=== PATIENT | male | born 1955 | race Caucasian/White ===

== ENCOUNTER 2018-09-22 09:49 | Outpatient (REF) | payer OTHER, MEDICAID, SELFPAY ==
[2018-09-22 22:15] LABS: ALT 42 U/L (12-78); AST 21 U/L (15-37); Albumin 4.1 g/dL (3.4-5.0); Alkaline Phosphatase 73 U/L (46-116); Bilirubin, Direct 0.14 mg/dL (0.00-0.20); Bilirubin, Total 0.5 mg/dL (0.2-1.0); Total Protein 7.6 g/dL (6.4-8.2)
[2018-09-24 19:48] LABS: Tissue Transglutaminase Ab IgA 11.1 U/mL
== END 2018-09-22 10:09 ==
LOC: NCHCN 09:49
PROVIDERS: PCP Registered Nurse; Visit Provider Internal Medicine
DX: R10.13 Epigastric pain (principal)
CPT/HCPCS: 80076; 83516

== ENCOUNTER 2019-09-26 08:59 | Outpatient (REF) | payer OTHER, SELFPAY ==
[2019-09-26 22:52] LABS: BUN 19 mg/dL (7-18); CREATININE 0.75 mg/dL (0.70-1.30); Calcium 8.3 mg/dL (8.5-10.1); Calculated LDL 125 mg/dL; Chloride 104 mmol/L (98-107); Cholesterol 197 mg/dL (<200); Glucose 95 mg/dL (74-106); HDL Cholesterol 54 mg/dL (40-60); Sodium 141 mmol/L (136-145); Triglyceride 90 mg/dL (<150)
== END 2019-09-26 09:19 ==
LOC: NCHCN 08:59
PROVIDERS: PCP Registered Nurse; Visit Provider Internal Medicine
DX: Z00.00 Encounter for general adult medical examination without abnormal findings (principal); R03.0 Elevated blood-pressure reading, without diagnosis of hypertension; Z13.220 Encounter for screening for lipoid disorders
CPT/HCPCS: 80048; 80061

== ENCOUNTER 2020-03-07 11:15 | Outpatient (REF) | payer OTHER, SELFPAY ==
[2020-03-07 21:40] LABS: Calculated LDL 130 mg/dL (<100); Cholesterol 213 mg/dL (<200); HDL Cholesterol 65 mg/dL (40-60); Triglyceride 91 mg/dL (<150)
== END 2020-03-07 11:35 ==
LOC: NCHCN 11:15
PROVIDERS: PCP Registered Nurse; Visit Provider Internal Medicine
DX: Z13.6 Encounter for screening for cardiovascular disorders (principal)
CPT/HCPCS: 80061

== ENCOUNTER 2020-08-13 11:46 | Outpatient (CLI) | payer OTHER, SELFPAY ==
--- NOTE | 2020-08-13 | DI.RAD_ITS ---
EXAM: XR HIP RT COMPLETE AP PELVIS CLINICAL HISTORY: INCREASED RT HIP PAIN S/P REVISION OF REGGIE, Z96.641 TECHNIQUE: COMPARISON: No exams were available for comparison FINDINGS: Three views were obtained. There are total hip joint replacements in position bilaterally. No prior radiographs available for comparison. On the left the visualized portions of the THR appear intact. On the right, the acetabular component appears well seated. The femoral component appears well seate d in the femur with proximal femoral deformity noted, cerclage wires appear intact in the proximal me taphyseal diaphyseal region. IMPRESSION: No gross displacement of right hip prosthesis. No prior films available for comparison so interval c hange cannot be assessed. RADIATION DOSE DELIVERED: Total DLP Total DLP
== END 2020-08-13 12:06 ==
PROVIDERS: PCP Registered Nurse; Visit Provider Orthopaedic Surgery
DX: Z96.641 Presence of right artificial hip joint (principal); M25.551 Pain in right hip
CPT/HCPCS: 73502

== ENCOUNTER 2020-10-05 09:56 | Outpatient (CLI) | payer OTHER, SELFPAY ==
[2020-10-05 13:34] LABS: ALT 32 U/L (16-63); AST 16 U/L (15-37); Albumin 3.9 g/dL (3.4-5.0); Alkaline Phosphatase 107 U/L (46-116); Bilirubin, Total 0.3 mg/dL (0.2-1.0); Total Protein 7.5 g/dL (6.4-8.2)
[2020-10-05 13:35] LABS: Bilirubin, Direct < 0.05 mg/dL (0.00-0.20)
[2020-10-08 10:43] LABS: PSA, Ultrasensitive 8.8 ng/mL (<= 4.5)
[2020-10-09 11:02] LABS: Testosterone, Total 370 ng/dL (240-950)
== END 2020-10-05 10:16 ==
PROVIDERS: PCP Registered Nurse; Visit Provider Radiology Radiation Oncology
DX: C61 Malignant neoplasm of prostate (principal)
CPT/HCPCS: 36415; 80076; 84153; 84403

== ENCOUNTER 2020-11-07 14:07 | Outpatient (CLI) | payer OTHER, SELFPAY ==
[2020-11-07 14:37] LABS: ALT 37 U/L (16-63); AST 20 U/L (15-37); Albumin 3.9 g/dL (3.4-5.0); Alkaline Phosphatase 124 U/L (46-116); Bilirubin, Total 0.3 mg/dL (0.2-1.0); Total Protein 7.8 g/dL (6.4-8.2)
[2020-11-07 14:43] LABS: Bilirubin, Direct < 0.05 mg/dL (0.00-0.20)
== END 2020-11-07 14:08 | disposition home or self-care (01) ==
PROVIDERS: PCP Registered Nurse; Visit Provider Radiology Radiation Oncology
DX: C61 Malignant neoplasm of prostate (principal)
CPT/HCPCS: 36415; 80076

== ENCOUNTER 2020-11-14 04:05 | Outpatient (CLI) | payer OTHER, SELFPAY ==
[2020-11-14 09:32] LABS: ALT 42 U/L (16-63); AST 22 U/L (15-37); Albumin 3.8 g/dL (3.4-5.0); Alkaline Phosphatase 103 U/L (46-116); Bilirubin, Direct 0.07 mg/dL (0.00-0.20); Bilirubin, Total 0.4 mg/dL (0.2-1.0); Total Protein 7.8 g/dL (6.4-8.2)
== END 2020-11-14 04:06 | disposition home or self-care (01) ==
LOC: LBO 04:05
PROVIDERS: PCP Registered Nurse; Visit Provider Radiology Radiation Oncology
DX: C61 Malignant neoplasm of prostate (principal)
CPT/HCPCS: 36415; 80076

== ENCOUNTER 2021-08-20 18:44 | Observation (INO) | payer OTHER, SELFPAY ==
[2021-08-20] VITALS (27 sets, daily range): BP systolic 150–191; BP diastolic 75–105; PULSE 57–86; RESP 11–22; TEMP 36.4; O2SAT 93–98
--- NOTE | 2021-08-20 19:15 | DI.CT_ITS ---
Exam(s) CT ABDOMEN PELVIS W EXAM: CT ABDOMEN PELVIS W CLINICAL HISTORY: UPper abd pain, Prostate cancer TECHNIQUE: Imaging Protocol: Axial computed tomography images with coronal and sagittal reformatted images were created and reviewed CONTRAST MATERIAL: Intravenous: Omnipaque 350 Contrast volume:100 mL Oral: No COMPARISON: No exams were available for comparison FINDINGS: ABDOMEN: Lung Bases: Dependent atelectasis. Liver: Diffuse fatty infiltration of the liver. No measurable mass. Hepatomegaly. The liver measure s 20 cm long. Portal, Superior Mesenteric, and Splenic Veins: Unremarkable. Gallbladder and Biliary Tract: Status post cholecystectomy. No biliary ductal dilatation. Pancreas: Normal density, no abnormal calcifications or inflammatory process. Spleen: Normal. Adrenals: No masses seen. Kidneys: Normal size, contour and axis. No radiodense stones or obstructive uropathy. Small bilateral parapelvic cysts. No follow-up is recommended. Abdominal Aorta: Abdominal portion non-dilated. Atherosclerosis. Bowel: No obstruction or bowel wall thickening. Appendix is unremarkable. Small hiatal hernia. There is diverticulosis seen throughout the colon. There is no convincing evidence of acute diverticuliti s. Peritoneal Cavity: No ascites, collection or mesenteric inflammatory response. No free air. Lymph Nodes: Within normal limits. Bones: Within normal limits for the patient's age. Bilateral total hip replacements. Soft Tissues: Unremarkable. Small fat containing paraumbilical hernia. PELVIS: Bladder: Grossly unremarkable. Portions of the urinary bladder obscured by artifact from the patient 's hip prostheses. Reproductive Organs: Prostatic radiation therapy is present. Lymph Nodes: Within normal limits. Bones: Within normal limits for the patient's age. IMPRESSION: No acute abdominal or pelvic process. RADIATION DOSE DELIVERED: 1,177.76mGy.cm Total DLP DATA REPOSITORY: All CT scans at this facility are submitted to the National Radiology Data Registry (NRDR) Dose Index Registry (DIR) with the [employer] (ACR). RADIATION OPTIMIZATION: All CT scans at this facility use at least one of these dose optimization te chniques: automated exposure control; mA and/or kV adjustment per patient size (includes targeted exa ms where dose is matched to clinical indication); or iterative reconstruction.
--- NOTE | 2021-08-20 19:25 | ED.GENADUL_ITS ---
Discharge Plan Disposition Patient Disposition: [facility] INPATIENT Condition: Improving Discharge Details Chief Complaint: Abd Prob Clinical Impression: Hepatitis Admit Date/Time: 08/20/21 21:41 Admit Provider: Dominick Garcia Attending Provider: Dominick Garcia Primary Care Provider: Kellen Nair ED Provider: Wayne Glasgow Medical Decision Making <Octavio Middleton MD - Last Filed: 08/20/21 19:29> 65-year-old male presents from home with his . He has had days of abdominal pain that worsened today. Patient has prostate cancer for which he is undergoing radiation therapy with Lupron injections. He was told at her office visit last week that his liver enzymes were elevated and the most recent Lupron Depo shot was skipped. Patient arrives to the ER pleasant, alert and interactive. His blood pressure elevated 191/87, pulse 67, and afebrile at 36.4. The patient has moderate abdominal tenderness on exam without significant focality and without rebound. Differential diagnosis includes bowel obstruction, ascites, transaminitis, peritonitis, metastatic cancer. Patient had IV access established, given fluids and parenteral analgesia, referred for laboratory testing and CT images. <Wayne Glasgow DO - Last Filed: 08/20/21 23:41> Patient was signed out to me by my colleague Dr. Octavio Middleton. Please refer to his HPI, physical exam, assessment and plan. At time of signout we are awaiting labs and imaging. Concern was for abdominal pain. Laboratory work-up shows notable transaminitis/hepatitis, WBC count mildly low compared to normal, lymphocyte count mildly low compared to normal. Review of the patient's labs from [facility] just yesterday demonstrate that his AST and ALT have doubled acutely in the last 24 hours. No biliary duct dilatation per CT scan. Bilirubin is elevated, with this primarily being attributed to the conjugated bilirubin suggesting acute hepatitis. Likely secondary to patient's medications, less likely viral. Lupron certainly could be the causative agent but he did not get his Lupron for the month of August yet secondary to this mild hepatitis. We will send a hepatitis screening panel. Patient's pain is well controlled with narcotics at this time. Because of the patient's age, risk factors, notable hepatitis I do feel that admission would be indicated at this time. Discussed the case with the hospitalist Dr. Almonte, he agrees with the assessment and plan. I will place bridging orders on his behalf. Repeat abdominal exam at this time demonstrates no evidence of an acute surgical abdomen requiring emergent surgical management. I have extensively reviewed the treatment plan with the patient. I have addressed all patient concerns at this time. I have also discussed the plan with the admitting physician and they agree with the current assessment and plan and have agreed to assume responsibility for the patient. All parties demonstrate verbal understanding and agreement with our assessment and plan at this time. The documentation in this chart was dictated using [employer] dictation software. Please excuse any dictation errors. FINDINGS: Lungs: Dependent subsegmental atelectasis. Liver: There is diffuse decrease in hepatic parenchymal density, consistent with severe fatty infiltration. Minimal hepatomegaly. No mass. Gallbladder and bile ducts: The patient is status post cholecystectomy. No biliary ductal dilatation. Pancreas: Normal. No ductal dilation. Spleen: Normal. No splenomegaly. Adrenal glands: Normal. No mass. Kidneys and ureters: Homogeneous enhancement of renal parenchyma. Bilateral parapelvic cysts. No hydronephrosis. Stomach and bowel: No bowel obstruction. Multiple colonic diverticula. Appendix: Normal appendix. Intraperitoneal space: Unremarkable. No free air. No significant fluid collection. Vasculature: Unremarkable. No abdominal aortic aneurysm. Lymph nodes: Unremarkable. No enlarged lymph nodes. Urinary bladder: Unremarkable as visualized. Reproductive: Status post prostatic brachytherapy. Bones/joints: Status post bilateral total hip replacements.The spine demonstrates moderate degenerative changes at multiple levels. No suspicious lucent or sclerotic bone lesions. Soft tissues: Unremarkable. IMPRESSION: 1. No acute findings. 2. Minimal hepatomegaly. 3. Colonic diverticula. 4. Parapelvic cysts. Thank you for allowing us to participate in the care of your patient. Dictated and Authenticated by: Joselo Saleem DO 08/20/2021 9:18 PM Eastern Time ([place] & C HPI <Octavio Middleton MD - Last Filed: 08/20/21 19:29> General Mode of arrival: ambulatory . Date/Time Provider Initiated Documentation: 08/20/21 19:06 . Limitations to Documentation: no limitations . Information obtained by: patient and family . History of Present Illness 65 year old M presents to the emergency department with the chief complaint of Abdominal pain, described as moderate, Quality is described as constant, Patient reports no radiation. Patient started experiencing this day(s) and it has been constant. No relieving factors improve symptom(s), No exacerbating factors reported . Patient notes loss of appetite; denies chest pain, cough, fever/chills and shortness of breath. Patient did receive the following treatments prior to arrival, none Related Data Home Medications Medication Instructions Recorded Confirmed oxycodone-acetaminophen [Percocet] 1 tab PO DIRECTED PRN 08/20/21 08/20/21 tamsulosin [Flomax] 0.4 mg PO DAILY 08/20/21 08/20/21 Allergies Allergy/AdvReac Type Severity Reaction Status Date / Time No Known Allergies Allergy Unverified 08/20/21 18:55 General Stated Complaint: Abd Prob BIPIN: 3 Review of Systems <Octavio Middleton MD - Last Filed: 08/20/21 19:29> Narrative: Undergoing prostate radiation therapy weekdays, Lupron injections the last of which was skipped for elevated liver enzymes. No cough, no fever. Nauseated without emesis. 8 systems reviewed and otherwise negative PFSH <Octavio Middleton MD - Last Filed: 08/20/21 19:29> Active Problem List (Updated 08/20/21 @ 23:41 by Wayne Glasgow DO) Prostate cancer (Chronic) Hepatitis (Acute) Social History Smoking/Tobacco Use Status: Never Smoking risk assessment performed?: Yes Alcohol Intake: never Substance use type: does not use Exam <Octavio Middleton MD - Last Filed: 08/20/21 19:29> Narrative Exam Narrative: GEN: awake, alert, oriented 3. Pleasant, well groomed, in teractive. HEAD: Normocephalic, atraumatic ENT: Mucous membranes dry, External ear exam unremarkable EYES: PERRL, EOMI NECK: Full ROM, no ADDY, no menigismus CHEST/RESP: Nontender, clear to auscultation bilateral, no wheeze/rhonchi/rales CARDIOVASCULAR: RRR, no murmur, rub minesh. 2+ Rad pulse bilateral ABDOMEN: Soft, tender in the upper to right abdomen without rebound, no mass. +Bowel sounds EXT: Full ROM, no edema, no rash Neuro: Grossly normal neurologic exam, conversant, interactive. Psych: Speech fluent, thoughts congruent, affect normal Course <Octavio Middleton MD - Last Filed: 08/20/21 19:29> Vital Signs Vital signs: Vital Signs Temperature 36.4 C L 08/20/21 18:49 Pulse 67 08/20/21 18:49 Respiratory Rate 16 08/20/21 18:49 Blood Pressure 191/87 H 08/20/21 18:49 Pulse Oximetry 96 08/20/21 18:49 Temperature 36.4 C L 08/20/21 18:49 Temperature Source Skin 08/20/21 18:49 Pulse 67 08/20/21 18:49 Respiratory Rate 16 08/20/21 18:49 Respiratory Effort 08/20/21 18:49 Blood Pressure 191/87 H 08/20/21 18:49 Blood Pressure Position Supine 08/20/21 18:49 Pulse Oximetry 96 08/20/21 18:49 Oxygen Delivery Method Room Air 08/20/21 18:49 Oxygen Flow Rate 0 08/20/21 18:49 Pain Level 8 08/20/21 19:10 Sign Out <Octavio Middleton MD - Last Filed: 08/20/21 19:29> Sign Out Data: Sign Out Comment: Abdominal pain, undergoing prostate cancer treatment, follow- up labs and imaging Last updated by Octavio Middleton MD at 08/20/21 19:31
[2021-08-20 19:37] LABS: Lactate 1.1 mmol/L (0.6-1.4)
[2021-08-20 19:39] LABS: Abs Immature Grans 0.02 10^3/uL (0.0-0.06); Absolute Basophil Count 0.04 10^3/uL (0.0-0.2); Absolute Eosinophil Count 0.16 10^3/uL (0.0-0.7); Absolute Lymphocyte Count 0.36 10^3/uL (1.2-3.4); Absolute Monocyte Count 0.48 10^3/uL (0.1-0.8); Absolute Neutrophil Count 2.09 10^3/uL (1.2-6.7); Basophils % 1.3; Eosinophils % 5.1; HCT 39.4 % (40.0-50.0); HGB 13.4 g/dL (13.5-17.5); Immature Grans % 0.6; Lymphocytes % 11.4; MCH 31.1 pg (27.0-33.0); MCV 91.4 fL (80-95); Monocytes % 15.2; Neutrophils % 66.4; Nucleated RBC 0 %; Platelet Count 190 10^3/uL (130-400); RBC 4.31 10^6/uL (4.36-5.78); RDW 13.3 % (11.8-14.1); RDW-SD 45.5 fL; WBC 3.15 10^3/uL (4.4-10.8)
[2021-08-20] MEDS: MORPHine 10 MG/ML VIAL 4 MG IVP (19:40)
[2021-08-20 19:58] LABS: AST 793 U/L (15-37); Albumin 3.6 g/dL (3.4-5.0); Alkaline Phosphatase 140 U/L (46-116); Anion Gap 12.2 mmol/L (3-11); BUN 18 mg/dL (7-18); Bilirubin, Total 2.2 mg/dL (0.2-1.0); CO2 23.8 mmol/L (21.0-32.0); CREATININE 0.8 mg/dL (0.70-1.30); Calcium 8.8 mg/dL (8.5-10.1); Chloride 102 mmol/L (98-107); Glucose 101 mg/dL (74-106); Lipase 102 U/L (73-393); Magnesium 2.2 mg/dL (1.8-2.4); Potassium 3.5 mmol/L (3.5-5.1); Sodium 138 mmol/L (136-145); Total Protein 7.1 g/dL (6.4-8.2)
[2021-08-20 20:14] LABS: ALT 1424 U/L (16-63)
[2021-08-20] MEDS: Omnipaque 350 MG/ML 100 ML BTL IJ (20:14)
[2021-08-20] MEDS: Normal Saline Flush 10 ML SYR IVP ×2 (20:15→22:55)
[2021-08-20 20:29] LABS: Bilirubin, Direct 1.5 mg/dL (0.0-0.2)
--- NOTE | 2021-08-20 21:18 | DI.VRAD_ITS ---
PROCEDURE INFORMATION: Exam: CT Abdomen And Pelvis With Contrast Exam date and time: 08/20/2021 7:25 PM Age: 65 years old Clinical indication: Abdominal pain; Localized; Prior surgery; Surgery date: 6+ months; Surgery type: Cholecystectomy, and both hips replaced; Patient HX: Upper abd pain increasing, ; additional info: Prostate cancer, currently being treated on lupron TECHNIQUE: Imaging protocol: Computed tomography of the abdomen and pelvis with contrast. Radiation optimization: All CT scans at this facility use at least one of these dose optimization techniques: automated exposure control; mA and/or kV adjustment per patient size (includes targeted exams where dose is matched to clinical indication); or iterative reconstruction. Contrast material: OMNIPAQUE 350; Contrast volume: 100 ml; Contrast route: INTRAVENOUS (IV); COMPARISON: CR XR HIP RT COMPLETE AP PELVIS 08/13/2020 1:17 PM FINDINGS: Lungs: Dependent subsegmental atelectasis. Liver: There is diffuse decrease in hepatic parenchymal density, consistent with severe fatty infiltration. Minimal hepatomegaly. No mass. Gallbladder and bile ducts: The patient is status post cholecystectomy. No biliary ductal dilatation. Pancreas: Normal. No ductal dilation. Spleen: Normal. No splenomegaly. Adrenal glands: Normal. No mass. Kidneys and ureters: Homogeneous enhancement of renal parenchyma. Bilateral parapelvic cysts. No hydronephrosis. Stomach and bowel: No bowel obstruction. Multiple colonic diverticula. Appendix: Normal appendix. Intraperitoneal space: Unremarkable. No free air. No significant fluid collection. Vasculature: Unremarkable. No abdominal aortic aneurysm. Lymph nodes: Unremarkable. No enlarged lymph nodes. Urinary bladder: Unremarkable as visualized. Reproductive: Status post prostatic brachytherapy. Bones/joints: Status post bilateral total hip replacements.The spine demonstrates moderate degenerative changes at multiple levels. No suspicious lucent or sclerotic bone lesions. Soft tissues: Unremarkable. IMPRESSION: 1. No acute findings. 2. Minimal hepatomegaly. 3. Colonic diverticula. 4. Parapelvic cysts. Dictated and Authenticated by: Joselo Saleem MD. Ordering:ROYAL Cunningham MD
[2021-08-20 22:02] LABS: Source Nasal/Nares
--- NOTE | 2021-08-20 22:20 | HPE_ITS ---
Date of service: 08/20/21 Time of Service: 22:20 Assessment and Plan Assessment and plan (1) Hepatitis: Status: Acute Assessment and plan: Etiology of the liver abnormalities is not clear at this time. We will check more labs and check an ultrasound of his abdomen tomorrow. Would be unusual for the Lupron to because of doubling of the liver tests in 1 day after having not had the drug for about 1 month. (2) Prostate cancer: Status: Chronic Assessment and plan: This appears to be stable at the present time. History of Present Illness History of Present Illness Chief Complaint: abd pain Narrative: This 65-year-old male is here because of abdominal pain. He said the intensity of its been 8-9 out of 10 at times. Been present on and off for last 2 to 3 months but got much worse today. He has felt that his abdomen has been somewhat bloated at times. He was diagnosed with localized prostate cancer in January of this year and after discussion with his doctors elected to do prostate seeds, spot radiation and Lupron infusions. His been getting Lupron infusions since January of this year. He came the emergency department today because of increased pain. He had labs done yesterday at [facility] which showed his AST to be about 450 ALT about 750 and his PSA test was near 0. However because of increased pain today he came here and was found to have much increased ALT and AST and an elevated bilirubin. He does not use any alcohol or tobacco or any other r ecreational drugs. 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 His only current medicines are tamsulosin and as needed Percocet for shoulder and hip pain and his Lupron. His last Lupron dose was given about a month ago. He did not get it yesterday because of the abnormal liver test. He has had some nausea and has had normal bowel movements. Has had 2 colonoscopies in the past which did show some polyps and will be getting another colonoscopy and 5 years from the last one. He has not vomited. Has no history of liver function abnormalities in the past. He has not been traveling recently except back and forth for his treatments. He has had both coronavirus vaccines. Has not been around anyone else has been sick. He lives with his and 2 children who are 27 and 16 years old. Previous surgeries include cholecystectomy and 2 hip replacements all of which have been done last year and a half. Review of Systems Constitutional Constitutional: Denies chills, Denies fever(s), Denies malaise and Denies poor appetite ENT Ears, Nose, Mouth, and Throat: Denies odynophagia Cardiovascular Cardiovascular: Denies chest pain, Denies rapid heart rate, Denies palpitations and Denies dyspnea Respiratory Respiratory: Denies chest congestion, Denies cough and Denies dyspnea Gastrointestinal Gastrointestinal: Reports abdominal pain, Reports bloating, Denies change in bowel habits, Denies coffee ground emesis, Reports heartburn, Denies diarrhea, Reports nausea, Denies odynophagia and Denies hematemesis Genitourinary Genitourinary: Reports difficulty urinating, Denies urinary frequency, Reports urinary hesitancy and Denies urinary urgency Endocrine Endocrine: Denies palpitations [facility] Active Problem List (Updated 08/20/21 @ 22:31 by Dominick Garcia MD) Prostate cancer (Chronic) Hepatitis (Acute) Social History Smoking/Tobacco Use Status: Never Smoking risk assessment performed?: Yes Alcohol Intake: never Substance use type: does not use Meds Allergies and Home Medications Allergies Allergy/AdvReac Type Severity Reaction Status Date / Time No Known Allergies Allergy Unverified 08/20/21 18:55 Home Medications Medication Instructions Recorded Confirmed Type oxycodone-acetaminophen [Percocet] 1 tab PO DIRECTED PRN 08/20/21 08/20/21 History tamsulosin [Flomax] 0.4 mg PO DAILY 08/20/21 08/20/21 History Exam Const General: cooperative and not ill appearing Nutritional Appearance: overweight Orientation: alert, awake and oriented x3 Eyes Eyelids: eyelids normal Conjunctivae: conjunctivae normal Sclera: sclerae normal Neck Neck: normal visual inspection and no lymphadenopathy Thyroid: thyroid normal Resp Effort & Inspection: normal respiratory effort and able to speak in complete sentences Auscultation: no rales, no rhonchi and no wheezes Cardio Jugular venous pressure: no JVD Rate: regular rate Rhythm: regular rhythm Heart Sounds: S1 normal, S2 normal, no gallops and no murmurs GI Inspection: normal to inspection Palpation: soft, no masses and nontender Other: Liver is palpable in the right upper quadrant just below the right costal margin. Neuro Cranial Nerves: CN's II-XI intact bilaterally Motor: muscle tone normal throughout Extrem General: normal to inspection and no pedal edema Results Labs Result diagrams: 08/20/21 19:10 08/20/21 19:10 Labs: Laboratory Results - last 24 hr 08/20/21 08/20/21 08/20/21 19:10 19:10 19:10 WBC 3.15 L RBC 4.31 L Hgb 13.4 L Hct 39.4 L MCV 91.4 MCH 31.1 MCHC 34.0 RDW 13.3 Plt Count 190 MPV 12.0 H Immature Gran % 0.6 Neutrophils % 66.4 Lymphocytes % 11.4 Monocytes % 15.2 Eosinophils % 5.1 Basophils % 1.3 Nucleated RBC % 0 Absolute Neutrophils 2.09 Absolute Lymphocytes 0.36 L Absolute Monocytes 0.48 Absolute Eosinophils 0.16 Absolute Basophils 0.04 VBG Lactate 1.1 Sodium 138 Potassium 3.5 Chloride 102 Carbon Dioxide 23.8 Anion Gap 12.2 H BUN 18 Creatinine 0.8 Estimated GFR/1.73 m2 >= 60.00 Glucose 101 Calcium 8.8 Magnesium 2.2 Total Bilirubin 2.2 H Conjugated Bilirubin AST 793 H ALT 1424 H Alkaline Phosphatase 140 H Total Protein 7.1 Albumin 3.6 Lipase 102 COVID-19 Source 08/20/21 08/20/21 19:10 21:56 WBC RBC Hgb Hct MCV MCH MCHC RDW Plt Count MPV Immature Gran % Neutrophils % Lymphocytes % Monocytes % Eosinophils % Basophils % Nucleated RBC % Absolute Neutrophils Absolute Lymphocytes Absolute Monocytes Absolute Eosinophils Absolute Basophils VBG Lactate Sodium Potassium Chloride Carbon Dioxide Anion Gap BUN Creatinine Estimated GFR/1.73 m2 Glucose Calcium Magnesium Total Bilirubin Conjugated Bilirubin 1.5 H AST ALT Alkaline Phosphatase Total Protein Albumin Lipase COVID-19 Source Nasal/Nares Last Vital Signs Temp 36.4 C L 08/20/21 18:49 Pulse 64 08/20/21 20:01 Resp 18 08/20/21 21:40 BP 150/75 H 08/20/21 20:01 Pulse Ox 97 08/20/21 21:40
[2021-08-20] MEDS: Normal Saline 1,000 ML 125 ML IV (22:55)
[2021-08-20 23:06] LABS: HCT 38.4 % (40.0-50.0); HGB 12.9 g/dL (13.5-17.5); MCH 30.9 pg (27.0-33.0); MCHC 33.6 % (32.0-36.0); MCV 92.1 fL (80-95); MPV 11.4 fL (8.0-11.0); Platelet Count 163 10^3/uL (130-400); RBC 4.17 10^6/uL (4.36-5.78); RDW 13.3 % (11.8-14.1); RDW-SD 45.7 fL; WBC 3.35 10^3/uL (4.4-10.8)
[2021-08-20] MEDS: oxyCODONE 5 mg/Acetaminophen 325 mg TAB 1 TAB PO (23:06)
[2021-08-20 23:42] LABS: COVID-19 PCR Negative (Negative)
[2021-08-20 23:47] LABS: Bilirubin Small (Negative); Blood Negative (Negative); Clarity Clear (Clear); Glucose Negative (Negative); Ketones Trace mg/dL (Negative); Leukocyte Esterase Negative (Negative); Nitrite Negative (Negative); Specific Gravity 1.015 (1.005-1.025); pH 5.5 (5-8)
--- NOTE | 2021-08-21 | DI.US_ITS ---
Exam(s) US ABDOMEN EXAM: US ABDOMEN CLINICAL HISTORY: hepatitis TECHNIQUE: Ultrasound abdomen performed using standard protocol. COMPARISON: CT CT ABDOMEN PELVIS W from 08/20/[address] ABDOMEN PELVIS W from 08/20/2021 FINDINGS: ABDOMINAL AORTA AND IVC: Visualized portions normal caliber. PANCREAS: Normal where visualized. LIVER: There is diffuse increased echogenicity of the liver consistent with fatty infiltration. The liver measures 19.6 cm long. Hepatopedal flow in the Portal Vein. GALLBLADDER: Status post cholecystectomy. BILIARY SYSTEM: Common bile duct measures 8.5 mm. No intrahepatic biliary ductal dilation. WRIGHT'S SIGN: Negative. KIDNEYS: Kidneys are symmetric in size. No evidence of renal calculi. No evidence of hydronephrosis. Bilateral parapelvic cysts. SPLEEN: Not enlarged. ASCITES: None seen. IMPRESSION: 1. Hepatomegaly and hepatic steatosis. 2. Status post cholecystectomy. DATA REPOSITORY:
[2021-08-21 00:56] LABS: Ammonia 22 umol/L (11-32)
[2021-08-21 01:16] LABS: Acetaminophen < 2 ug/mL (10-30)
[2021-08-21 04:30] VITALS: BP 135/78; PULSE 54; RESP 16; TEMP 36.5; O2SAT 94
[2021-08-21] MEDS: Normal Saline 1,000 ML 125 ML IV ×3 (06:01→22:21)
[2021-08-21 07:33] VITALS: BP 173/90; PULSE 56; RESP 18; TEMP 36.1; O2SAT 98
[2021-08-21 07:46] LABS: ESR 23 mm/hr (0-20)
[2021-08-21 08:07] LABS: AST 623 U/L (15-37); Albumin 3.3 g/dL (3.4-5.0); Alkaline Phosphatase 127 U/L (46-116); Anion Gap 6.5 mmol/L (3-11); BUN 13 mg/dL (7-18); Bilirubin, Total 2.1 mg/dL (0.2-1.0); CO2 30.5 mmol/L (21.0-32.0); CREATININE 0.9 mg/dL (0.70-1.30); Calcium 8.6 mg/dL (8.5-10.1); Calculated LDL 124 mg/dL (<100); Chloride 104 mmol/L (98-107); Cholesterol 215 mg/dL (<200); Glucose 107 mg/dL (74-106); HDL Cholesterol 78 mg/dL (40-60); Potassium 3.8 mmol/L (3.5-5.1); Sodium 141 mmol/L (136-145); Total Protein 6.4 g/dL (6.4-8.2); Triglyceride 66 mg/dL (<150)
[2021-08-21 08:32] LABS: ALT 1261 U/L (16-63); Ferritin 1143 ng/mL (26-388)
[2021-08-21 08:33] LABS: Iron 120 ug/dL (65-175); Total Iron Binding Capacity 261 ug/dL (250-450); Transferrin Sat 46 % (20-55)
[2021-08-21 08:52] LABS: *AMPHETAMINES SCREEN URINE Negative (Negative); *BARBITURATES SCREEN URINE Negative (Negative); *BENZODIAZEPINES SCREEN URINE Negative (Negative); Cannabinoids THC Negative (Negative); Cocaine Screen,Urine Negative (Negative); METHADONE URINE SCREEN Negative (Negative); OPIATES URINE SCREEN Positive (Negative)
[2021-08-21 08:56] LABS: Tricyclic Antidepressants Negative (Negative)
[2021-08-21 09:47] LABS: PTT Activated 22.3 sec (21.0-27.5); Prothrombin Time 10.2 sec (9.3-11.0)
[2021-08-21] MEDS: Tamsulosin 0.4 MG CAPCR PO (09:50)
--- NOTE | 2021-08-21 09:51 | PDOC.CMIN ---
- If Service Date Differs Date of service: 08/21/21 Time of Service: 09:51 Care Management Initial Assess REASON FOR HOSPITALIZATION:: Hepatitis PAST MEDICAL HISTORY/PAST SURGICAL HISTORY:: Active Problem List (Updated 08/20/21 @ 22:31 by Dominick Garcia MD). Prostate cancer (Chronic). Hepatitis (Acute) PREVIOUS FUNCTIONAL STATUS/SOCIAL/FAMILY SUPPORTS:: Dominick lives in [place], [place] with his Ele and 2 of his 4 children. He has 2 other adult children living outside the home. Dominick is semi-retired. 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 He is independent at baseline with all care and activities and continues to drive. CURRENT FUNCTIONAL STATUS:: Dominick was sitting up in bed when CM met with him. he was pleasant and cooperative and engaged easily with CM. Dominick shared that he has prostate cancer and is being treated with Lupron which he hads been told may be causing his hepatitis. His oncology team at [facility] is aware. ADVANCE DIRECTIVES:: none on file. states he has ADs and is [facility] Has patient been provided with info about the portal/API?: Yes Did the patient sign up for the portal?: No CODE STATUS:: Full Code INSURANCE COVERAGE / FINANCIAL ISSUES:: GISC[employer] CURRENT HOME/COMMUNITY SERVICES/EQUIPMENT:: none PRIMARY CARE PHYSICIAN:: Kellen Jeffries POTENTIAL DISCHARGE NEEDS:: Follow up with PCP and plan of care PATIENT/FAMILY EDUCATION NEEDS:: Review of discharge instructions, limitations, medications, follow up plan, activity, Ask Me Three TRANSPORTATION:: via private vehicle wirh friend/family PLAN:: Dominick will sandovalley be discharged home with no new services. He will follow up with his PCP and plan of care and transport with family. CM will continue to support Dominick and his discharge needs.
[2021-08-21 12:21] VITALS: BP 157/92; PULSE 65; RESP 17; TEMP 36.5; O2SAT 97
--- NOTE | 2021-08-21 13:47 | W.PM.PROGNOT ---
Date of Service Date of service: 08/21/21 Time of Service: 13:47 Assessment and Plan Assessment and plan (1) Hepatitis: Status: Acute Assessment and plan: Agree that etiology is not clear, but per my discussion with GI at [facility], it is less likely to be lupron. Await hepatitis, CMV, HSV, EBV, RPR, STUART, anti-smooth muscle testing and trend transaminases. INR ok, which is reassuring. (2) Prostate cancer: Status: Chronic Assessment and plan: S/p XRT/seeds. Monitor for sx of urinary retention. Continue flomax. (3) DVT prophylaxis: Status: Acute Assessment and plan: SC heparin (4) Discharge planning issues: Status: Acute Assessment and plan: Full code Continues to require hospitalization Subjective Subjective Interval history since last seen: Feels better today. Denies dizziness, chest pain, shortness of breath, nausea, diarrhea. Adamantly denies taking any OTC medications or supplements. He states he very rarely takes the percocet. Case was discused with [facility]: it was felt that lupron was less likely to be responsible for the hepatitis. Recommendations were to ensure with the radiologist that the vasculature in the abdomen/pelvis was patent (discussed with Dr Carey of radiology - he confirmed this). It was recommended to check CMV IgG/PCR, EVB panel, HSV, RPR, ceruloplasmin in addition to the studies we have already ordered. No additional images were indicated. Exam Narrative Exam Narrative: General: Very pleasant middle-aged male who looks well, comfortable laying in bed HEENT: EOMI, MMM Heart: RRR, no m/r/g Lungs: CTAB Abdomen: soft, nontender, nondistended Extremities: no edema BLE's Objective Last Vital Signs Temp 36.5 C 08/21/21 12: Pulse 65 08/21/21 12: Resp 17 08/21/21 12:21 BP 157/92 H 08/21/21 12:21 Pulse Ox 97 08/21/21 12:21 Laboratory Results - last 24 hr 08/20/21 08/20/21 08/20/21 19:10 19:10 19:10 WBC 3.15 L RBC 4.31 L Hgb 13.4 L Hct 39.4 L MCV 91.4 MCH 31.1 MCHC 34.0 RDW 13.3 Plt Count 190 MPV 12.0 H Immature Gran % 0.6 Neutrophils % 66.4 Lymphocytes % 11.4 Monocytes % 15.2 Eosinophils % 5.1 Basophils % 1.3 Nucleated RBC % 0 Absolute Neutrophils 2.09 Absolute Lymphocytes 0.36 L Absolute Monocytes 0.48 Absolute Eosinophils 0.16 Absolute Basophils 0.04 ESR PT INR APTT VBG Lactate 1.1 Sodium 138 Potassium 3.5 Chloride 102 Carbon Dioxide 23.8 Anion Gap 12.2 H BUN 18 Creatinine 0.8 Estimated GFR/1.73 m2 >= 60.00 Glucose 101 Calcium 8.8 Magnesium 2.2 Iron TIBC Transferrin % Sat Ferritin Total Bilirubin 2.2 H Conjugated Bilirubin AST 793 H ALT 1424 H Alkaline Phosphatase 140 H Ammonia Total Protein 7.1 Albumin 3.6 Triglycerides Total Cholesterol LDL Cholesterol, Calc HDL Cholesterol Lipase 102 Urine Color Urine Clarity Urine pH Ur Specific Carlyle Urine Protein Urine Ketones Urine Blood Urine Nitrite Urine Bilirubin Urine Urobilinogen Ur Leukocyte Esterase Urine Glucose Urine Opiates Screen Urine Methadone Screen Acetaminophen Ur Barbiturates Screen Ur Tricyclics Screen Ur Amphetamines Screen U Benzodiazepines Scrn Urine Cocaine Screen Ur THC Screen COVID-19 Source SARS-CoV-2 (PCR) 08/20/21 08/20/21 08/20/21 19:10 21:56 23:00 WBC 3.35 L RBC 4.17 L Hgb 12.9 L Hct 38.4 L MCV 92.1 MCH 30.9 MCHC 33.6 RDW 13.3 Plt Count 163 MPV 11.4 H Immature Gran % Neutrophils % Lymphocytes % Monocytes % Eosinophils % Basophils % Nucleated RBC % Absolute Neutrophils Absolute Lymphocytes Absolute Monocytes Absolute Eosinophils Absolute Basophils ESR PT INR APTT VBG Lactate Sodium Potassium Chloride Carbon Dioxide Anion Gap BUN Creatinine Estimated GFR/1.73 m2 Glucose Calcium Magnesium Iron TIBC Transferrin % Sat Ferritin Total Bilirubin Conjugated Bilirubin 1.5 H AST ALT Alkaline Phosphatase Ammonia Total Protein Albumin Triglycerides Total Cholesterol LDL Cholesterol, Calc HDL Cholesterol Lipase Urine Color Urine Clarity Urine pH Ur Specific Carlyle Urine Protein Urine Ketones Urine Blood Urine Nitrite Urine Bilirubin Urine Urobilinogen Ur Leukocyte Esterase Urine Glucose Urine Opiates Screen Urine Methadone Screen Acetaminophen Ur Barbiturates Screen Ur Tricyclics Screen Ur Amphetamines Screen U Benzodiazepines Scrn Urine Cocaine Screen Ur THC Screen COVID-19 Source Nasal/Nares SARS-CoV-2 (PCR) Negative 08/20/21 08/21/21 08/21/21 23:33 00:39 00:39 WBC RBC Hgb Hct MCV MCH MCHC RDW Plt Count MPV Immature Gran % Neutrophils % Lymphocytes % Monocytes % Eosinophils % Basophils % Nucleated RBC % Absolute Neutrophils Absolute Lymphocytes Absolute Monocytes Absolute Eosinophils Absolute Basophils ESR PT INR APTT VBG Lactate Sodium Potassium Chloride Carbon Dioxide Anion Gap BUN Creatinine Estimated GFR/1.73 m2 Glucose Calcium Magnesium Iron TIBC Transferrin % Sat Ferritin Total Bilirubin Conjugated Bilirubin AST ALT Alkaline Phosphatase Ammonia 22 Total Protein Albumin Triglycerides Total Cholesterol LDL Cholesterol, Calc HDL Cholesterol Lipase Urine Color Yellow Urine Clarity Clear Urine pH 5.5 Ur Specific Carlyle 1.015 Urine Protein Negative Urine Ketones Trace H Urine Blood Negative Urine Nitrite Negative Urine Bilirubin Small H Urine Urobilinogen 1.0 H Ur Leukocyte Esterase Negative Urine Glucose Negative Urine Opiates Screen Urine Methadone Screen Acetaminophen < 2 Ur Barbiturates Screen Ur Tricyclics Screen Ur Amphetamines Screen U Benzodiazepines Scrn Urine Cocaine Screen Ur THC Screen COVID-19 Source SARS-CoV-2 (PCR) 08/21/21 08/21/21 08/21/21 06:45 06:45 06:45 WBC RBC Hgb Hct MCV MCH MCHC RDW Plt Count MPV Immature Gran % Neutrophils % Lymphocytes % Monocytes % Eosinophils % Basophils % Nucleated RBC % Absolute Neutrophils Absolute Lymphocytes Absolute Monocytes Absolute Eosinophils Absolute Basophils ESR 23 H PT INR APTT VBG Lactate Sodium 141 Potassium 3.8 Chloride 104 Carbon Dioxide 30.5 Anion Gap 6.5 BUN 13 Creatinine 0.9 Estimated GFR/1.73 m2 >= 60.00 Glucose 107 H Calcium 8.6 Magnesium Iron 120 TIBC 261 Transferrin % Sat 46 Ferritin 1143 H Total Bilirubin 2.1 H Conjugated Bilirubin AST 623 H ALT 1261 H Alkaline Phosphatase 127 H Ammonia Total Protein 6.4 Albumin 3.3 L Triglycerides 66 Total Cholesterol 215 H LDL Cholesterol, Calc 124 H HDL Cholesterol 78 Lipase Urine Color Urine Clarity Urine pH Ur Specific C[place]le Urine Protein Urine Ketones Urine Blood Urine Nitrite Urine Bilirubin Urine Urobilinogen Ur Leukocyte Esterase Urine Glucose Urine Opiates Screen Urine Methadone Screen Acetaminophen Ur Barbiturates Screen Ur Tricyclics Screen Ur Amphetamines Screen U Benzodiazepines Scrn Urine Cocaine Screen Ur THC Screen COVID-19 Source SARS-CoV-2 (PCR) 08/21/21 08/21/21 08:22 09:10 WBC RBC Hgb Hct MCV MCH MCHC RDW Plt Count MPV Immature Gran % Neutrophils % Lymphocytes % Monocytes % Eosinophils % Basophils % Nucleated RBC % Absolute Neutrophils Absolute Lymphocytes Absolute Monocytes Absolute Eosinophils Absolute Basophils ESR PT 10.2 INR 1.0 APTT 22.3 VBG Lactate Sodium Potassium Chloride Carbon Dioxide Anion Gap BUN Creatinine Estimated GFR/1.73 m2 Glucose Calcium Magnesium Iron TIBC Transferrin % Sat Ferritin Total Bilirubin Conjugated Bilirubin AST ALT Alkaline Phosphatase Ammonia Total Protein Albumin Triglycerides Total Cholesterol LDL Cholesterol, Calc HDL Cholesterol Lipase Urine Color Urine Clarity Urine pH Ur Specific C[place] Urine Protein Urine Ketones Urine Blood Urine Nitrite Urine Bilirubin Urine Urobilinogen Ur Leukocyte Esterase Urine Glucose Urine Opiates Screen Positive A Urine Methadone Screen Negative Acetaminophen Ur Barbiturates Screen Negative Ur Tricyclics Screen Negative Ur Amphetamines Screen Negative U Benzodiazepines Scrn Negative Urine Cocaine Screen Negative Ur THC Screen Negative COVID-19 Source SARS-CoV-2 (PCR) Objective Narrative Objective Narrative: CT abdomen/pelvis: No acute abdominal or pelvic process. US abdomen: 1. Hepatomegaly and hepatic steatosis. 2. Status post cholecystectomy. PAWSS Have you Been Recently Intoxicated or Drunk Within the Last 30 days?: No Have you Ever Experienced Previous Episodes of Alcohol Withdrawal?: No Have you ever Experienced Withdrawal Seizures?: No Have you ever Experienced Delirium Tremens(DT)s?: No Have you ever undergone Alcohol Rehabilitation Treatment (i.e, inpt ot outpatient treatment programs)?: No Have you ever Experienced Blackouts?: No Have you ever Combined Alcohol with other Downers within the last 90 days?: No Have you ever Combined Alcohol with any other Substance of Abuse during the last 90 days?: No Positive Blood Alcohol level on Presentation? [PCS.BAL]: No Evidence of Increased Autonomic Activity (i.e. HR>120, tremor, sweating, agitation, nausea)?: No Result: 0
[2021-08-21 15:26] VITALS: BP 147/79; PULSE 62; RESP 16; TEMP 37; O2SAT 97
[2021-08-21] MEDS: Heparin 5,000 UNITS/ML VIAL 5000 UNITS SC ×2 (16:54→23:30)
[2021-08-21 19:52] VITALS: BP 156/89; PULSE 63; RESP 18; TEMP 36.3; O2SAT 97
[2021-08-22 00:02] VITALS: BP 154/87; PULSE 64; RESP 18; TEMP 36.6; O2SAT 97
[2021-08-22 03:40] VITALS: BP 160/90; PULSE 55; RESP 18; TEMP 36.4; O2SAT 98
[2021-08-22] MEDS: Normal Saline 1,000 ML 125 ML IV (05:45)
[2021-08-22 07:30] VITALS: BP 181/93; PULSE 61; RESP 18; TEMP 36.4; O2SAT 98
[2021-08-22 07:50] LABS: Abs Immature Grans 0.05 10^3/uL (0.0-0.06); Absolute Basophil Count 0.04 10^3/uL (0.0-0.2); Absolute Eosinophil Count 0.14 10^3/uL (0.0-0.7); Absolute Lymphocyte Count 0.54 10^3/uL (1.2-3.4); Absolute Monocyte Count 0.36 10^3/uL (0.1-0.8); Absolute Neutrophil Count 1.85 10^3/uL (1.2-6.7); Basophils % 1.3; Eosinophils % 4.7; HCT 39.2 % (40.0-50.0); HGB 13.4 g/dL (13.5-17.5); Immature Grans % 1.7; Lymphocytes % 18.1; MCH 30.8 pg (27.0-33.0); MCHC 34.2 % (32.0-36.0); MCV 90.1 fL (80-95); MPV 11.9 fL (8.0-11.0); Monocytes % 12.1; Neutrophils % 62.1; Nucleated RBC 0 %; Platelet Count 182 10^3/uL (130-400); RBC 4.35 10^6/uL (4.36-5.78); RDW 13.3 % (11.8-14.1); RDW-SD 44.5 fL; WBC 2.98 10^3/uL (4.4-10.8)
[2021-08-22] MEDS: Heparin 5,000 UNITS/ML VIAL 5000 UNITS SC (08:24)
[2021-08-22] MEDS: Tamsulosin 0.4 MG CAPCR PO (08:24)
[2021-08-22 08:25] LABS: ALT 852 U/L (16-63); AST 211 U/L (15-37); Albumin 3.3 g/dL (3.4-5.0); Alkaline Phosphatase 121 U/L (46-116); Anion Gap 10.8 mmol/L (3-11); BUN 11 mg/dL (7-18); Bilirubin, Direct 0.3 mg/dL (0.0-0.2); Bilirubin, Total 0.7 mg/dL (0.2-1.0); C-Reactive Protein 1.37 mg/dL (0.0-0.3); CO2 24.2 mmol/L (21.0-32.0); CREATININE 0.7 mg/dL (0.70-1.30); Calcium 8.4 mg/dL (8.5-10.1); Chloride 105 mmol/L (98-107); Glucose 113 mg/dL (74-106); Magnesium 2.3 mg/dL (1.8-2.4); Potassium 3.6 mmol/L (3.5-5.1); Sodium 140 mmol/L (136-145); Total Protein 6.8 g/dL (6.4-8.2)
[2021-08-22 10:36] LABS: Syphilis Serology (RPR) Negative (Negative)
--- NOTE | 2021-08-22 11:08 | DSE_ITS ---
Date of service: 08/22/21 Time of Service: 11:08 DS: Diagnosis Discharge Diagnosis (1) Hepatitis: Status: Acute (2) Prostate cancer: (3) COVID-19 ruled out by laboratory testing: Status: Ruled-out (4) Celiac disease: (5) Hypertension: Status: Chronic Discharge Plan Disposition Patient Disposition: HOME Condition: Improving Discharge Details Reason For Visit: Acute Hepatitis Admit Date/Time: 08/20/21 21:41 Admit Provider: Dominick Garcia Attending Provider: Dominick Garcia Primary Care Provider: Kellen Nair Hospital Course Hospital Course: Mr Castro is a 65 year old male with PMHx of prostate cancer s/p radiation and brachytherapy, on lupron, who was admitted to [facility] hospitalist service on 08/21/21 with acute hepatitis of unclear etiology, having presented with abdominal pain. The patient did have bloodwork at [facility] the day before prese ntation showing AST in 400s and ALT in 700s, but in our ED, his AST was 793, ALT 1424, alk phos was 140, T bili was 2.2. His INR was 1.0. The patient adamantly denied taking any OTC medications or supplements and states he took his prescribed percocet rather rarely. His acetaminophen level was undetectable. The patient underwent a CT of his abdomen/pelvis with contrast that revealed diffuse fatty infiltration of the liver with patent vasculature, no evidence of pancreatitis or mass. Ultrasound confirmed the same findings. By hospital day two, his transaminases started to decrease. Today, on the day of discharge, his AST is 211, ALT 852, and T bili is 7.0. Hepatitis testing is pending. [facility] was consulted in regards to the LFT abnormalities and felt that lupron was not the likely cause. Recommendations were made for additional testing for viral testing (CMV IgG/PCR, CMV panel, HSV, RPR, ceruloplasmin), in addition to STUART/anti-smooth muscle antibody, all of which are still pending at the time of discharge, but because of the patient's general improvement as well as positive dynamics in his labs, it is felt that the patient is stable for discharge home today with follow up with [facility]. NAC was not given on this admission as the patient adamantly denies any tylenol use. He was incidentally found to have hypertension on this admission for which he is being initiated on amlodipine 5 mg PO daily. He should follow up with his PCP in 1-2 weeks. Care for patient as well as completion of his discharge summary on day of discharge took 40 minutes. Home Meds and New Rx's Prescriptions: New amlodipine 5 mg tablet 5 mg PO DAILY Qty: 30 RF: 0 Continued oxycodone-acetaminophen [Percocet] 5-325 mg Tablet 1 tab PO TID RF: 0 tamsulosin [Flomax] 0.4 mg Capsule 0.4 mg PO DAILY RF: 0 Discharge Instructions Instructions: Amlodipine (By mouth), Low-Sodium Diet (DC), Hypertension (DC) Additional Instructions: Return to the hospital with any worsening of the abdominal pain, fever, bleeding, chest pain, shortness of breath. Bloodwork on 08/26/21. Follow up with your PCP in 1-2 weeks. Follow up with GI. 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 [Primary Care Provider] - Activity:: Activity as Tolerated Equipment/Supplies:: No Equipment Needed Diet:: Low Sodium Discharge Orders Discharge Orders: Discharge Order (Routine); Ordered 08/22/21 Ordered By: Nicki Romero Other Ambulatory Orders: Liver Panel (Routine) Timeframe: [id number] Facility: [facility] - Location: Laboratory Outpatient Ordered By: Nicki Romero DS: Summary Time Spent with Patient providing and/or coordinating discharge services: Greater than 30 minutes Status at Discharge Functional status at discharge: independent ambulation Overall status at discharge: patient is progressing back to baseline Mental Status: mental status grossly normal Speech and Movement: speech and movement normal Mood: congruent mood Affect: normal affect Exam Narrative Exam Narrative: General: Very pleasant middle-aged male who looks well, comfortable laying in bed HEENT: EOMI, MMM Heart: RRR, no m/r/g Lungs: CTAB Abdomen: soft, nontender, nondistended Extremities: no edema BLE's Psych Mental Status: mental status grossly normal Speech and Movement: speech and movement normal Mood: congruent mood Affect: normal affect DS: Data Vitals/I&O Vitals and I&O: Vital Signs Temperature 36.4 C L 08/22/21 07:30 Temperature Source Tympanic 08/22/21 07:30 Pulse 61 08/22/21 07:30 Pulse Rhythm Regular 08/22/21 08:00 Pulse 58 L 08/20/21 21:40 Respiratory Rate 18 08/22/21 07:30 Respiratory Effort Non-Labored 08/22/21 08:00 Respiratory Depth Normal 08/22/21 08:00 Respiratory Pattern Normal 08/22/21 08:00 Blood Pressure 181/93 H 08/22/21 07:30 Blood Pressure Mean 94 08/20/21 20:01 Blood Pressure Position Supine 08/20/21 18:49 Pulse Oximetry 98 08/22/21 07:30 Oxygen Delivery Method Room Air 08/22/21 07:30 Oxygen Flow Rate 0 08/22/21 07:30 Pain Level 1 08/22/21 07:30 Intake & Output 08/21/21 08/21/21 08/22/21 11:59 23:59 11:59 Intake Total 887.5 / 3344.167 2456.667 / 3344.167 1662.917 / 1662.917 Output Total 1750 / 3150 1400 / 3150 900 / 900 Balance -862.5 / 219.143 3671.667 / 194.167 762.917 / 762.917 Weight 98.9 kg 98.2 kg Intake: IV 887.5 / 2804.167 1916.667 / 2804.167 1422.917 / 1422.917 Oral 540 / 540 240 / 240 Output: Urine 1750 / 3150 1400 / 3150 900 / 900 Other: Urine Color Yellow Light Jenna Yellow Urine Appearance Clear Clear Clear Urine Odor None Normal Normal Comment unable to measure urine, pt urinated straight to the toilet Voiding Methods Urinal Toilet Toilet Data Completed and Pending Completed studies during hospitalization [Text1]: CT abdomen/pelvis: No acute abdominal or pelvic process. US abdomen: 1. Hepatomegaly and hepatic steatosis. 2. Status post cholecystectomy. Labs on day of discharge: Labs from last 24 hours 08/22/21 08/22/21 08/21/21 07:19 07:19 13:03 WBC 2.98 L RBC 4.35 L Hgb 13.4 L Hct 39.2 L MCV 90.1 MCH 30.8 MCHC 34.2 RDW 13.3 Plt Count 182 MPV 11.9 H Immature Gran % 1.7 Neutrophils % 62.1 Lymphocytes % 18.1 Monocytes % 12.1 Eosinophils % 4.7 Basophils % 1.3 Nucleated RBC % 0 Absolute Neutrophils 1.85 Absolute Lymphocytes 0.54 L Absolute Monocytes 0.36 Absolute Eosinophils 0.14 Absolute Basophils 0.04 Sodium 140 Potassium 3.6 Chloride 105 Carbon Dioxide 24.2 Anion Gap 10.8 BUN 11 Creatinine 0.7 Estimated GFR/1.73 m2 >= 60.00 Glucose 113 H Calcium 8.4 L Magnesium 2.3 Total Bilirubin 0.7 Conjugated Bilirubin 0.3 H AST 211 H ALT 852 H Alkaline Phosphatase 121 H C-Reactive Protein 1.37 H Total Protein 6.8 Albumin 3.3 L Syphilis Serology CMV IgG Ab CMV DNA Quant PCR EBV Early Antigen IgG EBV DNA, Quant Pending HSV Source Description Cancelled HSV I IgG Ab HSV II IgG HSV I DNA PCR Cancelled HSV II DNA PCR Cancelled Miscellaneous Test 08/21/21 08/21/21 08/21/21 13:03 13:03 06:45 WBC RBC Hgb Hct MCV MCH MCHC RDW Plt Count MPV Immature Gran % Neutrophils % Lymphocytes % Monocytes % Eosinophils % Basophils % Nucleated RBC % Absolute Neutrophils Absolute Lymphocytes Absolute Monocytes Absolute Eosinophils Absolute Basophils Sodium Potassium Chloride Carbon Dioxide Anion Gap BUN Creatinine Estimated GFR/1.73 m2 Glucose Calcium Magnesium Total Bilirubin Conjugated Bilirubin AST ALT Alkaline Phosphatase C-Reactive Protein Total Protein Albumin Syphilis Serology Pending CMV IgG Ab Pending CMV DNA Quant PCR Pending EBV Early Antigen IgG Pending EBV DNA, Quant HSV Source Description HSV I IgG Ab Pending HSV II IgG Pending HSV I DNA PCR HSV II DNA PCR Miscellaneous Test Pending PFSH All Active Problems (Updated 08/22/21 @ 11:26 by Nicki Romero MD) Hypertension (Chronic) Discharge planning issues (Acute) DVT prophylaxis (Acute) Hepatitis (Acute) Medical History (Updated 08/22/21 @ 11:26 by Nicki Romero MD) Celiac disease Prostate cancer Social History Smoking/Tobacco Use Status: Never Smoking risk assessment performed?: Yes Alcohol Intake: never Substance use type: does not use
[2021-08-22 11:45] VITALS: BP 159/90; PULSE 69; RESP 18; TEMP 36.7; O2SAT 98
[2021-08-22 11:59] LABS: Hepatitis A Antibody IgM Negative (Negative); Hepatitis B Core Antibody Negative (Negative); Hepatitis B surface Ag Negative (Negative); Hepatitis C Ab w Rflx HCV PCR Negative (Negative)
[2021-08-22 12:52] LABS: EBV EA IgG Negative (Negative)
[2021-08-22 15:57] LABS: Smooth Muscle Ab Screen Negative (Negative)
--- NOTE | 2021-08-22 17:22 | PDOC.CMDIS ---
- If Service Date Differs Date of service: 08/22/21 Time of Service: 17:22 LACE Index Scoring Tool - Questions: Length of Stay (in days): 2 Acuity (Admit via E.D.?): Yes Comorbidities: Any Tumor, Liver or Renal Disease E.D. Visits: 1 - Answers: Total Score: 11 Risk of Readmission: High Risk Care Management Discharge Reason for Hospitalization: Hepatitis Discharge Plan: Dominick will be discharged home with no new services. He will follow up with his PCP and Oncology team and plan of care and transport with family. Patient/Family Education Needs: Review of discharge instructions, limitations, medications, follow up plan, activity, Ask Me Three
[2021-08-22 23:23] LABS: EBV DNA Detect/Quant, P Undetected IU/mL (Undetected)
[2021-08-23 00:28] LABS: CMV DNA Detect/Quant, P Undetected IU/mL (Undetected)
[2021-08-23 11:09] LABS: CMV IgG Antibody Negative (See Note)
[2021-08-23 12:15] LABS: HSV Type 1 Ab, IgG Positive (Negative); HSV Type 2 Ab, IgG Positive (Negative)
[2021-08-23 15:47] LABS: Ceruloplasmin 26.6 mg/dL
[2021-08-28 15:03] LABS: ANA Interpretation Negative (Negative)
[2021-08-30 11:23] LABS: Misc Referral (MAYO) See Comments
== END 2021-08-22 13:12 | disposition home or self-care (01) ==
LOC: ER 19:46 → MS 22:23
PROVIDERS: Emergency Medicine; Internal Medicine; Admitting Provider Family Medicine; Emergency Provider Student in an Organized Health Care Education/Training Program; PCP Registered Nurse; Visit Provider Family Medicine
DX: K75.9 Inflammatory liver disease, unspecified (principal); I10 Essential (primary) hypertension; C61 Malignant neoplasm of prostate; Z20.822 Contact with and (suspected) exposure to COVID-19; K90.0 Celiac disease
CPT/HCPCS: 36415; 80048; 80053; 80061; 80076; 80307; 82390; 83690; 85027; 85652; 86663; 86704; 86709; 86803; 87340; 87529; 87635; 87799; 96374; 99285; 74177; 76700; 80329; 81003; 82140; 82248; 82728; 83540; 83550; 83605; 83735; 85025; 85610; 85730; 86038; 86140; 86255; 86592; 86644; 86695; 86696; 87497; 99217; 99219; 99226; 99284; G0378; J1644; J2270; J3490

== ENCOUNTER 2021-08-26 14:36 | Outpatient (CLI) | payer OTHER, SELFPAY ==
[2021-08-26 18:41] LABS: ALT 289 U/L (16-63); AST 35 U/L (15-37); Albumin 3.8 g/dL (3.4-5.0); Alkaline Phosphatase 121 U/L (46-116); Bilirubin, Direct 0.2 mg/dL (0.0-0.2); Bilirubin, Total 0.4 mg/dL (0.2-1.0); Total Protein 6.9 g/dL (6.4-8.2)
== END 2021-08-26 14:37 | disposition home or self-care (01) ==
LOC: LBO 14:37
PROVIDERS: PCP Registered Nurse; Visit Provider Internal Medicine
DX: K75.89 Other specified inflammatory liver diseases (principal)
CPT/HCPCS: 36415; 80076

== ENCOUNTER 2021-09-11 13:16 | Outpatient (CLI) | payer OTHER, SELFPAY ==
[2021-09-11 16:05] LABS: ALT 63 U/L (16-63); AST 25 U/L (15-37); Albumin 3.9 g/dL (3.4-5.0); Alkaline Phosphatase 91 U/L (46-116); Amylase 60 U/L (25-115); Bilirubin, Direct 0.1 mg/dL (0.0-0.2); Bilirubin, Total 0.3 mg/dL (0.2-1.0); Lipase 147 U/L (73-393); Total Protein 6.9 g/dL (6.4-8.2)
[2021-09-12 09:29] LABS: Hepatitis C Ab w Rflx HCV PCR Negative (Negative)
[2021-09-12 09:36] LABS: Hepatitis B Surface Ag Negative (Negative)
[2021-09-12 09:44] LABS: HBs Antibody, Quant <3.1 mIU/mL (See Note); Hepatitis B Surface Ab Negative (See Note)
[2021-09-12 10:42] LABS: Hep A Total Ab w Rflx IgM Positive (Negative)
[2021-09-12 11:57] LABS: Hep A Antibody IgM Negative (Negative)
== END 2021-09-11 13:17 | disposition home or self-care (01) ==
LOC: LBO 13:19
PROVIDERS: PCP Registered Nurse; Visit Provider Family Medicine
DX: K75.9 Inflammatory liver disease, unspecified (principal)
CPT/HCPCS: 36415; 80076; 83690; 86706; 86709; 86803; 87340; 82150

== ENCOUNTER 2021-11-01 03:56 | Outpatient (CLI) | payer OTHER, SELFPAY ==
[2021-11-01 13:32] LABS: Abs Immature Grans 0.01 10^3/uL (0.0-0.06); Absolute Basophil Count 0.05 10^3/uL (0.0-0.2); Absolute Monocyte Count 0.44 10^3/uL (0.1-0.8); Absolute Neutrophil Count 2.13 10^3/uL (1.2-6.7); Basophils % 1.3; Eosinophils % 5.4; HCT 43.3 % (40.0-50.0); HGB 14.5 g/dL (13.5-17.5); Immature Grans % 0.3; Lymphocytes % 24.1; MCH 30.3 pg (27.0-33.0); MCHC 33.5 % (32.0-36.0); MCV 90.4 fL (80-95); MPV 11.6 fL (8.0-11.0); Monocytes % 11.8; Neutrophils % 57.1; Nucleated RBC 0 %; Platelet Count 184 10^3/uL (130-400); RBC 4.79 10^6/uL (4.36-5.78); RDW 13.2 % (11.8-14.1); RDW-SD 44.3 fL; WBC 3.73 10^3/uL (4.4-10.8)
[2021-11-01 14:21] LABS: ALT 58 U/L (16-63); AST 28 U/L (15-37); Albumin 4.1 g/dL (3.4-5.0); Alkaline Phosphatase 81 U/L (46-116); Anion Gap 10.6 mmol/L (3-11); BUN 15 mg/dL (7-18); Bilirubin, Total 0.5 mg/dL (0.2-1.0); CO2 23.4 mmol/L (21.0-32.0); CREATININE 0.7 mg/dL (0.70-1.30); Calcium 8.9 mg/dL (8.5-10.1); Chloride 104 mmol/L (98-107); Glucose 99 mg/dL (74-106); Sodium 138 mmol/L (136-145); Total Protein 7.1 g/dL (6.4-8.2)
[2021-11-02 15:46] LABS: PSA, Ultrasensitive 0.55 ng/mL (<= 4.5)
[2021-11-04 23:06] LABS: Testosterone, Total 320 ng/dL (240-950)
== END 2021-11-01 03:57 | disposition home or self-care (01) ==
LOC: LBO 03:56
PROVIDERS: PCP Registered Nurse; Visit Provider Nurse Practitioner Family
DX: C61 Malignant neoplasm of prostate (principal)
CPT/HCPCS: 36415; 80053; 84153; 84403; 85025

== ENCOUNTER 2022-03-26 03:25 | Outpatient (CLI) | payer OTHER, SELFPAY ==
[2022-03-26 13:11] LABS: Abs Immature Grans 0.02 10^3/uL (0.0-0.06); Absolute Basophil Count 0.03 10^3/uL (0.0-0.2); Absolute Eosinophil Count 0.05 10^3/uL (0.0-0.7); Absolute Lymphocyte Count 0.88 10^3/uL (1.2-3.4); Absolute Monocyte Count 0.46 10^3/uL (0.1-0.8); Absolute Neutrophil Count 2.66 10^3/uL (1.2-6.7); Basophils % 0.7; Eosinophils % 1.2; HCT 44.9 % (40.0-50.0); HGB 15.2 g/dL (13.5-17.5); Immature Grans % 0.5; Lymphocytes % 21.5; MCH 30.6 pg (27.0-33.0); MCHC 33.9 % (32.0-36.0); MCV 91 fL (80-95); MPV 12.3 fL (8.0-11.0); Monocytes % 11.2; Neutrophils % 64.9; Platelet Count 182 10^3/uL (130-400); RBC 4.96 10^6/uL (4.36-5.78); RDW 13.6 % (11.8-14.1); RDW-SD 45.7 fL
[2022-03-26 13:38] LABS: ALT 52 U/L (16-63); AST 19 U/L (15-37); Albumin 3.9 g/dL (3.4-5.0); Alkaline Phosphatase 81 U/L (46-116); Anion Gap 8.1 mmol/L (3-11); BUN 21 mg/dL (7-18); Bilirubin, Total 0.4 mg/dL (0.2-1.0); CO2 25.9 mmol/L (21.0-32.0); Calcium 8.6 mg/dL (8.5-10.1); Chloride 106 mmol/L (98-107); Glucose 97 mg/dL (74-106); Sodium 140 mmol/L (136-145); Total Protein 7.2 g/dL (6.4-8.2)
[2022-03-28 09:50] LABS: PSA, Ultrasensitive 0.51 ng/mL (<= 4.5)
[2022-04-01 16:32] LABS: Testosterone, Total 332 ng/dL (240-950)
== END 2022-03-26 03:26 | disposition home or self-care (01) ==
LOC: LBO 03:25
PROVIDERS: PCP Registered Nurse; Visit Provider Nurse Practitioner Family
DX: C61 Malignant neoplasm of prostate (principal)
CPT/HCPCS: 36415; 80053; 84153; 84403; 85025

== ENCOUNTER 2022-04-22 13:49 | Outpatient (CLI) | payer OTHER, SELFPAY ==
[2022-04-22 14:06] LABS: Abs Immature Grans 0.01 10^3/uL (0.0-0.06); Absolute Basophil Count 0.04 10^3/uL (0.0-0.2); Absolute Eosinophil Count 0.06 10^3/uL (0.0-0.7); Absolute Lymphocyte Count 1.02 10^3/uL (1.2-3.4); Absolute Monocyte Count 0.51 10^3/uL (0.1-0.8); Absolute Neutrophil Count 3.23 10^3/uL (1.2-6.7); Basophils % 0.8; Eosinophils % 1.2; HCT 43.8 % (40.0-50.0); Immature Grans % 0.2; Lymphocytes % 20.9; MCH 30.8 pg (27.0-33.0); MCHC 34.2 % (32.0-36.0); MCV 90 fL (80-95); MPV 11.7 fL (8.0-11.0); Monocytes % 10.5; Neutrophils % 66.4; Platelet Count 201 10^3/uL (130-400); RBC 4.87 10^6/uL (4.36-5.78); RDW 13.2 % (11.8-14.1); RDW-SD 43.4 fL; WBC 4.87 10^3/uL (4.4-10.8)
[2022-04-22 14:36] LABS: ALT 42 U/L (16-63); AST 23 U/L (15-37); Albumin 3.8 g/dL (3.4-5.0); Alkaline Phosphatase 75 U/L (46-116); Anion Gap 9.3 mmol/L (3-11); BUN 17 mg/dL (7-18); Bilirubin, Total 0.3 mg/dL (0.2-1.0); CO2 26.7 mmol/L (21.0-32.0); CREATININE 0.9 mg/dL (0.70-1.30); Calcium 8.5 mg/dL (8.5-10.1); Calculated LDL 102 mg/dL (<100); Chloride 103 mmol/L (98-107); Cholesterol 178 mg/dL (<200); Glucose 93 mg/dL (74-106); HDL Cholesterol 62 mg/dL (40-60); Potassium 3.7 mmol/L (3.5-5.1); Sodium 139 mmol/L (136-145); Total Protein 7.3 g/dL (6.4-8.2); Triglyceride 74 mg/dL (<150)
[2022-04-22 14:46] LABS: Uric Acid 5.8 mg/dL (3.5-7.2)
== END 2022-04-22 13:50 | disposition home or self-care (01) ==
LOC: LBO 13:49
PROVIDERS: PCP Registered Nurse; Visit Provider Family Medicine
DX: I10 Essential (primary) hypertension (principal); R10.31 Right lower quadrant pain; M79.671 Pain in right foot
CPT/HCPCS: 36415; 80053; 80061; 84550; 85025

== ENCOUNTER → 2022-05-06 02:07 | Outpatient (CLI) | payer OTHER, SELFPAY ==
--- NOTE | 2022-05-06 | DI.RAD_ITS ---
Exam(s) XR FOOT RT COMPLETE EXAM: XR FOOT RT COMPLETE CLINICAL HISTORY: RT FOOT PAIN, M79.671 TECHNIQUE: COMPARISON: No exams were available for comparison FINDINGS: Three views were obtained. There are mild montes articular degenerative changes of joints of the foot. No other significant abnormality seen. IMPRESSION: RADIATION DOSE DELIVERED: Total DLP
--- NOTE | 2022-05-06 | DI.CT_ITS ---
Exam(s) CT ABDOMEN PELVIS W EXAM: CT ABDOMEN PELVIS W CLINICAL HISTORY: RLQ PAIN, R10.31 TECHNIQUE: COMPARISON: CT CT ABDOMEN PELVIS W from 08/20/2021 FINDINGS: CT examination of the abdomen and pelvis was performed with bolus infusion of 100 cc of Omnipaque 350 with biphasic imaging of the upper abdomen. Images obtained through the lung bases are unremarkable. The liver is of decreased attenuation consistent with hepatic steatosis with no evidence of a focal m ass. Spleen is unremarkable in appearance.. Gallbladder and bile ducts are unremarkable. Pancreas is unremarkable in appearance. Adrenals appear normal bilaterally. Kidneys appear normal with no evidence of renal mass, hydronephrosis, or nephrolithiasis. Incidental small bilateral parapelvic cysts again noted, unchanged from August 2021. I noted that there was like abscess with thanks unremarkable bladder. There is no evidence of abdominal or pelvic adenopathy. Abdominal aorta is of normal diameter and no abnormality is seen involving major visceral branches.. Appendix is normal. No evidence diverticulitis or bowel obstruction. No significant abdominal wall hernia seen. There are bilateral hip replacements in position which cause significant pelvic artifact. There is e vidence of prostatic radiotherapy seeds in position. There is increased thickness of the wall of the rectosigmoid and also of the urinary bladder wall, these findings may represent sequelae of prior ra diation therapy. No focal mass identified. Impression: No evidence of acute intra-abdominal process. Presumed post radiation changes of urinary bladder rec tosigmoid. RADIATION DOSE DELIVERED: 1,454.52mGy.cm Total DLP 1,454.52mGy.cm Total DLP !Error CTDIvol DATA REPOSITORY: All CT scans at this facility are submitted to the National Radiology Data Registry (NRDR) Dose Index Registry (DIR) with the [employer] (ACR). RADIATION OPTIMIZATION: All CT scans at this facility use at least one of these dose optimization te chniques: automated exposure control; mA and/or kV adjustment per patient size (includes targeted exa ms where dose is matched to clinical indication); or iterative reconstruction.
[2022-05-06] MEDS: Barium Sulfate 2% W/V-Creamy Vanilla Smoothie 450 ML BTL PO ×2 (09:31→09:32)
[2022-05-06] MEDS: Omnipaque 350 MG/ML 100 ML BTL IV (09:31)
== END ==
PROVIDERS: PCP Registered Nurse; Visit Provider Family Medicine
DX: M19.071 Primary osteoarthritis, right ankle and foot (principal)
CPT/HCPCS: 73630; 74177; J3490

== ENCOUNTER 2022-07-01 13:14 | Outpatient (CLI) | payer OTHER, SELFPAY ==
[2022-07-01 12:04] LABS: Abs Immature Grans 0.01 10^3/uL (0.0-0.06); Absolute Basophil Count 0.04 10^3/uL (0.0-0.2); Absolute Eosinophil Count 0.05 10^3/uL (0.0-0.7); Absolute Monocyte Count 0.35 10^3/uL (0.1-0.8); Absolute Neutrophil Count 3.21 10^3/uL (1.2-6.7); Basophils % 0.8; Eosinophils % 1.1; HCT 44.7 % (40.0-50.0); Immature Grans % 0.2; Lymphocytes % 23.1; MCH 30.2 pg (27.0-33.0); MCHC 33.6 % (32.0-36.0); MCV 90 fL (80-95); MPV 11.3 fL (8.0-11.0); Monocytes % 7.4; Neutrophils % 67.4; Platelet Count 200 10^3/uL (130-400); RBC 4.96 10^6/uL (4.36-5.78); RDW 13.2 % (11.8-14.1); RDW-SD 43.5 fL; WBC 4.76 10^3/uL (4.4-10.8)
[2022-07-01 12:38] LABS: ALT 41 U/L (16-63); AST 23 U/L (15-37); Alkaline Phosphatase 78 U/L (46-116); Anion Gap 7.6 mmol/L (3-11); BUN 22 mg/dL (7-18); Bilirubin, Total 0.5 mg/dL (0.2-1.0); CO2 29.4 mmol/L (21.0-32.0); CREATININE 0.9 mg/dL (0.70-1.30); Calcium 9.1 mg/dL (8.5-10.1); Chloride 105 mmol/L (98-107); Estimated GFR 93.61 (mL/min/1.73m2); Glucose 115 mg/dL (74-106); Potassium 3.7 mmol/L (3.5-5.1); Sodium 142 mmol/L (136-145); Total Protein 7.5 g/dL (6.4-8.2)
--- OUTSIDE RECORDS SUMMARY | 2022-07-01 13:44 | XMS_ITS | CCD ---
:1955 Author Care Team Providers Name Role Phone CASSIUS VALE Attending Physician Unavailable Vital Signs Unknown or Not Available. Allergies Allergy Code Allergy Type Reaction Status NKA - NO KNOWN ALLERGIES 0 Drug allergy Act piero Procedures Unknown or Not Available. History of Immunizations Unknown or Not Available. Problems Unknown or Not Available. Results URINALYSIS WITH MICRO AND REFLEX CULTUR* - Collect Date/Time: 04/25/2022 15:20 Test Name Code Test Result Test Units Test Ref Range COLLECTION MODE: 71551-9 CLEAN CATCH N/A Color 5778-6 YELLOW N/A yellow Appearance 5767-9 CLEAR N/A clear Glucose urine 70752-4 NEGATIVE N/A negative mg/dl Bilirubin 5770-3 NEGATIVE N/A negative Ketones 2514-8 NEGATIVE N/A negative mg/dl Spec gravity 5811-5 >=1.030 N/A 1.003 - 1.030 pH urine 2756-5 5.5 N/A 5.0 - 7.0 Protein 20877-3 TRACE N/A negative mg/dl Urobilinogen 85416-5 0.2 N/A <or= 1 EU/dl Nitrite. 5802-4 NEGATIVE N/A negative Blood 5794-3 NEGATIVE N/A negative Leukocytes. NEGATIVE N/A negative WBCs. none N/A 0-5 / hpf RBCs none N/A 0-5 / hpf Epith cells none N/A 0-5 / hpf Crystals none N/A none Bacteria none N/A none Mucus 8247-9 present N/A none Casts none N/A none /lpf Active Medications Unknown or Not Available. Medications Administered During Visit Unknown or Not Available. Encounters Unknown or Not Available. Social History Smoking Status Code Start Date End Date Never smoker [id number] Patient Decision Aids Unknown or Not Available. Discharge Instructions You were admitted to [facility] on 04/25/2022 15:10 You had the following tests done: URINA LYSIS WITH MICRO AND REFLEX CULTUR* You were discharged from [facility] on 04/25/2022 15:10 Should you have any questions prior to d ischarge, please contact a member of your healthcare team. If you have left the ho spital and have any questions, please contact your primary care physician. Chief Complaint and Reason For Visit Unknown or Not Available. Function Status Unknown or Not Available. Plan of Care Unknown or Not Available. Referral/Transition of Care Unknown or Not Available.
--- OUTSIDE RECORDS SUMMARY | 2022-07-01 13:45 | XMS_ITS | Encounter Summary ---
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 prepared as per rat trapper's recommendations. Hydrodissection ofconnective tissue stroma between prostate and rectum was successfully accomplished under ultrasound visualization. The SpaceOAR hydrogel was then introduced into the prostate/rectal interface under ultrasound visualization. Post-procedure, the hydrogel appeared well-distributed along the posterior surface of the prostate gland. There was no evidence of introduction of hydrogel into the rectal lumen or of rectal perforation. ?? Thereafter, Dr. Ruelas performed cystoscopy, as detailed in that note. One strand of two seeds and one excess seed were identified extending into the lumen of the bladder to the left of the urethra. These were removed, yielding a net of 62 implanted seeds. Following cystoscopy, the patient was awakened and taken to the recovery area. ?? In total, the implant utilized 65 Cs-131 seeds (of which 3 were subsequently removed, yielding 62 net implanted). An additional 10 loose seeds were used for dose calibration. Also, 8 seeds were available but not implanted. In short, a total of 83 Cs-131 seeds were employed in this procedure. ? Infection Bundle used? No documented in this encounter Plan of Treatment Upcoming Encounters Date Type Specialty Care Team Description 07/08/2022 Office Visit Radiation Oncology Shelley Kimble APRN [facility] [place], [place] [address] (Wo rk) documented as of this encounter Procedures Procedure Name Priority Date/Time Associated Diagnosis Comme nts XR FLUORO NO RAD Routine 05/06/2021 11:59 AM Resu lts for this <1HR - OR USE EDT procedure are in the results section. CYSTO, REMOVAL OF Yes 05/06/2021 7:44 AM Prostate CA STENT, FOREIGN BODY EDT OR CALCULUS, SIMPLE (WRVU 2.81) PROSTATE SEED Yes 05/06/2021 7:44 AM Prostate CA IMPLANT PROCEDURE EDT (WRVU 13.46) documented in this encounter Results XR Fluoro No Rad <1Hr - OR Use (05/06/2021 11:59 AM EDT) Specimen (Source) Anatomical Location Collection Method / Collectio n Time Received Time / Laterality Volume Narrative RAD - 05/06/2021 11:59 AM EDT This exam is auto-finalizing. No interpr etation was done. Og Flynn MD IMG FLUORO ORDERABLES Performing Organization Address City/State/ZIP Code Phon e Number RAD [place], [place] documented in this encounter Visit Diagnoses Diagnosis Prostate CA Malignant neoplasm of prostate documented in this encounter Administered Medications Inactive Administered Medications - up to 3 most recent administrations Medication Order MAR Action Action Date Dose Rate Site acetaminophen (Tylenol) tablet Given 05/06/2021 7:14 AM EDT 1,00 0 mg 1,000 mg 1,000 mg, Oral, ONCE, 1 dose, On Thu05/06/21 at 0700, Maximum dose of acetaminophen is 4000 mg from all sources in 24 hours. When ordered for pain, acetaminophen should be given even when other ordered pain medications are indicated. , Routine iohexoL (Omnipaque) (300 mg/mL) injection Given 05/06/2021 8:59 AM EDT 4 mLs solution ONCE PRN, Starting on Thu05/06/21 at 0859, Until Thu05/06/21 at 1709, Intra-Operative (Intra-Procedure), Routine documented in this encounter Active and Recently Administered Medications Times are shown in EDT. Scheduled Medication Order 05/04/2021 05/05/2021 05/06/2021 acetaminophen (Tylenol) tablet 1,000 mg (COMPLETED) 0714 (Given - Provider: Catherine Guevara RN) 1,000 mg, Oral, ONCE, 1 dose, On 04/15 at 0700, Maximum dose of acetaminophen is 4000 mg from all sources in 24 hours. When ordered for pain, acetaminophen should be given even when other ordered pain medications are indicated. , Routine levoFLOXacin (Levaquin) 750 mg in dextrose 5% 150 mL infusion (C ANCELED) 0715 (Due)0759 (Given - Provider: Maldonado Romo CRNA) 750 mg, Intravenous, at 100 mL/hr, EVERY 24 HOURS, First dose on Thu05/06/21 at 0715, Until Discontinued, Day of Surgery (Day of Procedure), Routine PRN Medication Order 05/04/2021 05/05/2021 05/06/2021 iohexoL (Omnipaque) (300 mg/mL) injection solution (CANCELED) 0859 (Given - Provider: Og Flynn MD - Comment: mixed with 4ml saline, injected into lloyd balloon) ONCE PRN, Starting on Thu05/06/21 at 085 9, Until Thu05/06/21 at 1709, Intra- Operative (Intra-Procedure), Routine documented in this encounter Care Teams Women'S Garment Fitter Relationship Specialty Start Date End Date Grover Herman MD PCP - General Family Medicine 07/19/20 [address] [place] [address] documented as of this encounter
--- OUTSIDE RECORDS SUMMARY | 2022-07-01 13:45 | XMS_ITS | Encounter Summary ---
:1955 Author Organization [facility] [place] [address] Care Team Providers Name Role Phone Grover Herman MD Primary Care Provider Reason for Visit Reason Comments Injections Lupron High Dollar Medication (Routine) - Specialty Diagnoses / Procedures Referred By Contact Refer red To Contact Hematology and Oncology Diagnoses Malignant neoplasm of prostate Sherman Davis MD [facility] Infusion Procedures TC LEUPROLIDE ACETATE 7.5MG, FOR DEPOST SUSPENSION (LUPRON DEPOT) INFUSION ROOM [address] [place] [address] [place] [id number] Referral ID Status Reason Start Date Expiration Date Visits V isits Requested Authorized [id number] 10/05/2020 09/17/2021 99 99 Encounter Details Date Type Department Care Team Description 06/21/2021 [facility] prostate [address] [place] [address] [phone] Social History Tobacco Use Types Packs/Day Years [...] Sign Reading Time Taken Comments Blood Pressure 149/97 06/21/2021 9:12 AM EDT Pulse 67 06/21/2021 9:12 AM EDT Temperature 36.4 ??C (97.5 ??F) 06/21/2021 9:12 AM EDT Respiratory Rate 18 06/21/2021 9:12 AM EDT Oxygen Saturation 98% 06/21/2021 9:12 AM EDT Inhaled Oxygen Concentration - - Weight - - Height - - Body Mass Index - - documented in this encounter Progress Notes Jose Maria Lara RN - 06/21/2021 9:00 AM EDT Infusion Note Diagnosis: Prostate Cancer Treatment: Lupron Injection Lupron 7.5 mg injected IM in right buttocks. Assessment: Patient instructed on side effects of Lupron. Patient states understanding of teaching and patient aware to call clinic with any questions or concerns. Plan: Return to clinic as scheduled. documented in this encounter Plan of Treatment Upcoming Encounters Date Type Specialty Care Team Description 07/08/2022 Office Visit Radiation Oncology Shelley Kimble APRN [facility] [place] [address] (Wo rk) documented as of this encounter Visit Diagnoses Diagnosis Malignant neoplasm of prostate documented in this encounter Administered Medications Inactive Administered Medications - up to 3 most recent administrations Medication Order MAR Action Action Date Dose Rate Site leuprolide (Lupron Depot) Given 06/21/2021 9:17 AM EDT 7.5 mg Right Gluteal injection 7.5 mg 7.5 mg, Intramuscular, ONCE, 1 dose, On Thu06/21/21 at 0915, Routine, This agent is restricted to outpatient use. Is this drug being given as an outpatient? Yes documented in this encounter Care Teams Underwear Trimmer Relationship Specialty Start Date End Date Grover Herman MD PCP - General Family Medicine 07/19/20 [address] [place] [address] documented as of this encounter
--- OUTSIDE RECORDS SUMMARY | 2022-07-01 13:45 | XMS_ITS | Encounter Summary ---
:1955 Author Organization [facility] [place] [address] Care Team Providers Name Role Phone Grover Herman MD Primary Care Provider Reason for Visit Reason Comments Injections Lupron High Dollar Medication (Routine) - Specialty Diagnoses / Procedures Referred By Contact Refer red To Contact Hematology and Oncology Diagnoses Malignant neoplasm of prostate Sherman Davis MD [facility] Infusion Procedures TC LEUPROLIDE ACETATE 7.5MG, FOR DEPOST SUSPENSION (LUPRON DEPOT) INFUSION ROOM [address] [place] [address] [place] [id number] Referral ID Status Reason Start Date Expiration Date Visits V isits Requested Authorized [id number] 10/05/2020 09/17/2021 99 99 Encounter Details Date Type Department Care Team Description 07/19/2021 [facility] prostate [address] [place] [address] [phone] Social History Tobacco Use Types [...] Sign Reading Time Taken Comments Blood Pressure 152/88 07/19/2021 11:21 AM EDT Pulse 69 07/19/2021 11:21 AM EDT Temperature 36.2 ??C (97.1 ??F) 07/19/2021 11:21 AM EDT Respiratory Rate 16 07/19/2021 11:21 AM EDT Oxygen Saturation 99% 07/19/2021 11:21 AM EDT Inhaled Oxygen Concentration - - Weight - - Height - - Body Mass Index - - documented in this encounter Progress Notes Jose Maria Lara RN - 07/19/2021 11:30 AM EDT Infusion Note Diagnosis: Prostate Cancer Treatment: Lupron Injection Lupron 7.5 mg injected IM in left buttocks. Assessment: Patient instructed on side effects of Lupron. Patient states understanding of teaching and patient aware to call clinic with any questions or concerns. Plan: Return to clinic as scheduled. documented in this encounter Plan of Treatment Upcoming Encounters Date Type Specialty Care Team Description 07/08/2022 Office Visit Radiation Oncology Shelley Kimble APRN [facility] [place], [place] [address] (Wo rk) documented as of this encounter Visit Diagnoses Diagnosis Malignant neoplasm of prostate documented in this encounter Administered Medications Inactive Administered Medications - up to 3 most recent administrations Medication Order MAR Action Action Date Dose Rate Site leuprolide (Lupron Depot) Given 07/19/2021 11:26 AM 7.5 mg Left Gluteal injection 7.5 mg EDT 7.5 mg, Intramuscular, ONCE, 1 dose, On Thu07/19/21 at 1130, Routine, This agent is restricted to outpatient use. Is this drug being given as an outpatient? Yes documented in this encounter Care Teams Studio Manager Relationship Specialty Start Date End Date Grover Herman MD PCP - General Family Medicine 07/19/20 [address] [place] [address] documented as of this encounter
--- OUTSIDE RECORDS SUMMARY | 2022-07-01 13:45 | XMS_ITS | Encounter Summary ---
:1955 Author Organization [facility] [place] [address] Care Team Providers Name Role Phone Grover Herman MD Primary Care Provider Encounter Details Date Type Department Care Team Description 04/03/2022 Office Visit Radiation Oncology at Shelley Kimble Ma lignant neoplasm of [facility] WRAPPER SELECTOR prostate (Primary Dx) [address] [place] [address] RADIATION ONCOLOGY [phone] [place] [id number] Social History Tobacco Use Types Packs/Day Years [...] Sign Reading Time Taken Comments Blood Pressure 151/81 04/03/2022 9:18 AM EDT Pulse 60 04/03/2022 9:18 AM EDT Temperature 36.6 ??C (97.9 ??F) 04/03/2022 9:18 AM EDT Respiratory Rate 18 04/03/2022 9:18 AM EDT Oxygen Saturation 98% 04/03/2022 9:18 AM EDT Inhaled Oxygen Concentration - - Weight 100.4 kg (221 lb 6.4 oz) 04/03/2022 9:18 AM EDT Height 177.5 cm (5' 9.88) 04/03/2022 9:18 AM EDT Body Mass Index 31.87 04/03/2022 9:18 AM EDT documented in this encounter Progress Notes Samantha Kimbleah Terry, WRAPPER SELECTOR - 04/03/2022 9:30 AM EDTSummary: 66 year old M unfavorable intermediate-risk prostate ca s/p brachy seed and EBRT with 11 months lupron from Sep 2020 thru Jul. [facility] RADIATION ONCOLOGY [place] [phone] Phone: RADIATION ONCOLOGY FOLLOW UP NOTE Date of visit: 03/27/2022 Patient Dominick Castro 1955 PCP: Grover Herman MD Urologist: Radiation oncologist: Dr. Og Flynn and Dr Sherman Moore Chief Complaint: follow up/labs for prostate cancer Time since completed RT:08/02/21 LIVER ENZYME ELEVATION 08/19/2021 HELD LUPRON LUPRON IS NOT GOING TO BE CONTINUED. ENZYMES WERE ELEVATED UP UNTIL LAST WEEK September 20, When DONE BY PCP. Will recheck in one month (Oct) Current treatment: STOPPING ADT due to elev liver enzymes (he is just shy of intended 12 month) HPI: Per Dr Flynn notes on treatment. Dominick Castro??is a 65 y.o.??gentleman with unfavorable intermediate-risk prostate cancer (cT2b, Gl4+3, PSA 11).??Clinical stage IIC.?Staging mpMRI 09/27/20 showed a 57 cc gland with PI-RADs 5 lesion in right PZ with curvilinear contact along gland edge. No clear ELIO. ? RADIATION PLAN: Curative. Planned combination Cs-131 seed implant (prostate boost) and EBRT (larger field pelvic treatment), along with a total of one year of ADT. ?? Lupron started?01/14/21.?Stopped Lupron in Aug 2021 due to liver enzyme elevation and liver pain. Implant was performed under care of Dr. Flynn at [facility]. EBRT portion of therapy was delivered under care of Dr. Moore in [facility]. ? DETAILS OF RADIOTHERAPY: 1. Target Volume: Cs-131 implant -- Prostate only [id number] -- Prostate, SVs, and nodes 2. Total Dose: 95010 cGy Cs-131 implant -- 8500 cGy [id number] -- 4500 cGy in 25 fractions ?? 3. Fractional Dose: Cs-131 implant -- 8500 cGy (single administration) [id number] -- 180 cGy ?? 4. Treatment Technique: Cs-131 implant -- LDR seed brachy implant [id number] -- IMRT/IGRT/VMAT ?? 5. Energy: Cs-131 implant -- Cs-131 [id number] -- 10 MV photons ?? 6. Dates of Therapy: Cs-131 implant -- 05/06/21 [id number] -- 07/01/21 thru 08/02/21 ?? 7. Treatment Interruptions: None ?? 8. Total Treatment Time: From implant through end of EBRT: 88 days EBRT portion only: 32 days ? TREATMENT TOLERANCE AND OUTCOME: Mr. Castro tolerated these intensive treatments very well overall. ?? Following the implant, he developed increased nocturia (4-5 times nightly), but this had improved with a month after the procedure, well-managed with two capsules Flomax nightly. Bowel movements remained well-formed, though somewhat increased in frequency (4-6 times daily). ?? During the course of his EBRT he developed worsening urinary force of stream, only partially alleviated with Flomax, Aleve, and (eventually) a short course of dexamethasone. He declined intermittent self-catheterization. ? Pt had cholecystectomy in December 2020 here at [facility]. Liver enzyme observed very elevated in Aug, hospitalized and then since discharge has been decreasing since that point with cessation of the Lupron. Mr Castro had been receiving monthly lupron injections from January 2021 to present. The goal was one year of Lupron therapy in conjunction with his brachy and EBRT. In Aug he presented for Lupron and depending on lab normalcy he was to get a 3 month injection of Lupron. However, AST 458 ALT 750 . He had no jaundice, mild intermittent nausea and a mild diffuse tenderness across abdomen is present. LUPRON HELD. Mr Castro had cholecystectomy in December with recovery as expected. He notes that once previously he has experienced a liver enzyme elevation while getting monthly lupron but has been WNL since and until this point. He does have a hx of hepatitis when he was a teen. His father and he had Hep at same time and they assumed from [employer] water they had both drank from. He uses oxycodone/acetaminophen sparingly for shoulder arthritis. Half tab at a time, no ETOH use, minimal medications. He will hold tylenol products. Interval period: He had to go to ED and was admitted with severe enzyme elevation after the last visit. He is followed closely by PCP and reports his enzymes just this last week in September returned to WNL. He is feeling well now and recovered. He still sometimes gets diffuse abdom twinges as he has gluten and lactose intol and these are in everything. He feels quite good at this time and quite recovered form the liver enzyme elevation. 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 Medications 11/15/21 8435 Medication Sig Taking? tamsulosin (Flomax) 0.4 mg Capsule Take 1-2 capsules by mouth nightly. Per procedure calendar Patient taking differently: Take 0.8 mg by mouth nightly. 2 capsules once a day oxyCODONE-acetaminophen (Percocet) 5-325 mg Tablet 1 tablet every 4 hours as needed (hip and shoulder pain ( sometimes takes only 1/2 tab)). Allergies Allergen Reactions ??? Gluten Protein celiac ??? Lactose intolerance Past Medical History: Diagnosis Date ??? Chronic pain right shoulder and bilat hips ??? Chronic, continuous use of opioids ??? Hepatitis as teenager turned yellow never worked up ??? History of total right hip arthroplasty 06/26/2020 ??? Liver disease hepatitis at age 14 ??? Malignant neoplasm of prostate 09/25/2020 ??? Obesity ??? Post-operative nausea and vomiting ??? Prostate cancer Past Surgical History: Procedure Laterality Date ??? CHOLECYSTECTOMY ??? COLONOSCOPY 2005 and 2018 ??? JOINT REPLACEMENT hipss ??? PRO CYSTOSCOPY, REMV CALCULUS, SIMPLE N/A 05/06/2021 CYSTO, REMOVAL OF STENT, FOREIGN BODY OR CALCULUS, SIMPLE (WRVU 2.81) performed by Beronica Calixto MD at [facility] MAIN OR ??? PRO LAP, CHOLECYSTECTOMY/GRAPH N/A 01/07/2021 LAPAROSCOPIC CHOLECYSTECTOMY WITH CHOLANGIOGRAM (WRVU 11.47) performed by Ramy Porter MD [facility] MAIN OR ??? PRO PERCUT/NEEDLE INSERT, PROSTATE, RADIOISOT N/A 05/06/2021 PROSTATE SEED IMPLANT PROCEDURE (WRVU 13.46) performed by Og Flynn MD at [facility] MAIN OR ??? PRO REVISE TOTAL HIP REPLACEMENT Left 01/12/2020 @TOTAL HIP REVISION ARTHROPLASTY, COMPLETE (WRVU 30.28) performed by Jack Lewis MD at [facility] MAIN OR ??? PRO REVISE TOTAL HIP REPLACEMENT Right 07/26/2020 @TOTAL HIP REVISION ARTHROPLASTY, COMPLETE (WRVU 30.28) performed by Jack Lewis MD at [facility] OR ??? PROSTATE BIOPSY 07/17/21 at [facility] Family History Problem Relation Age of Onset ??? Leukemia Father ? related to chemical exposure while in ??? Breast Cancer Sister ??? Deep Vein Thrombosis Neg Hx ??? Thrombosis Neg Hx ??? Diabetes Neg Hx Social History Tobacco Use ??? Smoking status: Never Smoker ??? Smokeless tobacco: Never Used Vaping Use ??? Vaping Use: Never used Substance Use Topics ??? Alcohol use: Not Currently Alcohol/week: 1.0 standard drink Types: 1 Standard drinks or equivalent per week Comment: Occasionally, 0-1 drinks a week ??? Drug use: No Review of Symptoms: I reviewed the IPSS/MATTIE/Epic-Cp survey results from today 04/03/2022 ??9:19 AM EDT - Filed by Patient Urinary function problem Small problem Urinary control Total control # of pads used per day None Urinary dripping/leakage problem No problem 5. How big a problem, if any, has each of the following been for you? Pain or burning with urination No problem Weak urine stream/incomplete bladder emptying Very small problem Need to urinate frequently Very small problem 6. How big a problem, if any, has each of the following been for you? Rectal pain or urgency of bowel movements Very small problem Increased frequency of your bowel movements Very small problem Overall problems with your bowel movements Very small problem Bloody stools No problem Ability to reach orgasm Fair Quality of your erections Firm enough for masturbation and foreplay Problem with sexual function or lack of it Very small problem 10. How big a problem, if any, has each of the following been for you? Hot flashes or breast tenderness/enlargement No problem Feeling depressed No problem Lack of energy No problem Urinary Incontinence Symptom Score (range: 0 - 12) 0 Urinary Irritation/Obstructive Symptom Score (range: 0 - 12) 2 Bowel Symptom Score (range: 0 - 16) 3 Vitality/Hormonal Symptom Score (range: 0 - 12) 0 Overall Prostate Cancer QOL Score (range: 0 - 60) 5 Q - Prostate Followup Survey Question 04/03/2022 ??9:26 AM EDT - Filed by Patient Reason for visit Follow up on existing problem(s) Incomplete emptying Not at all Frequency Less than 1 time in 5 Intermittency Less than 1 time in 5 Urgency Not at all Weak Stream Less than 1 time in 5 Straining Less than 1 time in 5 Nocturia 1 time Quality of life Mostly satisfied Total IPSS Score (range: 0 - 35) 5 ( Mild LUTS) Confidence, level - past 6 months Moderate Penetration - past 6 months No sexual activity Penetration, maintain - past 6 months Did not attempt intercourse Erection, maintain - past 6 months Did not attempt intercourse Sexual satisfaction - past 6 months Did not attempt intercourse Sexual Health in Men (range: 1 - 21) 3 (Severe ED) Patient concerns for today's visit: General: R supraclavicular mole removed by Derm Dec ([facility]) Jul or Aug, healed well, no other moles but will continue to follow w/ derm in [place], and procedure in [facility] Fatigue:feels back to baseline now Weight/appetite/diet, no n/v/d/c, no bleeding in stool Respiratory:no sx or illness/ he does have deviated septum and chronic PND. GI: no blood in stool. Had cholecystectomy in December. Has celiac and lactose intol so sometimes he will have mild diffuse discomfort but nothing like when liver enzymes elevated. :no hematuria, LUTs getting better slowly 2x at noc to urinate. Endocrine:no hot flashes at this time. Sexual health:not attempting sex. Does not have drive. had hysterectomy. Both partners okay with this situation. Muscle skeletal:Has chronic shoulder pain, rotator cuff injury and is choosing not to get surgery right now. Bone health: r shoulder pain, rotator cuff injury but no surg planned right now. Neuro:no sx Mood:doing okay Sleep:no urination through noc. Still using flow max. He had stopped flow max for awhile but just restarted recently. When he sits the flow is not as good. Standing is better Function:doing much better and feels recovered. 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 not discussed today Financial/transportation concerns:none at this time Performance Status: KPS Score ECOG Grade Definition x 90-100 0 Fully active, able to carry on all pre-disease performance without restriction 70-80 1 Restricted in physically strenuous activity but ambulatory and able to carry out work of a light or sedentary nature, e.g., light house work, office work 50-60 2 Ambulatory and capable of all selfcare but unable to carry out any work activities; up and about more than 50% of waking hours 30-40 3 Capable of only limited selfcare; confined to bed or chair more than 50% of waking hours 10-20 4 Completely disabled; cannot carry on any selfcare; totally confined to bed or chair Physical Examination: Body mass index is 31.87 kg/m??. BP 151/81 (Patient Position: Sitting) Pulse 60 Temp 36.6 ??C (97.9 ??F) (Temporal) Resp 18 Ht 177.5 cm (5' 9.88) Wt 100.4 kg (221 lb 6.4 oz) Constitutional: seen in clinic HENT: normocephalic, anicteric, neck supple, no adenopathy Cardiovascular: Rate and Rhythm: Normal rate and regular rhythm. Pulmonary: Effort: Pulmonary effort is normal. Abdomen: Obese, no pain, mild diffuse discomfort c/w gluten intol and lactose issues. No diarrhea, no blood in stool, anicteric of skin and sclera. Genitourinary: Rectum: deferred. Musculoskeletal: Normal range of motion. General: No swelling or deformity. No spinal percussion tenderness No CVA tenderness Comments: Ambulates without assistance Skin: General: Skin is warm and dry. Anicteric of skin and sclera Neurological: General: No focal deficit present. Mental Status: alert and oriented to person, place, and time. Gait: Gait normal. Psychiatric: Mood and Affect: Mood normal. Behavior: Behavior normal. Thought Content: Thought content normal. Judgment: Judgment normal. New Labs Reviewed this visit: Date PSA Test Notes 03/26/22 0.51 332 08/19/21 0.28 04/25/21 4.98??High?? No results found for this or any previous visit (from the past 72 hour(s)). Labs and [place] live 03/26/2022 WBC 4.10 Hemoglobin 15.2 MCV 91 Blood count 182K CMP Sodium, potassium, chloride, anion gap all within normal limits BUN 21 Creatinine 1.0 EGFR over 60 Calcium 8.6 Bilirubin 0.4 AST, ALT, alkaline phosphatase all within normal limits Albumin 3.9 PSA 0.51 Total testosterone 332 Assessment: 66 y.o. presenting for follow up/ lab for prostate cancer. Test wnl and PSA has risen somewhat to 0.51. Found gluten free qatari muffins corn based and hamb buns that are gluten free. Mr Castro had been receiving monthly lupron injections from January 2021 Kyle. Goal was one year of Lupron therapy in conjunction with his brachy and EBRT. Due to severe liver enzyme elevation in Aug andtook until this point to correct, pt is no longer on Lupron. He received 11 months out of 12 which was goal. He is being followed closely by his pcp as well and has an appt in April to f/u. He has diaphramatic discomf hard to identify. He uses oxycodone/acetaminophen sparingly for shoulder arthritis. Half tab at a time, no ETOH use, minimal medications. He is up to urinate 0-1x noc. On one flow max now. No changes in urination, no hematuria, no blood in stool. Rare constipation not causing problems. Had uncle who in 1970s from [place] from [employer] and this is in his mind. Medical Decision Making/Recommendations/Plan: # prostate cancer: reviewed PSA results as above 0.28 . No concerning reported symptoms or physical examination findings today # effects of EBRT: Acute: 1. LUTS (lower urinary tract symptoms) 2. Bowel dysfunction 3. Sexual health/Erectile Dysfunction 4. Fatigue 5. Mood changes Late: We reviewed potential late effects of radiation that require medical evaluation including : 1. Changes in urinary flow/difficulty passing urine (scarring from radiation) 2. Blood in urine (may be infection, inflammation bladder wall (cystitis), formation of telangiectasia (small, thin blood vessels that are dilated or broken, near the surface of the bladder and may bleed) or bladder/genitourinary cancer 3. Blood in bowel movements (stools)- maybe from hemorrhoids, telangiectasia from radiation, colorectal cancer Symptoms that you should bring to the attention of your provider: Difficulty or changes in your urine flow Blood in your urine or stool # ADT:completed. 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 # follow up: Per NCCN guidelines, PSA and history/physical every 6-12 months X 5 years, then annually. Annual JOSE (unless PSA undetectable or prostatectomy). PSA may be checked more frequently depending on risk level or other patient specific factors. Next visit:3 month check with labs. He had some elevation and concern so recheck in 3 mos Labs: PSA, testosterone, CBC, CMP Dominick Castro had the opportunity to ask questions and I answered them to the best of my knowledge.Dominick Castro agreed to contact radiation oncology in between visits if he has any questions/concerns or new symptoms in regards to the radiation therapy/prostate cancer Shelley Kimble MSN, WRAPPER SELECTOR, TOOTH GRINDER-C Nurse Practitioner Radiation Oncology documented in this encounter Plan of Treatment Upcoming Encounters Date Type Specialty Care Team Description 07/08/2022 Office Visit Radiation Oncology Shelley Kimble, WRAPPER SELECTOR [facility] [place] [facility] (Wo rk) Scheduled Orders Name Type Priority Associated Diagnoses Order S chedule CBC (with Diff) Lab Routine Malignant neoplasm of Exp ected: 07/03/2022 prostate (Approximate), Expires: 2022 Comprehensive metabolic Lab Routine Malignant neoplas m of Expected: 07/03/2022 panel (non-fasting) prostate (Approxi mate), Expires: 2022 PSA (Ultrasensitive) Lab Routine Malignant neoplasm o f Expected: 07/04/2022 prostate (Approximate), Expires: 2022 Testosterone, total Lab Routine Malignant neoplasm of Expected: 07/03/2022 prostate (Approximate), Expires: 2022 documented as of this encounter Visit Diagnoses Diagnosis Malignant neoplasm of prostate - Primary documented in this encounter Care Teams 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
--- OUTSIDE RECORDS SUMMARY | 2022-07-01 13:45 | XMS_ITS | Encounter Summary ---
:1955 Author Organization [facility] [place] [address] Care Team Providers Name Role Phone Grover Herman MD Primary Care Provider Encounter Details Date Type Department Care Team Description 08/21/2021 Ancillary Procedure Radiology Library at Joe Herman MD [facility] [address] [place] [address] [facility] [phone] [place] [address] (Work) [phone] Social History Tobacco Use Types Packs/Day Years [...] on file documented as of this encounter Plan of Treatment Upcoming Encounters Date Type Specialty Care Team Description 07/08/2022 Office Visit Radiation Oncology Shelley Kimble, HUMAN GEOGRAPHY FACULTY MEMBER [facility] RADIATION ONCWARNER [place], [place] [address] (Wo rk) documented as of this encounter Procedures Procedure Name Priority Date/Time Associated Comments Diagnosis FILM LIBRARY STORAGE Routine 08/21/2021 10:08 AM Results for this ONLY ULTRASOUND EST procedure ar weston in STUDY the results section. documented in this encounter Results Film Library- Storage Only Ultrasound Study (08/21/2021 10:08 AM EST) Specimen (Source) Anatomical Location Collection Method / Collectio n Time Received Time / Laterality Volume Narrative RAD - 08/21/2021 10:08 AM EST This exam is auto-finalizing. It's purpo se is for storage only. Grover Herman MD IMG FILM LIBRARY ORDERABLES Performing Organization Address City/State/ZIP Code Phon e Number [place], [place] documented in this encounter Visit Diagnoses Not on filedocumented in this encounter Care Teams Director Nursing Service Relationship Specialty Start Date End Date Grover Herman MD PCP - General Family Medicine 07/19/20 [address] [place] [address] documented as of this encounter
--- OUTSIDE RECORDS SUMMARY | 2022-07-01 13:45 | XMS_ITS | Encounter Summary ---
:1955 Author Organization [facility] [place] [address] Care Team Providers Name Role Phone Grover Herman MD Primary Care Provider Encounter Details Date Type Department Care Team Description 09/20/2021 Orders Only Orthopaedics at [facility] Héctor Miles, History of total hip [facility], Matt bilateral ([place] [address] Dx) [phone] Social History Tobacco Use Types Packs/Day Years [...] 07/08/2022 Office Visit Radiation Oncology Shelley Kimble, [employer] ASSIST[employer] [facility] [place], [place] [address] (Wo rk) documented as of this encounter Results XR Pelvis and Hip 2 Views Bilateral (09/25/2021 2:08 PM EST) Anatomical Region Laterality Modality Pelvis, Hip Bilateral Digital Radiography Specimen (Source) Anatomical Location Collection Method / Collectio n Time Received Time / Laterality Volume Impressions 09/25/2021 2:58 PM EST 1. ??Revised bilateral total hip arthroplasties. 2. 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 3. ??Unchanged revised LEFT total hip ar throplasty Thank you for letting us participate in the care of this patient. ??If you are a health care provider and have any questi ons regarding this report, please contact the number below. ??For patients who have questions please contact the health primary care physician that requested your imaging first. ? Narrative 09/25/2021 2:58 PM EST EXAMINATION: XR PELVIS AND HIP 2 VIEWS BILATERAL CLINICAL HISTORY: s/p bilateral REGGIE Revi alexandrea TECHNIQUE: 5 views of the pelvis and hips AP pelvis and 2 views of each hip COMPARISON: Multiple examinations since December 2019. FINDINGS: Bilateral revised total hip arthroplasti es are present. RIGHT Alignment Gradual increased subsidence of the femo ral component is present when compared to September 19, 2020 accompanied by severa l increase periprosthetic radiolucency along the medial proximal femoral stem, with a maximal width of 12 mm. The small lateral cortical bone defect, related to prior osteotomy is unchanged. The normal acetabular component with sym metric location of the femoral head. Complication: No fracture. . The radiolu cency surrounding the femoral stem represents any combination of loosening and osteolysis. LEFT Alignment-unchanged alignment of prosthe sis Complications: No fracture or new radiol ucency. The endosteal scalloping of the femoral stem is unchanged since the pre- revision radiographs. Soft tissues: Newly placed radiation see ds projected over the prostate gland. Procedure Note Hess, Carmen Y, MD - 09/25/2021Formatt ing of this note might be different from the original. EXAMINATION: XR PELVIS AND HIP 2 VIEWS B ILATERAL CLINICAL HISTORY: s/p bilateral REGGIE Revi alexandrea TECHNIQUE: 5 views of the pelvis and hips AP pelvis and 2 views of each hip COMPARISON: Multiple examinations since December 2019. FINDINGS: Bilateral revised total hip arthroplasti es are present. RIGHT Alignment Gradual increased subsidence of the femo ral component is present when compared to September 19, 2020 accompanied by severa l increase periprosthetic radiolucency along the medial proximal femoral stem, with a maximal width of 12 mm. The small lateral cortical bone defect, related to prior osteotomy is unchanged. The normal acetabular component with sym metric location of the femoral head. Complication: No fracture. . The radiolu cency surrounding the femoral stem represents any combination of loosening and osteolysis. LEFT Alignment-unchanged alignment of prosthe sis Complications: No fracture or new radiol ucency. The endosteal scalloping of the femoral stem is unchanged since the pre- revision radiographs. Soft tissues: Newly placed radiation see ds projected over the prostate gland. IMPRESSION 1. Revised bilateral total hip arthropla sties. 2. Gradual increased subsidence of the R IGHT femoral stem with osteolysis and loosening. 3. Unchanged revised LEFT total hip arth roplasty Thank you for letting us participate in the care of this patient. If you are a health care provider and have any questi ons regarding this report, please contact the number below. For patients w ho have questions please contact the health primary care physician that requested your imaging first. Electronically signed by: Carmen Hess MD, [facility] ([phone]), at 09/25/2021 2:58 PM Audelia Nuno MD IMG DX ORDERABLES documented in this encounter Visit Diagnoses Diagnosis History of total hip arthroplasty, bilat eral - Primary History of total hip arthroplasty, bilat eral documented in this encounter Care Teams Slate Picker Relationship Specialty Start Date End Date Grover Herman MD PCP - General Family Medicine 07/19/20 [address] [place] [address] documented as of this encounter
--- OUTSIDE RECORDS SUMMARY | 2022-07-01 13:45 | XMS_ITS | Encounter Summary ---
:1955 Author Organization [facility] [place] [address] Care Team Providers Name Role Phone Grover Herman MD Primary Care Provider Reason for Visit Consultation (Routine) - Closed Specialty Diagnoses / Procedures Referred By Contact Refer red To Contact Gastroenterology Diagnoses elevated lfts Grover Herman MD [facility] 4l Procedures cons [address] [place] [address] [place] [address] Phone: Fax: Referral ID Status Reason Start Date Expiration Date Visits Requ ested Visits Authorized [id number] Closed 09/26/2021 09/26/2022 1 1 Encounter Details Date Type Department Care Team Description 11/15/2021 Office Visit Gastroenterology at [facility] Beronica Elizondo Elevated liver enzymes; [facility] Saida Sewell APRN YU (nonalcoholic steatohepatitis) [place] [address] [facility] [phone] [place] [address] Social History Tobacco Use Types Packs/Day Years [...] Sign Reading Time Taken Comments Blood Pressure 146/82 11/15/2021 10:32 AM EST Pulse 69 11/15/2021 10:32 AM EST Temperature - - Respiratory Rate - - Oxygen Saturation - - Inhaled Oxygen Concentration - - Weight 105.1 kg (231 lb 12.8 oz) 11/15/2021 10:32 AM EST Height 177.5 cm (5' 9.88) 11/15/2021 10:32 AM EST Body Mass Index 33.37 11/15/2021 10:32 AM EST documented in this encounter Progress Notes Beronica Elizondo APRN - 11/15/2021 10:30 AM EST Images from the original note were not included. HEPATOLOGY NEW PATIENT CONSULTATION Dominick Castro 1955 BOOTH USHER: BERONICA ELIZONDO APRN PCP: Grover Herman MD Requesting Provider: REASON FOR CONSULTATION Elevated liver enzymes HISTORY OF PRESENT ILLNESS Dominick Castro is a 65 y.o. year old male with history of celiac disease and prostate cancer who presents today for evaluation of elevated liver enzymes. He had an episode of elevated liver enzymes in August 2021 with ALT up to 1400. He has been followed by his PCP and his liver enzymes have come down around normal. He has been taking monthly Lupron injections starting January 2021. He states that the Lupron is always causing pain in his right upper quadrant. On 08/19/2021 he was scheduled to get his Lupron injection but had increased pain in his right upper quadrant and did not get the injection then. His liver enzymes were checked and were slightly elevated. On Thursday the pain was worse, he was unable to eat and he went to [facility] because of the pain. He was admitted, given morphine and his liver enzyme enzymes were more significantly elevated. He was given IV saline and monitored in his liver enzymes started coming down the next day. He had a complete work-up for causes of elevated liver tests which cameback negative. He had a CT scan which did not show any biliary pathology. He had cholecystectomy in December 2020. He denies any fevers or chills of the time. Other than the pain in his right upper quadrant, denies any other symptoms. He has celiac disease and has some pain in his upper abdomen which is present all the time since being diagnosed with celiac disease in 2018. Other than the slight pain in his upper abdomen, feels good. Feels the best he has felt since havingtreatment for prostate cancer. Moving urine and bowel movements. He believe he had Hepatitis A When he was a kid, believes it was from drinking water from a brook. Had Hepatitis A for 2 weeks. He was originally scheduled to take Lupron for a year but stopped after 11 months due to his elevated liver enzymes. His oncologists feel this is okay to not take his last dose of Lupron. He was told he had high blood pressure weight when he was in the hospital in August however he attributes some of his high blood pressure at that point due to his right upper quadrant pain. He was started on amlodipine but is not taking it regularly. Would like to monitor his blood pressure further before starting any medication for high blood pressure. Per hospital discharge summary: ROS: Constitutional: no fatigue, fever, chills, has gained 10 to 15 pounds over the past year Eye: no visual changes ENT: no URI symptoms Cardio: no chest pain, palpitations Resp: no cough, no SOB GI: Diffuse upper abdominal pain which he attributes to celiac disease no blood in stools, no nausea/vomitting : no dysuria Integumentary: no new rashes, no easy bruising Musculoskeletal: no new joint pains, swelling of ankles or legs Neuro: no new numbness, weakness in extremities PAST MEDICAL/SURGICAL HISTORY 1. Celiac disease 2. History of prostate cancer MEDICATIONS Outpatient Medications Marked as Taking for the 11/15/21 encounter (Office Visit) with Sarah Elizondo APRN Medication Sig Dispense Refill ??? tamsulosin (Flomax) 0.4 mg Capsule Take 1-2 capsules by mouth nightly. Per procedure calendar (Patient taking differently: Take 0.8 mg by mouth nightly. 2 capsules once a day) 90 tablet 3 ??? oxyCODONE-acetaminophen (Percocet) 5-325 mg Tablet 1 tablet every 4 hours as needed (hip and shoulder pain ( sometimes takes only 1/2 tab)). Percocet: 1-2.5 per day. NO supplements or vitamins. ALLERGIES Allergies Allergen Reactions ??? Gluten Protein celiac ??? Lactose intolerance SOCIAL HISTORY , retired. 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 Alcohol: doesn't drink regularly. May have a cocktail with his when they go out. Hasn't had anyalcohol for past 4-5 months. Cigarettes: None FAMILY HISTORY NO family hx of liver disease No diabetes. Younger brother has CAD PHYSICAL EXAM Vitals: 11/15/21 1032 BP: 146/82 BP Location (NBP): Right arm Patient Position: Sitting BP Cuff Sizes: Adult (25-34 cm) Pulse: 69 Weight: 105.1 kg (231 lb 12.8 oz) Height: 177.5 cm (5' 9.88) Body mass index is 33.37 kg/m??. Gen: Well appearing, no apparent distress. Skin: no spider angiomata, no palmar erythema, no jaundice. HEENT: Sclerae anicteric, pupils equal, round, react to light. Pharynx unremarkable. Neck is supple,no adenopathy, no thyromegaly. Chest is clear. Heart: Regular rate and rhythm. Normal S1, S2, no murmurs. Abdomen: Normal bowel sounds; soft, non distended. No obvious hepatosplenomegaly. No evidence of ascites Extremities: No edema. Neuro: alert and oriented x3, no asterixis or tremor. Lab Results Component Value Date WBC 3.1 (L) 08/19/2021 HGB 14.7 08/19/2021 HCT 42.9 08/19/2021 MCV 90.5 08/19/2021 PLATELET 194 08/19/2021 No results for input(s): INR in the last 168 hours. Chemistry Component Value Date/Time NA 142 08/19/2021 1453 K 3.9 08/19/2021 1453 CL 105 08/19/2021 1453 CO2 24 08/19/2021 1453 BUN 17 08/19/2021 1453 CREATININE 0.77 (L) 08/19/2021 1453 Component Value Date/Time CALCIUM 9.7 08/19/2021 1453 ALKPHOS 119 08/19/2021 1453 AST 458 (H) 08/19/2021 1453 ALT 750 (H) 08/19/2021 1453 BILITOT 0.7 08/19/2021 1453 Latest Reference Range & Units 12/27/20 16:42 04/25/21 12:34 08/19/21 14:53 Albumin 3.2 - 5.2 g/dL 4.5 4.4 4.4 Total Bilirubin 0.2 - 1.3 mg/dL 0.6 0.2 0.7 Alk Phos 40 - 130 unit/L 86 87 119 AST 0 - 39 unit/L 26 22 458 (H) ALT 0 - 55 unit/L 34 45 750 (H) (H): Data is abnormally high 09/11/21: 08/22/21: CT Abdomen w contrast 08/20/21: Fibroscan Results 11/15/21: Median kPa: 3.4 kPa Mean IQR: 18% (goal is <30 %) Number of valid measurements: 10 (at least 10 required) Number of invalid measurements: 0 Predicted fibrosis stage: F0 CAP (dB/m): 400 Estimated steatosis grade: 3/3 % hepatocytes affected: >66 % ASSESSMENT/PLAN Dominick Castro is a 65 y.o. male with history of celiac disease, prostate cancer who presents for evaluation of an episode of significantly elevated liver enzymes. He had a brief episode of elevated liver enzymes in August 2021 with his ALT rising to 1424, AST 793 and alk phos 140. His liver enzymescame down shortly after with only supportive treatment and IV saline. It is difficult to say what caused this elevation in his liver enzymes, although I suspect it may be a number of things overlapping. He appears to have some underlying fatty liver, as evidenced by his enlarged liver on his CT scan and his FibroScan today show significant steatosis. I would not expect this alone to cause this acute e levation in his liver enzymes but may make him more at risk for inflammation in the liver from othercauses. While there are not many reports of Lupron causing significantly elevated liver enzymes it is possible that this contributed to his elevated liver enzymes, especially given his report of right upper quadrant pain with each Lupron injection. He has completed his course of Lupron and does not need this medication currently. His liver enzymes were normal in April 2021 when he was taking Lupron injections. It is possible that he could have had an unidentified viral infection which was not caught on his blood work which also caused elevated liver enzymes. Celiac disease can also cause slightly elevated liver enzymes but I would also not expect this to cause this acute rise in his liver tests. Regardless, his enzymes appear to have normalized. His FibroScan today does not show any fibrosis although does show significant steatosis. I suspect this steatosis is due to nonalcoholic fatty liver disease (NAFLD). His blood pressure today is still slightly elevated and he will follow up with his primary care provider regarding this. I checked his cholesterol and Hemoglobin A1c, which are within normal limits, although I would recommend that these continue to be monitored by his PCP. WE discussed that treatment for NAFLD is based in lifestyle modification with weight loss being the mainstay of treatment. He is working on weight loss and hopes to lose 10-20 lbs over the next year. Plan: - blood work today- CMP, Lipid panel, HbA1c. Will send letter with results. - Continue to monitor blood work every 6 months. This can be done through his PCP office. If numbersbecome elevated, would refer back to hepatology. Beronica Elizondo APRN Section of Gastroenterology [place] [address] Copy: Grover Herman MD [address] / [facility] [id number] documented in this encounter Procedure Notes Beronica Elizondo APRN - 11/15/2021 10:30 AM ESTAssociated Order(s): FIBROSCAN Procedure(s): FIBROSCAN Pre-Procedure Diagnose(s): Elevated liver enzymes [facility] Liver Fibrosis Assessment Report Indication: Elevated liver enzymes Performed by: BERONICA ELIZONDO APRN Procedure: Vibration Controlled Transient Elastography (VCTE) or Fibroscan [place] Protocol: Patient's identity, procedure and site were verified, confirmatory pause performed. Discussed procedure including risks and potential complications. Questions answered. Patient verbalizes understanding and wishes to proceed with Fibroscan assessment. Patient was placed in the supine position with right arm in maximum abduction to allow optimal exposure of right lateral abdomen. Patient was briefly assessed. Testing was performed in the mid-axillarylocation. 50Hz Shear Wave pulses were applied and the resulting Shear Wave and Propagation Speed wasdetected with a 3.5MHz ultrasonic signal, using the Fibroscan probe. Skin to liver capsule distance and liver parenchyma were accessed during the entire examination with the Fibroscan probe. Patient was instructed to breathe normally and abstain from sudden movements during the procedure. At least tenSheer Waves were produced; individual measurements of each Shear Wave were calculated. Patient tolerated the procedure well with no complications. Fibroscan Results: Median kPa: 3.4 kPa Mean IQR: 18% (goal is <30 %) Number of valid measurements: 10 (at least 10 required) Number of invalid measurements: 0 Predicted fibrosis stage: F0 CAP (dB/m): 400 Estimated steatosis grade: 3/3 % hepatocytes affected: >66 % Interpretation: Based on this Fibroscan result, history, clinical examination and review of laboratory and radiological data, this patient likely has stage 0 liver fibrosis and grade 3 steatosis affecting over 66% of hepatocytes. documented in this encounter Plan of Treatment Upcoming Encounters Date Type Specialty Care Team Description 07/08/2022 Office Visit Radiation Oncology Shelley Kimble APRN [facility] RADIATION ONC[place], [place] [address] (Wo rk) documented as of this encounter Procedures Procedure Name Priority Date/Time Associated Comments Diagnosis HC VENIPUNCTURE Routine 11/15/2021 12:04 Elevated liver Result s for this PM EST enzymes procedure are in YU (nonalcoholic the resul ts steatohepatitis) section. LIPID PANEL (REFLEX Routine 11/15/2021 12:04 Elevated liver Re sults for this DIRECT LDL) PM EST enzymes procedure are in YU (nonalcoholic the resul ts steatohepatitis) section. COMPREHENSIVE Routine 11/15/2021 12:04 Elevated liver Results for this METABOLIC PANEL PM EST enzymes procedure are in (NON-FASTING) YU (nonalcoholic the resu lts steatohepatitis) section. [id number] Routine 11/15/2021 10:30 Elevated liver Results f or this AM EST enzymes procedure are i n the results section. documented in this encounter Results Hemoglobin A1c (11/15/2021 12:04 PM EST) athologist Signature Hemoglobin A1C 5.6 4.3 - 5.6 [facility] Comment: Reference Range: 4.3 - 5.6% 5.7 - 6.4% - Increased Risk of Developin g Diabetes Mellitus >= 6.5% - Consistent with diagnosis of D iabetes Mellitus In the absence of hyperglycemia (i.e. pl asma glucose > 200 mg/dL) or classic symptoms of hyperglycemia a repeat measu rement of HbA1c should be performed on a separate sample to confirm the diagnos is. Diagnosis and Classification of Diabetes Mellitus, Diabetes Care 2013; 36: Suppl. 1, S67-30 Est Avg Gluc 115 mg/dL [facility] Comment: eAG equivalents for HbA1c percentages: HbA1c(%) ?eAG(mg/dL) 6.0 ?126 6.5 ?140 7.0 ?154 7.5 ?169 8.0 ?183 8.5 ?197 9.0 ?212 9.5 ?226 10.0 ? 240 Limitations: The eAG calculation has not been validated on women, individuals below 18 years old and above 70 years old, and individuals with hemoglobinopathies. Additional resources are available on [facility] website. Trevor JIM, Jb J, Jesusita R, et al. ??Tr anslating the A1C assay into estimated average glucose values. ??Diabetes Care 2008:31(8):4097-9686. Specimen Anatomical Collection Method Collection Time Receive d Time (Source) Location / / Volume Laterality Blood 11/15/2021 12:04 11/15/2021 PM EST 12:33 PM EST Resulting Agency Comment Spec In Lab Beronica Elizondo JOURDAN CHEMISTRY ORDERABLES Performing Organization Address City/State/[place] [address] Lipid Panel (Reflex Direct LDL) (11/15/2021 12:04 PM EST) athologist Signature Chol, Total 213 mg/dL [facility] Comment: Lower Risk: <200 mg/dL Average Risk: 200-239 mg/dL Higher Risk: >od=992 mg/dL Triglycerides 117 mg/dL [facility] Comment: Average Risk/Lower Risk: <150 mg/dL Borderline High Risk: 150-199 mg/dL High Risk: 200-499 mg/dL Very High Risk: >va=116 mg/dL HDL 53 mg/dL [facility] Comment: Males: ?? Higher Risk: <40 mg/dL Females: ?? Higher Risk: <50 mg/dL LDL Cholesterol 137 mg/dL [facility] Comment: Lowest Risk: <100 mg/dL Lower Risk: 100-129 mg/dL Borderline High Risk: 130-159 mg/dL High Risk: 160-189 mg/dL Very High Risk: >pf=866 mg/dL Chol/HDL Ratio 4.0 ratio [facility] Lipid Interpretation See Note [facility] Comment: Lipid management should be guided by a p atient? s ASCVD risk, goals and preferences. ACC/AHA Guidelines recommend high intens ity statin if clinical ASCVD or LDL greater than or equal to 190 mg/dL. http://Values of nurl.com/ULE-WHH-Fezxfdqvk Adults aged 40-75 with LDL 70-189 mg/dL should have their 10 year ASCVD risk estimated with the ACC/AHA ASCVD risk es timator http://tools.acc.org/RXIBF-Xttp-Sceuwbjj r/ Statin should be discussed if risk great er than or equal to 7.5% in non-diabetics. With diabetes, moderate i ntensity statin is recommended if risk less than 7.5%, high intensity if risk g reater than or equal to 7.5%. Annual lipid monitoring on statins is no t necessary. Evaluate secondary causes of Triglycerid es greater than 500 mg/dL or LDL greater than 190 mg/dL: See table 6 of A CC/AHA Guideline. Lifestyle modification is a critical com ponent of ASCVD risk reduction. Specimen Anatomical Collection Method Collection Time Receive d Time (Source) Location / / Volume Laterality Blood 11/15/2021 12:04 11/15/2021 PM EST 12:33 PM EST Resulting Agency Comment Spec In Lab Beronica Elizondo APRN CHEMISTRY ORDERABLES Performing Organization Address City/State/ZIP Code Phon e Number [place] [id number] (ABNORMAL) Comprehensive metabolic panel (non-fasting) (11/15/2021 12:04 PM EST) P athologist Signature Glucose Lvl 92 65 - 199 [facility] mg/dL [facility] Comment: Diabetes: >=200 mg/dL plus symp toms BUN 21 (H) 10 - 20 mg/dL [facility] Creatinine 0.76 (L) 0.80 - 1.50 mg/dL [facility] Sodium 139 135 - 145 mmol/L [facility] Potassium 4.3 3.5 - 5.0 mmol/L [facility] Comment: Please note: ??Patients with WBC >100,00 0 may have falsely elevated Potassium levels. ??For accurate Potassium quantif ication in these patients send serum separator tube (gold top) for subsequent determinations. ??Contact the Clinical Chemistry Laboratory if there are any qu estions. Chloride 105 98 - 107 mmol/L [facility] CO2 23 22 - 31 mmol/L [facility] Anion Gap 11 5 - 15 mmol/L [facility] Calcium 9.0 8.5 - 10.5 mg/dL [facility] Total Protein 6.8 6.1 - 8.0 g/dL [facility] Albumin 4.4 3.2 - 5.2 g/dL [facility] AST 32 0 - 39 unit/L [facility] ALT 54 0 - 55 unit/L [facility] Alk Phos 77 40 - 130 unit/L [facility] Total Bilirubin 0.4 0.2 - 1.3 mg/dL [facility] Estimated GFR 95 >=60 mL/min/1.73 m?? [facility] Comment: This patient? s estimated glomerular filtration rate (eGFR) is between 95 mL/min/1.73 m2 (patients with less muscl e mass per kg body weight) and 110 mL/min/1.73 m2 (patients with more muscl e mass per kg body weight) as determined by the CKD-EPI equation. Asse ssment of eGFR is not appropriate when creatinine concentrations are rapidly ch anging. For clinical decisions where creatinine clearance will affect therapy , a 24-hour urine creatinine clearance may be advised. Assignment of CKD stage 1 - 5 for patien ts with an eGFR near the transition point between stages may be based on cli nical assessment of muscle mass and symptoms in addition to eGFR. Specimen Anatomical Collection Method Collection Time Receive d Time (Source) Location / / Volume Laterality Blood 11/15/2021 12:04 11/15/2021 PM EST 12:33 PM EST Resulting Agency Comment Spec In Lab Beronica Elizondo APRN CHEMISTRY ORDERABLES Performing Organization Address City/State/[place] [address] [id number] (11/15/2021 10:30 AM EST) Narrative Beronica Elizondo APRN - 11/15/2021 10: 30 AM EST Beronica Elizondo APRN ? 11/15/2021 ??1:20 PM [facility] Liver Fibrosis Asses sment Report Indication: ?? Elevated liver enzymes Performed by: ??BERONICA ELIZONDO APRN Procedure: Vibration Controlled Transien t Elastography (VCTE) or Fibroscan [place] Protocol: Patient's identity, procedure and site were verified, confirmatory pause performed. Discussed procedure including risks and potential complicati ons. Questions answered. Patient verbalizes understanding and wis hes to proceed with Fibroscan assessment. Patient was placed in the supine positio n with right arm in maximum abduction to allow optimal expos ure of right lateral abdomen. Patient was briefly assessed. T esting was performed in the mid-axillary location. 50Hz Shear Wa ve pulses were applied and the resulting Shear Wave and Propaga tion Speed was detected with a 3.5MHz ultrasonic signal, using t he Fibroscan probe. Skin to liver capsule distance and liver pare nchyma were accessed during the entire examination with the F ibroscan probe. Patient was instructed to breathe normally and a bstain from sudden movements during the procedure. At least ten Sheer Waves were produced; individual measurements of eac h Shear Wave were calculated. Patient tolerated the proced ure well with no complications. Fibroscan Results: Median kPa: 3.4 kPa Mean IQR: 18% (goal is <30 %) Number of valid measurements: 10 (at [address] st 10 required) Number of invalid measurements: 0 Predicted fibrosis stage: F0 CAP (dB/m): 400 Estimated steatosis grade: 3/3 % hepatocytes affected: >66 ??% Interpretation: Based on this Fibroscan result, history, clinical examination and review of laboratory and radiological da ta, this patient likely has stage 0 liver fibrosis and grade 3 s teatosis affecting over 66% of hepatocytes. ?? Beronica Elizondo APRN PROCEDURE/MINOR SURGICAL ORD ERABLES documented in this encounter Visit Diagnoses Diagnosis Elevated liver enzymes Nonspecific elevation of levels of trans aminase or lactic acid dehydrogenase (LDH) YU (nonalcoholic steatohepatitis) Other chronic nonalcoholic liver disease documented in this encounter Care Teams Generator Switchboard Operator Relationship Specialty Start Date End Date Grover Herman MD PCP - General Family Medicine 07/19/20 [address] [place], [place] [id number] documented as of this encounter
--- OUTSIDE RECORDS SUMMARY | 2022-07-01 13:45 | XMS_ITS | Encounter Summary ---
:1955 Author Organization [facility] [place] [address] Care Team Providers Name Role Phone Grover Herman MD Primary Care Provider Encounter Details Date Type Department Care Team Description 04/29/2022 [facility] [address] [phone] Social History Tobacco Use Types [...] on file documented as of this encounter Miscellaneous Notes Telephone Encounter - Yissel Ashby RN - 04/29/2022 4:45 PM EDT Radiation Oncology Nurse Telephone Note [facility] [place], [place] ----- Message from Marcelle Doss sent at 04/29/2022 9:19 AM EDT ----- Regarding: Problems Urinating Dominick is having issues urinating and its been more and more lately. He is taking his flow max but itsstill not getting any better. Can we call him back at [phone] or his cell is [phone]. Thank you Ana~ 04/29/22 4:45 PM- 4:59 PM Telephone call to patient. He states that he stopped Flomax and then recently resumed 1 capsule daily on 04/23/22. When he went to his PCP for his c/o of urinary issues, he was advised to increase his Flomax to 2 a night and he started that on 04/24/22. He complains of straining with urination at night with slow intermittent stream around midnight and then 2 or 3 times again during the night. During the day he seems to urinate OK. Sometime he will strain hard enough that he will sit in case he also defecates He also has some dysuria that he grades a 5/10 so his PCP ordered a UA that was done at [facility] on 04/25 and it was negative for UTI. He denies hematuria. . Intervention:advised to try 1 Aleve at HS . Pt states he has some at home . Patient instructed to call clinic if his symptoms become worse and go to ER if not able to urinate at all. Patient verbalized understanding of these instructions. Plan: Nursing will check in with him in a couple days to see how he is doing. Amendment: Shelley Kimble APRN , informed this author that she called pt and they discussed plan of him going to urology. documented in this encounter Plan of Treatment Upcoming Encounters Date Type Specialty Care Team Description 07/08/2022 Office Visit Radiation Oncology Shelley Kimble APRN [facility] RADIATION ONCWARN[place], [place] [address] (Wo rk) documented as of this encounter Visit Diagnoses Not on filedocumented in this encounter Care Teams Financial Adviser Relationship Specialty Start Date End Date Grover Herman MD PCP - General Family Medicine 07/19/20 [address] [place] [address] documented as of this encounter
--- OUTSIDE RECORDS SUMMARY | 2022-07-01 13:45 | XMS_ITS | Encounter Summary ---
:1955 Author Organization [facility] [place] [address] Care Team Providers Name Role Phone Grover Herman MD Primary Care Provider Encounter Details Date Type Department Care Team Description 08/21/2021 Telephone Gastroenterology at [facility] [place] Ngoc Marques MD [facility] [place] [phone] GASTROENTEROLOGY DEPT [phone] [place], [place] [address] (Wo rk) Social History Tobacco Use Types Packs/Day Years [...] this encounter Miscellaneous Notes Telephone Encounter - Ngoc Marques MD - 08/21/2021 12:11 PM EST Transfer Center Call: I received a call from Nicki Romero MD at [facility]. Briefly, this is a 65 y/o M on lupron for prostate cancer who is admitted with abnormal liver tests. CT A/P - no acute process, fatty liver, hepatomegaly 20cm, veins patent, s/p cholecystectomy, normalspleen LFTs normal in December, newly elevated 08/19 VS: 36.1 173/90 56 18 98%RA Exam per provider calling: Labs: AST 793 ALT 1424 Alk Phos 140 Tbili 2.2 Tylenol level undetectable UDS neg INR 1 Hep panel pending AMA and ASmA pending Ferritin 1043 Tsat 46%MELD score: Based on the information provided to me, the general recommendations for this type of patient is - Careful review of possible exposure to medications, toxins (amanita mushrooms, carbon tetrachloride), herbs and supplements - Initiate N-Acetyl cysteine - Lab testing including: urine drug screen, APAP level, fibrinogen, HBV surface Ag, core IgM and IgG, surface ab, HCV Ab and RNA, HAV IgM, CMV IgG and PCR, EBV serologic panel, HSV PCR, HIV Ab, RPR, ceruloplasmin, STUART, ASMA, AMA - Discuss with radiology to ensure vasculature is patent on recent CT scan - Trend LFTs and monitor for encephalopathy This is not an official consult, as my recommendations are limited by my inability to interview and examine the patient as well as personally review the medical record, imaging, and laboratory findings. Ngoc Marques MD Gastroenterology Fellow 08/21/2021 12:11 PM Pager #[phone] documented in this encounter Plan of Treatment Upcoming Encounters Date Type Specialty Care Team Description 07/08/2022 Office Visit Radiation Oncology Shelley Kimble, [facility] RADIATION ONCWARNER [place], [place] [address] (Wo rk) documented as of this encounter Visit Diagnoses Not on filedocumented in this encounter Care Teams Software Consultant Relationship Specialty Start Date End Date Grover Herman MD PCP - General Family Medicine 07/19/20 [address] [place] [address] documented as of this encounter
--- OUTSIDE RECORDS SUMMARY | 2022-07-01 13:45 | XMS_ITS | Encounter Summary ---
:1955 Author Organization [facility] [place] [address] Care Team Providers Name Role Phone Grover Herman MD Primary Care Provider Encounter Details Date Type Department Care Team Description 09/26/2021 Office Visit Radiation Oncology at Shelley Kimble Ma lignant neoplasm of [facility] [employer] [employer] prostate (Primary Dx) [address] [place] [address] RADIATION ONCOLOGY [phone] [place] [id number] Social History Tobacco Use Types Packs/Day Years [...] Sign Reading Time Taken Comments Blood Pressure 154/86 09/26/2021 10:15 AM EST Pulse 80 09/26/2021 10:15 AM EST Temperature 36.4 ??C (97.6 ??F) 09/26/2021 10:15 AM EST Respiratory Rate 18 09/26/2021 10:15 AM EST Oxygen Saturation 99% 09/26/2021 10:15 AM EST Inhaled Oxygen Concentration - - Weight 102 kg (224 lb 12.8 oz) 09/26/2021 10:15 AM EST Height - - Body Mass Index 32.36 05/22/2021 8:58 AM EDT documented in this encounter Progress Notes LaminShelley guzmán, CENTER [employer] - 09/26/2021 10:15 AM ESTSummary: 65 year old M unfavorable intermediate-risk prostate ca s/p brachy seed and EBRT with 11 mon ths lupron from Sep 2020 thru Jul. [facility] [place] [address] Phone: RADIATION ONCOLOGY FOLLOW UP NOTE Date of visit: 09/26/2021 Patient Dominick Castro 1955 PCP: Grover Herman MD Urologist: Radiation oncologist: Dr. Og Flynn and Dr Sherman oMore Chief Complaint: follow up/labs for prostate cancer [...] performed under care of Dr. Flynn at [facility]. EBRT portion of therapy was delivered under care of Dr. Moore in [facility]. ? DETAILS OF RADIOTHERAPY: 1. Target Volume: Cs-131 implant -- Prostate only [id number] -- Prostate, SVs, and nodes 2. Total Dose: 29937 cGy Cs-131 implant -- 8500 cGy [id number] -- 4500 cGy in 25 fractions ?? 3. Fractional Dose: Cs-131 implant -- 8500 cGy (single administration) [id number] -- 180 cGy ?? 4. Treatment Technique: Cs-131 implant -- LDR seed brachy implant [id number] -- IMRT/IGRT/VMAT ?? 5. Energy: Cs-131 implant -- Cs-131 [id number] -- 10 MV photons ?? 6. Dates of Therapy: Cs-131 implant -- 05/06/21 [id number] -- 07/01/21 thru 08/02/21 ?? 7. Treatment [...] had cholecystectomy in December 2020 here at [facility]. Liver enzyme observed very elevated in Dec, hospitalized and then since discharge has been [...] across abdomen is present. LUPRON HELD. Mr Matthew had cholecystectomy in December with recovery as expected. He notes that once previously he has experienced a liver enzyme elevation while getting monthly lupron but has been WNL since and until this point. He does have a hx of hepatitis when he was a teen. His father and he had Hep at same time and they assumed from brook water they had both drank from. He [...] attn to health issues for . Medications 09/25/21 1423 Medication Sig Taking? tamsulosin (Flomax) 0.4 mg [...] Procedure Laterality Date ??? CHOLECYSTECTOMY ??? COLONOSCOPY 2004 and 2018 ??? JOINT REPLACEMENT hipss ??? PRO CYSTOSCOPY, REMV CALCULUS, SIMPLE N/A 05/06/2021 CYSTO, REMOVAL OF STENT, FOREIGN BODY OR CALCULUS, SIMPLE (WRVU 2.81) performed by Beronica Calixto MD at [facility] MAIN OR ??? PRO LAP, CHOLECYSTECTOMY/GRAPH N/A 01/07/2021 LAPAROSCOPIC CHOLECYSTECTOMY WITH CHOLANGIOGRAM (WRVU 11.47) performed by Ramy Porter MD [facility] MAIN OR ??? PRO PERCUT/NEEDLE INSERT, PROSTATE, RADIOISOT N/A 05/06/2021 PROSTATE SEED IMPLANT PROCEDURE (WRVU 13.46) performed by Og Flynn MD at [facility] MAIN OR ??? PRO REVISE TOTAL HIP REPLACEMENT Left 01/12/2020 @TOTAL HIP REVISION ARTHROPLASTY, COMPLETE (WRVU 30.28) performed by Jack Lewis MD at [facility] MAIN OR ??? PRO REVISE TOTAL HIP REPLACEMENT Right 07/26/2020 @TOTAL HIP REVISION ARTHROPLASTY, COMPLETE (WRVU 30.28) performed by Jack Lewis MD at [facility] MAIN OR ??? PROSTATE BIOPSY 07/17/21 at [facility] Family History Problem Relation Age of [...] reviewed the IPSS/MATTIE/Epic-Cp survey results from today 09/26/2021 10:08 AM EST - Filed by Patient Urinary function problem Small problem Urinary control Total control # of pads used per day None Urinary dripping/leakage problem No problem 5. How big a problem, if any, has each of the following been for you? Pain or burning with urination No problem Weak urine stream/incomplete bladder emptying Very small problem Need to urinate frequently No problem 6. How big a problem, if any, has each of the following been for you? Rectal pain or urgency of bowel movements No problem Increased frequency of your bowel movements No problem Overall problems with your bowel movements No problem Bloody stools No problem Ability to reach orgasm Fair Quality of your erections Not firm enough for any sexual activity Problem with sexual function or lack of it Moderate problem 10. How big a problem, if any, has each of the following been for you? Hot flashes or breast tenderness/enlargement No problem Feeling depressed No problem Lack of energy No problem Urinary Incontinence Symptom Score (range: 0 - 12) 0 Urinary Irritation/Obstructive Symptom Score (range: 0 - 12) 1 Bowel Symptom Score (range: 0 - 16) 0 Vitality/Hormonal Symptom Score (range: 0 - 12) 0 Overall Prostate Cancer QOL Score (range: 0 - 60) 1 Q - Prostate Followup Survey Question 09/26/2021 10:11 AM EST - Filed by Patient Reason for visit Follow up on existing problem(s) Incomplete emptying Not at all Frequency Less than half the time Intermittency Less than half the time Urgency Not at all Weak Stream Less than 1 time in 5 Straining Less than 1 time in 5 Nocturia 1 time Quality of life Mostly satisfied Total IPSS Score (range: 0 - 35) 7 ( Mild LUTS) Confidence, level - past 6 months Low Penetration - past 6 months No sexual activity Penetration, maintain - past 6 months Did not attempt intercourse Erection, maintain - past 6 months Did not attempt intercourse Sexual satisfaction - past 6 months Did not attempt intercourse Sexual Health in Men (range: 1 - 21) 2 (Severe ED) Patient concerns for today's visit: General: R supraclavicular mole removed by Derm Aug ([facility] [place]) Fatigue:not severe, improving slowly. Weight/appetite/diet, no n/v/d/c, no bleeding in stool (nausea resolved with improvement of liver enzymes) Respiratory:no sx or illness/ he does have deviated septum and chronic PND. GI: no blood in stool. Had cholecystectomy in December. Has celiac and lactose intol so sometimes he will have mild diffuse discomfort but nothing like when liver enzymes elevated. Taste has reurned :no hematuria, LUTs getting better slowly 2x at noc to urinate. Endocrine:no hot flashes at this time Sexual health: Muscle skeletal:Has chronic shoulder pain, rotator cuff injury and is choosing not to get surgery right now. Bone health: r shoulder pain, rotator cuff injury but no surg planned right now. Neuro:no sx Mood:doing okay Sleep:no urination through noc. Still using flow max Function:doing much better and feels recovered. 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 BP 154/86 Pulse 80 Temp 36.4 ??C (97.6 ??F) (Temporal) Resp 18 Wt 102 kg (224 lb 12.8 oz) Constitutional: seen in clinic HENT: normocephalic, [...] Reviewed this visit: Date PSA Test Notes 08/19/21 0.28 04/25/21 4.98??High?? No results found for this or any previous visit (from the past 72 hour(s)). Assessment: 65 y.o. presenting for follow up/ lab/leuprolide for prostate cancer. Mr Castro had been receiving monthly lupron injections from January 2021 Kyle. Goal was one year of Lupron therapy in conjunction with his brachy and EBRT. Due to severe liver enzyme elevation in Dec andtook until this point to correct, pt is no longer on Lupron. He received 11 months out of 12 which was goal. He is being followed closely by his pcp as well. He uses oxycodone/acetaminophen sparingly for shoulder arthritis. Half tab at a time, no ETOH use, minimal medications. He is up to urinate 0-1x noc. On one flow max now. No changes in urination, no hematuria, no blood in stool. Rare constipation not causing problems. Had uncle who in 1970s from met to bone from communications director and this is in his mind. Medical [...] Body weight/nutrition, no changes at thime Exercise:not exercising Bone health:only the l elbow troubles him and that is arthritis he feels, going to address with PCP this week. Smoking:none Alcohol: none (caution r/t liver enzyme elevations) Annual exam with PCP:this week Up to date on vaccinations:covid x 2 and boostered Colorectal screening: Lung cancer screening:n/a # resources provided: # referrals done: US abdom complete. # follow up: Per NCCN guidelines, PSA and history/physical every 6-12 months X 5 years, then annually. Annual JOSE (unless PSA undetectable or prostatectomy). PSA may be checked more frequently depending on risk level or other patient specific factors. Next visit:check labs in one month w/o visit and then labs in 6 months and visit for f/u prostate. Labs: PSA, testosterone, CBC, CMP Dominick Fraire Matthew had the opportunity to ask questions and I answered them to the best of my knowledge.Dominick Fraire Matthew agreed to contact radiation oncology in between visits if he has any questions/concerns or new symptoms in regards to the radiation therapy/prostate cancer Shelley Kimble MSN, C[facility] [employer], POLE CLIMBER-C Nurse Practitioner Radiation Oncology documented in this encounter Plan of Treatment Upcoming Encounters Date Type Specialty Care Team Description 07/08/2022 Office Visit Radiation Oncology Shelley Kimble APRN [facility] RADIATION ONCWARNER [place], [place] [address] (Wo rk) Scheduled Orders Name Type Priority Associated Diagnoses Order S chedule CBC (with Diff) Lab Routine Malignant neoplasm of Exp ected: 03/27/2022 prostate (Approximate), Expires: 2022 Comprehensive metabolic Lab Routine Malignant neoplas m of Expected: 03/27/2022 panel (non-fasting) prostate (Approxi mate), Expires: 2022 PSA (Ultrasensitive) Lab Routine Malignant neoplasm o f Expected: 03/29/2022 prostate (Approximate), Expires: 2022 Testosterone, total Lab Routine Malignant neoplasm of Expected: 03/29/2022 prostate (Approximate), Expires: 2022 documented as of this encounter Visit Diagnoses Diagnosis Malignant neoplasm of prostate - Primary documented in this encounter Care Teams Atomic Fuel Assembler Relationship Specialty Start Date End Date Grover Herman MD PCP - General Family Medicine 07/19/20 [address] [place] [address] documented as of this encounter
--- OUTSIDE RECORDS SUMMARY | 2022-07-01 13:45 | XMS_ITS | Encounter Summary ---
:1955 [place] [address] Care Team Providers Name Role Phone Grover Herman MD Primary Care Provider Encounter Details Date Type Department Care Team Description 08/21/2021 Ancillary Procedure [facility] Tamar Santizo MD ERROR / CORRECTION ) [facility] [address] [place] GASTROENTEROLOGY [address] [place], [place] [phone] [address] Social History Tobacco Use Types Packs/Day Years [...] 07/08/2022 Office Visit Radiation Oncology Shelley Kimble, SETTER IN[employer]ATING [employer] [facility] RADIATION [place] [address] (Wo rk) documented as of this encounter Visit Diagnoses Not on filedocumented in this encounter Care Teams Composite Worker Relationship Specialty Start Date End Date Grover Herman MD PCP - General Family Medicine 07/19/20 [address] [place] [address] documented as of this encounter
--- OUTSIDE RECORDS SUMMARY | 2022-07-01 13:45 | XMS_ITS | Encounter Summary ---
:1955 Author Organization [facility] [place] [address] Care Team Providers Name Role Phone Grover Herman MD Primary Care Provider Encounter Details Date Type Department Care Team Description 08/27/2021 Telephone Radiation Oncology at Shelley Kimble APRN [address] RADIATION ONCOLOGY [place], [place] [phone] [place] [address] [phone] (Wo rk) Social History Tobacco Use Types [...] this encounter Miscellaneous Notes Telephone Encounter - Shelley Kimble APRN - 08/27/2021 5:08 PM ESTSummary: 65 year old M s/p brachy seed and EBRT with 11 months lupron from Sep 2020 thru Nov. Hepatitis unknown orig. Called Mr Castro to discuss lab findings from today with AST in 200 range and Alk Phos minimally elevated. AST WNL. He is doing better, feeling better and happy to hear liver enzymes continue downwardtrend. The hepatitis he has experienced has been of unknown origin and there are still some viral lab evaluations pending. He has had a referral to GI dept. And is to f/u with his PCP 1-2 week post discharge. I have asked him to call these offices to arrange these f/u appts. He nearly made one year of Lupron which was the goal of tx. He is reluctant to have any more lupron as he feels that every time he received Lupron he would have the diffuse upper abdominal pain, albeitmild until last week it became more serious and he was hospitalized with the hepatitis. He would like to follow with me in one month to check in on PSA and testosterone and CMP. I will check in with Dr Flynn and Dr Moore but pt is inclined to pause/stop Lupron given how he reacted. Discharge summary is scanned into media. documented in this encounter Plan of Treatment Upcoming Encounters Date Type Specialty Care Team Description 07/08/2022 Office Visit Radiation Oncology Shelley Kimble APRN [facility] RADIATION ONCOLO [place], [place] [address] (Wo rk) documented as of this encounter Visit Diagnoses Not on filedocumented in this encounter Care Teams Trim Line Worker Relationship Specialty Start Date End Date Grover Herman MD PCP - General Family Medicine 07/19/20 [address] [place] [address] documented as of this encounter
--- OUTSIDE RECORDS SUMMARY | 2022-07-01 13:45 | XMS_ITS | Encounter Summary ---
:1955 Author Organization [facility] [place] [address] Care Team Providers Name Role Phone Grover Herman MD Primary Care Provider Reason for Visit Reason Comments Injections IM Lupron High Dollar Medication (Routine) - Specialty Diagnoses / Procedures Referred By Contact Refer red To Contact Hematology and Oncology Diagnoses Malignant neoplasm of prostate Sherman Davis MD St [facility] Onc Infusion Procedures TC LEUPROLIDE ACETATE 7.5MG, FOR DEPOST SUSPENSION (LUPRON DEPOT) INFUSION ROOM [address] [place] [address] [place] [id number] Referral ID Status Reason Start Date Expiration Date Visits V isits Requested Authorized [id number] 10/05/2020 09/17/2021 99 99 Encounter Details Date Type Department Care Team Description 03/20/2021 [facility] prostate [address] [place] [phone] Social History Tobacco Use Types [...] drinks containing alcohol do 1 or 2 01 / you have on a typical day when you are drinking? How often do you have six or more Never 2020 drinks on one occasion? Comment: Occasionally, 0-1 drinks a week 01/04/20 16 Sex Assigned at Date Recorded Not on file documented as of this encounter Last Filed Vital Signs Vital Sign Reading Time Taken Comments Blood Pressure 157/89 03/20/2021 8:32 AM EDT Pulse 61 03/20/2021 8:32 AM EDT Temperature 36.2 ??C (97.1 ??F) 03/20/2021 8:32 AM EDT Respiratory Rate 18 03/20/2021 8:32 AM EDT Oxygen Saturation 98% 03/20/2021 8:32 AM EDT Inhaled Oxygen Concentration - - Weight 99.3 kg (219 lb) 03/20/2021 8:32 AM EDT Height 175.9 cm (5' 9.25) 03/20/2021 8:32 AM EDT Body Mass Index 32.11 03/20/2021 8:32 AM EDT documented in this encounter Progress Notes Carlyn Kinney RN - 03/20/2021 8:30 AM EDT Infusion Note Diagnosis: Prostate Cancer Treatment: Lupron Injection Lupron 7.5 mg injected in left buttocks Assessment: Patient instructed on side effects of Lupron. Patient states understanding of teaching, Patient aware to call clinic with any questions or concerns. Seen by Dr. Moore. Plan: Return to clinic as scheduled. documented in this encounter Plan of Treatment Upcoming Encounters Date Type Specialty Care Team Description 07/08/2022 Office Visit Radiation Oncology Shelley Kimble APRN [facility] RADIATION ONCWARNER [place], [place] [address] (Wo rk) documented as of this encounter Visit Diagnoses Diagnosis Malignant neoplasm of prostate documented in this encounter Administered Medications Inactive Administered Medications - up to 3 most recent administrations Medication Order MAR Action Action Date Dose Rate Site leuprolide (Lupron Depot) Given 03/20/2021 8:47 AM EDT 7.5 mg Left Gluteal injection 7.5 mg 7.5 mg, Intramuscular, ONCE, 1 dose, On Thu03/20/21 at 0845, Routine, This agent is restricted to outpatient use. Is this drug being given as an outpatient? Yes documented in this encounter Care Teams Bankman Relationship Specialty Start Date End Date Grover Herman MD PCP - General Family Medicine 07/19/20 [address] [place] [address] documented as of this encounter
--- OUTSIDE RECORDS SUMMARY | 2022-07-01 13:45 | XMS_ITS | Encounter Summary ---
:1955 Author Organization [facility] [place] [address] Care Team Providers Name Role Phone Grover Herman MD Primary Care Provider Reason for Visit Reason Comments Chemotherapy Lupron injection High Dollar Medication (Routine) - Specialty Diagnoses / Procedures Referred By Contact Refer red To Contact Hematology and Oncology Diagnoses Malignant neoplasm of prostate Sherman Davis MD [facility] Onc Infusion Procedures TC LEUPROLIDE ACETATE 7.5MG, FOR DEPOST SUSPENSION (LUPRON DEPOT) INFUSION ROOM [address] [place] [address] [place] [id number] Referral ID Status Reason Start Date Expiration Date Visits V isits Requested Authorized [id number] 10/05/2020 09/17/2021 99 99 Encounter Details Date Type Department Care Team Description 04/19/2021 [facility] [address] [place] [address] [phone] Social History Tobacco Use Types [...] Sign Reading Time Taken Comments Blood Pressure 166/90 04/19/2021 9:12 AM EDT Pulse 60 04/19/2021 9:12 AM EDT Temperature 36.7 ??C (98 ??F) 04/19/2021 9:12 AM EDT Respiratory Rate 18 04/19/2021 9:12 AM EDT Oxygen Saturation 97% 04/19/2021 9:12 AM EDT Inhaled Oxygen Concentration - - Weight 100.3 kg (221 lb 3.2 oz) 04/19/2021 9:12 AM EDT Height 175.3 cm (5' 9) 04/19/2021 9:12 AM EDT Body Mass Index 32.67 04/19/2021 9:12 AM EDT documented in this encounter Progress Notes Michelle Warren RN - 04/19/2021 9:00 AM EDT Infusion Note Diagnosis: Prostate Cancer Treatment: Lupron Injection Lupron 7.5 mg injected in Right buttocks Assessment: Patient instructed on side effects of Lupron. Patient states understanding of teaching, Patient aware to call clinic with any questions or concerns. Plan: Return to clinic as scheduled. documented in this encounter Plan of Treatment Upcoming Encounters Date Type Specialty Care Team Description 07/08/2022 Office Visit Radiation Oncology Shelley Kimble APRN [facility] RADIATION ONCWARNER [place], [place] [address] (Wo rk) documented as of this encounter Visit Diagnoses Diagnosis Malignant neoplasm of prostate documented in this encounter Administered Medications Inactive Administered Medications - up to 3 most recent administrations Medication Order MAR Action Action Date Dose Rate Site leuprolide (Lupron Depot) Given 04/19/2021 9:32 AM EDT 7.5 mg Right Gluteal injection 7.5 mg 7.5 mg, Intramuscular, ONCE, 1 dose, On Thu04/19/21 at 0945, Routine, This agent is restricted to outpatient use. Is this drug being given as an outpatient? Yes documented in this encounter Care Teams Warp Dyeing Vat Tender Relationship Specialty Start Date End Date Grover Herman MD PCP - General Family Medicine 07/19/20 [address] [place] [address] documented as of this encounter
--- OUTSIDE RECORDS SUMMARY | 2022-07-01 13:45 | XMS_ITS | Encounter Summary ---
:1955 Author Organization [facility] [place] [address] Care Team Providers Name Role Phone Grover Herman MD Primary Care Provider Encounter Details Date Type Department Care Team Description 04/25/2021 Hospital Encounter Hematology and Maligna nt neoplasm of Oncology [place] [facility] [place] [phone] Social History Tobacco Use Types Packs/Day Years [...] on file documented as of this encounter Medications at Time of Discharge Medication Sig Dispensed Refills Start Date End Date tamsulosin (Flomax) 0.4 Take 1-2 capsules by 90 tablet 3 mg Capsule mouth nightly. Per procedure calendar oxyCODONE-acetaminophen 1 tablet every 4 0 2019 (Percocet) 5-325 mg hours as needed (hip Tablet and shoulder pain ( sometimes takes only 1/2 tab)). levoFLOXacin (LEVAQUIN) Take 1 tablet by 7 tablet 0 202005/02/2021 500 mg Tablet mouth daily for 7 days. Start per procedure calendar dexamethasone (Decadron) 4 mg BID X 14 days, 40 tablet 0 07/04/2021 4 mg Tablet then 2 mg BID X 7 days, then 2 mg daily X 7 days, then stop; per procedure calendar documented as of this encounter Plan of Treatment Upcoming Encounters Date Type Specialty Care Team Description 07/08/2022 Office Visit Radiation Oncology Shelley Kimble, MAILROOM SUPERVISOR [facility] ER RADIATION ONCWARNER [facility] [place] [address] (Wo rk) documented as of this encounter Procedures Procedure Name Priority Date/Time Associated Comments Diagnosis HEMOGRAM Routine 04/25/2021 12:34 Malignant neoplasm Resul ts for this PM EDT of prostate procedure are i n the results section. DIFFERENTIAL, Routine 04/25/2021 12:34 Malignant neoplasm Resu lts for this AUTOMATED PM EDT of prostate procedure are i n the results section. HC CBC,PLT & AUTO DIFF Routine 04/25/2021 12:34 Malignant neop lasm PM EDT of prostate HC TESTOSTERONE, SERUM Routine 04/25/2021 12:34 Malignant neop lasm Results for this PM EDT of prostate procedure are i n the results section. HC PROSTATE SPECIFIC Routine 04/25/2021 12:34 Malignant neopla sm Results for this ANTIGEN PM EDT of prostate procedure are i n the results section. COMPREHENSIVE Routine 04/25/2021 12:34 Malignant neoplasm Resu lts for this METABOLIC PANEL PM EDT of prostate procedure ar e in (NON-FASTING) the results section. documented in this encounter Results Differential, Automated (04/25/2021 12:34 PM EDT) P athologist Signature Neutrophils % 47.5 % [facility] Neutr Abs (ANC) 3.01 1.70 - [facility] 6.10 [facility] x10(3)/[facility] LABORATORY Lymphocytes % 41.0 % [facility] Lymphocytes Abs 2.6 0.9 - 3.2 [facility] x10(3)/[facility] LABORATORY Monocytes % 8.5 % [facility] Monocyte Abs 0.5 0.3 - 0.9 [facility] x10(3)/[facility] LABORATORY Eosinophils % 1.9 % [facility] Eosinophils Abs 0.1 0.0 - 0.4 [facility] x10(3)/[facility] LABORATORY Basophils % 0.8 % [facility] Basophils Abs 0.0 0.0 - 0.1 [facility] x10(3)/[facility] LABORATORY Immature Gran % 0.30 % [facility] Comment: Immature granulocytes(IG's)percentage an d absolute count will include metamyelocytes, myelocytes, and promyelo cytes. Blood smears from CBCs yielding IG's will be scanned manually for concor dance. If this scan disagrees with the automated IG or if promyelocytes are not ed, a manual differential will be performed. Sarai Gran Abs 0.02 0.00 - 0.04 x10(3)/[facility] LABORATORY Specimen Anatomical Collection Method Collection Time Receive d Time (Source) Location / / Volume Laterality Blood 04/25/2021 12:34 04/25/2021 PM EDT 12:44 PM EDT Resulting Agency Comment Spec In Lab Lynda Napoles APRN HEMATOLOGY ORDERABLES Performing Organization Address City/State/[place] [address] Hemogram (04/25/2021 12:34 PM EDT) P athologist Signature WBC 6.3 4.0 - 9.5 [facility] x10(3)/[facility] LABORATORY RBC 4.82 4.58 - [facility] 5.54 [facility] x10(6)/[facility] LABORATORY Hemoglobin 14.5 13.7 - [facility] 16.5 gm/dL [facility] Hematocrit 42.9 40.5 - [facility] % [facility] MCV 89.0 82.9 - [facility] 93.1 fL [facility] MCH 30.1 27.5 - [facility] 32.1 pg [facility] MCHC 33.8 32.0 - [facility] 35.7 gm/dL [facility] Platelets 223 145 - 357 [facility] x10(3)/[facility] LABORATORY RDWSD 44.1 36.0 - [facility] 45.0 [facility] LABORATORY RDWCV 13.4 11.4 - [facility] 13.8 % [facility] LAB[facility] MPV 12.0 7.6 - 12.9 [facility] LABORATORY nRBC % Auto 0.0 % [facility] nRBC Abs Auto 0.000 0.000 - [facility] 0.000 [facility] x10(3)/[facility] LABORATORY Specimen Anatomical Collection Method Collection Time Receive d Time (Source) Location / / Volume Laterality Blood 04/25/2021 12:34 04/25/2021 PM EDT 12:44 PM EDT Resulting Agency Comment Spec In Lab Lynda Napoles APRN HEMATOLOGY ORDERABLES Performing Organization Address City/State/[place] [address] (ABNORMAL) Comprehensive metabolic panel (non-fasting) (04/25/2021 12:34 PM EDT) P athologist Signature Glucose Lvl 97 65 - 199 [facility] mg/dL [facility] Comment: Diabetes: >=200 mg/dL plus symp toms BUN 11 10 - 20 mg/dL [facility] Creatinine 0.78 (L) 0.80 - 1.50 mg/dL [facility] Sodium 141 135 - 145 mmol/L [facility] Potassium 4.1 3.5 - 5.0 mmol/L [facility] Comment: Please note: ??Patients with WBC >100,00 0 may have falsely elevated Potassium levels. ??For accurate Potassium quantif ication in these patients send serum separator tube (gold top) for subsequent determinations. ??Contact the Clinical Chemistry Laboratory if there are any qu estions. Chloride 104 98 - 107 mmol/L [facility] CO2 28 22 - 31 mmol/L [facility] Anion Gap 9 5 - 15 mmol/L [facility] Calcium 9.3 8.5 - 10.5 mg/dL [facility] Total Protein 7.0 6.1 - 8.0 gm/dL [facility] Albumin 4.4 3.2 - 5.2 gm/dL [facility] AST 22 0 - 39 unit/L [facility] ALT 45 0 - 55 unit/L [facility] Alk Phos 87 40 - 130 unit/L [facility] Total Bilirubin 0.2 0.2 - 1.3 mg/dL [facility] Estimated GFR 94 >=60 mL/min/1.73 m?? [facility] Comment: This patient? s estimated glomerular filtration rate (eGFR) is between 94 mL/min/1.73 m2 (patients with less muscl e mass per kg body weight) and 109 mL/min/1.73 m2 (patients with more muscl e [...] (Source) Location / / Volume Laterality Blood 04/25/2021 12:34 04/25/2021 PM EDT 12:44 PM EDT Resulting Agency Comment Spec In Lab Lynda Napoles APRN CHEMISTRY ORDERABLES Performing Organization Address City/State/[place] [address] (ABNORMAL) PSA (Ultrasensitive) (04/25/2021 12:34 PM EDT) Analysis Performed At Patho logist Time Signature PSA Total 4.98 (H) 0.00 - [facility] (Ultrasensitiv 4.00 ng/mL [facility] LABORATORY Comment: PLEASE NOTE: The above reference interva l is intended for healthy males with an intact prostate. Values within this refe rence interval may indicate recurrence in men who have undergone radical prosta tectomy. Specimen Anatomical Collection Method Collection Time Receive d Time (Source) Location / / Volume Laterality Blood 04/25/2021 12:34 04/25/2021 PM EDT 12:44 PM EDT Resulting Agency Comment Spec In Lab Lynda Napoles MAILROOM SUPERVISOR CHEMISTRY ORDERABLES Performing Organization Address City/State/ZIP Code [place] [address] Testosterone, total (04/25/2021 12:34 PM EDT) athologist Signature Testo Total 2.12 1.93 - 7.40 [place] ng/mL [facility] Comment: Pediatric Reference Ranges: ? Males (7 - 18 years) ?Females (8 - 18 years) Yehuda Stage ?ng/m l ? ng/ml ? 1 ? <0.0 3 ? <0.03 to 0.06 ? 2 ? <0.0 3 to 4.32 ? <0.03 to 0.10 ? 3 ?0. 65 to 7.78 ? <0.03 to 0.24 ? 4 ?1. 80 to 7.63 ? <0.03 to 0.27 ? 5 ?1. 88 to 8.82 ?0.05 to 0.38 Stated reference ranges derived from rev iew of Anthony Francois Testosterone II 05/2016, v6.0 Specimen Anatomical Collection Method Collection Time Receive d Time (Source) Location / / Volume Laterality Blood 04/25/2021 12:34 04/25/2021 PM EDT 12:44 PM EDT Resulting Agency Comment Spec In Lab Lynda Napoles MAILROOM SUPERVISOR CHEMISTRY ORDERABLES Performing Organization Address City/State/[place] [address] documented in this encounter Visit Diagnoses Diagnosis Malignant neoplasm of prostate documented in this encounter Care Teams Pumpman Relationship Specialty Start Date End Date Grover Herman MD PCP - General Family Medicine 07/19/20 [address] [place] [address] documented as of this encounter
--- OUTSIDE RECORDS SUMMARY | 2022-07-01 13:45 | XMS_ITS | Encounter Summary ---
:1955 Author Organization [facility] [place] [address] Care Team Providers Name Role Phone Grover Herman MD Primary Care Provider Reason for Referral Diagnostic Test (Routine) - Pending Review Specialty Diagnoses / Procedures Referred By Contact Refer red To Contact Radiology Diagnoses Malignant neoplasm of prostate Og Flynn MD [facility] Rad Mri Procedures MRI Pelvis wo (Prostate) [facility] [place] [address] [place] [address] Referral ID Status Reason Start Expiration Visits Visits Date Date Requested Authorized [id number] Pending Specialty 05/09/2021 11/09/2022 1 1 Review Service Requested Reason for Visit Diagnostic Test (Routine) - Pending Review Specialty Diagnoses / Procedures Referred By Contact Refer red To Contact Radiology Diagnoses Malignant neoplasm of prostate Og Flynn MD [facility] Rad Mri Procedures MRI Pelvis wo (Prostate) [facility] [place] [address] [place] [address] Referral ID Status Reason Start Expiration Visits Visits Date Date Requested Authorized [id number] Pending Specialty 05/09/2021 11/09/2022 1 1 Review Service Requested Encounter Details Date Type Department Care Team Description 06/18/2021 Hospital Encounter MRI at [facility] Og Flynn Malignant neoplasm [facility] MD Binh of [address] [place], [place] CENTER [address] RADIATION [phone] [address] Social History Tobacco Use Types Packs/Day Years [...] Office Visit Radiation Oncology Shelley Kimble APRN [facility] ER RADIATION ONCWARNER [place], [place] [address] (Wo rk) documented as of this encounter Procedures Procedure Name Priority Date/Time Associated Diagnosis Comme nts MRI PELVIS WO Routine 06/18/2021 6:20 PM Malignant neoplasm Re sults for this (PROSTATE) EDT of prostate procedure are i n the results section. documented in this encounter Results MRI Pelvis wo (Prostate) (06/18/2021 6:20 PM EDT) Anatomical Region Laterality Modality Pelvis Magnetic Resonance Specimen (Source) Anatomical Location Collection Method / Collectio n Time Received Time / Laterality Volume Impressions 06/19/2021 8:34 AM EDT Posttreatment changes, as above. Thank you for letting us participate in the care of this patient. ??If you are a health care provider and have any questi ons regarding this report, please contact the number below. ??For patients who have questions please contact the health customer care coordinator that requested your imaging first. ? Narrative 06/19/2021 8:34 AM EDT EXAMINATION: MRI PELVIS WO (PROSTATE) CLINICAL HISTORY: Prostate cancer. ??s/p seed implant. ??Now planning for EBRT portion of therapy. ??MRI to assess pros palmer anatomy and gel position. ??Please include axial, contiguous, close-cut dolores ges clearly delineating the gland boundaries and the 2 coils in the gland. TECHNIQUE: MRI of the prostate without contrast. COMPARISON: December 27, 2020, September 27, 2020 FINDINGS: The prostate gland measures 3 x 4.8 x 4. 8 cm for calculated volume of 36 cc. Brachytherapy seeds in the prostate, and SpaceOAR gel between the rectum and the prostate gland. No pelvic lymphadenopath y or osseous metastases detected. Bilateral total hip arthroplasties are a gain noted. Procedure Note Oren Scanlon MD - 06/19/2021For matting of this note might be different from the original. EXAMINATION: MRI PELVIS WO (PROSTATE) CLINICAL HISTORY: Prostate cancer. s/p s eed implant. Now planning for EBRT portion of therapy. MRI to assess prosta te anatomy and gel position. Please include axial, contiguous, close-cut dolores ges clearly delineating the gland boundaries and the 2 coils in the gland. TECHNIQUE: MRI of the prostate without contrast. COMPARISON: December 27, 2020, September 27, 2020 FINDINGS: The prostate gland measures 3 x 4.8 x 4. 8 cm for calculated volume of 36 cc. Brachytherapy seeds in the prostate, and SpaceOAR gel between the rectum and the prostate gland. No pelvic lymphadenopath y or osseous metastases detected. Bilateral total hip arthroplasties are a gain noted. IMPRESSION Posttreatment changes, as above. Thank you for letting us participate in the care of this patient. If you are a health care provider and have any questi ons regarding this report, please contact the number below. For patients w ho have questions please contact the health customer care coordinator that requested your imaging first. Og Flynn MD IMG MRI ORDERABLES documented in this encounter Visit Diagnoses Diagnosis Malignant neoplasm of prostate documented in this encounter Care Teams Wet Pan Operator Relationship Specialty Start Date End Date Grover Herman MD PCP - General Family Medicine 07/19/20 [address] [place] [address] documented as of this encounter
--- OUTSIDE RECORDS SUMMARY | 2022-07-01 13:45 | XMS_ITS | Encounter Summary ---
:1955 Author Organization [facility] [place] [address] Care Team Providers Name Role Phone Grover Herman MD Primary Care Provider Encounter Details Date Type Department Care Team Description 08/21/2021 Telephone Radiation Oncology a t [facility] Shelley Kimble, MEDICAL ASSISTANT PRN [facility] [place] [phone] RADIATION ONCOLOGY [phone] [place] [address] (Wo rk) Social History Tobacco Use Types [...] encounter Miscellaneous Notes Telephone Encounter - Shelley Kimble, JOURDAN - 08/21/2021 10:39 AM ESTSummary: 65 year old M dx with 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 Thursday pt arrived with for routine post brachy and EBRT prostate f/u and for Lupron. His liver enzymes were elevated so Lupron held. Mrs Castro called this morning to relate that she took Mr Castro to [facility] last noc to the ED. He was having increased nausea and pain to abdomen. calling to let us know what his situation is. [facility] doctors know that he did not have the lupron injection yesterday due to AST/ALT rise. His abdominal pain and nausea increased and these were indicators I instructed them to have ER eval. He spent night in [facility] and had US this morning and CT last ed. I have asked that imaging and notes be sent to us here which she agreed to request. I indicated I would pass info to Dr Flynn and Dr Moore. Sec at [facility] requested to get imaging and notes. documented in this encounter Plan of Treatment Upcoming Encounters Date Type Specialty Care Team Description 07/08/2022 Office Visit Radiation Oncology Shelley Kimble APRN [facility] ER RADIATION ONCWARNER [place], [place] [address] (Wo rk) documented as of this encounter Visit Diagnoses Not on filedocumented in this encounter Care Teams Merchandise Distributor Relationship Specialty Start Date End Date Grover Herman MD PCP - General Family Medicine 07/19/20 [address] [place] [address] documented as of this encounter
--- OUTSIDE RECORDS SUMMARY | 2022-07-01 13:45 | XMS_ITS | Encounter Summary ---
:1955 Author Organization [facility] [place] [place] [address] Care Team Providers Name Role Phone Grover Herman MD Primary Care Provider Encounter Details Date Type Department Care Team Description 07/11/2021 [facility] prostate [address] [place], [place] RADIATION ONCOL OGY [address] [place], [place] [phone] (Wo rk) Social History Tobacco Use Types [...] Sign Reading Time Taken Comments Blood Pressure 161/97 07/11/2021 11:00 AM EDT Pulse 76 07/11/2021 11:00 AM EDT Temperature 36.7 ??C (98 ??F) 07/11/2021 11:00 AM EDT Respiratory Rate 20 07/11/2021 11:00 AM EDT Oxygen Saturation 99% 07/11/2021 11:00 AM EDT Inhaled Oxygen Concentration - - Weight 103 kg (227 lb) 07/11/2021 11:00 AM EDT Height - - Body Mass Index 32.68 05/22/2021 8:58 AM EDT documented in this encounter Progress Notes Sherman Moore MD - 07/11/2021 11:15 AM EDT Images from the original note were not included. RADIATION ONCOLOGY - Weekly On Treatment Visit Note 07/11/21 SHERMAN MOORE MD Radiation Oncology [facility] [phone] (paging bone cooking operator) Pager #[phone] PATIENT IDENTIFICATION Name Dominick Castro Date of 1955 PCP Grover Herman MD Referring MD (if different) Dr. Flynn Diagnosis Unfavorable intermediate-risk prostate cancer (cT2b, Gl 4+3, PSA 11) s/p Cs-131 implant (85Gy) 05/06/21 NEOADJUVANT / CONCURRENT THERAPY: LT-ADT (planned 12 months) ONCBCN ONCOLOGY (AMB) 10/05/2020 11/07/2020 12/06/2020 01/14/2021 leuprolide (Lupron Depot) IM 7.5 mg 7.5 mg 7.5 mg 7.5 mg ONCBCN ONCOLOGY (AMB) 02/13/2021 03/20/2021 04/19/2021 05/22/2021 leuprolide (Lupron Depot) IM 7.5 mg 7.5 mg 7.5 mg 7.5 mg ONCBCN ONCOLOGY (AMB) 06/21/2021 leuprolide (Lupron Depot) IM 7.5 mg INTENT OF THERAPY: Definitive (Curative) RADIATION TREATMENT DETAILS: Initial Treatment Site Pelvis, Entire SV and Prostate Prescribed Dose 45 Gy in 25 fractions Current Dose: 16.2 Gy in 9 fractions INTERVAL HISTORY General Overall feels fair. GI No diarrhea. Nocturia 2x/nt at baseline. Now going 3x/nt. Taking Aleve BID for dysuria for weaker stream. Also taking flomax 0.4mg BID. Pain: Pain score today is 0/10. Prostate Today's Scores 09/28/2020 12/27/2020 Sexual Health Inventory for Men 25 21 (Mild ED) International Prostate Symptom Score 3 ( Mild LUTS) 6 ( Mild LUTS) MEDICATIONS Medications 07/11/21 1128 Medication Sig Taking? naproxen sodium (ANAPROX) 220 mg Tablet Take 220 mg by mouth 2 times daily (with meals). To keep urinary steam from becoming weak Yes tamsulosin (Flomax) 0.4 mg Capsule Take 1-2 capsules by mouth nightly. Per procedure calendar Patient taking differently: Take 0.8 mg by mouth nightly. Per procedure calendar Yes oxyCODONE-acetaminophen (Percocet) 5-325 mg Tablet 1 tablet every 4 hours as needed (hip and shoulder pain ( sometimes takes only 1/2 tab)). Yes IMAGING I have personally reviewed this patient's interval portal imaging to confirm accurate positioning and alignment which matches the patient's original approved treatment planning images. EXAM: BP (!) 161/97 Pulse 76 Temp 36.7 ??C (98 ??F) Resp 20 Wt 103 kg (227 lb) SpO2 99% BMI 32.68 kg/m?? Constitutional: he appears well-developed and well-nourished. No distress. Performance Status: KPS Score ECOG Grade Definition 90-100 0 Fully active, able to carry on all pre-disease performance without restriction X 70-80 1 Restricted in physically strenuous activity but ambulatory and able to carry out work of alight or sedentary nature, e.g., light house work, [...] selfcare; totally confined to bed or chair IMPRESSION/PLAN Tolerance to radiotherapy/ADT: Tolerating as anticipated. Continue as planned. Next Lupron 07/17 Followup: Return to clinic next week for on treatment check. documented in this encounter Plan of Treatment Upcoming Encounters Date Type Specialty Care Team Description 07/08/2022 Office Visit Radiation Oncology Shelley Kimble APRN [facility] RADIATION ONCWARNER [place], [place] [address] (Wo rk) documented as of this encounter Visit Diagnoses Diagnosis Malignant neoplasm of prostate documented in this encounter Care Teams Military Aircraft Designer Relationship Specialty Start Date End Date Grover Herman MD PCP - General Family Medicine 07/19/20 [address] [place] [address] documented as of this encounter
--- OUTSIDE RECORDS SUMMARY | 2022-07-01 13:45 | XMS_ITS | Encounter Summary ---
:1955 Author Organization [facility] [place] [address] Care Team Providers Name Role Phone Grover Herman MD Primary Care Provider Encounter Details Date Type Department Care Team Description 07/18/2021 [facility] prostate [address] [place], [place] RADIATION ONCOL OGY [address] [place], [place] [phone] (Wo rk) Social History Tobacco Use Types [...] Sign Reading Time Taken Comments Blood Pressure 154/94 07/18/2021 11:00 AM EDT Pulse 72 07/18/2021 11:00 AM EDT Temperature 36.4 ??C (97.5 ??F) 07/18/2021 11:00 AM EDT Respiratory Rate 16 07/18/2021 11:00 AM EDT Oxygen Saturation 98% 07/18/2021 11:00 AM EDT Inhaled Oxygen Concentration - - Weight 102.2 kg (225 lb 6.4 oz) 07/18/2021 11:00 AM EDT Height - - Body Mass Index 32.45 05/22/2021 8:58 AM EDT documented in this encounter Progress Notes Sherman Moore MD - 07/18/2021 11:45 AM EDT Images from the original note were not included. RADIATION ONCOLOGY - Weekly On Treatment Visit Note 07/18/21 SHERMAN MOORE MD Radiation Oncology [facility] [phone] (paging continuous still operator) Pager #[phone] PATIENT IDENTIFICATION Name Dominick Castro Date of [...] 45 Gy in 25 fractions Current Dose: 25.2 Gy in 14 fractions INTERVAL HISTORY General Overall feels fair. GI No diarrhea. Nocturia 2x/nt at baseline. Now going 3x/nt. Taking Aleve 1 tab BID, Flomax 1 tab BID for dysuria and weak stream. Pain: Pain score today is 0/10. Prostate Today's Scores 09/28/2020 12/27/2020 Sexual Health Inventory for Men 25 21 (Mild ED) International Prostate Symptom Score 3 ( Mild LUTS) 6 ( Mild LUTS) MEDICATIONS Medications 07/18/21 1146 Medication Sig Taking? naproxen sodium (ANAPROX) 220 [...] approved treatment planning images. EXAM: BP (!) 154/94 Pulse 72 Temp 36.4 ??C (97.5 ??F) Resp 16 Wt 102.2 kg (225 lb 6.4 oz) SpO2 98% BMI 32.45 kg/m?? Constitutional: he appears well-developed and well-nourished. [...] as anticipated. Continue as planned. Next Lupron 07/19 Followup: Return to clinic next week for on treatment check. documented in this encounter Plan of Treatment Upcoming Encounters Date Type Specialty Care Team Description 07/08/2022 Office Visit Radiation Oncology Shelley Kimble, TIME STUDY ENGINEER [facility] RADIATION ONCWARNER [place], [place] [address] (Wo rk) documented as of this encounter Visit Diagnoses Diagnosis Malignant neoplasm of prostate documented in this encounter Care Teams Pilot Boat Operator Relationship Specialty Start Date End Date Grover Herman MD PCP - General Family Medicine 07/19/20 [address] [place] [address] documented as of this encounter
--- OUTSIDE RECORDS SUMMARY | 2022-07-01 13:45 | XMS_ITS | Clinical Summary ---
:1955 Author Organization [facility] [place] [address] Care Team Providers Name Role Phone Grover Herman MD Primary Care Provider Allergies Active Allergy Reactions Severity Noted Date Comments Gluten Protein 05/06/2021 celiac Lactose 05/06/2021 intolerance Medications Medication Sig Dispensed Refills Start Date End Date Status oxyCODONE-acetaminoph 1 tablet every 4 0 08/20/2020 Active en (Percocet) 5-325 hours as needed mg Tablet (hip and shoulder pain ( sometimes takes only 1/2 tab)). tamsulosin (Flomax) Take 1-2 capsules 90 tablet 3 04/25/2021 Active 0.4 mg Capsule by mouth nightly. Per procedure calendar Additional Information Patient taking differently: 0.8 mg Oral NIGHTLY, 2 capsules once a day, Reported on 08/01/2021 amLODIPine (Norvasc) 5 mg Tablet Take 5 mg by mouth daily. 0 01/14/2022 Active Active Problems Problem Noted Date Malignant neoplasm of prostate 09/25/2020 Cancer Staging: Clinical: Stage IIC (cT2 b, cN0, cM0, PSA: 11, Grade Group: 3) - Signed by Sherman Moore MD on 09/25/2020 Obesity (BMI 30.0-34.9) 07/24/2020 Chronic prescription opiate use 07/24/2020 Overview: Per PDMP Jul 24, 2020: Percocet 5/325, # 2 per day prescribed by his PCP. s/p revision L REGGIE 01/12/20 (Dr. Lewis) 01/12/2020 Migraines 09/02/2016 Rotator cuff tear 01/14/2016 Resolved Problems Problem Noted Date Resolved Date History of total right hip arthroplasty 06/26/2020 07/24/2020 Encounters Date Type Specialty Care Team Description 04/30/2022 Orders Only Radiation Oncology Shelley Kimble Malig nant neoplasm of INFORMATICS SCIENTIST prostate (Prima ry Dx) 04/29/2022 Telephone Radiation Oncology Yissel Ashby RN 04/03/2022 Office Visit Radiation Oncology Shelley Kimble Malig nant neoplasm of [employer] SCI[employer] prostate (Prima ry Dx) from Last 3 Months Family History Medical History Relation Comments Leukemia Father ? related to chemica l exposure while in Breast Cancer Sister Deep Vein Thrombosis Neg Hx Diabetes Neg Hx Thrombosis Neg Hx Relation Status Comments Father Sister Alive Social History Tobacco Use Types Packs/Day Years [...] Assigned at Date Recorded Not on file Last Filed Vital Signs Vital Sign Reading [...] Mass Index 31.87 04/03/2022 9:18 AM EDT Plan of Treatment Upcoming Encounters Date Type Specialty Care Team Description 07/08/2022 Office Visit Radiation Oncology Shelley Kimble, INFORMATICS SCIENTIST [facility] RADIATION ONCWARNER [facility] [place] [address] (Wo rk) Health Maintenance Due Date Last Done Comments Covid-19 Vaccine (#1) 05/20/1956 Hepatitis C Screening 1972 Tdap adult 1973 Tetanus vaccine 1973 Colonoscopy 11/18/1999 Zoster vaccine (1 of 2) 2004 Advance Directive 2009 Pneumoccocal Vaccine: 65+ (1 - 11/18/2019 PCV) Influenza (Flu) vaccine (1 of - 05/15/2022 Influenza standard series) Diabetes Screening (HgbA1C or 11/15/2024 11/15/2021, 2021, Glucose) 08/19/2021, Additional history exists Lipid Screening 11/15/2026 11/15/2021 Medical Devices Implanted Type Area Plant Wrapper Device Shelf Model / Identifier Expiration Serial / Date Lot Bone,Crushed,Cancellous,30cc ([id number]) (Autoreq) - [id number] PLANTS Left: FLX Micro - 07/03/2024 PCAN30 / Implanted: Qty: 1 on 01/12/2020 by Jack Lewis MD at [facility] / [id number] Graft Bone Filler [id number] Frozen Chip s Readigraft ([id number]) (Autoreq) - [id number] IMPLANTS Right: FLX Micro - PCAN10 / Implanted: Qty: 1 on 07/26/2020 by Jack Lewis MD at [facility] Hip [employer] / [id number] Insurance Payer Benefit Plan / Subscriber ID Effective Dates Phone Addre ss Type Group SHERLEY RISK SHERLEY [id number] 2015-Pres [phone] [address]MIN [address] [place] [address] MEDICARE MEDICARE PART [id number] 2019-Presen [id number] [place] [phone] CIGNA CIGNA GROUP [id number] 2018-Prese [phone] [address] INS SERVICE nt [address] [facility] [phone] Advance Directives Documents on File Type Date Recorded Patient Top Dyeing Machine Loader Explanati on Personal Top Dyeing Machine Loader 07/18/2020 3:27 PM KD Personal Top Dyeing Machine Loader 01/11/2020 3:33 PM KD Latest Code Status on File Code Status Date Activated Date Inactivated Comments Attempt Cardiopulmonary Resuscitation - 05/06/2021 6:53 AM 021 3:07 PM Inpatient Code Status decision made by: Patient Content of discussion: Patient desires full code. Attempt Cardiopulmonary Resuscitation - 01/07/2021 9:55 AM 021 4:36 PM Inpatient Code Status decision made by: Patient Attempt Cardiopulmonary Resuscitation - 07/26/2020 6:07 PM 07/27 2:43 PM Inpatient Code Status decision made by: Patient Full Code 01/12/2020 11:21 AM 01/13/2020 3:37 PM Does patient have capacity to make decision: Yes Care Teams Hookman Relationship Specialty Start Date End Date Grover Herman MD PCP - General Family Medicine 07/19/20 [address] [place] [address]
--- OUTSIDE RECORDS SUMMARY | 2022-07-01 13:45 | XMS_ITS | Encounter Summary ---
:1955 Author Organization [facility] [address] Care Team Providers Name Role Phone Grover Herman MD Primary Care Provider Encounter Details Date Type Department Care Team Description 09/25/2021 [place] En[place] [facility] [place] of total hip [address] arthroplasty, [place] [address] Social History Tobacco Use Types Packs/Day [...] procedure calendar oxyCODONE-acetaminophen 1 tablet every 4 hours 0 08/20/2020 (Percocet) 5-325 mg as needed (hip and Tablet shoulder pain ( sometimes takes only 1/2 tab)). documented as of this encounter Plan of Treatment Upcoming Encounters Date Type Specialty Care Team Description 07/08/2022 Office Visit Radiation Oncology Shelley Kimble, SHELL GRADER [facility] RADIATION ONCWARNER [place], [place] [address] (Wo rk) documented as of this encounter Procedures Procedure Name Priority Date/Time Associated Diagnosis Comme nts XR PELVIS AND HIP 2 Routine 09/25/2021 2:08 PM History of tota l hip Results for this VIEWS BILATERAL EST arthroplasty, procedure a re in bilateral the results section. documented in this encounter Results XR Pelvis and Hip [...] who have questions please contact the health home health care case manager that requested your imaging first. ? Narrative [...] projected over the prostate gland. Procedure Note Carmen Hess MD - 09/25/2021Formatt ing of this note [...] ho have questions please contact the health home health care case manager that requested your imaging first. Audelia Nuno MD IMG DX ORDERABLES documented in this encounter Visit Diagnoses Diagnosis History of total hip arthroplasty, bilat eral documented in this encounter Care Teams Rebrander Relationship Specialty Start Date End Date Grover Herman MD PCP - General Family Medicine 07/19/20 [address] [place] [address] documented as of this encounter
--- OUTSIDE RECORDS SUMMARY | 2022-07-01 13:45 | XMS_ITS | Encounter Summary ---
:1955 Author Organization [place] [address] Care Team Providers Name Role Phone Grover Herman MD Primary Care Provider Encounter Details Date Type Department Care Team Description 04/25/2021 Clinical Support [place] [address] Social History Tobacco Use Types Packs/Day [...] Sign Reading Time Taken Comments Blood Pressure 144/87 04/25/2021 12:10 PM EDT Pulse 75 04/25/2021 11:55 AM EDT Temperature - - Respiratory Rate - - Oxygen Saturation 98% 04/25/2021 11:55 AM EDT Inhaled Oxygen Concentration - - Weight 102.5 kg (226 lb) 04/25/2021 11:39 AM EDT Height 180.3 cm (5' 11) 04/25/2021 11:39 AM EDT Body Mass Index 31.52 04/25/2021 11:39 AM EDT documented in this encounter Progress Notes Khoa García, RN - 04/25/2021 12:00 PM EDT PAT questionnaire reviewed with patient while in Pre Admission testing. Pre- operative instruction booklet reviewed. Patient verbalizes a good understanding of all information reviewed. Reviewed importance of pain control and cough and deep breathing exercise during the post-operative period. Pre Surgery Covid screening: Were you diagnosed with COVID 19 or had symptoms consistent with COVID 19 within the last 3 months? No PLAN: Testing: Special medication instructions: Follow surgeons preop instructions. Procedure date: 05.06.[address] Flynn documented in this encounter Plan of Treatment Upcoming Encounters Date Type Specialty Care Team Description 07/08/2022 Office Visit Radiation Oncology Shelley Kimble, NEWSPAPER DELIVERER [facility] RADIATION ONCWARNER [place], [place] [address] (Wo rk) documented as of this encounter Visit Diagnoses Not on filedocumented in this encounter Care Teams Quill Stripper Relationship Specialty Start Date End Date Grover Herman MD PCP - General Family Medicine 07/19/20 [address] [place] [address] documented as of this encounter
--- OUTSIDE RECORDS SUMMARY | 2022-07-01 13:45 | XMS_ITS | Encounter Summary ---
:1955 Author Organization [facility] [place] [address] Care Team Providers Name Role Phone Grover Herman MD Primary Care Provider Encounter Details Date Type Department Care Team Description 05/10/2021 Telephone Radiation Oncology a erika [facility] [place] [place] [address] Social History Tobacco Use Types Packs/Day [...] 07/08/2022 Office Visit Radiation Oncology Shelley Kimble, TAKER OUT [facility] RADIATION ONCWARNER [place], [place] [address] (Wo rk) documented as of this encounter Visit Diagnoses Not on filedocumented in this encounter Care Teams Operations Agent Relationship Specialty Start Date End Date Grover Herman MD PCP - General Family Medicine 07/19/20 [address] [place] [address] documented as of this encounter
--- OUTSIDE RECORDS SUMMARY | 2022-07-01 13:45 | XMS_ITS | Encounter Summary ---
:1955 Author Organization [facility] [place] [address] Care Team Providers Name Role Phone Grover Herman MD Primary Care Provider Reason for Visit Auth/Cert Specialty Diagnoses / Procedures Referred By Contact Refer red To Contact Diagnoses PROSTATE CA Procedures PRO PERCUT/NEEDLE INSERT, PROSTATE, RADIOISOT PROSTATE SEED IMPLANT PROCEDURE (WRVU 13.46) Referral ID Status Reason Start Date Expiration Date Visits Requ ested Visits Authorized [id number] 1 1 Encounter Details Date Type Department Care Team Description 05/06/2021 [facility] [place] [address] [place] [address] [phone] Social History Tobacco Use Types Packs/Day Years [...] Sign Reading Time Taken Comments Blood Pressure 150/77 05/06/2021 2:30 PM EDT Pulse 51 05/06/2021 2:30 PM EDT Temperature 36.4 ??C (97.5 ??F) 05/06/2021 2:00 PM EDT Respiratory Rate 14 05/06/2021 2:30 PM EDT Oxygen Saturation 95% 05/06/2021 2:30 PM EDT Inhaled Oxygen Concentration - - Weight [...] type of radiation therapy is brachytherapy (say fieo-iis-HBUTE-uh-louiee). It puts the radiation source into your [...] a specific side effect. If you have geyh-quvk-uzad treatments, you may need to stay in [...] your doctor if you can take an kruk-bvz-dpeodby medicine. Ice ? Put ice or a [...] Where can you learn more? Visit our [employer] information library at [email or web address] You can also view health information on [employer], your personal patient account. Log in or sign up today. Enter B120 in the search box to learn more about Internal Radiation Therapy (Brachytherapy) For Prostate Cancer: What to Expect at Home. Current as of: August 30, 2020?Content Version: 12.9 ?? [id number] [employer]. Care instructions adapted under license by [facility]. If you have questions about a medical condition or this instruction, always ask your healthcare professional. [employer] disclaims any warranty or liability for your [...] 11.47) performed by Ramy Porter MD at [facility] OR ??? PRO REVISE TOTAL HIP REPLACEMENT Left 01/12/2020 ?? @TOTAL HIP REVISION ARTHROPLASTY, COMPLETE (WRVU 30.28) performed by Jack Lewis MD at [facility] OR ??? PRO REVISE TOTAL HIP REPLACEMENT Right 07/26/2020 ?? @TOTAL HIP REVISION ARTHROPLASTY, COMPLETE (WRVU 30.28) performed by Jack Lewis MD at [facility] OR ??? PROSTATE BIOPSY ?? 07/17/21 ?? at [facility] ?? Patient Active Problem List Diagnosis Code [...] patient is not nervous/anxious. 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 [facility] Unclear explanation for this- has been [...] after the brachytherapy with Dr. Moore in [facility] and follow up will be in [facility]. ? Marlen Harper and his had [...] other health professionals __ other: ? Lynda A. DiStasio, DNP, ANP, VISITOR SERVICES REPRESENTATIVE, AOCNP Nurse Practitioner Radiation Oncology documented in this encounter Miscellaneous Notes Op Note - Harriett Ruelas MD - 05/06/2021 8:45 AM EDT [facility] [place] Patient Name: Marlen Harper : [id number] MR#: [id number] Case Date: 05/06/2021 Surgeon: Surgeon(s) and Role: [...] reached with the stent grasper. A 5 Armenian Pollack catheter was placed through the rigid [...] Flynn MD - 05/06/2021 8:45 AM EDT [facility] [place] Patient Name: Marlen Harper : [id number] MR#: [id number] Case Date: 05/06/2021 Surgeon: Surgeon(s) and Role: [...] was confirmed using fluoroscopy, ultrasound, and the Mzinga localization system. Further 2needles were used to add 2 additional seeds to improve overall homogeneity of seed distribution in the prostate. Following deposition of the seeds the stabilizer needles were removed. ?? Thereafter, SpaceOAR hydrogel was prepared as per finisher tailor apprentice's recommendations. Hydrodissection ofconnective tissue stroma between prostate [...] Visit Radiation Oncology Shelley Kimble APRN [facility] RADIATION ONCWARNER [place], [place] [address] (Wo rk) documented as of [...] Organization Address City/State/ZIP Code Phon e Number [place], [place] documented in this encounter Visit Diagnoses Not on filedocumented in this encounter Administered Medications Inactive Administered [...] ordered pain medications are indicated. , Routine documented in this encounter Active and Recently Administered Medications Times are shown in EDT. Scheduled Medication Order 05/04/2021 05/05/2021 05/06/2021 acetaminophen (Tylenol) tablet 1,000 mg (COMPLETED) 713 (Given - Provider: Catherine Guevara, CHAZ) 1,000 mg, Oral, ONCE, 1 dose, On [...] Routine documented in this encounter Care Teams Hand Striper Relationship Specialty Start Date End Date Grover Herman MD PCP - General Family Medicine 07/19/20 [address] [place] [address] documented as of this encounter
--- OUTSIDE RECORDS SUMMARY | 2022-07-01 13:45 | XMS_ITS | Encounter Summary ---
:1955 Author Organization [facility] [address] Care Team Providers Name Role Phone Grover Herman MD Primary Care Provider Encounter Details Date Type Department Care Team Description 08/02/2021 Notes [facility] [address] RADIATION ONCOLOGY [place], [place] [address] [address] [place] [address] [phone] (Wo rk) Social History Tobacco Use Types [...] on file documented as of this encounter Progress Notes Og Flynn MD - 08/02/2021 10:45 AM EST COMPLETION OF TREATMENT PROVIDERS: MD Sherman Gould MD REFERRING PROVIDER: José Luis Rodriguez MD PRIMARY CARE PROVIDER: Grover Herman MD DIAGNOSIS: Dominick Castro is a 65 y.o. gentleman with unfavorable intermediate-risk prostate cancer (cT2b, Gl 4+3, PSA 11).??Clinical stage IIC.?Staging mpMRI 09/27/20 showed a 57 cc gland with PI-RADs 5 lesionin right PZ with curvilinear contact along gland edge. No clear ELIO. RADIATION PLAN: Curative. He is planned for combination Cs-131 seed implant (prostate boost) and EBRT (larger field pelvic treatment), along with a total of one year of ADT. Lupron started 01/14/21. He has continued on monthly Lupron injections delivered in [facility]. Implant was performed under care of Dr. Flynn at [facility]. EBRT portion of therapy was delivered under care of Dr. Moore in [facility]. DETAILS OF RADIOTHERAPY: 1. Target Volume: Cs-131 implant -- Prostate only [id number] -- Prostate, SVs, and nodes 2. Total Dose: 49465 cGy Cs-131 implant -- 8500 cGy [id number] -- 4500 cGy in 25 fractions 3. Fractional Dose: Cs-131 implant -- 8500 cGy (single administration) [id number] -- 180 cGy 4. Treatment Technique: Cs-131 implant -- LDR seed brachy implant [id number] -- IMRT/IGRT/VMAT 5. Energy: Cs-131 implant -- Cs-131 [id number] -- 10 MV photons 6. Dates of Therapy: Cs-131 implant -- 05/06/21 [id number] -- 07/01/21 thru 08/02/21 7. Treatment Interruptions: None 8. Total Treatment Time: From implant through end of EBRT: 88 days EBRT portion only: 32 days TREATMENT TOLERANCE AND OUTCOME: Mr. Castro tolerated these intensive treatments very well overall. Following the implant, he developed increased nocturia (4-5 times nightly), but this had improved with a month after the procedure, well-managed with two capsules Flomax nightly. Bowel movements remained well-formed, though somewhat increased in frequency (4-6 times daily). During the course of his EBRT he developed worsening urinary force of stream, only partially alleviated with Flomax, Aleve, and (eventually) a short course of dexamethasone. He declined intermittent self-catheterization. RADIATION FOLLOW-UP: Plan to continue ADT for total of 12 months. Most recent Lupron (7.5 mg) was delivered 07/19/21. Nextis due on or after 08/16/21. ADT planned to conclude beginning of January 2022. He will be seen in clinic in [place] at that time, with blood work to be performed prior to the Lupron injection. If blood work is acceptable, plan will be to administer a shot of 3-months' duration. documented in this encounter Plan of Treatment Upcoming Encounters Date Type Specialty Care Team Description 07/08/2022 Office Visit Radiation Oncology Shelley Kimble APRN [facility] RAD[facility]ATION ONCWARNER [facility], [place] [address] (Wo rk) documented as of this encounter Results (ABNORMAL) Testosterone, total (08/19/2021 2:53 PM EST) athologist Signature Testo Total <0.03 (L) 1.93 - PA JONES 7.40 ng/mL [facility] Comment: Pediatric Reference Ranges: ? Males [...] (Source) Location / / Volume Laterality Blood 08/19/2021 2:53 PM 1 3:27 EST PM EST Resulting Agency Comment Spec In Lab Og Flynn MD CHEMISTRY ORDERABLES Performing Organization Address City/[facility] [place] [address] PSA (Ultrasensitive) (08/19/2021 2:53 PM EST) athologist [facility] PSA Total 0.28 0.00 - [facility] (Ultrasensitiv 4.00 ng/mL [facility] Comment: PLEASE NOTE: The above reference interva l is intended for healthy males with an intact prostate. Values within this refe rence interval may indicate recurrence in men who have undergone radical prosta tectomy. Specimen Anatomical Collection Method Collection Time Receive d Time (Source) Location / / Volume Laterality Blood 08/19/2021 2:53 PM 1 3:27 EST PM EST Resulting Agency Comment Spec In Lab Og Flynn MD CHEMISTRY ORDERABLES Performing Organization Address [facility] [place] [address] (ABNORMAL) Comprehensive metabolic panel (non-fasting) (08/19/2021 2:53 PM EST) athologist Signature Glucose Lvl 96 65 - 199 [facility] mg/dL [facility] Comment: Diabetes: >=200 mg/dL plus symp toms BUN 17 10 - 20 mg/dL [facility] Creatinine 0.77 (L) 0.80 - 1.50 mg/dL [facility] Sodium 142 135 - 145 mmol/L [facility] Potassium 3.9 3.5 - 5.0 mmol/L [facility] Comment: Please note: ??Patients with WBC >100,00 0 may have falsely elevated Potassium levels. ??For accurate Potassium quantif ication in these patients send serum separator tube (gold top) for subsequent determinations. ??Contact the Clinical Chemistry Laboratory if there are any qu estions. Chloride 105 98 - 107 mmol/L [facility] CO2 24 22 - 31 mmol/L [facility] Anion Gap 13 5 - 15 mmol/L [facility] Calcium 9.7 8.5 - 10.5 mg/dL [facility] Total Protein 7.1 6.1 - 8.0 g/dL [facility] Albumin 4.4 3.2 - 5.2 g/dL [facility] AST 458 (H) 0 - 39 unit/L [facility] ALT 750 (H) 0 - 55 unit/L [facility] Alk Phos 119 40 - 130 unit/L [facility] Total Bilirubin 0.7 0.2 - 1.3 mg/dL [facility] Estimated GFR 95 >=60 mL/min/1.73 m?? [facility] Comment: This patient? s estimated [...] (Source) Location / / Volume Laterality Blood 08/19/2021 2:53 PM 3:27 EST PM EST Resulting Agency Comment Spec In Lab Og Flynn MD CHEMISTRY ORDERABLES Performing Organization Address City/State/[place] [address] documented in this encounter Visit Diagnoses Diagnosis Malignant neoplasm of prostate documented in this encounter Care Teams Health Type Technician Relationship Specialty Start Date End Date Grover Herman MD PCP - General Family Medicine 07/19/20 [address] [place] [address] documented as of this encounter
--- OUTSIDE RECORDS SUMMARY | 2022-07-01 13:45 | XMS_ITS | Encounter Summary ---
:1955 Author Organization [facility] [place] [address] Care Team Providers Name Role Phone Grover Herman MD Primary Care Provider Encounter Details Date Type Department Care Team Description 07/04/2021 [facility] prostate [address] [place], [place] RADIATION ONCOL [place] [address] [place], [place] [phone] (Wo rk) Social History Tobacco Use Types [...] Sign Reading Time Taken Comments Blood Pressure 157/81 07/04/2021 11:00 AM EDT Pulse 73 07/04/2021 11:00 AM EDT Temperature 36.8 ??C (98.2 ??F) 07/04/2021 11:00 AM EDT Respiratory Rate 18 07/04/2021 11:00 AM EDT Oxygen Saturation 98% 07/04/2021 11:00 AM EDT Inhaled Oxygen Concentration - - Weight 102.2 kg (225 lb 3.2 oz) 07/04/2021 11:00 AM EDT Height - - Body Mass Index 32.42 05/22/2021 8:58 AM EDT documented in this encounter Progress Notes Sherman Moore MD - 07/04/2021 11:00 AM EDT Images from the original note were not included. RADIATION ONCOLOGY - Weekly On Treatment Visit Note 07/04/21 SHERMAN MOORE MD Radiation Oncology [facility] [phone] (paging cloth finishing range operator chief) Pager #[phone] PATIENT IDENTIFICATION Name Dominick Castro Date of [...] 45 Gy in 25 fractions Current Dose: 7.2 Gy in 4 fractions INTERVAL HISTORY General No changes since last seen. Started this week. GI No diarrhea. Nocturia 2x/nt at baseline. Baseline IPSS history is listed below. He had some dysuria following the implant and was taking Aleve, since resolved. Taking flomax 0.4mg BID. Pain: Pain score today is 0/10. Prostate Today's Scores 09/28/2020 12/27/2020 Sexual Health Inventory for Men 25 21 (Mild ED) International Prostate Symptom Score 3 ( Mild LUTS) 6 ( Mild LUTS) MEDICATIONS Medications 07/04/21 1106 Medication Sig Taking? tamsulosin (Flomax) 0.4 mg Capsule Take 1-2 capsules by mouth nightly. Per procedure calendar Patient taking differently: Take 0.8 mg by mouth nightly. Per procedure calendar Yes oxyCODONE-acetaminophen (Percocet) 5-325 mg Tablet 1 tablet every 4 hours as needed (hip and shoulder pain). Yes IMAGING I have personally reviewed this patient's interval portal imaging to confirm accurate positioning and alignment which matches the patient's original approved treatment planning images. EXAM: BP 157/81 Pulse 73 Temp 36.8 ??C (98.2 ??F) Resp 18 Wt 102.2 kg (225 lb 3.2 oz) SpO2 98% BMI 32.42 kg/m?? Constitutional: he appears well-developed and well-nourished. [...] as anticipated. Continue as planned. Next Lupron due week of 07/14. Followup: Return to clinic next week for on treatment check. documented in this encounter Plan of Treatment Upcoming Encounters Date Type Specialty Care Team Description 07/08/2022 Office Visit Radiation Oncology Shelley Kimble, DESIGN MAKER [facility] RADIATION ONCOLO [place], [place] [address] (Wo rk) documented as of this encounter Visit Diagnoses Diagnosis Malignant neoplasm of prostate documented in this encounter Care Teams Perfect Binder Setter Relationship Specialty Start Date End Date Grover Herman MD PCP - General Family Medicine 07/19/20 [address] [place] [address] documented as of this encounter
--- OUTSIDE RECORDS SUMMARY | 2022-07-01 13:45 | XMS_ITS | Encounter Summary ---
:1955 Author Organization [facility] [place] [address] Care Team Providers Name Role Phone Grover Herman MD Primary Care Provider Encounter Details Date Type Department Care Team Description 04/25/2021 Office Visit Radiation Oncology at [place], Terry Chu alignant neoplasm of [facility] prostate [facility] [address] [place] RADIATION [place]COLO [place] [address] [place] [address] [phone] Social History Tobacco Use Types Packs/Day Years [...] on file documented as of this encounter Patient Instructions Patient InstructionsChelsey Cloud RN - 04/25/2021 3:30 PM EDT PATIENT INFORMATION PROSTATE SEED IMPLANT GENERAL INSTRUCTIONS The week before prostate seeds are placed, you will need a visit with the Radiation Oncologist for apre-surgery physical, consent and instructions. On this day, you will also be directed to Pre-admission testing. You will be seen by a practitioner, get paperwork in order, receive instructions for theday of the procedure, have blood drawn, and possibly have a chest X-ray or EKG study. Pre-Surgery Instructions: 1. You will receive a prescription for medication to help empty your bladder. This medication, (Flomax 0.4 mg) should be taken daily in the evening. Start taking this as soon as possible. Expect to continue taking Flomax for 1- 3 months after your implant. 2. You will also receive a prescription for an anti-inflammatory (steroid) medication. You should start taking this on the Thursday before your OR date. Please follow the directions on your prescription bottle. 3. Do not take any aspirin-containing or aspirin-like drugs (see accompanying pamphlet) for one weekprior to your implant. Use only plain, zsyr-esq-lrvorhl acetaminophen (Tylenol). If you are unsure whether a medication contains aspirin, consult your local pharmacist. 4. Do not take the following herbs for one week prior to your implant: Rodrigo???s Wort, Ginseng, Garlic, or Ginkgo Biloba. The Implant: 1. The evening before the implant, give yourself a Fleets enema to thoroughly clean out your lower bowel. DO NOT EAT OR DRINK ANYTHING AFTER MIDNIGHT. 2. Please give yourself a second Fleets enema before leaving home on the morning of your implant. 3. On the day of your surgery, do NOT take the steroid medication Decadron (Dexamethasone). You willbe given a dose in the OR on that day. Continue the taking on the day after. Please follow the directions on the medication container. 4. Please make arrangements for someone to drive you home from the [facility] on the day of yourimplant. Do not drive for at least two days after the implant. If you have further questions or concerns, call Radiation Oncology at [phone]. Sun Thu Flomax 0.4 mg at bedtime Flomax 0.4 mg at bedtime Hold all blood thinning meds. Flomax 0.4 mg at bedtime Flomax 0.4 mg at bedtime Flomax 0.4 mg at bedtime Flomax 0.4 mg at bedtime Dexamethasone 4mg in AM & PM Flomax 0.4 mg at bedtime Dexamethasone 4mg in AM & PM Flomax 0.4 mg at bedtime Implant Hold dexamsethasone Flomax 0.4 mg at bedtime Dexamethasone 4mg in AM & PM Levaquin 500 mg in am Flomax 0.4 mg at bedtime Dexamethasone 4mg in AM & PM Levaquin 500 mg in am Flomax 0.4 mg at bedtime Dexamethasone 4mg in AM & PM Levaquin 500 mg in am Flomax 0.4 mg at bedtime Dexamethasone 4mg in AM & PM Levaquin 500 mg in am Flomax 0.4 mg at bedtime Dexamethasone 4mg in AM & PM Levaquin 500 mg in am Flomax 0.4 mg at bedtime Dexamethasone 4mg in AM & PM Levaquin 500 mg in am Flomax 0.4 mg at bedtime Dexamethasone 4mg in AM & PM Levaquin 500 mg in am (last dose) Flomax 0.4 mg at bedtime Dexamethasone 4mg in AM & PM Flomax 0.4 mg at bedtime Dexamethasone 4mg in AM & PM Flomax 0.4 mg at bedtime Dexamethasone 4mg in AM & PM Flomax 0.4 mg at bedtime Dexamethasone 4mg in AM & PM Flomax 0.4 mg at bedtime Dexamethasone 4mg in AM & PM Flomax 0.4 mg at bedtime Dexamethasone 2 mg in AM & PM Flomax 0.4 mg at bedtime Dexamethasone 2 mg in AM & PM Flomax 0.4 mg at bedtime Dexamethasone 2 mg in AM & PM Flomax 0.4 mg at bedtime Dexamethasone 2 mg in AM & PM Flomax 0.4 mg at bedtime Dexamethasone 2 mg in AM & PM Flomax 0.4 mg at bedtime Dexamethasone 2 mg in AM & PM Flomax 0.4 mg at bedtime Dexamethasone 2 mg in AM & PM Flomax 0.4 mg at bedtime Dexamethasone 2 mg Once in AM Flomax 0.4 mg at bedtime Dexamethasone 2 mg Once in AM Continue Flomax as directed Dexamethasone 2 mg Once in AM Dexamethasone 2 mg Once in AM Dexamethasone 2 mg Once in AM Dexamethasone 2 mg Once in AM Dexamethasone 2 mg Once in AM (Final dose of dexamethasone) documented in this encounter Progress Notes Chelsey Cloud RN - 04/25/2021 3:30 PM EDT PATIENT INFORMATION PROSTATE SEED IMPLANT DISCHARGE INSTRUCTIONS I. Daily Activities: 1. No driving or heavy lifting for at least two days after the implant. 2. No bike riding, horseback riding, snowmobiling or riding lawn mowers for the first month after the implant. 3. Any strenuous physical activity should be approved by your physician before resuming. II. Antibiotics: You will be given a prescription for an antibiotic to take when you arrive home. As is the case withall antibiotics, be sure to take every tablet in the bottle, even if you are feeling better before the prescription is finished. However, if you develop a rash, itching, or swelling on your trunk, arms, legs and/or throat, immediately stop taking the antibiotic and call your Radiation Oncologist. III. Diet: Resume your usual diet with modifications per diet handout. To keep your bowels moving easily, take a stool softener such as Colace which is available without prescription at local pharmacies. IV. Sexual Relations: Sexual intercourse may be resumed anytime when you feel ready for it. A condom should be used for the first month after the implant because a seed may be passed in the ejaculate. Your semen may be darkbrown or black; this is normal and is related to bleeding that may have occurred during the implant. V. Postoperative Swelling: Expect swelling and bruising of the scrotum and perineum (the area between the scrotum and anus.) Both the swelling and the bruising should resolve in 1 to 2 weeks. Ice packs and pdik-nan-gazkwnw medications such as acetaminophen or ibuprofen may decrease your discomfort. . Postoperative Urination: After the implant it is very unlikely that you will pass a seed in your urine. However, as a precaution, for the first week after your implant, strain all urine through the strainer in your discharge kit. The seeds are silver in color and are about as large as a grain of rice. In the unlikely event that you see a seed, follow the instructions in your discharge kit. Retrieve the seed with the tweezersin your kit, and place into the container provided. Return the seed to your Radiation Oncologist as soon as it???s convenient for you to do so. VII. Immediate Side Effects: After the implant, many men experience burning and pressure on urination, urinating more frequently and feeling unable to pass urine freely. Contact your Radiation Oncologist so that medication can be prescribed to relieve these side effects. You are also likely to see blood and possibly clots in your urine for the first few days after the implant. In order to prevent clots, please drink plenty of water which will flush the bladder. If visible blood and clots persist, or you are having difficulty urinating, please call your Radiation Oncologist. It is also possible that at some time over the first month, you will be unable to void. If this occurs, you will need to have a catheter inserted for a short time. The catheter will be discontinued when swelling in the prostate has subsided and free urination is possible again. Contact Your Doctor For: 1. Temperature greater that 101 F 2. Increasing pain 3. Inability to urinate VIII. Follow-Up: One month after the implant, you will return for a follow-up appointment with your Radiation Oncologist. We will obtain a CT scan of your prostate in order to help calculate the dose you have received from the implant. At that time we will review your symptoms and discuss your overall condition. We will discuss the plan for further follow up at this appointment. IX. Later Side Effects: Frequent urination, burning with urination, a sense of urgency and a weaker urinary stream may persist for many months. These side effects are due to the radiation that is slowly released from the seeds which causes the prostate to swell and become irritated. Drinking plenty of fluids and avoiding caffeine- containing beverages may help to relieve these symptoms. If they are bothersome, medication from your doctor may be helpful. Some men can lose their erections months to years after the seed implant. This results from the effect of radiation on nerves blood vessels in the vicinity of the prostate.Should it occur, we have many new techniques for restoring erections and these will be offered to you. Care is taken to place the seeds away from the rectum. Nevertheless, some radiation may reach the rectum and give patients a sense that they need to move their bowels more frequently. This feeling subsides in one to four months and medication is not usually required. Should the symptoms persist or should bleeding occur from the rectum, you should consult your physician. X. Radiation Safety: Cesium-131, Palladium-103 and Iodine-125 are low energy radioactive materials. They are not deeply penetrating and lose energy at short distances so that almost the entire dose is contained in the prostate gland. Tiny and probably trivial amounts of the radiation may nevertheless be detected beyond the body. Objects that are touched or used by you do not become radioactive. Body wastes (urine and stool) or body fluids (saliva, tears, semen or blood) are not radioactive. The Nuclear Regulatory Commission (NRC) has determined that no radiation precautions are needed for patients undergoing radioactive seed implantation with Palladium-103 or Iodine-125. The NRC states that such patients do not present a risk to the people around them, including young children and women. However, in keeping with the general principle that radiation exposure should be kept as low as reasonably possible, we suggest the followin. Children should not sit on the patient???s lap for the first month after the implant. 2. (or possibly ) women should avoid prolonged close contact with the patient for the first month after the implant. As long as there are several feet between you, there is no limit tohow long she can be in the same room. 3. At a distance of several feet, there is no limit to the length of time anyone can be with the patient. 4. After one month, no further precautions are necessary. If you have any further questions, please call the Department of Radiation Oncology at [phone] Og Flynn MD - 04/25/2021 3:30 PM EDT Patient presents for discussion of informed consent for planned upcoming procedures: - Cs-131 brachytherapy seed implant of the prostate, to be followed by EBRT to prostate/SVs/nodes, - placement of SpaceOAR gel in prostate-rectal interface, and - cystoscopy with possible foreign body removal under the care of urology. Benefits and risks of all procedures were reviewed. Informed consent was obtained. documented in this encounter Plan of Treatment Upcoming Encounters Date Type Specialty Care Team Description 07/08/2022 Office Visit Radiation Oncology Lamin, Shelley M, AIRBRUSH ARTIST PHOTOGRAPHY [facility] RAD[facility]ER [facility] [place] [address] (Wo rk) documented as of this encounter Visit Diagnoses Diagnosis Malignant neoplasm of prostate documented in this encounter Care Teams Band Tier Relationship Specialty Start Date End Date Grover Herman MD PCP - General Family Medicine 07/19/20 [address] [place] [address] documented as of this encounter
--- OUTSIDE RECORDS SUMMARY | 2022-07-01 13:45 | XMS_ITS | Encounter Summary ---
:1955 Author Organization [facility] [place] [address] Care Team Providers Name Role Phone Grover Herman MD Primary Care Provider Encounter Details Date Type Department Care Team Description 08/20/2021 Ancillary Procedure Radiology Library at Joe Herman MD [facility] [address] [place] [address] [facility] [phone] [place] [address] (Work) [phone] Social History Tobacco Use Types Packs/Day Years [...] 07/08/2022 Office Visit Radiation Oncology Shelley Kimble, TRAUMA PROGRAM MANAGER [facility] RADIATION [place], [place] [address] (Wo rk) documented as of this encounter Procedures Procedure Name Priority Date/Time Associated Diagnosis Comme nts FILM LIBRARY Routine 08/20/2021 12:00 AM Results for this STORAGE ONLY CT EST procedure ar e in ABDOMEN AND PELVIS the resul ts section. documented in this encounter Results Film Library- Storage Only CT Abdomen & Pelvis (08/20/2021 12:00 AM EST) Specimen (Source) Anatomical Location Collection Method / Collectio n Time Received Time / Laterality Volume Narrative RAD - 08/21/2021 10:08 AM EST This exam is auto-finalizing. It's purpo se is for storage only. Grover Herman MD [employer] FILM LIBRARY ORDERABLES Performing Organization Address City/State/ZIP Code Phon e Number [place], [place] documented in this encounter Visit Diagnoses Not on filedocumented in this encounter Care Teams Interactive Video Technician Relationship Specialty Start Date End Date Grover Herman MD PCP - General Family Medicine 07/19/20 [address] [place] [address] documented as of this encounter
--- OUTSIDE RECORDS SUMMARY | 2022-07-01 13:45 | XMS_ITS | Encounter Summary ---
:1955 Author Organization [facility] [address] Care Team Providers Name Role Phone Grover Herman MD Primary Care Provider Encounter Details Date Type Department Care Team Description 08/12/2021 Telephone Radiation Oncology a erika [facility] [place] [address] Social History Tobacco Use Types Packs/Day [...] 07/08/2022 Office Visit Radiation Oncology Shelley Kimble, AIRCRAFT PILOT [facility] RADIATION ONCWARN[place], [place] [address] (Wo rk) documented as of this encounter Visit Diagnoses Not on filedocumented in this encounter Care Teams Grain Commodity Manager Relationship Specialty Start Date End Date Grover Herman MD PCP - General Family Medicine 07/19/20 [address] [place] [address] documented as of this encounter
--- OUTSIDE RECORDS SUMMARY | 2022-07-01 13:45 | XMS_ITS | Encounter Summary ---
:1955 Author Organization [facility] [place] [address] Care Team Providers Name Role Phone Grover Herman MD Primary Care Provider Encounter Details Date Type Department Care Team Description 08/01/2021 [facility] prostate [address] [place], [place] RADIATION ONCOL OGY [address] [place], [place] [phone] (Wo rk) Social History Tobacco Use Types [...] Sign Reading Time Taken Comments Blood Pressure 162/77 08/01/2021 10:00 AM EST Pulse 60 08/01/2021 10:00 AM EST Temperature 36.4 ??C (97.6 ??F) 08/01/2021 10:00 AM EST Respiratory Rate 20 08/01/2021 10:00 AM EST Oxygen Saturation 99% 08/01/2021 10:00 AM EST Inhaled Oxygen Concentration - - Weight 102.5 kg (226 lb) 08/01/2021 10:00 AM EST Height - - Body Mass Index 32.54 05/22/2021 8:58 AM EDT documented in this encounter Progress Notes Sherman Moore MD - 08/01/2021 10:45 AM EST Images from the original note were not included. RADIATION ONCOLOGY - Weekly On Treatment Visit Note 08/01/21 SHERMAN MOORE MD Radiation Oncology [facility] [phone] (paging roll forming machine set up operator) Pager #[phone] PATIENT IDENTIFICATION Name Dominick Castro Date of [...] 06/21/2021 leuprolide (Lupron Depot) IM 7.5 mg ONCBCN ONCOLOGY (AMB) 07/19/2021 leuprolide (Lupron Depot) IM 7.5 mg INTENT OF THERAPY: Definitive (Curative) RADIATION TREATMENT DETAILS: Initial Treatment Site Pelvis, Entire SV and Prostate Prescribed Dose 45 Gy in 25 fractions Current Dose: 43.2 Gy in 24 fractions INTERVAL HISTORY General Overall feels fair. GI BM more frequent than usual but this is because he is straining to urinate. Nocturia 2x/nt at baseline. Now going 3-4x/nt, last night he was up 6x but was in bed longer than usual. Stream remains very weak. 5 days course of decadron 4mg was unhelpful. Taking 2 flomax mid-day, Aleve 1 tab BID for dysuria and weak stream. He has not felt that ISC is necessary. Pain: Pain score today is 0/10. Prostate Today's Scores 09/28/2020 12/27/2020 Sexual Health Inventory for Men 25 21 (Mild ED) International Prostate Symptom Score 3 ( Mild LUTS) 6 ( Mild LUTS) MEDICATIONS Medications 07/25/21 1003 Medication Sig Taking? naproxen sodium (ANAPROX) 220 mg Tablet Take 220 mg by mouth 2 times daily (with meals). To keep urinary steam from becoming weak Yes tamsulosin (Flomax) 0.4 mg Capsule Take 1-2 capsules by mouth nightly. Per procedure calendar Patient taking differently: Take 0.8 mg by mouth nightly. 2 capsules once a day Yes oxyCODONE-acetaminophen (Percocet) 5-325 mg Tablet 1 tablet every 4 hours as needed (hip and shoulder pain ( sometimes takes only 1/2 tab)). Yes dexamethasone (Decadron) 4 mg Tablet Take 1 tablet by mouth daily (after breakfast). Patient not taking: Reported on 08/01/2021 omeprazole (PriLOSEC) 40 mg Capsule, Delayed Release(E.C.) Take 1 tablet daily 30 mins before breakfast. Take for 5 days while on dexamethasone to prevent upset stomach. Patient not taking: Reported on 08/01/2021 IMAGING I have personally reviewed this patient's interval portal imaging to confirm accurate positioning and alignment which matches the patient's original approved treatment planning images. EXAM: BP 162/77 Pulse 60 Temp 36.4 ??C (97.6 ??F) Resp 20 Wt 102.5 kg (226 lb) SpO2 99% BMI 32.54 kg/m?? Constitutional: he appears well-developed and well-nourished. [...] chair IMPRESSION/PLAN Tolerance to radiotherapy/ADT: Tolerating as anticipated but with significant LUTS. Continue as planned; completes tomorrow. Next / final Lupron due week of 08/11. LUTS ISC supplies provided in case of emergency. Followup: Return to clinic as needed. Ongoing f/u per Dr. Flynn. (notified via the EMR). Emergency contact info provided. documented in this encounter Plan of Treatment Upcoming Encounters Date Type Specialty Care Team Description 07/08/2022 Office Visit Radiation Oncology Shelley Kimble, DIRECTOR OF ASSESSING [facility] RADIATION ONCWARNER [place], [place] [address] (Wo rk) documented as of this encounter Visit Diagnoses Diagnosis Malignant neoplasm of prostate documented in this encounter Care Teams Histology Specialist Relationship Specialty Start Date End Date Grover Herman MD PCP - General Family Medicine 07/19/20 [address] [place] [address] documented as of this encounter
--- OUTSIDE RECORDS SUMMARY | 2022-07-01 13:45 | XMS_ITS | Encounter Summary ---
:1955 Author Organization [facility] [place] [address] Care Team Providers Name Role Phone Grover Herman MD Primary Care Provider Encounter Details Date Type Department Care Team Description 11/15/2021 Travel Social History Tobacco Use Types Packs/Day Years [...] Office Visit Radiation Oncology Shelley Kimble, [facility] RADIATION ONCWARNER [place], [place] [address] (Wo rk) documented as of this encounter Visit Diagnoses Not on filedocumented in this encounter Care Teams Senior Research Consultant Relationship Specialty Start Date End Date Grover Herman MD PCP - General Family Medicine 07/19/20 [address] [place] [address] documented as of this encounter
--- OUTSIDE RECORDS SUMMARY | 2022-07-01 13:45 | XMS_ITS | Encounter Summary ---
:1955 Author Organization [facility] [place] [address] Care Team Providers Name Role Phone Grover Herman MD Primary Care Provider Encounter Details Date Type Department Care Team Description 08/19/2021 [facility] CARVER AND CHECKERER SPECIALS prostate (Primary Dx) Pending sale to [facility] [address] [place] RADIATION ONCOL[place] [address] [place] [address] [phone] Social History Tobacco Use Types Packs/Day Years [...] Sign Reading Time Taken Comments Blood Pressure 148/90 08/19/2021 4:03 PM EST Pulse 65 08/19/2021 4:03 PM EST Temperature 36.2 ??C (97.1 ??F) 08/19/2021 4:03 PM EST Respiratory Rate 18 08/19/2021 4:03 PM EST Oxygen Saturation 99% 08/19/2021 4:03 PM EST Inhaled Oxygen Concentration - - Weight 100.5 kg (221 lb 9.6 oz) 08/19/2021 4:03 PM EST Height - - Body Mass Index 31.9 05/22/2021 8:58 AM EDT documented in this encounter Progress Notes LaminShelley guzmán, CARVER AND CHECKERER SPECIALS - 08/19/2021 4:00 PM ESTSummary: 65 year old M dx with 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 [facility] [place] [address] Phone: RADIATION ONCOLOGY FOLLOW UP NOTE Date of visit: 08/19/2021 Patient Dominick Castro 1955 PCP: Grover Herman MD Urologist: Radiation oncologist: Dr. Og Flynn and Dr Sherman Moore Chief Complaint: follow up/labs/leuprolide for prostate cancer Time since completed RT:08/02/21 ADT: If blood work is acceptable, plan will be to administer a shot of 3-months' duration. LIVER ENZYME ELEVATION TODAY 08/19/2021 HELD LUPRON Current treatment: ADT ongoing x one year and surveillance. HPI: Per Dr Flynn notes on treatment. Dominick Castro??is a 65 y.o.??gentleman with unfavorable intermediate-risk prostate cancer (cT2b, Gl4+3, PSA 11).??Clinical stage IIC.?Staging mpMRI 09/27/20 showed a 57 cc gland with PI-RADs 5 lesion in right PZ with curvilinear contact along gland edge. No clear ELIO. ? RADIATION PLAN: Curative. He is planned for combination Cs-131 seed implant (prostate boost) and EBRT (larger field pelvic treatment), along with a total of one year of ADT. ?? Lupron started?01/14/21.?He has continued on monthly Lupron injections delivered in [facility]. ?? Implant was performed under care of Dr. Flynn at [facility]. EBRT portion of therapy was delivered under care of Dr. Moore in [facility]. ? DETAILS OF RADIOTHERAPY: 1. Target Volume: Cs-131 implant -- Prostate only [id number] -- Prostate, SVs, and nodes 2. Total Dose: 85918 cGy Cs-131 implant -- 8500 cGy [id number] -- 4500 cGy in 25 fractions ?? 3. Fractional Dose: Cs-131 implant -- 8500 cGy (single administration) [id number] -- 180 cGy ?? 4. Treatment Technique: Cs-131 implant -- LDR seed brachy implant [id number] -- IMRT/IGRT/VMAT ?? 5. Energy: Cs-131 implant -- Cs-131 [id number] -- 10 MV photons ?? 6. Dates of Therapy: Cs-131 implant -- 05/06/21 [id number] -- 07/01/21 thru 08/02/21 ?? 7. Treatment [...] of dexamethasone. He declined intermittent self-catheterization. ? RADIATION FOLLOW-UP: Plan to continue ADT for total of 12 months. Most recent Lupron (7.5 mg) was delivered 07/19/21. Nextis due on or after 08/16/21. ADT planned to conclude beginning of January 2022. ?? He will be seen in clinic in [place] at that time, with blood work to be performed prior to the Lupron injection. If blood work is acceptable, plan will be to administer a shot of 3-months' duration. ?? Interim HPI: Pt had cholecystectomy in December here at [facility]. Liver enzyme observed very elevated today Mr Castro had been receiving monthly lupron injections from January 2021 to present. The goal was one year of Lupron therapy in conjunction with his brachy and EBRT. Today he presented for Lupron and depending on lab normalcy he was to get a 3 month injection of Lupron. However, AST 458 ALT 750 today. He has no jaundice, mild intermittent nausea and a mild diffuse tenderness across abdomen is present. LUPRON HELD TODAY. Mr Castro had cholecystectomy in December withrecovery as expected. He notes that once previously he has experienced a liver enzyme elevation while getting monthly lupron but has been WNL since. He does have a hx of hepatitis when he was a teen. His father and he had at same time and they assumed from brook water they had both drank from. . Recent nosebleeds x 3 since woodstove started. PLT level WNL. He uses oxycodone/acetaminophen sparingly for shoulder arthritis. Half tab at a time, no ETOH use, minimal medications. He will hold tylenol products. He is up to urinate 3 x noc but do not want to give any extra medications at this time due to liver enzyme elvation and he is in agreement. He will alter hydration to day time and none after dinner. Nohematuria, no bleeding in stool. Medications 07/25/21 1003 Medication Sig Taking? dexamethasone (Decadron) 4 mg Tablet Take 1 tablet by mouth daily (after breakfast). Patient not taking: Reported on 08/01/2021 omeprazole (PriLOSEC) 40 mg Capsule, Delayed Release(E.C.) Take 1 tablet daily 30 mins before breakfast. Take for 5 days while on dexamethasone to prevent upset stomach. Patient not taking: Reported on 08/01/2021 naproxen sodium (ANAPROX) 220 mg Tablet Take 220 mg by mouth 2 times daily (with meals). To keep urinary steam from becoming weak tamsulosin (Flomax) 0.4 mg Capsule Take 1-2 [...] 2.81) performed by Beronica Calixto MD at [facility] OR ??? PRO LAP, CHOLECYSTECTOMY/GRAPH N/A 01/07/2021 LAPAROSCOPIC CHOLECYSTECTOMY WITH CHOLANGIOGRAM (WRVU 11.47) performed by Ramy [facility] MD [facility] OR ??? PRO PERCUT/NEEDLE INSERT, PROSTATE, RADIOISOT N/A 05/06/2021 PROSTATE SEED IMPLANT PROCEDURE (WRVU 13.46) performed by Og Flynn MD at [facility] OR ??? PRO REVISE TOTAL HIP REPLACEMENT Left 01/12/2020 @TOTAL HIP REVISION ARTHROPLASTY, COMPLETE (WRVU 30.28) performed by Jack Lewis MD at [facility] OR ??? PRO REVISE TOTAL HIP REPLACEMENT Right 07/26/2020 @TOTAL HIP REVISION ARTHROPLASTY, COMPLETE (WRVU 30.28) performed by Jack Lewis MD at [facility] OR ??? PROSTATE BIOPSY 07/17/21 at [facility] Family History Problem Relation Age of [...] reviewed the IPSS/MATTIE/Epic-Cp survey results from today NOT ASSIGNED Patient concerns for today's visit: General: She interval hx. Fatigue:not severe, improving slowly. Weight/appetite/diet, slight nausea at times. Respiratory:no sx or illness/ GI: no blood in stool. Had cholecystectomy in December. Over last two weeks has had some abdominal diffuse and mild discomfort across all 4 quandrants. No diarrhea. Mild nausea but no vomiting. :no hematuria, LUTs getting better slowly but up 3x at noc to urinate. Day time urination is less problematic. Endocrine: Sexual health: Muscle skeletal: Bone health: taking Vit D/ Calcium Neuro: Mood:okay Sleep: up 3 x to urinate Function: Exercise: Smoking:no Alcohol:none Support/ social relationships: Advanced directives not discussed today Financial/transportation concerns:none at [...] chair Physical Examination: Body mass index is 31.9 kg/m??. BP 148/90 (Patient Position: Sitting) Pulse 65 Temp 36.2 ??C (97.1 ??F) (Temporal) Resp 18 Wt 100.5 kg (221 lb 9.6 oz) Constitutional: seen in clinic with present. HENT: normocephalic, anicteric, neck supple, no adenopathy Cardiovascular: Rate and Rhythm: Normal rate and regular rhythm. Heart sounds: Normal heart sounds. No murmur Pulmonary: Effort: Pulmonary effort is normal. Breath sounds: Normal breath sounds. No wheezing or rales. Abdomen: Obese, diffusely but mildly tender across all 4 quadrants. No diarrhea, no blood in stool, anictericof skin and sclera. See AST 453 today. ALT returned Genitourinary: Rectum: deferred. Recent completion RT 08/02/21 No inguinal adenopathy Musculoskeletal: Normal range of motion. General: No [...] PSA Test Notes 08/19/21 0.28 04/25/21 4.98??High?? Recent Results (from the past 72 hour(s)) Comprehensive metabolic panel (non-fasting) Result Value Ref Range Glucose Lvl 96 65 - 199 mg/dL BUN 17 10 - 20 mg/dL Creatinine 0.77 (L) 0.80 - 1.50 mg/dL Sodium 142 135 - 145 mmol/L Potassium 3.9 3.5 - 5.0 mmol/L Chloride 105 98 - 107 mmol/L CO2 24 22 - 31 mmol/L Anion Gap 13 5 - 15 mmol/L Calcium 9.7 8.5 - 10.5 mg/dL Total Protein 7.1 6.1 - 8.0 g/dL Albumin 4.4 3.2 - 5.2 g/dL AST 458 (H) 0 - 39 unit/L ALT 750 (H) 0 - 55 unit/L Alk Phos 119 40 - 130 unit/L Total Bilirubin 0.7 0.2 - 1.3 mg/dL Estimated GFR 95 >=60 mL/min/1.73 m?? PSA (Ultrasensitive) Result Value Ref Range PSA Total (Ultrasensitive) 0.28 0.00 - 4.00 ng/mL Testosterone, total Result Value Ref Range Testo Total <0.03 (L) 1.93 - 7.40 ng/mL Hemogram Result Value Ref Range WBC 3.1 (L) 4.0 - 9.5 x10(3)/mcL RBC 4.74 4.58 - 5.54 x10(6)/mcL Hemoglobin 14.7 13.7 - 16.5 g/dL Hematocrit 42.9 40.5 - 48.5 % MCV 90.5 82.9 - 93.1 fL MCH 31.0 27.5 - 32.1 pg MCHC 34.3 32.0 - 35.7 g/dL Platelets 194 145 - 357 x10(3)/mcL RDWSD 45.1 (H) 36.0 - 45.0 fL RDWCV 13.3 11.4 - 13.8 % MPV 12.0 7.6 - 12.9 fL nRBC % Auto 0.0 % nRBC Abs Auto 0.000 0.000 - 0.000 x10(3)/mcL Differential, Automated Result Value Ref Range Neutrophils % 65.9 % Neutr Abs (ANC) 2.05 1.70 - 6.10 x10(3)/mcL Lymphocytes % 14.1 % Lymphocytes Abs 0.4 (L) 0.9 - 3.2 x10(3)/mcL Monocytes % 12.2 % Monocyte Abs 0.4 0.3 - 0.9 x10(3)/mcL Eosinophils % 5.8 % Eosinophils Abs 0.2 0.0 - 0.4 x10(3)/mcL Basophils % 1.0 % Basophils Abs 0.0 0.0 - 0.1 x10(3)/mcL Immature Gran % 1.00 % Sarai Gran Abs 0.03 0.00 - 0.04 x10(3)/mcL Assessment: 65 y.o. presenting for follow up/ lab/leuprolide for prostate cancer. Mr Castro had been receiving monthly lupron injections from January 2021 to present. The goal was one year of Lupron therapy in conjunction with his brachy and EBRT. Today he presented for Lupron and depending on lab normalcy he was to get a 3 month injection of Lupron. However, AST 458 ALT 750 today. He has no jaundice, mild intermittent nausea and a mild diffuse tenderness across abdomen is present. LUPRON HELD TODAY. Mr Castro had cholecystectomy in December withrecovery as expected. He notes that once previously he has experienced a liver enzyme elevation while getting monthly lupron but has been WNL since. He does have a hx of hepatitis when he was a teen. His father and he had at same time. Recent nosebleeds x 3 since woodstove started. PLT level WNL. He uses oxycodone/acetaminophen sparingly for shoulder arthritis. Half tab at a time, no ETOH use, minimal medications. He will hold tylenol products. He is up to urinate 3 x noc but do not want to give any extra medications at this time due to liver enzyme elvation and he is in agreement. He will alter hydration to day time and none after dinner. Nohematuria, no bleeding in stool. He and aware that if abdominal pain increases beyond his diffuse intermittent tenderness, jaundice, nausea, vomiting or fever,chills, he will need to present to ED for more urgent eval. Medical Decision Making/Recommendations/Plan: # prostate cancer: reviewed [...] Blood in your urine or stool # ADT: Labs reviewed: YES/ AST/ALT severely elevated. Symptoms:as above Willing to proceed with next dose today?NO/HELD LUPRON Order: Leuprolide Next dose due: # survivorship/lifestyle/wellness: Genetic Risk Evaluation: Body weight/nutrition Exercise: Bone health: Smoking: Alcohol: None Annual exam with PCP: Up to date on vaccinations: Colorectal screening: Lung cancer screening: # resources provided: # referrals done: US abdom complete. # follow up: Per NCCN guidelines, PSA and history/physical every 6-12 months X 5 years, then annually. Annual JOSE (unless PSA undetectable or prostatectomy). PSA may be checked more frequently depending on risk level or other patient specific factors. Next visit:In one week for labs check on CMP/liver enzyme elevation, CBC, AFP and US of entire abdomen. (Trillioned to Misty at [facility] to arrange) Labs: PSA, testosterone, CBC, CMP Dominick Castro had the opportunity to ask questions and I answered them to the best of my knowledge.Dominick Castro agreed to contact radiation oncology in between visits if he has any questions/concerns or new symptoms in regards to the radiation therapy/prostate cancer Shelley Kimble MSN, CARVER AND CHECKERER SPECIALS, SCHEDULE CHECKER-C Nurse Practitioner Radiation Oncology documented in this encounter Plan of Treatment Upcoming Encounters Date Type Specialty Care Team Description 07/08/2022 Office Visit Radiation Oncology Shelley Kimble APRN [facility] [place], [place] [address] (Wo rk) documented as of this encounter Visit Diagnoses Diagnosis Malignant neoplasm of prostate - Primary documented in this encounter Care Teams Hand Bunch Maker Relationship Specialty Start Date End Date Grover Herman MD PCP - General Family Medicine 07/19/20 [address] [place] [address] documented as of this encounter
--- OUTSIDE RECORDS SUMMARY | 2022-07-01 13:45 | XMS_ITS | Encounter Summary ---
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 Please refer to the procedure calendar for timing of medications: Tamsulosin (flomax): relaxes prostate gland/bladder so you can urinate more easily- take at bed time. May make you lightheaded/dizzy at first, so move slowly when getting out of bed. Levaquin: antibiotic to prevent infection- the first dose is given during the procedure. Take for 7 days- can cause (but not limited to) nausea, diarrhea, rash, itching, rare- rupture of achilles tendon. This drug may cause severe side effects like irritated or torn tendons; nerve problems in the arms, hands, legs, or feet; and nervous system problems. These can happen alone or at the same time. Theycan happen within hours to weeks after starting this drug. Some of these effects may not go away, and may lead to disability or . Tendon problems can happen as long as several months after treatment. Take with or without food. Do not take dairy products, antacids, didanosine, sucralfate, multivitamins, or other products that contain calcium, magnesium, aluminum, iron, or zinc within 2 hours beforeor 2 hours after taking this drug. Decadron (Short course) Generic Name: Dexamethasone Decadron has many uses in the treatment of cancer. It is a glucocorticosteroid. What is Decadron used for? Decadron relieves inflammation in various parts of the body. It reduces swelling (edema), after procedures such as seed implants for prostate cancer Important things to remember about Decadron side effects: Most people do not experience side effects during a short course of treatment They are usually reversible and will go away after treatment is complete Common side effects (occurring in greater than 30%): Increased appetite Irritability Difficulty sleeping (insomnia) Swelling in your ankles and feet (fluid retention) Heartburn Increased blood sugar levels Self-care: *Take your Decadron with food to prevent stomach irritation and early in morning (before noon) to prevent difficulty sleeping (unless you take it twice per day). If you have nausea/stomach upset, take an over the counter medication such as omeprazole (or similar) *If you experience symptoms or side effects, be sure to discuss them with your health care team documented in this encounter Progress Notes Lynda Napoles APRN - 04/25/2021 2:45 PM EDT Subjective: Patient ID: Marlen Harper is a 65 y.o. male. 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 oxyCODONE-acetaminophen (Percocet) 5-325 mg Tablet 1 tablet every 4 hours as needed (hip and shoulder pain). No Known Allergies Past Medical History: Diagnosis Date ??? Chronic [...] 2018 ??? JOINT REPLACEMENT hipss ??? PRO LAP, CHOLECYSTECTOMY/GRAPH N/A 01/07/2021 LAPAROSCOPIC CHOLECYSTECTOMY WITH CHOLANGIOGRAM (WRVU 11.47) performed by Ramy Porter MD [facility] MAIN OR ??? PRO REVISE TOTAL HIP REPLACEMENT Left 01/12/2020 @TOTAL HIP REVISION ARTHROPLASTY, COMPLETE (WRVU 30.28) performed by Jack Lewis MD at [facility] MAIN OR ??? PRO REVISE TOTAL HIP REPLACEMENT Right 07/26/2020 @TOTAL HIP REVISION ARTHROPLASTY, COMPLETE (WRVU 30.28) performed by Jack Lewis MD at [facility] MAIN OR ??? PROSTATE BIOPSY 07/17/21 at [facility] Patient Active Problem List Diagnosis Code ??? Rotator cuff tear M75.100 ??? Migraines G43.909 ??? s/p revision L REGGIE 01/12/20 (Dr. Lewis) T84.018A, Z96.649 ??? Obesity (BMI 30.0-34.9) E66.9 ??? Chronic prescription opiate use Z79.891 ??? Malignant neoplasm of prostate C61 Family History Problem Relation Age of Onset ??? Leukemia Father ? related to chemical exposure while in ??? Breast Cancer Sister ??? Deep Vein Thrombosis Neg Hx ??? Thrombosis Neg Hx ??? Diabetes Neg Hx Review of Systems Constitutional: Negative for appetite [...] patient is not nervous/anxious. 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 Judgment: Judgment normal. LABS REVIEWED TODAY: Recent Results (from the past 24 hour(s)) Testosterone, total Result Value Ref Range Testo Total 2.12 1.93 - 7.40 ng/mL PSA (Ultrasensitive) Result Value Ref Range PSA Total (Ultrasensitive) 4.98 (H) 0.00 - 4.00 ng/mL Comprehensive metabolic panel (non-fasting) Result Value Ref Range Glucose Lvl 97 65 - 199 mg/dL BUN 11 10 - 20 mg/dL Creatinine 0.78 (L) 0.80 - 1.50 mg/dL Sodium 141 135 - 145 mmol/L Potassium 4.1 3.5 - 5.0 mmol/L Chloride 104 98 - 107 mmol/L CO2 28 22 - 31 mmol/L Anion Gap 9 5 - 15 mmol/L Calcium 9.3 8.5 - 10.5 mg/dL Total Protein 7.0 6.1 - 8.0 gm/dL Albumin 4.4 3.2 - 5.2 gm/dL AST 22 0 - 39 unit/L ALT 45 0 - 55 unit/L Alk Phos 87 40 - 130 unit/L Total Bilirubin 0.2 0.2 - 1.3 mg/dL Estimated GFR 94 >=60 mL/min/1.73 m?? Hemogram Result Value Ref Range WBC 6.3 4.0 - 9.5 x10(3)/mcL RBC 4.82 4.58 - 5.54 x10(6)/mcL Hemoglobin 14.5 13.7 - 16.5 gm/dL Hematocrit 42.9 40.5 - 48.5 % MCV 89.0 82.9 - 93.1 fL MCH 30.1 27.5 - 32.1 pg MCHC 33.8 32.0 - 35.7 gm/dL Platelets 223 145 - 357 x10(3)/mcL RDWSD 44.1 36.0 - 45.0 fL RDWCV 13.4 11.4 - 13.8 % MPV 12.0 7.6 - 12.9 fL nRBC % Auto 0.0 % nRBC Abs Auto 0.000 0.000 - 0.000 x10(3)/mcL Differential, Automated Result Value Ref Range Neutrophils % 47.5 % Neutr Abs (ANC) 3.01 1.70 - 6.10 x10(3)/mcL Lymphocytes % 41.0 % Lymphocytes Abs 2.6 0.9 - 3.2 x10(3)/mcL Monocytes % 8.5 % Monocyte Abs 0.5 0.3 - 0.9 x10(3)/mcL Eosinophils % 1.9 % Eosinophils Abs 0.1 0.0 - 0.4 x10(3)/mcL Basophils % 0.8 % Basophils Abs 0.0 0.0 - 0.1 x10(3)/mcL Immature Gran % 0.30 % Sarai Gran Abs 0.02 0.00 - 0.04 x10(3)/mcL Results for MARLEN HARPER ( ) as of 04/25/2021 14:15 Ref. Range 12/27/2020 16:42 04/25/2021 12:34 PSA Total (Ultrasensitive) Latest Ref Range: 0.00 - 4.00 ng/mL 1.23 4.98 (H) Results for MARLEN HARPER ( ) as of 04/25/2021 14:15 Ref. Range 12/27/2020 16:42 04/25/2021 12:34 Testo Total Latest Ref Range: 1.93 - 7.40 ng/mL 0.24 (L) 2.12 Assessment and Plan: 65 yo male presenting for H/P prior to prostate brachy therapy procedure scheduled for 05/06/[address] Flynn # medications for procedure: I prescribed 3 medications, tamsulosin, dexamethasone, levaquin. I reviewed use, potential side effects (see AVS). He will take them per the procedural calendar that the RORN will give him and go over with him after our visit. # discussed risk factors for blood clots [...] or fainting, rapid pulse, coughing up blood # labs: discussed elevated PSA/testosterone today compared with 12/27/[address] Reyna (seebelow). Unclear explanation for this- has been receiving monthly Lupron with most recent 7. 5 mg dose on 04/19/21. Not sexually active. Plan to repeat the testosterone/PSA the day of the procedure. Orders placed. Dr. Flynn will ask them to draw the blood just prior to the procedure in the holding area or the OR itself. 12/27/20 04/25/21 PSA 2.12 4.98 Test 0.24 2.12 He will meet with the RO RN next for calendar/medication/pre-procedure education and then with Dr. Flynn for questions/consent signing. The plan is for him to receive EBRT after the brachytherapy with Dr. Moore in [facility] and follow up will be in [facility]. Marlen Harper and his had the opportunity to ask questions and I answered them to the best of my knowledge. Marlen Harper agreed to contact radiation oncology in between visits if he has any questions/concerns or new symptoms in regards to the radiation therapy. I spent 30 minutes, (including face to face and non-face to face time) for this encounter. This includes: Preparation for the visit: _x_ reviewing test results _x_ obtaining interim medical/surgical history __ reviewing patient completed questionnaires During the visit: _x_ obtaining the history/ROS __x performing medically appropriate examination and ROS __ reviewing test results with patient/family/caregiver _x_ discussing disease status _x_ counseling/educating the patient/family/caregiver __ ordering medications/tests/procedures _x_ referring and communicating with other health professionals Post visit: _x_ documenting in medical record __ communications with other health professionals __ other: Lynda Napoles, LINETTE, ANP, DIE REPAIR MACHINIST, AOCNP Nurse Practitioner Radiation Oncology documented in this encounter Plan of Treatment Upcoming Encounters Date Type Specialty Care Team Description 07/08/2022 Office Visit Radiation Oncology Shelley Kimble APRN [facility] [place] [address] (Wo rk) documented as of this encounter Results Testosterone, total (04/25/2021 12:34 PM EDT) athologist Signature Testo Total 2.12 1.93 - 7.40 [place] [facility] ng/mL [facility] Comment: Pediatric Reference Ranges: ? Males [...] CHEMISTRY ORDERABLES Performing Organization Address City/State/ZIP Code [facility] [place] [address] (ABNORMAL) PSA (Ultrasensitive) (04/25/2021 12:34 PM EDT) Analysis Performed At Path logis Time Signature PSA Total 4.98 (H) 0.00 - [place] JONES (Ultrasensitiv 4.00 ng/mL [facility] Comment: PLEASE NOTE: The above reference [...] Resulting Agency Comment Spec In Lab Lynda Sewell Yesika SOLIMAN CHEMISTRY ORDERABLES Performing Organization Address City/State/[place] [address] (ABNORMAL) Comprehensive metabolic panel (non-fasting) (04/25/2021 12:34 PM EDT) P athologist Signature Glucose Lvl 97 65 - 199 [facility] mg/dL [facility] Comment: Diabetes: >=200 mg/dL plus symp toms BUN 11 10 - 20 mg/dL [facility] Creatinine 0.78 (L) 0.80 - 1.50 mg/dL [facility] Sodium 141 135 - 145 mmol/L [facility] Potassium 4.1 3.5 - 5.0 mmol/L [facility] Comment: Please note: ??Patients with WBC >100,00 0 may have falsely elevated Potassium levels. ??For accurate Potassium quantif ication in these patients send serum separator tube (gold top) for subsequent determinations. ??Contact the Clinical Chemistry Laboratory if there are any qu estions. Chloride 104 98 - 107 mmol/L [facility] CO2 28 22 - 31 mmol/L [facility] Anion Gap 9 5 - 15 mmol/L [facility] Calcium 9.3 8.5 - 10.5 mg/dL [facility] Total Protein 7.0 6.1 - 8.0 gm/dL [facility] Albumin 4.4 3.2 - 5.2 gm/dL [facility] AST 22 0 - 39 unit/L [facility] ALT 45 0 - 55 unit/L [facility] Alk Phos 87 40 - 130 unit/L [facility] Total Bilirubin 0.2 0.2 - 1.3 mg/dL [facility] Estimated GFR 94 >=60 mL/min/1.73 m?? [facility] Comment: This patient? s estimated glomerular [...] Agency Comment Spec In Lab [facility] DIE REPAIR MACHINIST CHEMISTRY ORDERABLES Performing Organization Address City/State/[place] [address] documented in this encounter Visit Diagnoses Diagnosis Malignant neoplasm of prostate documented in this encounter Care Teams Maintenance Team Member Relationship Specialty Start Date End Date Grover Herman MD PCP - General Family Medicine 07/19/20 [address] [place] [address] documented as of this encounter
--- OUTSIDE RECORDS SUMMARY | 2022-07-01 13:45 | XMS_ITS | Encounter Summary ---
:1955 [place] [address] Care Team Providers Name Role Phone Grvoer Herman MD Primary Care Provider Encounter Details Date Type Department Care Team Description 08/21/2021 Ancillary Procedure [facility] [place] Tamar Santizo MD ERROR / CORRECTION ) [facility] [address] GASTROENTEROLOGY [address] [place], [place] [phone] Social History Tobacco Use Types Packs/Day Years [...] 07/08/2022 Office Visit Radiation Oncology Shelley Kimble, [facility] RADIATION [place] [address] (Wo rk) documented as of this encounter Visit Diagnoses Not on filedocumented in this encounter 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
--- OUTSIDE RECORDS SUMMARY | 2022-07-01 13:45 | XMS_ITS | Encounter Summary ---
:1955 Author Organization [facility] [address] Care Team Providers Name Role Phone Grover Herman MD Primary Care Provider Reason for Visit Consultation (Routine) - Closed Specialty Diagnoses / Procedures Referred By Contact Refer red To Contact Radiation Oncology Diagnoses Malignant neoplasm of prostate Og Flynn MD [facility] Rad Onc Office Procedures Simulation for Radiation Therapy Planning [facility] [place] [address] [place] [address] Phone: Fax: Referral ID Status Reason Start Date Expiration Date Visits V isits Requested Authorized [id number] Closed Consult, 05/09/2021 05/09/2022 26 26 Test & Treat Encounter Details Date Type Department Care Team Description 06/06/2021 Ancillary Radiation Oncology Og Flynn nt neoplasm Appointment at [facility] MD Binh of prostate [facility] [address] [place], [place] RADIATION [address] ONCOLOGY [phone] [place] [address] Social History Tobacco Use Types Packs/Day Years [...] Sign Reading Time Taken Comments Blood Pressure 150/72 06/06/2021 2:44 PM EDT Pulse 65 06/06/2021 2:44 PM EDT Temperature 36.7 ??C (98 ??F) 06/06/2021 2:44 PM EDT Respiratory Rate 17 06/06/2021 2:44 PM EDT Oxygen Saturation 98% 06/06/2021 2:44 PM EDT Inhaled Oxygen Concentration - - Weight 101.2 kg (223 lb) 06/06/2021 2:44 PM EDT Height - - Body Mass Index 32.11 05/22/2021 8:58 AM EDT documented in this encounter Patient Instructions Patient InstructionsChelsey Cloud RN - 06/06/2021 3:00 PM EDT General instructions for Radiation therapy Radiation Oncology Team ?? Radiation Oncologist -The doctor who will direct all aspects of your radiation treatments ?? Nurse Practitioner - They assist your doctor in treating your side effects and with follow up appointments. ?? Registered Nurse - They wagner you in learining about you radaiton treatments, , and things you can do to help manage the side effects. ?? Survey Interviewer - They take the doctors radiation prescription and customize it into doses (or days of treatments) specific for you. ?? Physicist - They make sure all the machines are operating correctly and double check calculationsfor your treatment. ?? Radiation Technologists - They operate the machines which deliver your radiation. You see them daily and they schedule your treatments. ?? Simulation CT/ Planning Session- Your first step after deciding to start radiation treatments is done on a special CT scanner in radiation oncolcgy. The images obtained are used to plan your treatments. This may be scheduled the sameday you meet your doctor or in a separate visit. This usually takes between 30 minutes to one hour. You may need an IV for contrast. If so our nurse will let you know that day along with any other special instructions. During this visit we may rekha Your skin with a tiny ???tattoos?? , take pictures ormake special molds or masks to help us place you in the exact treatment position every day. After this session it takes up to two weeks for your plan to be developed and checked by your doctor, the dosimetrists and the physicist. ?? Skin Care - Your nurse/physician will provide you with the necessary creams and supplies as you need them during your treatments. Please make sure to keep the treatment area clean and dry. Be sure to notice if your clothing rubs or digs into the treatment area and try to wear clothes which are less abrasive, like cotton or loosefitting. Do not use harsh soaps, ointments, deodorants or tapes in the treatment area unless directed by your nurse or doctor. Keep the treatment area out of the sun during treatments. ?? General precautions- DO NOT USE heating pads, hot water bottles, hot poultices, heat lamps, heat in any form, or ice packs to the area of your body being treated. It is common to start feeling fatigue after a few weeks of being treated. You can help minimize this by getting regular exercise or walking and getting plenty of rest. In general a well balanced diet is recommended. The edi analyst and nurse will inform you of any special diet requirements. Avoid shaving the treatment area with a razor. If you must shave use an electric razor. Our Contact numbers Section of Radiation Oncology Our normal business hours are: Thursday - Thursday: 8:00 AM to 5:00 PM [facility]: If you have questions about your radiation appointments please ask to speak to one of our certified legal secretary specialist staff. If you have questions for a nurse/doctor about radiation treatments, radiation side effects or you are not feeling well it is best to call early in the day. This allows a nurse to return your call by 5PM the same day. If you call after 4 PM, a nurse will return your call by 5 PM the following day unless it is emergent. If you experience any of the following you need to seek emergency care immediately by calling 911 1. Sudden and unexpected breathing difficulty without any exertion 2. Sudden onset of chest pain 3. Sudden onset of severe pain or uncontrolled pain 4. Sudden onset of severe weakness and/or unable to ambulate 5. Sudden new onset of a seizure 6. Fall resulting in injury ?? A Radiation Oncology doctor is front desk admin after our normal hours and on weekends. ?? To call for urgent medical issues from radiation treatments that can not wait until normal business hours: Call for either location and have the handle machine operator page the Radiation Oncologist front desk admin. Radiation Therapy for Prostate Cancer Androgen Deprivation Therapy (ADT) ADT means taking medicines to lower your testosterone. Prostate cancer feeds on testosterone, so taking it away starves your cancer. You will first need to take a pill called bicalutamide which discourages your body from absorbing testosterone. After taking this pill you will come in for a shot called leuprolide which discourages your body from producing testosterone. These two medicines work together to lower your testosterone level to a very low level. The length of time you take these medications will be personalized for you by your physician according to your personal needs. You will need to have lab draws periodically while you are on these medications. Planning A planning session (CT Simulation) and possibly an MRI will be scheduled for you. These images are used to plan your radiation treatment. At this visit you will receive small tattoo dots on your skin. These help rekha exactly how you will be lined up on the radiation treatment table. You will also be asked to have a comfortably full bladder for this simulation and for each radiationtreatment. Urine in your bladder helps protect your bladder tissue from the radiation and helps keepsome of your bowel out of the treatment area. About 2 weeks after simulation you will begin radiation treatments. What to Expect During Treatments. Treatments are given in 15-30 minutes increments daily Thursday through Thursday during the hours of 7:30 am- [address] yourself to and from these appointments. You may request a certain time of day that isconvenient for you. You may start feeling some side effects after a couple weeks. Side effects result from the radiationcausing your prostate to swell and irritating cells near your prostate or the prostate bed area. These may include some changes in your urination. It may become more difficult to start your flow. You may need to void more often. Your stream may be weaker. You may have some discomfort when you urinate. Please tell the nurse or your doctor if you experience any of these symptoms. You may notice a change in your bowel patterns. Your bowel movements may be more frequent and/or loose. If you develop bowel symptoms, please let the nurse or your doctor know. Please ask the nurse or your doctor if you have any questions or concerns about your personalized course of treatment. documented in this encounter Progress Notes Og Flynn MD - 06/06/2021 3:00 PM EDT Identification: Dominick Castro is a 65 y.o. gentleman with unfavorable intermediate-risk prostate cancer (cT2b, Gl 4+3, PSA 11).??Clinical stage IIC.?Staging mpMRI 09/27/20 showed a 57 cc gland with PI-RADs 5 lesionin right PZ with curvilinear contact along gland edge. No clear ELIO. ??Plan: Cs-131 seed implant as a boost to the prostate, then EBRT as consolidation treatment. ADT to continue for total 12 mos. He underwent brachytherapy Cs-131 seed implant on 05/06/21, at which point in total 62 Cs-131 seeds were used for the implant with planned delivery of 85 Gy to the prostatic volume, which at that point was calculated at 36 mL. The patient now returns in routine followup for CT-based dosimetry of his implant, and for treatment planning of the consolidative external beam portion of his radiation therapy. He is planned to remain on ADT for total of one year. Lupron started 01/14/21. He has continued on monthly Lupron injections, with the most recent being 05/22/21, all delivered in [facility]. Interval History: Overall, he finds that his current symptomatology is gradually improving. Following the implant nocturia was typically 4-5 times nightly, but over the past week this has shown some improvement, now running 2-4 times nightly. Nevertheless, flow is slow, requiring considerable straining. He is currently taking two Flomax nightly before bedtime. About 3-4 days ago he noted some erythema and excoriation of the foreskin along the dorsal and ventrla surfaces of the penis. He does not recall trauma to the area. He has not introduced new soap or other topical application to the area. Etiology is unclear to him; he wonders if it is related to his implant. Bowel movements are doing well, without diarrhea, constipation, or blood IA. He does note some frequency, with BMs about 4-6 times daily, because of his frequent urination with straining, which often leads to a BM as well. He does not consider this bothersome or concerning or beyond normal. He notes fatigue, due to his disturbed sleep patterns with his frequent urination. Of note, he reports he lost his sense of taste nine days after his seed implant. Then, after three weeks, his sense of taste returned. Physical Examination: BP 150/72 (Patient Position: Sitting) Pulse 65 Temp 36.7 ??C (98 ??F) (Temporal) Resp 17 Wt 101.2 kg (223 lb) SpO2 98% BMI 32.11 kg/m?? Abdomen is soft and nontender. External genitalia are notable for some erythema and small areas of apparent excoriation of the foreskin. Perineal skin reaction has resolved. Procedure: CT-based simulation for dosimetry of the patient's Cs-131 brachytherapy seed implant and for planning of EBRT Physician: Og Flynn M.D. Description of Procedure: Mr. Castro was placed supine on the CT simulation couch. A sponge was placed underneath the knees for support and standard foot immobilization was employed. A penile clamp was placed, the meatus was cleaned with Betadine, and a small volume of contrast material was injected into the distal urethra for imaging of the urogenital diaphragm. CT scan was then performed of the prostate and periprostatic tissues including the seed implant within the gland. The clamp was then removed, the patient voided (with specimen taken for UA/C+S), and he was then discharged in excellent condition. Complications: None. Findings: Prostate volume: ^ cc D90: ^ Gy (^ of Rx) V90: ^ cc (^% of gland) V100: ^ cc (^% of gland) V150: ^ cc (^% of gland) V200: ^ cc(^% of gland) RV100: ^ cc RV150: ^ cc Disposition: We will proceed with planning for the patient's external beam portion of his prostate cancer RT. He will return in 3 weeks or so to begin EBRT. He is planned to receive 45 Gy in 25 fx to the prostate, SVs, and draining lymphatics. He continues on ADT. He will be receiving his EBRT at our [facility] under the care of Dr. Moore. We await UA/C+S to assure there is no UTI. He may apply topical Aquaphor or similar emolient to the foreskin, which should heal. This is unrelated to his seed implant. There is no evident superficial infection. Mr. Castro was seen in followup within three months of his brachytherapy seed implant. This constitutes a global office visit. Also, simulation was employed on this date for verification of brachytherapy source placement. documented in this encounter Plan of Treatment Upcoming Encounters Date Type Specialty Care Team Description 07/08/2022 Office Visit Radiation Oncology Shelley Kimble APRN [facility] RADIATION ONCWARNER [place], [place] [address] (Wo rk) documented as of this encounter Procedures Procedure Name Priority Date/Time Associated Comments Diagnosis URINALYSIS WITH Routine 06/06/2021 4:10 PM Result s for this REFLEX CULTURE EDT procedure are in the results section. documented in this encounter Results Urinalysis with reflex Culture (06/06/2021 4:10 PM EDT) [facility] Method Time Signature Glucose UA Negative Negative [facility] mg/dL [facility] Protein UA Negative Negative [facility] mg/dL [facility] Bilirubin UA Negative Negative [facility] mg/dL [facility] Comment: Clinical correlation required for positi ve Urine Bilirubin results as false positive may occur with some drugs and d rug related products. If a false positive is suspected a serum total bili navarrete should be considered if clinically indicated. Urobilinogen UA Normal Normal mg/dL [facility] pH UA 6.0 5.0 - 8.0 [facility] Blood UA Negative Negative mg/dL [facility] Ketones UA Negative Negative mg/dL [facility] Nitrite UA Negative Negative [facility] Leukocytes UA Negative Negative [facility] Appearance UA Clear Clear [facility] Spec [place] UA 1.016 1.005 - 1.030 [facility] Color UA Yellow Yellow [facility] Culture Reflexed No [facility] Specimen Anatomical Collection Method Collection Time Receive d Time (Source) Location / / Volume Laterality Urine Urine / Unknown 06/06/2021 4:10 PM 2020 4:20 EDT PM EDT Resulting Agency Comment Spec In Lab Og Flynn MD URINE ORDERABLES Performing Organization Address City/State/[place] [address] documented in this encounter Visit Diagnoses Diagnosis Malignant neoplasm of prostate documented in this encounter Care Teams Donor Center Technician Relationship Specialty Start Date End Date Grover Herman MD PCP - General Family Medicine 07/19/20 [address] [place] [address] documented as of this encounter
--- OUTSIDE RECORDS SUMMARY | 2022-07-01 13:45 | XMS_ITS | Encounter Summary ---
:1955 Author Organization [facility] [place] [address] Care Team Providers Name Role Phone Grover Herman MD Primary Care Provider Encounter Details Date Type Department Care Team Description 07/25/2021 [facility] prostate [address] [place], [place] RADIATION ONCOL OGY [address] [place], [place] [phone] (Wo rk) Social History Tobacco Use Types [...] Sign Reading Time Taken Comments Blood Pressure 141/85 07/25/2021 9:00 AM EST Pulse 69 07/25/2021 9:00 AM EST Temperature 36.7 ??C (98.1 ??F) 07/25/2021 9:00 AM EST Respiratory Rate 16 07/25/2021 9:00 AM EST Oxygen Saturation 98% 07/25/2021 9:00 AM EST Inhaled Oxygen Concentration - - Weight 100.5 kg (221 lb 9.6 oz) 07/25/2021 9:00 AM EST Height - - Body Mass Index 31.9 05/22/2021 8:58 AM EDT documented in this encounter Progress Notes Sherman Moore MD - 07/25/2021 10:00 AM EST Images from the original note were not included. RADIATION ONCOLOGY - Weekly On Treatment Visit Note 07/25/21 SHERMAN MOORE MD Radiation Oncology [facility] [phone] (paging plodder operator) Pager #[phone] PATIENT IDENTIFICATION Name Dominick Castro Date of [...] 45 Gy in 25 fractions Current Dose: 34.2 Gy in 19 fractions INTERVAL HISTORY General Overall feels fair. GI Occ diarrhea at baseline. He does not think BMs have changed much since starting RT. Nocturia 2x/nt at baseline. Now going 3-4x/nt. Stream very weak yesterday. He wonders if he forgot to take his morning Flomax dose? He took 2 flomax last night with resolution of symptoms. Taking Aleve 1 tab BID, Flomax 1 [...] original approved treatment planning images. EXAM: BP 141/85 Pulse 69 Temp 36.7 ??C (98.1 ??F) Resp 16 Wt 100.5 kg (221 lb 9.6 oz) SpO2 98% BMI 31.90 kg/m?? Constitutional: he appears well-developed and well-nourished. [...] Tolerating as anticipated. Continue as planned. Next / final Lupron due week of 08/11. LUTS Rec dex 4mg qd x 5d. PPI provided. ISC supplies provided in case of emergency. Followup: Return to clinic next week for on treatment check. documented in this encounter Plan of Treatment Upcoming Encounters Date Type Specialty Care Team Description 07/08/2022 Office Visit Radiation Oncology Shelley Kimble, CHIEF NURSING OFFICER [facility] RADIATION ONCWARNER [place], [place] [address] (Wo rk) documented as of this encounter Visit Diagnoses Diagnosis Malignant neoplasm of prostate documented in this encounter Care Teams Wine Sales Representative Relationship Specialty Start Date End Date Grover Herman MD PCP - General Family Medicine 07/19/20 [address] [place] [address] documented as of this encounter
--- OUTSIDE RECORDS SUMMARY | 2022-07-01 13:45 | XMS_ITS | Encounter Summary ---
:1955 [place] [address] Care Team Providers Name Role Phone Grover Herman MD Primary Care Provider Reason for Visit Auth/Cert Specialty Diagnoses / Procedures Referred By Contact Refer red To Contact Diagnoses PROSTATE CA Procedures PRO PERCUT/NEEDLE INSERT, PROSTATE, RADIOISOT PROSTATE SEED IMPLANT PROCEDURE (WRVU 13.46) Referral ID Status Reason Start Date Expiration Date Visits Requ ested Visits Authorized [id number] 1 1 Encounter Details Date Type Department Care Team Description 05/06/2021 Anesthesia Event Main Operating Room Av Amaya MD [facility] [place] [place] [address] [facility] [place] [place] [address] [facility] [place] [address] Anesthesia Record Procedure Summary Procedure Name Responsible Anesthesia Start Anesthesia Stop Time Anesthesiologist Time PROSTATE SEED Av Lee MD 05/06/21 0745 05/06/21 1322 IMPLANT PROCEDURE (WRVU 13.46) (N/A Perineum) Events Date Time Event Comment 05/06/2021 0628 0745 AN Verify 0745 Start 0745 An Start Data 0750 An Induction 0755 An Intubation 0819 Break/Relief In I assumed care f or Break Relief before which we: 1. Identifie d the patient 2. Identified the responsible provider(s) 3. Reviewed the pertinent medica l history 4. Discussed the surgical plan an d course 5. Reviewed intra-op anesthesia manag ement and issues during anesthesia 6. Se t expectations for the relief (and/or post-pro cedure) period 7. Allowed opportunity for questions and acknowledgement of understanding Grover Sharif, CMA 0835 Break/Relief Out 0838 Procedure Start 0838 Anesthesia Ready 1145 Break/Relief In I assumed care f or Break Relief before which we: 1. Identifie d the patient 2. Identified the responsible provider(s) 3. Reviewed the pertinent medica l history 4. Discussed the surgical plan an d course 5. Reviewed intra-op anesthesia manag ement and issues during anesthesia 6. Se t expectations for the relief (and/or post-pro cedure) period 7. Allowed opportunity for questions and acknowledgement of understanding Katalina Garcia, CMA 1214 Break/Relief Out 1319 Extubation/LMA Out 1322 an stop data 1322 Recovery or ICU Handoff Patient care was transferred to the destination unit staff after review of the patient's medica l history, current anesthetic/surgi amee status and plan, according to the Provider Handoff Checklist. 1322 Stop Name Total Midazolam 2 mg fentaNYL 150 mcg IV Lidocaine 100 mg Propofol 300 mg Rocuronium 70 mg ePHEDrine 5 mg Ondansetron 4 mg Dexamethasone 8 mg dexamethasone (Decadron) injection 8 mg 0 mg Neostigmine 2 mg Glycopyrrolate 0.4 mg levoFLOXacin (Levaquin) 750 mg in dextrose 5% 150 mL i nfusion 750 mg Propofol INF 777.35 mg HYDROmorphone 0.8 mg Lactated Ringers 1,200 mL Agents Name O2 Air N2O Sevoflurane (et) Blood No blood administrations on file. Lines, Drains, and Airways Type Details Placement Removal Incision 01/12/20; 0819; hip; 01/12/20 0819 by Shoaf, 1715 by vertical; 05/12/22 (CHAZ Hinson Dierdre L cleanup utility RA#[id number]); 1715 ([facility] cleanup utility RA#[id number]) Incision 07/26/20; 1512; thigh; 07/26/20 1512 by 05/12/22 1715 by 05/12/22 (LDA Kj Marinelli RN Mu ller, Dierdre L utility RA#[id number]); 1715 (LDA cleanup utility RA#[id number]) Incision 01/07/21; 1103; abdomen; 01/07/21 1103 by 1715 by laparoscopic punctures Cecilia Wilson Muller, Dierdre L (specify) (Four lap trocar RN sites); 05/12/22 (LDA cleanup utility RA#[id number]); 1715 (LDA cleanup utility RA#[id number]) PIV 05/06/21; 0718; cephalic 05/06/21 0718 by Usama nguyen, 05/06/21 1506 by vein (lateral side of arm), Britt Fraire RN Pach eco, Meghan Stewart RN left; [id number]-zomhkv catheter system; Anatomical Landmarks; 20 gauge, 1 in length; chaz merchant; distraction, appears comfortable, tolerated well; 0; 05/06/21; 1506 ETT Mask Ventilation: Easy (1); 05/06/21 0755 by Jg guadalupe, 05/06/21 1319 by Demetrius ETT Type: Cuffed, Oral; ETT Maldonado A, CMA Maldonado A, CMA Size: 7.5 mm; Mac Blade: 3; Notes: Asleep, Pre-O2, Stylette; Attempts: 1; Laryngoscopy Grade: 2; ETT Placement Verified By: Auscultation, Capnometry, Visual; Secured at Teeth: 22 cm; Inserted by: ricco suarez documented in this encounter Social History Tobacco Use Types Packs/Day Years [...] on file documented as of this encounter OR Notes Anesthesia Postprocedure Evaluation - Sites, Av Cintron MD - 05/06/2021 2:15 PM EDT Department of Anesthesiology Post-procedure Note Patient: Dominick Castro Procedure Summary Date: 05/06/21 Room / Location: [address] MAIN OR Anesthesia Start: 744 Anesthesia Stop: 1321 Procedures: PROSTATE SEED IMPLANT PROCEDURE (WRVU 13.46) (N/A Perineum) CYSTO, REMOVAL OF STENT, FOREIGN BODY OR CALCULUS, SIMPLE (WRVU 2.81) (N/A Ureter) Diagnosis: Prostate CA (PROSTATE CA) Surgeons: Og Flynn MD; Beronica Calixto MD Responsible Provider: Av Lee MD Anesthesia Type: general ASA Status: 2 All Anesthesia Providers: Anesthesiologist: Av Lee MD CMA: Maldonado Suarez CRNA Vitals Value Taken Time BP 151/83 05/06/21 1400 Temp 36.4 ??C (97.5 ??F) 05/06/21 1400 Pulse 55 05/06/21 1414 Resp 17 05/06/21 1414 SpO2 96 % 05/06/21 1414 Pain Level 0 05/06/21 1325 Vitals shown include unvalidated device data. Patient Location: PACU/[facility] Level of Consciousness: Awake and Alert Pain Management: PONV: None Cardiovascular Status: At Baseline Respiratory Status: At Baseline Postoperative Fluid Status: Intravascular EUvolemia Possible Anesthetic Complications: NONE apparent at time of evaluation Final Primary Anesthesia Type: General (The anesthetic type performed was the same as planned.) Comments: I have evaluated the patient in the postoperative period. The time of my evaluation may not match the note time. The patient has no major complaints and there are no serious complications evident. Anesthesia Preprocedure Evaluation - Av Lee MD - 05/06/2021 6:26 AM EDT Pre-Anesthesia Evaluation for: Dominick Castro a 65 y.o. male. Procedure(s): PROSTATE SEED IMPLANT PROCEDURE (WRVU 13.46) Patient Active Problem List Diagnosis ??? Malignant neoplasm of prostate ??? Obesity (BMI 30.0-34.9) ??? Chronic prescription opiate use Per PDMP Jul 24, 2020: Percocet 5/325, #2 per day prescribed by his PCP. ??? s/p revision L REGGIE 01/12/20 (Dr. Lewis) ??? Migraines ??? Rotator cuff tear Past Medical History: Diagnosis Date ??? Chronic [...] (WRVU 11.47) performed by Ramy Porter MD [facility] MAIN OR ??? PRO REVISE TOTAL HIP REPLACEMENT Left 01/12/2020 @TOTAL HIP REVISION ARTHROPLASTY, COMPLETE (WRVU 30.28) performed by Jack Lewis MD at [facility] MAIN OR ??? PRO REVISE TOTAL HIP REPLACEMENT Right 07/26/2020 @TOTAL HIP REVISION ARTHROPLASTY, COMPLETE (WRVU 30.28) performed by Jack Lewis MD at [facility] MAIN OR ??? PROSTATE BIOPSY 07/17/21 at [facility] Social History Tobacco Use ??? Smoking status: Never Smoker ??? Smokeless tobacco: Never Used Substance Use Topics ??? Alcohol use: Not Currently Alcohol/week: 1.0 standard drink Types: 1 Standard drinks or equivalent per week Comment: Occasionally, 0-1 drinks a week Social History Substance and Sexual Activity Drug Use No No Known Allergies Medications: MAR and/or home medications have been reviewed. Physical Exam: Preprocedure Vitals Current as of 05/06/21 0626 No BP, pulse, respiration, SpO2, or temperature recorded. Height: Weight: BMI: IBW: Airway Assessment: Mallampati: II TM distance: >3 FB Neck ROM: full Cardiovascular Assessment: Rhythm: regular Pulmonary Assessment: breath sounds clear to auscultation Dental Assessment: Misc Assessment: IV access: Peripheral line Last Filed Perioperative Cognitive Screening Value Time User AD8 Total Score: 0 04/25/2021 12:00 PM Khoa García RN AD8 Informant: Other Informant 04/25/2021 12:00 PM Khoa García RN CFS Frailty Score: 3 04/25/2021 12:00 PM Khoa García RN Anesthesia Plan: ASA 2 general, with a(n) intravenous induction I have seen and examined the patient. I have reviewed the medical record and pertinent laboratory information. I have noted the major medical issues as outlined in the problem list including chronic opioid use/chronic pain. He is appropriately NPO and denies GERD symptoms. I have reviewed risks from minor to major as outlined in the anesthesia consent form. I have highlighted risks related to airway management, surgical positioning, and perioperative opioid therapy. He is aware that our care model is based on a team and I will be working with either a CMA or resident physician. A resident physician means a physician who is in training to be an anesthesiologist. The patient acknowledged these risks and would like to proceed with the anesthesia plan. Balanced [place]. Region - Other Informed Consent: Anesthetic plan and risks discussed with patient. Plan discussed with CMA. Anesthesia Screening documented in this encounter Plan of Treatment Upcoming Encounters Date Type Specialty Care Team Description 07/08/2022 Office Visit Radiation Oncology Shelley Kimble, [facility] RADIATION ONCWARNER [place], [place] [address] (Wo rk) documented as of this encounter Visit Diagnoses Not on filedocumented in this encounter Administered Medications Inactive Administered Medications - up to 3 most recent administrations Medication Order MAR Action Action Date Dose Rate Site dexamethasone (Decadron) injection Given 05/06/2021 8:00 AM EDT 8 mg Intravenous, PRN, Starting on Thu05/06/21 at 0800, Until Thu05/06/21 at 1322, Anesthesia Intra-op, Routine ePHEDrine sulfate (5 mg/mL) multi-dose Given 05/06/2021 8:52 AM EDT 5 mg injection Intravenous, PRN, Starting on Thu05/06/21 at 0852, Until Thu05/06/21 at 1322, Anesthesia Intra-op, Routine fentaNYL (pf) (50 mcg/mL) multi-dose Given 05/06/2021 10:46 AM E DT 50 mcg injection Intravenous, PRN, Starting on Thu05/06/21 at 0750, Until Thu05/06/21 at 1322, Anesthesia Intra-op, Routine Given 05/06/2021 7:50 AM EDT 100 mcg glycopyrrolate (Robinul) (0.2 mg/mL) Given 05/06/2021 1:11 PM ED T 0.4 mg multi-dose injection Intravenous, PRN, Starting on Thu05/06/21 at 1311, Until Thu05/06/21 at 1322, Anesthesia Intra-op, Routine HYDROmorphone (Dilaudid) (2 mg/mL) Given 05/06/2021 11:59 AM EDT 0.4 mg multi-dose injection solution Intravenous, PRN, Starting on Thu05/06/21 at 1052, Until Thu05/06/21 at 1322, Anesthesia Intra-op, Routine Given 05/06/2021 10:52 AM EDT 0.4 mg lactated ringers infusion New Bag 05/06/2021 10:53 AM EDT Intravenous, CONTINUOUS PRN, Starting on Thu05/06/21 at 0745, Until Thu05/06/21 at 1322, Anesthesia Intra-op New Bag 05/06/2021 7:45 AM EDT levoFLOXacin (Levaquin) 750 mg in dextrose 5% Given 7:59 AM EDT 750 mg 150 mL infusion 750 mg, Intravenous, at 100 mL/hr, EVERY 24 HOURS, First dose on Thu05/06/21 at 0715, Until Discontinued, Day of Surgery (Day of Procedure), Routine, Indication for (Active or Suspected): Prophylaxis, Restricted Antibiotic: Please indicate the most appropriate choice: Pre-approved indication (state the indication in comments field) lidocaine (pf) (Xylocaine) (20 mg/mL) 2% Given 05/06/2021 7:50 A M EDT 100 mg injection syringe Intravenous, PRN, Starting on Thu05/06/21 at 0750, Until Thu05/06/21 at 1322, Anesthesia Intra-op, Routine midazolam (pf) (Versed) (1 mg/mL) multi-dose Given 05/06/2021 7: 28 AM EDT 2 mg injection Intravenous, PRN, Starting on Thu05/06/21 at 0728, Until Thu05/06/21 at 1322, Anesthesia Intra-op, Routine neostigmine (Bloxiver) (1 mg/mL) injecti on Given 05/06/2021 1:11 PM EDT 2 mg Intravenous, PRN, Starting on Thu05/06/21 at 1311, Until Thu05/06/21 at 1322, Anesthesia Intra-op, Routine ondansetron (pf) (Zofran) (2 mg/mL) inje ction Given 05/06/2021 12:17 PM EDT 4 mg Intravenous, PRN, Starting on Thu05/06/21 at 1217, Until Thu05/06/21 at 1322, Anesthesia Intra-op, Routine propofoL (Diprivan) 10 mg/mL bolus injection Given 7:50 AM EDT 300 mg (Anesthesia) Intravenous, PRN, Starting on Thu05/06/21 at 0750, Until Thu05/06/21 at 1322, Anesthesia Intra-op propofoL (Diprivan) infusion New Bag 05/06/2021 7:50 AM 30 mcg/kg/min 17.802 mL/hr Intravenous, CONTINUOUS PRN, EDT Starting on Thu05/06/21 at 0750, Until Thu05/06/21 at 1322, Anesthesia Intra-op, Routine rocuronium (Zemuron) (10 mg/mL) multi-dose Given 05/06/2021 10:4 6 AM EDT 20 mg injection Intravenous, PRN, Starting on Thu05/06/21 at 0751, Until Thu05/06/21 at 1322, Anesthesia Intra-op, Routine Given 05/06/2021 7:51 AM EDT 50 mg documented in this encounter Care Teams Punch Out Crew Member Relationship Specialty Start Date End Date Grover Herman MD PCP - General Family Medicine 07/19/20 [address] [place] [address] documented as of this encounter
--- OUTSIDE RECORDS SUMMARY | 2022-07-01 13:45 | XMS_ITS | Encounter Summary ---
:1955 Author Organization [facility] [place] [address] Care Team Providers Name Role Phone Grover Herman MD Primary Care Provider Reason for Referral Diagnostic Test (Routine) - Pending Review Specialty Diagnoses / Procedures Referred By Contact Refer red To Contact Radiology Diagnoses Malignant neoplasm of prostate Og Flynn MD [facility] Rad Mri Procedures MRI Pelvis wo (Prostate) [facility] [place] [address] [place] [address] Referral ID Status Reason Start Expiration Visits Visits Date Date Requested Authorized [id number] Pending Specialty 05/09/2021 11/09/2022 1 1 Review Service Requested Consultation (Routine) - Closed Specialty Diagnoses / Procedures Referred By Contact Refer red To Contact Radiation Oncology Diagnoses Malignant neoplasm of prostate Og Flynn MD [facility] Rad Onc Office Procedures Simulation for Radiation Therapy Planning [facility] [place] [address] [place] [address] Phone: Fax: Referral ID Status Reason Start Date Expiration Date Visits V isits Requested Authorized [id number] Closed Consult, 05/09/2021 05/09/2022 26 26 Test & Treat Encounter Details Date Type Department Care Team Description 05/09/2021 Orders Only Radiation Oncology at [place], Terry Chu alignant neoplasm of [facility] prostate [place] [address] RADIATION ONCOLOGY [phone] [place], [place] [address] Social History Tobacco Use Types Packs/Day Years [...] Office Visit Radiation Oncology Shelley Kimble, [facility] [place] [address] (Wo rk) Scheduled Orders Name Type Priority Associated Diagnoses Order S chedule Simulation for Procedures Routine Malignant neoplasm of Orde red: 05/09/2021 Radiation Therapy prostate Planning documented as of this encounter Results MRI Pelvis wo (Prostate) [...] who have questions please contact the health daycare teacher that requested your imaging first. ? Electronically signed by: Oren gonzales MD, [facility] ([phone]), at 06/19/2021 8:34 AM Narrative 06/19/2021 8:34 AM EDT EXAMINATION: MRI [...] ho have questions please contact the health daycare teacher that requested your imaging first. Electronically signed by: Oren gonzales MD, [facility] ([phone]), at 06/19/2021 8:34 AM Og Flynn MD IMG MRI ORDERABLES documented in this encounter Visit Diagnoses Diagnosis Malignant neoplasm of prostate Malignant neoplasm of prostate documented in this encounter Care Teams Clinical Trial Coordinator Relationship Specialty Start Date End Date Grover Herman MD PCP - General Family Medicine 07/19/20 [address] [place] [address] documented as of this encounter
--- OUTSIDE RECORDS SUMMARY | 2022-07-01 13:46 | XMS_ITS | Encounter Summary ---
:1955 Author Organization [facility] [place] [address] Care Team Providers Name Role Phone Grover Herman MD Primary Care Provider Encounter Details Date Type Department Care Team Description 08/13/2020 Ancillary Procedure Radiology Library at Joe Herman MD [facility] [address] [place] [address] [facility] [phone] [place] [address] (Work) [phone] Social History Tobacco Use Types Packs/Day Years Used Date Never Smoker 0 0 Smokeless Tobacco: Never Used Alcohol Use Standard Drinks/Week Comments Yes 1 (1 standard drink = 0.6 oz [...] Office Visit Radiation Oncology Shelley Kimble APRN [facility] RADIATION ONCWARNER [place], [place] [address] (Wo rk) documented as of this encounter Procedures Procedure Name Priority Date/Time Associated Diagnosis Comme nts FILM LIBRARY Routine 08/13/2020 12:00 AM Results for this STORAGE ONLY DX HIP EST procedur e are in the results section. documented in this encounter Results Film Library- Storage Only DX Hip (08/13/2020 12:00 AM EST) Specimen (Source) Anatomical Location Collection Method / Collectio n Time Received Time / Laterality Volume Narrative RAD - 08/14/2020 9:23 AM EST This exam is auto-finalizing. It's purpo se is for storage only. Grover Herman MD IMG FILM LIBRARY ORDERABLES Performing Organization Address City/State/ZIP Code Phon e Number [place], [place] documented in this encounter Visit Diagnoses Not on filedocumented in this encounter Care Teams Executive Manager Relationship Specialty Start Date End Date Grover Herman MD PCP - General Family Medicine 07/19/20 [address] [place] [address] documented as of this encounter
--- OUTSIDE RECORDS SUMMARY | 2022-07-01 13:46 | XMS_ITS | Encounter Summary ---
:1955 Author Organization [place] [address] Care Team Providers Name Role Phone Grover Herman MD Primary Care Provider Reason for Visit Auth/Cert Specialty Diagnoses / Procedures Referred By Contact Refer red To Contact Diagnoses BILIARY COLIC Procedures PRO LAP, CHOLECYSTECTOMY/GRAPH LAPAROSCOPIC CHOLECYSTECTOMY WITH CHOLANGIOGRAM (WRVU 11.47) Referral ID Status Reason Start Date Expiration Date Visits Requ ested Visits Authorized [id number] 1 1 Encounter Details Date Type Department Care Team Description 01/07/2021 Surgery Main Operating Room Ramy Porter LAPA ROSCOPIC Padma Garsia MD CHOLECYSTECTOMY WITH [facility] CHOLANGIOGRAM (WRVU 11.47) [facility] DR Gutierrez [place] [address] [place] [address] [phone] Social History Tobacco Use Types Packs/Day Years [...] Sign Reading Time Taken Comments Blood Pressure 153/83 01/07/2021 9:02 AM EDT Pulse 60 01/07/2021 9:02 AM EDT Temperature 36.5 ??C (97.7 ??F) 01/07/2021 9:02 AM EDT Respiratory Rate 18 01/07/2021 9:02 AM EDT Oxygen Saturation 98% 01/07/2021 9:02 AM EDT Inhaled Oxygen Concentration - - Weight - - Height - - Body Mass Index - - documented in this encounter Discharge Instructions Discharge InstructionsPhiHeidi parmar RN - 01/07/2021 1:20 PM EDT Next dose of acetaminophen (tylenol) can be taken at _3:15pm . Next dose of ibuprofen (motrin) can be taken at _6:45pm . Patient InstructionsFoBeck epps MD - 01/07/2021 12:43 PM EDT [facility] Department of Minimally InvasiveSurgery Discharge Instructions CALL YOUR PHYSICIAN'S OFFICE IF: ??? You have a fever greater than 101 degrees Farenheit (38.3C) within one month of your surgery. ? ? You have diarrhea or vomiting for >24 hours, stop having bowel movements and/or passing flatus, have pain with urination. ??? You have worsening pain, not controlled with your pain medication. ??? You develop redness, swelling, or new drainage from your wound. Medications: [x] Pain Control [x] Non-narcotic pain medication - We recommend alternating with tylenol 650mg and ibuprofen 400-600mg every 6 hours as needed for pain (i.e.; tylenol at 12pm, ibuprofen 3pm, tylenol 6pm, ibuprofen 9pm). - Do not take more than 3,000mg (3g) of tylenol in 24 hours. [x] Other Medication(s) - The remainder of your medications are listed in the first section of the After Visit Summary. Driving Restrictions: - No driving if you are too sore from surgery to enter or exit your vehicle comfortably, or if you are too sore to easily check your blind spot. No driving while using narcotic pain medications. Shower: - It is ok to shower in 48 hrs. You can shower per usual routine and let soapy water run over your incision. Pat incision dry with a clean, dry towel. Do not submerge the wound under water (no swimming or soaking) for at least 6 weeks, or until approved by your surgeon. Diet: [x] You have been cleared to resume your regular diet - We recommend eating a regular healthy diet (i.e.; fresh fruits, vegetables and fiber-containing foods will assist in wound healing,) Activity: - It is normal to feel tired after surgery/hospitalization. Be as active as tolerated as this will improve recovery and prevent blood clots. - You should avoid any heavy lifting for 4 weeks after surgery. A gallon of milk is a good estimateof the maximum you should be lifting while your wounds heal. -We recommend taking several slow, short walks each day for the first two weeks, and gradually increase your distance. We recommend at least 4 times a day. Wound/Incision Care: Closure: Your skin incisions are closed with: [x] Sutures - If your sutures are visible, they will need to be removed at a follow up appointment.If they are not visible, then they are underneath the skin and will dissolve. You may also have Steri strips covering your skin, which are strips of white tape that should fall off after ~10 days (if not, please remove manually). You may shower with them on. Infection: Observe for changes and alert the clinic if new/worsening redness or drainage. Things to avoid: Do not use creams, oils, or ointments on the wound. Keep wound open to air if it is not draining. Who to call? If you have concerns or questions: - During the day, it is best to call the General Surgery Clinic to speak with the Surgery nurses. The number is [phone]. - During the night or weekends call the [facility] site supervising technical operator at [phone] and ask to speak to the surgery resident online media buyer for general surgery. Please note: Your surgeon may not be Film Painter, especially during the night or on weekends, so be ready to describe yourself and your surgery when you call. Follow up appointments: Future Appointments Date Time Provider Department Center 02/06/2021 3:20 PM Ramy Porter MD [facility] SURG [facility] [x] Follow-up appointment with General Surgery has already been scheduled. Please call the clinic [phone] to confirm or reschedule. [] A request for a follow-up appointment has been made and you should receive information via phone/mail in the next week. If you do not hear anything, please call the clinic at [phone] to confirmor reschedule. If you need a prior authorization, please call the General Surgery Clinic nurses [phone] for prior authorizations assistance documented in this encounter Medications at Time of Discharge Medication Sig Dispensed Refills Start Date End Date oxyCODONE-acetaminophen 1 tablet every 4 hours 0 08/20/2020 (Percocet) 5-325 mg as needed (hip and Tablet shoulder pain ( sometimes takes only 1/2 tab)). documented as of this encounter Progress Notes Heidi Nails RN - 01/07/2021 2:30 PM EDT Patient discharge to home. IV removed, site benign. RN discussed pain management with patient, pain tolerable. Patient has all belongings and supplies needed. Patient received After Visit Summary and any prescriptions, or was directed to pick them up at pharmacy if applicable. These were reviewed, patient verbalizes understanding of AVS. All questions answered. Patient encouraged to call with questions or concerns. Patient discharged to home with family via wheelchair to east entrance. documented in this encounter H&P Notes Beck Velázquez MD - 01/07/2021 9:59 AM EDT H&P 24hr interval update/Pre-operative note Please see Dr. Porter's note from clinic on 12/19/20 for further information. ID: Dominick Castro is a 65 y.o. male with symptomatic cholelithiasis who presents to [facility] for lap cholecystectomy with IOC. S: Dominick Castro endorses no recent change in health. Denies any fever, chills, cough, congestion, change in bowel habits. Prior to arrival today, Dominick Castro was in a normal state of health. O: Physical Exam: Patient Vitals for the past 24 hrs: Temp Pulse Resp BP SpO2 O2 Device 01/07/21 0902 36.5 ??C (97.7 ??F) 60 18 153/83 98 % RA Gen: NAD CVS: Reg rate Pulm: non labored breathing on RA Abd: soft, nt/nd Ext: wwp Neuro: awake, alert, oriented A/P: Dominick Castro is a 65 y.o. male who presents for planned lap tushar with IOC. Will proceed withplanned operation. Beck Velázquez MD 01/07/2021 General Surgery Pgr. [id number] documented in this encounter Miscellaneous Notes Op Note - Ramy Porter MD - 01/07/2021 11:03 AM EDT [facility] Operative Note Patient Name: Dominick Castro : [id number] MR#: [id number] Case Date: 01/07/2021 Surgeon: Surgeon(s) and Role: * Ramy Porter MD - Primary * Beck Velázquez MD - Resident Preoperative diagnosis: BILIARY COLIC Postoperative diagnosis: BILIARY COLIC Procedure(s) (LRB): LAPAROSCOPIC CHOLECYSTECTOMY WITH CHOLANGIOGRAM (WRVU 11.47) (N/A) Indications For Procedure: The patient is a 65-year-old male with a history of biliary colic, confirmed to have gallstones on ultrasound. Following review of his therapeutic options, he has elected to undergo a laparoscopic cholecystectomy. Findings: The patient was noted to have evidence of inflammation to his gallbladder in the past as evidenced by omental adhesions to the gallbladder. He underwent a laparoscopic cholecystectomy with intraoperative cholangiogram. Cholangiogram showed no filling defects in the bile system and good flow of dye into the duodenum with normal bile duct anatomy. Description of Procedure: The patient was brought to the Operating Room and placed in the supine position. Following uneventful induction of general endotracheal anesthesia, Venodyne stockings and an orogastric tube were placed. His abdomen was prepped and draped in the usual sterile fashion. A small i ncision was made in the base of the umbilicus followed by insertion of a Veress needle in the abdominal cavity and pneumoperitoneum to 15 mmHg pressure was obtained without difficulty. The first trocarwas a 10 mm trocar placed through the umbilicus. Through this, a 30 degree laparoscope was inserted.All remaining trocars were inserted under direct visualization. The next trocar was a 10 mm trocar placed in the midline just below the xiphoid. The next trocar was a 5 mm trocar placed in the anterioraxillary line just below the costal margin. Through this trocar, a grasping forceps was placed on the fundus of the gallbladder where it was then retracted cephalad. The last trocar was a 5 mm trocar placed in the midclavicular line below the costal margin. Using appropriate grasping instruments, the peritoneum overlying the triangle of Calot was incised. The cystic duct/gallbladder junction was identified, dissected circumferentially. A clip was then placed on the cystic duct/gallbladder junction and an intraoperative cholangiogram performed using fluoroscopy, which showed good flow of dye into the duodenum. There were no intra- or extrahepatic bile duct filling defects. The biliary anatomy appeared normal. Following completion of the cholangiogram, the catheter was removed. Two clips were then placed proximally on the cystic duct and the duct divided. The cystic artery was identified medially and was dissected circumferentially. Two clips were placed proximally and one distally, and the artery was divided. Remaining soft tissue attachments to the gallbladder to the liver bed were then divided using electrocautery. The gallbladder bed was inspected and excellent hemostasis was obtained. The gallbladder was extracted through the epigastric trocar site. The abdomen was again irrigated and excellent hemostasis was assured. All remaining trocars were then removed and the pneumoperitoneum was evacuated. All trocar sites were closed at the skin level using a running subcuticular closure of 4-0 Vicryl followed by Steri-Strips followed by Band-Aids. Overall, the patient tolerated the procedure well and was taken to the Recovery Room postoperatively in stable condition. Attestation: Case Date: 01/07/2021 I performed this procedure without the involvement of a resident. RAMY PORTER MD 01/07/2021 documented in this encounter Plan of Treatment Upcoming Encounters Date Type Specialty Care Team Description 07/08/2022 Office Visit Radiation Oncology Shelley Kimble, TECHNICAL EDITOR [facility] [place] [address] (Wo rk) documented as of this encounter Procedures Procedure Name Priority Date/Time Associated Comments Diagnosis SURGICAL PATHOLOGY Routine 01/07/2021 12:07 Resul ts for this REPORT PM EDT procedure are i n the results section. SPECIMEN TO PATHOLOGY Routine 01/07/2021 12:07 Re sults for this PM EDT procedure are i n the results section. XR FLUORO NO RAD <1HR - Routine 01/07/2021 11:51 Results for this OR USE AM EDT procedure are i n the results section. LAPAROSCOPIC 01/07/2021 10:32 BILIARY COLIC CHOLECYSTECTOMY WITH AM EDT CHOLANGIOGRAM (WRVU 11.47) documented in this encounter Results Surgical Pathology Report (01/07/2021 12:07 PM EDT) Component Value Ref Test Analysis Performed At [facility] Range Method Time Signature Surgical [id number] ? Location: [facility]; [facility] Report The signing pathologist has (i) examined the relevant preparation(s) for the [facility] specimen(s) and (ii) rendered or confirmed the diagnosis(es) . HOSPITAL LABORATORY . ?Surgic al Pathology DIAGNOSIS Gallbladder and contents: - ??Cholelithiasis. Electronically signed by: ?Bear Phillips MD Verified: ??01/11/2021 14:30 ??Pathologist Performed at: ??-[facility] Dept. of Pathology, [place], [place] SPECIMEN(S) SUBMITTED A - Gallbladder and contents, excision (1) CLINICAL INFORMATION Biliary colic SPECIMEN PROCESSING A - Labeled/Fixative: Gallbladder and contents, fresh. Quantity/Size: ??Single, 7.2 x 3.6 x 2.4 cm. Specimen Description: Gallbladder, received intact. Serosa: Glistening, wasserman-yellow Adventitia: Roughened, wasserman-brown Lumen contents: Wasserman-yellow, viscous, bile. Gallstones: Present: Multiple, yellow gallstones ranging fro m, 0.2-1.3 cm Mucosa: Wasserman-green with yello w-white mottling] loosely adherent and free floating yellow flecks Wall: 0.2 cm thick. Duct: 0.3 cm, patent. Ink Designation: The hepatic margin is inked black Sections/Processing: Freight Representative sections in 1 cassettes as follows: ?A1: ??cystic duct margin and billing customer service representative mucosa. ??pps Specimen (Source) Anatomical Collection Method Collection Time Re ceived Time Location / / Volume Laterality 01/07/2021 12:07 PM EDT Ramy Porter MD PATHOLOGY/CYTOLOGY ORDERABLE S Performing Organization Address City/State/ZIP Code Phon e Number [address] Specimen to Pathology (01/07/2021 12:07 PM EDT) Specimen Anatomical Collection Method Collection Time Receive d Time (Source) Location / / Volume Laterality AP Specimen 01/07/2021 12:07 01/07/2021 PM EDT 12:07 PM EDT Narrative [facility] - 01/07/2021 12:07 PM EDT Specimen requisition ordered. ??Separate Pathology report to follow Ramy Porter MD PATHOLOGY/CYTOLOGY ORDERABLE S Performing Organization Address City/[facility]/ZIP Code Phon e Number [address] XR Fluoro No Rad <1Hr - OR Use (01/07/2021 11:51 AM EDT) Specimen (Source) Anatomical Location Collection Method / Collectio n Time Received Time / Laterality Volume Narrative [facility] - 01/07/2021 11:52 AM EDT This exam is auto-finalizing. No interpr etation was done. Ramy Porter MD IMG FLUORO ORDERABLES Performing Organization Address City/State/ZIP Code [facility] e Number [facility] [place], [place] documented in this encounter Visit Diagnoses Not on filedocumented in this encounter Administered Medications Inactive Administered Medications - up to 3 most recent administrations Medication Order MAR Action Action Date Dose Rate Site acetaminophen (Tylenol) tablet Given 01/07/2021 9:11 AM EDT 1,00 0 mg 1,000 mg 1,000 mg, Oral, ONCE, 1 dose, On Thu01/07/21 at 0930, Administer with SIP of H2O only., Day of Surgery (Day of Procedure), Routine BUpivacaine (pf) (Marcaine) Given 01/07/2021 12:15 PM 10 mLs 19- Surgical Site (2.5 mg/mL) 0.25% injection EDT ONCE PRN, Starting on Thu01/07/21 at 1113, Until Thu01/07/21 at 1631, Intra-Operative (Intra-Procedure), Routine Given 01/07/2021 11:13 AM EDT 3.5 mLs 19- Surgical Site fentaNYL (pf) (50 mcg/mL) multi-dose Given 01/07/2021 1:10 PM ED T 25 mcg injection 12.5-25 mcg 12.5-25 mcg, Intravenous, EVERY 5 MIN PRN, Starting on Thu01/07/21 at 1138, Until Thu01/07/21 at 1631, Pain, Give 12.5 mcg every 5 minutes PRN for mild to moderate pain (1-5) Give 25 mcg every 5 minutes PRN for moderate to severe pain (6-10). Hold for respiratory rate less than 10 per minute. Maximum dose 250 mcg over one hour. If ordered with hydromorphone or morphine, give hydromorphone or morphine first and use fentanyl for breakthrough pain., Routine Given 01/07/2021 12:57 PM EDT 25 mcg Given 01/07/2021 12:51 PM EDT 25 mcg ibuprofen (Advil;Motrin) tablet 600 mg Given 01/07/2021 12:48 PM EDT 600 mg 600 mg, Oral, EVERY 6 HOURS PRN, Starting on Thu01/07/21 at 1246, Until Thu01/07/21 at 1631, Pain, Administer orally with milk or food to minimize GI irritation. Maximum dose of 3,200 mg from all sources in 24 hours, Routine iohexoL (Omnipaque) (300 Given 01/07/2021 11:48 AM 10 mLs 19- Surgical Site mg/mL) injection solution EDT ONCE PRN, Starting on Thu01/07/21 at 1148, Until Thu01/07/21 at 1631, Intra-Operative (Intra-Procedure), Routine lactated ringers infusion New Bag 01/07/2021 9:10 AM EDT 1,000 mLs 100 mL/hr 1,000 mL, at 100 mL/hr, Intravenous, CONTINUOUS, Starting on Thu01/07/21 at 0930, Until Thu01/07/21 at 1430, Day of Surgery (Day of Procedure) oxyCODONE (Roxicodone) tablet 5 mg Given 01/07/2021 12:48 PM EDT 5 mg 5 mg, Oral, EVERY 4 HOURS PRN, Starting on Thu01/07/21 at 1246, Until Thu01/07/21 at 1631, Pain, Routine prochlorperazine (Compazine) (5 mg/mL) Given 01/07/2021 1:01 PM EDT 5 mg injection 5 mg 5 mg, Intravenous, EVERY 30 MIN PRN, 2 doses, Starting on Thu01/07/21 at 1239, Until Thu01/07/21 at 1430, Nausea, May repeat 5 mg once in 30 minutes. If multiple antiemetics ordered, use ondansetron first and if ineffective use prochlorperazine second and if ineffective use promethazine, PACU Recovery, Routine documented in this encounter Active and Recently Administered Medications Times are shown in EDT. Scheduled Medication Order 01/05/2021 01/06/2021 01/07/2021 acetaminophen (Tylenol) tablet 1,000 mg (COMPLETED) 0911 (Given - Provider: Cayla Doss RN) 1,000 mg, Oral, ONCE, 1 dose, Thu 1 at 0930, Administer with SIP of H2O only., Day of Surgery (Day of Procedure), Routine ceFAZolin (Ancef) 2 g in dextrose 5% 100 mL infusion (COMPLETED) 1103 (Given - Provider: Bryn Forbes MD) 2 g, Intravenous, BLOOD BANK LABORATORY TECHNICIAN TO O.R., 1 dos e, Thu01/07/21 at 1015, Administer over 30 Minutes, Indication for (Active or Suspected): Prophylaxis Continuous Medication Order 01/05/2021 01/06/2021 01/07/2021 lactated ringers infusion (CANCELED) 0910 (New Bag - Provider: Cayla Doss, CHAZ) 1,000 mL, at 100 mL/hr, Intravenous, CON TINUOUS, Starting Thu01/07/21 at 0930, Until Thu01/07/21 at 1430, Day of Surgery (Day of Procedure) PRN Medication Order 01/05/2021 01/06/2021 01/07/2021 BUpivacaine (pf) (Marcaine) (2.5 mg/mL) 0.25% injection (CANCELE D) 1113 (Given - Provider: Ramy Porter MD)1215 (Given - Provider: Beck Velázquez MD - Comment: Injected to lap trocar sites) ONCE PRN, Starting Thu01/07/21 at 1113, Until Thu01/07/21 at 1631, Intra- Operative (Intra-Procedure), Routine fentaNYL (pf) (50 mcg/mL) multi-dose injection 12.5-25 mcg 1243 (Given - Provider: Heidi Nails RN)1251 (Given - Provider: Heidi Nails RN)1257 (Given - Provider: Heidi Nails RN)1310 (Given - Provider: Heidi Nails RN) 12.5-25 mcg, Intravenous, EVERY 5 MIN MO N, Starting Thu01/07/21 at 1138, Until Thu01/07/21 at 1631, Pain, Give 12.5 mcg every 5 minutes PRN for mild to moderate pain (1-5) Give 25 mcg every 5 minutes MO N for moderate to severe pain (6-10). Ho ld for respiratory rate less than 10 per minute. Maximum dose 250 mcg over one hour. If ordered with hydromorphone or morphine, give hydromorphone or morphine fir st and use fentanyl for breakthrough pain., Routine ibuprofen (Advil;Motrin) tablet 600 mg 1248 (Given - Provider: Heidi Nails RN) 600 mg, Oral, EVERY 6 HOURS PRN, Startin g Thu01/07/21 at 1246, Until Thu01/07/21 at 1631, Pain, Administer orally with milk or food to minimize GI irritation. Maximum dose of 3,200 mg from all sources in 24 hours, Routine iohexoL (Omnipaque) (300 mg/mL) injection solution (CANCELED) 1148 (Given - Provider: Ramy Porter MD - Comment: 10mL Omnipaque injected into ducts for cholangiogram.) ONCE PRN, Starting Thu01/07/21 at 1148, Until Thu01/07/21 at 1631, Intra- Operative (Intra-Procedure), Routine oxyCODONE (Roxicodone) tablet 5 mg 1248 (Given - Provider: Heidi Nails RN) 5 mg, Oral, EVERY 4 HOURS PRN, Starting Thu01/07/21 at 1246, Until Thu01/07/21 at 1631, Pain, Routine prochlorperazine (Compazine) (5 mg/mL) injection 5 mg (CANCELED) 1301 (Given - Provider: Heidi Nails RN) 5 mg, Intravenous, EVERY 30 MIN PRN, 2 d oses, Starting Thu01/07/21 at 1239, Until Thu01/07/21 at 1430, Nausea, May repeat 5 mg once in 30 minutes. If multiple antiemetics ordered, use ondansetron firs t and if ineffective use prochlorperazin e second and if ineffective use promethazine, PACU Recovery, Routine documented in this encounter Care Teams Site Planner Relationship Specialty Start Date End Date Grover Herman MD PCP - General Family Medicine 07/19/20 [address] [place] [address] documented as of this encounter
--- OUTSIDE RECORDS SUMMARY | 2022-07-01 13:46 | XMS_ITS | Encounter Summary ---
:1955 Author Organization [facility] [place] [address] Care Team Providers Name Role Phone Grover Herman MD Primary Care Provider Encounter Details Date Type Department Care Team Description 12/19/2020 [place] [facility] [place] of right [place] [address] [place] [address] hip arthroplasty, [place] [address] initial encounter [phone] Social History Tobacco Use Types Packs/Day Years [...] 07/08/2022 Office Visit Radiation Oncology Shelley Kimble, ANVIL WORKER [facility] [place], [place] [address] (Wo rk) documented as of this encounter Procedures Procedure Name Priority Date/Time Associated Diagnosis Comme nts XR PELVIS AND HIP 2 Routine 12/19/2020 9:04 AM Failure of righ t Results for this VIEWS RIGHT EDT total hip procedure are i n arthroplasty, the results initial encounter section. documented in this encounter Results XR Pelvis and Hip 2 Views Right (12/19/2020 9:04 AM EDT) Anatomical Region Laterality Modality Pelvis, Hip Right Digital Radiography Specimen (Source) Anatomical Location Collection Method / Collectio n Time Received Time / Laterality Volume Impressions 12/19/2020 9:46 AM EDT Bilateral hip prostheses are present without acute complication. Ongoing healing of the right-sided osteo siddhartha site. Thank you for letting us participate in the care of this patient. ??If you are a health care provider and have any questi ons regarding this report, please contact the number below. ??For patients who have questions please contact the health adult daycare coordinator that requested your imaging first. ? Narrative 12/19/2020 9:46 AM EDT EXAMINATION: XR PELVIS AND HIP 2 VIEWS RIGHT CLINICAL HISTORY: Interval change R REGGIE revision TECHNIQUE: AP pelvis, AP right hip, lateral right h ip COMPARISON: Pelvis September 19, 2020 FINDINGS: A right sided total hip prosthesis is pr esent. The previously identified osteotomy site in the proximal femoral s haft has become slightly less apparent with interval new bone formation. Three cerclage wires are present. The alignment of the prosthesis is unchanged . Also present is a total left hip prosthe sis. Lucency surrounding the femoral stem is unchanged. Procedure Note Og Acosta MD - 12/19/2020 EXAMINATION: XR PELVIS AND HIP 2 VIEWS R IGHT CLINICAL HISTORY: Interval change R REGGIE revision TECHNIQUE: AP pelvis, AP right hip, lateral right h ip COMPARISON: Pelvis September 19, 2020 FINDINGS: A right sided total hip prosthesis is pr esent. The previously identified osteotomy site in the proximal femoral s haft has become slightly less apparent with interval new bone formation. Three cerclage wires are present. The alignment of the prosthesis is unchanged . Also present is a total left hip prosthe sis. Lucency surrounding the femoral stem is unchanged. IMPRESSION Bilateral hip prostheses are present wit hout acute complication. Ongoing healing of the right-sided osteo siddhartha site. Thank you for letting us participate in the care of this patient. If you are a health care provider and have any questi ons regarding this report, please contact the number below. For patients w ho have questions please contact the health adult daycare coordinator that requested your imaging first. Jack Lewis MD IMG DX ORDERABLES documented in this encounter Visit Diagnoses Diagnosis Failure of right total hip arthroplasty, initial encounter documented in this encounter Care Teams Crown Perforator Operator Relationship Specialty Start Date End Date Grover Herman MD PCP - General Family Medicine 07/19/20 [address] [place] [address] documented as of this encounter
--- OUTSIDE RECORDS SUMMARY | 2022-07-01 13:46 | XMS_ITS | Encounter Summary ---
:1955 Author Organization [facility] [place] [address] Care Team Providers Name Role Phone Grover Herman MD Primary Care Provider Reason for Visit Reason Comments Establish Care Consultation (Routine) - Closed Specialty Diagnoses / Procedures Referred By Contact Refer red To Contact General Surgery Diagnoses GALLBLADDER Grover Herman MD [facility] [place] [facility] [address] [place] [address] [place] [address] Phone: Fax: Referral ID Status Reason Start Date Expiration Date Visits Requ ested Visits Authorized [id number] Closed 12/06/2020 12/06/2021 1 1 Encounter Details Date Type Department Care Team Description 12/19/2020 Office Visit General Surgery at [facility] Ramy Porter MD Biliary colic [facility] [place] [address] GENERAL SURGERY [phone] [place], [place] [address] (Wo rk) Social History Tobacco [...] Sign Reading Time Taken Comments Blood Pressure 164/94 12/19/2020 7:54 AM EDT Pulse 62 12/19/2020 7:54 AM EDT Temperature 36.4 ??C (97.6 ??F) 12/19/2020 7:54 AM EDT Respiratory Rate 16 12/19/2020 7:54 AM EDT Oxygen Saturation 98% 12/19/2020 7:54 AM EDT Inhaled Oxygen Concentration - - Weight 101.8 kg (224 lb 6.4 oz) 12/19/2020 7:54 AM EDT Height 180.3 cm (5' 11) 12/19/2020 7:54 AM EDT Body Mass Index 31.3 12/19/2020 7:54 AM EDT documented in this encounter Progress Notes Ramy Porter MD - 12/19/2020 8:00 AM EDT Patient is a 65-year-old gentleman who is referred for possible cholecystectomy. He has had recurring episodes of right upper quadrant discomfort he feels as though this comes on after most meals not as he is eating but a short period of time afterwards. And he points basically to the right upper quadrant over his gallbladder when asked to describe the primary location of his discomfort. When asked to describe how long this been going on he was treated for gluten allergy and in retrospect wonders whether it could actually have been gallbladder symptoms. He has had a recent ultrasound consistent with cholelithiasis but no evidence of acute cholecystitis and was also noted to have a component of fatty liver. He has not had any prior abdominal surgery. He has had prior hip surgery and is due to see an orthopedic surgeon soon for that and also has relatively recently diagnosed prostate cancer for which she is taking Lupron and is leaning towards managing that with radioactive seeds. Today spent 40 minutes with him the entire time in [id number] conversation regarding pathophysiology of gallstonesas well as risks and benefits of surgery. Risks would include possibility of infection possibility of bleeding requiring transfusion possible injury to bile duct or intestine in a roughly 2% chance of having to convert to the open surgery. Overall he seems understand would like to proceed we will get him a date for surgery at some point in near future in addition given the fatty liver I gave him a copy of a low-fat preop diet and strongly urged compliance for 2 weeks prior to the date of surgery. documented in this encounter Plan of Treatment Upcoming Encounters Date Type Specialty Care Team Description 07/08/2022 Office Visit Radiation Oncology Shelley Kimble, SENIOR ACCOUNT CLERK [facility] RADI[facility] [place], [place] [address] (Wo rk) documented as of this encounter Visit Diagnoses Diagnosis Biliary colic Calculus of gallbladder without mention of cholecystitis or obstruction documented in this encounter Care Teams Cylinder Sander Operator Relationship Specialty Start Date End Date Grover Herman MD PCP - General Family Medicine 07/19/20 [address] [place] [address] documented as of this encounter
--- OUTSIDE RECORDS SUMMARY | 2022-07-01 13:46 | XMS_ITS | Encounter Summary ---
:1955 Author Organization [facility] [place] [address] Care Team Providers Name Role Phone Grover Herman MD Primary Care Provider Encounter Details Date Type Department Care Team Description 08/22/2020 [place] [facility] [place], History of total hip arthrop lasty, bilateral; [address] [place] [address] SANDERSON History of total hip arthroplasty, right [facility] [id number] ORTHOPAEDIC SURGERY [place], [place] [address] Social History Tobacco Use Types [...] Sig Dispensed Refills Start Date End Date oxyCODONE-acetaminophe 1 tablet every 4 hours 0 1 10/21/2019 n (Percocet) 5-325 mg as needed (hip and Tablet shoulder pain ( sometimes takes only 1/2 tab)). aspirin EC 81 mg Take 1 tablet by mouth 60 tablet 0 020 08/26/2020 Tablet, Delayed 2 times daily for 30 Release (E.C.) days. gabapentin (Neurontin) Take 1 capsule by 30 capsule 0 201908/26/2020 300 mg Capsule mouth nightly for 30 days. polyethylene glycoL Take 17 g by mouth 0 07/27/20 20 08/26/2020 (Miralax) 17 gram daily as needed (For Powder in Packet constipation) for up to 30 days. naproxen (NAPROSYN) Take 1 tablet by mouth 84 tablet 0 07/1509/07/2020 500 mg Tablet 2 times daily (with meals) for 42 days. omeprazole (PriLOSEC) Take 1 capsule by 42 capsule 0 020 09/07/2020 20 mg Capsule, Delayed mouth daily for 42 Release(E.C.) days. senna (Senna) 8.6 mg Take 1 tablet by mouth 0 08/26/2020 Tablet 2 times daily as needed for Constipation for up to 30 days. oxyCODONE (Roxicodone) Take 1-2 tablets by 40 tablet 0 07/1509/28/2020 5 mg Tablet mouth every 4 hours as needed for Pain for up to 40 doses. documented as of this encounter Plan of Treatment Upcoming Encounters Date Type Specialty Care Team Description 07/08/2022 Office Visit Radiation Oncology Shelley Kimble, J[facility]DAN [facility] RADIATION ON[facility] [place], [place] [address] (Wo rk) documented as of this encounter Procedures Procedure Name Priority Date/Time Associated Diagnosis Comme nts XR PELVIS AND HIP 2 Routine 08/22/2020 9:50 AM History of tota l hip Results for this VIEWS RIGHT EST arthroplasty, procedure are in bilateral the results History of total hip section . arthroplasty, right documented in this encounter Results XR Pelvis and Hip 2 Views Right (08/22/2020 9:50 AM EST) Anatomical Region Laterality Modality Pelvis, Hip Right Digital Radiography Specimen (Source) Anatomical Location Collection Method / Collectio n Time Received Time / Laterality Volume Impressions 08/22/2020 10:24 AM EST Status post revised bilateral total hip arthroplasty with cerclage wires at the right femoral stem component with unchan ged 14 mm separation of the proximal femoral diaphysis. This is unchanged fro m 08/13/2020 but increased compared to 07/26/2020. Thank you for letting us participate in the care of this patient. For questions regarding this report, please contact e number below. ? Electronically signed by: JUVENTINO VINES MD, [facility] ([phone]), at 08/22/2020 10:24 AM Narrative 08/22/2020 10:24 AM EST EXAMINATION: XR PELVIS AND HIP 2 VIEWS RIGHT CLINICAL HISTORY: S/p right REGGIE TECHNIQUE: 3 views of the pelvis and hips COMPARISON: Pelvis radiograph 08/13/2020, 07/26/2020 and 02/08/2020 FINDINGS: Patient is status post revised bilateral total hip arthroplasty with cerclage wires along the right femoral stem compo nent. Unchanged lucency in the proximal femur which measures approximately 14 mm , stable from 08/13/2020 but increased when compared to 07/26/2020. Hardware is unchanged in alignment. No dislocation. Heterotopic bone is again seen at the la teral aspect of the right femoral acetabular joint. Procedure Note Juventino Vines MD - 08/22/2020 EXAMINATION: XR PELVIS AND HIP 2 VIEWS R IGHT CLINICAL HISTORY: S/p right REGGIE TECHNIQUE: 3 views of the pelvis and hips COMPARISON: Pelvis radiograph 08/13/2020, 07/26/2020 and 02/08/2020 FINDINGS: Patient is status post revised bilateral total hip arthroplasty with cerclage wires along the right femoral stem compo nent. Unchanged lucency in the proximal femur which measures approximately 14 mm , stable from 08/13/2020 but increased when compared to 07/26/2020. Hardware is unchanged in alignment. No dislocation. Heterotopic bone is again seen at the la teral aspect of the right femoral acetabular joint. IMPRESSION Status post revised bilateral total hip arthroplasty with cerclage wires at the right femoral stem component with unchan ged 14 mm separation of the proximal femoral diaphysis. This is unchanged fro m 08/13/2020 but increased compared to 07/26/2020. Thank you for letting us participate in the care of this patient. For questions regarding this report, please contact e number below. Electronically signed by: JUVENTINO VINES MD, [facility] ([phone]), at 08/22/2020 10:24 AM Jack Lewis MD IMG DX ORDERABLES documented in this encounter Visit Diagnoses Diagnosis History of total hip arthroplasty, bilat eral History of total hip arthroplasty, right documented in this encounter Care Teams Internet Network Specialist Relationship Specialty Start Date End Date Grover Herman MD PCP - General Family Medicine 07/19/20 [address] [place] [address] documented as of this encounter
--- OUTSIDE RECORDS SUMMARY | 2022-07-01 13:46 | XMS_ITS | Encounter Summary ---
:1955 Author Organization [facility] [place] [address] Care Team Providers Name Role Phone Grover Herman MD Primary Care Provider Reason for Visit Consultation (Routine) - Closed Specialty Diagnoses / Procedures Referred By Contact Refer red To Contact Radiation Oncology Diagnoses Malignant neoplasm of prostate José Luis Rodriguez Stj Rad Onc Treatment MD [address] [place] [address] D [place], [place] UROLOGY DEPT [id number] [place] [address] Referral ID Status Reason Start Date Expiration Date Visits V isits Requested Authorized [id number] Closed Consult, 09/04/2020 09/04/2021 1 1 Test & Treat Encounter Details Date Type Department Care Team Description 09/28/2020 TH Visit Radiation Oncology Teresa, Sherman S, Linda gnmoose neoplasm of (TeleHealth) at [facility] prostate [address] [place] [address] RADIATION ONCOL OGY [id number] [place], [place] [phone] [id number] Social History Tobacco Use Types Packs/Day Years [...] as of this encounter Patient Instructions Patient InstructionsSherman Moore MD - 09/28/2020 9:00 AM EST Dear Mr. Weinsteintt, Dr. Rodriguez asked for me to see you to discuss how radiation therapy can be used to treat your prostate cancer and this note is to recap our discussion regarding use of radiation treatments. As yourradiation oncologist, I work closely with your other healthcare providers and most importantly, withyou to make sure that the treatments we discuss and offer keep your personal preferences and goals in mind. We discussed the following next steps as part of your cancer evaluation and/or treatment: 1. The aggressiveness of your prostate cancer: You technically have unfavorable intermediate risk prostate cancer, which is a risk given to your cancer of coming back after treatment. This is based on three things 1. Your PSA (the blood test) was 11. PSA values below 10 are considered low risk and 10-20 are considered medium risk and above 20 are considered high risk. 2. Your highest Laurie score was 7 (this is how aggressive your prostate cancer looks under the microscope). [place] scores for cancer range from 6-10, and 6 is considered lowest risk, while scores of8-10 are considered higher risk. 3. How aggressive your prostate cancer felt when Dr. Thomas did the prostate exam (through the rectum) and how aggressive it appeared on the MRI. We do not yet have the MRI report. I will let you know what this shows as soon as we do. The decision to treat prostate cancer is based on both the risk that the cancer can kill you and your general overall health. I agree with Dr. Rodriguez's recommendation that this should be treated since we would otherwise expect you to live a normal length of life. 2. Radiation Treatment Options: Radiation for your prostate cancer can be done in either 9 weeks with external beam radiation alone, or in 5 weeks combined with a radioactive seed implant. Other options include shorter course radiation (5.5 weeks) or very short course radiation (5 days). While safe, these last two options may not be as effective for patients such as you. 3. Fiducial marker and SpaceOAR gel implants: If you decide to choose external beam radiation by itself, the first step will be for you to return to our clinic so that we can place small gold markers (called fiducials) into the prostate, which help us visualize the prostate on a daily basis prior to treating you with radiation. These small gold seeds are about the size of a grain of rice, and we willplace one into each side of the prostate. At the same time I will also implant a gel called SpaceOAR, which involves an injection of the gel into the space between the prostate and rectum, to decrease the amount of radiation that goes to the rectum. Some early data suggests it may be helpful in reducing radiation injury to the rectum. These procedures will be performed here in our clinic, and our nursing team will provide you instructions with how to prepare yourself. It takes approximately 2 hours from when you arrive to when you leave the building. 4. Radiation Therapy and Planning: Radiation therapy involves using high energy radiation which kills cancer but also normal healthy tissues. In order to make sure the radiation goes to the cancerous tissues and to also avoid radiating the normal tissues, we design radiation beams beams into special shapes which come from various different directions. Because no two people and no two cancers are completely identical, the radiation plan we create for you will be unique to you and your body. In order to figure out how many beams to use, how much radiation to give, which angles they should come from, and how they should be shaped, we have asked you to undergo 2 mapping scans: one is done here in our department known as a CT simulation, or CT sim, for short. This is essentially a CAT-scan similar to scans which you may have received before, but slightly different in a few ways: First, it allows usto place you in the exact same position which you should expect to be placed during each of your radiation treatment sessions. Second, it lets us better understand where the radiation targets and the normal tissues that we want to avoid exist, in relation to each other and the radiation beams. The second scan is a prostate MRI which will show us the position of the markers and improve our ability to see your prostate. Following these scans, we then perform additional calculations and measurements to create the absolute best plan possible for you. Depending on the complexity of the plan, these processes can take fromjust few hours to several days, and for that we ask for your patience. If you have any questions about the planning process or your custom radiation plan, I would be more than happy to review the plan with you during your first week of treatment. I anticipate you would receive either 28 or 44 treatments total, daily Thursday-Thursday. (28 treatments if you choose to have the short course; 44 if standard long course.) Your start date and time would be provided once the simulation scan is completed. During your radiation treatments, you can expect to see me once per week so that I can examine you to makesure you are tolerating radiation treatments and so that we can monitor your response to treatment. 5. SIDE EFFECTS - Short Term: We discussed some common temporary side effects that you may experience during radiation. Common side effects may include irritative symptoms of the bladder or prostate, which can result in more frequent urination or defecation. Other common side effects mahy include weake anthony urinary stream or burning with urination. If you experience any of these, please let us know so that we can help to treat them. These typically resolve within 4-6 weeks of completion radiation. 6. SIDE EFFECTS - Intermediate: These can include be permanent damage of the radiated tissues, including the rectum/bowel, bladder, prostate and surrounding tissues. Potential serious injury is rare, but can include poor wound healing, bleeding, or destruction of healthy tissue that may require surgery to repair and may result in a colostomy (bag for defecation) or urostomy (bag for urination). There may be a slow, senior care decrease in your sexual function as well, which is partly due to the aging process but also partly due to radiation side effects. This is typically responsive to medications like Viagra. Finally, there is a risk that radiation to your prostate increases the chance of getting another cancer caused by radiation, possibly of the prostate, bladder, rectum or surrounding tissues. This risk is overall quite low (approximately 1% above your normal risk for each 10 years you are alive), but is something to be aware of. 7. Hormone therapy: For unfavorable intermediate risk prostate cancers such as yours, I recommend a course of anti-testosterone therapy for 4-6 months (typically starting 2-3 months before radiation, but given the pandemic this may be extended longer). This can be given as a shot of up to 6 months at a time. The reason we recommend this is that the male hormone testosterone is used by prostate canceras a fuel. By decreasing the body's production of testosterone, we can 'starve' the prostate cancer.The main side effects of hormone therapy include hot flashes, night sweats, weight gain, depressed mood, loss of sexual interest and impotence. There is also a very low risk of heart attack among men who have recently had a heart attack. These side effects usually reverse within 3-6 months of stoppingthe hormone therapy when testosterone recovers, although it can take up to a full year. For 6 monthswe would also give you a pill to take once a day called Casodex (bicaluatamide) that blocks the effect of other testosterone in the body. You should start taking this on the same day as your first injection of anti-testosterone shot (today, if you like.) Please do not hesitate to call me at [phone] with any other questions or concerns you have. If I am not here, one of our radiation oncology nurses can assist you or help you get in touch with me. A Radiation Oncology doctor is also transportation engineering technician after our normal hours and on weekends for urgent questions or concerns related to radiation treatments that can not wait until normal business hours. To reach the on-call doctor after-hours, just call and have the dam operator page the Radiation Oncologist transportation engineering technician. And, as always, if you experience any life-threatening emergencies which any include the following, you need to seek emergency care immediately by calling 911: 1. Sudden and unexpected breathing difficulty without any exertion 2. Sudden onset of chest pain 3. Sudden onset of severe pain or uncontrolled pain 4. Sudden onset of severe weakness and/or unable to walk 5. Sudden new onset of a seizure 6. Fall resulting in injury 7. Uncontrollable bleeding Sherman Stein MD, MS Glass Technician of Radiation Oncology [facility] documented in this encounter Progress Notes Sherman Moore MD - 09/28/2020 9:00 AM EST Images from the original note were not included. Radiation Oncology Prostate Cancer Telephone Consult Note Sherman Moore MD, MS [facility] [phone] TELE-CONSULTATION DESCRIPTION Based on the recommendations from the [facility] in the setting of the COVID19 pandemic, we are working to minimize patient exposure in our medical center. All patients not requiring urgent procedures or physical examination are eligible for either a postponement in visit, or as medically indicated, visits may be offered by telemedicine (either video or phone consultation). This consultation has been reviewed by appropriate clinical staff and has been deemed appropriate for a TeleConsultation at this time. Type of Visit: Phone (i.e. audio only) Location of Patient: Home Additional members present for call: no Location of Provider (myself): Office PATIENT IDENTIFICATION: PATIENT NAME: Dominick Castro DATE OF : 1955 REFERRING PROVIDER: José Luis Rodriguez MD [facility] [place] [address] REASON FOR CONSULTATION : Cancer Staging Malignant neoplasm of prostate Staging form: Prostate, AJCC 8th Edition - Clinical: Stage IIC (cT2b, cN0, cM0, PSA: 11, Grade Group: 3) - Signed by Sherman Moore MD on 09/25/2020 HISTORY OF PRESENT ILLNESS: Dominick Castro is a 64 y.o. male recently diagnosed with an unfavorable intermediate-risk prostate cancer. Presenting Symptoms / Duration: ePSA Prior consultations / recommendations: Dr Lujan ([facility]) - 50g prostate w firm right base Dr Thomas - 30g prostate; 2cm mid/apical right lateral nodule I also suggested to schedule an mpMRI (if eligible). He will contact me back in case he wants to proceed with surgery, but is currently leaning toward radiation. PSA History: 03/2020 - (first time checked) Pathology Results / Location: TRUS bx 08/07/20 Gl 4+3 x 1 on RT Gl 3+4 x 5 bilat Gl 3+3 x 1 on LT Pertinent Imaging Studies: 08/07/20 TRUS - prostate 30cc 09/27/20 - mpMRI - read pending at time of consult Prior to starting today's phone consultation, I informed Dominick that this does constitute a billable visit, and that [facility] would be submitting a claim to his insurer. He provided verbal consent to proceedwith the consultation documented above. REVIEW OF SYSTEMS: REVIEW OF SYSTEMS 09/28/2020 Constitutional Pain Ear / nose / throat / mouth Other symptoms with ears, nose, throat, mouth Eyes None of the above Respiratory None of the above Cardiovascular None of the above Gastrointestinal None of the above Skin, hair None of the above Musculoskeletal Joint pain Neurological Headaches Hematologic / Lymphatic None of the above Genitourinary Decreased urinary flow Other Symptoms Pain: shoulder injury: torn rotator cuff. recent right hip surgery. Deviated nasal septum. environmental allergies. Migraines a couple times a month relieved by percocet. Most recent colonoscopy was about 3 years ago. Due in 2 years. 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 He is still recovering from his recent hip replacement and revision due to hardware failure. He is now off his crutches, though still has some pain. He also has a torn rotator cuff. Otherwise, a comprehensive 14 point review of systems was conducted with this patient and is otherwise negative except as documented above. Baseline MATTIE and IPSS are as below: Prostate Scores and Responses 09/28/2020 Confidence, level - past 6 months Very High Penetration - past 6 months Almost always or always Penetration, maintain - past 6 months Almost always or always Erection, maintain - past 6 months Not difficult Sexual satisfaction - past 6 months Almost always or always Sexual Health in Men 25 Incomplete emptying Not at all Frequency Less than half the time Intermittency Not at all Urgency Not at all Weak Stream Not at all Straining Not at all Nocturia 1 time Quality of life Delighted Total IPSS Score 3 ( MILD LUTS) EPIC-PC Responses 09/28/2020 Urinary Incontinence Symptom Score 0 Urinary Irritation/Obstructive Symptom Score 1 Bowel Symptom Score 0 Vitality/Hormonal Symptom Score 0 Overall Prostate Cancer QOL Score 1 Urinary function problem Very small problem Urinary control Total control # of pads used per day None Urinary dripping/leakage problem No problem Pain or burning with urination No problem Weak urine stream/incomplete bladder emptying No problem Need to urinate frequently Very small problem Rectal pain or urgency of bowel movements No problem Increased frequency of your bowel movements No problem Overall problems with your bowel movements No problem Bloody stools No problem Ability to reach orgasm Very good Quality of your erections Firm enough for intercourse Problem with sexual function or lack of it No problem Hot flashes or breast tenderness/enlargement No problem Feeling depressed No problem Lack of energy No problem PAST MEDICAL HISTORY (per the medical record - not updated today) Past Medical History: Diagnosis Date ??? Chronic pain right shoulder and bilat hips ??? History of total right hip arthroplasty 06/26/2020 ??? Liver disease hepatitis at age 14 ??? Malignant neoplasm of prostate 09/25/2020 ??? Post-operative nausea and vomiting ??? Prostate cancer Past Surgical History: Procedure Laterality Date ??? COLONOSCOPY 2004 and 2018 ??? JOINT REPLACEMENT hipss ??? PRO REVISE TOTAL HIP REPLACEMENT Left 01/12/2020 @TOTAL HIP REVISION ARTHROPLASTY, COMPLETE (WRVU 30.28) performed by Jack Lewis MD at [facility] MAIN OR ??? PRO REVISE TOTAL HIP REPLACEMENT Right 07/26/2020 @TOTAL HIP REVISION ARTHROPLASTY, COMPLETE (WRVU 30.28) performed by Jack Lewis MD at [facility] MAIN OR ??? PROSTATE BIOPSY 07/17/21 at [facility] CONTRAINDICATIONS TO RADIATION THERAPY: None ?? Prior radiation therapy: No ?? Active Lupus: No ?? Systemic Scleroderma: No MEDICATIONS / ALLERGIES (per the medical record - not reviewed/updated with the patient): Medications 09/28/20 0834 Medication Sig Taking? oxyCODONE-acetaminophen (Percocet) 5-325 mg Tablet 1 tablet every 4 hours as needed (hip and shoulder pain). Yes No Known Allergies TODAY'S PERFORMANCE STATUS per today's conversation: KPS Score ECOG Grade Definition 90-100 0 [...] selfcare; totally confined to bed or chair ASSESSMENT / PLAN: Dominick Castro is a 64 y.o. man diagnosed with an unfavorable intermediate-risk prostate cancer (cT2b, Gl 4+3, PSA 11). Staging mpMRI report is still pending, and his most recent PSA is over 6 months old. Today we reviewed the risks, benefits, rationale, implications and alternatives of the various management options. Fortunately he was well informed regarding these options, especially the surgical approach by Dr. Rodriguez, so we spent the remainder of the discussion focusing on radiation therapy. Briefly, though, we reviewed his three major options, which include radical prostatectomy, radiation therapy, and active surveillance with delayed curative intent. Active surveillance was not reviewed in detail given his overall young age, multiple cores and high grade disease noted. With regard to his radiation options, we reviewed the following: Standard pelvic/prostate RT Combination pelvic EBRT / prostate brachtherapy Hypofractionated pelvic/prostate RT SBRT to prostate alone I discussed that the latter 2 have less efficacy data than the former 2, though do have adequate safety data. In the short term, I reviewed the common irritative bowel and bladder side effects associated with all forms of radiotherapy. In the senior care, I explained there is an approximately 2% chance of serious bladder or rectal toxicity as well as a very low risk of inducing a secondary malignancy. I also reviewed that with radiation there are few reliable salvage curative options. Logistics of external beam treatment were also reviewed, including the role of fiducial marker placement with or without spaceOAR hydrogel placement, simulation, and treatment. Logistics of brachytherapy were also reviewed, including the fact that I would refer his case to my collegue, Dr Flynn at [facility] who routinely performs these implants. I also reviewed the role of short-term ADT and side effects associated with this treatment. He understands there is a survival benefit when ADT is added to radiotherapy, and that side effects can include diminished libido, hot flashes, weight gain, mood swings, depression and/or osteoporosis. Clinical trials were also reviewed briefly. He is not a candidate for any currently open trials at [facility]. On balance, Dominick wishes to review these options and have a follow-up conversation at my next availability. I will mail him an AVS and schedule accordingly. All of his questions were answered to his satisfaction, and we have provided him with our contact information should any further questions or lesly rns arise. SUMMARY OF PLAN / RECOMMENDATION: 1. Intent of therapy: Curative 2. Clinical Trial Availability: No 3. RV / TOV in 1 week to review treatment options, answer additional questions TIME ATTESTATION: I certify spending at least 60 minutes in providing care to this patient today, 09/28/20 as reflected by the following activities: - review of his medical record in the chart, including interpretation of imaging, laboratory and pathologic studies referenced above - discussion of the above with the patient as part of shared medical decision making - documenting the outcome of today's visit as above SHERMAN MOORE MD, MS Yissel Ashby RN - 09/28/2020 9:00 AM EST Radiation Oncology Nurse Telephone Note [place], [place] RADIATION ONCOLOGY NURSING INITIAL NURSING ASSESSMENT IDENTIFICATION: Dominick Castro is a 64 y.o. year-old male with prostate ca PRESENTING SYMPTOMS/CHIEF COMPLAINT: REVIEW OF SYSTEMS: Review of Systems - Oncology REVIEW OF SYSTEMS 09/28/2020 Constitutional Pain Ear / nose / throat / mouth Other symptoms with ears, nose, throat, mouth Eyes None of the above Respiratory None of the above Cardiovascular None of the above Gastrointestinal None of the above Skin, hair None of the above Musculoskeletal Joint pain Neurological Headaches Hematologic / Lymphatic None of the above Genitourinary Decreased urinary flow Other Symptoms Pain: shoulder injury: torn rotator cuff. recent right hip surgery. Deviated nasal septum. environmental allergies. Migraines a couple times a month relieved by percocet. IN THE PAST 12 MONTHS HAVE YOU: Fallen more than one time? No Injured yourself as result of the fall? No Experienced difficulty with walking/problems with balance? No Do you use any assistive devices? No Any history of collagen vascular diseases:No Any Implanted Devices/Hardware: Yes hardware in both hips If yes please put alert in ARIA patient summary Prior Radiotherapy: No Prior Chemotherapy: No Prior Hormone Therapy: No Other: Patient denies history of sclera derma and Lupus LEARNING ASSESSMENT REVIEWED: Yes ADVANCED DIRECTIVE: Not discussed today. PAIN ASSESSMENT: [4] out of 10 *eD-H Adult PCS Flow Sheet if 4 or above Right leg S/P surgery SOCIAL ASSESSMENT: See [facility] social assessment information entered. Support Systems: lives with , Ele ,who is working today. Case Manager of Dental office Barriers to treatment: denies Referrals/Interventions: grounds worker visit on day per routine. RADIATION SPECIFIC TEACHING:Will provide the following information on day [facility] Radiation Therapy and You Site specific teaching :pelvis Other: PLAN: Per Dr Moore documented in this encounter Plan of Treatment Upcoming Encounters Date Type Specialty Care Team Description 07/08/2022 Office Visit Radiation Oncology Shelley Kimble, LINEN ROOM ATTENDANT [facility] RADIATION ONCOLO [place], [place] [address] (Wo rk) Scheduled Referrals Name Type Priority Associated Diagnoses Order S chedule Referral to Outpatient Referral Routine Malignant neoplasm Or dered: Radiation Oncology of prostate 0 documented as of this encounter Visit Diagnoses Diagnosis Malignant neoplasm of prostate documented in this encounter Care Teams Investigative Analyst Relationship Specialty Start Date End Date Grover Herman MD PCP - General Family Medicine 07/19/20 [address] [place] [address] documented as of this encounter
--- OUTSIDE RECORDS SUMMARY | 2022-07-01 13:46 | XMS_ITS | Encounter Summary ---
:1955 Author Organization [facility] [place] [address] Care Team Providers Name Role Phone Grover Herman MD Primary Care Provider Encounter Details Date Type Department Care Team Description 08/06/2020 Orders Only [facility]opa[facility] [place] [facility] [place] Lewis R, History of total hip arthrop lasty, right (Primary Dx); [facility] History of total hip arthroplasty, bil[facility] [place] [address] ORTHOPAEDIC SURG [place], [place] [address] (Wo rk) Social History Tobacco [...] Office Visit Radiation Oncology Shelley Kimble APRN [facility] RADIATION ONCOLO [place], [place] [address] (Wo rk) documented as of [...] ? Electronically signed by: JUVENTINO VINES MD, [facility] ([phone]), at 08/22/2020 10:24 AM Narrative 08/22/2020 10:24 [...] below. Electronically signed by: JUVENTINO VINES MD, [facility] ([phone]), at 08/22/2020 10:24 AM Jack Lewis MD IMG DX ORDERABLES documented in this encounter Visit Diagnoses Diagnosis History of total hip arthroplasty, right - Primary History of total hip arthroplasty, bilat eral History of total hip arthroplasty, bilat eral History of total hip arthroplasty, right documented in this encounter Care Teams Intake Assessor Relationship Specialty Start Date End Date Grover Herman MD PCP - General Family Medicine 07/19/20 [address] [place] [address] documented as of this encounter
--- OUTSIDE RECORDS SUMMARY | 2022-07-01 13:46 | XMS_ITS | Encounter Summary ---
:1955 Author Organization [facility] [place] [address] Care Team Providers Name Role Phone Grover Herman MD Primary Care Provider Reason for Visit Auth/Cert Specialty Diagnoses / Procedures Referred By Contact Refer red To Contact Diagnoses BILIARY COLIC Procedures PRO LAP, CHOLECYSTECTOMY/GRAPH LAPAROSCOPIC CHOLECYSTECTOMY WITH CHOLANGIOGRAM (WRVU 11.47) Referral ID Status Reason Start Date Expiration Date Visits Requ ested Visits Authorized [id number] 1 1 Encounter Details Date Type Department Care Team Description 01/07/2021 Hospital Encounter Same Day Program at [facility] Porter, [facility] [address] Gutierrez [place] [address] [place] [address] [phone] (Wo rk) Social History Tobacco Use Types [...] Sign Reading Time Taken Comments Blood Pressure 109/74 01/07/2021 2:00 PM EDT Pulse 57 01/07/2021 12:45 PM EDT Temperature 36.9 ??C (98.4 ??F) 01/07/2021 12:34 PM EDT Respiratory Rate 16 01/07/2021 2:15 PM EDT Oxygen Saturation 94% 01/07/2021 2:15 PM EDT Inhaled Oxygen Concentration - - [...] epps MD - 01/07/2021 12:43 PM EDT [facility] Department of Minimally InvasiveSurgery Discharge Instructions [...] day, it is best to call the 4 General Surgery Clinic to speak with the Surgery nurses. The number is [phone]. - During the night or weekends call the [facility] wet plant operator at [phone] and ask to speak to the surgery resident classification counselor for general surgery. Please note: Your surgeon may not be Supervisor Vacuum Metalizing, especially during the night or on weekends, so be ready to describe yourself and your surgery when you call. Follow up appointments: Future Appointments Date Time Provider Department Center 02/06/2021 3:20 PM Ramy Porter MD [facility] [x] Follow-up appointment with General Surgery has already been scheduled. Please call the clinic [phone] to confirm or reschedule. [] A request for a follow-up appointment has been made and you should receive information via phone/mail in the next week. If you do not hear anything, please call the clinic at [phone] to confirmor reschedule. If you need a prior authorization, please call the General Surgery Clinic nurses [phone] for prior authorizations assistance documented in this [...] male with symptomatic cholelithiasis who presents to [facility] for lap cholecystectomy with IOC. S: Dominick [...] Porter MD - 01/07/2021 11:03 AM EDT [facility] Operative Note Patient Name: Dominick Castro : [id number] MR#: [id number] Case Date: 01/07/2021 Surgeon: Surgeon(s) and Role: [...] Team Description 07/08/2022 Office Visit Radiation Oncology Lamin Shelley Terry, KID CLUB ATTENDANT [facility] RADIATION [place], [place] [address] (Wo rk) documented as of [...] Component Value Ref Test Analysis Performed At [facility] Range Method Time Signature Surgical [id number] ? [facility]; [facility]; [facility] Report The signing pathologist has (i) examined the relevant preparation(s) for the MEMORIAL specimen(s) and (ii) rendered or confirmed the diagnosis(es) . HOSPITAL LABORATORY . ?Surgic al Pathology DIAGNOSIS Gallbladder and contents: - ??Cholelithiasis. Electronically signed by: ?Bear Phillips MD Verified: ??01/11/2021 14:30 ??Pathologist Performed at: ??-[facility] Dept. of Pathology, [place], [place] SPECIMEN(S) SUBMITTED A - Gallbladder and [...] The hepatic margin is inked black Sections/Processing: Chief Merchandising Officer sections in 1 cassettes as follows: ?A1: ??cystic duct margin and sales representative printing mucosa. ??pps Specimen (Source) Anatomical Collection Method Collection Time Re ceived Time Location / / Volume Laterality 01/07/2021 12:07 PM EDT Ramy Porter MD PATHOLOGY/CYTOLOGY ORDERABLE S Performing Organization Address City/State/ZIP Code Phon e Number [address] Specimen to Pathology (01/07/2021 12:07 PM EDT) Specimen Anatomical Collection Method Collection Time Receive d Time (Source) Location / / Volume Laterality AP Specimen 01/07/2021 12:07 01/07/2021 PM EDT 12:07 PM EDT Narrative [facility] - 01/07/2021 12:07 PM EDT Specimen requisition ordered. ??Separate Pathology report to follow Ramy Porter MD PATHOLOGY/CYTOLOGY ORDERABLE S Performing Organization Address City/[facility]/ZIP Code Phon e Number [address] XR Fluoro No Rad <1Hr - OR Use (01/07/2021 11:51 AM EDT) Specimen (Source) Anatomical Location Collection Method / Collectio n Time Received Time / Laterality Volume Narrative [facility] - 01/07/2021 11:52 AM EDT This exam is auto-finalizing. No interpr etation was done. Ramy Porter MD IMG FLUORO ORDERABLES Performing Organization Address City/State/ZIP Code Phon e Number [facility] [place], [place] documented in this encounter Visit Diagnoses [...] Day of Surgery (Day of Procedure), Routine fentaNYL (pf) (50 mcg/mL) multi-dose Given 01/07/2021 [...] from all sources in 24 hours, Routine lactated ringers infusion New Bag 01/07/2021 [...] mg (COMPLETED) 0911 (Given - Provider: Cayla Doss, CHAZ) 1,000 mg, Oral, ONCE, 1 dose, Thu 1 at 0930, Administer with SIP of H2O only., Day of Surgery (Day of Procedure), Routine ceFAZolin (Ancef) 2 g in dextrose 5% 100 mL infusion (COMPLETED) 1103 (Given - Provider: Bryn Forbes MD) 2 g, Intravenous, EMD SPECIAL EDUCATION TEACHER TO O.R., 1 dos e, Thu01/07/21 at 1015, Administer over 30 Minutes, Indication for (Active or Suspected): Prophylaxis Continuous Medication Order 01/05/2021 01/06/2021 01/07/2021 lactated ringers infusion (CANCELED) 0910 (New Bag - Provider: Cayla Doss RN) 1,000 mL, at 100 mL/hr, Intravenous, CON [...] RN) 12.5-25 mcg, Intravenous, EVERY 5 MIN [place] N, Starting Thu01/07/21 at 1138, Until Thu01/07/21 at 1631, Pain, Give 12.5 mcg every 5 minutes PRN for mild to moderate pain (1-5) Give 25 mcg every 5 minutes [place] N for moderate to severe pain (6-10). [...] Routine documented in this encounter Care Teams Weather Strip Mechanic Relationship Specialty Start Date End Date Grover Herman MD PCP - General Family Medicine 07/19/20 [address] [place] [address] documented as of this encounter
--- OUTSIDE RECORDS SUMMARY | 2022-07-01 13:46 | XMS_ITS | Encounter Summary ---
:1955 [place] [address] Care Team Providers Name Role Phone Grover Herman MD Primary Care Provider Reason for Visit Auth/Cert Specialty Diagnoses / Procedures Referred By Contact Refer red To Contact Diagnoses BILIARY COLIC Procedures PRO LAP, CHOLECYSTECTOMY/GRAPH LAPAROSCOPIC CHOLECYSTECTOMY WITH CHOLANGIOGRAM (WRVU 11.47) Referral ID Status Reason Start Date Expiration Date Visits Requ ested Visits Authorized [id number] 1 1 Encounter Details Date Type Department Care Team Description 01/07/2021 Anesthesia Event Main Operating Room Patty Bailey MD [facility] [place] [address] [place] [address] [phone] Anesthesia Record Procedure Summary Procedure Name Responsible Anesthesia Start Anesthesia Stop Anesthesiologist Time Time LAPAROSCOPIC Mikaela Salinas MD 01/07/21 1033 01/07/21 1238 CHOLECYSTECTOMY WITH CHOLANGIOGRAM (WRVU 11.47) (N/A Abdomen) Events Date Time Event Comment 01/07/2021 1033 AN Verify 1033 Start 1033 An Start Data 1042 An Induction 1045 An Intubation 1057 Anesthesia Ready 1105 Procedure Start 1106 Quick Note Skin temp readin g 35 despite oral temp 34.3; shannon hugger on h igh 1107 An Data Art 1225 Extubation/LMA Out 1230 an stop data 1238 Recovery or ICU Handoff Patient care was transferred to the destination unit staff after review of the patient's medica l history, current anesthetic/surgi amee status and plan, according to the Provider Handoff Checklist. 1238 Stop 1753 Name Total fentaNYL 100 mcg IV Lidocaine 100 mg Propofol 200 mg Rocuronium 110 mg ePHEDrine 5 mg Ondansetron 4 mg Dexamethasone 4 mg Neostigmine 4 mg Glycopyrrolate 0.8 mg ceFAZolin (Ancef) 2 g in dextrose 5% 100 mL infusion 2 g HYDROmorphone 1.8 mg Labetalol 20 mg Lactated Ringers 800 mL Agents Name O2 Air N2O Sevoflurane (et) Blood No blood administrations on file. Lines, Drains, and Airways Type Details Placement Removal Incision 01/12/20; 0819; hip; 01/12/20 0819 by Shoaf, 1715 by vertical; 05/12/22 (CHAZ Hinson Dierdre L cleanup utility RA#[id number]); 171 (LDA cleanup utility RA#[id number]) Incision 07/26/20; 1512; thigh; 07/26/20 1512 by 05/12/22 1715 by 05/12/22 (LDA cleanup Kj Tellez RN Mu ller, Dierdre L utility RA#[id number]); 1715 (LDA cleanup utility RA#[id number]) PIV 01/07/21; 0909; cephalic 01/07/21 0909 by Lincoln gallo, 01/07/21 1430 by vein (lateral side of arm), CHAZ Kelly Erica H, RN right; [id number] catheter system; Anatomical Landmarks; 20 gauge; distraction; 01/07/21; 1430 Incision 01/07/21; 1103; abdomen; 01/07/21 1103 by 1715 by laparoscopic punctures Cecilia Wilson Muller, Dierdre L (specify) (Four lap trocar RN sites); 05/12/22 (LDA cleanup utility RA#[id number]); 171 (LDA cleanup utility RA#[id number]) ETT Mask Ventilation: Easy (1); 01/07/21 1134 by Pal julio césar, 01/07/21 1237 by ETT Type: Cuffed, Oral; ETT MD Hosea Greenberg Justin D, MD Size: 7.5 mm; Attempts: 1; Laryngoscopy Grade: 1; ETT Placement Verified By: Auscultation, Capnometry, Visual; Secured at Teeth: 23 cm; Inserted by: alexandria documented in this encounter Social History Tobacco [...] encounter OR Notes Anesthesia Postprocedure Evaluation - Bryn Forbes MD - 01/07/2021 12:39 PM EDT Department of Anesthesiology Post-procedure Note Patient: Dominick Castro Procedure Summary Date: 01/07/21 Room / Location: [address] MAIN OR Anesthesia Start: 1033 Anesthesia Stop: 1238 Procedure: LAPAROSCOPIC CHOLECYSTECTOMY WITH CHOLANGIOGRAM (WRVU 11.47) (N/A Abdomen) Diagnosis: (BILIARY COLIC) Surgeons: Ramy Porter MD Responsible Provider: Mikaela Salinas MD Anesthesia Type: general ASA Status: 2 All Anesthesia Providers: Anesthesiologist: Mikaela Salinas MD Retail Gift Card Merchandising: Bryn Forbes MD Vitals Value Taken Time BP 139/76 01/07/21 1234 Temp 36.9 ??C (98.4 ??F) 01/07/21 1234 Pulse 64 01/07/21 1238 Resp 22 01/07/21 1238 SpO2 100 % 01/07/21 1235 Pain Level Vitals shown include unvalidated device data. Patient Location: PACU/[facility] Level of Consciousness: Awake and Alert Pain Management: Satisfactory Analgesia PONV: None Cardiovascular Status: Hemodynamically Stable Respiratory Status: Stable Respiratory Status Postoperative Fluid Status: Intravascular EUvolemia Possible Anesthetic Complications: NONE apparent at time of evaluation Final Primary Anesthesia Type: General (The anesthetic type performed was the same as planned.) Comments: Anesthesia Preprocedure Evaluation - Bryn Forbes MD - 01/06/2021 5:03 PM EDT Pre-Anesthesia Evaluation for: Dominick Castro a 65 y.o. male. Procedure(s): LAPAROSCOPIC CHOLECYSTECTOMY WITH CHOLANGIOGRAM (WRVU 11.47) Patient Active Problem List Diagnosis ??? Malignant [...] Procedure Laterality Date ??? COLONOSCOPY 2004 and 2017 ??? JOINT REPLACEMENT hipss ??? PRO REVISE TOTAL HIP REPLACEMENT Left 01/12/2020 @TOTAL HIP REVISION ARTHROPLASTY, COMPLETE (WRVU 30.28) performed by Jack Lewis MD at [facility] MAIN OR ??? PRO REVISE TOTAL HIP REPLACEMENT Right 07/26/2020 @TOTAL HIP REVISION ARTHROPLASTY, COMPLETE (WRVU 30.28) performed by Jack Lewis MD at [facility] MAIN OR ??? PROSTATE BIOPSY 07/17/21 at [facility] Social History Tobacco Use ??? Smoking status: Never Smoker ??? Smokeless tobacco: Never Used Substance Use Topics ??? Alcohol use: Not Currently Alcohol/week: 1.0 standard drinks Types: 1 Standard drinks or equivalent per week Comment: Occasionally, 0-1 drinks a week Social History Substance and Sexual Activity Drug Use No No Known Allergies Medications: MAR and/or home medications have been reviewed. Physical Exam: Preprocedure Vitals Current as of 01/06/21 1703 No BP, pulse, respiration, SpO2, or temperature recorded. Height: Weight: BMI: IBW: Airway Assessment: Mallampati: I TM distance: >3 FB Neck ROM: full Cardiovascular Assessment: system normal Pulmonary Assessment: pulmonary exam normal Dental Assessment: - normal exam Misc Assessment: Last Filed Perioperative Cognitive Screening None Anesthesia Plan: ASA 2 general, with a(n) intravenous induction Patient is a 65 year old male who presents for laparoscopic cholecystectomy in the setting of biliary colic. PMH: Migraines, obesity, chronic opioid use, PONV. Bilateral hip arthroplasties. Plan: EDWARD Forbes MD Anesthesiology PGY2 Region - Other Informed Consent: [facility] Clinic Note documented in this encounter Plan of Treatment Upcoming Encounters Date Type Specialty Care Team Description 07/08/2022 Office Visit Radiation Oncology Shelley Kimble, HOLDER PILE DRIVING [facility] ER RADIATION [place], [place] [address] (Wo rk) documented as of this encounter Visit Diagnoses Not on filedocumented in this encounter Administered Medications Inactive Administered Medications - up to 3 most recent administrations Medication Order MAR Action Action Date Dose Rate Site ceFAZolin (Ancef) 2 g in dextrose Given 01/07/2021 11:03 AM EDT 2 g 5% 100 mL infusion 2 g, Intravenous, SUPPORT GROUP MANAGER TO O.R., 1 dose, On Thu01/07/21 at 1015, Administer over 30 Minutes, Indication for (Active or Suspected): Prophylaxis dexamethasone (Decadron) injection Given 01/07/2021 11:37 AM EDT 4 mg Intravenous, PRN, Starting on Thu01/07/21 at 1137, Until Thu01/07/21 at 1238, Anesthesia Intra-op, Routine ePHEDrine (pf) (5 mg/mL) multi-dose inje ction Given 01/07/2021 11:33 AM EDT 5 mg Intravenous, PRN, Starting on Thu01/07/21 at 1133, Until Thu01/07/21 at 1238, Anesthesia Intra-op, Routine fentaNYL (pf) (50 mcg/mL) multi-dose Given 01/07/2021 10:39 AM E DT 100 mcg injection Intravenous, PRN, Starting on Thu01/07/21 at 1039, Until Thu01/07/21 at 1238, Anesthesia Intra-op, Routine glycopyrrolate (Robinul) (0.2 mg/mL) Given 01/07/2021 12:13 PM E DT 0.8 mg multi-dose injection Intravenous, PRN, Starting on Thu01/07/21 at 1213, Until Thu01/07/21 at 1238, Anesthesia Intra-op, Routine HYDROmorphone (Dilaudid) (2 mg/mL) multi-dose Given 1:21 PM EDT 0.4 mg injection solution Intravenous, PRN, Starting on Thu01/07/21 at 1147, Until Thu01/07/21 at 1238, Anesthesia Intra-op, Routine Given 01/07/2021 12:25 PM EDT 0.2 mg Given 01/07/2021 12:21 PM EDT 0.2 mg labetaloL (Normodyne) (5 mg/mL) multi-dose Given 01/07/2021 12:2 7 PM EDT 10 mg injection Intravenous, PRN, Starting on Thu01/07/21 at 1221, Until Thu01/07/21 at 1238, Anesthesia Intra-op, Routine Given 01/07/2021 12:21 PM EDT 10 mg lactated ringers infusion New Bag 01/07/2021 10:30 AM EDT Intravenous, CONTINUOUS PRN, Starting on Thu01/07/21 at 1030, Until Thu01/07/21 at 1238, Anesthesia Intra-op lidocaine (pf) (Xylocaine) (20 mg/mL) 2% Given 01/07/2021 10:42 AM EDT 100 mg injection syringe Intravenous, PRN, Starting on Thu01/07/21 at 1042, Until Thu01/07/21 at 1238, Anesthesia Intra-op, Routine neostigmine (Bloxiver) (1 mg/mL) injecti on Given 01/07/2021 12:13 PM EDT 4 mg Intravenous, PRN, Starting on Thu01/07/21 at 1213, Until Thu01/07/21 at 1238, Anesthesia Intra-op, Routine ondansetron (pf) (Zofran) (2 mg/mL) inje ction Given 01/07/2021 12:13 PM EDT 4 mg Intravenous, PRN, Starting on Thu01/07/21 at 1213, Until Thu01/07/21 at 1238, Anesthesia Intra-op, Routine propofoL (Diprivan) 10 mg/mL bolus injection Given 10:42 AM EDT 200 mg (Anesthesia) Intravenous, PRN, Starting on Thu01/07/21 at 1042, Until Thu01/07/21 at 1238, Anesthesia Intra-op rocuronium (Zemuron) (10 mg/mL) multi-dose Given 01/07/2021 11:4 1 AM EDT 10 mg injection Intravenous, PRN, Starting on Thu01/07/21 at 1042, Until Thu01/07/21 at 1238, Anesthesia Intra-op, Routine Given 01/07/2021 10:42 AM EDT 100 mg documented in this encounter Care Teams Apparel Machinery Instructor Relationship Specialty Start Date End Date Grover Herman MD PCP - General Family Medicine 07/19/20 [address] [place] [address] documented as of this encounter
--- OUTSIDE RECORDS SUMMARY | 2022-07-01 13:46 | XMS_ITS | Encounter Summary ---
:1955 Author Organization [facility] [place] [address] Care Team Providers Name Role Phone Grover Herman MD Primary Care Provider Reason for Visit Reason Comments Injections Lupron High Dollar Medication (Routine) - Specialty Diagnoses / Procedures Referred By Contact Refer red To Contact Hematology and Oncology Diagnoses Malignant neoplasm of prostate Sherman Davis MD [facility] Infusion Procedures TC LEUPROLIDE ACETATE 7.5MG, FOR DEPOST SUSPENSION (LUPRON DEPOT) INFUSION ROOM [address] [place] [address] [place] [id number] Referral ID Status Reason Start Date Expiration Date Visits V isits Requested Authorized [id number] 10/05/2020 09/17/2021 99 99 Encounter Details Date Type Department Care Team Description 12/06/2020 [facility] [address] [place] [phone] Social History Tobacco Use Types [...] Sign Reading Time Taken Comments Blood Pressure 151/89 12/06/2020 1:37 PM EDT Pulse 72 12/06/2020 1:37 PM EDT Temperature 36.5 ??C (97.7 ??F) 12/06/2020 1:37 PM EDT Respiratory Rate 18 12/06/2020 1:37 PM EDT Oxygen Saturation 99% 12/06/2020 1:37 PM EDT Inhaled Oxygen Concentration - - Weight 100.9 kg (222 lb 6.4 oz) 12/06/2020 1:37 PM EDT Height 180 cm (5' 10.87) 12/06/2020 1:37 PM EDT Body Mass Index 31.14 12/06/2020 1:37 PM EDT documented in this encounter Progress Notes Jose Maria Lara RN - 12/06/2020 2:00 PM EDT Infusion Note Diagnosis:Prostate Cancer Treatment: Lupron Injection Lupron 7.5 mg injected IM in left buttocks per Pt request. Patient instructed on side effects of Lupron. Patient states understanding of teaching and patient aware to call clinic with any questions or concerns. Plan: Return to clinic as scheduled. documented in this encounter Plan of Treatment Upcoming Encounters Date Type Specialty Care Team Description 07/08/2022 Office Visit Radiation Oncology Shelley Kimble APRN [facility] RAD[facility]ATION [facility] [place] [address] (Wo rk) documented as of this encounter Visit Diagnoses Diagnosis Malignant neoplasm of prostate documented in this encounter Administered Medications Inactive Administered Medications - up to 3 most recent administrations Medication Order MAR Action Action Date Dose Rate Site leuprolide (Lupron Depot) Given 12/06/2020 1:52 PM EDT 7.5 mg Left Gluteal injection 7.5 mg 7.5 mg, Intramuscular, ONCE, 1 dose, On Charlette 12/06/20 at 1400, Routine, This agent is restricted to outpatient use. Is this drug being given as an outpatient? Yes documented in this encounter Care Teams Weblogic Administrator Relationship Specialty Start Date End Date Grover Herman MD PCP - General Family Medicine 07/19/20 [address] [place] [address] documented as of this encounter
--- OUTSIDE RECORDS SUMMARY | 2022-07-01 13:46 | XMS_ITS | Encounter Summary ---
:1955 Author Organization [facility] [place] [address] Care Team Providers Name Role Phone Grover Herman MD Primary Care Provider Encounter Details Date Type Department Care Team Description 11/09/2020 Telephone Radiation Oncology a erika [facility] Jun Sharif [address] [place] [phone] Social History Tobacco Use Types [...] 07/08/2022 Office Visit Radiation Oncology Shelley Kimble, PLASTICS PRODUCTION MACHINE OPERATOR [facility] RADIATION [place], [place] [address] (Wo rk) documented as of this encounter Visit Diagnoses Not on filedocumented in this encounter Care Teams Phlebotomy Technologist Relationship Specialty Start Date End Date rGover Herman MD PCP - General Family Medicine 07/19/20 [address] [place] [address] documented as of this encounter
--- OUTSIDE RECORDS SUMMARY | 2022-07-01 13:46 | XMS_ITS | Encounter Summary ---
:1955 Author Organization [facility] [place] [address] Care Team Providers Name Role Phone Grover Herman MD Primary Care Provider Reason for Visit Reason Comments Follow-up s/p lap tushar Encounter Details Date Type Department Care Team Description 02/06/2021 Office Visit General Surgery at Ramy Porter Po stoperative visit [facility] [place] [address] GENERAL SURGERY [phone] [place], [place] [address] (Wo rk) Social History Tobacco [...] documented as of this encounter Progress Notes Ramy Porter MD - 02/06/2021 3:20 PM EDT Patient is a 65-year-old gentleman who returns in follow-up status post a laparoscopic cholecystectomy. He did well postop was discharged the same day. He had intraoperative cholangiogram which was completely normal. Pathology was gallbladder was consistent with cholelithiasis. On exam all trocar sites are healing well without any evidence of erythema or herniation is abdomen is soft flat and nontender. He states that he still has some food intolerances with some generalized abdominal pain but othertimes he is completely normal and fine. He was able to eat steak last night without any difficulty. I told him that there can be an adjustment. In terms of what his bowel his body can tolerate for the f irst 3 months or so and there is also possibility that he could have other GI problems that he does have a history of celiac disease and I am confident that he has no retained stones given the completely normal cholangiogram and I be happy to see him back on an as-needed basis documented in this encounter Plan of Treatment Upcoming Encounters Date Type Specialty Care Team Description 07/08/2022 Office Visit Radiation Oncology Shelley Kimble, CLINICAL PHARMACY TECHNICIAN [facility] RADIATION ONCWARNER [place], [place] [address] (Wo rk) documented as of this encounter Visit Diagnoses Diagnosis Postoperative visit documented in this encounter Care Teams Heliotherapist Relationship Specialty Start Date End Date Grover Herman MD PCP - General Family Medicine 07/19/20 [address] [place] [address] documented as of this encounter
--- OUTSIDE RECORDS SUMMARY | 2022-07-01 13:46 | XMS_ITS | Encounter Summary ---
:1955 Author Organization [facility] [place] [address] Care Team Providers Name Role Phone Grover Herman MD Primary Care Provider Encounter Details Date Type Department Care Team Description 08/14/2020 Notes [place] [facility] [place]egan Guillen [place] [facility] [place] [address] ORTHOPAEDIC SURGERY [phone] [place], [place] [address] (Wo rk) Social History Tobacco [...] documented as of this encounter Progress Notes Tegan Guillen PA - 08/14/2020 11:00 AM EST 07/26/2020 ([place]) Right REGGIE aseptic loosening, 1. ??Aseptic Loosening Right Femoral stem 2. 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 ??Extensive proximal femoral osteolysis I called to talk to Dominick about the pain he felt in his Right hip. He reports that he sas laying on his back on Thursday night, stretched his leg felt a very painful pop in his operative leg. He was seen at an outside facility and obtained XR which he would like to review. He has remained TDWB. His pain level was initially high, however this has gotten dramatically better. We reviewed the XR which does show a shucking of the Extended Troch Osteotomy proximally a bit, however this is still captured by the wires. The hardware itself is well placed. Dominick needs to remain TDWB on this leg and continue to adhere to the enhanced precautions. He is coming in for his hospital check visit 08/22/2020 and will obtain XR prior to this appointment. Tegan Guillen PA-C documented in this encounter Plan of Treatment Upcoming Encounters Date Type Specialty Care Team Description 07/08/2022 Office Visit Radiation Oncology Shelley Kimble, JOURDAN [facility] RADIATION ONCWARNER [place], [place] [address] (Wo rk) documented as of this encounter Visit Diagnoses Not on filedocumented in this encounter Care Teams Mamma Logist Relationship Specialty Start Date End Date Grover Herman MD PCP - General Family Medicine 07/19/20 [address] [place] [address] documented as of this encounter
--- OUTSIDE RECORDS SUMMARY | 2022-07-01 13:46 | XMS_ITS | Encounter Summary ---
:1955 Author Organization [facility] [place] [address] Care Team Providers Name Role Phone Grover Herman MD Primary Care Provider Encounter Details Date Type Department Care Team Description 09/28/2020 Telephone Radiation Oncology a erika [facility] Jun Sharif [address] [place] [phone] Social History Tobacco Use Types [...] 07/08/2022 Office Visit Radiation Oncology Shelley Kimble, RIG SITE ENGINEER [facility] [place], [place] [address] (Wo rk) documented as of this encounter Visit Diagnoses Not on filedocumented in this encounter Care Teams Unindentured Apprentice Relationship Specialty Start Date End Date Grover Herman MD PCP - General Family Medicine 07/19/20 [address] [place] [address] documented as of this encounter
--- OUTSIDE RECORDS SUMMARY | 2022-07-01 13:46 | XMS_ITS | Encounter Summary ---
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 Failure of right total hip arthroplasty, [place] [address] ORTHOPAEDIC SURG [place], [place] [address] (Wo rk) Social History Tobacco [...] Time Taken Comments Blood Pressure 164/94 12/19/2020 9:18 AM EDT Pulse 62 12/19/2020 9:18 AM EDT Temperature - - Respiratory Rate - - Oxygen Saturation - - Inhaled Oxygen Concentration - - Weight 101.6 kg (224 lb) 12/19/2020 9:18 AM EDT Height 180.3 cm (5' 11) 12/19/2020 9:18 AM EDT Body Mass Index 31.24 12/19/2020 9:18 AM EDT documented in this encounter Progress Notes Jack Lewis MD - 12/19/2020 10:00 AM EDT Date of encounter: 12/19/2020 Arthroplasty/Orthopaedic History: 1. 07/26/2020 Right Revision REGGIE with ETO Dr. Lewis 2. 01/12/[address] Lewis 1. ??07/31/[address] Christensen Scheduled follow-up Dominick Castro is a 65-year-old male returning to clinic today for 6-month follow-up of his right total hip arthroplasty revision. He does report that this recovery was slower than his left side which was done last summer. Both femoral stems had extensive proximal femoral osteolysis but his left stem was able to be removed without an extended trochanteric osteotomy. On the right side his ETO was noted to have shifted during the initial healing process. He is now walking without assistive devices andwithout limp. He does report some occasional aching on the outside of his hip but otherwise his painis significantly improved over preoperative status. He denies any other changes in his health other than a new diagnosis of prostate cancer from the fall. His past medical history, medications, and allergies were reviewed and updated in the medical recordtoday. His review of systems today is negative for fevers or chills. Blood pressure (!) 164/94, pulse 62, height 180.3 cm (5' 11), weight 101.6 kg (224 lb). Today he is well-appearing and in no acute distress. He walks with a nonantalgic, non-Trendelenburg gait in clinic and is able to get out of a chair without using his arms. When seated his leg lengths are equal. He has full 5 out of 5 abduction strength and 5 out of 5 hip flexion strength. Both hips have full supple range of motion without anterior posterior impingement pain with preserved internal and external rotation. Both lower extremities are neurovascular intact with palpable distal pulses. Imaging: Updated imaging is obtained today and personally reviewed by me including an AP pelvis and AP and lateral views of the right hip. These are compared to previous postoperative imaging. He has bilateral reclaim femoral stems. On the right side there is sequela of an extended trochanteric osteotomy with healing bridging callus. There has been some proximal migration of the osteotomy piece. On the lateral view there is some anterior translation of the fragment but this is stable compared to theimmediate postoperative x-ray and there has been no further proximal or anterior translation of the pes. 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 Overall he is doing well and is returning to his functional baseline. He has no pain in his preoperative symptoms are resolved. Full hip abductor strength. He is walking without a limp or assistive device. At this point I will extend his follow-up to 6 months with return to clinic in July with repeat x-rays of both hips. He knows to call for sooner visit if he has questions, concerns, or problems. All of his questions were answered. I will see him back in 7 months. 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
--- OUTSIDE RECORDS SUMMARY | 2022-07-01 13:46 | XMS_ITS | Encounter Summary ---
:1955 Author Organization [facility] [place] [address] Care Team Providers Name Role Phone Grover Herman MD Primary Care Provider Reason for Visit Reason Comments Injections IM Lupron High Dollar Medication (Routine) - Specialty Diagnoses / Procedures Referred By Contact Refer red To Contact Hematology and Oncology Diagnoses Malignant neoplasm of prostate Sherman Davis MD [facility] Infusion Procedures TC LEUPROLIDE ACETATE 7.5MG, FOR DEPOST SUSPENSION (LUPRON DEPOT) INFUSION ROOM [address] [place] [address] [place] [id number] Referral ID Status Reason Start Date Expiration Date Visits V isits Requested Authorized [id number] 10/05/2020 09/17/2021 99 99 Encounter Details Date Type Department Care Team Description 11/07/2020 [facility] prostate [address] [place] [phone] Social History Tobacco Use Types [...] Sign Reading Time Taken Comments Blood Pressure 165/89 11/07/2020 2:30 PM EST Pulse 82 11/07/2020 2:30 PM EST Temperature 35.9 ??C (96.7 ??F) 11/07/2020 2:30 PM EST Respiratory Rate 18 11/07/2020 2:30 PM EST Oxygen Saturation 97% 11/07/2020 2:30 PM EST Inhaled Oxygen Concentration - - Weight 100.2 kg (221 lb) 11/07/2020 2:30 PM EST Height 180.3 cm (5' 10.98) 11/07/2020 2:30 PM EST Body Mass Index 30.84 11/07/2020 2:30 PM EST documented in this encounter Progress Notes Carlyn Kinney RN - 11/07/2020 3:00 PM EST Infusion Note Diagnosis:Prostate Cancer Treatment: Lupron Injection Lupron 7.5 mg injected in left buttocks Assessment: The patient had been experiencing Right mid quadrant pain and some radiation to back. Healso c/o epigastric gas. This has been since starting casodex. He has been instructed to stop the casodex by Dr. Moore and has not taken any today. He did have labs drawn and these have been given to Ricki Ashby who will review with Dr. Moore. Patient instructed on side effects of Lupron. Education material given. Patient states understandingof teaching, Patient aware to call clinic with any questions or concerns. Ricki Ashby RN visited with patient while in infusion. Plan: Return to clinic as scheduled. documented in this encounter Plan of Treatment Upcoming Encounters Date Type Specialty Care Team Description 07/08/2022 Office Visit Radiation Oncology Shelley Kimble, BULK PLANT MANAGER [facility] RADIATION ONCWARNER [facility], [place] [address] (Wo rk) documented as of this encounter Visit Diagnoses Diagnosis Malignant neoplasm of prostate documented in this encounter Administered Medications Inactive Administered Medications - up to 3 most recent administrations Medication Order MAR Action Action Date Dose Rate Site leuprolide (Lupron Depot) Given 11/07/2020 2:57 PM EST 7.5 mg Left Gluteal injection 7.5 mg 7.5 mg, Intramuscular, ONCE, 1 dose, On Thu11/07/20 at 1500, Routine, This agent is restricted to outpatient use. Is this drug being given as an outpatient? Yes documented in this encounter Care Teams Medical Record Consultant Relationship Specialty Start Date End Date Grover Herman MD PCP - General Family Medicine 07/19/20 [address] [place] [address] documented as of this encounter
--- OUTSIDE RECORDS SUMMARY | 2022-07-01 13:46 | XMS_ITS | Encounter Summary ---
:1955 Author Organization [facility] [place] [address] Care Team Providers Name Role Phone Grover Herman MD Primary Care Provider Reason for Visit Reason Onset Date Comments Questions 01/15/2021 Question about casod ex Encounter Details Date Type Department Care Team Description 01/15/2021 Telephone Hematology Oncology at Carlyn Kinney, Questions (Question [facility] RN about casodex) [address] [place] [phone] Social History Tobacco Use Types Packs/Day Years [...] this encounter Miscellaneous Notes Telephone Encounter - Carlyn Kinney, RN - 01/15/2021 11:48 AM EDT Dominick is here for lupron injection. He is asking for clarification on restarting the casodex. Question to Dr. Moore who states the patient should remain off the casodex indefinitely. Dominick verbalizes understanding. documented in this encounter Plan of Treatment Upcoming Encounters Date Type Specialty Care Team Description 07/08/2022 Office Visit Radiation Oncology Shelley Kimble, SWING MANAGER [facility] RADIATION ONCWARNER [place], [place] [address] (Wo rk) documented as of this encounter Visit Diagnoses Not on filedocumented in this encounter Care Teams Executive Search Consultant Relationship Specialty Start Date End Date Grover Herman MD PCP - General Family Medicine 07/19/20 [address] [place] [address] documented as of this encounter
--- OUTSIDE RECORDS SUMMARY | 2022-07-01 13:46 | XMS_ITS | Encounter Summary ---
:1955 Author Organization [facility] [place] [address] Care Team Providers Name Role Phone Grover Herman MD Primary Care Provider Reason for Referral Physical Therapy (Routine) - Specialty Diagnoses / Procedures Referred By Contact Refer red To Contact Diagnoses Failure of right total hip arthroplasty, initial encounter Tegan Guillen, GINNY [facility] D [place] [address] Referral ID Status Reason Start Date Expiration Date Visits V isits Requested Authorized [id number] Evaluate and 08/22/2020 02/18/2021 12 12 Treat Reason for Visit Reason Comments Post Op 07/26/20 RIGHT REGGIE REVISION Encounter Details Date Type Department Care Team Description 08/22/2020 Office Visit Orthopaedics at [facility] Jack Lewis, Failure of right [facility] total hip Drive [facility] arthroplasty, [place] [phone] DR initial encounter [phone] ORTHOPAEDIC SURG [place], [place] [address] (Wo rk) Social History Tobacco [...] Sign Reading Time Taken Comments Blood Pressure 164/78 08/22/2020 10:07 AM EST Pulse 68 08/22/2020 10:07 AM EST Temperature - - Respiratory Rate - - Oxygen Saturation - - Inhaled Oxygen Concentration - - Weight 97.5 kg (215 lb) 08/22/2020 10:07 AM EST reporte d Height 180.3 cm (5' 10.98) 08/22/2020 10:07 AM EST rep orted Body Mass Index 30 08/22/2020 10:07 AM EST documented in this encounter Progress Notes Tegan Guileln PA - 08/22/2020 11:00 AM EST Arthroplasty/Orthopaedic History: 07/26/2020 ([place]) Right REGGIE aseptic loosening, 1. ??Aseptic Loosening??Right??Femoral stem 2. 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 ??Extensive proximal femoral osteolysis ?? Movement of extended troch osteotomy 08/14/2020 HPI: Dominick Castro is a very pleasant 64 y.o. year-old male and is now 1 month post right total hiprevision with extended troch osteotomy. He had been doing very well until he was stretching and felta pop in his hip. XR were obtained and sent to clinic for review. The Extended troch osteotomy had shucked proximally a bit, though was still caught under the cerclage wire. He was advised to remain TDWB on this extremity which he has been compliant with. He has discontinued the oxycodone and is taking primarily tylenol for pain management. He does have a prescription of Percocet for his back which he has taken a few times. No fevers, chills, nausea, vomiting, or symptoms of infection. Anticoagulation status ASA 81mg BID for 30 days discussed stop date 08/23/2020 ROS: Denies: fever, chills, night sweats, nausea, or vomiting BP 164/78 (BP Location (NBP): Left arm, Patient Position: Sitting, BP Cuff Sizes: Adult (25-34 cm)) Pulse 68 Ht 180.3 cm (5' 10.98) Comment: reported Wt 97.5 kg (215 lb) Comment: reported BMI30.00 kg/m?? Physical Exam: Well-appearing male in no acute distress. Alert and Oriented x 3 and answers all questions appropriately. The incision is well healed, with no signs of infection. Mid incision there is a spitting suture which was removed in clinic. Dominick is sitting comfortably on the exam table. We are not going to test his abduction or ER today to avoid disrupting the osteotomy site. X-RAYS: Multiple radiographic views were obtained at my request and reviewed with the patient. Againnoted: Extended Troch Osteotomy with proximal shucking, though is stable from last XR on 08/14/2020. Cerclage wires are continuing to capture the troch osteotomy. Questionnaire Responses: [facility] Postop Visit 02/08/2020 PROMIS-10 General Health Very Good PROMIS-10 Quality of Life Very Good PROMIS-10 Physical Health Very Good PROMIS-10 Mental Health Very Good PROMIS-10 Social Activity Very Good PROMIS-10 Everyday Activities Mostly PROMIS-10 Pain 2 PROMIS-10 Fatigue None PROMIS-10 Social Roles Very Good PROMIS-10 Anxious or Depressed Never PROMIS PHYSICAL HEALTH SCORE 54.1 PROMIS MENTAL HEALTH SCORE 56 HOOS JR Scores 70.43 Problems with surgical incision/wound after surgery No Gone to ER since knee surgery No Admitted to hospital since recent ortho surgery No Additional surgery on same body part No REGGIE Grade 9 Pain in other HIP Moderate Back pain at this moment None Satisfaction with Treatment Satisfied Choose Same Treatment Again Definitely yes Orthopeadics [facility] Response 02/08/2020 HOOS JR Scores 70.43 Spine [facility] 02/08/2020 HOOS JR Scores 70.43 ASSESSMENT/PLAN: Mr. Castro is a 64 y.o. year old male status post right total hip revision. Postoperative course complicated by proximal movement of the extended troch osteotomy site. Plan discussed in conjunction with Dr. Lewis. We had a long discussion regarding Dominick's surgery and the movement of his extended troch osteotomy site. Multiple radiographic views were obtained at my request and reviewed with the patient. Again noted: Extended Troch Osteotomy with proximal shucking, though is stable from last XR on 08/14/2020. Cerclagewires are continuing to capture the troch osteotomy. We reviewed the restrictions that will be in place over the next month: No active abductor strengthening No stretching of the external rotators TDWB We will have him FU in one month with XR images. If things look good, we will plan to allow him to WBAT and release him from his ER stretching and Abductor strengthening precautions. If the osteotomy site has escaped the cerclage wire, we will likely need to surgically fix the site with a plate. FU in one month with the following XR: AP pelvis and an AP hip, no lateral All questions were answered. Signed: GINNY Dillon 08/22/2020 documented in this encounter Plan of Treatment Upcoming Encounters Date Type Specialty Care Team Description 07/08/2022 Office Visit Radiation Oncology Shelley Kimble APRN [facility] RADIATION ONCWARNER [place], [place] [address] (Wo rk) Scheduled Referrals Name Type Priority Associated Diagnoses Order S chedule Referral to Outpatient Referral Routine Failure of right Orde red: Physical Therapy total hip 08/22/2020 arthroplasty, initial encounter documented as of this encounter Results XR Hip 1 view Right (09/19/2020 8:30 AM EST) Anatomical Region Laterality Modality Hip Right Digital Radiography Specimen (Source) Anatomical Location Collection Method / Collectio n Time Received Time / Laterality Volume Impressions 09/19/2020 10:06 AM EST Interval narrowing of the right proximal femoral osteotomy gap. No other significant interval changes. Thank you for letting us participate in the care of this patient. For questions regarding this report, please contact e number below. ? Narrative 09/19/2020 10:06 AM EST EXAMINATION: XR PELVIS (GENERIC), XR HIP 1 VIEW RIGHT CLINICAL HISTORY: AP pelvis, R REGGIE, Exte nded troch ostotomy DOS 07/26/2020 TECHNIQUE: AP views of the pelvis and right hip COMPARISON: Pelvic and right hip radiographs 08/22/20 FINDINGS: Unchanged appearances of the bilateral t otal hip arthroplasties. Right femoral osteotomy gap has decreased in size in t he interim from 14 mm to 10 mm. Intact right femoral cerclage wires. No new per iprosthetic lucencies. Unremarkable soft tissues. Procedure Note Lev Mauricio MD - 09/19/2020Format ting of this note might be different from the original. EXAMINATION: XR PELVIS (GENERIC), XR HIP 1 VIEW RIGHT CLINICAL HISTORY: AP pelvis, R REGGIE, Exte nded troch ostotomy DOS 07/26/2020 TECHNIQUE: AP views of the pelvis and right hip COMPARISON: Pelvic and right hip radiographs 08/22/20 FINDINGS: Unchanged appearances of the bilateral t otal hip arthroplasties. Right femoral osteotomy gap has decreased in size in t he interim from 14 mm to 10 mm. Intact right femoral cerclage wires. No new per iprosthetic lucencies. Unremarkable soft tissues. IMPRESSION Interval narrowing of the right proximal femoral osteotomy gap. No other significant interval changes. Thank you for letting us participate in the care of this patient. For questions regarding this report, please contact e number below. Electronically signed by: Lev arreola MD, [facility] ([phone]), at 09/19/2020 10:06 AM Jack Lewis MD IMG DX ORDERABLES XR Pelvis (Generic) (09/19/2020 8:30 AM EST) Anatomical Region Laterality Modality Pelvis N/A Digital Radiography Specimen (Source) Anatomical Location Collection Method / Collectio n Time Received Time / Laterality Volume Impressions 09/19/2020 10:06 AM EST Interval narrowing of the right proximal femoral osteotomy gap. No other significant interval changes. Thank you for letting us participate in the care of this patient. For questions regarding this report, please contact e number below. ? Electronically signed by: Lev arreola MD, [facility] ([phone]), at 09/19/2020 10:06 AM Narrative 09/19/2020 10:06 AM EST EXAMINATION: XR PELVIS (GENERIC), XR HIP 1 VIEW RIGHT CLINICAL HISTORY: AP pelvis, R REGGIE, Exte nded troch ostotomy DOS 07/26/2020 TECHNIQUE: AP views of the pelvis and right hip COMPARISON: Pelvic and right hip radiographs 08/22/20 FINDINGS: Unchanged appearances of the bilateral t otal hip arthroplasties. Right femoral osteotomy gap has decreased in size in t he interim from 14 mm to 10 mm. Intact right femoral cerclage wires. No new per iprosthetic lucencies. Unremarkable soft tissues. Procedure Note Lev Mauricio MD - 09/19/2020Format ting of this note might be different from the original. EXAMINATION: XR PELVIS (GENERIC), XR HIP 1 VIEW RIGHT CLINICAL HISTORY: AP pelvis, R REGGIE, Exte nded troch ostotomy DOS 07/26/2020 TECHNIQUE: AP views of the pelvis and right hip COMPARISON: Pelvic and right hip radiographs 08/22/20 FINDINGS: Unchanged appearances of the bilateral t otal hip arthroplasties. Right femoral osteotomy gap has decreased in size in t he interim from 14 mm to 10 mm. Intact right femoral cerclage wires. No new per iprosthetic lucencies. Unremarkable soft tissues. IMPRESSION Interval narrowing of the right proximal femoral osteotomy gap. No other significant interval changes. Thank you for letting us participate in the care of this patient. For questions regarding this report, please contact e number below. Jack Lewis MD IMG DX ORDERABLES documented in this encounter Visit Diagnoses Diagnosis Failure of right total hip arthroplasty, initial encounter Failure of right total hip arthroplasty, initial encounter documented in this encounter Care Teams Telephone Operators Supervisor Relationship Specialty Start Date End Date Grover Herman MD PCP - General Family Medicine 07/19/20 [address] [place] [address] documented as of this encounter
--- OUTSIDE RECORDS SUMMARY | 2022-07-01 13:46 | XMS_ITS | Encounter Summary ---
:1955 Author Organization [facility] [place] [address] Care Team Providers Name Role Phone Grover Herman MD Primary Care Provider Encounter Details Date Type Department Care Team Description 08/13/2020 Telephone Orthopaedics at [facility] [place] [phone] Social History Tobacco Use Types Packs/Day [...] this encounter Miscellaneous Notes Telephone Encounter - Nikki Forbes RN - 08/13/2020 4:14 PM EST Patient calls in to update that he has completed his xrays up in [facility]. We have not received results at this time, call out to request images to be pushed and report to be faxed, left message Telephone Encounter - Nikki Forbes RN - 08/13/2020 8:14 AM EST Patient calls in with concerns of increased right hip pain. Dominick is s/p revision right REGGIE on 07/26/[address] Lewis. He has been doing well until last night around 4am when he stretched while laying inbed and felt pop followed by sharp pain that has faded since then. He has not had any increased painwith ambulating, although he does state that he does not put his full weight on his leg yet. He has not noticed any increased swelling or bruising. He is concerned as he states the pop was so loud it woke his . He does not feel that he has dislocated or broken anything, however he would like to have xrays completed up in [facility] to make sure he has not injured himself. Orders faxed with instr uctions to push images and fax report when complete. Dominick will call us with he has completed this xrays documented in this encounter Plan of Treatment Upcoming Encounters Date Type Specialty Care Team Description 07/08/2022 Office Visit Radiation Oncology Shelley Kimble, SIGN MAKER [facility] [place], [place] [address] (Wo rk) documented as of this encounter Visit Diagnoses Diagnosis History of total hip arthroplasty, right Failure of right total hip arthroplasty, sequela documented in this encounter Care Teams Chief Crew Scheduler Relationship Specialty Start Date End Date Grover Herman MD PCP - General Family Medicine 07/19/20 [address] [place] [address] documented as of this encounter
--- OUTSIDE RECORDS SUMMARY | 2022-07-01 13:46 | XMS_ITS | Encounter Summary ---
:1955 Author Organization [facility] [place] [address] Care Team Providers Name Role Phone Grover Herman MD Primary Care Provider Encounter Details Date Type Department Care Team Description [facility]/06[facility]2020 [facility] [address] [phone] Social History Tobacco Use [...] Telephone Encounter - Yissel Ashby RN - 11/06/2020 4:05 PM EST Radiation Oncology Nurse Telephone Note [facility] [place] [place] Dr Moore informed of patient's recent c/o dull stomach ache while taking bicalutamide. It has improved some with taking it with food, but not completely resolved. ( see previous telephone notes) Dr Moore recommended that if he is still having this issue, to stop taking the bicalutamide for 5 days and see if discomfort is resolved. He also ordered LFTs to be done soon. Intervention: called pt. Left voice mail on mobile phone with this explanation of stopping med if heis still having the dull stomach ache and needing blood work drawn. Plan: he is coming to clinic tomorrow for Lupron. Nursing will touch base with him then to confirm that he got his message and understands the plan. documented in this encounter Plan of Treatment Upcoming Encounters Date Type Specialty Care Team Description 07/08/2022 Office Visit Radiation Oncology Shelley Kimble, RECYCLING MANAGER [facility] RADIATION [place], [place] [address] (Wo rk) documented as of this encounter Visit Diagnoses Not on filedocumented in this encounter Care Teams Reclamation Kettle Tender Relationship Specialty Start Date End Date Grover Herman MD PCP - General Family Medicine 07/19/20 [address] [place] [address] documented as of this encounter
--- OUTSIDE RECORDS SUMMARY | 2022-07-01 13:46 | XMS_ITS | Encounter Summary ---
:1955 Author Organization [facility] [place] [address] Care Team Providers Name Role Phone Grover Herman MD Primary Care Provider Reason for Visit Reason Comments Follow-up Encounter Details Date Type Department Care Team Description 12/27/2020 Office Visit Radiation Oncology at [place], Terry Chu alignant neoplasm of [facility] prostate [facility] [address] [place] [address] [place] [address] [phone] Social History Tobacco Use Types Packs/Day Years [...] Sign Reading Time Taken Comments Blood Pressure 165/86 12/27/2020 3:21 PM EDT Pulse 87 12/27/2020 3:21 PM EDT Temperature - - Respiratory Rate 18 12/27/2020 3:21 PM EDT Oxygen Saturation 97% 12/27/2020 3:21 PM EDT Inhaled Oxygen Concentration - - Weight 98.9 kg (218 lb) 12/27/2020 3:21 PM EDT Height - - Body Mass Index 30.4 12/19/2020 9:18 AM EDT documented in this encounter Progress Notes Og Flynn MD - 12/27/2020 3:30 PM EDT Identification Dominick Castro is a 65 y.o. 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 Staging mpMRI 09/27/20 showed a 57 cc gland with PI-RADs 5 lesion in right PZ with curvilinear contact along gland edge. The patient met with Dr. Moore on 09/28/20. Treatment options were reviewed. The patient indicated interest in prostate brachytherapy as a component of his radiation therapy management. 7.5 mg Lupron was initiated 10/05/20, and this was repeated 11/07/20 and again 12/06/20. The patient now presents for discussion of brachytherapy as a component of his management. Staging Cancer Staging Malignant neoplasm of prostate Staging form: Prostate, AJCC 8th Edition - Clinical: Stage IIC (cT2b, cN0, cM0, PSA: 11, Grade Group: 3) - Signed by Sherman Moore MD on 09/25/2020 Interval history Ongoing RUQ abdominal pain led to diagnosis of cholecystitis. He is scheduled for cholecystectomy inlate December. He continues off bicalutamide. Tolerating his hormonal therapy reasonably well. He notes hot flashes, some of which do awaken him at night. However, he prefers no medical intervention at this time. ROS Prostate IPSS and MATTIE(Pt Entered): Today's answers and scores Prostate Scores and Responses 12/27/2020 Confidence, level - past 6 months Moderate Penetration - past 6 months Almost always or always Penetration, maintain - past 6 months Almost always or always Erection, maintain - past 6 months Slightly difficult Sexual satisfaction - past 6 months Most times (much more than half the time) Sexual Health in Men 21 (MILD ED) Incomplete emptying Not at all Frequency Less than 1 time in 5 Intermittency Less than 1 time in 5 Urgency Less than 1 time in 5 Weak Stream Less than 1 time in 5 Straining Less than 1 time in 5 Nocturia 1 time Quality of life Mostly satisfied Total IPSS Score 6 ( MILD LUTS) EPIC-PC Responses 12/27/2020 Urinary Incontinence Symptom Score 0 Urinary Irritation/Obstructive Symptom Score 2 Bowel Symptom Score 0 Vitality/Hormonal Symptom Score 0 Overall Prostate Cancer QOL Score 2 Urinary function problem Very small problem Urinary control Total control # of pads used per day - Urinary dripping/leakage problem No problem Pain or burning with urination - Weak urine stream/incomplete bladder emptying Small problem Need to urinate frequently - Rectal pain or urgency of bowel movements No problem Increased frequency of your bowel movements - Overall problems with your bowel movements No problem Bloody stools - Ability to reach orgasm Good Quality of your erections - Problem with sexual function or lack of it Very small problem Hot flashes or breast tenderness/enlargement - Feeling depressed No problem Lack of energy - Current Outpatient Medications on File Prior to Visit Medication Sig Dispense Refill ??? oxyCODONE-acetaminophen (Percocet) 5-325 mg Tablet 1 tablet every 4 hours as needed (hip and shoulder pain). No current facility-administered medications on file prior to visit. No Known Allergies Physical Exam BP 165/86 (Patient Position: Sitting) Pulse 87 Resp 18 Wt 98.9 kg (218 lb) SpO2 97% BMI 30.40 kg/m?? Sclera anicteric. Mild RUQ discomfort with palpation. Abdomen soft, nontender, positive bowels sounds, no hepatosplenomegaly. No suprapubic tenderness. External genitalia unremarkable. No pretibial edema. Rectal with normal tone, guiac negative stool, no masses. Prostate is smooth, symmetric, mildly enlarged, without nodularity, tenderness, induration, or other focal abnormality. Investigations MRI 09/27/20 By my measurements, prostate dimensions are: 5.3 (lat) x 4.3 (ant-post) 4.8 (sup-inf) => 57 cc No clear ELIO. MRI 12/27/20 By my measurements, prostate dimensions are: 4.8 (lat) x 3.7 (ant-post) x 4.4 (sup-inf) => 41 cc Assessment and Plan Dominick Castro is a 65 y.o. 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 Staging mpMRI 09/27/20 showed a 57 cc gland with PI-RADs 5 lesion in right PZ with curvilinear contact along gland edge. We discussed the full panoply of treatment options for this intermediate risk prostate cancer. Radiation therapy offers comparable benefit to surgical resection for at least 20 to 25 years following treatment. With surgery, however, there would be a significant risk of positive margin or extracapsular disease extension, leading to recommendation for post-operative radiation therapy, thereby exposing the patient to the risks associated with both treatment modalities. The long-term side effects of radiation treatment are relatively low-risk, other than the significant risk (30-40%) of erectile dysfunction, though this risk is lower than the risk of ED seen with surgery. (Lenny et al, [facility] [place] 2016; 375:0027-0847.) With radiation treatment there is a low risk of long-term significant damage to bowel or bladder function (less than 5%), and an extremely low risk of second malignancy (at or below 2% at 20 years, escalating over decades). Generally, short-term urinary or GI side effects are manageable with EBRT. Androgen deprivation therapy (ADT) has been shown to be of benefit in conjunction with external beamradiotherapy for patients with higher risk prostate cancer. It is reasonable for Mr. Castro to be treated with ADT in conjunction with radiation therapy. With significant risk of extracapsular disease extension, Dominick Castro was advised against brachytherapy as a sole treatment modality. However, brachytherapy seed implantation of the prostate has been shown to improve outcomes for both intermediate and high-risk prostate cancer patients in a large scale multi-institutional trial from [place] recently published in IJROBP (Ben et al, IJROBP 2016; j.ijrobp.2016.11.026), with patients who received LDR boost being twice as likely to avoid biochemicalprogression at 9 years than those who received traditional external-beam boost (recurrence rates 17%versus 38%, respectively, all patients with concomitant androgen deprivation therapy, ADT extending over 12 months). Short-term issues include worsening LUTS for some weeks after the procedure, and a low-risk of urethral stricture within the first years following the implant. Current MRI shows volumetric reduction in prostate dimensions, from 57 cc to 41 cc. With this reduction the anatomy is suitable for a brachytherapy seed implant. We reviewed risks and benefits of seed implant as a component of radiation therapy treatment. Mr. Castro wishes to proceed with this approach. We will arrange for Cs-131 seed implant in the coming weeks as boost dose to the prostate. Plan willbe then to continue with external beam radiation therapy as consolidation treatment. Hormone therapywill continue for a total of 12 months, consistent with the Lenny study combining seed boost, EBRT, and ADT. Dominick Castro was seen in follow-up for a total of 40 minutes, with 40 minutes of that time spent discussing his current clinical condition, reviewing treatment alternatives, and planning further management. documented in this encounter Plan of Treatment Upcoming Encounters Date Type Specialty Care Team Description 07/08/2022 Office Visit Radiation Oncology Shelley Kimble APRN [facility] RADI[facility] [place], [place] [address] (Wo rk) documented as of this encounter Procedures Procedure Name Priority Date/Time Associated Comments Diagnosis HEMOGRAM Routine 12/27/2020 4:42 PM Malignant neoplasm Res ults for this EDT of prostate procedure are i n the results section. DIFFERENTIAL, Routine 12/27/2020 4:42 PM Malignant neoplasm Re sults for this AUTOMATED EDT of prostate procedure are i n the results section. HC CBC,PLT & AUTO DIFF Routine 12/27/2020 4:42 PM Malignant ne oplasm EDT of prostate HC VENIPUNCTURE Routine 12/27/2020 4:42 PM Malignant neoplasm Results for this EDT of prostate procedure are i n the results section. HC PROSTATE SPECIFIC Routine 12/27/2020 4:42 PM Malignant neop lasm Results for this ANTIGEN EDT of prostate procedure are i n the results section. COMPREHENSIVE Routine 12/27/2020 4:42 PM Malignant neoplasm Re sults for this METABOLIC PANEL EDT of prostate procedure ar e in (NON-FASTING) the results section. documented in this encounter Results Differential, Automated (12/27/2020 4:42 PM EDT) P athologist Signature Neutrophils % 50.2 % [facility] Neutr Abs (ANC) 3.38 1.70 - [facility] 6.10 [facility] x10(3)/[facility] LABORATORY Lymphocytes % 40.1 % [facility] Lymphocytes Abs 2.7 0.9 - 3.2 [facility] x10(3)/[facility]ATORY Monocytes % 7.4 % [facility] Monocyte Abs 0.5 0.3 - 0.9 [facility] x10(3)/[facility] LAB[facility]ATORY Eosinophils % 1.5 % [facility] Eosinophils Abs 0.1 0.0 - 0.4 [facility] x10(3)/[facility] LAB[facility]AT[facility] Basophils % 0.7 % [facility] Basophils Abs 0.0 0.0 - 0.1 [facility] x10(3)/[facility] LABORATORY Immature Gran % 0.10 % [facility] Comment: Immature granulocytes(IG's)percentage an d absolute count will include metamyelocytes, myelocytes, and promyelo cytes. Blood smears from CBCs yielding IG's will be scanned manually for concor dance. If this scan disagrees with the automated IG or if promyelocytes are not ed, a manual differential will be performed. Sarai Gran Abs 0.01 0.00 - 0.04 x10(3)/[facility] Specimen Anatomical Collection Method Collection Time Receive d Time (Source) Location / / Volume Laterality Blood specimen 12/27/2020 4:42 PM 021 4:55 (specimen) EDT PM EDT Resulting Agency Comment Spec In Lab Og Flynn MD HEMATOLOGY ORDERABLES Performing Organization Address City/State/[place] [address] (ABNORMAL) Hemogram (12/27/2020 4:42 PM EDT) Analysis Performed At Patho logist Time Signature WBC 6.8 4.0 - 9.5 [facility] x10(3)/[facility] LAB[facility] RBC 5.01 4.58 - [facility] 5.54 [facility] x10(6)/[facility] LABORATORY Hemoglobin 14.3 13.7 - [facility] 16.5 gm/dL [facility] Hematocrit 42.4 40.5 - [place] 48.5 % [facility] MCV 84.6 82.9 - [place] 93.1 [facility] LABORATORY MCH 28.5 27.5 - [place] 32.1 pg [facility] MCHC 33.7 32.0 - [place] 35.7 gm/dL [facility] Platelets 229 145 - 357 [place] x10(3)/[facility]AT[facility] RDWSD 46.8 (H) 36.0 - [place] 45.0 [facility] LABORATORY RDWCV 15.2 (H) 11.4 - [place] 13.8 % [facility] MPV 12.1 7.6 - 12.9 [place] [facility] LAB[facility]ATORY nRBC % Auto 0.0 % [facility] nRBC Abs Auto 0.000 0.000 - [place] 0.000 [facility] x10(3)/[facility] LABORATORY Specimen Anatomical Collection Method Collection Time Receive d Time (Source) Location / / Volume Laterality Blood specimen 12/27/2020 4:42 PM 021 4:55 (specimen) EDT PM EDT Resulting Agency Comment Spec In Lab Og Flynn MD HEMATOLOGY ORDERABLES Performing Organization Address City/State/[place] [address] (ABNORMAL) Testosterone, total (12/27/2020 4:42 PM EDT) athologist Signature Testo Total 0.24 (L) 1.93 - [place] 7.40 ng/mL [facility] Comment: Pediatric Reference Ranges: ? [...] (Source) Location / / Volume Laterality Blood specimen 12/27/2020 4:42 PM 021 4:55 (specimen) EDT PM EDT Resulting Agency Comment Spec In Lab Og Flynn MD CHEMISTRY ORDERABLES Performing Organization Address City/State/ZIP [place] [address] PSA (Ultrasensitive) (12/27/2020 4:42 PM EDT) athologist Signature PSA Total 1.23 0.00 - [place] (Ultrasensitiv 4.00 ng/mL [facility] Comment: PLEASE NOTE: The above reference interva l is intended for healthy males with an intact prostate. Values within this refe rence interval may indicate recurrence in men who have undergone radical prosta tectomy. Specimen Anatomical Collection Method Collection Time Receive d Time (Source) Location / / Volume Laterality Blood specimen 12/27/2020 4:42 PM 021 4:55 (specimen) EDT PM EDT Resulting Agency Comment Spec In Lab Og Flynn MD CHEMISTRY ORDERABLES Performing Organization Address City/State/[place] [address] Comprehensive metabolic panel (non-fasting) (12/27/2020 4:42 PM EDT) P athologist Signature Glucose Lvl 90 65 - 199 [facility] mg/dL [facility] Comment: Diabetes: >=200 mg/dL plus symp toms BUN 20 10 - 20 mg/dL [facility] Creatinine 0.96 0.80 - 1.50 mg/dL [facility] Sodium 140 135 - 145 mmol/L [facility] Potassium 4.2 3.5 - 5.0 mmol/L [facility] Comment: Please note: ??Patients with WBC >100,00 0 may have falsely elevated Potassium levels. ??For accurate Potassium quantif ication in these patients send serum separator tube (gold top) for subsequent determinations. ??Contact the Clinical Chemistry Laboratory if there are any qu estions. Chloride 104 98 - 107 mmol/L [facility] CO2 27 22 - 31 mmol/L [facility] Anion Gap 9 5 - 15 mmol/L [facility] Calcium 9.3 8.5 - 10.5 mg/dL [facility] Total Protein 7.3 6.1 - 8.0 gm/dL [facility] Albumin 4.5 3.2 - 5.2 gm/dL [facility] AST 26 0 - 39 unit/L [facility] ALT 34 0 - 55 unit/L [facility] Alk Phos 86 40 - 130 unit/L [facility] Total Bilirubin 0.6 0.2 - 1.3 mg/dL [facility] Estimated GFR 82 >=60 mL/min/1.73 m?? [facility] Comment: This patient? s estimated glomerular filtration rate (eGFR) is between 82 mL/min/1.73 m2 (patients with less muscl e mass per kg body weight) and 95 mL/min/1.73 m2 (patients with more muscl e [...] (Source) Location / / Volume Laterality Blood specimen 12/27/2020 4:42 PM 021 4:55 (specimen) EDT PM EDT Resulting Agency Comment Spec In Lab Og Flynn MD CHEMISTRY ORDERABLES Performing Organization Address City/State/[place] [address] documented in this encounter Visit Diagnoses Diagnosis Malignant neoplasm of prostate documented in this encounter Care Teams Roller Coaster Designer Relationship Specialty Start Date End Date Grover Herman MD PCP - General Family Medicine 07/19/20 [address] [place] [address] documented as of this encounter
--- OUTSIDE RECORDS SUMMARY | 2022-07-01 13:46 | XMS_ITS | Encounter Summary ---
:1955 Author Organization [facility] [place] [address] Care Team Providers Name Role Phone Grover Herman MD Primary Care Provider Encounter Details Date Type Department Care Team Description 11/07/2020 Telephone Radiation Oncology a [facility] Jun Sharif [address] [place] [phone] Social History Tobacco Use Types [...] 07/08/2022 Office Visit Radiation Oncology Shelley Kimble, ELECTROPLATER HELPER [facility] [place] [address] (Wo rk) documented as of this encounter Visit Diagnoses Not on filedocumented in this encounter Care Teams Stick Puller Relationship Specialty Start Date End Date Grover Herman MD PCP - General Family Medicine 07/19/20 [address] [place] [address] documented as of this encounter
--- OUTSIDE RECORDS SUMMARY | 2022-07-01 13:46 | XMS_ITS | Encounter Summary ---
:1955 Author Organization [facility] [place] [address] Care Team Providers Name Role Phone Grover Herman MD Primary Care Provider Encounter Details Date Type Department Care Team Description 08/04/2020 Telephone [facility]opaedics [place] [facility] Ronny Barahona MD [facility] [place] [address] ORTHOPAEDIC SURGERY [phone] [place], [place] [address] (Wo rk) Social History Tobacco [...] this encounter Miscellaneous Notes Telephone Encounter - Ronny Barahona MD - 08/04/2020 12:10 PM EST discussed with Mr. 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 Larios on 07/26/2020. He reports that he is doing very well since his surgery has been adhering to his postoperative instructions. He has a simple question of whether the Steri-Strips should remain in place. Did advise that he may keep these in place and shower as they may fall off on their own.No other seepage no other issues as relates to the incisional wound as there is no erythema and his pain is well controlled. No fevers chills nausea vomiting no other concerns. All questions were answered by the end of this call. Mr. Castro is in full understanding in agreement with above assessment and plan. Future Appointments Date Time Provider Department Center 08/22/2020 10:[address] [facility] DX ROOM [address] [facility] Rad 08/22/2020 11:00 AM Jack Lewis MD [facility] [place] [facility]C [facility] 09/04/2020 1:00 PM José Luis Rodriguez MD [facility] URO [facility] documented in this encounter Plan of Treatment Upcoming Encounters Date Type Specialty Care Team Description 07/08/2022 Office Visit Radiation Oncology Shelley Kimble, ENVIRONMENTAL ENGINEER [facility] [place], [place] [address] (Wo rk) documented as of this encounter Visit Diagnoses Not on filedocumented in this encounter Care Teams Customer Care Team Coach Relationship Specialty Start Date End Date Grover Herman MD PCP - General Family Medicine 07/19/20 [address] [place] [address] documented as of this encounter
--- OUTSIDE RECORDS SUMMARY | 2022-07-01 13:46 | XMS_ITS | Encounter Summary ---
:1955 Author Organization [facility] [place] [address] Care Team Providers Name Role Phone Grover Herman MD Primary Care Provider Encounter Details Date Type Department Care Team Description 10/05/2020 TH Visit Radiation Oncology Sherman Moore Mali gnant neoplasm of (TeleHealth) at [facility] prostate [address] [place], [place] RADIATION ONCOL OGY [address] [place], [place] [phone] Social History Tobacco Use Types Packs/Day Years [...] documented as of this encounter Progress Notes Sherman Moore MD - 10/05/2020 10:00 AM EST Radiation Oncology Telephone Follow Up Note I called Dominick at his home today and spoke to his as part of a scheduled phone follow-up conversation. We discussed the results of his MRI, which showed a rather large prostate, certainly larger than what has been appreciated on prior physical and imaging studies. The good news however is that there is no clear evidence of extracapsular extension, seminal vesicle invasion or regional lymph node involvement. I discussed the implication that this means he would be both a surgical candidate or radiation candidate. He stated very clearly that he is not interested in surgery. With regard to the radiation options, I discussed either external beam or brachytherapy approaches. My impression is that his prostate is somewhat on the large side to consider brachytherapy at least as it stands now. I discussed that sometimes ADT downstaging can be employed to decrease in size of the prostate, and he is most interested in this approach. I will contact Dr. Flynn to see if he agrees. If not, we will move towards definitive external beam approach alone. We will see him in clinic later today for his first Lupron injection. He is requested a 1 month dose. He will also start Casodex today. We will check LFTs, PSA and testosterone this afternoon as well. Time Attestation: I certify spending at least 40 minutes in providing care to this patient today, 10/05/20 as reflected by the following activities: - review of his medical record in the chart, including review and interpretation of imaging studiesreferenced above - discussion of the above with the patient and his as part of shared medical decision making - documenting the outcome of today's visit as above, ordering medications and laboratory testing asdescribed above documented in this encounter Plan of Treatment Upcoming Encounters Date Type Specialty Care Team Description 07/08/2022 Office Visit Radiation Oncology Shelley Kimble, JOURDAN [facility] [place] [address] (Wo rk) documented as of this encounter Visit Diagnoses Diagnosis Malignant neoplasm of prostate documented in this encounter Care Teams Radiographer Relationship Specialty Start Date End Date Grover Herman MD PCP - General Family Medicine 07/19/20 [address] [place] [address] documented as of this encounter
--- OUTSIDE RECORDS SUMMARY | 2022-07-01 13:46 | XMS_ITS | Encounter Summary ---
:1955 Author Organization [facility] [address] Care Team Providers Name Role Phone Grover Herman MD Primary Care Provider Encounter Details Date Type Department Care Team Description 10/19/2020 Telephone Radiation Oncology a erika [facility] [phone] Social History Tobacco Use Types Packs/Day [...] 07/08/2022 Office Visit Radiation Oncology Shelley Kimble, SALESPERSON SURGICAL APPLIANCES [facility] RADIATION ONCWARNER [place], [place] [address] (Wo rk) documented as of this encounter Visit Diagnoses Not on filedocumented in this encounter Care Teams Concession Stand Attendant Relationship Specialty Start Date End Date Grover Herman MD PCP - General Family Medicine 07/19/20 [address] [place] [address] documented as of this encounter
--- OUTSIDE RECORDS SUMMARY | 2022-07-01 13:46 | XMS_ITS | Encounter Summary ---
:1955 Author Organization [facility] [place] [address] Care Team Providers Name Role Phone Grover Herman MD Primary Care Provider Encounter Details Date Type Department Care Team Description 11/02/2020 [facility] [address] [phone] Social History Tobacco Use [...] this encounter Miscellaneous Notes Telephone Encounter - Dorothea Perkins RN - 11/02/2020 1:39 PM ESTSummary: wi Background: Please see telephone encounter from 10/31/20. Telephone call to patient to inquire how he is feeling with taking casodex with food. He reports that he took casodex later in day after eating and finds that this was helpful. He does still have some dull stomach ache following taking casodex which is improved from 10/31/20 and he ratesat 1.5-2/10. It is not bothersome to him nor does it interfere with sleeping. He denies any nausea, vomiting, diarrhea, constipation or other new issues. Instructed him that it is okay to continue to take later in the day as this has been helpful. Instructed him to call receptionist secretary MD over weekend should abdominal discomfort worsen or should he develop uncontrolled nausea, vomiting, diarrhea, constipation or other significant new symptoms. I confirmed thathe has receptionist secretary contact information and he is agreeable to this plan. Dr. Mcneill, covering for Dr. Moore updated with this note. documented in this encounter Plan of Treatment Upcoming Encounters Date Type Specialty Care Team Description 07/08/2022 Office Visit Radiation Oncology Shelley Kimble, LEAF BLENDER [facility] RADIATION ONCWARNER [place], [place] [address] (Wo rk) documented as of this encounter Visit Diagnoses Not on filedocumented in this encounter Care Teams Claim Professional Relationship Specialty Start Date End Date Grover Herman MD PCP - General Family Medicine 07/19/20 [address] [place] [address] documented as of this encounter
--- OUTSIDE RECORDS SUMMARY | 2022-07-01 13:46 | XMS_ITS | Encounter Summary ---
:1955 Author Organization [facility] [place] [address] Care Team Providers Name Role Phone Grover Herman MD Primary Care Provider Reason for Referral Diagnostic Test (Routine) - Closed Specialty Diagnoses / Procedures Referred By Contact Refer red To Contact Hematology and Oncology Diagnoses Malignant neoplasm of prostate José Luis Rodriguez Devitskiy, Sergey, Procedures MRI Pelvis wwo (Prostate) MD SANDERSON [address] ESPINOZA [place], [place] UROLOGY DEPT [address] [place] [address] Referral ID Status Reason Start Date Expiration Date Visits V isits Requested Authorized [id number] Closed Specialty 09/04/2020 03/05/2022 1 1 Service Requested Consultation (Routine) - Closed Specialty Diagnoses / Procedures Referred By Contact Refer red To Contact Radiation Oncology Diagnoses Malignant neoplasm of prostate José Luis Rodriguez Stj Rad Onc Treatment [address] [place] [address] Saida Louise [place], [place] UROLOGY DEPT [address] [place] [address] Referral ID Status Reason Start Date Expiration Date Visits V isits Requested Authorized [id number] Closed Consult, 09/04/2020 09/04/2021 1 1 Test & Treat Reason for Visit Reason Comments Prostate Cancer Consultation (Routine) - Closed Specialty Diagnoses / Procedures Referred By Contact Refer red To Contact Urology Diagnoses prostate ca Dominick Lujan MD Sverrisson, José Luis Dominguez MD [address] [facility] [address] [place] [address] [place] [address] Fax: Referral ID Status Reason Start Date Expiration Date Visits V isits Requested Authorized [id number] Closed Consult, 07/30/2020 07/30/2021 1 1 Test & Treat Encounter Details Date Type Department Care Team Description 09/04/2020 Office Visit Urology at [facility] José Luis Rodriguez Malignant neoplasm of [facility] [place] [address] UROLOGY DEPT [phone] [place], [place] [address] Social History Tobacco Use Types [...] Sign Reading Time Taken Comments Blood Pressure 159/87 09/04/2020 1:11 PM EST Pulse 71 09/04/2020 1:11 PM EST Temperature - - Respiratory Rate - - Oxygen Saturation - - Inhaled Oxygen Concentration - - Weight - - Height - - Body Mass Index - - documented in this encounter Progress Notes José Luis Rodriguez MD - 09/04/2020 1:00 PM EST UROLOGY NEW PATIENT VISIT CC: Prostate Cancer HPI: 64 yo male referred to me By Dr Dominick Lujan for a 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 He decided to have his PSA checked this summer for the 1st time and was found to be elevated (10.97). Prostate exam was abnormal and he subsequently underwent a TRUS guided prostate biopsy. He denies any bothersome LUTS or hematuria. He has normal erections. No family history of prostate cancer. Biopsy showed: RMB 4+3, 20% involvement, 80% pattern 4 RMM 3+4, 100% involvement, 20% pattern 4 RMA 3+4, 15% involvement, 10% pattern 4 RLB 3+4, 50% involvement, 20% pattern 4 RLM 3+4, 30% involvement, 30% pattern 4 LMA 3+3, 15% LLB 3+4, 15% involvement, 10% pattern 4 Past Medical History: Diagnosis Date ??? Chronic pain right shoulder and bilat hips ??? History of total right hip arthroplasty 06/26/2020 ??? Liver disease hepatitis at age 14 ??? Post-operative nausea and vomiting Past Surgical History: Procedure Laterality Date ??? JOINT REPLACEMENT hipss ??? PRO REVISE TOTAL HIP REPLACEMENT Left 01/12/2020 @TOTAL HIP REVISION ARTHROPLASTY, COMPLETE (WRVU 30.28) performed by Jack Leiws MD at [facility] MAIN OR ??? PRO REVISE TOTAL HIP REPLACEMENT Right 07/26/2020 @TOTAL HIP REVISION ARTHROPLASTY, COMPLETE (WRVU 30.28) performed by Jack Lewis MD at [facility] MAIN OR Social History Socioeconomic History ??? Marital status: Spouse name: None ??? Number of children: None ??? Years of education: None ??? Highest education level: None Occupational History ??? None Social Needs ??? Financial resource strain: None ??? Food insecurity Worry: None Inability: None ??? Transportation needs Medical: None Non-medical: None Tobacco Use ??? Smoking status: Never Smoker ??? Smokeless tobacco: Never Used Substance and Sexual Activity ??? Alcohol use: Yes Alcohol/week: 1.0 standard drinks Types: 1 Standard drinks or equivalent per week Comment: Occasionally, 0-1 drinks a week ??? Drug use: No ??? Sexual activity: None Lifestyle ??? Physical activity Days per week: None Minutes per session: None ??? Stress: None Relationships ??? Social connections Talks on phone: None Gets together: None Attends buddhist service: None Active member of club or organization: None Attends meetings of clubs or organizations: None Relationship status: None ??? Intimate partner violence Fear of current or ex partner: None Emotionally abused: None Physically abused: None Forced sexual activity: None Other Topics Concern ??? None Social History Narrative ??? None Family History Problem Relation Age of Onset ??? Deep Vein Thrombosis Neg Hx ??? Thrombosis Neg Hx ??? 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 SHEEP HERDER: Denies loss of consciousness, denies balance difficulty, denies pins/needle sensations. HEENT: Denies headaches and vision changes. RESP: Denies cough or breathing difficulties. CVS: Denies chest pain and DENNISON. No claudication. GI: Denies nausea/vomiting/diarrhea/constipation. Normal appetite and bowels. : see hpi MUSCULOSKELETAL: Denies joint or muscle aches. Denies back pain. SKIN: Denies rashes. HEME: Denies bleeding tendencies, bruisability. EXAMINATION: Patient Vitals for the past 24 hrs: Pulse BP 09/04/20 1311 71 159/87 GENERAL: Well appearing male in NAD. Healthy appearance. HEENT: Atraumatic, normocephalic. Anicteric sclera. MMM. NECK: Supple with no significant lymphadenopathy. RESPIRATORY: Unlabored respirations with no audible wheezing. CARDIAC: Regular rhythm with no audible MGR. ABDOMEN: Benign without masses. No rebound or guarding. BACK: No CVA tenderness GENITALIA: Scrotum - Color and texture normal; no masses. Testicles and epididymides - No tenderness or masses. Penis - Circumcised with orthotopic meatus; no masses or surface lesions. RECTAL: The anus and perineum are normal. Rectal sphincter tone is normal. Prostate is smooth, ~2cm mid/apical right lateral nodule, approximately 30g NEUROLOGIC: Alert and oriented x 3. EXTREMITIES: Warm and well perfused with no pitting edema. LABS: n/a IMAGING: staging Bone scan and CT abd/pelvis 07/25/2020 negative for metastatic disease. ASSESSMENT/PLAN: We discussed his recent diagnosis of prostate cancer and reviewed treatment options in detail. Surgery, and radiotherapy were presented and discussed. Regarding surgery, we discussed open vs minimally invasive approaches, specifically robotic assisted laparoscopic prostatectomy. We reviewed the rationale for robotic surgery, in particular decrease risk of blood loss and potentially expedited recovery. We reviewed possible complications or side effects of surgery including bleeding, infection, damageto local structures including rectum, ureter, bladder, bowel, nerves and blood vessels, urinary incontinence, erectile dysfunction/impotence, urinary leak, lymph leak, bladder neck contracture, recurrence, need for additional treatment, anesthesia complications, blood clot, hernia, etc. We reviewed the details of perioperative care and expectations postoperatively. He would have pelvic lymphadenectomy. Regarding radiation treatment, we discussed that this is a comparable treatment option to surgery in terms of cure rate, however with a different side effect profile. Details of radiation were reviewed, specifically external beam therapy and brachytherapy. Logistics and possible side effects were reviewed. We discussed the option of a consultation with radiation oncology which he agreed to. I also suggested to schedule an mpMRI (if eligible). He will contact me back in case he wants to proceed with surgery, but is currently leaning toward radiation. documented in this encounter Plan of Treatment Upcoming Encounters Date Type Specialty Care Team Description 07/08/2022 Office Visit Radiation Oncology Shelley Kimble, VICE PRESIDENT OF CONSULTING SERVICES [facility] RADIATION ONCWARNER [place], [place] [address] (Wo rk) Scheduled Referrals Name Type Priority Associated Diagnoses Order S chedule Referral to Outpatient Referral Routine Malignant neoplasm Or dered: Radiation Oncology of prostate 0 documented as of this encounter Results MRI Pelvis wwo (Prostate) (09/27/2020 3:27 PM EST) Anatomical Region Laterality Modality Pelvis Magnetic Resonance Specimen (Source) Anatomical Location Collection Method / Collectio n Time Received Time / Laterality Volume Impressions 09/28/2020 11:31 AM EST Lesion 1 PZ: PI-RADS 5. Clinically signi ficant cancer is highly likely to be present. T2 location: axial series 9, im age 21; sagittal ??series 5, image 24. PI-RADS v2.1 Assessment Categories PI-RADS 1 -- Very low (clinically signif icant cancer is highly unlikely to be present) PI-RADS 2 -- Low (clinically significant cancer is unlikely to be present) PI-RADS 3 -- Intermediate (the presence of clinically significant cancer is equivocal) PI-RADS 4 -- High (clinically significan t cancer is likely to be present) PI-RADS 5 -- Very high (clinically signi ficant cancer is highly likely to be present) I have personally reviewed the image(s) and the resident's interpretation and agree with the findings, Oren foster MD at 09/28/2020 11:31 AM Thank you for letting us participate in the care of this patient. For questions regarding this report, please contact e number below. ? 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 11 MOST RECENT PSA LEVEL:11 TECHNIQUE: Multiparametric MRI of the pr ostate prior to and following IV administration of cc of Dotarem contrast . ?? QUALITY: Limited by susceptability artif act from bilateral hip prosthesis, compromizing the diffusion sequence. COMPARISON: Bilateral hip MRI dated 07/15 FINDINGS: Prostate dimensions: 5.1 x 4.4 x 3.5cm. Estimated prostate volume: 78.5cc (X x Y x Z x 0.52) PSA density: 0.14 (PSA/prostate volume > 0.15 susp, 0.25 highly susp) Peripheral zone: Lesion 1. right PZ mid gland extending t o base Size: 19 mm T2: Heterogeneous moderate hypointensity PI-RADs: 3. DWI: ??Focal markedly hypointense on ADC and markedly hyperintense on high b-value DWI. PI-RADs: 5. DCE-MRI: (-) No early arterial enhanceme nt.. ? Combined PI-RADs: 5. Transition zone: No focal lesions T2: Typical encapsulated and homogenous circumscribed nodules with intervening areas of homogenous mildly hypointense s ignal PI-RADs: 2. DWI: ??No abnormality on ADC and high b- value DWI. PI-RADs: 1. DCE-MRI: ??(-) No early arterial enhance ment.. ? Combined PI-RADs: 2. Extraprostatic disease: Seminal vesicle involvement:No Lymphadenopathy:No Sphincter involvement:No Bladder involvement:No Osseous metastases: No . MRI-derived Extraprostatic extension ris k: Grade 1: 24.3% (Curvilinear contact length) Other findings: Right external iliac nod e measuring 8 mm short axis, morphologically normal-appearing and sta ble when compared with prior MRI dated 07/24/2017. Bilateral hip prosthesis. Procedure Note Oren Scanlon MD - 09/28/2020For matting of this note might be different from the original. 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 11 MOST RECENT PSA LEVEL:11 TECHNIQUE: Multiparametric MRI of the pr ostate prior to and following IV administration of cc of Dotarem contrast . QUALITY: Limited by susceptability artif act from bilateral hip prosthesis, compromizing the diffusion sequence. COMPARISON: Bilateral hip MRI dated 07/15 FINDINGS: Prostate dimensions: 5.1 x 4.4 x 3.5cm. Estimated prostate volume: 78.5cc (X x Y x Z x 0.52) PSA density: 0.14 (PSA/prostate volume > 0.15 susp, 0.25 highly susp) Peripheral zone: Lesion 1. right PZ mid gland extending t o base Size: 19 mm T2: Heterogeneous moderate hypointensity PI-RADs: 3. DWI: Focal markedly hypointense on ADC a nd markedly hyperintense on high b-value DWI. PI-RADs: 5. DCE-MRI: (-) No early arterial enhanceme nt.. Combined PI-RADs: 5. Transition zone: No focal lesions T2: Typical encapsulated and homogenous circumscribed nodules with intervening areas of homogenous mildly hypointense s ignal PI-RADs: 2. DWI: No abnormality on ADC and high b-va lue DWI. PI-RADs: 1. DCE-MRI: (-) No early arterial enhanceme nt.. Combined PI-RADs: 2. Extraprostatic disease: Seminal vesicle involvement:No Lymphadenopathy:No Sphincter involvement:No Bladder involvement:No Osseous metastases: No . MRI-derived Extraprostatic extension ris k: Grade 1: 24.3% (Curvilinear contact length) Other findings: Right external iliac nod e measuring 8 mm short axis, morphologically normal-appearing and sta ble when compared with prior MRI dated 07/24/2017. Bilateral hip prosthesis. IMPRESSION Lesion 1 PZ: PI-RADS 5. Clinically signi ficant cancer is highly likely to be present. T2 location: axial series 9, im age 21; sagittal series 5, image 24. PI-RADS v2.1 Assessment Categories PI-RADS 1 -- Very low (clinically signif icant cancer is highly unlikely to be present) PI-RADS 2 -- Low (clinically significant cancer is unlikely to be present) PI-RADS 3 -- Intermediate (the presence of clinically significant cancer is equivocal) PI-RADS 4 -- High (clinically significan t cancer is likely to be present) PI-RADS 5 -- Very high (clinically signi ficant cancer is highly likely to be present) I have personally reviewed the image(s) and the resident's interpretation and agree with the findings, Oren foster MD at 09/28/2020 11:31 AM Thank you for letting us participate in the care of this patient. For questions regarding this report, please contact th e number below. José Luis Rodriguez MD IMG MRI ORDERABLES documented in this encounter Visit Diagnoses Diagnosis Malignant neoplasm of prostate Malignant neoplasm of prostate documented in this encounter Care Teams Erp Manager Relationship Specialty Start Date End Date Grover Herman MD PCP - General Family Medicine 07/19/20 [address] [place] [address] documented as of this encounter
--- OUTSIDE RECORDS SUMMARY | 2022-07-01 13:46 | XMS_ITS | Encounter Summary ---
:1955 Author Organization [facility] [place] [address] Care Team Providers Name Role Phone Grover Herman MD Primary Care Provider Encounter Details Date Type Department Care Team Description 09/19/2020 Hospital Encounter XRay at [facility] Jack Lewis, Failure of right [address] [place] [address] Dr SANDERSON total hip [facility] arthropla sty, [address] DR initial encounter [phone] [facility] [place], [place] [address] Social History Tobacco Use Types [...] pain ( sometimes takes only 1/2 tab)). oxyCODONE (Roxicodone) Take 1-2 tablets by 40 tablet 0 07/1509/28/2020 5 mg Tablet mouth every 4 hours as needed for Pain for up to 40 doses. documented as of this encounter Plan of Treatment Upcoming Encounters Date Type Specialty Care Team Description 07/08/2022 Office Visit Radiation Oncology Lamin Shelley Terry, CRYPTOLOGIC SUPERVISOR [facility] RADIATION ONCWARNER [facility], [place] [address] (Wo rk) documented as of this encounter Procedures Procedure Name Priority Date/Time Associated Diagnosis Comme nts XR HIP 1 VIEW RIGHT Routine 09/19/2020 8:30 AM Failure of righ t Results for this EST total hip procedure are i n arthroplasty, the results initial encounter section. XR PELVIS Routine 09/19/2020 8:30 AM Failure of right Resul ts for this EST total hip procedure are i n arthroplasty, the results initial encounter section. documented in this encounter Results XR Hip 1 view [...] For questions regarding this report, please contact weston number below. ? Narrative 09/19/2020 10:06 AM [...] below. Jack Lewis MD IMG DX ORDERABLES XR [...] encounter documented in this encounter Care Teams Road Mixer Operator Relationship Specialty Start Date End Date Grover Herman MD PCP - General Family Medicine 07/19/20 [address] [place] [address] documented as of this encounter
--- OUTSIDE RECORDS SUMMARY | 2022-07-01 13:46 | XMS_ITS | Encounter Summary ---
:1955 Author Organization [facility] [place] [address] Care Team Providers Name Role Phone Grover Herman MD Primary Care Provider Encounter Details Date Type Department Care Team Description 02/13/2021 Office Visit Radiation Oncology at [facility] Moore M alignant neoplasm of [facility] [address] [place], [place] RADIATION ONCOL OGY [address] [place], [place] [phone] (Wo rk) Social History Tobacco Use Types [...] encounter Progress Notes Sherman Moore MD - 02/13/2021 4:00 PM EDT Radiation Oncology Follow Up Note I met with Dominick today to touch base and be certain he was tolerating ADT as expected, and was aware of the treatment plan. He had a few questions but overall is satisfied with his care to date, and wasappreciate of my visit with him today. He looks forward to his implant in April with a mixture of anxiety and excitement. We confirmed he preference for ongoing monthly Lupron injections. He would also prefer to not take Casodex. I will arrange for continued monthly injections for the remainder of the calendar year, per the plan recommended by Dr. Flynn. Next injection is currently scheduled for 03/13/21. I anticipate seeing Dominick again post implant, for weekly management during EBRT. He expressed understanding and appreciation for today's visit. Time Attestation: I certify spending at least 20 minutes in providing care to this patient today, 02/14/21 as reflected by the following activities: - discussion of the above with the patient as part of shared medical decision making - documenting the outcome of today's visit as above documented in this encounter Plan of Treatment Upcoming Encounters Date Type Specialty Care Team Description 07/08/2022 Office Visit Radiation Oncology Shelley Kimble, SENIOR CASE MANAGER [facility] RADIATION ONCWARNER [place], [place] [address] (Wo rk) documented as of this encounter Visit Diagnoses Diagnosis Malignant neoplasm of prostate documented in this encounter Care Teams Retail Sales Consultant Relationship Specialty Start Date End Date Grover Herman MD PCP - General Family Medicine 07/19/20 [address] [place] [address] documented as of this encounter
--- OUTSIDE RECORDS SUMMARY | 2022-07-01 13:46 | XMS_ITS | Encounter Summary ---
:1955 Author Organization [facility] [place] [address] Care Team Providers Name Role Phone Grover Herman MD Primary Care Provider Encounter Details Date Type Department Care Team Description 11/19/2020 [facility] [address] [phone] Social History Tobacco Use [...] Telephone Encounter - Yissel Ashby RN - 11/19/2020 9:41 AM EST Radiation Oncology Nurse Telephone Note [facility] [place], [place] ----- Message from Sherman Moore MD sent at 11/16/2020 3:21 PM EST ----- Regarding: RE: look for LFTS at [facility] Sure, thank you ----- Message ----- From: Yissel Ashby RN Sent: 11/16/2020 3:18 PM EST To: Yissel Ashby RN, Sherman Moore MD Subject: RE: look for LFTS at [facility] His LFTs from today are in the media section and WNL. Shall I call him to let him know is LFTs are good? Yissel ----- 11/19/20 09:42 Telephone call to pt. It went to voice mail. Left brief message that recent lab work was normal. Also left my name and contact ifo if he has any questions. 4:23 call placed to home and cell phone . No answer at either. documented in this encounter Plan of Treatment Upcoming Encounters Date Type Specialty Care Team Description 07/08/2022 Office Visit Radiation Oncology Shelley Kimble, PROCESS ENVIRONMENTAL TECHNICIAN [facility] [place] [address] (Wo rk) documented as of this encounter Visit Diagnoses Not on filedocumented in this encounter Care Teams Transplant Immunologist Relationship Specialty Start Date End Date Grover Herman MD PCP - General Family Medicine 07/19/20 [address] [place] [address] documented as of this encounter
--- OUTSIDE RECORDS SUMMARY | 2022-07-01 13:46 | XMS_ITS | Encounter Summary ---
:1955 Author Organization [place] [address] Care Team Providers Name Role Phone Grover Herman MD Primary Care Provider Encounter Details Date Type Department Care Team Description 11/22/2020 [facility] [address] [phone] Social History Tobacco Use [...] Telephone Encounter - Yissel Ashby RN - 11/22/2020 4:33 PM EST Radiation Oncology Nurse Telephone Note [facility]- [place], [place] Patient calls stating he has had ongoing abd pain. He confirms stopping the casodex ( as directed byDr Moore ) 2 weeks ago ro this pain. Initially he thought that the abd pain was improving, but it has climbed back up again despite being off the casodex. He saw his PCP , Dr Grover Herman, last Thursday and he pressed in the RUQ area and caused some discomfort. PCP thinks this might be related to gallbladder.He denies n/v, diarrhea , constipation, fever, dysuria and hematuria. He also notes that he has pain about 30 mins after eating that last for a couple hours and then begins to let up until he eats again. Dr Moore informed of this. He states this not r/t the Lupron and that he should continue seeing PCP for this with repeat lab work ( LFTs and Ulta sound) I called patient back with this information. He said that he has since called his PCP ( after speaking with me) and Dr Herman is arranging for US and lab work. Plan: He will be due for next Lupron around 12/05 (he got the 1 month dose on 11/07/20) documented in this encounter Plan of Treatment Upcoming Encounters Date Type Specialty Care Team Description 07/08/2022 Office Visit Radiation Oncology Shelley Kimble, [facility] RADIATION ONCWARNER [place], [place] [address] (Wo rk) documented as of this encounter Visit Diagnoses Not on filedocumented in this encounter Care Teams Fisheries Inspector Relationship Specialty Start Date End Date Grover Herman MD PCP - General Family Medicine 07/19/20 [address] [place] [address] documented as of this encounter
--- OUTSIDE RECORDS SUMMARY | 2022-07-01 13:46 | XMS_ITS | Encounter Summary ---
:1955 Author Organization [facility] [address] Care Team Providers Name Role Phone Grover Herman MD Primary Care Provider Encounter Details Date Type Department Care Team Description 11/07/2020 Orders Only Radiation Oncology at [facility] Sherman MD [address] RADIATION ONCOLOGY [facility] [id number] [phone] Social History Tobacco Use Types Packs/Day Years [...] Office Visit Radiation Oncology Shelley Kimble, [facility] RADIATION ONCWARNER [place], [place] [address] (Wo rk) documented as of this encounter Visit Diagnoses Not on filedocumented in this encounter Care Teams Trademark Affixer Relationship Specialty Start Date End Date Grover Herman MD PCP - General Family Medicine 07/19/20 [address] [place] [address] documented as of this encounter
--- OUTSIDE RECORDS SUMMARY | 2022-07-01 13:46 | XMS_ITS | Encounter Summary ---
:1955 Author Organization [facility] [place] [address] Care Team Providers Name Role Phone Grover Herman MD Primary Care Provider Reason for Visit Reason Comments Injections Im lupron High Dollar Medication (Routine) - Specialty Diagnoses / Procedures Referred By Contact Refer red To Contact Hematology and Oncology Diagnoses Malignant neoplasm of prostate Sherman Davis MD [facility] Infusion Procedures TC LEUPROLIDE ACETATE 7.5MG, FOR DEPOST SUSPENSION (LUPRON DEPOT) INFUSION ROOM [address] [place] [address] [place] [id number] Referral ID Status Reason Start Date Expiration Date Visits V isits Requested Authorized [id number] 10/05/2020 09/17/2021 99 99 Encounter Details Date Type Department Care Team Description 10/05/2020 [facility] prostate [address] [place] [phone] Social History Tobacco Use Types [...] documented as of this encounter Progress Notes Carlyn Kinney RN - 10/05/2020 11:30 AM EST Infusion Note Diagnosis:Prostate Cancer Treatment: Initial Lupron Injection Lupron 7.5 mg injected in left buttocks Patient instructed on side effects of Lupron. Education material given. Patient states understandingof teaching, Patient aware to call clinic with any questions or concerns. Dr. Moore visited patient while in infusion. Plan: Return to clinic as scheduled. documented in this encounter Plan of Treatment Upcoming Encounters Date Type Specialty Care Team Description 07/08/2022 Office Visit Radiation Oncology Shelley Kimble, AD OPERATIONS COORDINATOR [facility] RADIATION ONCWARNER [place], [place] [address] (Wo rk) documented as of this encounter Visit Diagnoses Diagnosis Malignant neoplasm of prostate documented in this encounter Administered Medications Inactive Administered Medications - up to 3 most recent administrations Medication Order MAR Action Action Date Dose Rate Site leuprolide (Lupron Depot) Given 10/05/2020 12:22 PM 7.5 mg Left Gluteal injection 7.5 mg EST 7.5 mg, Intramuscular, ONCE, 1 dose, On Thu10/05/20 at 1230, Routine, This agent is restricted to outpatient use. Is this drug being given as an outpatient? Yes documented in this encounter Care Teams Trust Vault Custodian Relationship Specialty Start Date End Date Grover Herman MD PCP - General Family Medicine 07/19/20 [address] [place] [address] documented as of this encounter
--- OUTSIDE RECORDS SUMMARY | 2022-07-01 13:46 | XMS_ITS | Encounter Summary ---
:1955 Author Organization [facility] [place] [address] Care Team Providers Name Role Phone Grover Herman MD Primary Care Provider Reason for Referral Physical Therapy (Routine) - Specialty Diagnoses / Procedures Referred By Contact Refer red To Contact Diagnoses Failure of right total hip arthroplasty, initial encounter Jack Lewis MD [facility] [place] [address] Referral ID Status Reason Start Date Expiration Date Visits V isits Requested Authorized [id number] Evaluate and 09/19/2020 03/18/2021 12 12 Treat Reason for Visit Reason Comments Follow-up Right REGGIE Revision DOS 11 .12.20 Encounter Details Date Type Department Care Team Description 09/19/2020 Office Visit Orthopaedics at [facility] Jack Lewis, Failure of right [facility] total hip Drive [facility] arthroplasty, [place] [address] [address] initial encounter [phone] ORTHOPAEDIC SURG [place], [place] [address] (Wo rk) Social History Tobacco [...] Sign Reading Time Taken Comments Blood Pressure 183/85 09/19/2020 8:39 AM EST Pulse 66 09/19/2020 8:39 AM EST Temperature - - Respiratory Rate - - Oxygen Saturation - - Inhaled Oxygen Concentration - - Weight 97.5 kg (215 lb) 09/19/2020 8:39 AM EST reported Height 180.3 cm (5' 10.98) 09/19/2020 8:39 AM EST repo rted Body Mass Index 30 09/19/2020 8:39 AM EST documented in this encounter Progress Notes Stanley Martinez MD - 09/19/2020 9:30 AM EST Arthroplasty/Orthopaedic History: 07/26/2020 ([place]) Right REGGIE aseptic loosening,?? 1. ??Aseptic Loosening??Right??Femoral stem 2. 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 ??Extensive proximal femoral osteolysis ?? Movement of extended troch osteotomy 08/14/2020 HPI: Dominick Castro is a very pleasant 64 y.o. year-old male and is now 2 months post right total hip revision. The patient has been doing well, though with continued R thigh pain. Pain is controlled without analgesics. He denies falls or other trauma. No fevers, chills, nausea, vomiting, or symptoms of infection. Dominick has been ambulating with crutches and working with PT, maintaining his TDWB precautions. He is not taking narcotic pain medicine. ROS: Denies: fever, chills, night sweats, nausea, or vomiting BP 183/85 (BP Location (NBP): Right arm, Patient Position: Sitting, BP Cuff Sizes: Adult (25-34 cm)) Pulse 66 Ht 180.3 cm (5' 10.98) Comment: reported Wt 97.5 kg (215 lb) Comment: reported BMI 30.00 kg/m?? Physical Exam: Well-appearing male in no acute distress. Alert and Oriented x 3 and answers all questions appropriately. X-RAYS: Multiple radiographic views were obtained at my request and reviewed with the patient. X-rays show persistent fracture R proximal femur at previous ETO site, interval compression vs. No change at fracture site. Cerclage wires appear to have appropriate circumferential fit. Questionnaire Responses: [facility] Surgical Postop Visit 02/08/2020 PROMIS-10 General Health [...] Choose Same Treatment Again Definitely yes Orthopeadics [facility] Response 02/08/2020 HOOS JR Scores 70.43 Spine [facility] Response 02/08/2020 HOOS JR Scores 70.43 ASSESSMENT/PLAN: Mr. Castro is a 64 y.o. year old male status post right total hip revision. Doing well postoperatively. Plan to advance weight-bearing to WBAT, advised to use single crutch or cane incontralateral arm for 4 weeks, PT script renewal today with continued abduction precautions. We willsee him back in 3 months for repeat examination. XR AP pelvis, R hip. We also discussed possible revision R hip if lateral thigh pain or limp persists, to be evaluated at next f/u visit. We discussed the appropriate precautions surrounding dental prophylaxis; according to the AAOS Appropriate Use Criteria we do not recommend antibiotic use prior to dental procedures for Dominick. If Dominick has any changes in health status we recommend he contact our office prior to dental procedures for updated recommendations All questions were answered. Signed: Stanley Martinez MD 09/19/2020 Jack Lewis MD - 09/19/2020 9:30 AM EST I performed a history and physical examination of the patient and discussed the management plan withStanley Quesada MD. I also discussed the different treatment options, as well as the risks and benefits of each with the patient and questions were answered. I reviewed the note and agree with the documented findings and plan of care. ?? Dominick is doing well with no lateral hip pain. He does endorse some persistent anterior thigh pain. Has been following his weightbearing and positional precautions. Plan to advance to WBAT with UE support at all times (Crutch or cane) for 4 weeks, then PRN. RTC in 3 months with new XR or sooner if problems. Jack Lewis MD 09/20/2020 documented in this encounter Plan of Treatment Upcoming Encounters Date Type Specialty Care Team Description 07/08/2022 Office Visit Radiation Oncology Shelley Kimble, CLINICAL PROJECT MANAGER [facility] RADIATION ONCWARNER [place], [place] [address] (Wo rk) Scheduled Referrals Name Type Priority Associated Diagnoses Order S chedule Referral to Outpatient Referral Routine Failure of right Orde red: Physical Therapy total hip 09/19/2020 arthroplasty, initial encounter documented as of this [...] who have questions please contact the health family day care worker that requested your imaging first. ? Narrative [...] ho have questions please contact the health family day care worker that requested your imaging first. 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
--- OUTSIDE RECORDS SUMMARY | 2022-07-01 13:46 | XMS_ITS | Encounter Summary ---
:1955 Author Organization [facility] [place] [address] Care Team Providers Name Role Phone Grover Herman MD Primary Care Provider Reason for Referral Diagnostic Test (Routine) - Closed Specialty Diagnoses / Procedures Referred By Contact Refer red To Contact Radiology Diagnoses Malignant neoplasm of prostate Og Flynn MD [facility] Rad Mri Procedures MRI Pelvis Soft Tissue (GI SDC TEACHER) wwo Contrast MRI Pelvis wo (Prostate) [facility] [place] [address] [place] [address] Referral ID Status Reason Start Date Expiration Date Visits V isits Requested Authorized [id number] Closed Specialty 10/13/2020 04/12/2022 1 1 Service Requested Reason for Visit Diagnostic Test (Routine) - Closed Specialty Diagnoses / Procedures Referred By Contact Refer red To Contact Radiology Diagnoses Malignant neoplasm of prostate Og Flynn MD [facility] Rad Mri Procedures MRI Pelvis Soft Tissue (GI SDC TEACHER) wwo Contrast MRI Pelvis wo (Prostate) [facility] [place] [address] [place] [address] Referral ID Status Reason Start Date Expiration Date Visits V isits Requested Authorized [id number] Closed Specialty 10/13/2020 04/12/2022 1 1 Service Requested Encounter Details Date Type Department Care Team Description 12/27/2020 Hospital Encounter MRI at [facility] Og Flynn Malignant neoplasm [facility] MD Binh of prostate [facility] [id number] RADIATION [phone] [place] [address] Social History Tobacco Use Types Packs/Day Years [...] Office Visit Radiation Oncology Shelley Kimble APRN [facility] RADIATION ONCWARNER [place], [place] [address] (Wo rk) documented as of this encounter Procedures Procedure Name Priority Date/Time Associated Diagnosis Comme nts MRI PELVIS SOFT Routine 12/27/2020 2:11 PM Malignant neoplasm Results for this TISSUE (GI SDC TEACHER) EDT of prostate procedure are in WWO CONTRAST the results section. documented in this encounter Results MRI Pelvis Soft Tissue (GI SDC TEACHER) wwo Contrast (12/27/2020 2:11 PM EDT) Anatomical Region Laterality Modality Pelvis Magnetic Resonance Specimen (Source) Anatomical Location Collection Method / Collectio n Time Received Time / Laterality Volume Impressions 12/28/2020 3:57 PM EDT Are calculated prostate gland volume of 38 cc, not significantly changed from the calculated volume from the previous MRI 41 cc. Lesion 1 PZ: PI-RADS 5. Clinically signi ficant cancer is highly likely to be present. T2 location: axial series 9, im age 23; sagittal ??series 8, image 22. PI-RADS v2.1 Assessment Categories PI-RADS 1 -- [...] cancer is highly likely to be present) References: Leonora S1, Rohan JH1, Dao S1, Smi th C1, Arce J1, Czarniecki M1, Gold S1, Caruso G1, Raylauro K1, Edmundo MJ1, Fuad BJ1, Rachael PA1, Fely PL1, Myra B1. ??A Grading System for the Assessment of Ris k of Extraprostatic Extension of Prostate Cancer at Multiparametric MRI. Radiology. 2019 Mar;290(3):709-719. doi: 10.1148/radiol.4511096013. Epub 2018Oct 05. I have personally reviewed the image(s) and the resident's interpretation and agree with the findings, Lev vargas MD at 12/28/2020 3:57 PM Thank you for letting us participate in the care of this patient. ??If you are a health care provider and have any questi ons regarding this report, please contact the number below. ??For patients who have questions please contact the health coronary care unit nurse that requested your imaging first. ? Narrative 12/28/2020 3:57 PM EDT EXAMINATION: MRI PELVIS SOFT TISSUE (GI SDC TEACHER) WWO CONTRAST CLINICAL HISTORY: Prostate cancer. ??Ple ase assess gland volume, s/p hormone therapy. HAS PATIENT HAD PREVIOUS BIOPSY?:Yes, holder mmer 2019, MOST RECENT PSA LEVEL:1.23, previously 1 1 LETICIA SCORE: 4+3 TECHNIQUE: Multiparametric MRI of the pr ostate prior to and following IV administration of 20 cc of Dotarem contr ast. ?? QUALITY: Limited by susceptibility artif act, compromising the diffusion sequence. COMPARISON: Prostate MRI dated 09/27/2020 FINDINGS: Prostate dimensions: 4.8 x 3.5 x 4.3cm. Estimated prostate volume: 38cc (X x Y x Z x 0.52) PSA density: 0.03 Peripheral zone: Lesion 1. Right PZ, mid gland extending to base. Less conspicuous when compared with prior exam possibly related to inte rval treatment. T2: Heterogeneous hypointense signal int ensity. PI-RADs: 3. DWI: ??Focal markedly hypointense on ADC and markedly hyperintense on high b-value DWI. PI-RADs: 5. DCE-MRI: (-) No early arterial enhanceme nt. ?? Combined PI-RADs: 5. Transition zone: No focal lesions T2: Typical encapsulated and homogenous circumscribed nodules with intervening areas of homogenous mildly hypointense s ignal. PI-RADs: 2. DWI: ??No abnormality on ADC and high b- value DWI. PI-RADs: 1. DCE-MRI: ??(-) No early arterial enhance ment. Combined PI-RADs: 2. Extraprostatic disease: Seminal vesicle involvement:No Lymphadenopathy:No Sphincter involvement:No Bladder involvement:No Osseous metastases: No MRI-derived Extraprostatic extension ris k: Grade 1: 24.3% (Curvilinear contact length) Other findings: Stable appearance of bor derline enlarged right external iliac nodes measuring up to 10 mm short axis. Procedure Note Lev Mauricio MD - 12/28/2020Format ting of this note might be different from the original. EXAMINATION: MRI PELVIS SOFT TISSUE (GI SDC TEACHER) WWO CONTRAST CLINICAL HISTORY: Prostate cancer. Pleas e assess gland volume, s/p hormone therapy. HAS PATIENT HAD PREVIOUS BIOPSY?:Yes, holder mmer 2019, MOST RECENT PSA LEVEL:1.23, previously 1 1 LETICIA SCORE: 4+3 TECHNIQUE: Multiparametric MRI of the pr ostate prior to and following IV administration of 20 cc of Dotarem contr ast. QUALITY: Limited by susceptibility artif act, compromising the diffusion sequence. COMPARISON: Prostate MRI dated 09/27/2020 FINDINGS: Prostate dimensions: 4.8 x 3.5 x 4.3cm. Estimated prostate volume: 38cc (X x Y x Z x 0.52) PSA density: 0.03 Peripheral zone: Lesion 1. Right PZ, mid gland extending to base. Less conspicuous when compared with prior exam possibly related to inte rval treatment. T2: Heterogeneous hypointense signal int ensity. PI-RADs: 3. DWI: Focal markedly hypointense on ADC a nd markedly hyperintense on high b-value DWI. PI-RADs: 5. DCE-MRI: (-) No early arterial enhanceme nt. Combined PI-RADs: 5. Transition zone: No focal lesions T2: Typical encapsulated and homogenous circumscribed nodules with intervening areas of homogenous mildly hypointense s ignal. PI-RADs: 2. DWI: No abnormality on ADC and high b-va lue DWI. PI-RADs: 1. DCE-MRI: (-) No early arterial enhanceme nt. Combined PI-RADs: 2. Extraprostatic disease: Seminal vesicle involvement:No Lymphadenopathy:No Sphincter involvement:No Bladder involvement:No Osseous metastases: No MRI-derived Extraprostatic extension ris k: Grade 1: 24.3% (Curvilinear contact length) Other findings: Stable appearance of bor derline enlarged right external iliac nodes measuring up to 10 mm short axis. IMPRESSION Are calculated prostate gland volume of 38 cc, not significantly changed from the calculated volume from the previous MRI 41 cc. Lesion 1 PZ: PI-RADS 5. Clinically signi ficant cancer is highly likely to be present. T2 location: axial series 9, im age 22; sagittal series 8, image 22. PI-RADS v2.1 Assessment Categories PI-RADS 1 -- [...] cancer is highly likely to be present) References: Mehraligertrude S1, Rohan JH1, Dao S1, Smi th C1, Arce J1, Czarniecki M1, Gold S1, Caruso G1, Rayn K1, Wyatt MJ1, Wood BJ1, Cano PA1, Chosandy PL1, Turkenrique B1. A Grading System for the Assessment of Ris k of Extraprostatic Extension of Prostate Cancer at Multiparametric MRI. Radiology. 2019 Nov;290(3):709-719. doi: 10.1148/radiol.9650763055. Epub 2018Oct 05. I have personally reviewed the image(s) and the resident's interpretation and agree with the findings, Lev vargas MD at 12/28/2020 3:57 PM Thank you for letting us participate in the care of this patient. If you are a health care provider and have any questi ons regarding this report, please contact the number below. For patients w ho have questions please contact the health coronary care unit nurse that requested your imaging first. Electronically signed by: Lev mabry MD, [facility] ([phone]), at 12/28/2020 3:57 PM Og Flynn MD IM MRI ORDERABLES documented in this encounter Visit Diagnoses Diagnosis Malignant neoplasm of prostate documented in this encounter Administered Medications Inactive Administered Medications - up to 3 most recent administrations Medication Order MAR Action Action Date Dose Rate Site gadoterate meglumine (Dotarem) Given 12/27/2020 2:16 PM EDT 20 m Ls (0.5 mMol/mL) injection solution 0-100 mL 0-100 mL, Intravenous, ONCE PRN, 1 dose, Starting on Charlette 12/27/20 at 1415, Until Charlette 12/27/20 at 1416, Per Protocol, Radiology Contrast, Routine documented in this encounter Care Teams Hogshead Mat Inspector Relationship Specialty Start Date End Date Grover Herman MD PCP - General Family Medicine 07/19/20 [address] [place] [address] documented as of this encounter
--- OUTSIDE RECORDS SUMMARY | 2022-07-01 13:46 | XMS_ITS | Encounter Summary ---
:1955 Author Organization [facility] [place] [address] Care Team Providers Name Role Phone Grover Herman MD Primary Care Provider Encounter Details Date Type Department Care Team Description 11/07/2020 Notes Only [facility] [address] [phone] Social History Tobacco Use [...] documented as of this encounter Progress Notes Yissel Ashby RN - 11/07/2020 3:25 PM EST Radiation Oncology Nurse Note [place], [place] >>>>>>See recent telephone notes regarding dull stomach discomfort. Pt was seen in clinic today while waiting for his Lupron injection. He confirms getting my voice mail message instructing him to stop the bicalutamide for 5 days. He did not take it last night when he normally takes it with dinner and he already feels an improvement today. He still feels a little discomfort pressure feeling where he is pointing to his mid upper abd. He said that he was also getting a back ache from it too which is better today. He had his LFTs drawn today and results still pending. He was reminded to not resume the bicalutamide until OK'd with Dr Moore. Patient verbalized understanding of these instructions. After seeing pt, we got the LFTs results. All WNL except the Alk Phos was 124 ( was 107 on 10/05/20) Dr Moore was informed and he recommended that he stay off the bicalutamide and recheck LFTs in 1 week. Intervention: I called patient with this updated information. Patient verbalized understanding of stopping the bicalutamide. Our secretary specialist will schedule his lab appointment for next Tuesday 11/14 at [facility]. In the mean time, he was instructed to keep us informed of any changes or concerns. Patient verbalized understanding of these instructions. Plan: nursing will reconnect with him with after Dr Moore has reviewed the 11/14 lab results. documented in this encounter Plan of Treatment Upcoming Encounters Date Type Specialty Care Team Description 07/08/2022 Office Visit Radiation Oncology Shelley Kimble APRN [facility] RADIATION ONCWANRER [place], [place] [address] (Wo rk) documented as of this encounter Visit Diagnoses Not on filedocumented in this encounter Care Teams Cath Lab Technologist Relationship Specialty Start Date End Date Grover Herman MD PCP - General Family Medicine 07/19/20 [address] [place] [address] documented as of this encounter
--- OUTSIDE RECORDS SUMMARY | 2022-07-01 13:46 | XMS_ITS | Encounter Summary ---
:1955 Author Organization [facility] [place] [address] Care Team Providers Name Role Phone Grover Herman MD Primary Care Provider Reason for Referral Diagnostic Test (Routine) - Closed Specialty Diagnoses / Procedures Referred By Contact Refer red To Contact Radiology Diagnoses Malignant neoplasm of prostate Og Flynn MD [facility] Rad Mri Procedures MRI Pelvis Soft Tissue (GI SCRIBING MACHINE OPERATOR) wwo Contrast MRI Pelvis wo (Prostate) [facility] [place] [address] [place] [address] Referral ID Status Reason Start Date Expiration Date Visits V isits Requested Authorized [id number] Closed Specialty 10/13/2020 04/12/2022 1 1 Service Requested Encounter Details Date Type Department Care Team Description 10/13/2020 Orders Only Radiation Oncology at Og Flynn M alignant neoplasm of [facility] prostate [facility] [place] [address] RADIATION ONCOLOGY [phone] [place], [place] [address] Social History Tobacco Use Types [...] 07/08/2022 Office Visit Radiation Oncology Shelley Kimble, CRIME SCENE EVIDENCE TECHNICIAN [facility] [place] [address] (Wo rk) documented as of this encounter Results MRI Pelvis Soft Tissue (GI SCRIBING MACHINE OPERATOR) wwo Contrast (12/27/2020 2:11 PM EDT) Anatomical [...] K1, Wyatt MJ1, Wood BJ1, Cano PA1, Choyke PL1, Turkenrique B1. ??A Grading System for the Assessment of Ris k of Extraprostatic Extension of Prostate Cancer at Multiparametric MRI. Radiology. 2019 Nov;290(3):709713. doi: 10.1148/radiol.8697162364. Epub 2018Oct 05. I have personally reviewed [...] who have questions please contact the health healthcare insurance sales agent that requested your imaging first. ? Electronically signed by: Lev Mauricio MD, [facility] ([phone]), at 12/28/2020 3:57 PM Narrative 12/28/2020 3:57 PM EDT EXAMINATION: MRI PELVIS SOFT TISSUE (GI SCRIBING MACHINE OPERATOR) WWO CONTRAST CLINICAL HISTORY: Prostate cancer. ??Ple [...] original. EXAMINATION: MRI PELVIS SOFT TISSUE (GI SCRIBING MACHINE OPERATOR) WWO CONTRAST CLINICAL HISTORY: Prostate cancer. Pleas [...] M1, Gold S1, Caruso G1, Rayn K1, Edmundo MJ1, Fuad BJ1, Cano PA1, Fely PL1, Myra B1. A Grading System for the Assessment of Ris k of Extraprostatic Extension of Prostate Cancer at Multiparametric MRI. Radiology. 2019 Nov;290(3):709-719. doi: 10.1148/radiol.0905556437. Epub 2018Oct 05. I have personally reviewed [...] ho have questions please contact the health healthcare insurance sales agent that requested your imaging first. Og Flynn MD IMG MRI ORDERABLES documented in this encounter Visit Diagnoses Diagnosis Malignant neoplasm of prostate Malignant neoplasm of prostate documented in this encounter Care Teams Carburetor Specialist Relationship Specialty Start Date End Date Grover Herman MD PCP - General Family Medicine 07/19/20 [address] [place] [address] documented as of this encounter
--- OUTSIDE RECORDS SUMMARY | 2022-07-01 13:46 | XMS_ITS | Encounter Summary ---
:1955 Author Organization [facility] [place] [address] Care Team Providers Name Role Phone Grover Herman MD Primary Care Provider Reason for Visit Reason Comments Injections IM lupron High Dollar Medication (Routine) - Specialty Diagnoses / Procedures Referred By Contact Refer red To Contact Hematology and Oncology Diagnoses Malignant neoplasm of prostate Sherman Davis MD [facility] Infusion Procedures TC LEUPROLIDE ACETATE 7.5MG, FOR DEPOST SUSPENSION (LUPRON DEPOT) INFUSION ROOM [address] [place] [address] [place] [address] Referral ID Status Reason Start Date Expiration Date Visits V isits Requested Authorized [id number] 10/05/2020 09/17/2021 99 99 Encounter Details Date Type Department Care Team Description 01/14/2021 [facility] prostate [address] [place] [phone] Social History Tobacco Use Types [...] Sign Reading Time Taken Comments Blood Pressure 154/79 01/14/2021 9:57 AM EDT Pulse 66 01/14/2021 9:57 AM EDT Temperature 36.4 ??C (97.5 ??F) 01/14/2021 9:57 AM EDT Respiratory Rate 16 01/14/2021 9:57 AM EDT Oxygen Saturation 98% 01/14/2021 9:57 AM EDT Inhaled Oxygen Concentration - - Weight 100.9 kg (222 lb 6.4 oz) 01/14/2021 9:57 AM EDT Height 175.9 cm (5' 9.25) 01/14/2021 9:57 AM EDT Body Mass Index 32.61 01/14/2021 9:57 AM EDT documented in this encounter Progress Notes Carlyn Kinney RN - 01/14/2021 10:00 AM EDT Infusion Note Diagnosis: Prostate Cancer Treatment: Lupron Injection Lupron 7.5 mg injected in left buttocks Assessment: Patient instructed on side effects of Lupron. Patient states understanding of teaching, Patient aware to call clinic with any questions or concerns. He states he was told by Dr. Rina morrissey the casodex. I stated that I would send a message to Dr. Flynn and I would call him with the answer. Plan: Return to clinic as scheduled. documented in this encounter Plan of Treatment Upcoming Encounters Date Type Specialty Care Team Description 07/08/2022 Office Visit Radiation Oncology Shelley Kimble APRN [facility] RADIATION ONCWARNER [place], [place] [address] (Wo rk) documented as of this encounter Visit Diagnoses Diagnosis Malignant neoplasm of prostate documented in this encounter Administered Medications Inactive Administered Medications - up to 3 most recent administrations Medication Order MAR Action Action Date Dose Rate Site leuprolide (Lupron Depot) Given 01/14/2021 10:16 AM 7.5 mg Left Gluteal injection 7.5 mg EDT 7.5 mg, Intramuscular, ONCE, 1 dose, On 01/14/21 at 1000, Routine, This agent is restricted to outpatient use. Is this drug being given as an outpatient? Yes documented in this encounter Care Teams Straw Hat Brim Cutter Operator Relationship Specialty Start Date End Date Grover Herman MD PCP - General Family Medicine 07/19/20 [address] [place] [address] documented as of this encounter
--- OUTSIDE RECORDS SUMMARY | 2022-07-01 13:46 | XMS_ITS | Encounter Summary ---
:1955 Author Organization [facility] [place] [address] Care Team Providers Name Role Phone Grover Herman MD Primary Care Provider Reason for Referral Diagnostic Test (Routine) - Closed Specialty Diagnoses / Procedures Referred By Contact Refer red To Contact Hematology and Oncology Diagnoses Malignant neoplasm of prostate José Luis Rodriguez Devitskiy, Sergey, Procedures MRI Pelvis wwo (Prostate) MD SANDERSON [address] [place] UR[facility] DEPT [address] [place] [address] Referral ID Status Reason Start Date Expiration Date Visits V isits Requested Authorized [id number] Closed Specialty 09/04/2020 03/05/2022 1 1 Service Requested Reason for Visit Diagnostic Test (Routine) - Closed Specialty Diagnoses / Procedures Referred By Contact Refer red To Contact Hematology and Oncology Diagnoses Malignant neoplasm of prostate José Luis Rodriguez Devitskiy, Sergey, Procedures MRI Pelvis wwo (Prostate) MD SANDERSON [address] [place] [place] [facility] [address] [place] [address] Referral ID Status Reason Start Date Expiration Date Visits V isits Requested Authorized [id number] Closed Specialty 09/04/2020 03/05/2022 1 1 Service Requested Encounter Details Date Type Department Care Team Description 09/27/2020 Hospital Encounter MRI at [facility] Sverrisson, Malignant neoplasm [facility] José Luis Dominguez MD of prostate Drive [place], [place] C[place] [address] UROLOGY DEPT [phone] [place] [address] Social History Tobacco Use Types Packs/Day Years [...] Office Visit Radiation Oncology Shelley Kimble APRN [facility] RADIATION ONCWARNER [place], [place] [address] (Wo rk) documented as of this encounter Procedures Procedure Name Priority Date/Time Associated Diagnosis Comme nts MRI PELVIS WWO Routine 09/27/2020 3:27 PM Malignant neoplasm R esults for this (PROSTATE) EST of prostate procedure are i n the results section. documented in this encounter Results MRI Pelvis wwo (Prostate) [...] EXAMINATION: MRI PELVIS WWO (PROSTATE) CLINICAL HISTORY: [place] 4+3 prostate c ancer REASON FOR PROSTATE [...] EXAMINATION: MRI PELVIS WWO (PROSTATE) CLINICAL HISTORY: [place] 4+3 prostate c ancer REASON FOR PROSTATE [...] this report, please contact e number below. José Luis Rodriguez MD IMG MRI ORDERABLES documented in this encounter Visit Diagnoses Diagnosis Malignant neoplasm of prostate documented in this encounter Care Teams Fruit Harvest Worker Relationship Specialty Start Date End Date Grover Herman MD PCP - General Family Medicine 07/19/20 [address] [place] [address] documented as of this encounter
--- OUTSIDE RECORDS SUMMARY | 2022-07-01 13:46 | XMS_ITS | Encounter Summary ---
:1955 Author Organization [facility] [place] [address] Care Team Providers Name Role Phone Grover Herman MD Primary Care Provider Reason for Visit Reason Comments Injections IM lupron High Dollar Medication (Routine) - Specialty Diagnoses / Procedures Referred By Contact Refer red To Contact Hematology and Oncology Diagnoses Malignant neoplasm of prostate Sherman Davis MD [facility] Infusion Procedures TC LEUPROLIDE ACETATE 7.5MG, FOR DEPOST SUSPENSION (LUPRON DEPOT) INFUSION ROOM [address] [place] [address] [place] [address] Referral ID Status Reason Start Date Expiration Date Visits V isits Requested Authorized [id number] 10/05/2020 09/17/2021 99 99 Encounter Details Date Type Department Care Team Description 02/13/2021 [facility] prostate [address] [place] [phone] Social History Tobacco Use Types [...] Sign Reading Time Taken Comments Blood Pressure 152/79 02/13/2021 3:58 PM EDT Pulse 73 02/13/2021 3:58 PM EDT Temperature 36.6 ??C (97.8 ??F) 02/13/2021 3:58 PM EDT Respiratory Rate 18 02/13/2021 3:58 PM EDT Oxygen Saturation 100% 02/13/2021 3:58 PM EDT Inhaled Oxygen Concentration - - Weight 99.8 kg (220 lb) 02/13/2021 3:58 PM EDT Height 175.9 cm (5' 9.25) 02/13/2021 3:58 PM EDT Body Mass Index 32.25 02/13/2021 3:58 PM EDT documented in this encounter Progress Notes Carlyn Kinney RN - 02/13/2021 3:30 PM EDT Infusion Note Diagnosis: Prostate Cancer Treatment: Lupron Injection Lupron 7.5 mg injected in right buttocks Assessment: Patient instructed on side effects of Lupron. Patient states understanding of teaching, Patient aware to call clinic with any questions or concerns. Seen by Dr. Moore. Plan: Return to clinic as scheduled. documented in this encounter Plan of Treatment Upcoming Encounters Date Type Specialty Care Team Description 07/08/2022 Office Visit Radiation Oncology Shelley Kimble APRN [facility] RADIATION ONCWARN[place], [place] [address] (Wo rk) documented as of this encounter Visit Diagnoses Diagnosis Malignant neoplasm of prostate documented in this encounter Administered Medications Inactive Administered Medications - up to 3 most recent administrations Medication Order MAR Action Action Date Dose Rate Site leuprolide (Lupron Depot) Given 02/13/2021 4:12 PM EDT 7.5 mg Right Gluteal injection 7.5 mg 7.5 mg, Intramuscular, ONCE, 1 dose, On Thu02/13/21 at 1630, Routine, This agent is restricted to outpatient use. Is this drug being given as an outpatient? Yes documented in this encounter Care Teams Practice Consultant Relationship Specialty Start Date End Date Grover Herman MD PCP - General Family Medicine 07/19/20 [address] [place] [address] documented as of this encounter
--- OUTSIDE RECORDS SUMMARY | 2022-07-01 13:46 | XMS_ITS | Encounter Summary ---
:1955 Author Organization [place] [address] Care Team Providers Name Role Phone Grover Herman MD Primary Care Provider Encounter Details Date Type Department Care Team Description 02/05/2021 Telephone Radiation Oncology a er[place] [facility] [place] [address] Social History Tobacco Use Types Packs/Day [...] 07/08/2022 Office Visit Radiation Oncology Shelley Kimble, SASH ASSEMBLER [facility] RADIATION ONCWARNER [place], [place] [address] (Wo rk) documented as of this encounter Visit Diagnoses Not on filedocumented in this encounter Care Teams Life Sciences Manager Relationship Specialty Start Date End Date Grover Herman MD PCP - General Family Medicine 07/19/20 [address] [place] [address] documented as of this encounter
--- OUTSIDE RECORDS SUMMARY | 2022-07-01 13:46 | XMS_ITS | Encounter Summary ---
:1955 Author Organization [place] [address] Care Team Providers Name Role Phone Grover Herman MD Primary Care Provider Encounter Details Date Type Department Care Team Description 10/31/2020 [facility] [address] [phone] Social History Tobacco Use [...] Telephone Encounter - Yissel Ashby RN - 10/31/2020 2:42 PM EST Radiation Oncology Nurse Telephone Note [facility] [place], [place] Patient called clinic c/o dull stomach ache that started about 4 days ago. He describes the pain is located below the umbilicus and is always there , grading it a 2/10. Nothing that keeps me awake. He denies fever. He has Celiac disease and is on a gluten free diet. Sometimes that can cause some discomfort, but this dull ache that he is currently experiencing feels different. Sometimes he feels a little bloated with some gas, but not often. He is eating well and consumes a lot of sherly fiber foods. He does not require stool softener or laxative while taking the oxycodone for chronic hip & shoulder pain. He denies diarrhea or constipation. He inquired if it could be from the casodex that he started 10/05/20. He is currently taking it everymorning with his coffee ( no food). He usually eats breakfast a couple hours later. Intervention: stomach upset or ache is listed as a possible side effect. Recommended that he take the casodex with his breakfast. He received lupron 7.5mg on 10/05/20 therefore he will be due sometime next week. He agreed to come Wed 11/07 at 3:00. He was instructed to keep clinic informed of any changes, especially if stomach ache becomes worse and if he develops any other new symptoms. Patient verbalized understanding of these instructions. documented in this encounter Plan of Treatment Upcoming Encounters Date Type Specialty Care Team Description 07/08/2022 Office Visit Radiation Oncology Shelley Kimble, JOURDAN [facility] RADIATION ONCWARNER [place], [place] [address] (Wo rk) documented as of this encounter Visit Diagnoses Not on filedocumented in this encounter Care Teams Auger Press Operator Relationship Specialty Start Date End Date Grover Herman MD PCP - General Family Medicine 07/19/20 [address] [place] [address] documented as of this encounter
--- OUTSIDE RECORDS SUMMARY | 2022-07-01 13:46 | XMS_ITS | Encounter Summary ---
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 ORTHOPAEDIC SURGERY [address] [place] [address] [place] [address] Referral ID Status Reason Start Date Expiration Date Visits V isits Requested Authorized [id number] Evaluate and 09/24/2020 03/23/2021 12 12 Treat Encounter Details Date Type Department Care Team Description 09/24/2020 Telephone Orthopaedics at [facility] [place] [address] Social History Tobacco Use Types Packs/Day [...] this encounter Miscellaneous Notes Telephone Encounter - Lincoln Tapia - 09/24/2020 3:15 PM EST Patient calls while on the phone with his visiting physical therapist. Physical therapy states that the patient has no longer homebound and therefore will be discharged from their services. Patient requested that a new physical therapy referral be generated and sent to [facility] physical therapy. New referral sent via hard line. documented in this encounter Plan of Treatment Upcoming Encounters Date Type Specialty Care Team Description 07/08/2022 Office Visit Radiation Oncology Shelley Kimble, DIRECTOR GOVERNMENT [facility] RADIATION ONCOLO [place], [place] [address] (Wo rk) Scheduled Referrals Name Type Priority Associated Diagnoses Order S chedule Referral to Outpatient Referral Routine Failure of right Orde red: Physical Therapy total hip 09/24/2020 arthroplasty, initial encounte r History of total hip arthroplasty, right documented as of this encounter Visit Diagnoses Diagnosis Failure of right total hip arthroplasty, 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
--- OUTSIDE RECORDS SUMMARY | 2022-07-01 13:47 | XMS_ITS | Encounter Summary ---
:1955 Author Organization [facility] [place] [address] Care Team Providers Name Role Phone Coty Montes MD Primary Care Provider Reason for Visit Reason Onset Date Comments Pre Procedure Call 02/09/2020 Encounter Details Date Type Department Care Team Description 02/09/2020 Telephone Orthopaedics at [facility] Jack Lewis MD Pre Procedure Call [facility] [place] [address] ORTHOPAEDIC SURGERY [phone] [place] [phone] (Wo rk) Social History Tobacco Use Types [...] this encounter Miscellaneous Notes Telephone Encounter - Jennifer Lynn - 02/09/2020 10:59 AM EDT I called and left a message for patient to call [phone] directly and schedule surgery with Dr. Lewis. documented in this encounter Plan of Treatment Upcoming Encounters Date Type Specialty Care Team Description 07/08/2022 Office Visit Radiation Oncology Shelley Kimble, KIER OPERATOR [facility] RADIATION ONCWARNER [place], [place] [address] (Wo rk) documented as of this encounter Visit Diagnoses Not on filedocumented in this encounter Care Teams General Manager Relationship Specialty Start Date End Date Coty Montes MD PCP - General Internal Medicine 01/12/20 07/18/20 [address] [place] [address] documented as of this encounter
--- OUTSIDE RECORDS SUMMARY | 2022-07-01 13:47 | XMS_ITS | Encounter Summary ---
:1955 [place] [address] Care Team Providers Name Role Phone Grover Herman MD Primary Care Provider Encounter Details Date Type Department Care Team Description 07/18/2020 [place] [address] Social History Tobacco Use Types Packs/Day [...] this encounter Miscellaneous Notes Telephone Encounter - Marie Marshall - 07/19/2020 2:11 PM EST 1. ASK: TRAVEL ???Have you travelled outside of [place] ([place], [place], [place], [place], [place], [place]) in the past 14 days??? 2. ASK: EXPOSURE Have you been in contact with anyone suspected or confirmed to have COVID-19 in the past 14 days??? 3. ASK: SYMPTOMS Do you have any new or worsening symptoms on this list that are not related to another medical condition? Fever or chills ?? Cough ?? Shortness of breath or difficulty breathing ?? Fatigue ?? Muscle or body aches ?? Headache ?? Loss of taste or smell ?? Sore throat ?? Congestion or runny nose ?? Nausea or vomiting ?? Diarrhea If 'Yes' to any of the questions above Transfer patient to the Covid-19 Hotline Number ([phone]) for further instructions. If 'No' to all of the questions above Is this the first test for Covid 19 Yes If no, please list date of previous test, result, and type of test (Molecular, Antigen, Antibody or unknown): Resides in intermediate, fdc or other residential facility No Employee or Household Member of Employee No Healthcare Worker No Schedule appointment: Give directions to testing facility. Please advise patient that all passengersin the vehicle must wear a mask and to please either leave their dogs at home or have them crated/behind a net. Telephone call placed/received to schedule Covid 19 testing with patient. Ordering provider: Dr Lewis Testing Facility: [facility] Date of Testin/9 Time of Testin:30am Symptoms: no Telephone Encounter - Aide Hernandez - 07/18/2020 10:26 AM EST LMS for pre op covid testing documented in this encounter Plan of Treatment Upcoming Encounters Date Type Specialty Care Team Description 07/08/2022 Office Visit Radiation Oncology Shelley Kimble, COMPUTER REPAIR TECHNICIAN [facility] RADIATION ONCWARNER [place], [place] [address] (Wo rk) documented as of this encounter Visit Diagnoses Not on filedocumented in this encounter Care Teams Customs Agent Relationship Specialty Start Date End Date Grover Herman MD PCP - General Family Medicine 07/19/20 [address] [place] [address] documented as of this encounter
--- OUTSIDE RECORDS SUMMARY | 2022-07-01 13:47 | XMS_ITS | Encounter Summary ---
:1955 Author Organization [facility] [place] [address] Care Team Providers Name Role Phone Coty Montes MD Primary Care Provider Encounter Details Date Type Department Care Team Description 01/23/2020 Telephone Orthopaedics at [facility] Padma Fam, [place] [address] Social History Tobacco Use Types Packs/Day [...] this encounter Miscellaneous Notes Telephone Encounter - Cecilia Willson - 01/25/2020 1:36 PM EDT Images from the original note were not included. Per message below, patient scheduled on 01/25 at 9:30 Jose Carrillo [facility] [place] Caller: Unspecified (2 days ago, 12:11 PM) ?? [facility] Per Dr. Lewis can we try to schedule Mr. Castro into his clinic tomorrow if Mr. Castro is available? If not please message Becky so she may mail him dressing supplies. Mani, Jose Previous Messages ----- Message ----- From: Jack Lewis MD Sent: 01/25/2020 ?? 1:09 PM EDT To: Becky Cobb RN Thank you. ??I would continue the keflex. ??I have Cc'd Becky Post on this message, if Mr. Castro is able to come to clinic tomorrow she can get him cleaned up and make some recommendations to help get this cleared up. ??Otherwise she will mail him iodosorb and some other supplies. THanks! Florian ----- Message Telephone Encounter - Jose Carrillo - 01/25/2020 11:29 AM EDT Images from the original note were not included. Pictures from Mr. Castro taken and sent on 01/25/20: Sent to Dr. Lewis for review. Telephone Encounter - Padma Fam RN - 01/25/2020 10:19 AM EDT Called Mr Castro this morning, and LM to call [facility], to ask him to resend pictures per Dr Alvarezote, to assess status of incision and incisional drainage. Telephone Encounter - Padma Fam RN - 01/23/2020 2:08 PM EDT Images from the original note were not included. Telephone Encounter - Padma Fam RN - 01/23/2020 12:12 PM EDT S/P Total Hip Revision Arthroplasty, L, 01/12/2020, Dr Debbie Rudd, physical therapist with [facility] called and states Mr Castro has serous drainage from his L hip incision, requiring 2 dressign changes per day. The are is swollen, and redand irritated around the groin area, 2 small open areas, and tape burn.. she is sending pictures to [facility]. Reviewed his chart, and noted follow up on 02/07, with Dr Lewis. Best Call Back for Blaire: [phone] Best Call Back for Mr Castro: [phone] documented in this encounter Plan of Treatment Upcoming Encounters Date Type Specialty Care Team Description 07/08/2022 Office Visit Radiation Oncology Shelley Kimble, JOURDAN [facility] RADIATION ONCWARNER [place], [place] [address] (Wo rk) documented as of this encounter Visit Diagnoses Not on filedocumented in this encounter Care Teams President And Cmo Relationship Specialty Start Date End Date Coty Montes MD PCP - General Internal Medicine 01/12/20 07/18/20 [address] [place] [address] documented as of this encounter
--- OUTSIDE RECORDS SUMMARY | 2022-07-01 13:47 | XMS_ITS | Encounter Summary ---
:1955 Author Organization [facility] [place] [address] Care Team Providers Name Role Phone Coty Montes MD Primary Care Provider Encounter Details Date Type Department Care Team Description 07/18/2020 Office Visit Orthopaedics at [facility] Jack Lewis, History of total hip arthrop lasty, bilateral; [facility] Hip pain, [place] [address] [address] [phone] ORTHOPAEDIC SURG [place], [place] [address] (Wo rk) Social History Tobacco [...] Sign Reading Time Taken Comments Blood Pressure 159/92 07/18/2020 10:11 AM EST Pulse 58 07/18/2020 10:11 AM EST Temperature - - Respiratory Rate - - Oxygen Saturation 98% 07/18/2020 10:11 AM EST Inhaled Oxygen Concentration - - Weight 98.9 kg (218 lb) 07/18/2020 10:11 AM EST actual Height 180.3 cm (5' 10.98) 07/18/2020 10:11 AM EST Body Mass Index 30.42 07/18/2020 10:11 AM EST documented in this encounter Progress Notes Marce Mcdonald RN - 07/18/2020 11:00 AM EST Arthroplasty History/Previous Orthopaedic Surgery: 1. 01/12/[address] Lewis This note is recorded by Marce Mcdonald RN acting as a scribe for Dr. Bjorn Lewis. PREOPERATIVE VISIT Interval History: Dominick Castro is a pleasant 64 y.o. year old male being seen today to discuss a right total hip revision . His history was once again discussed and is outlined in a previous note. They have reviewed their options and at this point are expressing a desire to proceed with surgery. Physical Exam: Exam is previously documented in a note and is essentially unchanged. Hip Exam: Clinical Leg Length Discrepancy - 0cm Inspection of his skin on the operative side demonstrates No skin breakdown or open wounds. Significant Medical Comorbidities Patient Active Problem List Diagnosis Code ??? Rotator cuff tear M75.100 ??? Migraines G43.909 ??? History of total hip arthroplasty Z96.649 ??? s/p revision L REGGIE 01/12/20 (Dr. Lewis) T84.018A, Z96.649 ??? History of total right hip arthroplasty Z96.641 VITALS: BP Readings from Last 1 Encounters: 07/18/20 (!) 159/92 Pulse Readings from Last 1 Encounters: 07/18/20 58 Height: 180.3 cm (5' 10.98) Weight: 98.9 kg (218 lb)(actual) Body mass index is 30.42 kg/m??. Relevant Lab Studies Lab Results Component Value Date WBC 12.4 (H) 01/13/2020 HGB 12.0 (L) 01/13/2020 HCT 37.0 (L) 01/13/2020 PLATELET 175 01/13/2020 CREATININE 0.87 01/13/2020 BUN 14 01/13/2020 NA 140 01/13/2020 K 4.2 01/13/2020 CRP 2.0 07/20/2019 SEDRATE 6 07/20/2019 INR 1.0 01/11/2020 No results for input(s): HA1C in the last 7068 hours. No results for input(s): ALBUMIN in the last 168 hours. CrCl cannot be calculated (Patient's most recent lab result is older than the maximum 30 days allowed.). TJA Clotting and Bleeding Assessment Genetic predisposition or history of DVT or PE: No Hypercoaguable state?: No History of bleeding disorder?: No GI bleed or history of hemorrhagic stroke within the past 2 years: No Patient on lifelong anticoagulant for other reasons: No Discharge anticoagulation plan: ASA 81mg BID for 30 days Infection Prevention Patient demonstrated appropriate skin integrity/infection knowledge level after instructions provided: Yes Patient demonstrated appropriate dental prophylaxis knowledge level after instructions provided: Yes Patient demonstrated appropriate understanding of chlorhexideine wash and mupirocin ointment: Yes General Assessment Total joint preparedness for surgery: Received binder, 1:1 Patient understands when to call the office pre-op and post-op: Verbalizes understanding Assistive device(s) used pre-op: None Patient currently on narcotics: Yes Patient has narcotic agreement signed: Yes (see comment for prescriber information) Assessment and Plan: This is a pleasant 64 y.o. year-old male who presents for a preoperative appointment today for consideration of a right total hip revision . We had a discussion regarding the risks and benefits of surgery. I indicated that in my opinion, this is a treatment option most likely to restore a more normal,pain- free level of function and that we have exhausted reasonable non-operative alternatives. I discussed how I perform the procedure and all of their questions were answered. We discussed the risks of a total hip arthroplasty: Bleeding, infection, scar formation, dislocation, leg length inequality, persistent pain, stiffness, bursitis, failure/wear/loosening/breakage of implants, implant malposition, need for additional/future surgery, fracture, clot formation, embolus, stroke, nerve palsy, blood vessel injury, skin numbness, anesthetic and/or medical complications, . We reviewed options for postoperative DVT prophylaxis, based on AAOS guidelines. We discussed the pros and cons of different anticoagulants in terms of effectiveness and clot / embolus preventions vs. risks of bleeding and wound complications. We also reviewed their preferences regarding use of blood products and confirmed that while we wouldendeavor to minimize the risks of needing any transfusions, if circumstances were such that one or more were indeed required, he would NOT refuse a blood transfusion. Dominick Castro will be prescribed a prescription opioid for the treatment of acute post-operative pain related to orthopedic surgery. Dominick Castro was advised to take the smallest dose possible to control their pain and as their pain improves to take smaller doses and increase the time between doses. The Acute Opioid Therapy Informed Consent form has been completed and sent to medical records for scanning to chart. Opioid Risk Assessment 07/18/2020 DAST-10 Risk Assessment Moderate (3-5) Some recent data might be hidden Opioid PDMP 07/18/2020 01/11/2020 [place] PDMP Query Date 07/18/2020 01/11/2020 [place] PDMP Query Date 07/18/2020 01/11/2020 [place] PDMP Query Date 07/18/2020 01/11/2020 In addition to this medication, non-opioid medications will be prescribed for adjunct treatment of their pain. Non-pharmacological treatment such as ice, elevation and activity modification was recommended as appropriate. Dominick Castro was instructed to administer Mupirocin into the nares twice daily starting 5 days prior to surgical date. Additional instructions were given to him at the time the medication was dispensed. He was also given chlorhexidine soap to use the night before and the morning of surgery. We discussed with the patient the possible discharge scenarios. The patient will require VNA services post-op: yes, patient/caregivers were educated about their right to choose where referrals are placed patient lives in [place], no preference on VNA. The patient prefers crutches to help with post-operative ambulation. The patient has crutches and will bring them to surgery. Recommendations from Dr. Condon: See note Post operative orthopaedic anti-coagulation plan: ASA 81 mg BID for 30 days Chronic anti-coagulation: no Does patient have metal allergy? No Expedited Discharge Candidate?: NO We discussed using Celebrex while in house. Upon discharge we will give the patient Naprosyn to takefor 6 weeks after surgery for post-operative pain management. Any remaining questions were solicited from the patient and answered. Mr. Castro wishes to proceed accordingly and informed consent was subsequently obtained for a right total hip revision . I have personally evaluated the patient and agree with the above note as recorded by CHAZ Farmer MD 07/18/2020 documented in this encounter Plan of Treatment Upcoming Encounters Date Type Specialty Care Team Description 07/08/2022 Office Visit Radiation Oncology Shelley Kimble, JOURDAN [facility] RADIATION ONCOLO [facility], [place] [address] (Wo rk) documented as of this encounter Visit Diagnoses Diagnosis History of total hip arthroplasty, bilat eral Hip pain, right Pain in joint, pelvic region and thigh documented in this encounter Administered Medications Inactive Administered Medications - up to 3 most recent administrations Medication Order MAR Action Action Date Dose Rate Site mupirocin (BACTROBAN) 2 % Given 07/18/2020 11:33 AM EST 1 each ointment 1 each 1 each, Topical (Top), 2 TIMES DAILY, First dose on Thu07/18/20 at 0900, 10 doses, Last dose on Thu07/22/20 at 2100, Apply two times daily to nares for 5 days prior to surgery documented in this encounter Care Teams Mobile Product Manager Relationship Specialty Start Date End Date Coty Montes MD PCP - General Internal Medicine 01/12/20 07/18/20 [address] [place] [address] documented as of this encounter
--- OUTSIDE RECORDS SUMMARY | 2022-07-01 13:47 | XMS_ITS | Encounter Summary ---
:1955 Author Organization [place] [address] Care Team Providers Name Role Phone Coty Montes MD Primary Care Provider Reason for Visit Reason Comments Pre-op Exam PRE OP 07/26/20 RIGHT REGGIE RE VISION Encounter Details Date Type Department Care Team Description 07/18/2020 Office Visit Orthopaedics at [facility], Preop examination; [facility] Ronnie Haq MD Failure of right total hip arthroplasty, [place] [address] CENTER [phone] ORTHOPAEDIC SURGERY [place] [address] Social History Tobacco Use Types Packs/Day Years [...] Time Taken Comments Blood Pressure 159/92 07/18/2020 10:05 AM EST Pulse 58 07/18/2020 10:05 AM EST Temperature - - Respiratory Rate - - Oxygen Saturation 98% 07/18/2020 10:05 AM EST Inhaled Oxygen Concentration - - Weight 98.9 kg (218 lb) 07/18/2020 10:05 AM EST Height 180.3 cm (5' 11) 07/18/2020 10:05 AM EST Body Mass Index 30.4 07/18/2020 10:05 AM EST documented in this encounter Progress Notes Ronnie Condon MD - 07/18/2020 10:00 AM EST Images from the original note were not included. CC: Dominick Castro is a 64 y.o. male known patient to the perioperative clinic with the following problems and medications that is being seen in the clinic for consultation at the request of his surgeon Dr. 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 He would like to go ahead with the hip surgery prior to any intervention on the prostate. He is leaning toward radiation and away from surgery IF intervention is warranted for the prostate. Patient Active Problem List Diagnosis Code ??? Rotator cuff tear M75.100 ??? Migraines G43.909 ??? History of total hip arthroplasty Z96.649 ??? s/p revision L REGGIE 01/12/20 (Dr. Lewis) T84.018A, Z96.649 ??? History of total right hip arthroplasty Z96.641 Current Outpatient Medications Medication Sig Dispense Refill ??? oxyCODONE-acetaminophen (Percocet) 5-325 mg Tablet TK 1 T PO BID ??? sulfamethoxazole-trimethoprim DS (Bactrim DS) 800-160 mg Tablet TK 1 T PO TWICE DAILY. START THEDAY B YOUR PRO IN THE MORNING Current Facility-Administered Medications Medication Dose Route Frequency Provider Last Rate Last Dose ??? mupirocin (BACTROBAN) 2 % ointment 1 each 1 each Topical (Top) BID Jack Lewis MD 1 each at 07/18/20 0483 Social History Occupational History ??? Not on file Tobacco Use ??? Smoking status: Never Smoker ??? Smokeless tobacco: Never Used Substance and Sexual Activity ??? Alcohol use: Yes Alcohol/week: 1.0 standard drinks Types: 1 Standard drinks or equivalent per week Comment: Occasionally, 0-1 drinks a week ??? Drug use: No ??? Sexual activity: Not on file Family History Problem Relation Age of Onset ??? Deep Vein Thrombosis Neg Hx ??? Thrombosis Neg Hx ??? Diabetes Neg Hx Review of Systems Constitutional: Negative for chills, diaphoresis and fever. Respiratory: Negative for cough, shortness of breath and wheezing. Cardiovascular: Negative for chest pain, palpitations and leg swelling. Gastrointestinal: Does have celiac disease and gets diffuse crampy abdominal pain which is sporadic and chronic, he is attentive to gluten and lactose avoidance, denies anal bleeding and blood in stool. Endocrine: Negative for polydipsia and polyphagia. Genitourinary: Negative for dysuria, flank pain and hematuria. Skin: Negative for pallor and rash. Allergic/Immunologic: Does have allergic rhinitis from environmental allergies and a deviated septum, notes no nose bleeding, denies immunocompromised state. Neurological: Negative for presyncope, does have transient numbness in right anterior thigh after loading that leg when standing too long, denies syncope and speech difficulty. Hematological: Negative for adenopathy. Does not bruise/bleed easily. Psychiatric/Behavioral: Negative for confusion, decreased concentration and dysphoric mood. Allergies: No Known Allergies Physical Exam: Last Set of Vitals and Range over past 24 hours: Last value Range last 24 hrs Heart Rate Heart Rate: 58 Heart Rate: [58] Blood Pressure BP: (!) 159/92 BP: (159)/(92) SpO2 SpO2: 98 % SpO2: [98 %] BP was lower yesterday than today but is lower than prior preoperative visit. Estimated body mass index is 30.4 kg/m?? as calculated from the following: Height as of this encounter: 180.3 cm (5' 11). Weight as of this encounter: 98.9 kg (218 lb). Physical Exam Constitutional: He is oriented to person, place, and time. He appears well- developed. No distress. HENT: Head: Normocephalic and atraumatic. Eyes: Right eye exhibits no discharge. Left eye exhibits no discharge. No scleral icterus. Neck: Neck supple. No JVD present. Cardiovascular: Normal rate, regular rhythm and normal heart sounds. Exam reveals no gallop and no friction rub. No murmur heard. Pulmonary/Chest: Effort normal and breath sounds normal. No stridor. No respiratory distress. He hasno wheezes, no rales. He exhibits no tenderness. Abdominal: Soft. Bowel sounds are normal. No HSM percussed or palpated. There is no tenderness. There is no rebound and no guarding. Musculoskeletal: He exhibits no edema. He has no drift with right hip flexion or ankle dorsiflexion against gravity but hip flexion is weaker than the other side. Neurological: He is alert and oriented to person, place, and time. He exhibits no resting or intentional tremors Skin: Skin is warm and dry. He is not diaphoretic. No pallor. Psychiatric: He has a normal mood and affect. His behavior is normal. Judgment and thought content normal. Lab Results Component Value Date WBC 6.5 07/18/2020 RBC 4.93 07/18/2020 HGB 14.9 07/18/2020 HCT 44.9 07/18/2020 MCV 91.1 07/18/2020 MCH 30.2 07/18/2020 MCHC 33.2 07/18/2020 PLATELET 199 07/18/2020 RDWCV 14.6 (H) 07/18/2020 Lab Results Component Value Date NA 137 07/18/2020 K 4.0 07/18/2020 CL 102 07/18/2020 CO2 24 07/18/2020 BUN 14 07/18/2020 CREATININE 1.07 07/18/2020 GLUCOSE 91 07/18/2020 CALCIUM 9.3 07/18/2020 ESTGFR 72 07/18/2020 Lab Results Component Value Date PT 12.1 07/18/2020 INR 1.1 07/18/2020 PTT 32 07/18/2020 Estimated Creatinine Clearance: 82.5 mL/min (based on SCr of 1.07 mg/dL). Xray - 1. Bilateral total hip arthroplasties are intact without dislocation. Unremarkable appearance of the acetabular components. 2. Extensive bilateral periprosthetic lucencies in the femoral stems, left greater than right. This has progressed on the left and is stable on the right. Findings are concerning for small particle disease or loosening. A/P 1. Preop examination 2. Failure of right total hip arthroplasty, sequela He elects to proceed with right REGGIE revision to address MoM sequelae, loosening and pain. He anticipates staging any intervention on his prostate after recovery from this surgery. He has discussed referral to GI for his celiac disease in the future. Major Risk Factor per the Revised Cardiac Risk Index (Bold if present) - There is no history of CAD,CHF, CVA or TIA, DM2 on insulin, or a Creatinine >2 Risk diagnosis for MACE (major adverse cardiovascular event = Myocardial infarction, pulmonary edema, ventricular fibrillation, primary cardiac arrest, or complete heart block.) : Low <1% . 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 ARISCAT/CANET Score - estimates the risk of postoperative pulmonary complications as being low ~3.5%. Per the ACS NSQIP calculator I estimated the following. RECOMMENDATION: Orders per Dr. Jack Lewis documented in this encounter Plan of Treatment Upcoming Encounters Date Type Specialty Care Team Description 07/08/2022 Office Visit Radiation Oncology Shelley Kimble APRN [facility] RADIATION [place], [place] [address] (Wo rk) documented as of this encounter Visit Diagnoses Diagnosis Preop examination Preoperative examination, unspecified Failure of right total hip arthroplasty, sequela documented in this encounter Care Teams Street Engineer Relationship Specialty Start Date End Date Coty Montes MD PCP - General Internal Medicine 01/12/20 07/18/20 [address] [place] [address] documented as of this encounter
--- OUTSIDE RECORDS SUMMARY | 2022-07-01 13:47 | XMS_ITS | Encounter Summary ---
:1955 [place] [address] Care Team Providers Name Role Phone Grover Herman MD Primary Care Provider Reason for Visit Auth/Cert Specialty Diagnoses / Procedures Referred By Contact Refer red To Contact Diagnoses History of total right hip arthroplasty Aseptic Loosening Right REGGIE UNKNOWN Procedures PRO REVISE TOTAL HIP REPLACEMENT @TOTAL HIP REVISION ARTHROPLASTY, COMPLETE (WRVU 30.28) MODIFIER PINNACLE ACETABULUM DEPUY MODIFIER RECLAIM DEPUY Referral ID Status Reason Start Date Expiration Date Visits Requ ested Visits Authorized [id number] 1 1 Encounter Details Date Type Department Care Team Description 07/26/2020 Anesthesia Event Main Operating Room Joleen Rivera MD [facility] [place] [address] [facility] Alan Hickman MD [facility] [place] [address] [place] [address] Anesthesia Record Procedure Summary Procedure Name Responsible Anesthesia Start Anesthesia Stop Time Anesthesiologist Time @TOTAL HIP REVISION Joleen Calvin MD 07/26/20 1357 07/26 1804 ARTHROPLASTY, COMPLETE (WRVU 30.28) (Right Hip) Events Date Time Event Comment 07/26/2020 1311 1357 AN Verify 1357 Start 1357 An Start Data 1410 Anesthesia Ready 1742 Handoff Intra-procedure anesthesia care was transferred after review of the patient's history, current anesthetic/surgi amee status and procedural plan, anticipated issu es and expected post-operative course (includin g disposition.) YANDEL Hanson A 1750 Procedure Stop 1750 an stop data 1803 Stop Name Total Midazolam 4 mg Propofol 30 mg Propofol INF 1,715 mg ceFAZolin (Ancef) 2 g in dextrose 5% 100 mL infusion 2 g tranexamic acid (CYKLOKAPRON) 1,484 mg in sodium chlor yong 0.9% 114.84 mL 1,484 mg BUpivacaine 0.5% 3 mL lactated ringers infusion 1,200 mL Agents Name O2 Air N2O Sevoflurane (et) O2 Auxiliary Flowmeter 1 Blood No blood administrations on file. Lines, Drains, and Airways Type Details Placement Removal Incision 01/12/20; 08; hip; 01/12/20 0819 by Oswaldo, 1715 by Ulices, vertical; 05/12/22 (CHAZ Hinson cleanup utility RA#[id number]); 1715 ([facility] cleanup utility RA#[id number]) PIV 07/26/20 (present on 07/26/20 0000 by 07/27/20 1 218 by momo Gallegos); cephalic vein Dominique Cuellar RN Amanda C, RN (lateral side of arm), right; 18 gauge; 07/27/20; 1218 Incision 07/26/20; 1512; thigh; 07/26/20 1512 by Geoff , 05/12/22 1715 by Ulices, 05/12/22 ([facility] cleanup CHAZ Walter utility RA#[id number]); 1715 ([facility] cleanup utility RA#[id number]) documented in this encounter Social History Tobacco [...] encounter OR Notes Anesthesia Postprocedure Evaluation - Joleen Calvin MD - 07/26/2020 6:04 PM EST Department of Anesthesiology Post-procedure Note Patient: Dominick Castro Procedure Summary Date: 07/26/20 [facility] / [facility] Anesthesia Start: 1357 Anesthesia Stop: 180 Procedures: @TOTAL HIP REVISION ARTHROPLASTY, COMPLETE (WRVU 30.28) (Right Hip) MODIFIER PINNACLE ACETABULUM DEPUY (N/A Hip) MODIFIER RECLAIM DEPUY (Right Hip) Diagnosis: (Aseptic Loosening Right REGGIE) Surgeon: Jack Lewis MD Responsible Provider: Joleen Calvin MD Anesthesia Type: spinal ASA Status: 2 All Anesthesia Providers: Anesthesiologist: Akhil Weeks MD; Joleen Calvin MD REFRIGERATION MANAGER: Lev Coffey CRNA; Lucy Salinas CRNA Anesthesia Fellow: Alan Hickman MD Vitals Value Taken Time BP 122/81 07/26/20 1801 Temp Pulse 60 07/26/20 1804 Resp 19 07/26/20 1804 SpO2 100 % 07/26/20 1804 Pain Level Vitals shown include unvalidated device data. Patient Location: PACU/[facility] Level of Consciousness: Awake and Alert Pain Management: Satisfactory Analgesia PONV: None Cardiovascular Status: At Baseline and Hemodynamically Stable Respiratory Status: At Baseline and Room Air Postoperative Fluid Status: Intravascular EUvolemia Possible Anesthetic Complications: NONE apparent at time of evaluation Final Primary Anesthesia Type: Spinal (The anesthetic type performed was the same as planned.) Comments: JOLEEN CALVIN MD Anesthesia Procedure Notes - Alan Hickman MD - 07/26/2020 2:22 PM EST Associated Order(s): Neuraxial Block Procedure: Neuraxial Block Primary Anesthetic Type: Spinal The patient was greeted. The sedation plan, its benefits, risks and alternatives were discussed withthe patient. The patient has consented to the procedure. The medical history and chart were reviewed. The timeout was performed. Start time: 07/26/2020 1:35 PM End time: 07/26/2020 1:45 PM Patient Location: Block Room Baseline Information ([id number] entry for database use): Addiction History: No Chronic Pain: No On opioids (any route) for 4 weeks or more: No Anxiety: No Depression: No Mood Disorder: No COPD: No CAD: No HTN: No DM: No Patient Prep Position: Sitting Prep: Hand Hygiene, Hat, Mask, Sterile Gloves, Chlorhexidine and Patient Draped Injection technique: single-shot Skin Anesthetic Lidocaine 1% 5 ml Procedure Technique Level of needle insertion: L2-3 Needle approach: midline Needle Type: [facility] Gauge: 25 Needle length: 3.5 in Number of attempts: 1 Medications: BUpivacaine 0.5%, 3 mL Events/Notes Events: None Resident/REFRIGERATION MANAGER: Second Resident/REFRIGERATION MANAGER: Fellow: Alan Hickman MD Attending Physician: Akhil Weeks MD ~~~~~~~~~~~~~~~~~~~~~~~~~~~~~~~~~~~~~~~~~~~~~~~~~~~~~~~~~~~~ Anesthesia Preprocedure Evaluation - Alan Hickman MD - 07/25/2020 6:15 PM EST Pre-Anesthesia Evaluation for: Dominick Castro a 64 y.o. male. Procedure(s): @TOTAL HIP REVISION ARTHROPLASTY, COMPLETE (WRVU 30.28) MODIFIER PINNACLE ACETABULUM DEPUY MODIFIER RECLAIM DEPUY Patient Active Problem List Diagnosis ??? Obesity (BMI 30.0-34.9) ??? Chronic prescription [...] 30.28) performed by Jack Lewis MD at [facility] OR Social History Tobacco Use ??? Smoking status: Never Smoker ??? Smokeless tobacco: Never Used Substance Use Topics ??? Alcohol use: Yes Alcohol/week: 1.0 standard drinks Types: 1 Standard drinks or equivalent per week Comment: Occasionally, 0-1 drinks a week Social History Substance and Sexual Activity Drug Use No No Known Allergies Medications: MAR and/or home medications have been reviewed. Physical Exam: No data found. There is no height or weight on file to calculate BMI. Airway Assessment: Mallampati: I TM distance: >3 FB Neck ROM: full Cardiovascular Assessment: Rhythm: regular Rate: normal Pulmonary Assessment: breath sounds clear to auscultation Dental Assessment: Misc Assessment: Patient is wearing No contact(s). IV access: Peripheral line Anesthesia Plan: ASA 2 spinal, Dominick Castro is a 64 y.o. male is presenting for Procedure(s): @TOTAL HIP REVISION ARTHROPLASTY, COMPLETE (WRVU 30.28) MODIFIER PINNACLE ACETABULUM DEPUY MODIFIER RECLAIM DEPUY PMH: Migraine, Obesity, Chronic opioid use PSH: bilateral hip arthroplasties Anesth Hx: PONV Social Hx: social drinker, nonsmoker Pertinent Meds: No meds Allergies: No Known Allergies NPO status: appropriate METS: > 4 Cardiac/Pulm Hx: no major past hx Labs: 07/18/20 01/13/20 01/12/20 1314 0525 1457 WBC 6.5 12.4* 14.8* HGB 14.9 12.0* 13.6* HCT 44.9 37.0* 39.3* PLATELET 199 175 172 07/18/20 01/13/20 01/12/20 1314 0525 1457 NA 137 140 136 K 4.0 4.2 3.8 CL 102 105 103 CO2 24 23 21* BUN 14 14 16 CREATININE 1.07 0.87 0.88 No results for input(s): AST, ALT, ALKPHOS, BILITOT, BILIDIR in the last 7068 hours. No results for input(s): PT, INR, PTT in the last 168 hours. Lab Results Component Value Date ABORH O Pos 07/18/2020 Anesthetic Plan Spinal with GA as back up. Standard ASA monitors, IV access Region - Other Informed Consent: Anesthetic plan and risks discussed with patient. Use of blood products discussed with patient who consented to blood products. Plan discussed with attending. PAT Clinic Note documented in this encounter Miscellaneous Notes Addendum Note - Akhil Weeks MD - 07/27/2020 2:47 PM EST Addendum created 07/27/20 8971 by Ahkil Weeks MD Cosign clinical note documented in this encounter Plan of Treatment Upcoming Encounters Date Type Specialty Care Team Description 07/08/2022 Office Visit Radiation Oncology Shelley Kimble, BAGGAGE CLERK [facility] [place]IATION [place], [place] [address] (Wo rk) documented as of this encounter Procedures Procedure Name Priority Date/Time Associated Diagnosis Comme nts ANE NEURAXIAL APS Routine 07/26/2020 2:22 PM Resu lts for this USE EST procedure are i n the results section. documented in this encounter Results Neuraxial Block (07/26/2020 2:22 PM EST) Narrative Akhil Weeks MD - 07/26/2020 2:22 PM EST Alan Hickman MD ? 07/26/2020 ??2:24 PM Procedure: ?? Neuraxial Block Primary Anesthetic Type: Spinal The patient was greeted. The sedation pl an, its benefits, risks and alternatives were discussed with the pat ient. ??The patient has consented to the procedure. ??The medical history and chart were reviewed. ??The timeout was performed. Start time: 07/26/2020 1:35 PM End time: 07/26/2020 1:45 PM Patient Location: Block Room Baseline Information ([id number] entry for database use): Addiction History: ??No Chronic Pain: ??No On opioids (any route) for 4 weeks or mo re: ??No Anxiety: ??No Depression: ??No Mood Disorder: ??No COPD: ??No CAD: ??No HTN: ??No DM: ??No Patient Prep Position: Sitting Prep: Hand Hygiene, Hat, Mask, Sterile G loves, Chlorhexidine and Patient Draped Injection technique: single-shot Skin Anesthetic Lidocaine 1% ??5 ml Procedure Technique Level of needle insertion: L2-3 Needle approach: midline Needle Type: [facility] Gauge: 25 Needle length: 3.5 in Number of attempts: 1 Medications: BUpivacaine 0.5%, 3 mL Events/Notes Events: ??None Resident/REFRIGERATION MANAGER: ? Second Resident/REFRIGERATION MANAGER: Fellow: ?Alan Hickman MD Attending Physician: ? St erika Weeks MD ~~~~~~~~~~~~~~~~~~~~~~~~~~~~~~~~~~~~~~~~ ~~~~~~~~~~~~~~~~~~~~ Akhil Weeks MD SYSTEM TECHNOLOGIST [facility] documented in this encounter Visit Diagnoses Not on filedocumented in this encounter Administered Medications Inactive Administered Medications - up to 3 most recent administrations Medication Order MAR Action Action Date Dose Rate Site BUpivacaine (PF) (Marcaine) 0.5 % Given 07/26/2020 2:22 PM EST 3 mLs (5 mg/mL) injection Starting on Charlette 07/26/20 at 1422, Until Charlette 07/26/20 at 1422, Anesthesia Intra-op, Routine ceFAZolin (Ancef) 2 g in dextrose 5% 100 mL Given 07/26/2020 2:0 6 PM EST 2 g infusion 2 g, Intravenous, EVERY 3 HOURS, 1 dose, First dose on Charlette 07/26/20 at 1145, Administer over 30 Minutes, Redose after 3 hours., Intra-Operative (Intra-Procedure), Indication for (Active or Suspected): Prophylaxis lactated ringers infusion New Bag 07/26/2020 1:57 PM EST 1,000 mL, at 100 mL/hr, Intravenous, CONTINUOUS, Starting on Charlette 07/26/20 at 1145, Until Charlette 07/26/20 at 1941, Day of Surgery (Day of Procedure) midazolam (PF) (VERSED) multi-dose injec tion Given 07/26/2020 2:08 PM EST 2 mg Intravenous, PRN, Starting on Charlette 07/26/20 at 1408, Until Charlette 07/26/20 at 1804, Anesthesia Intra-op, Routine Given 07/26/2020 1:54 PM EST 2 mg propofoL (Diprivan) 10 mg/mL bolus injection Given 0 2:09 PM EST 30 mg (Anesthesia) Intravenous, PRN, Starting on Charlette 07/26/20 at 1409, Until Charlette 07/26/20 at 1804, Anesthesia Intra-op propofoL (Diprivan) infusion Rate/Dose 07/26/2020 5:16 50 mcg/kg/min 29.4 mL/hr Intravenous, CONTINUOUS PRN, Change PM EST Starting on Charlette 07/26/20 at 1407, Until Charlette 07/26/20 at 1804, Anesthesia Intra-op, Routine Rate/Dose Change 07/26/2020 4:40 PM EST 125 mcg/kg/min 73.5 mL/hr Rate/Dose Change 07/26/2020 2:14 PM EST 75 mcg/kg/min 44.1 mL/hr tranexamic acid (CYKLOKAPRON) 1,484 mg in New Bag 2019 2:06 PM EST 1,484 mg sodium chloride 0.9% 114.84 mL 1,484 mg (rounded from 1,483.5 mg = 15 mg/kg/dose ? 98.9 kg), Intravenous, ONCE, 1 dose, On Charlette 07/26/20 at 1145, Administer over 30 Minutes, Day of Surgery (Day of Procedure) documented in this encounter Care Teams Tele Tech Relationship Specialty Start Date End Date Grover Herman MD PCP - General Family Medicine 07/19/20 [address] [place] [address] documented as of this encounter
--- OUTSIDE RECORDS SUMMARY | 2022-07-01 13:47 | XMS_ITS | Encounter Summary ---
:1955 Author Organization [facility] [place] [address] Care Team Providers Name Role Phone Grover [...] Expiration Date Visits Requ ested Visits Authorized [id number] 1 1 Encounter Details Date Type Department Care Team Description 07/26/2020 - Hospital PACU at Jack Ruvalcaba History of t otal 07/27/2020 Encounter Eula Haq MD [facility] ONE MEDICAL arthroplasty [facility] DR Matt [place], [place] SURGERY [id number] [place] [id number] [phone] Social History Tobacco Use Types Packs/Day Years [...] Sign Reading Time Taken Comments Blood Pressure 138/74 07/27/2020 8:00 AM EST Pulse 70 07/27/2020 12:00 AM EST Temperature 37.8 ??C (100 ??F) 07/27/2020 8:00 AM EST Respiratory Rate 16 07/27/2020 8:00 AM EST Oxygen Saturation 93% 07/27/2020 9:50 AM EST Inhaled Oxygen Concentration - - Weight 98 kg (216 lb) 07/26/2020 11:18 AM EST Height 180.3 cm (5' 10.98) 07/26/2020 11:18 AM EST Body Mass Index 30.14 07/26/2020 11:18 AM EST documented in this encounter Discharge Summaries Thom Siegel PA - 07/27/2020 11:25 AM EST Discharge Summary Patient Name: Dominick Castro Patient Age: 64 y.o. Language: Afghan Race: White Ethnicity: Not nor Admit date: 07/26/2020 Discharge date and time: 07/27/2020 Attending Physician: Jack Lewis MD Discharge Physician: Jack Lewis MD Follow-up Recommendations for Providers: See discharge instructions for additional details. Future Appointments Date Time Provider Department Center 08/22/2020 10:00 AM [facility] DX ROOM 3 Xray [facility] Rad 08/22/2020 11:00 AM Jack Lewis MD [facility] ORTH 3C [facility] Inpatient Provider Contact Information: Jack Lewis MD Orthopedics: [phone] After hours and weekends, call [facility] Requirements Manager, , and have the Orthopedic resident paged. Discharge Diagnoses (Hospital Problems) and Secondary Diagnoses (Chronic Problems): Active Hospital Problems No active problems to display. Resolved Hospital Problems Diagnosis Date Resolved ??? History of total right hip arthroplasty 07/24/2020 Active Non-Hospital Problems Diagnosis ??? Obesity (BMI 30.0-34.9) ??? Chronic prescription opiate use ??? s/p revision L REGGIE 01/12/20 (Dr. Lewis) ??? Migraines ??? Rotator cuff tear Operations/Major Procedures: 07/26/2020 Surgeon(s) and Role: * Jack Lewis MD - Primary * Walter Crenshaw MD - Fellow * Pramod Collins MD - Resident Procedure(s): @TOTAL HIP REVISION ARTHROPLASTY, COMPLETE (WRVU 30.28) MODIFIER PINNACLE ACETABULUM DEPUY MODIFIER RECLAIM DEPUY History of Presentation: Dominick Castro is a 64 y.o. male who is s/p R REGGIE who was having pain associated with MoM sequelae. He is several months s/p revision of the L REGGIE for the same reason and has had very good resolution of symptoms. He looks forward to revision of the right hip as well. Hospital Course: The patient was admitted via Same Day Surgery for the above operation. DVT prophylaxis was: Aspirin 81 mg BID x 30 days. Patient began rehab on POD#1 for touchdown weight bearing of right leg and reinforcement of the REGGIE Precautions. Abarca was removed on POD#0 and patient was voiding spontaneously. Wound inspected POD#1 and found to be benign. Patient did not have a bowel movement prior to discharge but was passing flatus and was taking a diet without difficulty. By POD#1 the patient was medically stable and was cleared for safe discharge to home per PT. Vital Signs at Discharge: Weight: Wt Readings from Last 1 Encounters: 07/26/20 98 kg (216 lb) Height: Ht Readings from Last 1 Encounters: 07/26/20 180.3 cm (5' 10.98) HC: HC Readings from Last 1 Encounters: No data found for HC BMI: Body mass index is 30.14 kg/m??. Last value Range last 24 hrs Temperature Temp: 37.8 ??C (100 ??F) Temp: [36.7 ??C (98.1 ??F)-37.8 ??C (100 ??F)] Heart Rate Heart Rate: 70 Heart Rate: [41-77] Blood Pressure BP: 138/74 BP: (71-158)/(39-84) Respiratory Rate Resp: 16 Resp: [12-24] SpO2 SpO2: 96 % SpO2: [96 %-100 %] Art BP BP (Arterial Line): -- Functional and Cognitive Status: Patient mobilizing with use of walker and enhanced precautions to include TDWB, cognitively intact at baseline mental status at time of discharge. Important Lab Data: Last 3 wbc, hgb, hct plt Recent Labs 07/27/20 0410 07/26/20 1827 07/18/20 1314 WBC 10.0* 10.4* 6.5 HGB 11.0* 13.0* 14.9 HCT 32.9* 38.9* 44.9 PLATELET 164 178 199 Last 3 Lytes Recent Labs 07/27/20 0410 07/18/20 1314 01/13/20 0525 NA 133* 137 140 K 3.9 4.0 4.2 CL 102 102 105 CO2 24 24 23 BUN 14 14 14 CREATININE 1.00 1.07 0.87 Studies: Xr Pelvis (generic) Result Date: 07/26/2020 EXAMINATION: XR PELVIS (GENERIC), XR FEMUR 2 VIEWS RIGHT (GENERIC) CLINICAL HISTORY: s/p revision REGGIE. Thanks! TECHNIQUE: AP pelvis, and 4 radiographs of view. COMPARISON: 02/08/2020 FINDINGS/IMPRESSION: Patient is status post right total hip arthroplasty with carcelage wires longerfemoral stem. Residual lucency at the proximal femoral stem component. No immediate postoperative complication. Alignment and positioning remains stable. Postsurgical changes are noted in the overlyingsoft tissues. Pelvic radiograph demonstrates no acute fracture. Redemonstration of periprosthetic lucency around the left femoral stems remain stable when compared to the prior study dated 02/08/2020. Thank you for letting us participate in the care of this patient. For questions regarding this report,please contact the number below. Electronically signed by: Darling De La Garza MD, [facility] ([phone]), at 07/26/2020 10:08 PM Xr Femur 2 Views Right (generic) Result Date: 07/26/2020 EXAMINATION: XR PELVIS (GENERIC), XR FEMUR 2 VIEWS RIGHT (GENERIC) CLINICAL HISTORY: s/p revision REGGIE. Thanks! TECHNIQUE: AP pelvis, and 4 radiographs of view. COMPARISON: 02/08/2020 FINDINGS/IMPRESSION: Patient is status post right total hip arthroplasty with carcelage wires longerfemoral stem. Residual lucency at the proximal femoral stem component. No immediate postoperative complication. Alignment and positioning remains stable. Postsurgical changes are noted in the overlyingsoft tissues. Pelvic radiograph demonstrates no acute fracture. Redemonstration of periprosthetic lucency around the left femoral stems remain stable when compared to the prior study dated 02/08/2020. Thank you for letting us participate in the care of this patient. For questions regarding this report,please contact the number below. Electronically signed by: Darling De La Garza MD, [facility] ([phone]), at 07/26/2020 10:08 PM Pending Studies and Lab Data at Discharge: Order Name Source Comment Collection Info Order Time SPECIMEN TO PATHOLOGY Aseptic Loosening Right REGGIE left hip synovium resection 07/26/2020 2:46 PM Time specimen removed from patient: 2:46 PM Number of tissue samples (in container) 1 Transfusions: No Discharge Conditions/Prognosis: Stable, awake, and alert. Mobilizing as noted above, pain controlledon oral medications. Discharge to: Home with VNA services Updated Allergies/ADRs: No Known Allergies Immunizations Given this Hospitalization: There is no immunization history on file for this patient. Discharge Medications: Your Medications New Medications Dose Details acetaminophen 500 mg Tab Commonly known as: Tylenol Take 2 tablets by mouth every 8 hours for 10 days. 1,000 mg Refills: 0 aspirin EC 81 mg Tbec Take 1 tablet by mouth 2 times daily for 30 days. 81 mg Quantity: 60 tablet Refills: 0 gabapentin 300 mg Cap Commonly known as: Neurontin Take 1 capsule by mouth nightly for 30 days. 300 mg Quantity: 30 capsule Refills: 0 naproxen 500 mg Tab Commonly known as: NAPROSYN Take 1 tablet by mouth 2 times daily (with meals) for 42 days. 500 mg Quantity: 84 tablet Refills: 0 omeprazole 20 mg Cpdr Commonly known as: PriLOSEC Take 1 capsule by mouth daily for 42 days. 20 mg Quantity: 42 capsule Refills: 0 oxyCODONE 5 mg Tab Commonly known as: Roxicodone Take 1-2 tablets by mouth every 4 hours as needed for Pain for up to 40 doses. 5-10 mg Quantity: 40 tablet Refills: 0 polyethylene glycoL 17 gram Pwpk Commonly known as: Miralax Take 17 g by mouth daily as needed (For constipation) for up to 30 days. 17 g Refills: 0 senna 8.6 mg Tab Commonly known as: Senna Take 1 tablet by mouth 2 times daily as needed for Constipation for up to 30 days. 1 tablet Refills: 0 STOPPED Medications oxyCODONE-acetaminophen 5-325 mg Tab Commonly known as: Percocet Smoking Status at Discharge: Social History Tobacco Use Smoking Status Never Smoker Smokeless Tobacco Never Used Instructions Given to Patient at Discharge: Patient Instructions Activity: 1. Your weight-bearing status is - touch down weight bearing of right leg. 2. Remember to use a walker or crutches at all times for balance and protection. Your physical therapist may progress you to using a cane when appropriate. 3. Remember your hip precautions: Enhanced: DO NOT flex the operative leg more than 90 degrees. DO NOT cross your legs. USE a raised seating / toilet seat. Use a pillow or the Abduction pillow between your legs to remind you not to cross your legs. Anticoagulation: Aspirin - You are being discharged on enteric-coated Aspirin 81 mg by mouth twice aday for 30 days. After your dose on 08/25/2020 stop the Aspirin, unless you are told otherwise by your Orthopedic surgeon. Take this medication with food or large amounts (240 mL) of water or milk to minimize GI irritation. Diet: Resume your usual diet but increase your intake of fluids and fiber while you are on narcotic pain meds to prevent constipation. Driving: None until you are cleared to do so by your Orthopedic surgeon. You should not drive while you are on narcotic pain meds as they can affect your judgment and reaction time. Call your surgeon with any questions/concerns. Medications: 1. The pain medication you are on can cause constipation so increase your intake of fluids and fiberwhile you are on them. The stool softener, Pericolace, that has been prescribed can also be taken tofacilitate a bowel movement. You can also take an uunl-ova-ujtilwx medication, Miralax if needed to combat constipation. 2. If you need a renewal on your narcotic pain medication, you need to give the Orthopedic clinic enough time to process your request. This can take up to three days, so plan accordingly. 3. Continue acetaminophen (Tylenol) 1,000mg every 8 hours around the clock until 08/06/2020 (for tendays after your surgery). This can be effective in controlling pain along with your other medications. After that you can take Tylenol as needed per package insert. Do not take more than 3,000mg of acet aminophen in a 24 hour period. 4. You have been discharged on a short acting narcotic. You will be on this medication for a limitedperiod of time only. Take the smallest dose possible to control your pain. As your pain improves take smaller, less frequent doses. You may break the tablet to achieve a smaller dose. 5. You are being discharged on prescription strength naproxen (Aleve). This medication is a type of nonsteroidal anti-inflammatory (NSAID). This will help with your pain and inflammation. Take this twice a day for the next 6 weeks. Your last dose will be on 09/06/2020. If you no longer are requiring the narcotic pain medication you may change the way you take the prescribed naproxen and instead take twice a day as needed. 6. You are being discharged on a proton pump inhibitor (prilosec). This will decrease stomach irritation that may be caused by NSAIDs. Take this daily for the next 6 weeks while you are on the NSAID. 7. You are being discharged on gabapentin (Neurontin), a non-narcotic medication that will help withyour pain at night and allow you to sleep better. Take this at night for the next 4 weeks. Shower (internal sutures): 1. You can shower but remember your activity limitations and always have a chair available for balance and protection. DO NOT submerge the dressing/incision. 2. (Mepilex) Do not let water run over the operative dressing. If it becomes wet lightly pat the dressing dry. DO NOT submerge the incision. When this operative dressing is removed you can let water gently run over the incision. Wound (Mepilex): 1. You do NOT have any external juan david or sutures in place. Your sutures are internal and will be absorbed over time. 2. You have a Mepilex dressing in place. Do not lift the edge of the Mepilex dressing to inspect theincision, it will not re-adhere. Remove your operative dressing 7 days after your surgery (08/03/2020). When it is removed you can leave the incision open to air or cover it with a light dressing. 3. If you have lots of drainage when you get home (and it is before 08/03/2020), remove the operative dressing and replace it with dry sterile gauze. Continue with daily dressing changes (and as needed) until the drainage stops, then remove the dressing and leave the incision open to air or lightly covered. Misc: Remember that ICE and elevation are very important after surgery to help decrease swelling andcontrol pain. Use ICE for 20-30 minutes at a time and keep your leg elevated as much as possible. Call your doctor ([phone]) if you develop: 1. Fever greater than 100.5 2. Severe nausea or vomiting 3. Increasing pain that is not controlled by pain medications 4. Increasing redness, swelling, or drainage from incisions 5. Change in sensation FOLLOW-UP APPOINTMENTS: 1. You will have follow-up appointments at [facility] as indicated below in Future Appointment and Orders. 2. You will need to have x-rays prior to your follow-up appointment on 08/22/2020. Please come to Radiology, desk , 1 hour BEFORE that appointment for these x-rays. Future Appointments Date Time Provider Department Center 08/22/2020 10:00 AM [facility] DX ROOM 3 Xray [facility] 08/22/2020 11:00 AM Jack Lewis MD [facility] ORTH [address] [place] [address] If you have questions or concerns: Thursday through Thursday, 8 AM - 5 PM, please call Dr. Jack Lewis MD's office at . If it is after 5 PM, the weekend, or holidays, please call and ask to speak with the Orthopedic resident on-call. General Instructions None Future Appointments and Orders Future Appointments and Orders Future Appointments Provider Department Dept Phone 08/22/2020 10:00 AM [facility] DX ROOM 3 XRay at [facility] Arrive at: Director Of Creative Services Area [phone] Please go to Director Of Creative Services Area ([place] Location). 08/22/2020 11:00 AM Jack Lewis MD Orthopaedics at [facility] Arrive at: Director Of Creative Services Area [phone] Future Orders Complete By Expires Referral to Home Health - at DISCHARGE [XXX1939 CPT(R)] As directed Process Instructions: Scheduling Instructions: Comments: DOCUMENTATION FOR VNA SERVICES (INCLUDING PATIENTS WITH MEDICARE COVERAGE BEING DISCHARGED HOME WITH VNA SERVICES AND/OR HOSPICE SERVICES) PATIENT'S LOCATION: Dominick Castro [facility] to [facility] [address] [facility] [id number] [employer] Name: self/patient In discussion with the attending physician, it is certified that this patient is under their care and that they, or a nurse practitioner, clinical nurse specialist or physician's congressional assistant who is working directly with them, had a face to face encounter that meets the physician face to face encounter re quirements with this patient on 07/27/2020 The encounter with the patient was in whole, or in part, for the following medical condition, whichis the primary reason for home health care services: s/p Right Revision REGGIE. In discussion with the primary medical team, it is certified that, based on their findings, the indicated services are medically necessary and appropriate for home health services. HOME HEALTH AGENCY: [facility]. PHONE: [phone] FAX: [phone] Longterm(SN) eval if indicated on admission visit Activity: TDWB, enhanced precautions Closure: Resorbable sutures, steri strips Dressing: Gauze/tegaderm x 7 days Do not lift the edge of the mepilex dressing to observe the incision; this dressing needs to stay inplace until 7 days after surgery. Continue PT rehab for balance, endurance, joint mobility, ROM, Strength, REGGIE protocol FOR MEDICARE ONLY: (please delete this section if not Medicare) In discussion with the attending physician, it is certified that the clinical findings support that this patient is homebound ;i.e. absences from home require considerable and taxing effort due to: requires assistance of another to navigate community surfaces Please note that any additional orders needs or changes will need to be obtained from this patient'sPCP: Grover Herman MD [address] [place], [place] [id number] All VNA agencies which cover patient's residence area have been reviewed, either verbally or in writing, and patient/family have chosen the indicated home health agency. Questions: Agency name and contact information: [facility] Patient location post discharge: home What services are requested: Physical Therapy Start date: Responsible MD post discharge contact info: PCP Primary Care Provider: Grover Herman MD [phone] Discharge References/Attachments None documented in this encounter Discharge Instructions Patient InstructionsMiThom keyes PA - 07/26/2020 3:31 PM EST Activity: 1. Your weight-bearing status is - touch down weight bearing of right leg. 2. Remember to use a walker or crutches at all times for balance and protection. Your physical therapist may progress you to using a cane when appropriate. 3. Remember your hip precautions: Enhanced: DO NOT flex the operative leg more than 90 degrees. DO NOT cross your legs. USE a raised seating / toilet seat. Use a pillow or the Abduction pillow between your legs to remind you not to cross your legs. Anticoagulation: Aspirin - You are being discharged on enteric-coated Aspirin 81 mg by mouth twice aday for 30 days. After your dose on 08/25/2020 stop the Aspirin, unless you are told otherwise by your Orthopedic surgeon. Take this medication with food or large amounts (240 mL) of water or milk to minimize GI irritation. Diet: Resume your usual diet but increase your intake of fluids and fiber while you are on narcotic pain meds to prevent constipation. Driving: None until you are cleared to do so by your Orthopedic surgeon. You should not drive while you are on narcotic pain meds as they can affect your judgment and reaction time. Call your surgeon with any questions/concerns. Medications: 1. The pain medication you are on can cause constipation so increase your intake of fluids and fiberwhile you are on them. The stool softener, Pericolace, that has been prescribed can also be taken tofacilitate a bowel movement. You can also take an ocxm-myn-tsxqwwb medication, Miralax if needed to combat constipation. 2. If you need a renewal on your narcotic pain medication, you need to give the Orthopedic clinic enough time to process your request. This can take up to three days, so plan accordingly. 3. Continue acetaminophen (Tylenol) 1,000mg every 8 hours around the clock until 08/06/2020 (for tendays after your surgery). This can be effective in controlling pain along with your other medications. After that you can take Tylenol as needed per package insert. Do not take more than 3,000mg of acet aminophen in a 24 hour period. 4. You have been discharged on a short acting narcotic. You will be on this medication for a limitedperiod of time only. Take the smallest dose possible to control your pain. As your pain improves take smaller, less frequent doses. You may break the tablet to achieve a smaller dose. 5. You are being discharged on prescription strength naproxen (Aleve). This medication is a type of nonsteroidal anti-inflammatory (NSAID). This will help with your pain and inflammation. Take this twice a day for the next 6 weeks. Your last dose will be on 09/06/2020. If you no longer are requiring the narcotic pain medication you may change the way you take the prescribed naproxen and instead take twice a day as needed. 6. You are being discharged on a proton pump inhibitor (prilosec). This will decrease stomach irritation that may be caused by NSAIDs. Take this daily for the next 6 weeks while you are on the NSAID. 7. You are being discharged on gabapentin (Neurontin), a non-narcotic medication that will help withyour pain at night and allow you to sleep better. Take this at night for the next 4 weeks. Shower (internal sutures): 1. You can shower but remember your activity limitations and always have a chair available for balance and protection. DO NOT submerge the dressing/incision. 2. (Mepilex) Do not let water run over the operative dressing. If it becomes wet lightly pat the dressing dry. DO NOT submerge the incision. When this operative dressing is removed you can let water gently run over the incision. Wound (Mepilex): 1. You do NOT have any external juan david or sutures in place. Your sutures are internal and will be absorbed over time. 2. You have a Mepilex dressing in place. Do not lift the edge of the Mepilex dressing to inspect theincision, it will not re-adhere. Remove your operative dressing 7 days after your surgery (08/03/2020). When it is removed you can leave the incision open to air or cover it with a light dressing. 3. If you have lots of drainage when you get home (and it is before 08/03/2020), remove the operative dressing and replace it with dry sterile gauze. Continue with daily dressing changes (and as needed) until the drainage stops, then remove the dressing and leave the incision open to air or lightly covered. Misc: Remember that ICE and elevation are very important after surgery to help decrease swelling andcontrol pain. Use ICE for 20-30 minutes at a time and keep your leg elevated as much as possible. Call your doctor ([phone]) if you develop: 1. Fever greater than 100.5 2. Severe nausea or vomiting 3. Increasing pain that is not controlled by pain medications 4. Increasing redness, swelling, or drainage from incisions 5. Change in sensation FOLLOW-UP APPOINTMENTS: 1. You will have follow-up appointments at [facility] as indicated below in Future Appointment and Orders. 2. You will need to have x-rays prior to your follow-up appointment on 08/22/2020. Please come to Radiology, desk 3T, 1 hour BEFORE that appointment for these x-rays. Future Appointments Date Time Provider Department Center 08/22/2020 10:00 AM [facility] DX ROOM 3 Xray [facility] Rad 08/22/2020 11:00 AM Jack Lewis MD [facility] ORTH 3C [facility] If you have questions or concerns: Thursday through Thursday, 8 AM - 5 PM, please call Dr. Jack Lewis MD's office at . If it is after 5 PM, the weekend, or holidays, please call and ask to speak with the Orthopedic resident on-call. documented in this encounter Medications at Time of Discharge Medication Sig Dispensed Refills Start Date End Date acetaminophen (Tylenol) Take 2 tablets by 0 07/2708/06/2020 500 mg Tablet mouth every 8 hours for 10 days. aspirin EC 81 mg Take 1 tablet by 60 tablet 0 07/27/2020 Tablet, Delayed Release mouth 2 times daily (E.C.) for 30 days. gabapentin (Neurontin) Take 1 capsule by 30 capsule 0 201908/26/2020 300 mg Capsule mouth nightly for 30 days. polyethylene glycoL Take 17 g by mouth 0 07/27/20 20 08/26/2020 (Miralax) 17 gram daily as needed (For Powder in Packet constipation) for up to 30 days. naproxen (NAPROSYN) 500 Take 1 tablet by 84 tablet 0 201909/07/2020 mg Tablet mouth 2 times daily (with meals) for 42 days. omeprazole (PriLOSEC) Take 1 capsule by 42 capsule 0 020 09/07/2020 20 mg Capsule, Delayed mouth daily for 42 Release(E.C.) days. senna (Senna) 8.6 mg Take 1 tablet by 0 0 08/26/2020 Tablet mouth 2 times daily as needed for Constipation for up to 30 days. oxyCODONE (Roxicodone) Take 1-2 tablets by 40 tablet 0 07/1509/28/2020 5 mg Tablet mouth every 4 hours as needed for Pain for up to 40 doses. documented as of this encounter Progress Notes Day Lawler RN - 07/27/2020 11:16 AM EST RN lunch relief To Pharmacy for RX When available AVS printed info reviewed with pnt Seen by case finisher [facility] set up Bobbi Hutchinson RN - 07/27/2020 11:02 AM EST This author reviewed a list of Home Health Agencies/DME vendors which serve their preferred geographic area. Affiliations were reviewed with them and they were educated about their right to choose where referrals are placed. Patient requests referral to [facility]. PHONE: [phone] FAX: [phone] Expected date of discharge: today Harriett Vizcaino RN - 07/27/2020 8:05 AM EST 0700: Assumed care of pt. Monitors on, alarms active and audible. Pt. Reports minimal pain 2/10, right hip dressing CDI, abductor pillow in place. 0800: Tolerating breakfast with no complaints. 1240: Pt's medications picked up from outpatient pharmacy and delivered to pt. AVS reviewed with pt.No questions at this time. Pt. Discharged via main entrance with all belongings. Walter Crenshaw MD - 07/27/2020 7:29 AM EST ORTHOPAEDIC SURGERY INPATIENT PROGRESS NOTE Patient Name: Dominick Castro Age: 64 y.o. Surgery/Issue: Left Total Hip Arthroplasty Revision for aseptic loosening Attending: Debbie Date of surgery: 07/26/2020 SUBJECTIVE / INTERVAL HISTORY: Remains in PACU pending floor availability. Had episode of bradycardia with low SBP post-operatively, improved with epi and repositioning. AFVSS this AM. Reports feeling well. Pain well controlled on current pain regimen. Denies numbness or tingling in RLE. FOCUSED REVIEW OF SYSTEMS: as above. Active Hospital Problems No active problems to display. Resolved Hospital Problems Diagnosis Date Resolved ??? History of total right hip arthroplasty 07/24/2020 Active Non-Hospital Problems Diagnosis ??? Obesity (BMI 30.0-34.9) ??? Chronic prescription opiate use ??? s/p revision L REGGIE 01/12/20 (Dr. Lewis) ??? Migraines ??? Rotator cuff tear MEDICATIONS: ??? BUpivacaine (PF) (MARCAINE) 0.25 % (2.5 mg/mL) injection ??? cloNIDine injection ??? ketorolac (Toradol) (30 mg/mL) injection ??? sodium chloride 0.9 % (flush) flush 5 mL ??? sodium chloride 0.9 % (flush) flush 5-20 mL ??? lidocaine (XYLOCAINE) 10 mg/mL (1 %) injection 3 mg ??? polyethylene glycoL (Miralax) packet 17 g ??? senna-docusate (Pericolace) 8.6-50 mg per tablet 2 tablet ??? lactulose (Chronulac) (0.67 gram/mL) oral liquid 10 g ??? bisacodyl EC (Dulcolax) tablet 10 mg ??? bisacodyL (Dulcolax) suppository 10 mg ??? acetaminophen (Tylenol) tablet 1,000 mg ??? gabapentin (Neurontin) capsule 600 mg FOLLOWED BY [START ON 07/28/2020] gabapentin (Neurontin) capsule 300 mg ??? ketorolac (Toradol) (15 mg/mL) injection 15 mg ??? celecoxib (CeleBREX) capsule 200 mg ??? dexamethasone (Decadron) tablet 4 mg ??? pantoprazole EC (Protonix) tablet 20 mg ??? sodium chloride 0.9% infusion ??? ceFAZolin (Ancef) 2 g in dextrose 5% 100 mL infusion ??? oxyCODONE (Roxicodone) tablet 5-15 mg ??? ondansetron (Zofran) tablet 4 mg OR ondansetron (ZOFRAN) injection 4 mg ??? aspirin EC tablet 81 mg ??? multivitamin with minerals (THERA-M) tablet 1 tablet ??? sodium chloride 0.9% 100 mL/hr (07/27/20 0633) OBJECTIVE: Temp: [36.3 ??C (97.3 ??F)-37.6 ??C (99.7 ??F)] Heart Rate: [41-77] Resp: [12-24] BP: (71-158)/(39-84) Intake/Output Summary (Last 24 hours) at 07/27/2020 0729 Last data filed at 07/27/2020 0633 Gross per 24 hour Intake 4581.6 ml Output 1650 ml Net 2931.6 ml Body mass index is 30.14 kg/m??. PE: General: NAD, awake/alert, pale but improved after a few minutes CV: RRR assessed peripherally Resp: Breathing comfortably on RA RLE: Dressing c/d/i. Motor intact to EHL, FHL, TA. Sensation intact in foot/calf/thigh. Brisk capillary refill distally. Lab Results Component Value Date NA 133 (L) 07/27/2020 K 3.9 07/27/2020 CL 102 07/27/2020 CO2 24 07/27/2020 BUN 14 07/27/2020 CREATININE 1.00 07/27/2020 GLUCOSE 167 07/27/2020 CALCIUM 7.9 (L) 07/27/2020 Lab Results Component Value Date WBC 10.0 (H) 07/27/2020 HGB 11.0 (L) 07/27/2020 HCT 32.9 (L) 07/27/2020 MCV 91.4 07/27/2020 PLATELET 164 07/27/2020 Lab Results Component Value Date INR 1.1 07/18/2020 Imaging: Post-op xrays: Xrays demonstrate revision femoral prosthesis in place with cerclage wire distal to and two cerclage wires surrounding proximal femur at site of extended trochanteric osteotomy. Hip appears reduced. No evidence of immediate post-operative complication. ASSESSMENT / PLAN: Dominick Castro is a 64 y.o. male 1 Day Post-Op s/p left REGGIE, progressing well with stable vitals. Plan to mobilize with PT this AM. Hgb this AM 11.0 which likely represents a combination of acute surgical blood loss anemia and hemodilution - patient asymptomatic, will continue to monitor. Activity: TDWB, enhanced precautions Closure: Resorbable sutures, steri strips Dressing: Gauze/tegaderm x 7 days Anticoagulation: ASA 81 mg BID for 30 days Antibiotics: Periop ancef Consults: PT/OT Dispo:Home vs rehab per PT Follow-up: 08/22/20 (scheduled) Walter Crenshaw MD 07/27/2020 Future Appointments Date Time Provider Department Center 08/22/2020 10:00 AM [facility] DX ROOM 3 Xray [facility] Rad 08/22/2020 11:00 AM Jack Lewis MD [facility] ORTH 3C [facility] Silvana Block MD - 07/26/2020 9:30 PM EST ORTHOPAEDIC SURGERY INPATIENT PROGRESS NOTE Patient Name: Dominick Castro Age: 64 y.o. Surgery/Issue: Left Total Hip Arthroplasty Revision for aseptic loosening Attending: Debbie Date of surgery: 07/26/2020 SUBJECTIVE / INTERVAL HISTORY: Denies CP, SOB, nausea, vomiting, numbness/weakness. Pain well controlled. Patient felt lightheaded and nauseated, bradycardic to high 30s with SBP70s. He was laid flat, givenephedrine, and 1L LR. He was mentating well throughout and VS recovered shortly thereafter. FOCUSED REVIEW OF SYSTEMS: as above. Active Hospital Problems No active problems to display. Resolved Hospital Problems Diagnosis Date Resolved ??? History of total right hip arthroplasty 07/24/2020 Active Non-Hospital Problems Diagnosis ??? Obesity (BMI 30.0-34.9) ??? Chronic prescription opiate use ??? s/p revision L REGGIE 01/12/20 (Dr. Lewis) ??? Migraines ??? Rotator cuff tear MEDICATIONS: ??? BUpivacaine (PF) (MARCAINE) 0.25 % (2.5 mg/mL) injection ??? cloNIDine injection ??? ketorolac (Toradol) (30 mg/mL) injection ??? sodium chloride 0.9 % (flush) flush 5 mL ??? sodium chloride 0.9 % (flush) flush 5-20 mL ??? lidocaine (XYLOCAINE) 10 mg/mL (1 %) injection 3 mg ??? polyethylene glycoL (Miralax) packet 17 g ??? senna-docusate (Pericolace) 8.6-50 mg per tablet 2 tablet ??? lactulose (Chronulac) (0.67 gram/mL) oral liquid 10 g ??? bisacodyl EC (Dulcolax) tablet 10 mg ??? bisacodyL (Dulcolax) suppository 10 mg ??? acetaminophen (Tylenol) tablet 1,000 mg ??? gabapentin (Neurontin) capsule 600 mg FOLLOWED BY [START ON 07/28/2020] gabapentin (Neurontin) capsule 300 mg ??? ketorolac (Toradol) (15 mg/mL) injection 15 mg ??? celecoxib (CeleBREX) capsule 200 mg ??? dexamethasone (Decadron) tablet 4 mg ??? pantoprazole EC (Protonix) tablet 20 mg ??? sodium chloride 0.9% infusion ??? ceFAZolin (Ancef) 2 g in dextrose 5% 100 mL infusion ??? oxyCODONE (Roxicodone) tablet 5-15 mg ??? ondansetron (Zofran) tablet 4 mg OR ondansetron (ZOFRAN) injection 4 mg ??? aspirin EC tablet 81 mg ??? multivitamin with minerals (THERA-M) tablet 1 tablet ??? sodium chloride 0.9% 100 mL/hr (07/26/20 185) OBJECTIVE: Temp: [36.3 ??C (97.3 ??F)-36.7 ??C (98.1 ??F)] Heart Rate: [41-77] Resp: [12-24] BP: (71-158)/(39-84) Intake/Output Summary (Last 24 hours) at 07/27/2020 0143 Last data filed at 07/26/2020 2356 Gross per 24 hour Intake 3170 ml Output 1000 ml Net 2170 ml Body mass index is 30.14 kg/m??. PE: General: NAD, awake/alert, pale but improved after a few minutes CV: RRR assessed peripherally Resp: Breathing comfortably on RA RLE: Dressing c/d/i. Motor intact to EHL, FHL, TA. Sensation intact in foot/calf/thigh. Brisk capillary refill distally. Lab Results Component Value Date NA 137 07/18/2020 K 4.0 07/18/2020 CL 102 07/18/2020 CO2 24 07/18/2020 BUN 14 07/18/2020 CREATININE 1.07 07/18/2020 GLUCOSE 91 07/18/2020 CALCIUM 9.3 07/18/2020 Lab Results Component Value Date WBC 10.4 (H) 07/26/2020 HGB 13.0 (L) 07/26/2020 HCT 38.9 (L) 07/26/2020 MCV 90.3 07/26/2020 PLATELET 178 07/26/2020 Lab Results Component Value Date INR 1.1 07/18/2020 Imaging: AP Pelvis There is no evidence of intra-op fracture. ASSESSMENT / PLAN: Dominick Castro is a 64 y.o. male 1 Day Post-Op s/p left REGGIE, progressing well with stable vitals. Activity: TDWB, enhanced precautions Closure: Resorbable sutures, steri strips Dressing: Gauze/tegaderm Anticoagulation: ASA 81 mg BID for 30 days Antibiotics: Periop ancef Consults: PT/OT Dispo:Home vs rehab per PT Follow-up: 08/22/20 (scheduled) Silvana Block MD 07/27/2020 Future Appointments Date Time Provider Department Center 08/22/2020 10:00 AM [facility] DX ROOM 3 MH Xray [facility] Rad 08/22/2020 11:00 AM Jack Lewis MD [facility] ORTH 3C [facility] Dominique Cuellar, CHAZ - 07/26/2020 6:41 PM EST Pt to PACU via bed from OR; monitors applied, alarms set and audible. MD Karina at bedside requests pt be straight cathed on arrival. Pt bladder scanned for 502ml. Pt straight cathed by this RN. Pt tolerated well. Pt pain controlled on arrival. Pt has a right hip dressing in place, CDI on arrival. Post op labs collected and sent. 1855 - Portable XR at bedside. documented in this encounter H&P Notes Jack Lewis MD - 07/26/2020 12:17 PM EST H&P reviewed. No changes noted. Respiratory effort at baseline. Patient appears well perfused. Proceed as planned. documented in this encounter Nursing Notes Lorrie Marlow RN - 07/26/2020 8:37 PM EST 195-Pt was sitting up in bed looking for his cell phone in his bag when he stated he was feeling lightheaded and nauseous. His HR went to 39 and BP was 71/39. MD Armenta paged and made aware and was coming to the bedside. MD Dumont at the bedside and gave ephedrine and 1L LR bolus with good effect.Pt states he was feeling better. 0545-MD Armenta made aware of Na 133 and Ca 7.9 this morning documented in this encounter Miscellaneous Notes Op Note - Jack Lewis MD - 07/27/2020 12:43 PM EST [facility] Operative Note Patient Name: Dominick Castro : [id number] MR#: [id number] Case Date: 07/26/2020 - 07/27/2020 Surgeon: Surgeon(s) and Role: * Jack Lewis MD - Primary * Walter Crenshaw MD - Fellow * Pramod Collins MD - Resident Preoperative diagnosis: Aseptic Loosening Right REGGIE Postoperative diagnosis: 1. ??Aseptic Loosening Right Femoral stem 2. 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 ??Extensive proximal femoral osteolysis Procedure(s) (LRB): @TOTAL HIP REVISION ARTHROPLASTY, COMPLETE (WRVU 30.28) (Right) MODIFIER PINNACLE ACETABULUM DEPUY (N/A) MODIFIER RECLAIM DEPUY (Right) Modifiers: 22: Increased procedural services Anesthesia: Spinal Estimated Blood Loss: 500 mL Specimens removed during surgery: Order Name Source Comment Collection Info Order Time SPECIMEN TO PATHOLOGY Aseptic Loosening Right REGGIE left hip synovium resection 07/26/2020 2:46 PM Time specimen removed from patient: 2:46 PM Number of tissue samples (in container) 1 Drains: * No LDAs found * Surgical Closure: Primary Closure - skin incision is completely closed without any wires, gisella, drains or other devices Disposition: aroused from sedation, and taken to the recovery room in a stable condition Condition: doing well without problems (Please see the Surgical Encounter Summary for any Implant and Specimen details pertinent to this patient.) HPI/Surgical Indications: Dominick Castro is a 64-year-old male who underwent bilateral total hip arthroplasty in [address] Jonh Christensen utilizing modular wgykr-se-jgyeg bearings. Approximately 2 years ago imaging was obtained during routine follow-ups which demonstrated significant new osteolysis around both proximal femurs. At that point the patient was asymptomatic and declined surgical intervention. In July 2019 the patient presented again now with new onset of left proximal thigh pain which was worse with weightbearing. X-rays demonstrated progression of the osteolysis around the leftproximal femur. Inflammatory markers were checked and were benign with a CRP of 2.0 mg/L and a sed rate of 6 mm/h. [place] and chromium were both elevated with a chromium of 1.7 ng/mL and a cobalt of 5.6 ng/mL. Given the mvbwr-gq-nfnom articulations, his elevated metal ions, and new pain I recommended revision of his left total hip arthroplasty. This was done on 01/12/20 and intra-operative findings were consistent with severe metal reaction in the proximal femur. The left stem was grossly loose. He recovered well from the left hip and is now experiencing symptoms on the right similar in severity andquality. We again reviewed the risks of revision arthroplasty including infection, limb length discrepancy, hip instability, fracture, and continued metal ion generation due to the presence of his retained right gvkxm-gj-yohhc hip. We also discussed potential need for blood transfusion, blood clots and pulmonary embolism, and medical complications up to and including . Despite these risks the patient wished to proceed with a right revision total hip arthroplasty and informed consent was signed in clinic. ?? Findings:??Dark metal stained fluid aspirated from joint prior to arthrotomy and sent for STAT cell count and standard culture. Cell count returned as 1928 nucleated cells. Differential was 60% PMNs. ??There was necrotic friable joint capsule encountered but no involvement of the abductor. ??There wasmassive proximal femoral bone loss from osteolysis and metallosis and although the stem could be moved proximally within the bone it remained potted distally. Due to the poor proximal bone quality I elected to perform an ETO to avoid unplanned fracture. ??Significant amount of friable necrotic osteolytic bone was removed from proximal femur. ??Acetabular component was well fixed. ??There was significant backside corrosive wear seen on the Ultamet CoCr liner and on the inner surface of the acetabulum. ??Complete synovectomy performed. ??With new femoral stem in place the hip was stable to 90/10/70. ?? Procedure Description: The patient was identified in the preoperative holding area where his historyand physical and surgical consent were reviewed and confirmed. His right hip was again identified asthe operative site and this was marked with a green united keetoowah per [facility] protocol. The patient was brought to the operating room and spinal anesthesia was administered without complication. The patient was then positioned in the right lateral decubitus position with all bony prominences well-padded and an axillary roll placed under the rib cage to take pressure off his brachial plexus. His pelvis was secured to the table with articulating clamps. Leg lengths were checked prior to positioning as well as in the lateral decubitus position to confirm preoperative limb alignment. The patient was administered2 g of intravenous cefazolin as well as weight-based 15 mg/kg tranexamic acid prior to incision. A surgical timeout was held to confirm the patient's identity, the planned surgical procedure including site and laterality and to address any safety concerns. There were no safety concerns and all partiesagreed to proceed. ?? Patient's right lower extremity was then circumferentially prepped with chlorhexidine soap, alcohol,and ChloraPrep and was draped in standard sterile fashion using an Aufranc technique to isolate the perineum. ?? We began by excising the patient's previous posterior scar using a double runner technique. The incision was extended approximately 5 cc distal and 3 cc proximal. Sharp dissection was carried to the subcutaneous tissue until the iliotibial fascia was reached. Self-retaining retractors were placed to aid with visualization. Adherent fat was elevated off the iliotibial fascia with a Manley. Bovie cauterywas used to obtain hemostasis. A heavy Pablo scissor was then used to split the iliotibial fascia in line with the skin incision and the gluteus darlyn muscle belly was bluntly spread. A Charnley retractor was placed to aid in visualization. We palpated the sciatic nerve and dissected down to identify its location. Once the nerve was identified it was felt to be well medial to the operative field andwas not further dissected. It was protected throughout the case from excessive traction and compression. The proximal third of the gluteus darlyn tendon was identified and was released from its insertion. Any bleeding was meticulously controlled with the Bovie. ?? The hip was then aspirated for 20 cc of dark black metal stained fluid. This was free-flowing and nonpurulent. This was sent for stat cell count as well as culture. The cell count returned after the surgery with 1928 nucleated cells and 60% PMNs. Substantial metal debris was again noted on the cell count. ?? A posterior arthrotomy was then performed beginning in a subperiosteal dissection off the back of the proximal femur. At the tip of the trochanter return 45 degrees along the posterior border of the abductor down onto the acetabulum. A full-thickness posterior capsulotomy was performed. The remaining capsule and synovium was necrotic and friable with metal staining. The posterior capsular flap was debulked of all necrotic synovium down to the posterior border of the acetabular component. We were then able to gently dislocate the hip posteriorly. The femoral head was removed with a bone tamp and mallet. The proximal femur was full of necrotic friable bone and soft tissue. Flexible chisels and anirudh instruments were passed around the femoral stem circumferentially and an SROM loop extractor was used to backslap the stem, but it remained distally fixed. Due to the poor proximal bone quality and my concern for fracture, I decided to perform an extended trochanteric osteotomy to gain better access to the stem. The distal skin incision was extended 5cm with a scalpel. A raphe of the fascia over the vastus lateralis at the middle and posterior third was cut with the pablo scissor and blunt dissection was carried through the lateralis with a manley until the lateral femur was encounter. A wire passer was used to place a prophylactic cerclage wire approximately 13cm from the tip of the greater trochanter. A microsaggital saw was then used to make the distal cut at 12cm angled at 45 degrees to avoid stress risers. The lateral 1/3 of the femur was cut and then the saw was used to make the cut along the posterior proximal femur exiting at the neck cut. An osteotome was used to propagate the anterior osteotomy under the abductor and the trochanter was elevated with osteotomes. There was no fixation of the femoralstem but for the most distal 5cm and this was then disrupted wth chisels and osteotomes and the stemwas removed with the loop extractor. ?? Attention turned to the acetabulum. We then placed a cobra retractor over the anterior column and gently retracted the femur anteriorly. A complete anterior, superior, and inferior synovectomy was performed removing all necrotic material. The Ultamet liner extractor tool was then placed into 1 of the anti-rotation notches on the [place] cup and the liner was easily removed. The cup was vigorously challenged with a bone tamp and a mallet and no micromotion or fluid wave was seen. The acetabulum was thoroughly irrigated with pulse lavage normal saline and any corrosion material in the acetabulum wasremoved with a sponge on a stick. I ensured that the entire rim of the cup was exposed and then impacted a new 58 mm x 40 mm neutral alignment polyethylene and noted the locking mechanism to fully engage. The acetabular retractors were then removed and attention returned to the femur. ?? Reverse Anirudh curettes were used to meticulously debride the necrotic material from the proximal femur. A long 6 mm drill was used to break through the distal pedestal and open the distal femoral canal. A ball-tipped guidewire was then passed and beginning with an 8.5 mm flexible reamer the canal was reamed sequentially to open the pedestal up to a 13 mm reamer. Two additional gisela wires were passed around the proximal femur and the osteotomy was reduced and the wires were tightened, cut, and locked. The 14 mm straight reclaim reamer was then passed on hand to the 85 mm depth at the tip of the greater trochanter. The proximal cleanout reamer was used to prepare the proximal femur for the reamer handles. We then began sequentially reaming beginning with a 15 mm straight reamer on power up to a19 mm reamer to the appropriate 85 mm depth. We had excellent endosteal contact and squeal with a 19mm reamer. We then impacted a 140 mm x 19 mm reclaim distal stem which sat at the appropriate depth with excellent axial and rotational stability. ?? The proximal alignment josué was attached and tightened. We then used the proximal reamers to prepare for the proximal body first with a 20 mm size and then the 24 mm size to ensure appropriate offset. An 85 mm x 24 mm proximal body was assembled and attached to the distal stem with 20 degrees of anteversion and tightened. A 40 mm +1.5 mm trial head was attached to the trunnion and this was attempted to be reduced into the cup. This could not be reduced and so we assembled 75mm x 24mm proximal body and this was attached with the 40mm + 1.5mm head trial and the hip was then reduced. Leg lengths were assessed and were appropriate. Hip stability was checked and the hip was stable at 90 degrees of flexion, 10 degrees of abduction, and 70 degrees of internal rotation. There was no shock in the soft tissue envelope was appropriately tensioned. Satisfied with the hip alignment and stability the hip was gently dislocated and the trial components were removed. The real 75 mm x 24 mm proximal body was opened and was impacted over the distal stem. The [place] taper was appropriately engaged according to facilities engineer instructions. The locking bolt was inserted and tightened to the appropriate torque. A 40 mm+1.5 mm ceramic head with inner titanium sleeve was then impacted onto the cleaned and dried trunnion. 30 cc of cancellus bone chips were opened and were packed around the proximal femur as bone graft.The hip was then thoroughly irrigated and gently reduced. Leg lengths and hip stability were again checked and confirmed. ?? The posterior capsule, gluteus darlyn, and abductor were injected with 50 cc of local anesthetic cocktail consisting of quarter percent Marcaine, 50 mcg of clonidine, and 30 mg of Toradol. A #1 vicrylrunning suture was used to close the fascia of the vastus lateralis and the insertion of the GMax. The posterior capsule was reapproximated to the proximal femur using a #3 Vicryl through transosseous tunnels. The iliotibial band was closed with interrupted #1 Vicryl and was oversewn with a #2 barbed running strata fix suture. The deep subcutaneous tissues were closed with a running 0 Vicryl suture. Interrupted 2-0 Vicryl was used to close the superficial subcutaneous tissue and the skin was closed with a running 3-0 Monocryl suture and steristrips. A sterile tegaderm and gauze dressing was applied. The patient was placed into an abduction pillow, aroused from anesthesia and taken to the recovery area in stable condition having suffered no apparent complications. All needle and sponge counts were correct at the conclusion of the case. Seth Crenshaw MD was critical for patient positioning and retraction during the case as well as assisting with closure because no other additional qualified resident was available. Attestation: Case Date: 07/26/2020 - 07/27/2020 I was present and I participated during the entire procedure (does not need to include opening and closing). Jack Lewis MD 07/27/2020 Implant Name Type Inv. Item Serial No. Cylinder Press Operator Lot No. LRB No. Used Action WIRE FIXATION [id number] ANT CERV FUSN SS ([id number]) - [id number] IMPLANTS WIRE FIXATION [id number] ANT CERV FUSN SS ([id number]) PRAVEEN BIOMET - PRAVEEN BIO Right 3 Implanted LINER ACET HIP [id number] STND POLY PINNACLE ALTREX ([id number]) (AUTOREQ) - [id number] IMPLANTS LINER ACET HIP [id number] STND POLY PINNACLE ALTREX ([id number]) (AutoReq) Term[employer]out NABOR [id number] Right 1 Implanted STEM FEMORAL MODULAR HIP [id number] DISTAL STRAIGHT PRSFT TI ([id number]) (AUTOREQ) - [id number] IMPLANTSSTEM FEMORAL MODULAR HIP [id number] DISTAL STRAIGHT PRSFT TI ([id number]) (AutoReq) [employer] NABOR [id number] Right 1 Implanted HEAD FEMORAL HIP 40MM +1.5MM OFFSET 12/14 TPR CERAMIC ([id number]) (AUTOREQ) - [id number] IMPLANTS HEADFEMORAL HIP 40MM +1.5MM OFFSET 12/14 TPR CERAMIC ([id number]) (AutoReq) [employer] NABOR [id number] Right 1 Implanted STEM FEMORAL CONE BODY HIP [id number] PROX POR OFST TI RECLAIM ([id number]) (AUTOREQ) - [id number] IMPLANTS STEM FEMORAL CONE BODY HIP [id number] PROX POR OFST TI RECLAIM ([id number]) (AutoReq) [employer] NABOR [id number] Right 1 Implanted GRAFT BONE FILLER [id number] FROZEN CHIPS READIGRAFT ([id number]) (AutoReq) - [id number] IMPLANTS GRAFTBONE FILLER [id number] FROZEN CHIPS READIGRAFT ([id number]) (AutoReq) [facility] [phone] Right 1 Implanted Plan of Care - Lincoln Philip OT - 07/27/2020 9:50 AM EST Occupational Therapy Evaluation Patient profile: Pt seen for evaluation s/p Right Total Hip Arthroplasty Revision for aseptic loosening seen in PACU. Past Medical History: Diagnosis Date ??? Chronic [...] 30.28) performed by Jack Lewis MD at [facility] MAIN OR Social History: Patient lives w/ his (2 wks off), son (15) and daughter (26, disabled). Home Setup: 1 GENNARO, once in the pt is set up on one level. Pt plans to sleep in a recliner. His bathroom down stairs is a low tub shower and pt reports he has a high toilet. 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 Precautions/Special Considerations: TDWB RLE, fall, enhanced hip precautions Subjective: I will have a chair in shower. Objective: Seen today for OT evaluation and education re: ADL/IADL manage post op. Cognitive Status/Behavior: alert, oriented to person, place, and time Range of motion, strength, coordination: Bilateral UEs are within functional limitations LLE WFL for ADL, RLE decreased strength, ROM, flexibility Sensation: subjectively intact to baseline Activities of Daily Living: Self-feeding: N/A-Independent with set up Hygiene/grooming: Pt educated on the importance of maintaining TDWB during standing ADL tasks, pt verbalized understand: declined to perform grooming task; however, verbalized and demonstrated understanding as pt donned mask in standing position maintaining WBing status. Upper and lower body dressing and bathing: Pt reports he has sock aid at home and will continue to use as he verbalized understanding of precautions. Pt donned underpants/pants w/ use of accounting representative, initial verbal cue for modified technique. Pt educated on tub transfer, pt verbalized understanding and fam iliarity: pt educated on the need for shower chair, pt verbalized the need for shower chair and willhave one in place for bathing. Toileting: Pt educated on standing for opal-care due to enhanced precautions, pt verbalized understanding. Pt demonstrated the ability to sit<>stand from toilet level. Functional Mobility: Supine to sit: conditional independence Sit to stand: conditional independence w/ crutches, initial verbal cue for technique/kickout of RLE Ambulation: conditional independence with crutches, 120'; pt tending to maintain NWB>TDWB: pt educated on importance of progressing to foot flat on floor to avoid flexion contracture of hip/knee, ptverbalized understanding Stand to sit: conditional independence w/ crutches, initial verbal cue for technique Balance: steady with use of crutches. IADL???s: Assistance available to patient. Pain: 09/23 R hip. Education: family and patient have been educated on Role of occupational therapy/rehabilitation, Transfers, ADL, Safety, Precautions/Protocol, Functional Mobility, Activity pacing/Energy conservation, Home Management, Recommendations and Discharge planning and verbalizes understanding. Patient status, treatment, and mobility recommendations discussed with nursing. Assessment: Pt has been seen for occupational therapy evaluation. Dominick Castro presents with the following performance skill deficits and client factors: increased pain, decreased activity tolerance,decreased flexibility/ROM, decreased strength, decreased sitting/standing balance, precautions/bracing and compromised mobility status. These performance deficits have led to activity limitations and participation restrictions in the following areas of occupation: dressing, bathing, grooming, toileting, transfers/mobility, rest/sleep, home management, leisure, driving and community mobility. However,despite the deficits listed above pt demonstrates the ability to perform bed mobility, don underpants/pants w/ use of AE, functional mobility w/ use of crutches, and standing task while maintaining TDWB. Pt educated extensively on the importance of maintaining TDWBing and enhanced precautions during rote ADL tasks, pt verbalized/demosntrated understanding. Anticipate that pt will return home with assistance of his family once medically ready. Do not anticipate further OT needs while hospitalized. Equipment needs at discharge: None Anticipated Discharge Disposition: home with assist, home with home health Plan: Monitor pt until formal d/c. Eval Date: 07/27/2020 Total Evaluation Minutes, Occupational Therapy: 33(eval + sc) 2017 OT Evaluation Code Rationale: ?? Diagnosis & Pertinent Co-Morbidities affecting Plan of Care: see PMHx ?? Occupational Profile & Client History: Brief Expanded Extensive x ?? Assessment of Occupational Performance: 1-3 performance deficits 3-5 performance deficits x 5 + performance deficits ?? Clinical Decision Making: Low Moderate High x Clinical decision making of moderate complexity using standardized patient assessment instrument andmeasurable assessment of functional outcome. Pager: [phone] Lincoln Philip, OT 07/27/2020 Occupational Therapy Rehabilitation Department Plan of Care - Luli Perez, PT - 07/27/2020 9:46 AM EST Physical Therapy Evaluation Patient profile: Dominick Castro is a 64 y/o male s/p Left Total Hip Arthroplasty Revision for aseptic loosening Patient with the following active problems: Past Medical History: Diagnosis Date ??? Chronic [...] 30.28) performed by Jack Lewis MD at [facility] MAIN OR Social History: Home setup: Pt lives with his , daughter and teenaged son in a home with 1 GENNARO and a first floor setup available. Pt can sleep in a recliner. The downstairs bathroom has a tub shower with grab bars and an elevated toilet Baseline Mobility/Prior level of function: Independent with mobility, ADLs and IADLs. Enjoys spending time outdoors, camping and hunting. 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 Pain: 09/23, R hip ??? Vital Signs: HR 77bpm, SpO2 95% on RA; BP 138/74, 147/86 ?? Mental status: alert, oriented, cooperative ?? Safety Awareness: WFL ?? Command followin% of the time ?? Attention: WFL ?? Musculoskeletal: ROM: B LEs WFL Strength: B LEs WFL ?? Bed Mobility: Supine to Sit: modified independent, HOB raised ~30 degrees Sit to Supine: NA ??? Transfers: Sit to Stand: modified independent while maintaining R LE TDWB, axillary crutches Stand to Sit: modified independent, axillary crutches Bed to Chair: modified independent, axillary crutches ??? Gait: Distance: 150ft Device used: axillary crutches Level of assist: Modified independent Gait mechanics: Steady with crutches, 3 point gait pattern while maintaining R LE TDWB. Pt initiallyrequired verbal cues/demonstration for sequencing and to increase L foot clearance/avoid sliding L foot on the floor during swing phase. ??? Stairs: Pt ascended and descended one 6 platform step with axillary crutches and supervision while maintaining R LE TDWB following demonstration by therapist ??? Seated Balance: Static: normal Dynamic: normal ??? Standing Balance: Static: good with crutches Dynamic / Gait: Good with crutches ?? Education: patient has been educated on Transfers, Assistive device/technique, Stairs, Safety , Precautions/protocol, Gait , Activity pacing/Energy conservation, Role of therapy and Discharge planning and verbalizes and demonstrates understanding. Patient status, treatment, and mobility recommendations discussed with nursing. Assessment: Pt seen today for physical therapy initial evaluation. Pt presents with R hip pain, decreased R hip ROM/flexibility, decreased strength, enhanced hip precautions and R LE TDWB precautions. Despite these impairments pt performed bed mobility, transfers, ambulation, stair negotiation safely and independently, although he benefited from verbal cues and demonstration for correct crutch sequencing. Pt is cleared by physical therapy. Recommend d/c home with family assistance and outpatient PT when medically stable. Pt will benefit from follow up physical therapy to address the above impairments and facilitate return to OF. Discharge Recommendations: Based on the current findings, Anticipated Discharge Disposition: home with assist, home with outpatient services when medically ready for hospital discharge. Consult Recommendations: No other consults recommended at this time. Equipment needs: Patient has all necessary equipment Goals: achieved during eval Plan: Therapy Frequency: evaluation only 2017 PT Evaluation Code Rationale: ?? Diagnosis & Pertinent Co-Morbidities, personal factors, and present illness affecting Plan ofCare: (see above); Additional personal factors or co- morbidities that impact plan: ?? Total # of Factors: 0 1-2 3+ X (s/p R REGGIE revision, previous hip surgeries, R LW TDWB with enhanced precs) ?? Examination of body system impairments, functional limitations and behaviors, and/or participation restrictions. Addressing 1-2 elements Addressing 3 + elements X Addressing 4 + elements ?? Clinical presentation: See assessment above. Stable/Uncomplicated Evolving/Fluctuating Symptoms Unstable/Unpredictable X ?? Clinical decision making of low complexity based on pt's functional performance as outlined in this evaluation. Time IN / OUT: 1021-7367 Total Evaluation Minutes, Physical Therapy: 39(eval + GTx1) Luli Perez PT DPT 07/27/2020 Pager: [phone] Physical Therapy Inpatient Rehabilitation Department Brief Op Note - Jack Lewis MD - 07/26/2020 5:23 PM EST Brief Operative Note Patient Name: Dominick Castro : [id number] MR#: [id number] Case Date: 07/26/2020 Surgeon: Surgeon(s) and Role: * Jack Lewis MD - Primary * Walter Crenshaw MD - Fellow * Pramod Collins MD - Resident Preoperative diagnosis: Aseptic Loosening Right REGGIE Postoperative diagnosis: 1. Aseptic Loosening Right Femoral stem 2. 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 Extensive proximal femoral osteolysis Procedure(s) (LRB): @TOTAL HIP REVISION ARTHROPLASTY, COMPLETE (WRVU 30.28) (Right) MODIFIER PINNACLE ACETABULUM DEPUY (N/A) MODIFIER RECLAIM DEPUY (Right) Modifiers: 22: Increased procedural services Anesthesia: Spinal Findings: Dark metal stained fluid aspirated from joint prior to arthrotomy and sent for STAT cell count and standard culture. Cell count returned as 1928 nucleated cells, with 60% PMNs.??There was necrotic friable joint capsule encountered but no involvement of the abductor. ??There was extensive proximal femoral osteolysis with a significant amount of friable necrotic osteolytic bone removed from proximal femur. ??Despite the proximal bone loss the stem was potted distally and could not be removedwithout significant concern for fracture, so an ETO was made to preserve proximal bone. Acetabular component was well fixed. ??There was significant backside corrosive wear seen on the Ultamet CoCr liner and on the inner surface of the acetabulum. ??Complete synovectomy performed. ??With new femoral stem in place the hip was stable to 90/10/70. Complications: none Intake: Intraprocedure Crystalloid Total Intake lactated ringers infusion 1000.00 mL Total Intake 1000 mL Output Blood Loss 500 mL Total Output 500 mL Net Net Volume 500 mL Transfusion No data found in the last 1 encounters. Output: Estimated Blood Loss: 500 mL Urine Output:: (no urine output recorded) Other Output: (no other output recorded) Drains: none Specimens removed during surgery: Order Name Source Comment Collection Info Order Time SPECIMEN TO PATHOLOGY Aseptic Loosening Right REGGIE left hip synovium resection 07/26/2020 2:46 PM Time specimen removed from patient: 2:46 PM Number of tissue samples (in container) 1 PATHOLOGY ORDER UPDATE 07/26/2020 2:50 PM Additional information: Correction Enter requested changes: RIGHT hip synovium eD-H Order Id number [id number] Disposition: aroused from sedation, and taken to the recovery room in a stable condition Condition: doing well without problems Seth Crenshaw MD was critical for patient positioning and retraction during the case as well as assisting with closure because no other additional qualified resident was available. Attestation: Case Date: 07/26/2020 I was present and I participated during the entire procedure (does not need to include opening and closing). (Please see the Surgical Encounter Summary for any Implant and Specimen details pertinent to this patient.) Infection Bundle used? N/A documented in this encounter Plan of Treatment Upcoming Encounters Date Type Specialty Care Team Description 07/08/2022 Office Visit Radiation Oncology Shelley Kimble APRN [facility] [place] [address] (Wo rk) documented as of this encounter Procedures Procedure Name Priority Date/Time Associated Comments Diagnosis HEMOGRAM Routine 07/27/2020 4:10 AM Results f or this EST procedure are i n the results section. DIFFERENTIAL, Routine 07/27/2020 4:10 AM Results for this AUTOMATED EST procedure are i n the results section. HC CBC,PLT & AUTO Routine 07/27/2020 4:10 AM DIFF EST BASIC METABOLIC PANEL Routine 07/27/2020 4:10 AM Results for this (NON-FASTING) EST procedure are in the results section. XR FEMUR 2 VIEWS Routine 07/26/2020 7:17 PM Resul ts for this RIGHT EST procedure are i n the results section. XR PELVIS Routine 07/26/2020 7:17 PM Results f or this EST procedure are i n the results section. HC HEMOGRAM Routine 07/26/2020 6:27 PM Results f or this EST procedure are i n the results section. SURGICAL PATHOLOGY Routine 07/26/2020 2:46 PM Res ults for this REPORT EST procedure are i n the results section. SPECIMEN TO PATHOLOGY Routine 07/26/2020 2:46 PM Results for this EST procedure are i n the results section. HC JOINT CULTURE Routine 07/26/2020 2:35 PM EST JOINT CULTURE Routine 07/26/2020 2:35 PM Results for this EST procedure are i n the results section. ANAEROBIC CULTURE Routine 07/26/2020 2:35 PM Resu lts for this EST procedure are i n the results section. HC BODY FLUID CELL CT STAT 07/26/2020 2:35 PM Results for this W/DIFF EST procedure are i n the results section. MODIFIER RECLAIM 07/26/2020 1:56 PM Aseptic Loosening DEPUY EST Right REGGIE MODIFIER PINNACLE 07/26/2020 1:56 PM Aseptic Loosening ACETABULUM DEPUY EST Right REGGIE @TOTAL HIP REVISION 07/26/2020 1:56 PM Aseptic Looseni ng ARTHROPLASTY, EST Right REGGIE COMPLETE (WRVU 30.28) IMPLANTABLE DEVICES 07/26/2020 12:00 Resu lts for this SCAN AM EST procedure are i n the results section. documented in this encounter Results (ABNORMAL) Differential, Automated (07/27/2020 4:10 AM EST) [facility] Method Time Signature Neutrophils % 79.7 % [facility] Neutr Abs (ANC) 7.96 (H) 1.70 - [facility] 6.10 [facility] x10(3)/[facility] LABORATORY Lymphocytes % 12.8 % [facility] Lymphocytes Abs 1.3 0.9 - 3.2 [facility] x10(3)/[facility] LABORATORY Monocytes % 6.8 % [facility] Monocyte Abs 0.7 0.3 - 0.9 [facility] x10(3)/[facility] LABORATORY Eosinophils % 0.1 % [facility] Eosinophils Abs 0.0 0.0 - 0.4 [facility] x10(3)/[facility] LABORATORY Basophils % 0.2 % [facility] Basophils Abs 0.0 0.0 - 0.1 [facility] x10(3)/[facility] LABORATORY Immature Gran % 0.40 % [facility] Comment: Immature granulocytes(IG's)percentage an d absolute count will include metamyelocytes, myelocytes, and promyelo cytes. Blood smears from CBCs yielding IG's will be scanned manually for concor dance. If this scan disagrees with the automated IG or if promyelocytes are not ed, a manual differential will be performed. Sarai Gran Abs 0.04 0.00 - 0.04 x10(3)/[facility] MAR Y [facility]ORY Specimen Anatomical Collection Method Collection Time Receive d Time (Source) Location / / Volume Laterality Blood specimen 07/27/2020 4:10 AM 020 4:26 (specimen) EST AM EST Resulting Agency Comment Spec In Lab Silvana Block MD HEMATOLOGY ORDERABLES Performing Organization Address City/State/[place] [address] (ABNORMAL) Hemogram (07/27/2020 4:10 AM EST) Analysis Performed At Patho logist Time Signature WBC 10.0 (H) 4.0 - 9.5 [facility] x10(3)/[facility] LABORATORY RBC 3.60 (L) 4.58 - [facility] 5.54 [facility] x10(6)/[facility] LABORATORY Hemoglobin 11.0 (L) 13.7 - [facility] 16.[facility] gm/dL [facility] Hematocrit 32.9 (L) 40.5 - [facility] 48.5 % [facility] MCV 91.4 82.9 - [facility] 93.1 fL [facility] MCH 30.6 27.5 - [facility] 32.1 pg [facility] MCHC 33.4 32.0 - [facility] 35.[facility] gm/dL [facility] Platelets 164 145 - 357 [facility] x10(3)/[facility] LABORATORY RDWSD 47.0 (H) 36.0 - [facility] 45.0 [facility] LABORATORY RDWCV 14.0 (H) 11.4 - [facility] 13.8 % [facility] MPV 12.2 7.6 - 12.9 [facility] LABORATORY nRBC % Auto 0.0 % [facility] nRBC Abs Auto 0.000 0.000 - [facility] 0.000 [facility] x10(3)/[facility] LABORATORY Specimen Anatomical Collection Method Collection Time Receive d Time (Source) Location / / Volume Laterality Blood specimen 07/27/2020 4:10 AM 020 4:26 (specimen) EST AM EST Resulting Agency Comment Spec In Lab Silvana Block MD HEMATOLOGY ORDERABLES Performing Organization Address City/State/[place] [address] (ABNORMAL) Basic Metabolic Panel (non-fasting) (07/27/2020 4:10 AM EST) P athologist Signature Glucose Lvl 167 65 - 199 [facility] mg/dL [facility] Comment: Diabetes: >=200 mg/dL plus symp toms BUN 14 10 - 20 mg/dL [facility] Creatinine 1.00 0.80 - 1.50 mg/dL [facility] Sodium 133 (L) 135 - 145 mmol/L [facility] Potassium 3.9 3.5 - 5.0 mmol/L [facility] Comment: Please note: ??Patients with WBC >100,00 0 may have falsely elevated Potassium levels. ??For accurate Potassium quantif ication in these patients send serum separator tube (gold top) for subsequent determinations. ??Contact the Clinical Chemistry Laboratory if there are any qu estions. Chloride 102 98 - 107 mmol/L [facility] CO2 24 22 - 31 mmol/L [facility] Anion Gap 7 5 - 15 mmol/L [facility] Calcium 7.9 (L) 8.5 - 10.5 mg/dL [facility] Estimated GFR 79 >=60 mL/min/1.73 m?? [facility] Comment: The eGFR was calculated using the CKD-EP I equation. As with all creatinine based estimates of kidney function, eGFR values calculated with the CKD-EPI equation are not accurate in patients wi th acute kidney failure, extremes of body mass or the acutely ill. http://[employer]/[facility] eGFR 91 >=60 mL/min/1.73 m?? [facility] Comment: The eGFR was calculated using the CKD-EP I equation. As with all creatinine based estimates of kidney function, eGFR values calculated with the CKD-EPI equation are not accurate in patients wi th acute kidney failure, extremes of body mass or the acutely ill. http://[employer]/[facility] Specimen Anatomical Collection Method Collection Time Receive d Time (Source) Location / / Volume Laterality Blood specimen 07/27/2020 4:10 AM 020 4:26 (specimen) EST AM EST Resulting Agency Comment Spec In Lab Jack Lewis MD CHEMISTRY ORDERABLES Performing Organization Address City/State/[facility] [place] [address] XR Femur 2 views Right (Generic) (07/26/2020 7:17 PM EST) Anatomical Region Laterality Modality Thigh Right Digital Radiography Specimen (Source) Anatomical Location Collection Method / Collectio n Time Received Time / Laterality Volume Impressions 07/26/2020 10:08 PM EST FINDINGS/IMPRESSION: Patient is status post right total hip arthroplasty with carcelage wires longer femoral stem. Res idual lucency at the proximal femoral stem component. No immediate postoperati ve complication. Alignment and positioning remains stable. Postsurgical changes are noted in the overlying soft tissues. Pelvic radiograph demonstrates no acute fracture. Redemonstration of periprosthetic lucency around the left f emoral stems remain stable when compared to the prior study dated 02/08/2020. Thank you for letting us participate in the care of this patient. For questions regarding this report, please contact e number below. ? Electronically signed by: Darling De La Garza MD, [facility] ([phone]), at 07/26/2020 10:08 PM Narrative 07/26/2020 10:08 PM EST EXAMINATION: XR PELVIS (GENERIC), XR FEMUR 2 VIEWS RIGHT (GENERIC) CLINICAL HISTORY: s/p revision REGGIE. ??Th anks! TECHNIQUE: AP pelvis, and 4 radiographs of view. COMPARISON: 02/08/2020 Procedure Note Darling De La Garza MD - 07/26/2020Formatt ing of this note might be different from the original. EXAMINATION: XR PELVIS (GENERIC), XR FEM UR 2 VIEWS RIGHT (GENERIC) CLINICAL HISTORY: s/p revision REGGIE. Than ks! TECHNIQUE: AP pelvis, and 4 radiographs of view. COMPARISON: 02/08/2020 IMPRESSION FINDINGS/IMPRESSION: Patient is status p ost right total hip arthroplasty with carcelage wires longer femoral stem. Res idual lucency at the proximal femoral stem component. No immediate postoperati ve complication. Alignment and positioning remains stable. Postsurgical changes are noted in the overlying soft tissues. Pelvic radiograph demonstrates no acute fracture. Redemonstration of periprosthetic lucency around the left f emoral stems remain stable when compared to the prior study dated 02/08/2020. Thank you for letting us participate in the care of this patient. For questions regarding this report, please contact e number below. Electronically signed by: Darling De La Garza MD, [facility] ([phone]), at 07/26/2020 10:08 PM Walter Crenshaw MD IMG DX ORDERABLES XR Pelvis (Generic) (07/26/2020 7:17 PM EST) Anatomical Region Laterality Modality Pelvis N/A Digital Radiography Specimen (Source) Anatomical Location Collection Method / Collectio n Time Received Time / Laterality Volume Impressions 07/26/2020 10:08 PM EST FINDINGS/IMPRESSION: Patient is status post right total hip arthroplasty with carcelage wires longer femoral stem. Res idual lucency at the proximal femoral stem component. No immediate postoperati ve complication. Alignment and positioning remains stable. Postsurgical changes are noted in the overlying soft tissues. Pelvic radiograph demonstrates no acute fracture. Redemonstration of periprosthetic lucency around the left f emoral stems remain stable when compared to the prior study dated 02/08/2020. Thank you for letting us participate in the care of this patient. For questions regarding this report, please contact e number below. ? Electronically signed by: Darling De La Garza MD, [facility] ([phone]), at 07/26/2020 10:08 PM Narrative 07/26/2020 10:08 PM EST EXAMINATION: XR PELVIS (GENERIC), XR FEMUR 2 VIEWS RIGHT (GENERIC) CLINICAL HISTORY: s/p revision REGGIE. ??Th anks! TECHNIQUE: AP pelvis, and 4 radiographs of view. COMPARISON: 02/08/2020 Procedure Note Darling De La Garza MD - 07/26/2020Formatt ing of this note might be different from the original. EXAMINATION: XR PELVIS (GENERIC), XR FEM UR 2 VIEWS RIGHT (GENERIC) CLINICAL HISTORY: s/p revision REGGIE. Than ks! TECHNIQUE: AP pelvis, and 4 radiographs of view. COMPARISON: 02/08/2020 IMPRESSION FINDINGS/IMPRESSION: Patient is status p ost right total hip arthroplasty with carcelage wires longer femoral stem. Res idual lucency at the proximal femoral stem component. No immediate postoperati ve complication. Alignment and positioning remains stable. Postsurgical changes are noted in the overlying soft tissues. Pelvic radiograph demonstrates no acute fracture. Redemonstration of periprosthetic lucency around the left f emoral stems remain stable when compared to the prior study dated 02/08/2020. Thank you for letting us participate in the care of this patient. For questions regarding this report, please contact e number below. Electronically signed by: Darling De La Garza MD, [facility] ([phone]), at 07/26/2020 10:08 PM Walter Crenshaw MD IMG DX ORDERABLES (ABNORMAL) Hemogram (07/26/2020 6:27 PM EST) Analysis Performed At Patho logist Time Signature WBC 10.4 (H) 4.0 - 9.5 [place] E[place] x10(3)/[facility] LABORATORY RBC 4.31 (L) 4.58 - [place] 5.54 [facility] x10(6)/[facility] LABORATORY Hemoglobin 13.0 (L) 13.7 - [place] 16.5 gm/dL [facility]ORY Hematocrit 38.9 (L) 40.5 - [place] E[place] 48.5 % [facility] MCV 90.3 82.9 - [facility] EULA 93.1 [facility] LABORATORY MCH 30.2 27.5 - PA EUAL 32.1 pg [facility] MCHC 33.4 32.0 - [place] 35.7 gm/dL [facility] Platelets 178 145 - [facility] RDWSD 46.5 (H) 36.0 - [place] 45.0 [facility] LABORATORY RDWCV 13.9 (H) 11.4 - [place] 13.8 % [facility]OR[facility] MPV 11.8 7.6 - 12.9 [place] [facility] LABORATORY nRBC % Auto 0.0 % [facility] LABORATORY nRBC Abs Auto 0.000 0.000 - CallRestoEULA 0.000 [facility] x10(3)/[facility] LABORATORY Specimen Anatomical Collection Method Collection Time Receive d Time (Source) Location / / Volume Laterality Blood specimen 07/26/2020 6:27 PM 020 6:32 (specimen) EST PM EST Resulting Agency Comment Spec In Lab Walter Crenshaw MD HEMATOLOGY ORDERABLES Performing Organization Address City/State/ZIP Code [place] [address] [facility] LAB[address]ATORY [address] Surgical Pathology Report (07/26/2020 2:46 PM EST) Component Value Ref Test Analysis Performed At [facility] gist Range Method Time Signature Surgical [id number] ? Location: PACU; [facility]; A [facility] Pathology [place] Report The signing pathologist has (i) examined the relevant preparation(s) for the [facility] specimen(s) and (ii) rendered or confirmed the diagnosis(es) . HOSPITAL LABORATORY . ?Surgic al Pathology DIAGNOSIS A - Right ?? hip synovium; resection: ?Scar, reactive and degenerative surface changes, abund ant laminar ?hemosiderin laden histiocytes, and mild chronic inflam mation. ?Single necrobiotic palisading granuloma with no annie al, mycobacterial ?or other acid fast organisms by special stains. ?No neutrophilic inflammatory infiltrate or metallosis. Electronically signed by: ??Uriah SANDERSON, Jose Nguyen Verified: ??07/30/2020 ?Pathologist Performed at: ??-[facility] Dept. of Pathology, [place], [place] ADDITIONAL STUDIES Special stains Block: A3 Stain ?Result methenamine silver ?? Negative for fungi Ziehl-Neelsen ?Negative for mycobacteria/acid-fast organisms Perls' iron ?Positive in abundant hemosid liyah laden histiocytes SPECIMEN(S) SUBMITTED A - Right ?? hip synovium CLINICAL INFORMATION Aseptic loosening right REGGIE. SPECIMEN PROCESSING A - Labeled/Fixative: Right hip synovium, fresh. Quantity/Size: Fragments, 4.0 x 3.7 x 1.7 cm. Tissue Description: Irregula r, variegated yellow orange to red-brown fibrofatty tissue. Sections/Processing: Camp Coordinator sections in 3 cassettes labeled A1-A3. ??shb Specimen (Source) Anatomical Collection Method Collection Time Re ceived Time Location / / Volume Laterality 07/26/2020 2:46 PM EST Jack Lewis MD PATHOLOGY/CYTOLOGY ORDERABLE S Performing Organization Address City/[facility]/ZIP [place] [address] Specimen to Pathology (07/26/2020 2:46 PM EST) Specimen Anatomical Collection Method Collection Time Receive d Time (Source) Location / / Volume Laterality AP Specimen 07/26/2020 2:46 PM 0 2:46 EST PM EST Narrative [facility]OR[facility] ORY - 07/26/2020 2:46 PM EST Specimen requisition ordered. ??Separate Pathology report to follow Jack Lewis MD PATHOLOGY/CYTOLOGY ORDERABLE S Performing Organization Address City/[facility]/ZIP [place] [address] Anaerobic Culture (07/26/2020 2:35 PM EST) [facility] gist Method Time Signature Anaerobic No anaerobic [facility] Culture organisms [facility] LABORATORY Specimen Anatomical Collection Method Collection Time Receive d Time (Source) Location / / Volume Laterality Joint fluid RIGHT HIP REGION 07/26/2020 2:35 PM 07/26 2:55 specimen STRUCTURE / EST PM EST (specimen) Unknown Resulting Agency Comment Spec In Lab Jack Lewis MD MICROBIOLOGY - GENERAL ORDER BRIGIDA Performing Organization Address City/[facility]/ZIP [place] [address] Joint Culture (07/26/2020 2:35 PM EST) Component Value Ref Test Analysis Performed At [facility] Lytics Range Method Time Signature Joint Culture No growth at 14 PA days. [facility]OR[facility]ORY Gram Stain Cytocentrifuge Gram Stain performed PA anderson [place] No microorganisms seen. [facility] LABOR[facility]ORY Specimen Anatomical Collection Method Collection Time Receive d Time (Source) Location / / Volume Laterality Joint fluid RIGHT HIP REGION 07/26/2020 2:35 PM 07/26 2:55 specimen STRUCTURE / EST PM EST (specimen) Unknown Resulting Agency Comment Spec In Lab Jack Lewis MD MICROBIOLOGY - GENERAL ORDER BRIGIDA Performing Organization Address City/[facility]/ZIP Code Phon e Number [place] [phone] Cell Count Body Fluid Hip, Right (07/26/2020 2:35 PM EST) [facility] Method Time Signature Spec Type BF Hip, Right [facility] Color BF Red [facility] Appearance BF Hazy [facility]OR[facility] WBC BF Ct 1,928 /[facility] LABORATORY Comment: Counts may be inaccurate due to presence of debris Guideline listed below apply to all body fluids. When Body Fluid WBC count is greater reggie n Zero, a smear is made and scanned. All scan information is correlated with numeric results prior to being released to patients chart. The reference interval(s) and other meth od performance specifications have not been established for this body fluid. Th e test result must be integrated into the clinical context for interpretation. Polymorph % 60 % [facility] Comment: Polymorphonuclear cell percent and absol ambler values may contain Neutrophils, Eosinophils, and Basophils. Body fluid s mear will be scanned manually for concordance. Mononuc % 40 % [facility] LABORATORY Comment: Mononuclear cell percent and absolute va lues may contain Lymphocytes and Monocytes. Body fluid smear will be scan anthony manually for concordance. Polymorph BF ABS 1,157 /[facility] LABORATORY Comment: Polymorphonuclear cell percent and absol ambler values may contain Neutrophils, Eosinophils, and Basophils. Body fluid s mear will be scanned manually for concordance. Mononuc ABS 771 /[facility] LABORATORY Comment: Mononuclear cell percent and absolute va lues may contain Lymphocytes and Monocytes. Body fluid smear will be scan anthony manually for concordance. Specimen Anatomical Collection Method Collection Time Receive d Time (Source) Location / / Volume Laterality Swab from hip 07/26/2020 2:35 PM 07/26/20 20 2:46 region EST PM EST (specimen) Resulting Agency Comment Spec In Lab Jack Lewis MD BODY FLUIDS AND STOOLS ORDER BRIGIDA Performing Organization Address City/[facility]/ZIP Code Phon e Number [place] [phone] HOS[address]ITAL LAB[address]ORY [address] SCAN DOC: IMPLANTABLE DEVICES (07/26/2020 12:00 AM EST) Narrative 07/26/2020 12:00 AM EST This result has an attachment that is no t available. Ordered by an unspecified provider. Scanning Provider MEDIA MGR SCAN EXT ORDR/RSLT documented in this encounter Visit Diagnoses Diagnosis History of total right hip arthroplasty documented in this encounter Admitting Diagnoses Diagnosis History of total right hip arthroplasty documented in this encounter Administered Medications Inactive Administered Medications - up to 3 most recent administrations Medication Order MAR Action Action Date Dose Rate Site acetaminophen (Tylenol) tablet Given 07/27/2020 7:06 AM EST 1,00 0 mg 1,000 mg 1,000 mg, Oral, EVERY 8 HOURS SCHEDULED, First dose on Charlette 07/26/20 at 2200, Until Discontinued, Maximum dose of acetaminophen is 4000 mg from all sources in 24 hours. When ordered for pain, acetaminophen should be given even when other ordered pain medications are indicated. , Routine Given 07/26/2020 10:35 PM EST 1,000 mg aspirin EC tablet 81 mg Given 07/27/2020 8:12 AM EST 81 mg 81 mg, Oral, 2 TIMES DAILY, First dose on Charlette 07/26/20 at 2100, Until Discontinued, Routine Given 07/26/2020 9:13 PM EST 81 mg ceFAZolin (Ancef) 2 g in dextrose 5% 100 Given 07/27/2020 2: 56 AM EST 2 g 200 mL/hr mL infusion 2 g, Intravenous, EVERY 8 HOURS, 3 doses, First dose on Charlette 07/26/20 at 1915, Last dose on Thu07/27/20 at 1115, Administer over 30 Minutes, Adjust to 4 hours from intraoperative dose. * Beta-lactam based antibiotics (eg. Ampicillin, Cefazolin, Aztreonam) should be administered within 4 hours of the preceding intraoperative dose. * Vancomycin, Fluoroquinolones, Clindamycin, Gentamicin, and Metronidazole should be administered within 8 hours of the preceding intraoperative dose., Recovery (Recovery-Hospital Unit), Indication for (Active or Suspected): Prophylaxis Given 07/26/2020 6:50 PM EST 2 g 200 mL/hr celecoxib (CeleBREX) capsule 200 mg Given 07/27/2020 8:11 AM EST 200 mg 200 mg, Oral, 2 TIMES DAILY, First dose on Charlette 07/26/20 at 2100, Until Discontinued, Routine Given 07/26/2020 9:13 PM EST 200 mg dexamethasone (Decadron) tablet 4 mg Given 07/27/2020 8:12 AM EST 4 mg 4 mg, Oral, DAILY, 2 doses, First dose on Charlette 07/26/20 at 2000, Last dose on Thu07/27/20 at 0900, Routine Given 07/26/2020 9:13 PM EST 4 mg gabapentin (Neurontin) capsule 300 mg 300 mg, Oral, NIGHTLY, First dose on 07/28/20 at 2 100, Until Discontinued, Routine gabapentin (Neurontin) capsule 600 mg Given 07/26/2020 9:14 PM EST 600 mg 600 mg, Oral, NIGHTLY, 2 doses, First dose on Charlette 07/26/20 at 2100, Last dose on Thu07/27/20 at 2100, Routine lactated Ringers 1,000 mL IV bolus New Bag 07/26/2020 8:00 PM EST Intravenous, ONCE, 1 dose, On Charlette 07/26/20 at 2045 multivitamin with minerals (THERA-M) tablet Given 07/15 8:12 AM EST 1 tablet 1 tablet 1 tablet, Oral, DAILY, First dose on Charlette 07/26/20 at 2000, Until Discontinued, Routine ondansetron (ZOFRAN) injection 4 mg 4 mg, Intravenous, EVERY 8 HOURS PRN, St arting on Charlette 07/26/20 at 1920, Until Thu07/27/20 at 1443, Nausea, May repeat marlo es one in 30 minutes if ineffective. If multiple antiemetics are ordered, use ondansetron firs t, Recovery (Recovery-Hospital Unit) ondansetron (Zofran) tablet 4 mg 4 mg, Oral, EVERY 8 HOURS PRN, Starting on Charlette 07/26/20 at 1920, Until Thu07/27/20 at 1443, Nausea, Vomiting, If multipl e antiemetics are ordered, use ondansetron first. PO Preferred. If patient unable to take PO, may give IV if ordered. May repeat times one in 45 minutes if ineffe ctive., Recovery (Recovery-Hospital Unit), Routine oxyCODONE (Roxicodone) tablet 5-15 mg Given 07/27/2020 12:37 PM EST 15 mg 5-15 mg, Oral, EVERY 4 HOURS PRN, Starting on Charlette 07/26/20 at 1844, Until Thu07/27/20 at 1443, Pain, Give 5 mg for mild pain (1-3), 10 mg for moderate pain (4-6) or 15 mg for severe pain (7-10) May give an additional 5 mg in 30 minutes ONCE if pain not relieved., Routine Given 07/27/2020 8:15 AM EST 15 mg Given 07/27/2020 4:07 AM EST 15 mg pantoprazole EC (Protonix) tablet 20 mg Given 07/27/2020 8:12 AM EST 20 mg 20 mg, Oral, DAILY, First dose on Charlette 07/26/20 at 2000, Until Discontinued, DO NOT CRUSH OR OPEN, Routine Given 07/26/2020 9:15 PM EST 20 mg polyethylene glycoL (Miralax) packet 17 g Given 07/27/2020 8:14 AM EST 17 g 17 g, Oral, 2 TIMES DAILY, First dose on Thu07/26/20 at 2100, Until Discontinued, Routine senna-docusate (Pericolace) 8.6-50 mg per Given 2019 8:12 AM EST 2 tablets tablet 2 tablet 2 tablet, Oral, 2 TIMES DAILY, First dose on Thu07/26/20 at 2100, Until Discontinued, Routine sodium chloride 0.9% Rate/Dose Verify 07/27/2020 6:33 AM 100 mL/hr 1 00 mL/hr infusion EST 100 mL/hr, Intravenous, CONTINUOUS, Starting on Thu07/26/20 at 1915, Until Thu07/27/20 at 1443, Recovery (Recovery-Hospital Unit) Rate/Dose Verify 07/27/2020 4:00 AM EST 100 mL/hr 100 mL/hr Rate/Dose Verify 07/27/2020 2:56 AM EST 100 mL/hr 100 mL/hr documented in this encounter Active and Recently Administered Medications Times are shown in EST. Scheduled Medication Order 07/25/2020 07/26/2020 07/27/2020 acetaminophen (Tylenol) tablet 1,000 mg 2235 (Given - Provider: Virginia Lopez RN) 0706 (Given - Provider: Lorrie Marlow RN) 1,000 mg, Oral, EVERY 8 HOURS SCHEDULED, First dose on Charlette 07/26/20 at 2200, Until Discontinued, Maximum dose of acetaminophen is 4000 mg from all sources in 24 hours. When ordered for pain, acetaminoph en should be given even when other order ed pain medications are indicated. , Routine aspirin EC tablet 81 mg 2112 (Given - Provider: Lorrie Marlow RN) 811 (Given - Provider: Harriett Gallegos, CHAZ) 81 mg, Oral, 2 TIMES DAILY, First dose o n Charlette 07/26/20 at 2100, Until Discontinued, Routine ceFAZolin (Ancef) 2 g in dextrose 5% 100 mL infusion (COMPLE CHIDI) 1406 (Given - Provider: Lucy Salinas CRNA) 2 g, Intravenous, EVERY 3 HOURS, 1 dose, First dose on Charlette 07/26/20 at 1145, Administer over 30 Minutes, Redose after 3 hours., Intra-Operative (Intra- Procedure), Indication for (Active or Suspected): Prophylaxis ceFAZolin (Ancef) 2 g in dextrose 5% 100 mL infusion 1850 (Given - Provider: Dominique Cuellar RN) 0256 (Given - Provider: Lorrie Marlow RN)1115 (Due) 2 g, Intravenous, EVERY 8 HOURS, 3 doses , First dose on Charlette 07/26/20 at 1915, Last dose on Thu07/27/20 at 1115, Administer over 30 Minutes, Adjust to 4 hours from intraoperative dose. * Beta-lactam bas ed antibiotics (eg. Ampicillin, Cefazoli n, Aztreonam) should be administered within 4 hours of the preceding intraoperative dose. * Vancomycin, Fluoroquinolones, Clindamycin, Gentamicin, and Metronidazo le should be administered within 8 hours of the preceding intraoperative dose., Recovery (Recovery-Hospital Unit), Indication for (Active or Suspected): Prophylaxis celecoxib (CeleBREX) capsule 200 mg 2112 (Given - Provider: Lorrie Marlow RN) 810 (Given - Provider: Harriett Gallegos, CHAZ) 200 mg, Oral, 2 TIMES DAILY, First dose on Charlette 07/26/20 at 2100, Until Discontinued, Routine dexamethasone (Decadron) tablet 4 mg (COMPLETED) 2112 (Given - Provider: Lorrie Marlow RN) 811 (Given - Provider: Harriett Gallegos, CHAZ) 4 mg, Oral, DAILY, 2 doses, First dose o n Charlette 07/26/20 at 2000, Last dose on Thu07/27/20 at 0900, Routine gabapentin (Neurontin) capsule 300 mg(Linked Group 1) 300 mg, Oral, NIGHTLY, First dose on Thu07/28/20 at 2100, Until Discontinued, Routine gabapentin (Neurontin) capsule 600 mg(Linked Group 1) 2113 (Given - Provider: Lorrie Marlow RN) 600 mg, Oral, NIGHTLY, 2 doses, First do se on Charlette 07/26/20 at 2100, Last dose on Thu07/27/20 at 2100, Routine lactated Ringers 1,000 mL IV bolus (COMPLETED) 1999 (New Bag - Provider: Lorrie Marlow RN) Intravenous, ONCE, 1 dose, Charlette 07/26/20 at 2044 multivitamin with minerals (THERA-M) tablet 1 tablet 1999 (Not Given - Provider: Lorrie Marlow RN - Reason: Patient/family refused) 811 (Given - Provider: Harriett Gallegos, CHAZ) 1 tablet, Oral, DAILY, First dose on Charlette 07/26/20 at 2000, Until Discontinued, Routine pantoprazole EC (Protonix) tablet 20 mg 2114 (Given - Provider: Lorrie Marlow RN) 811 (Given - Provider: Harriett Gallegos, CHAZ) 20 mg, Oral, DAILY, First dose on Charlette at 2000, Until Discontinued, DO NOT CRUSH OR OPEN, Routine polyethylene glycoL (Miralax) packet 17 g 2099 (Not Given - Provider: Lorrie Marlow RN - Reason: Patient/family refused) 813 (Given - Provider: Harriett Gallegos, CHAZ) 17 g, Oral, 2 TIMES DAILY, First dose on Thu07/26/20 at 2100, Until Discontinued, Routine senna-docusate (Pericolace) 8.6-50 mg per tablet 2 tablet 2099 (Not Given - Provider: Lorrie Marlow RN - Reason: Patient/family refused) 811 (Given - Provider: Harriett Gallegos, CHAZ) 2 tablet, Oral, 2 TIMES DAILY, First dos e on Charlette 07/26/20 at 2100, Until Discontinued, Routine sodium chloride 0.9 % (flush) flush 5 mL 2100 (Not Given - Provider: Lorrie Marlow RN - Reason: Order parameters not met) 0900 (Not Given - Provider: Harriett Gallegos RN - Reason: See comment - Comment: IV infusing) 5 mL, Intravenous, 2 TIMES DAILY, First dose on Charlette 07/26/20 at 2100, Until Discontinued, Recovery (Recovery-Hospital Unit), Routine tranexamic acid (CYKLOKAPRON) 1,484 mg i n sodium chloride 0.9% 114.84 mL (COMPLETED) 1406 (New Bag - Provider: Lucy nguyen CRNA) 1,484 mg (rounded from 1,483.5 mg = 15 m g/kg/dose ? 98.9 kg), Intravenous, ONCE, 1 dose, Charlette 07/26/20 at 1145, Administer over 30 Minutes, Day of Surgery (Day of Procedure) Continuous Medication Order 07/25/2020 07/26/2020 07/27/2020 lactated ringers infusion (CANCELED) 135 7 (New Bag - Provider: Lucy Salinas CRNA)1710 (Anesthesia Volume Adjustment - Provider: Lucy Salinas CRNA)1737 (Anesthesia Volume Adjustment - Provider: Lucy Salinas CRNA) 1,000 mL, at 100 mL/hr, Intravenous, CON TINUOUS, Starting Charlette 07/26/20 at 1145, Until Charlette 07/26/20 at 1941, Day of Surgery (Day of Procedure) sodium chloride 0.9% infusion 1852 (New Bag - Provider: Dominique Cuellar RN) 0000 (Rate/Dose Verify - Provider: Lorrie Marlow RN)0256 (Rate/Dose Verify - Provider: Lorrie Marlow RN)0400 (Rate/Dose Verify - Provider: Lorrie Marlow RN)0633 (Rate/Dose Verify - Provider: Lorrie Marlow RN) 100 mL/hr, at 100 mL/hr, Intravenous, CO NTINUOUS, Starting Charlette 07/26/20 at 1915, Until Thu07/27/20 at 1443, Recovery (Recovery-Hospital Unit) PRN Medication Order 07/25/2020 07/26/2020 07/27/2020 bisacodyL (Dulcolax) suppository 10 mg 10 mg, Rectal, DAILY PRN, Starting Charlette 1 09/25/19 at 1940, Until Thu07/27/20 at 1443, Constipation, Administer if needed per patient's routine or if no bowel movement within 48 hours to achieve: (1) One bowel movement every 48 hours, AND (2) w ithout straining. If multiple PRN bowel medications ordered, start with lactulose, then oral bisacodyl, then bisacodyl suppository. Multiple medications may be given concomitantly for constipation., Routine bisacodyl EC (Dulcolax) tablet 10 mg 10 mg, Oral, 2 TIMES DAILY PRN, Starting Charlette 07/26/20 at 1940, Until Thu07/27/20 at 1443, Constipation, DO NOT CRUSH OR OPEN Administer if needed per patient's routine or if no bowel movement withi n 48 hours to achieve: (1) One bowel mov ement every 48 hours, AND (2) without straining. If multiple PRN bowel medications ordered, start with lactulose, then oral bisacodyl, then bisacodyl suppository. Multiple medications may be given concomitantly for constipatio n., Routine BUpivacaine (PF) (MARCAINE) 0.25 % (2.5 mg/mL) injection (CA NCELED) 151 (Given - Provider: Jack Lewis MD - Comment: 50 ml 0.25% bupivacaine mixed with ketorolac 30 mg, and clonidine 50 mcg, all infiltrated into surgical site.) ONCE PRN, Starting Charlette 07/26/20 at 1516, Until Thu07/27/20 at 1443, Intra- Operative (Intra-Procedure), Routine cloNIDine injection (CANCELED) 151 (Giv en - Provider: Jack Lewis MD - Comment: 50 ml 0.25% bupivacaine mixed with ketorolac 30 mg, and clonidine 50 mcg, all infiltrated into surgical site.) ONCE PRN, Starting Charlette 07/26/20 at 1519, Until Thu07/27/20 at 1443, Intra- Operative (Intra-Procedure), Routine ketorolac (Toradol) (15 mg/mL) injection 15 mg 15 mg, Intravenous, EVERY 6 HOURS PRN, S tarting Charlette 07/26/20 at 1940, Until Thu07/27/20 at 1443, Pain, Routine ketorolac (Toradol) (30 mg/mL) injection (CANCELED) 1519 (Given - Provider: Jack Lewis MD - Comment: 50 ml 0.25% bupivacaine mixed with ketorolac 30 mg, and clonidine 50 mcg, all infiltrated into surgical site.) ONCE PRN, Starting Charlette 07/26/20 at 1519, Until Thu07/27/20 at 1443, Intra- Operative (Intra-Procedure), Routine lactulose (Chronulac) (0.67 gram/mL) oral liquid 10 g 10 g, Oral, DAILY PRN, Starting Charlette 07/15 11/03 at 1940, Until Thu07/27/20 at 1443, Constipation, Administer if needed per patient's routine or if no bowel movement within 48 hours to achieve: (1) One bow el movement every 48 hours, AND (2) with out straining. If multiple PRN bowel medications ordered, start with lactulose, then oral bisacodyl, then bisacodyl suppository. Multiple medications may be given concomitantly for constipation., Routine lidocaine (XYLOCAINE) 10 mg/mL (1 %) injection 3 mg 3 mg (0.3 mL), Subcutaneous, ONCE PRN, 1 dose, Starting Charlette 07/26/20 at 1920, Until Thu07/27/20 at 1443, for discomfort with PIV insertion, Recovery (Recovery-Hospital Unit), Routine ondansetron (ZOFRAN) injection 4 mg(Linked Group 2) 4 mg, Intravenous, EVERY 8 HOURS PRN, St arting Charlette 07/26/20 at 1920, Until Thu07/27/20 at 1443, Nausea, May repeat times one in 30 minutes if ineffective. If multiple antiemetics are ordered, use on dansetron first, Recovery ([facility]ospital Unit) ondansetron (Zofran) tablet 4 mg(Linked Group 2) 4 mg, Oral, EVERY 8 HOURS PRN, Starting Charlette 07/26/20 at 1920, Until Thu07/27/20 at 1443, Nausea, Vomiting, If multiple antiemetics are ordered, use ondansetron first. PO Preferred. If patient unab le to take PO, may give IV if ordered. M ay repeat times one in 45 minutes if ineffective., Recovery ([facility] Unit), Routine oxyCODONE (Roxicodone) tablet 5-15 mg 19 17 (Given - Provider: Lorrie Marlow, CHAZ)1944 (Given - Provider: Lorrie Marlow, RN)2235 (Given - Provider: Virginia Lopez, CHAZ)2353 (Given - Provider: Lorrie Marlow, CHAZ) 0407 (Given - Provider: Lorrie Marlow, CHAZ)0815 (Given - Provider: Harriett Gallegos, CHAZ)1237 (Given - Provider: Harriett Gallegos, CHAZ) 5-15 mg, Oral, EVERY 4 HOURS PRN, Starti ng Charlette 07/26/20 at 1844, Until Thu07/27/20 at 1443, Pain, Give 5 mg for mild pain (1-3), 10 mg for moderate pain (4-6) or 15 mg for severe pain (7-10) May give a n additional 5 mg in 30 minutes ONCE if pain not relieved., Rout ine sodium chloride 0.9 % (flush) flush 5-20 mL 5-20 mL, Intravenous, EVERY 1 MIN PRN, S tarting Charlette 07/26/20 at 1920, Until Thu07/27/20 at 1443, flush, Flush pertains to all indwelling lines. Flush per protocol found in the job aid using the link pr ovided on this medication record., Recovery ([facility]Hospital [facility] nit), Routine Linked Groups Order Group 1: gabapentin (Neurontin) capsule 600 mgJump to med 600 mg, Oral, NIGHTLY, 2 doses, First do se on Charlette 07/26/20 at 2100, Last dose on Thu07/27/20 at 2100, Routine Followed by gabapentin (Neurontin) capsule 300 mgJump to med 300 mg, Oral, NIGHTLY, First dose on 07/28/20 at 2100, Until Discontinued, Routine Group 2: ondansetron (Zofran) tablet 4 mgJump to med 4 mg, Oral, EVERY 8 HOURS PRN, Starting Charlette 07/26/20 at 1920, Until Thu07/27/20 at 1443, Nausea, Vomiting
If multiple antiemetics are ordered, use ondansetron first. PO Preferre d. If patient unable to take PO, may giv e IV if ordered. May repeat times one in 45 minutes if ineffective.
Recovery ([facility]Hospital Unit), Routine Or ondansetron (ZOFRAN) injection 4 mgJump to med 4 mg, Intravenous, EVERY 8 HOURS PRN, St shamaring Charlette 07/26/20 at 1920, Until 07/27/20 at 1443, Nausea
May repeat times one in 30 minutes if ineffective. If multiple antiemetics ar e ordered, use ondansetron first
Re covery (Recovery-Hospital Unit) documented in this encounter Care Teams Transit Proof Machine Operator Relationship Specialty Start Date End Date Grover Herman MD PCP - General Family Medicine 07/19/20 [address] [place] [address] documented as of this encounter
--- OUTSIDE RECORDS SUMMARY | 2022-07-01 13:47 | XMS_ITS | Encounter Summary ---
:1955 [place] [address] Care Team Providers Name Role Phone Grover Herman MD Primary Care Provider Encounter Details Date Type Department Care Team Description 07/25/2020 Telephone [facility] Janeth Naylor, [place] [id number] Social History Tobacco Use Types Packs/Day [...] this encounter Miscellaneous Notes Telephone Encounter - Janeth Naylor RN - 07/25/2020 5:28 PM EST Telephone call to pt to inform pt of NEGATIVE Covid-19 test results. Pt verbalizes understanding and will contact healthcare provider if any concerns or requires furthercare. documented in this encounter Plan of Treatment Upcoming Encounters Date Type Specialty Care Team Description 07/08/2022 Office Visit Radiation Oncology Shelley Kimble, V BELT INSPECTOR [facility] RADI[facility] [place], [place] [address] (Wo rk) documented as of this encounter Visit Diagnoses Not on filedocumented in this encounter Care Teams Drug Abuse Treatment Specialist Relationship Specialty Start Date End Date Grover Herman MD PCP - General Family Medicine 07/19/20 [address] [place] [address] documented as of this encounter
--- OUTSIDE RECORDS SUMMARY | 2022-07-01 13:47 | XMS_ITS | Encounter Summary ---
:1955 Author Organization [facility] [place] [address] Care Team Providers Name Role Phone Coty Montes MD Primary Care Provider Reason for Visit Auth/Cert Specialty Diagnoses / Procedures Referred By Contact Refer red To Contact Diagnoses Broken internal left hip prosthesis, sequela Failed Left REGGIE Procedures PRO REVISE TOTAL HIP REPLACEMENT @TOTAL HIP REVISION ARTHROPLASTY, COMPLETE (WRVU 30.28) MODIFIER RECLAIM DEPUY Referral ID Status Reason Start Date Expiration Date Visits Requ ested Visits Authorized [id number] 1 1 Encounter Details Date Type Department Care Team Description 01/12/2020 - Hospital Encounter 3 [place] [facility] Ruvalcaba e of left 01/13/2020 [facility] MD [facility] total hip [facility] arthroplasty, [facility] DR santa Gutierrez ORTHOPAEDIC encounter [place], [place] SURGERY [id number] [place] [address] [phone] Social History Tobacco Use Types Packs/Day Years [...] Sign Reading Time Taken Comments Blood Pressure 118/62 01/13/2020 11:13 AM EDT Pulse 74 01/13/2020 11:13 AM EDT Temperature 36.9 ??C (98.4 ??F) 01/13/2020 11:13 AM EDT Respiratory Rate 18 01/13/2020 11:13 AM EDT Oxygen Saturation 96% 01/13/2020 11:13 AM EDT Inhaled Oxygen Concentration - - Weight - - Height - - Body Mass Index - - documented in this encounter Discharge Summaries Thom Siegel PA - 01/13/2020 12:07 PM EDT Discharge Summary Patient Name: Dominick Castro Patient Age: 64 y.o. Language: Turkish Race: White Ethnicity: Not nor Admit date: 01/12/2020 Discharge date and time: 01/13/2020 Attending Physician: Jack Lewis MD Discharge Physician: Jack Lewis MD Follow-up Recommendations for Providers: See discharge instructions for additional details. Future Appointments Date Time Provider Department Center 02/08/2020 1:[address] [facility] DX ROOM [address] [facility] Rad 02/08/2020 2:30 PM Jack Lewis MD [facility] ORTH 3C [facility] Inpatient Provider Contact Information: Jack Lewis MD Orthopedics: [phone] After hours and weekends, call [facility] Roller Cleaner, , and have the Orthopedic resident paged. Discharge Diagnoses (Hospital Problems) and Secondary Diagnoses (Chronic Problems): Active Hospital Problems Diagnosis ??? s/p revision L REGGIE 01/12/20 (Dr. Lewis) Resolved Hospital Problems No resolved problems to display. Active Non-Hospital Problems Diagnosis ??? History of total hip arthroplasty ??? Migraines ??? Rotator cuff tear Operations/Major Procedures: 01/12/2020 Surgeon(s) and Role: * Jack Lewis MD - Primary * Andrea Pena MD - Resident Procedure(s): @TOTAL HIP REVISION ARTHROPLASTY, COMPLETE (WRVU 30.28) MODIFIER RECLAIM DEPUY MODIFIER PINNACLE ACETABULUM DEPUY MODIFIER CABLES AND PINS IMPLANTS SYNTHES History of Presentation: Dominick Castro is a 64 y.o. male who underwent bilateral total hip arthroplasty [place] [address] Jonh Christensen utilizing modular izfaz-gd-fwnro bearings. Approximately 2 years ago imaging was obtainedduring routine follow-ups which demonstrated significant new osteolysis around both proximal femurs.At that point the patient was asymptomatic and declined surgical intervention. In July 2019 the patient presented again now with new onset of left proximal thigh pain which was worse with weightbearing. X-rays demonstrated progression of the osteolysis around the left proximal femur. Inflammatory markers were checked and were benign with a CRP of 2.0 mg/L and a sed rate of 6 mm/h. Caspar and chromium were both elevated with a chromium of 1.7 ng/mL and a cobalt of 5.6 ng/mL. Given the ofllx-ll-ljwty articulations, his elevated metal ions, and new pain I recommended revision of his left total hiparthroplasty. We discussed risks of revision arthroplasty including infection, limb length discrepancy, hip instability, fracture, and continued metal ion generation due to the presence of his retainedright sfjgy-vl-zszve hip. We also discussed potential need for blood transfusion, blood clots and pulmonary embolism, and medical complications up to and including . Despite these risks the patient wished to proceed with a left revision total hip arthroplasty and informed consent was signed in clinic. Hospital Course: The patient was admitted via Same Day Surgery for the above operation. DVT prophylaxis was: Aspirin 81 mg BID x 4 weeks. Patient began rehab on POD#1 for weight bearing as tolerated of left leg and reinforcement of the REGGIE Enhanced Precautions. Abarca was removed on POD#0 and patient was voiding spontaneously. Wound inspected POD#1 and found to be benign. Patient did not have a bowel movement prior todischarge but was passing flatus and was taking a diet without difficulty. By POD#1 the patient was medically stable and was cleared for safe discharge to home per PT. Of Note: On POD#0, upon arrival to floor and then again in the evening, the patient had near syncopal episodes. He was provided IV bolus and put in trendelenburg positioning for first incident and was noted to have dips in BP and HR as noted in chart. He recovered quickly from both of these episodes and vitals were noted to have stabilized on POD#1 in the morning. He was counseled to contact his PCP,go to the emergency room, or call 911 depending on the severity, should he have any more episodes like these after discharge. Vital Signs at Discharge: Weight: Wt Readings from Last 1 Encounters: 01/11/20 100.2 kg (221 lb) Height: Ht Readings from Last 1 Encounters: 01/11/20 180.3 cm (5' 11) HC: HC Readings from Last 1 Encounters: No data found for HC BMI: There is no height or weight on file to calculate BMI. Last value Range last 24 hrs Temperature Temp: 36.9 ??C (98.4 ??F) Temp: [36.1 ??C (97 ??F)-37 ??C (98.6 ??F)] Heart Rate Heart Rate: 74 Heart Rate: [62-74] Blood Pressure BP: 118/62 BP: (69-139)/(42-84) Respiratory Rate Resp: 18 Resp: [14-18] SpO2 SpO2: 96 % SpO2: [93 %-97 %] Art BP BP (Arterial Line): -- Functional and Cognitive Status: Patient mobilizing with use of crutches, cognitively intact at baseline mental status at time of discharge. Important Lab Data: Last 3 wbc, hgb, hct plt Recent Labs 01/13/20 0525 01/12/20 1457 01/11/20 1101 WBC 12.4* 14.8* 5.8 HGB 12.0* 13.6* 15.6 HCT 37.0* 39.3* 46.4 PLATELET 175 172 198 Last 3 Lytes Recent Labs 01/13/20 0525 01/12/20 1457 01/11/20 1101 NA 140 136 139 K 4.2 3.8 3.9 CL 105 103 102 CO2 23 21* 22 BUN 14 16 15 CREATININE 0.87 0.88 0.70* Studies: Xr Pelvis (generic) Result Date: 01/12/2020 EXAMINATION: XR PELVIS (GENERIC) CLINICAL HISTORY: s/p revision L REGGIE (femoral component), assess for hardware placement and reduction TECHNIQUE: 1 views of the pelvis COMPARISON: 07/20/2019. FINDINGS: New femoral prosthetic component on the left. No acute osseous complication. Alignment is within the expected limits. Otherwise unchanged appearance of the bilateral total hip arthroplasty. Similar smoothly lobulated periprosthetic lucencies bilaterally. Expected early postoperative air inclusions in the left-sided soft tissues. 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 No acute complication. Smoothly lobulated periprosthetic lucencies are very similar. Thank you for letting us participate in the care of this patient. For questions regarding this report, please contact the number below. Pending Studies and Lab Data at Discharge: Order Name Source Comment Collection Info Order Time SPECIMEN TO PATHOLOGY Left hip synovium r/o metalosis vs isha Failed Left REGGIE left hip excision 01/12/2020 8:46 AM Time specimen removed from patient: 8:45 AM Number of tissue samples (in container) 1 Transfusions: No Discharge Conditions/Prognosis: Stable, awake, and alert. Mobilizing as noted above, pain controlledon oral medications. Discharge to: Home with [facility] for PT. Updated Allergies/ADRs: No Known Allergies Immunizations Given [...] as needed for Pain for up to 42 doses. 5-10 mg Quantity: 42 tablet Refills: 0 polyethylene glycol 17 gram Pwpk Commonly known as: Miralax Take 17 g by mouth daily as needed (For constipation) for up to 30 days. 17 g Refills: 0 Senna 8.6 mg Tab Take 1 tablet by mouth 2 times daily as needed for Constipation for up to 30 days. Generic drug: senna 1 tablet Refills: 0 STOPPED Medications oxyCODONE-acetaminophen 5-325 mg Tab Commonly known as: Percocet Smoking Status at Discharge: Social History Tobacco Use Smoking Status Never Smoker Smokeless Tobacco Never Used Instructions Given to Patient at Discharge: Patient Instructions Activity: 1. Your weight-bearing status is - weight bearing as tolerated of left leg. 2. Remember to use a walker [...] for 30 days. After your dose on 02/11/20 stop the Aspirin, unless you are told [...] bowel movement. You can also take an uxwz-ztg-udhmhbt medication, Miralax if needed to combat constipation. 2. If you need a renewal on your narcotic pain medication, you need to give the Orthopedic clinic enough time to process your request. This can take up to three days, so plan accordingly. 3. Continue acetaminophen (Tylenol) 1,000mg every 8 hours around the clock until 01/22/20 (for ten days after your surgery). This can be effective in controlling pain along with your other medications. After that you can take Tylenol as needed per package insert. Do not take more than 3,000mg of acetaminophen in a 24 hour period. 4. You have been discharged on a short acting narcotic, oxycodone. You will be on this medication for a limited period of time only. Take the smallest dose [...] weeks. Your last dose will be on 02/23/20. If you no longer are requiring the narcotic pain medication you may change the way you take the prescribed naproxen and instead take twice a day as needed. 6. You are being discharged on a proton pump inhibitor (Prilosec OTC). This will decrease stomach irritation that may [...] operative dressing 7 days after your surgery (01/19/20). When it is removed you can leave the incision open to air or cover it with a light dressing. 3. If you have lots of drainage when you get home (and it is before 01/19/20), remove the operative dressing and replace it [...] as much as possible. Call your doctor ([phone]) if you develop: 1. Fever greater than 100.5 2. Severe nausea or vomiting 3. Increasing pain that is not controlled by pain medications 4. Increasing redness, swelling, or drainage from incisions 5. Change in sensation FOLLOW-UP APPOINTMENTS: 1. You will have follow-up appointments at [facility] as indicated below in Future Appointment and Orders. 2. You will need to have x-rays prior to your follow-up appointment on 02/08/20. Please come to Radiology, desk 3T, 1 hour BEFORE that appointment for these x-rays. Future Appointments Date Time Provider Department Center 02/08/2020 1:[address] [facility] DX ROOM [address] [facility] Rad 02/08/2020 2:30 PM Jack Lewis MD [facility] ORTH 3C [facility] If you have questions or concerns: Thursday through Thursday, 8 AM - 5 PM, please call Dr. Jack Lewis MD's office at . If it is after 5 PM, the weekend, or holidays, please call and ask to speak with the Orthopedic resident on-call. General Instructions None Future Appointments and Orders Future Appointments and Orders Future Appointments Provider Department Dept Phone 02/08/2020 1:[address] [facility] DX ROOM 6 XRay at [facility] Arrive at: [facility] Area [phone] Please go to [facility] 3T ([place] Location). 02/08/2020 2:30 PM Jack Lewis MD Orthopaedics at [facility] Arrive at: [facility] [facility] 3C [phone] Future Orders Complete By Expires XR Pelvis and Hip 2 Views Left [07513 Custom] 02/11/2020 08/12/2020 Process Instructions: Scheduling Instructions: Questions: Where will study be performed?: [facility] Radiology Portable exam?: Reason for exam and clinical history: s/p revision L REGGIE 01/12/20, assess hardware location Clinical information / ohuser questions: Stat read required?: Date of injury if applicable: Requested Time: Referral to Home Health - at DISCHARGE [[id number] CPT(R)] As directed Process Instructions: Scheduling Instructions: Comments: DOCUMENTATION FOR VNA SERVICES (INCLUDING PATIENTS WITH MEDICARE COVERAGE BEING DISCHARGED HOME WITH VNA SERVICES AND/OR HOSPICE SERVICES) PATIENT'S LOCATION: Dominick Castro Discharge to own home: [address] [place] [id number] [employer] 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 In discussion with the primary medical team, it is certified that, based on their findings, the indicated services are medically necessary and appropriate for home health services. HOME HEALTH AGENCY: [facility]. PHONE: [phone] FAX: [phone] Custodial(SN) eval if indicated on admission visit Activity: WBAT LLE, enhanced precautions Closure: Resorbable sutures Dressing: Mepilex Ag x 7 days Do not lift the edge of the mepilex dressing to observe the incision; this dressing needs to stay inplace until 7 days after surgery. Continue PT rehab for balance, endurance, joint mobility, ROM, Strength, TKA protocol FOR MEDICARE ONLY: (please delete this section if not Medicare) In discussion with the attending physician, it is certified that the clinical findings support that this patient is homebound ;i.e. absences from home require considerable and taxing effort due to:requires assistance of another to navigate community surfaces. Please note that any additional orders needs or changes will need to be obtained from this patient'sPCP: Coty Montes MD [address] [place] [phone] All VNA agencies which cover patient's residence area have been reviewed, either verbally or in writing, and patient/family have chosen the indicated home health agency. Questions: [facility] contact information[facility] Patient location post discharge: home What services are requested: Physical Therapy Start date: 01/14/2020 Responsible MD post discharge contact info: PCP Primary Care Provider: Coty Montes MD [phone] Discharge References/Attachments None documented in this encounter Discharge Instructions Patient InstructionsMiThom keyes PA - 01/12/2020 11:25 AM EDT Activity: 1. Your weight-bearing status is - weight bearing as tolerated of left leg. 2. Remember to use a walker [...] for 30 days. After your dose on 02/11/20 stop the Aspirin, unless you are told [...] bowel movement. You can also take an xcmi-iqc-fenezqg medication, Miralax if needed to combat constipation. 2. If you need a renewal on your narcotic pain medication, you need to give the Orthopedic clinic enough time to process your request. This can take up to three days, so plan accordingly. 3. Continue acetaminophen (Tylenol) 1,000mg every 8 hours around the clock until 01/22/20 (for ten days after your surgery). This can be effective in controlling pain along with your other medications. After that you can take Tylenol as needed per package insert. Do not take more than 3,000mg of acetaminophen in a 24 hour period. 4. You have been discharged on a short acting narcotic, oxycodone. You will be on this medication for a limited period of time only. Take the smallest dose [...] weeks. Your last dose will be on 02/23/20. If you no longer are requiring the narcotic pain medication you may change the way you take the prescribed naproxen and instead take twice a day as needed. 6. You are being discharged on a proton pump inhibitor (Prilosec OTC). This will decrease stomach irritation that may [...] operative dressing 7 days after your surgery (01/19/20). When it is removed you can leave the incision open to air or cover it with a light dressing. 3. If you have lots of drainage when you get home (and it is before 01/19/20), remove the operative dressing and replace it [...] as much as possible. Call your doctor ([phone]) if you develop: 1. Fever greater than 100.5 2. Severe nausea or vomiting 3. Increasing pain that is not controlled by pain medications 4. Increasing redness, swelling, or drainage from incisions 5. Change in sensation FOLLOW-UP APPOINTMENTS: 1. You will have follow-up appointments at [facility] as indicated below in Future Appointment and Orders. 2. You will need to have x-rays prior to your follow-up appointment on 02/08/20. Please come to Radiology, desk 3T, 1 hour BEFORE that appointment for these x-rays. Future Appointments Date Time Provider Department Center 02/08/2020 1:[address] [facility] DX ROOM [address] [facility] Rad 02/08/2020 2:30 PM Jack Lewis MD [facility] ORTH [address] [place] [address] If you have questions or concerns: Thursday [...] acetaminophen (Tylenol) Take 2 tablets by 0 01/1201/23/2020 500 mg Tablet mouth every 8 hours for 10 days. aspirin EC 81 mg Take 1 tablet by 60 tablet 0 01/13/2020 Tablet, Delayed Release mouth 2 times daily (E.C.) for 30 days. gabapentin (Neurontin) Take 1 capsule by 30 capsule 0 201902/12/2020 300 mg Capsule mouth nightly for 30 days. polyethylene glycol Take 17 g by mouth 0 01/13/20 20 02/08/2020 (Miralax) 17 gram daily as needed (For Powder in Packet constipation) for up to 30 days. omeprazole (PriLOSEC) Take 1 capsule by 42 capsule 0 2 020 02/08/2020 20 mg Capsule, Delayed mouth daily for 42 Release(E.C.) days. oxyCODONE (Roxicodone) Take 1-2 tablets by 42 tablet 0 05/0 09/201902/08/2020 5 mg Tablet mouth every 4 hours as needed for Pain for up to 42 doses. senna (Senna) 8.6 mg Take 1 tablet by 0 0 02/08/2020 Tablet mouth 2 times daily as needed for Constipation for up to 30 days. naproxen (NAPROSYN) 500 Take 1 tablet by 84 tablet 0 201902/08/2020 mg Tablet mouth 2 times daily (with meals) for 42 days. documented as of this encounter Progress Notes Tanvir rPatt RN - 01/13/2020 1:35 PM EDT Patient discharged to home with VNA services. IV removed, site benign. My assessment remains unchanged from my previous assessment. Patient denies chest pain and shortness of breath. Discussed pain management with patient, pain tolerable. Patient medicated prior to discharge. Patient has all belongings. Patient received discharge summary. All questions answered. Patient encouraged to call with questions or concerns. Patient discharged to home with family. Discharge Summary was faxed to [facility]NA. Andrea Pena MD - 01/13/2020 5:48 AM EDT ORTHOPAEDIC SURGERY INPATIENT PROGRESS NOTE Patient Name: Dominick Castro Age: 64 y.o. Surgery/Issue: Revision Left Total Hip Arthroplasty Attending: Debbie Date of surgery: 01/12/2020 SUBJECTIVE / INTERVAL HISTORY: NAEON Near syncopal event yesterday afternoon and again early evening when up to chair. Recovered quickly both times without any lasting symptoms. Wkup unremarkable. Offers no complaints this am. Pain well-controlled. Denies f/c/cp/sob/n/v/numbness/tingling/weakness. Very pleased with how he is feeling, states his hip feels much more stable. AVSS Hgb 15.6 pre-op to 13.6 post-op c/w acute blood loss anemia from surgery. No micro-organisms on gram stain of intra-op cx. Cell count not c/w infection. Tolerating po. Voiding on own. Has been OOB to chair. FOCUSED REVIEW OF SYSTEMS: as above. Active Hospital Problems Diagnosis ??? s/p revision L REGGIE 01/12/20 (Dr. Lewis) Resolved Hospital Problems No resolved problems to display. Active Non-Hospital Problems Diagnosis ??? History of total hip arthroplasty ??? Migraines ??? Rotator cuff tear MEDICATIONS: ??? cloNIDine injection ??? ketorolac (TORADOL) injection ??? BUpivacaine (PF) (MARCAINE) 0.25 % (2.5 mg/mL) injection ??? sodium chloride 0.9 % (flush) flush 5 mL ??? sodium chloride 0.9 % (flush) flush 5-20 mL ??? lidocaine (XYLOCAINE) 10 mg/mL (1 %) injection 3 mg ??? polyethylene glycol (Miralax) packet 17 g ??? senna-docusate (Pericolace) 8.6-50 mg per tablet 2 tablet ??? bisacodyl EC (Dulcolax) tablet 10 mg ??? bisacodyL (Dulcolax) suppository 10 mg ??? acetaminophen (Tylenol) tablet 1,000 mg ??? pantoprazole EC (Protonix) tablet 20 mg ??? lactated ringers infusion ??? oxyCODONE (Roxicodone) tablet 5-15 mg ??? aspirin EC tablet 81 mg ??? gabapentin (Neurontin) capsule 600 mg FOLLOWED BY [START ON 01/14/2020] gabapentin (Neurontin)capsule 300 mg ??? ketorolac (TORADOL) injection 15 mg ??? celecoxib (CeleBREX) capsule 200 mg ??? lactated Ringers 1,000 mL (01/12/20 1548) OBJECTIVE: Temp: [35.9 ??C (96.6 ??F)-37.3 ??C (99.1 ??F)] Heart Rate: [62-74] Resp: [13-23] BP: (69-161)/(42-84) Intake/Output Summary (Last 24 hours) at 01/13/2020 0548 Last data filed at 01/13/2020 0338 Gross per 24 hour Intake 3943 ml Output 2700 ml Net 1243 ml There is no height or weight on file to calculate BMI. PE: General: NAD, awake/alert CV: RRR assessed peripherally Resp: Breathing comfortably on RA LLE: Dressing c/d/i. Motor intact to EHL, FHL, ADF/APF. Sensation intact in foot/calf/thigh. Brisk capillary refill distally. Palpable PT/DP pulses. Lab Results Component Value Date NA 136 01/12/2020 K 3.8 01/12/2020 CL 103 01/12/2020 CO2 21 (L) 01/12/2020 BUN 16 01/12/2020 CREATININE 0.88 01/12/2020 GLUCOSE 170 01/12/2020 CALCIUM 8.3 (L) 01/12/2020 Lab Results Component Value Date WBC 14.8 (H) 01/12/2020 HGB 13.6 (L) 01/12/2020 HCT 39.3 (L) 01/12/2020 MCV 88.9 01/12/2020 PLATELET 172 01/12/2020 Lab Results Component Value Date INR 1.0 01/11/2020 Imaging: AP Pelvis The left revised hip is reduced. There is no evidence of intra-op fracture. ASSESSMENT / PLAN: Dominick Castro is a 64 y.o. 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 He is recovering well overall post-operatively. Episode of near syncope yesterday without any ongoing symptoms. Plan to work with PT/OT this am. Mr. Castro would like to discharge today if possible. This is reasonable and we will work to do so if safe. Activity: WBAT LLE, enhanced precautions Closure: Resorbable sutures Dressing: Mepilex Ag x 7 eays Drain: none Anticoagulation: ASA 81mg BID for 30 days Antibiotics: periop cefazolin x 24 hrs Consults: PT/OT Dispo: per PT/OT Follow-up: 4 wks w/ Dr. Debbie Pena MD 01/13/2020 Future Appointments Date Time Provider Department Center 02/08/2020 1:[address] [facility] DX ROOM [address] [facility] Rad 02/08/2020 2:30 PM Jack Lewis MD [facility] ORTH [address] [place] [address] Pramod Collins MD - 01/12/2020 4:27 PM EDT ORTHOPAEDIC SURGERY INPATIENT PROGRESS NOTE Patient Name: Dominick Castro Age: 64 y.o. Surgery/Issue: Revision Left Total Hip Arthroplasty Attending: Debbie Date of surgery: 01/12/2020 SUBJECTIVE / INTERVAL HISTORY: Patient had a near syncopal episode after arriving to floor. He states he attempted to sit up when he felt nauseous and his vision became blurry. His HR dipped to 30s with SBP in the 80s but quickly resolved with laying back down and fluids. He currently feels well and states the same thing happened to him following the first surgery on his hip. Denies CP, SOB, nausea, vomiting, numbness/weakness. Pain well controlled. FOCUSED REVIEW OF SYSTEMS: as above. Active Hospital Problems Diagnosis ??? s/p revision L REGGIE 01/12/20 (Dr. Lewis) Resolved Hospital Problems No resolved problems to display. Active Non-Hospital Problems Diagnosis ??? History of total hip arthroplasty ??? Migraines ??? Rotator cuff tear MEDICATIONS: ??? cloNIDine injection ??? ketorolac (TORADOL) injection ??? BUpivacaine (PF) (MARCAINE) 0.25 % (2.5 mg/mL) injection ??? sodium chloride 0.9 % (flush) flush 5 mL ??? sodium chloride 0.9 % (flush) flush 5-20 mL ??? lidocaine (XYLOCAINE) 10 mg/mL (1 %) injection 3 mg ??? polyethylene glycol (Miralax) packet 17 g ??? senna-docusate (Pericolace) 8.6-50 mg per tablet 2 tablet ??? bisacodyl EC (Dulcolax) tablet 10 mg ??? bisacodyL (Dulcolax) suppository 10 mg ??? acetaminophen (Tylenol) tablet 1,000 mg ??? pantoprazole EC (Protonix) tablet 20 mg ??? lactated ringers infusion ??? ceFAZolin (Ancef) 2g in dextrose 5% 100 mL (2 x 1g/50mL premix bags) IV ??? oxyCODONE (Roxicodone) tablet 5-15 mg ??? aspirin EC tablet 81 mg ??? gabapentin (Neurontin) capsule 600 mg FOLLOWED BY [START ON 01/14/2020] gabapentin (Neurontin)capsule 300 mg ??? ketorolac (TORADOL) injection 15 mg ??? celecoxib (CeleBREX) capsule 200 mg ??? dexamethasone (Decadron) tablet 4 mg ??? aspirin EC tablet 81 mg ??? lactated Ringers 1,000 mL (01/12/20 1548) OBJECTIVE: Temp: [35.9 ??C (96.6 ??F)-37.3 ??C (99.1 ??F)] Heart Rate: [62-74] Resp: [13-23] BP: (69-161)/(42-84) Intake/Output Summary (Last 24 hours) at 01/12/2020 1628 Last data filed at 01/12/2020 1601 Gross per 24 hour Intake 1200 ml Output 875 ml Net 325 ml There is no height or weight on file to calculate BMI. PE: General: NAD, awake/alert CV: RRR assessed peripherally Resp: Breathing comfortably on RA LLE: Dressing c/d/i. Motor intact to EHL, FHL, TA. Sensation intact in foot/calf/thigh. Brisk capillary refill distally. Lab Results Component Value Date NA 136 01/12/2020 K 3.8 01/12/2020 CL 103 01/12/2020 CO2 21 (L) 01/12/2020 BUN 16 01/12/2020 CREATININE 0.88 01/12/2020 GLUCOSE 170 01/12/2020 CALCIUM 8.3 (L) 01/12/2020 Lab Results Component Value Date WBC 14.8 (H) 01/12/2020 HGB 13.6 (L) 01/12/2020 HCT 39.3 (L) 01/12/2020 MCV 88.9 01/12/2020 PLATELET 172 01/12/2020 Lab Results Component Value Date INR 1.0 01/11/2020 Imaging: AP Pelvis The left revised hip is reduced. There is no evidence of intra-op fracture. ASSESSMENT / PLAN: Dominick Castro is a 64 y.o. male Day of Surgery s/p left REGGIE. He is currently doing well with stable vitals. Given the history the episode of bradycardia and hypotension associated with nausea and blurry vision is consistent with a vasovagal response. He has responded well to fluids. We will check an EKG and labs to rule out other causes. Activity: WBAT LLE, enhanced precautions Closure: Resorbable sutures Dressing: Mepilex Ag x 7 eays Drain: none Anticoagulation: ASA 81mg BID for 30 days Antibiotics: periop cefazolin x 24 hrs Consults: PT/OT Dispo: per PT/OT Follow-up: 4 wks w/ Dr. Debbie Collins MD 01/12/2020 Future Appointments Date Time Provider Department Center 02/08/2020 1:[address] [facility] DX ROOM [address] MH Xray [facility] Rad 02/08/2020 2:30 PM Jack Lweis MD [facility] ORTH 3C [facility] Joselo Madrid - 01/12/2020 1:37 PM EDT Patient arrived to unit from PACU, Patient is alert and oriented x4, VS stable, No complaints of chest pain or trouble breathing, no nausea or vomiting. Pain is well controlled 5/10 on numeric pain scale. Pt due to void by 15:00. Pt has regained some function of LLE but spinal still affecting sensation at this time. Dressing to left hip clean dry and intact. See flow sheet for further assessments. Patient oriented to room and call shin. Call shin within reach. Will continue to monitor. Joselo Madrid II, RN Harriett Gallegos RN - 01/12/2020 1:01 PM EDT 1041: Pt. Arrived from OR to PA13. Monitors applied, alarms active and audible. 1300: Report to [facility]. documented in this encounter H&P Notes Andrea Pena MD - 01/12/2020 6:10 AM EDT The patient's history and physical exam have been reviewed and completed. There has been no intervalchange from that of the pre-operative history and physical exam done within the last 30 days. HEENT: NC/AT Cardiac: RRR, no m/r/g Respiratory: CTAB LLE: well-healed surgical scar over posterolateral aspect of hip, leg lengths approximately equal inlength, motor intact to EHL/FHL/ADF/APF, SILT s/s/t/sp/dp distributions, foot wwp. Plan to proceed to OR as scheduled for revision L REGGIE. Andrea Pena MD Orthopaedic Surgery PGY-2 documented in this encounter Miscellaneous Notes Plan of Care - Missy-Mckayla Lucero, PT - 01/13/2020 12:53 PM EDT Physical Therapy Evaluation Patient profile: Dominick Castro is a 64 y.o. male admitted on 01/12/[address] Jack Lewis MD for L REGGIE revision. Pt had Bilateral REGGIE 12 years ago. Pt developed L > R hip pain and dysfunction, 2/2 loosening of components. Pt with pre syncopal episode, POD 0. Patient with the following active problems: Past Medical History: Diagnosis Date ??? Chronic pain right shoulder and bilat hips ??? Liver disease hepatitis at age 14 ??? Post-operative nausea and vomiting Past Surgical History: Procedure Laterality Date ??? JOINT REPLACEMENT hipss Active Non-Hospital Problems Diagnosis ??? History of total hip arthroplasty ??? Migraines ??? Rotator cuff tear Social History: Home set-up: 2 story home. Could stay on ground floor and sleep in a recliner. Bedroom up a flight of stairs. Bathroom Set-up: NE Stairs: 1 VENANCIO without a railing and 13 stairs to bedroom, with a railing. 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 2 children at home, ages 14 and 16. Equipment at home: None Fall history: none Precautions/Special Considerations: WBAT LLE. Enhanced REGGIE precautions (posterior). Wedge pillow between LEs when in bed. Impulsive. Lines: Gregory. UE PIV Activity Orders: See above Diet: regular Mobility and Positioning Recommendations: ?? Pt. to utilize supervision and one person for ambulation and transfers with nursing. ?? Please encourage up to chair for meal times as able. ?? Pt encouraged to ambulate frequently with staff, getting into the bathroom for toileting and walking out in the cain >/= 3 times daily as able. Subjective: ???I know how to do this. I walked without a device almost right away after having a double REGGIE. I hardly hurt at all after surgery. I will do everything that I should once I get home. My family will make sure.?? Objective: Pt seen for evaluation today. Pain: Number Location At rest 3/10 L hip With activity /10 same Vital Signs: At Rest With Activity SpO2 (RA) 97% 98% BP (MAP) No dizziness -mmHg -mmHg HR 70s bpm 80s bpm Mental Status: alert, oriented to person, place, and time. Very talkative. Impulsive, moving most ofthe time before PT could educate properly and needed to redirect pt to slow down and listen. Vision: Glasses Skin: CDI L lateral hip dressing. L thigh with mild to mod swelling. Musculoskeletal: ROM: BUE and RLE AROM wfls. LLE AROM wfls for gait, transfers and bed mobility, w/in precaution limitations. Strength: BUEs strength grossly wfls. R quad 5/5, L quad 4-4+/5. B ant tibs >4/5. Sensation: Denied sensory deficits. Could locate all gross touch to distal extremities. Bed Mobility: Supine to Sit: L side of flat bed, modified independent Sit to Supine: Same Transfers: Sit to Stand: supervision with repeated cues to Keep L knee extended, to avoid > 90 degrees hip flex, supervision, multiple times with Crutches (repeatedly shown proper technique with crutches in one hand and pushing up from the chair Stand to Sit: same Gait: Distance: 350' Device used: axillary crutches adjusted for his height without shoes. Pt to lengthen by one notch when shoes are on. Level of assist: Close supervision with intermittent cues to slow pace Gait mechanics: 2 point, reciprocal gait pattern with tendency for fast pace. Stairs: up and down 13 stairs, close supervision and verbal cues for up with R and down with LLE first, as well as for proper crutch placement (perpendicular on one side), railing on the other. Up and down 4 curb steps, no railing, crutches, Supervision and cues for safety and technique. Balance: Sitting Static: good Sitting Dynamic: good Standing Static: good Standing Dynamic / Gait: Fair to fair+ with crutches. Therex: pt given post REGGIE ex sheet and performed: ankle pumps; add, quad, ham and glut sets; LLE heel slide; and LAQs. Education: patient has been educated on Bed mobility, Transfers, Assistive device/technique, Stairs,Exercise, Positioning, Safety , Precautions/protocol, Gait , Home program, Role of therapy, Balance and Discharge planning and verbalizes and needs reinforcement. understanding. Patient status, treatment, and mobility recommendations discussed with nursing. Pt left sitting withseat alarm in place. Ice pack to L hip. Assessment: Dominick Castro was seen today for physical therapy evaluation. Pt is POD 1 L REGGIE revision. Pt is functionally limited and in need of skilled PT 2/2 the following: mild post op pain, better than pre op; impulsiveness; mild anemia; enhanced REGGIE precautions; and impaired LLE strength and ROM,gait and transfers. Despite above issues, pt did not have any LOB. There is a concern that pt may not fully comply with REGGIE precautions, but he demonstrates the understanding of the potential risks if he does not. Multiple times pt wanted to put crutches aside and walk bed to the chair, unless I cued him to use them. He is WBAT but gait is still antalgic with LLE swelling and weakness present. He wastold to use the crutches until [facility] PT advanced him. Needed multiple cues to ext L knee forward with Sit<>stand to assure he does not exceed 90 degrees of hip flexion. Pt states family is very supportive and will help him with all needs. No LOB noted with crutches. Pt will have family with him when going up and down stairs, more to remind him of proper sequencing. Pt should continue with [facility] PT to address compliance with hip precautions, strengthening, gait, ROM, and mobility training. Pt knowsand demonstrates verbal understanding of hip precautions Discharge Recommendations: Based on the current findings, Anticipated Discharge Disposition: home with home health, home with assist when medically ready for hospital discharge. Consult Recommendations: No other consults recommended at this time. Equipment needs: Axillary crutches given to patient Goals: Safe for dc to home with family and [facility] support, using axillary crutches WBAT, following enhanced hip precautions. Plan: Therapy Frequency: evaluation only for therapy including balance training, bed mobility training, gait training, home exercise program, patient/family education, range of motion, stair training, strengthening and transfer training. Patient/family understand and agree with plan as stated above. 2017 PT Evaluation Code Rationale: ?? Diagnosis & Pertinent Co-Morbidities, personal factors, and present illness affecting Plan ofCare: (see above); Additional personal factors or co- morbidities that impact plan: ?? Total # of Factors: 0 1-2 3+ x ?? Examination of body system impairments, functional limitations and behaviors, and/or participation restrictions. Addressing 1-2 elements Addressing 3 + elements x Addressing 4 + elements ?? Clinical presentation: See assessment above. Stable/Uncomplicated Evolving/Fluctuating Symptoms Unstable/Unpredictable x ?? Clinical decision making of low complexity based on pt's functional performance as outlined in this evaluation. Time IN / OUT: 6307-3229 Total Evaluation Minutes, Physical Therapy: 27(Low complexity EV, TEF) MCKAYLA SINGLETON, PT Pager: [phone] Physical Therapy Inpatient Rehabilitation Department Plan of Care - Lincoln Philip, OT - 01/13/2020 10:52 AM EDT Occupational Therapy Evaluation Patient profile: Pt seen for evaluation s/p revision L REGGIE 01/12/20 (Dr. Lewis) Past Medical History: Diagnosis Date ??? Chronic pain right shoulder and bilat hips ??? Liver disease hepatitis at age 14 ??? Post-operative nausea and vomiting Past Surgical History: Procedure Laterality Date ??? JOINT REPLACEMENT hipss Social History: Patient lives w/ his , son (14) and daughter (26, disabled). Home Setup: 1 VENANCIO, once in the pt is set up on one level. Pt plans to sleep in a recliner. His bathroom down stairs is a low tub shower and pt reports he has a high toilet. 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 Precautions/Special Considerations: WBAT LLE, fall, enhanced hip precautions Subjective: My son will be home w/ me all the time right now, he and my will help me (w/ LB dressing). Objective: Seen today for OT evaluation and education re: ADL/IADL manage post op. Cognitive Status/Behavior: alert, oriented to person, place, and time Range of motion, strength, coordination: Bilateral UEs are within functional limitations RLE grossly WFL for ADL (pt reports plan for hip revision in future due to pain), LLE decreased strength, ROM, flexibility w/ enhanced precautions Sensation: subjectively intact to baseline Activities of Daily Living: Self-feeding: N/A-Independent with set up Hygiene/grooming: Pt stood at sink level and brushed teeth no overt LOB. Upper and lower body dressing and bathing: Pt issued and educated on use of sock aid and plastics supervisor, ptdonned socks, underpants, and pants w/ use of AE following initial verbal cues. Pt educated on tub transfer and verbalized understanding. Pt educated on benefit of a shower chair, pt verbalized understanding, reports he likely will not use. Toileting: Pt stood at toilet level and voided independently. Functional Mobility: Supine to sit: conditional independence w/ HOB slightly elevated Sit to stand: conditional independence w/ FWW Ambulation: conditional independence with walker, 150 ft Stand to sit: conditional independence w/ FWW Balance: steady with use of walker. IADL???s: Assistance available to patient. Pain: Pt reported pain as tolerable L hip. Vitals: 134/76 pt reported no LH or dizziness Education: family and patient have been educated [...] the following areas of occupation: dressing, bathing, transfers/mobility, rest/sleep, home management, work, leisure, driving and community mobility. However, despite the deficits listed above pt demonstrates the ability to perform bed mobility, LB dressing w/ use of AE, standing ADL tasks, and functional mobility w/ AD. Pt educated on modified techniques and safety performing ADL/IADLs, pt verbalized/demonstrated understanding. Anticipate that pt will return home with assistance from his family once medically ready. Do not anticipate further OT needs while hospitalized. Equipment needs at discharge: shower chair recommended Anticipated Discharge Disposition: home with assist, home with home health(PT only) Plan: Monitor pt until formal d/c. Eval Date: 01/13/2020 Total Evaluation Minutes, Occupational Therapy: 48(eval + dc) 2017 OT Evaluation Code Rationale: ?? Diagnosis [...] instrument andmeasurable assessment of functional outcome. Pager: [phone] Lincoln Philip OT 01/13/2020 Occupational Therapy Rehabilitation Department Initial Assessments - Bobbi Carlos RN - 01/13/2020 8:30 AM EDT Office of Care Management Assessment Medical record reviewed. Plan of care and patient status discussed with direct care RN and/or Care Team. Screening: Present on Admission: ??? s/p revision L REGGIE 01/12/20 (Dr. Lewis) Patient has not been admitted to a hospital within the last 30 days. Patient receiving hospital care under Inpatient status. Admission order reviewed. Primary Insurance on file: [employer] Secondary Insurance on file: MEDICARE Prescription Insurance: Yes Primary care provider on file: None None Coty Montes MD,message out to harvey to update the chart Advance Directive on file and Code Status: <no information>, Full Code Functional Status prior to admission independent Functional Status current: assist of staff Living Situation: will be staying at: [address] [place] [address] [address] [facility] [id number] Supports: spouse Ele, son and daughter ( will be staying with patient at home) DME:tbd, used crutches after previous surgery Home Health: [facility] for PT This author reviewed a list of Home Health Agencies/DME vendors which serve their preferred geographic area. Affiliations were reviewed with them and they were educated about their right to choose where referrals are placed. Patient requests referral to [facility] PHONE: [phone] FAX: [phone] Expected date of discharge: 01/13/2020 Assessment: Patient with no apparent or limited RNCM/SW needs at this time. No housing, transportation, insurance, resources concerns identified at this time. Supports in place to achieve a safe post-hospital transition. No identified barriers to accessing necessary care and/or follow-up after discharge. Plan: Patient to d/c to home via private car ( spouse to drive when medically ready. inspector crystal/[employer] will continue to follow patient???s progress and remain available if situation changes for coordination of care, psychosocial support and/or discharge planning. Bobbi Carlos RN Pager [phone] Plan of Care - Francisca Ravi RN - 01/13/2020 2:45 AM EDT Problem: Patient Care Overview Goal: Plan of Care Review Outcome: Ongoing (Interventions Implemented as Appropriate) 01/13/20 0240 Coping/Psychosocial Plan Of Care Reviewed With patient Plan of Care Review Progress progress toward functional goals is gradual OUTCOME EVALUATION NOTE: OUTCOME SUMMARY: Pt A+O, VSS. Rested well between care overnight. PRN oxycodone controlling pain. Abductor pillow in place, on enhanced hip precautions. Voiding without issue in urinal. Not OOB overnight since vasovagal episode yesterday. No other acute events, will continue to monitor. PLAN MOVING FORWARD: Pain control, mobilize PT/OT, d/c planning INDIVIDUALIZED FALL PREVENTION INTERVENTIONS: Patient-specific fall risk factors per assessment: [current deficits]: Pain, narcotics, recent surgery, generalized weakness Assistance [level of assistance required for transfers and ambulation]: 2 assist w/ FWW Supervision [direct monitoring required during toileting and ADLs]: Hands on Surveillance [continuous indirect monitoring]: Masimo, purposeful rounding, bed alarm Patient-specific fall prevention interventions for sensory deficits provided, if applicable: [X] N/A CPG GOAL OUTCOME EVALUATION: Consult Note - Michelle Li RN - 01/12/2020 5:02 PM EDT @ 1415 this afternoon was called for HERT for bradycardia and hypotension. Arrived to find pt in bedawake, speaking clearly but pale and diaphoretic. Pt noted on telemetry to be in sinus bradycardai w/ rate noted in high 30's low 40's. Bp noted to be 60's/40's. Pt was immediately placed in trendelenburg position. Upon repositioning pt had improving color to face and HR increased to the 60's in a sinus rhythm noted. @ 1420 Orthopedic PA arrived to bedside. During this pt stated that he had just taken some new medications, protonix and tylenol. Pt also stated that he had quickly gone from a lying position to sitting position when he started to note vision changes. Pt denies feeling of impending LOC. Pt denies any CP or other pain at this time. HR continues to increase into the 70's. Pt is stating that he is feeling 100% better. @ 1430 pt was taken out of trendelenburg position to just supine. Pt continues to state he is feeling much better. Pt is currently receiving 500 ml bolus of LR. POC at this time is to continue to monitor. Pt will finish bolus, have labs drawn and EKG. Advised primary RN to call if further complications arouse. He verbalized understanding. Pt continues to improve and vitals are stable at this time. Thank you for letting me participate in his cares. Michelle Baker RN Life safety Pg [phone] Plan of Care - Joselo Madrid - 01/12/2020 4:58 PM EDT Problem: Patient Care Overview Goal: Plan of Care Review Outcome: Ongoing (Interventions Implemented as Appropriate) 01/12/20 1652 Coping/Psychosocial Plan Of Care Reviewed With patient Plan of Care Review Progress improving OUTCOME EVALUATION NOTE: OUTCOME SUMMARY: Patient progressing towards d/c goals appropriately at this time. Patient's pain adequately controlled with scheduled pain medications and PRN, See MAR. Pt had what was determined to be a vasovagal episode while lying in bed around 14:00 see progress note for event details. Pt began voiding spontaneously during shift, will continue to bladder scan. Pt very anxious to get up plan is to sit up after food and medication. Pt got up to edge of bed BP 157/102 and felt fin, then stood at edge of bed marched in place all and still felt fine. The pt sat in chair and immediatly said he felt light headed, BP 90/46, HR dropped to 50's pt was laid back chair and slid back to bed. Put in trendelenburg position BP came back up to 103/72, team aware. Will continue to monitor and help patient reach d/c goals. PLAN MOVING FORWARD: Pain control Mobilize Monitor PVRs D/c planning INDIVIDUALIZED FALL PREVENTION: Patient is currently a high risk to Fall. Patient educated on bed/chair alarm, demonstrates proper use of call shin and verbalizes understanding of fall preventions implemented. Patient-specific fall risk factors per assessment: [current deficits]: Vasovagal event, Pain, Medications, Hospital Environment. Assistance [level of assistance required for transfers and ambulation]: 2 person assist w/ FWW Supervision [direct monitoring required during toileting and ADLs]: Hands on with ADL's Surveillance [continuous indirect monitoring]: Masimo, Purposeful Rounding, Nurse Knowledge Exchange Patient-specific fall prevention interventions for sensory deficits provided, if applicable: NA CPG GOAL OUTCOME EVALUATION: Goal: Fall Prevention-Safe Patient Handling Outcome: Ongoing (Interventions Implemented as Appropriate) 01/12/20 165 Restraint Interventions Safety Promotion/Fall Prevention activity supervised;elopement precautions initiated;fall preventionprogram maintained;nonskid shoes/slippers when out of bed Activity Activity Type activity adjusted per tolerance Activity Assistance Provided assistance, 2 people Assistive Device Utilized front-wheel walker Positioning Body Position independent Daily Care Interventions Self-Care Promotion independence encouraged;BADL personal objects within reach;BADL personal routines maintained [place] Fall Risk History of Falling 0 Secondary Diagnosis 15 Ambulatory Aids 15 Intravenous Therapy/Heparin/Saline Lock 20 Gait/Transferring 10 Mental Status 0 Score 60 Goal: Infection Control Outcome: Ongoing (Interventions Implemented as Appropriate) 01/12/201651 Safety Interventions Isolation Precautions standard precautions maintained Infection Prevention environmental surveillance performed;rest/sleep promoted Coping Strategies Supportive Measures active listening utilized;decision-making supported;self- reflection promoted;self-responsibility promoted;verbalization of feelings encouraged Goal: Discharge Needs Assessment Outcome: Ongoing (Interventions Implemented as Appropriate) 01/12/201649 Discharge Needs Assessment Concerns To Be Addressed no discharge needs identified Readmission Within The Last 30 Days no previous admission in last 30 days Provider Choice List(s) Given no Equipment Needed After Discharge walker, rolling Discharge Disposition still a patient Current Health Anticipated Changes Related to Illness none Activity/Self Care Review of Systems Equipment Currently Used at Home none Living Environment Transportation Available family or friend will provide Goal: Interdisciplinary Rounds/Family Conf Outcome: Ongoing (Interventions Implemented as Appropriate) 01/12/201649 Interdisciplinary Rounds/Family Conf Participants patient;physical therapy;nursing Op Note - Jack Lewis MD - 01/12/2020 11:08 AM EDT [facility] Operative Note Patient Name: Dominick Castro : [id number] MR#: [id number] Case Date: 01/12/2020 Surgeon: Surgeon(s) and Role: * Jack Lewis MD - Primary * Andrea Pena MD - Resident Preoperative diagnosis: Failed Left REGGIE Postoperative diagnosis: 1. 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 Extensive proximal femoral osteolysis Procedure(s) (LRB): @TOTAL HIP REVISION ARTHROPLASTY, COMPLETE (WRVU 30.28) (Left) MODIFIER RECLAIM DEPUY (Left) MODIFIER PINNACLE ACETABULUM DEPUY (Left) MODIFIER CABLES AND PINS IMPLANTS SYNTHES (Left) Anesthesia: Spinal Estimated Blood Loss: 300 mL Specimens removed during surgery: JOint fluid sent for cell count and culture. Synovium sent for permanent path for metallosis vs ALVAL Order Name Source Comment Collection Info Order Time SPECIMEN TO PATHOLOGY Left hip synovium r/o metalosis vs isha Failed Left REGGIE left hip excision 01/12/2020 8:46 AM Time specimen removed from patient: 8:45 AM Number of tissue samples (in container) 1 [...] [address] Jonh Christensen utilizing modular cxugh-fq-ixwzh bearings. Approximately 2 years ago imaging was [...] and a sed rate of 6 mm/h. Caspar and chromium were both elevated with a chromium of 1.7 ng/mL and a cobalt of 5.6 ng/mL. Given the qfqxc-kq-adkjw articulations, his elevated metal ions, and new pain I recommended revision of his left total hip arthroplasty. We discussed risks of revision arthroplasty including infection, limb length discrepancy, hip instability, fracture, and continued metal ion generation due to the presence of his retained right xvrsp-qe-lvrfc hip. We also discussed potential need for blood transfusion, blood clots and pulmonary embolism, and medical complications up to and including . Despite these risks the patient wished to proceed with a left revision total hip arthroplasty and informed consent was signed in clinic. Findings: Dark metal stained fluid aspirated from joint prior to arthrotomy and sent for STAT cell count and standard culture. Cell count returned as 266 nucleated cells. Differential was unable to be obtained due to significant metal debris. There was necrotic friable joint capsule encountered but noinvolvement of the abductor. The femoral stem was grossly loose and removed without further bone loss. Significant amount of friable necrotic osteolytic bone was removed from proximal femur. Acetabularcomponent was well fixed. There was significant backside corrosive wear seen on the Ultamet CoCr liner and on the inner surface of the acetabulum. Complete synovectomy performed. With new femoral stem in place the hip was stable to 90/10/70. Procedure Description: The patient was identified in the preoperative holding area where his historyand physical and surgical consent were reviewed and confirmed. His left hip was again identified as the operative site and this was marked with a green false pass per [facility] protocol. The patient was broughtto the operating room and spinal anesthesia was [...] confirm preoperative limb alignment. The patient was administered 2 g of intravenous cefazolin as well as weight-based 15 mg/kg tranexamic acid prior to incision. A surgical timeout was held to confirm the patient's identity, the planned surgical procedure including site and laterality and to address any safety concerns. There were no safety concerns and all parties agreed to proceed. Patient's left lower extremity was then circumferentially prepped with chlorhexidine soap, alcohol, and ChloraPrep and was draped in standard sterile fashion using an Aufranc technique to isolate the perineum. We began by excising the patient's previous [...] bleeding was meticulously controlled with the Bovie. The hip was then aspirated for 20 cc of dark black metal stained fluid. This was free-flowing and nonpurulent. This was sent for stat cell count as well as culture. The cell count returned after the surgery with 266 nucleated cells and no differential could be performed due to substantial amount of metal debris. A posterior arthrotomy was then performed beginning [...] able to gently dislocate the hip posteriorly. In trying to dislodge the head from the trunnion the entire stem was noted to be loose and was removed by hand without further bone loss. The proximal femur was full of necrotic friable bone and soft tissue. We then placed a cobra retractor over the anterior column and gently retracted the femur anteriorly.A complete anterior, superior, and inferior synovectomy was performed removing all necrotic material. The Ultamet liner extractor tool was then placed into 1 of the derotation notches on the [place] cup and the liner was easily removed. The cup was vigorously challenged with a bone tamp and a mallet and no micromotion or fluid wave was seen. I removed the insertion hole cover and the bone beneath the cup was intact. The acetabulum was thoroughly irrigated with pulse lavage normal saline and any corrosion material in the acetabulum was removed with a sponge on a stick. I ensured that the entire rimof the cup was exposed and then impacted a new 58 mm x 40 mm neutral alignment polyethylene and noted the locking mechanism to fully engage. The acetabular retractors were then removed and attention returned to the femur. Reverse Anirudh curettes were used to meticulously debride the necrotic material from the proximal femur. A long 6 mm drill was used to break through the distal pedestal and open the distal femoral canal. A ball-tipped guidewire was then passed and beginning with an 8.5 mm flexible reamer the canal was reamed sequentially to open the pedestal up to a 13 mm reamer. The 14 mm straight reclaim reamer was then passed on hand to the 85 mm depth at the tip of the greater trochanter. The proximal cleanoutreamer was used to prepare the proximal femur for the reamer handles. We then began sequentially reaming beginning with a 15 mm straight reamer on power up to a 20 mm reamer to the appropriate 85 mm depth. We had excellent endosteal contact and squeal with a 20 mm reamer. We then impacted a 140 mm x 20 mm reclaim distal stem which sat at the appropriate depth with excellent axial and rotational stability. The proximal alignment josué was attached and [...] attached to the trunnion and this was reduced into the cup. Leg lengths were assessed and were appropriate. Hip stability was checked and the hip was stable at 90 degrees of flexion, 10 degrees of abduction, and 70 degrees of internal rotation. There was no shock in the soft tissue envelope was appropriately tensioned. Satisfied with the hip alignment and stability the hip was gently dislocated and the trial components were removed. The real 85 mm x24 mm proximal body was opened and was impacted over the distal stem. The [place] taper was appropriately engaged according to blueprint maker instructions. The locking bolt was inserted and tightened to the appropriate torque. A 40 mm +1.5 mm ceramic head with inner titanium sleeve was then impacted onto the cleaned and dried trunnion. 30 cc of cancellus bone chips were opened and were packed around the proximal femur as bone graft. The hip was then thoroughly irrigated and gently reduced. Leg lengths and hip stability were again checked and confirmed. The posterior capsule, gluteus darlyn, and abductor were injected with 50 cc of local anesthetic cocktail consisting of quarter percent Marcaine, 50 mcg of clonidine, and 30 mg of Toradol. The posterior capsule was reapproximated to the [...] with a running 3-0 Monocryl suture and sealed with Dermabond skin glue. A sterile Mepilex Ag dressing was applied. The patient was placed into an abduction pillow, aroused from anesthesia and taken to the recovery area in stable condition having suffered no apparent complications. All needle and sponge counts were correct at the conclusion of the case. Implant Name Type Inv. Item Serial No. Hearing Instrument Specialist Lot No. LRB No. Used Action LINER,PINN,ACET,NEUT,40X58 ([id number]) (AutoReq) - [id number] IMPLANTS LINER,PINN,ACET,NEUT,40X58 ([id number]) (AutoReq) [employer] [id number] Left 1 Implanted STEM,REC,DIST,TPR,[id number] ([id number]) (AUTOREQ) - [id number] IMPLANTS STEM,REC,DIST,TPR,[id number] ([id number]) (AutoReq) [employer] [id number] Left 1 Implanted CONE,BODY,RECLAIM,PRX,24X85 ([id number]) (AUTOREQ) - [id number] IMPLANTS CONE,BODY,RECLAIM,PRX,24X85 ([id number]) (AutoReq) [employer] [id number] Left 1 Implanted HEAD,DLTA,CRMC,+1.5,12/14,40MM ([id number]) (AUTOREQ) - [id number] IMPLANTS HEAD,DLTA,CRMC,+1.5,12/14,40MM ([id number]) (AutoReq) [employer] [facility] N[employer]OR [id number] Left 1 Implanted BONE,CRUSHED,CANCELLOUS,30CC ([id number]) (AutoReq) - [id number] IMPLANTS BONE,CRUSHED,CANCELLOUS,30CC ([id number]) (AutoReq) [facility] [id number] Left 1 Implanted Attestation: Case Date: 01/12/2020 I was present and I participated during the entire procedure (does not need to include opening and closing). Jack Lewis MD 01/12/2020 Brief Op Note - Andrea Pena MD - 01/12/2020 10:59 AM EDT Brief Operative Note Patient Name: Dominick Castro : [id number] MR#: [id number] Case Date: 01/12/2020 Surgeon: Surgeon(s) and Role: * Jack Lewis MD - Primary * Andrea Pena MD - Resident Preoperative diagnosis: Failed Left REGGIE Postoperative diagnosis: Failed Left REGGIE Procedure(s) (LRB): @TOTAL HIP REVISION ARTHROPLASTY, COMPLETE (WRVU 30.28) (Left) MODIFIER RECLAIM DEPUY (Left) MODIFIER PINNACLE ACETABULUM DEPUY (Left) MODIFIER CABLES AND PINS IMPLANTS SYNTHES (Left) Anesthesia: Spinal Findings: cloudy, darkly discolored hip fluid on aspiration. Synovial fluid cell count 244. Femoral component grossly loose and easily removed. Acetabular component with some bone loss over lateral most portion of cup, but well-fixed. Appreciable corrosion of femoral head and acetabular liner. DePuy Synthes Reclaim [id number] stem, ceramic 40mm +1.5 12/14 taper femoral head, and [id number] poly liner placed. Metaphysis packed with cancellous bone chips around implant. Wound closed with resorbable sutures. Post-op plan: WBAT LLE, enhanced hip precautions x 3 months. ASA 81mg BID x 30 for DVT ppx. Hilda-op abx. Mepilex Ag dressing to remain in place x 7 days. Plan for f/u 4 wks post-operativley Complications: none Estimated Blood Loss: 300 mL Specimens removed during surgery: Order Name Source Comment Collection Info Order Time SPECIMEN TO PATHOLOGY Left hip synovium r/o metalosis vs isha Failed Left REGGIE left hip excision 01/12/2020 8:46 AM Time specimen removed from patient: 8:45 AM Number of tissue samples (in container) 1 Fluids: Intraprocedure Crystalloid Total None PRBCs: none (See Anesthesia Record/Report for Other Blood Products) Urine Output: (no urine output recorded) Drains: none Disposition: aroused from sedation, and taken to the recovery room in a stable condition Condition: doing well without problems (Please see the Surgical Encounter Summary for any Implant and Specimen details pertinent to this patient.) Infection Bundle used? N/A Brief Op Note - Jack Lewis MD - 01/12/2020 10:31 AM EDT Brief Operative Note Patient Name: Dominick Castro : [id number] MR#: [id number] Case Date: 01/12/2020 Surgeon: Surgeon(s) and Role: * Jack Lewis MD - Primary * Andrea Pena MD - Resident Preoperative diagnosis: Failed Left REGGIE Postoperative diagnosis: 1. 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 Extensive proximal femoral osteolysis Procedure(s) (LRB): @TOTAL HIP REVISION ARTHROPLASTY, COMPLETE (WRVU 30.28) (Left) MODIFIER RECLAIM DEPUY (Left) MODIFIER PINNACLE ACETABULUM DEPUY (Left) MODIFIER CABLES AND PINS IMPLANTS SYNTHES (Left) Anesthesia: Spinal Findings: Dark metal stained fluid aspirated from joint prior to arthrotomy and sent for STAT cell count and standard culture. There was necrotic friable joint capsule encountered but no involvement ofthe abductor. The femoral stem was grossly loose and removed without further bone loss. Significant amount of friable necrotic osteolytic bone was removed from proximal femur. Acetabular component was well fixed. There was significant backside corrosive wear seen on the Ultamet CoCr liner and on the inner surface of the acetabulum. Complete synovectomy performed. With new femoral stem in place the hip was stable to 90/10/70. Complications: None Intake: Intraprocedure Crystalloid Total Anesthesia Output Blood Loss 300 mL lactated ringers infusion Volume (mL) 700 mL Transfusion No data found in the last 1 encounters. Output: Estimated Blood Loss: 300 mL Urine Output:: (no urine output recorded) Other Output: (no other output recorded) Drains: none Specimens removed during surgery: Joint fluid aspirated for cell count and culture. Synovium sent for permanent pathology for metallosis vs ALVAL. Order Name Source Comment Collection Info Order Time SPECIMEN TO PATHOLOGY Left hip synovium r/o metalosis vs isha Failed Left REGGIE left hip excision 01/12/2020 8:46 AM Time specimen removed from patient: 8:45 AM Number of tissue samples (in container) 1 Disposition: aroused from sedation, and taken to the recovery room in a stable condition Condition: doing well without problems Attestation: Case Date: 01/12/2020 I was present and I participated during the entire procedure (does not need to include opening and closing). (Please see the Surgical Encounter Summary for any Implant and Specimen details pertinent to this patient.) documented in this encounter Plan of Treatment Upcoming Encounters Date Type Specialty Care Team Description 07/08/2022 Office Visit Radiation Oncology Shelley Kimble APRN [facility] [place] [facility] (Wo rk) documented as of this encounter Procedures Procedure Name Priority Date/Time Associated Comments Diagnosis HEMOGRAM Routine 01/13/2020 5:25 AM Results f or this EDT procedure are i n the results section. DIFFERENTIAL, Routine 01/13/2020 5:25 AM Results for this AUTOMATED EDT procedure are i n the results section. HC VENIPUNCTURE Routine 01/13/2020 5:25 AM EDT BASIC METABOLIC PANEL Routine 01/13/2020 5:25 AM Results for this (NON-FASTING) EDT procedure are in the results section. EKG 12-LEAD STAT 01/12/2020 5:00 PM Failure of left Result s for this EDT total hip procedure are i n arthroplasty, the results subsequent section. encounter HC VENIPUNCTURE Routine 01/12/2020 2:57 PM Result s for this EDT procedure are i n the results section. BASIC METABOLIC PANEL Routine 01/12/2020 2:57 PM Results for this (NON-FASTING) EDT procedure are in the results section. EKG 12-LEAD STAT 01/12/2020 2:48 PM Failure of left Result s for this EDT total hip procedure are i n arthroplasty, the results subsequent section. encounter XR PELVIS Routine 01/12/2020 11:44 Results for this AM EDT procedure are i n the results section. SURGICAL PATHOLOGY Routine 01/12/2020 8:46 AM Res ults for this REPORT EDT procedure are i n the results section. SPECIMEN TO PATHOLOGY Routine 01/12/2020 8:46 AM Results for this EDT procedure are i n the results section. ANAEROBIC CULTURE Routine 01/12/2020 8:35 AM Resu lts for this EDT procedure are i n the results section. HC BODY FLUID CULTURE Routine 01/12/2020 8:35 AM EDT BODY FLUID CULTURE, Routine 01/12/2020 8:35 AM Re sults for this AEROBIC EDT procedure are i n the results section. HC BODY FLUID CELL CT STAT 01/12/2020 8:35 AM Results for this W/DIFF EDT procedure are i n the results section. MODIFIER CABLES AND Yes 01/12/2020 7:44 AM Failed Left REGGIE PINS IMPLANTS SYNTHES EDT MODIFIER PINNACLE Yes 01/12/2020 7:44 AM Failed Left REGGIE ACETABULUM DEPUY EDT MODIFIER RECLAIM Yes 01/12/2020 7:44 AM Failed Left REGGIE DEPUY EDT @TOTAL HIP REVISION Yes 01/12/2020 7:44 AM Failed Left REGGIE ARTHROPLASTY, EDT COMPLETE (WRVU 30.28) documented in this encounter Results XR Pelvis and Hip 2 Views Left (02/08/2020 1:34 PM EDT) Anatomical Region Laterality Modality Pelvis, Hip Left Digital Radiography Specimen (Source) Anatomical Location Collection Method / Collectio n Time Received Time / Laterality Volume Impressions 02/08/2020 1:40 PM EDT 1. ??Status post revised left total hip arthroplasty. Periprosthetic lucencies are unchanged radiographic appearance wh en compared to immediate postoperative radiographs. 2. ??Status post right total hip arthrop lasty with unchanged periprosthetic osteolysis. Thank you for letting us participate in the care of this patient. For questions regarding this report, please contact e number below. ? Narrative 02/08/2020 1:40 PM EDT EXAMINATION: XR PELVIS AND HIP 2 VIEWS LEFT CLINICAL HISTORY: s/p revision L REGGIE 12/15 , assess hardware location (as entered by ordering provider in the orde r requisition) TECHNIQUE: Low AP view the pelvis. AP and frog leg lateral views of the left hip. COMPARISON: Pelvic radiograph . Pelvic an d bilateral hip radiographs 07/20/2019. FINDINGS: Status post revised left total hip arthr oplasty. Lobulated periprosthetic lucency around the long left femoral venancio m are similar when compared to the immediate postoperative radiograph 2019. Unchanged medial cortical thickening of the proximal femur. No per iprosthetic fracture. No change in alignment. Right: Status post right total hip arthr oplasty. Lobulated lucencies around the right femoral stem are similar when comp ared to preoperative radiographs from 07/20/2019. Static fracture Procedure Note Dayanara Faye MD - 02/08/2020Formattin g of this note might be different from the original. EXAMINATION: XR PELVIS AND HIP 2 VIEWS L EFT CLINICAL HISTORY: s/p revision L REGGIE 12/15 , assess hardware location (as entered by ordering provider in the orde r requisition) TECHNIQUE: Low AP view the pelvis. AP and frog leg lateral views of the left hip. COMPARISON: Pelvic radiograph . Pelvic an d bilateral hip radiographs 07/20/2019. FINDINGS: Status post revised left total hip arthr oplasty. Lobulated periprosthetic lucency around the long left femoral venancio m are similar when compared to the immediate postoperative radiograph 2019. Unchanged medial cortical thickening of the proximal femur. No per iprosthetic fracture. No change in alignment. Right: Status post right total hip arthr oplasty. Lobulated lucencies around the right femoral stem are similar when comp ared to preoperative radiographs from 07/20/2019. Static fracture IMPRESSION 1. Status post revised left total hip ar throplasty. Periprosthetic lucencies are unchanged radiographic appearance wh en compared to immediate postoperative radiographs. 2. Status post right total hip arthropla sty with unchanged periprosthetic osteolysis. Thank you for letting us participate in the care of this patient. For questions regarding this report, please contact e number below. Jack Lewis MD IMG DX ORDERABLES (ABNORMAL) Differential, Automated (01/13/2020 5:25 AM EDT) [facility] Method Time Signature Neutrophils % 77.6 % [facility] Neutr Abs (ANC) 9.66 (H) 1.70 - [facility] 6.10 [facility] x10(3)/[facility] LABORATORY Lymphocytes % 11.7 % [facility] Lymphocytes Abs 1.5 0.9 - 3.2 [facility] x10(3)/[facility] LABORATORY Monocytes % 10.2 % [facility] Monocyte Abs 1.3 (H) 0.3 - 0.9 [facility] x10(3)/[facility] LABORATORY Eosinophils % 0.0 % [facility] Eosinophils Abs 0.0 0.0 - 0.4 [facility] x10(3)/[facility] LABORATORY Basophils % 0.2 % [facility] Basophils Abs 0.0 0.0 - 0.1 [facility] x10(3)/[facility] LABORATORY Immature Gran % 0.30 % [facility] Comment: Immature granulocytes(IG's)percentage an d absolute count will include metamyelocytes, myelocytes, and promyelo cytes. Blood smears from CBCs yielding IG's will be scanned manually for concor dankiet. If this scan disagrees with the automated IG or if promyelocytes are not ed, a manual differential will be performed. Sarai Gran Abs 0.04 0.00 - 0.04 x10(3)/[facility] Specimen Anatomical Collection Method Collection Time Receive d Time (Source) Location / / Volume Laterality Blood specimen 01/13/2020 5:25 AM 020 6:09 (specimen) EDT AM EDT Resulting Agency Comment Spec In Lab Andrea Pena MD HEMATOLOGY ORDERABLES Performing Organization Address City/State/[place] [address] (ABNORMAL) Hemogram (01/13/2020 5:25 AM EDT) Analysis Performed At Patho logist Time Signature WBC 12.4 (H) 4.0 - 9.5 [facility] x10(3)/[facility] LABORATORY RBC 3.98 (L) 4.58 - [facility] x10(6)/[facility] LABORATORY Hemoglobin 12.0 (L) 13.7 - [facility] 16.5 gm/dL [facility] Hematocrit 37.0 (L) 40.5 - [facility] ROBERT 48.5 % [facility] MCV 93.0 82.9 - [facility] 93.1 [facility] LABORATORY MCH 30.2 27.5 - [facility] ROBERT 32.1 pg [facility] MCHC 32.4 32.0 - [facility] 35.7 gm/dL [facility] Platelets 175 145 - 357 [facility] x10(3)/[facility] LABORATORY RDWSD 44.7 36.0 - [facility] ROBERT 45.0 [facility] RDWCV 13.2 11.4 - [facility] ROBERT 13.8 % [facility] MPV 12.7 7.6 - 12.9 [facility] LABORATORY nRBC % Auto 0.0 % [facility] nRBC Abs Auto 0.000 0.000 - [facility] 0.000 [facility] x10(3)/[facility] LABORATORY Specimen Anatomical Collection Method Collection Time Receive d Time (Source) Location / / Volume Laterality Blood specimen 01/13/2020 5:25 AM 020 6:09 (specimen) EDT AM EDT Resulting Agency Comment Spec In Lab Andrea Pena MD HEMATOLOGY ORDERABLES Performing Organization Address City/State/[place] [address] (ABNORMAL) Basic Metabolic Panel (non-fasting) (01/13/2020 5:25 AM EDT) P athologist Signature Glucose Lvl 136 65 - 199 [facility] mg/dL [facility] Comment: Diabetes: >=200 mg/dL plus symp toms BUN 14 10 - 20 mg/dL [facility] Creatinine 0.87 0.80 - 1.50 mg/dL [facility] Sodium 140 135 - 145 mmol/L [facility] Potassium 4.2 3.5 - 5.0 mmol/L [facility] Comment: Please note: ??Patients with WBC >100,00 0 may have falsely elevated Potassium levels. ??For accurate Potassium quantif ication in these patients send serum separator tube (gold top) for subsequent determinations. ??Contact the Clinical Chemistry Laboratory if there are any qu estions. Chloride 105 98 - 107 mmol/L [facility] CO2 23 22 - 31 mmol/L [facility] Anion Gap 12 5 - 15 mmol/L [facility] Calcium 8.4 (L) 8.5 - 10.5 mg/dL [facility] Estimated GFR 91 >=60 mL/min/1.73 m?? [facility] Comment: The eGFR was calculated using the CKD-EP I equation. As with all creatinine based estimates of kidney function, eGFR values calculated with the CKD-EPI equation are not accurate in patients wi th acute kidney failure, extremes of body mass or the acutely ill. [email or web address] eGFR 105 >=60 mL/min/1.73 m?? [facility] Comment: The eGFR was calculated using the CKD-EP I equation. As with all creatinine based estimates of kidney function, eGFR values calculated with the CKD-EPI equation are not accurate in patients wi th acute kidney failure, extremes of body mass or the acutely ill. [email or web address] Specimen Anatomical Collection Method Collection Time Receive d Time (Source) Location / / Volume Laterality Blood specimen 01/13/2020 5:25 AM 020 6:09 (specimen) EDT AM EDT Resulting Agency Comment Spec In Lab Jack Lewis MD CHEMISTRY ORDERABLES Performing Organization Address City/[facility]/[place] [address] EKG 12 Lead (01/12/2020 5:00 PM EDT) Component Value Ref Range Test Analysis Performed Pathologis t Method Time At Signature Ventricular rate 84 BPM MUSE SYSTEM Atrial Rate 84 BPM MUSE SYSTEM P-R Interval 172 ms MUSE SYSTEM QRS Duration 72 ms MUSE SYSTEM Q-T Interval 386 ms MUSE SYSTEM QTC Calculated 456 ms MUSE SYSTEM (Bezet) Calculated P Terry 48 degrees MUSE SYSTEM Calculated R Terry 42 degrees MUSE SYSTEM Calculated T Terry 46 degrees MUSE SYSTEM INTERPRETATION Normal sinus rhythm MUSE SYSTEM Nonspecific ST and T wave abnormality Abnormal ECG When compared with ECG of 12-JAN-2020 14:48, Nonspecific T wave abnormality has repla rafiq inverted T waves in Inferior leads Confirmed by MD Magy, Juan José Muñoz ([id number]) on 01/13/2020 10:35:4 8 AM Specimen Anatomical Collection Method Collection Time Receive d Time (Source) Location / / Volume Laterality 01/12/2020 5:00 PM 0 EDT 10:35 AM EDT Jack Lewis MD ECG ORDERABLES Performing Organization Address City/[facility]/ZIP Code Phon e Number MUSE SYSTEM (ABNORMAL) Basic Metabolic Panel (non-fasting) (01/12/2020 2:57 PM EDT) P athologist Signature Glucose Lvl 170 65 - 199 [facility] mg/dL [facility] Comment: Diabetes: >=200 mg/dL plus symp toms BUN 16 10 - 20 mg/dL [facility] Creatinine 0.88 0.80 - 1.50 mg/dL [facility] Sodium 136 135 - 145 mmol/L [facility] Potassium 3.8 3.5 - 5.0 mmol/L [facility] Comment: Please note: ??Patients with WBC >100,00 0 may have falsely elevated Potassium levels. ??For accurate Potassium quantif ication in these patients send serum separator tube (gold top) for subsequent determinations. ??Contact the Clinical Chemistry Laboratory if there are any qu estions. Chloride 103 98 - 107 mmol/L [facility] CO2 21 (L) 22 - 31 mmol/L [facility] Anion Gap 12 5 - 15 mmol/L [facility] Calcium 8.3 (L) 8.5 - 10.5 mg/dL [facility] Comment: result rechecked- Estimated GFR 90 >=60 mL/min/1.73 m?? [facility] Comment: The eGFR was calculated using the CKD-EP I equation. As with all creatinine based estimates of kidney function, eGFR values calculated with the CKD-EPI equation are not accurate in patients wi th acute kidney failure, extremes of body mass or the acutely ill. [email or web address] eGFR 104 >=60 mL/min/1.73 m?? [facility] Comment: The eGFR was calculated using the CKD-EP I equation. As with all creatinine based estimates of kidney function, eGFR values calculated with the CKD-EPI equation are not accurate in patients wi th acute kidney failure, extremes of body mass or the acutely ill. [email or web address] Specimen Anatomical Collection Method Collection Time Receive d Time (Source) Location / / Volume Laterality Blood specimen 01/12/2020 2:57 PM 020 3:29 (specimen) EDT PM EDT Resulting Agency Comment Spec In Lab Jack Lewis MD CHEMISTRY ORDERABLES Performing Organization Address City/State/ZIP Code Phon e Number [address] (ABNORMAL) Hemogram (01/12/2020 2:57 PM EDT) Analysis Performed At Patho logist Time Signature WBC 14.8 (H) 4.0 - 9.5 [facility] x[facility] LABORATORY RBC 4.42 (L) 4.58 - [place] 5.54 [facility] x10(6)/[facility] LABORATORY Hemoglobin 13.6 (L) 13.7 [facility] 16.[facility] gm/dL [facility] Hematocrit 39.3 (L) 40.5 - [facility] 48.5 % [facility] MCV 88.9 82.9 - [facility] 93.1 [facility] LABORATORY MCH 30.8 27.5 - [place] 32.1 pg [facility] MCHC 34.6 32.0 - [place] 35.7 gm/dL [facility] Platelets 172 145 - 357 [facility] x10(3)/[facility] LABORATORY RDWSD 42.5 36.0 - [place] 45.0 [facility] LABORATORY RDWCV 12.9 11.4 - [facility] ROBERT 13.8 % [facility] MPV 12.8 7.6 - 12.9 [facility] LABORATORY nRBC % Auto 0.0 % [facility] nRBC Abs Auto 0.000 0.000 - [facility] ROBERT 0.000 [facility] x10(3)/[facility] LABORATORY Specimen Anatomical Collection Method Collection Time Receive d Time (Source) Location / / Volume Laterality Blood specimen 01/12/2020 2:57 PM 020 3:29 (specimen) EDT PM EDT Resulting Agency Comment Spec In Lab Jack Lewis MD HEMATOLOGY ORDERABLES Performing Organization Address City/State/ZIP Code Phon e Number [address] EKG 12 Lead (01/12/2020 2:48 PM EDT) Component Value Ref Range Test Analysis Performed Pathologis t Method Time At Signature Ventricular rate 63 BPM MUSE SYSTEM Atrial Rate 63 BPM MUSE SYSTEM P-R Interval 164 ms MUSE SYSTEM QRS Duration 72 ms MUSE SYSTEM Q-T Interval 418 ms MUSE SYSTEM QTC Calculated 427 ms MUSE SYSTEM (Bezet) Calculated P Terry 8 degrees MUSE SYSTEM Calculated R Terry 41 degrees MUSE SYSTEM Calculated T Terry 46 degrees MUSE SYSTEM INTERPRETATION Poor data quality, interpretation may be adversel y affected MUSE SYSTEM Baseline wander Normal sinus rhythm Nonspecific ST abnormality Abnormal ECG Recommend repeat ECG Confirmed by MD Ruba, Leo Amaral ([id number]) on 01/12/2020 3:16:0 7 PM Specimen Anatomical Collection Method Collection Time Receive d Time (Source) Location / / Volume Laterality 01/12/2020 2:48 PM 0 3:16 EDT PM EDT Jack Lewis MD ECG ORDERABLES Performing Organization Address City/State/ZIP Code Phon e Number MUSE SYSTEM XR Pelvis (Generic) (01/12/2020 11:44 AM EDT) Anatomical Region Laterality Modality Pelvis N/A Digital Radiography Specimen (Source) Anatomical Location Collection Method / Collectio n Time Received Time / Laterality Volume Impressions 01/12/2020 11:59 AM EDT 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 No acute complication. Smoothly lobulated periprosthetic lucenc ies are very similar. Thank you for letting us participate in the care of this patient. For questions regarding this report, please contact e number below. ? Narrative 01/12/2020 11:59 AM EDT EXAMINATION: XR PELVIS (GENERIC) CLINICAL HISTORY: s/p revision L REGGIE (fe moral component), assess for hardware placement and reduction TECHNIQUE: 1 views of the pelvis COMPARISON: 07/20/2019. FINDINGS: New femoral prosthetic component on the left. No acute osseous complication. Alignment is within the expected limits. Otherwise unchanged appearance of the bilateral total hip arthroplasty. Simila r smoothly lobulated periprosthetic lucencies bilaterally. Expected early po stoperative air inclusions in the left-sided soft tissues. Procedure Note Ele Pacheco MD - 2019 EXAMINATION: XR PELVIS (GENERIC) CLINICAL HISTORY: s/p revision L REGGIE (fe moral component), assess for hardware placement and reduction TECHNIQUE: 1 views of the pelvis COMPARISON: 07/20/2019. FINDINGS: New femoral prosthetic component on the left. No acute osseous complication. Alignment is within the expected limits. Otherwise unchanged appearance of the bilateral total hip arthroplasty. Simila r smoothly lobulated periprosthetic lucencies bilaterally. Expected early po stoperative air inclusions in the left-sided soft tissues. IMPRESSION New femoral component of left total hip arthroplasty. No acute complication. Smoothly lobulated periprosthetic lucenc ies are very similar. Thank you for letting us participate in the care of this patient. For questions regarding this report, please contact e number below. Electronically signed by: AMARILYS Valadez [facility] ([phone]), at 01/12/2020 11:59 AM Jack Lewis MD IMG DX ORDERABLES Surgical Pathology Report (01/12/2020 8:46 AM EDT) Component Value Ref Test Analysis Performed At [facility] Method Time Signature Surgical [id number] ? Location: 3T; 0311; [facility] Pathology [place] Report The signing pathologist has (i) examined the relevant preparation(s) for the [facility] specimen(s) and (ii) rendered or confirmed the diagnosis(es) . HOSPITAL LABORATORY . 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 - B-cell rich bone marrow lymphoid aggregate, see discussion Electronically signed by: ??Ailin SANDERSON, Frederick Verified: ??01/20/2020 ?Hematopathologist Performed at: ??-[facility] Dept. of Pathology, [place], [place] DISCUSSION Sections show necrosis, fibr in deposition with underlying hemosiderin and tight perivascular lymphocytic ag gregates. The phwvh-zl-ugyle hip replacement is noted. The findings are most consistent with ALVAL. Pronounced lymphoid aggregate with well formed g erminal centers is noted in a bone marrow. Further immunohistochemica l analysis shows that germinal centers are diffusely positive for CD20; CD3 and CD5 highlight T-ce lls, CD23 some follicular dendritic meshwo rks and Cyclin D1 is negative. Overall morphological and immunohistochemical fea tures are of benign lymphoid aggregate but low grade lymphoprolifaerative proces s cannot be excluded completely. Ancillary studies such a flow cytometry can be pur sued on ??peripheral blood as preliminary assessment and staging for lymphadenopathy maybe recomemnded. ALVAL assessment kindly provided by Dr Kay Gerber. SPECIMEN(S) SUBMITTED A - left hip, excision (1) CLINICAL INFORMATION Failed Left REGGIE SPECIMEN PROCESSING A - Labeled/Fixative: Left hip, fresh. Quantity/Size: Fragments, 7.7 x 5.8 x 2.7 cm, not oriented. Tissue Description: Dark bro wn fragments of friable rubbery tissue. The largest fragment measures 4.0 x 2.4 x 2.3 cm. The cut surfaces are oshea-colon and rubbery. There is one fragment of bon e with adherent brown soft tissue measuring 1.8 x 1.6 x 1.4 cm. The bone cut surface is red-yellow and hard. Sections/Processing: Electrical Maintenance Technician sections in 5 cassettes as follows: ?A1-A4: ??Electrical Maintenance Technician soft tissue sections ?A5: ??Electrical Maintenance Technician bone section ??MJA Specimen (Source) Anatomical Collection Method Collection Time Re ceived Time Location / / Volume Laterality 01/12/2020 8:46 AM EDT Jack Lewis MD PATHOLOGY/CYTOLOGY ORDERABLE S Performing Organization Address City/State/[place] [address] Specimen to Pathology (01/12/2020 8:46 AM EDT) Specimen Anatomical Collection Method Collection Time Receive d Time (Source) Location / / Volume Laterality AP Specimen 01/12/2020 8:46 AM 0 8:46 EDT AM EDT Narrative [facility] - 01/12/2020 8:46 AM EDT Specimen requisition ordered. ??Separate Pathology report to follow Jack Lewis MD PATHOLOGY/CYTOLOGY ORDERABLE S Performing Organization Address City/State/[place] [address] Anaerobic Culture (01/12/2020 8:35 AM EDT) Patholo gist Method Time Signature Anaerobic No anaerobic [facility] Culture organisms [facility] LABORATORY Specimen Anatomical Collection Method Collection Time Receive d Time (Source) Location / / Volume Laterality Hip joint 01/12/2020 8:35 AM 0 9:09 synovial fluid EDT AM EDT (specimen) Comment: LEFT HIP FLUID Resulting Agency Comment Spec In Lab Jack Lewis MD MICROBIOLOGY - GENERAL ORDER BRIG[place] Performing Organization Address City/[facility]/[place] [address] Body Fluid Culture, Aerobic (01/12/2020 8:35 AM EDT) Component Value Ref Test Analysis Performed At Patholo gist Range Method Time Signature Body Fluid No growth PA Culture [facility] LABORATORY Gram Stain Cytocentrifuge Gram Stain performed [facility] No Neutrophils seen. [place] No microorganisms seen. [facility] LABORATORY Specimen Anatomical Collection Method Collection Time Receive d Time (Source) Location / / Volume Laterality Hip joint 01/12/2020 8:35 AM 0 9:08 synovial fluid EDT AM EDT (specimen) Comment: LEFT HIP FLUID Resulting Agency Comment Spec In Lab Jack Lewis MD MICROBIOLOGY - GENERAL ORDER BRIGIDA Performing Organization Address City/State/[place] [address] Cell Count Body Fluid Hip, Left (01/12/2020 8:35 AM EDT) [facility] Signature Spec Type BF Hip, Left [facility] Color BF Brown [facility] Appearance BF Cloudy [facility]OR[facility]ORY WBC BF Ct 266 /[facility] LABORATORY Comment: Body Fluid was manually performed due to quality of specimen. The reported WBC value may include mesothelial cells-lini ng cells. Counts may be inaccurate due to presence of debris Guideline listed below apply to all body fluids. Differentials on BAL specimens are perfo rmed by the Cytology lab section. When Body Fluid WBC count is greater reggie n Zero, a smear is made and scanned. All scan information is correlated with numeric results prior to being released to patients chart. The reference interval(s) and other meth od performance specifications have not been established for this body fluid. Th e test result must be integrated into the clinical context for interpretation. Polymorph % Not Measured % [facility] LABORATORY Comment: Polymorphonuclear cell percent and absol angie values may contain Neutrophils, Eosinophils, and Basophils. Body fluid s mear will be scanned manually for concordance. Mononuc % Not Measured % [facility] LABORATORY Comment: Mononuclear cell percent and absolute va lues may contain Lymphocytes and Monocytes. Body fluid smear will be scan anthony manually for concordance. Polymorph BF ABS Not Measured /[facility] LABORATORY Comment: Polymorphonuclear cell percent and absol angie values may contain Neutrophils, Eosinophils, and Basophils. Body fluid s mear will be scanned manually for concordance. Mononuc ABS Not Measured /[facility] LABORATORY Comment: Mononuclear cell percent and absolute va lues may contain Lymphocytes and Monocytes. Body fluid smear will be scan anthony manually for concordance. 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, subsequent encounter documented in this encounter Admitting Diagnoses Diagnosis 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 documented in this encounter Administered Medications Inactive Administered Medications - up to 3 most recent administrations Medication Order MAR Action Action Date Dose Rate Site acetaminophen (Tylenol) tablet Given 01/12/2020 6:17 AM EDT 1,00 0 mg 1,000 mg 1,000 mg, Oral, ONCE, 1 dose, On Charlette 01/12/20 at 0630, Administer on arrival in Same Day Program, Day of Surgery (Day of Procedure), Routine acetaminophen (Tylenol) tablet 1,000 mg Given 01/13/2020 1:07 PM EDT 1,000 mg 1,000 mg, Oral, EVERY 8 HOURS SCHEDULED, First dose on Charlette 01/12/20 at 1400, Until Discontinued, Maximum dose of acetaminophen is 4000 mg from all sources in 24 hours., Routine Given 01/13/2020 5:06 AM EDT 1,000 mg Given 01/12/2020 9:09 PM EDT 1,000 mg aspirin EC tablet 81 mg Given 01/13/2020 8:42 AM EDT 81 mg 81 mg, Oral, 2 TIMES DAILY, First dose on Charlette 01/12/20 at 1400, Until Discontinued, Routine Given 01/12/2020 8:10 PM EDT 81 mg aspirin EC tablet 81 mg Given 01/12/2020 12:51 PM EDT 81 mg 81 mg, Oral, 2 TIMES DAILY, First dose on Charlette 01/12/20 at 1200, Until Discontinued, Routine ceFAZolin (Ancef) 2g in New Bag (1 of 2) 01/13/2020 3:45 AM EDT 2 g 100 mL/hr dextrose 5% 100 mL (2 x 1g/50mL premix bags) IV 2 g, Intravenous, EVERY 8 HOURS, 3 doses, First dose on Charlette 01/12/20 at 1145, Last dose on Thu01/13/20 at 0345, Administer over 30 Minutes, Adjust to 4 hours from intraoperative dose. * Beta-lactam based antibiotics (eg. Ampicillin, Cefazolin, Aztreonam) should be administered within 4 hours of the preceding intraoperative dose. * Vancomycin, Fluoroquinolones, Clindamycin, Gentamicin, and Metronidazole should be administered within 8 hours of the preceding intraoperative dose. Total dose of ceFAZolin 2 grams, administered using two ceFAZolin 1g/50mL IV bags. Infuse each ceFAZolin 1g/50mL bag over 30 minutes (100 ml/hr) for total infusion time of 60 minutes. On the NOV, document administration of first bag using New Bag (1 of 2) MAR action for dose of 1g. On the NOV, document administration of second bag using Next Bag (2 of 2) MAR action for dose of 1g (resulting in total dose of 2g)., Recovery (Recovery-Hospital Unit), Indication for (Active or Suspected): Prophylaxis New Bag (1 of 2) 01/12/2020 8:16 PM EDT 1 g 100 mL/hr New Bag (1 of 2) 01/12/2020 11:45 AM EDT 2 g 100 mL/hr celecoxib (CeleBREX) capsule 200 mg Given 01/13/2020 8:42 AM EDT 200 mg 200 mg, Oral, 2 TIMES DAILY, First dose on Charlette 01/12/20 at 1200, Until Discontinued, Routine Given 01/12/2020 8:10 PM EDT 200 mg celecoxib (CeleBREX) capsule 400 mg Given 01/12/2020 6:17 AM EDT 400 mg 400 mg, Oral, ONCE, 1 dose, On Charlette 01/12/20 at 0630, Administer on arrival to Same Day Program, Day of Surgery (Day of Procedure), Routine dexamethasone (Decadron) tablet 4 mg Given 01/12/2020 3:48 PM EDT 4 mg 4 mg, Oral, DAILY, 2 doses, First dose on Thu01/12/20 at 1200, Last dose on Thu01/13/20 at 0900, Routine gabapentin (Neurontin) capsule 300 mg Given 01/12/2020 6:17 AM EDT 300 mg 300 mg, Oral, ONCE, 1 dose, On Charlette 01/12/20 at 0630, Administer on arrival in Same Day Program, Day of Surgery (Day of Procedure), Routine gabapentin (Neurontin) capsule 300 mg 300 mg, Oral, NIGHTLY, First dose on Thu01/14/20 at 210 0, Until Discontinued, Routine gabapentin (Neurontin) capsule 600 mg Given 01/12/2020 8:09 PM EDT 600 mg 600 mg, Oral, NIGHTLY, 2 doses, First dose on Charlette 01/12/20 at 2100, Last dose on Thu01/13/20 at 2100, Routine ketorolac (TORADOL) injection 15 mg 15 mg, Intravenous, EVERY 6 HOURS PRN, S tarting on Charlette 01/12/20 at 1141, Until Thu01/13/20 at 1537, Pain, Routine lactated Ringers 500 mL IV bolus New Bag 01/12/2020 3:04 PM EDT Intravenous, ONCE, 1 dose, On Charlette 01/12/20 at 1500 lactated ringers infusion New Bag 01/12/2020 3:48 PM EDT 1,000 mLs 100 mL/hr 1,000 mL, at 100 mL/hr, Intravenous, CONTINUOUS, Starting on Charlette 01/12/20 at 1145, Until Thu01/13/20 at 1537, Recovery (Recovery-Hospital Unit) New Bag 01/12/2020 11:33 AM EDT 1,000 mLs 100 mL/hr oxyCODONE (Roxicodone) tablet 5-15 mg Given 01/13/2020 1:07 PM EDT 10 mg 5-15 mg, Oral, EVERY 4 HOURS PRN, Starting on Charlette 01/12/20 at 1123, Until Thu01/13/20 at 1537, Pain, Give 5 mg for mild pain (1-3), 10 mg for moderate pain (4-6) or 15 mg for severe pain (7-10) May give an additional 5 mg in 30 minutes ONCE if pain not relieved., Routine Given 01/13/2020 5:07 AM EDT 10 mg Given 01/12/2020 8:10 PM EDT 10 mg pantoprazole EC (Protonix) tablet 20 mg Given 01/13/2020 8:42 AM EDT 20 mg 20 mg, Oral, DAILY, First dose on Thu01/12/20 at 1400, Until Discontinued, DO NOT CRUSH OR OPEN, Routine Given 01/12/2020 2:01 PM EDT 20 mg polyethylene glycol (Miralax) packet 17 g Given 01/13/2020 8:42 AM EDT 17 g 17 g, Oral, 2 TIMES DAILY, First dose on Thu01/12/20 at 1400, Until Discontinued, Routine senna-docusate (Pericolace) 8.6-50 mg per Given 2019 8:42 AM EDT 2 tablets tablet 2 tablet 2 tablet, Oral, 2 TIMES DAILY, First dose on Charlette 01/12/20 at 1400, Until Discontinued, Routine Given 01/12/2020 8:09 PM EDT 2 tablets sodium chloride 0.9 % (flush) flush 5 mL Given 01/12/2020 8:12 PM EDT 5 mLs 5 mL, Intravenous, 2 TIMES DAILY, First dose on Charlette 01/12/20 at 1400, Until Discontinued, Recovery (Recovery-Hospital Unit), Routine documented in this encounter Active and Recently Administered Medications Times are shown in EDT. Scheduled Medication Order 01/11/2020 01/12/2020 01/13/2020 acetaminophen (Tylenol) tablet 1,000 mg (COMPLETED) 616 (Given - Provider: Mounika Zapien, CHAZ) 1,000 mg, Oral, ONCE, 1 dose, Charlette 0 at 0630, Administer on arrival in Same Day Program, Day of Surgery (Day of Procedure), Routine acetaminophen (Tylenol) tablet 1,000 mg 1401 (Given - Provider: Joselo Madrid)2109 (Given - Provider: Francisca Ravi RN) 0506 (Given - Provider: Francisca Ravi RN)1307 (Given - Provider: Tanvir Pratt, CHAZ) 1,000 mg, Oral, EVERY 8 HOURS SCHEDULED, First dose on Charlette 01/12/20 at 1400, Until Discontinued, Maximum dose of acetaminophen is 4000 mg from all sources in 24 hours., Routine aspirin EC tablet 81 mg 1400 (Not Given - Provider: Joselo Madrid - Reason: See comment - Comment: Duplicate order)2009 (Given - Provider: Francisca Ravi RN) 0842 (Given - Provider: Tanvir Pratt, CHAZ) 81 mg, Oral, 2 TIMES DAILY, First dose o n Charlette 01/12/20 at 1400, Until Discontinued, Routine aspirin EC tablet 81 mg (CANCELED) 1251 (Given - Provider: Harriett Gallegos RN) 81 mg, Oral, 2 TIMES DAILY, First dose o n Char[place] 01/12/20 at 1200, Until Discontinued, Routine ceFAZolin (Ancef) 2g in dextrose 5% 100 mL (2 x 1g/50mL premix bags) IV (COMPLETED) 2953 (Given - Provider: Ramy Elias MD) 2 g, Intravenous, EVERY 3 HOURS, 1 dose, First dose on Charlette 01/12/20 at 0630, Administer over 30 Minutes, Redose after 3 hours. Total dose of ceFAZolin 2 grams, administered using two ceFAZolin 1g/50mL IV bags. Infuse each ceFAZolin 1g/50mL bag over 30 minutes (100 ml/hr) for total infusion time of 60 minutes. On the NOV, document administration of first bag using New Bag (1 of 2) MAR action for dose of 1g. On the NOV, document administrati on of second bag using Next Bag (2 of 2) MAR action for dose of 1g (resulting in total dose of 2g)., Intra-Operative (Intra-Procedure), Indication for (Active or Suspected): Prophylaxis ceFAZolin (Ancef) 2g in dextrose 5% 100 mL (2 x 1g/50mL premix bags) IV (COMPLETED) 1145 (New Bag (1 of 2) - Pro vider: Harriett Gallegos RN - Comment: 2g/100ml given.)1215 (Next Bag (2 of 2) - Provider: Harriett Gallegos RN - Comment: 2g/100ml given)1245 (Stopped - Provider: Harriett Gallegos RN) 0345 (New Bag (1 of 2) - Provider: Francisca Ravi RN - Comment: last dose of order, bag 09/15)0415 (Next Bag (2 of 2) - Provider: Francisca Ravi RN - Comment: bag 2/2 med not completed)0445 (Stopped - Provider: Francisca Ravi RN) 2 g, Intravenous, EVERY 8 HOURS, 3 doses , First dose on Charlette 01/12/20 at 1145, Last dose on Thu01/13/20 at 0345, Administer over 30 Minutes, Adjust to 4 hours from intraoperative dose. * Beta-lactam based 2015 (Ne w Bag (1 of 2) - Provider: Francisca Ravi RN)2045 (Next Bag (2 of 2) - Provider: Francisca Ravi RN)2115 (Stopped - Provider: Francisca Ravi RN) antibiotics (eg. Ampicillin, Cefazolin, Aztreonam) should be administered within 4 hours of the preceding intraoperative dose. * Vancomycin, Fluoroquinolones, Clindamycin, Gentamicin, and Metronidazole should be administered within 8 hours of the preceding intraoperative dose. Total dose of ceFAZolin 2 grams, administered using two ceFAZolin 1g/50mL IV bags. Infuse each ceFAZolin 1g/50mL bag over 30 m inutes (100 ml/hr) for total infusion ti me of 60 minutes. On the NOV, document administration of first bag using New Bag (1 of 2) MAR action for dose of 1g. On the NOV, document administration of seco nd bag using Next Bag (2 of 2) MAR act ion for dose of 1g (resulting in total dose of 2g)., Recovery (Recovery-Hospital Unit), Indication for (Active or Suspected): Prophylaxis celecoxib (CeleBREX) capsule 200 mg 1199 (Not Given - Provider: Harriett Gallegos RN - Reason: Contraindicated - Comment: Dose given at 0600)2009 (Given - Provider: Francisca Ravi RN) 0842 (Given - Provider: Tanvir Pratt RN) 200 mg, Oral, 2 TIMES DAILY, First dose on Charlette 01/12/20 at 1200, Until Discontinued, Routine celecoxib (CeleBREX) capsule 400 mg (COMPLETED) 616 (Given - Provider: Mounika Zapien, CHAZ) 400 mg, Oral, ONCE, 1 dose, Charlette 01/12/20 at 0630, Administer on arrival to Same Day Program, Day of Surgery (Day of Procedure), Routine dexamethasone (Decadron) tablet 4 mg (CANCELED) 1547 (Given - Provider: Joselo Madrid) 4 mg, Oral, DAILY, 2 doses, First dose o n Charlette 01/12/20 at 1200, Last dose on Thu01/13/20 at 0900, Routine gabapentin (Neurontin) capsule 300 mg (COMPLETED) 616 (Given - Provider: Mounika Zapien, CHAZ) 300 mg, Oral, ONCE, 1 dose, Charlette 01/12/20 at 0630, Administer on arrival in Same Day Program, Day of Surgery (Day of Procedure), Routine gabapentin (Neurontin) capsule 300 mg(Linked Group 1) 300 mg, Oral, NIGHTLY, First dose on Thu01/14/20 at 2100, Until Discontinued, Routine gabapentin (Neurontin) capsule 600 mg(Linked Group 1) 2008 (Given - Provider: Francisca Ravi RN) 600 mg, Oral, NIGHTLY, 2 doses, First do se on Charlette 01/12/20 at 2100, Last dose on Thu01/13/20 at 2100, Routine lactated Ringers 500 mL IV bolus (COMPLETED) 1504 (New Bag - Provider: Joselo Madrid) Intravenous, ONCE, 1 dose, Charlette 01/12/20 at 1500 pantoprazole EC (Protonix) tablet 20 mg 1401 (Given - Provider: Joselo Madrid) 0842 (Given - Provider: Tanvir Pratt, CHAZ) 20 mg, Oral, DAILY, First dose on Charlette at 1400, Until Discontinued, DO NOT CRUSH OR OPEN, Routine polyethylene glycol (Miralax) packet 17 g 1400 (Not Given - Provider: Joselo Madrid - Reason: Patient/family refused)2099 (Not Given - Provider: Francisca Ravi RN - Reason: Patient/family refused) 0842 (Given - Provider: Tanvir rPatt, CHAZ) 17 g, Oral, 2 TIMES DAILY, First dose on Charlette 01/12/20 at 1400, Until Discontinued, Routine senna-docusate (Pericolace) 8.6-50 mg per tablet 2 tablet 1400 (Not Given - Provider: Joselo Madrdi - Reason: Patient/family refused)2008 (Given - Provider: Francisca Ravi RN) 0842 (Given - Provider: Tanvir Pratt, CHAZ) 2 tablet, Oral, 2 TIMES DAILY, First dos e on Charlette 01/12/20 at 1400, Until Discontinued, Routine sodium chloride 0.9 % (flush) flush 5 mL 1402 (Not Given - Provider: Joselo Madrid - Reason: See comment - Comment: IV infusing)2011 (Given - Provider: Francisca Ravi RN) 0842 (Not Given - Provider: Tanvir plasencia RN - Reason: See comment - Comment: infusing) 5 mL, Intravenous, 2 TIMES DAILY, First dose on Charlette 01/12/20 at 1400, Until Discontinued, Recovery (Recovery-Hospital Unit), Routine tranexamic acid (CYKLOKAPRON) 1,463 mg i n sodium chloride 0.9% 114.63 mL (COMPLETED) 0753 (New Bag - Provider: Ramy restrepo MD) 1,463 mg (rounded from 1,462.5 mg = 15 m g/kg/dose ? 97.5 kg), Intravenous, ONCE, 1 dose, Charlette 01/12/20 at 0630, Administer over 30 Minutes, Day of Surgery (Day of Procedure) Continuous Medication Order 01/11/2020 01/12/2020 01/13/2020 lactated ringers infusion (CANCELED) 070 0 (New Bag - Provider: Ramy Elias MD)0930 (Anesthesia Volume Adjustment - Provider: Ramy lEias MD)0954 (Anesthesia Volume Adjustment - Provider: Ramy Elias MD)1010 (Anesthesia Volume Adjustment - Provider: Ramy Elias MD) 1,000 mL, at 100 mL/hr, Intravenous, CON TINUOUS, Starting Charlette 01/12/20 at 0645, Until Charlette 01/12/20 at 1311, Day of Surgery (Day of Procedure) lactated ringers infusion 1133 (New Bag - Provider: Josie Shelley RN)1548 (New Bag - Provider: Joselo Madrid) 1,000 mL, at 100 mL/hr, Intravenous, CON TINUOUS, Starting Charlette 01/12/20 at 1145, Until Thu01/13/20 at 1537, Recovery (Recovery-Hospital Unit) PRN Medication Order 01/11/2020 01/12/2020 01/13/2020 bisacodyL (Dulcolax) suppository 10 mg 10 mg, Rectal, DAILY PRN, Starting Charlette at 1335, Until Thu01/13/20 at 1537, Constipation, Administer if needed per patient's routine [...] Oral, 2 TIMES DAILY PRN, Starting Charlette 01/12/20 at 1335, Until Thu01/13/20 at 1537, Constipation, DO NOT CRUSH OR OPEN Administer if needed per patient's routine or if no bowel movement within 4 8 hours to achieve: (1) One bowel moveme nt every 48 hours, AND (2) without straining. If multiple PRN bowel medications ordered, start with lactulose, then oral bisacodyl, then bisacodyl suppository. Mu ltiple medications may be given concomitantly for constipation., Routine BUpivacaine (PF) (MARCAINE) 0.25 % (2.5 mg/mL) injection (CA NCELED) 1022 (Given - Provider: Jack Lewis MD - Comment: mixed with 50mcg Clonidine and 30mg Toradol) ONCE PRN, Starting Charlette 4 at 1022, Until Thu01/13/20 at 1537, Intra- Operative (Intra-Procedure), Routine cloNIDine injection (CANCELED) 1021 (Giv en - Provider: Jack Lewis MD - Comment: mixed with 50ml of 0.25%Bupivicaine and 30mg Toradol) ONCE PRN, Starting Charlette 4 at 1021, Until Thu01/13/20 at 1537, Intra- Operative (Intra-Procedure), Routine ketorolac (TORADOL) injection 15 mg 15 mg, Intravenous, EVERY 6 HOURS PRN, S tarting Charlette 01/12/20 at 1141, Until Thu01/13/20 at 1537, Pain, Routine ketorolac (TORADOL) injection (CANCELED) 1021 (Given - Provider: Jack Lewis MD - Comment: mixed with 50ml 0.25%Bupivicaine and 50mcg Clonidine) ONCE PRN, Starting Charlette 01/12/20 at 1021, Until Thu01/13/20 at 1537, Intra- Operative (Intra-Procedure), Routine lidocaine (XYLOCAINE) 10 mg/mL (1 %) injection 3 mg 3 mg (0.3 mL), Subcutaneous, ONCE PRN, 1 dose, Starting Charlette 01/12/20 at 1335, Until Thu01/13/20 at 1537, for discomfort with PIV insertion, Recovery (Recovery- Hospital Unit), Routine oxyCODONE (Roxicodone) tablet 5-15 mg 11 (Given - Provider: Josie Shelley RN)1548 (Given - Provider: Joselo Madrid)2009 (Given - Provider: Francisca Ravi CHAZ) 0530 (Given - Provider: Francisca funez RN)1307 (Given - Provider: Tanvir Pratt RN) 5-15 mg, Oral, EVERY 4 HOURS PRN, Starti ng Charlette 01/12/20 at 1123, Until Thu01/13/20 at 1537, Pain, Give 5 mg for mild pain (1-3), 10 mg for moderate pain (4-6) or 15 mg for severe pain (7-10) May give an a dditional 5 mg in 30 minutes ONCE if pain not relieved., Routine sodium chloride 0.9 % (flush) flush 5-20 mL 5-20 mL, Intravenous, EVERY 1 MIN PRN, S tarting Charlette 01/12/20 at 1335, Until Thu01/13/20 at 1537, flush, Flush pertains to all indwelling lines. Flush per protocol found in the job aid using the link provi ded on this medication record., Recovery (Recovery-Hospital Unit ), Routine Linked Groups Order Group 1: gabapentin (Neurontin) capsule 600 mgJump to med 600 mg, Oral, NIGHTLY, 2 doses, First do se on Charlette 01/12/20 at 2100, Last dose on Thu01/13/20 at 2100, Routine Followed by gabapentin (Neurontin) capsule 300 mgJump to med 300 mg, Oral, NIGHTLY, First dose on 01/14/20 at 2100, Until Discontinued, Routine documented in this encounter Care Teams Reducing Salon Attendant Relationship Specialty Start Date End Date Coty Montes MD PCP - General Internal Medicine 01/12/20 07/18/20 [address] [place] [address] documented as of this encounter
--- OUTSIDE RECORDS SUMMARY | 2022-07-01 13:47 | XMS_ITS | Encounter Summary ---
:1955 Author Organization [facility] [place] [address] Care Team Providers Name Role Phone Coty Montes MD Primary Care Provider Reason for Visit Reason Onset Date Comments Prior Authorization 04/11/2020 Patient called about hip surgery performed on 01/12/20 that was denied by Binh schultz due to no authorization being obtained. Let the pa barbarant know my coworker Maggie will look into it and amee l him back Encounter Details Date Type Department Care Team Description 04/11/2020 Telephone General Surgery at Coty Montes Pri or Authorization [facility] (Patient called about [facility] [address] hip surgery [place] [address] 01/12/20 [place] [address] by Raissa due to no authorization being obtained. Let the patient know my coworker Maggie will look into it and call him ba susy ) Social History Tobacco Use Types Packs/Day Years [...] this encounter Miscellaneous Notes Telephone Encounter - Kari Sutherland - 04/11/2020 3:28 PM EDT Patient called about hip surgery performed on 01/12/20 that was denied by Raissa due to no authorization being obtained. Let the patient know my coworker Maggie will look into it and call him back documented in this encounter Plan of Treatment Upcoming Encounters Date Type Specialty Care Team Description 07/08/2022 Office Visit Radiation Oncology Shelley Kimble, SCANNING TECH [facility] RAD[place]ATION [place] [address] (Wo rk) documented as of this encounter Visit Diagnoses Not on filedocumented in this encounter Care Teams Flame Cutting Machine Operator Relationship Specialty Start Date End Date Coty Montes MD PCP - General Internal Medicine 01/12/20 07/18/20 [address] [place] [address] documented as of this encounter
--- OUTSIDE RECORDS SUMMARY | 2022-07-01 13:47 | XMS_ITS | Encounter Summary ---
:1955 Author Organization [facility] [address] Care Team Providers Name Role Phone Grover Herman MD Primary Care Provider Reason for Visit Reason Onset Date Comments Questions 07/20/2020 Encounter Details Date Type Department Care Team Description 07/20/2020 Telephone Orthopaedics at [facility] Marce [place] [address] Social History Tobacco Use Types Packs/Day [...] this encounter Miscellaneous Notes Telephone Encounter - Marce Leal RN - 07/20/2020 12:14 PM EST Patient is currently scheduled to have a REGGIE Revision with Dr. Lewis on 07/26/2020. He has a very recent diagnosis of Prostate Cancer and is needing to proceed with a CT Scan with dye. He is calling to make sure that this will not interfere with his planned surgery. After consulting with Clara Guillen, it is determined that this should not interfere with his surgery and that he should proceed with the scan. Dominick is appreciative of this information and has no further questions or concerns at this time. documented in this encounter Plan of Treatment Upcoming Encounters Date Type Specialty Care Team Description 07/08/2022 Office Visit Radiation Oncology Shelley Kimble, GLASS CUT OFF SUPERVISOR [facility] [place], [place] [address] (Wo rk) documented as of this encounter Visit Diagnoses Not on filedocumented in this encounter Care Teams Specialist Field Engineer Relationship Specialty Start Date End Date Grover Herman MD PCP - General Family Medicine 07/19/20 [address] [place] [address] documented as of this encounter
--- OUTSIDE RECORDS SUMMARY | 2022-07-01 13:47 | XMS_ITS | Encounter Summary ---
:1955 [place] [address] Care Team Providers Name Role Phone Coty [...] Expiration Date Visits Requ ested Visits Authorized [id number] 1 1 Encounter Details Date Type Department Care Team Description 01/12/2020 Anesthesia Event Main Operating Room Akhil Allen MD [facility] [place] [address] [facility] Ramy Elias MD [facility] [place] [address] [place] [address] Anesthesia Record Procedure Summary Procedure Name Responsible Anesthesia Start Anesthesia Stop Time Anesthesiologist Time @TOTAL HIP REVISION Akhil Weeks MD 01/12/20 0747 1042 ARTHROPLASTY, COMPLETE (WRVU 30.28) (Left Hip) Events Date Time Event Comment 01/12/2020 0723 0740 Spinal 0744 AN Verify 0747 Start 0747 An Start Data 0750 An Induction 0752 Anesthesia Ready 0800 Quick Note Blood pressure c uff disconnected, removed from patients ri ght arm and placed on patients elevate d left arm. All blood pressure recordi ngs will be reading 20-30 mmhg lower since his left arm is 20 cm above his heart. 0818 Procedure Start 0857 Break/Relief In I assumed care f or [...] opportunity for questions and acknowledgement of understanding Akhil Weeks MD 0912 Break/Relief Out 0947 Quick Note closing 1038 an stop data 1041 Recovery or ICU Handoff Patient care was transferred to the destination unit staff after review of the patient's medica l history, current anesthetic/surgi amee status and plan, according to the Provider Handoff Checklist. 1042 Stop Name Total Midazolam 2 mg Propofol INF 1,002 mg ceFAZolin (Ancef) 2g in dextrose 5% 100 mL (2 x 1g/50m L premix bags) IV 2 g tranexamic acid (CYKLOKAPRON) 1,463 mg in sodium chlor yong 0.9% 114.63 mL 1,463 mg BUpivacaine 0.5% 3 mL EPINEPHrine 1mg/mL 3 mcg Dexamethasone 8 mg Lidocaine 2% 5mL 80 mg Dexmedetomidine 32 mcg Ondansetron 8 mg ePHEDrine 10 mg lactated ringers infusion 700 mL Agents Name O2 Air N2O Blood No blood administrations on file. Lines, Drains, and Airways Type Details Placement Removal PIV 01/12/20; 06; cephalic 01/12/20 0613 by Lefty , 01/13/20 1253 by vein (lateral side of arm), CHAZ Atknis Steven, RN left; aaqd-oir-yrpayq catheter system; 18 gauge; CHAZ Londono ; distraction, intradermal injection, tolerated well, appears comfortable; 01/13/20; 1253 Incision 01/12/20; 0819; hip; 01/12/20 0819 by Shoaf, 1715 by vertical; 05/12/22 (CHAZ Hinson Dierdre L cleanup utility RA#[id number]); 1715 (LDA cleanup utility RA#[id number]) documented in this encounter Social History Tobacco [...] encounter OR Notes Anesthesia Postprocedure Evaluation - Ramy Elias MD - 01/12/2020 11:02 AM EDT Department of Anesthesiology Post-procedure Note Patient: Dominick Castro Procedure Summary Date: 01/12/20 Room / Location: [facility] OR [address] [place] [address] MAIN OR Anesthesia Start: 746 Anesthesia Stop: 1041 Procedures: @TOTAL HIP REVISION ARTHROPLASTY, COMPLETE (WRVU 30.28) (Left Hip) MODIFIER RECLAIM DEPUY (Left Hip) MODIFIER PINNACLE ACETABULUM DEPUY (Left Hip) MODIFIER CABLES AND PINS IMPLANTS SYNTHES (Left Hip) Diagnosis: (Failed Left REGGIE) Surgeon: Jack Lewis MD Responsible Provider: Akhil Weeks MD Anesthesia Type: spinal ASA Status: 3 All Anesthesia Providers: Anesthesiologist: Akhil Weeks MD Aquatic Facility Manager: Ramy Elias MD Vitals Value Taken Time BP 104/66 01/12/2020 10:45 AM Temp 35.9 ??C (96.6 ??F) 01/12/2020 10:41 AM Pulse 68 01/12/2020 11:00 AM Resp 20 01/12/2020 11:00 AM SpO2 94 % 01/12/2020 11:00 AM Pain Level Vitals shown include unvalidated device data. Patient Location: PACU/[facility] Level of Consciousness: Awake and Alert Pain Management: Satisfactory Analgesia PONV: None Cardiovascular Status: At Baseline Respiratory Status: Supplemental O2 (NC or FM) Postoperative Fluid Status: Intravascular EUvolemia Possible Anesthetic Complications: NONE apparent at time of evaluation Final Primary Anesthesia Type: Spinal (The anesthetic type performed was the same as planned.) Comments: Anesthesia Procedure Notes - Ramy Elias MD - 01/12/2020 8:10 AM EDT Associated Order(s): Neuraxial Block Procedure: Neuraxial Block Primary Anesthetic Type: Spinal The patient was greeted. The sedation plan, its benefits, risks and alternatives were discussed withthe patient. The patient has consented to the procedure. The medical history and chart were reviewed. The timeout was performed. Start time: 01/12/2020 7:35 AM End time: 01/12/2020 8:40 AM Patient Location: Block Room Baseline Information ([id number]-juibcamd entry for database use): Addiction History: No Chronic Pain: Yes On opioids (any route) for 4 weeks or more: No Anxiety: No Depression: No Mood Disorder: No COPD: No CAD: No HTN: No DM: No Patient Prep Position: Sitting Prep: Hand Hygiene, Hat, Mask, Sterile Gloves, Chlorhexidine and Patient Draped Injection technique: single-shot Skin Anesthetic Lidocaine 1% 2 ml Procedure Technique Level of needle insertion: L4-5 Needle approach: midline Needle Type: Sprotte Gauge: 25 Needle length: 3.5 in Number of attempts: 1 Medications: Date/Time: 01/12/2020 7:40 AM BUpivacaine 0.5%, 3 mL EPINEPHrine 1mg/mL, 3 mcg Events/Notes Events: None Resident/FORM LAYER: Ramy Elias MD Second Resident/FORM LAYER: Fellow: Attending Physician: Akhil Weeks MD ~~~~~~~~~~~~~~~~~~~~~~~~~~~~~~~~~~~~~~~~~~~~~~~~~~~~~~~~~~~~ Anesthesia Preprocedure Evaluation - Akhil Weeks MD - 01/11/2020 10:00 PM EDT Pre-Anesthesia Evaluation for: Dominick benoit 64 y.o. male. Procedure(s): @TOTAL HIP REVISION ARTHROPLASTY, COMPLETE (WRVU 30.28) MODIFIER RECLAIM DEPUY MODIFIER PINNACLE ACETABULUM DEPUY MODIFIER CABLES AND PINS IMPLANTS SYNTHES Patient Active Problem List Diagnosis ??? History of total hip arthroplasty ??? Migraines ??? Rotator cuff tear Past Medical History: Diagnosis Date ??? Chronic pain right shoulder and bilat hips ??? Liver disease hepatitis at age 14 ??? Post-operative nausea and vomiting Past Surgical History: Procedure Laterality Date ??? JOINT REPLACEMENT hipss Social History Tobacco Use ??? Smoking status: Never Smoker ??? Smokeless tobacco: Never Used Substance Use Topics ??? Alcohol use: Yes Alcohol/week: 1.0 standard drinks Types: 1 Standard drinks or equivalent per week Comment: Occasionally, 0-1 drinks a week Social History Substance and Sexual Activity Drug Use No No Known Allergies Medications: MAR and/or home medications have been reviewed. Physical Exam: Most Recent Vitals: 01/12/20 0605 BP: 161/84 Pulse: 70 Resp: 18 Temp: 37.3 ??C (99.1 ??F) SpO2: 98% There is no height or weight on file to calculate BMI. Airway Assessment: Mallampati: II TM distance: >3 FB Neck ROM: full Cardiovascular Assessment: Rhythm: regular Pulmonary Assessment: breath sounds clear to auscultation Dental Assessment: Misc Assessment: Patient is wearing No contact(s). IV access: Peripheral line Anesthesia Plan: ASA 3 spinal, Preliminary Note (before seeing patient) 64 y.o., 100.2 kg male with failed left REGGIE presenting for TOTAL HIP REVISION ARTHROPLASTY, COMPLETE PMH significant for: PONV Liver disease Anesthetic hx: PONV Airway hx: no records EKG: none on file ECHO: none on file Lab Results Component Value Date HGB 15.6 01/11/2020 PLATELET 198 01/11/2020 INR 1.0 01/11/2020 NA 139 01/11/2020 K 3.9 01/11/2020 CREATININE 0.70 (L) 01/11/2020 01/11/20 1101 ABORH O Pos Allergies: No Known Allergies NPO Status: Appropriate Anesthetic Plan: Spinal as primary anesthetic GA with ETT as back up Standard ASA monitoring Adequate IV access Ramy Elias MD CA-1 Pager #[phone] I have seen and examined the patient. I have reviewed the medical record and pertinent laboratory information. I have noted the major medical issues to include abcd. I have reviewed risks from minor tomajor as outlined in the anesthesia consent form. I have highlighted risks related to abcd. The patient acknowledged These risks and would like to proceed with the anesthesia plan. Region - Other Informed Consent: Anesthetic plan and risks discussed with patient and spouse. Use of blood products discussed with patient and spouse who. Plan discussed with attending and resident. PAT Clinic Note documented in this encounter Miscellaneous Notes Addendum Note - Akhil Weeks MD - 01/16/2020 1:52 PM EDT Addendum created 01/16/20 135 by Akhil Weeks MD Cosign clinical note documented in this encounter Plan of Treatment Upcoming Encounters Date Type Specialty Care Team Description 07/08/2022 Office Visit Radiation Oncology Shelley Kimble, AGER OPERATOR [facility] RADIATION [place], [place] [address] (Wo rk) documented as of this encounter Procedures Procedure Name Priority Date/Time Associated Diagnosis Comme nts ANE NEURAXIAL APS Routine 01/12/2020 8:10 AM Resu lts for this USE EDT procedure are i n the results section. documented in this encounter Results Neuraxial Block (01/12/2020 8:10 AM EDT) Narrative Akhil Weeks MD - 01/12/2020 8:10 AM EDT Ramy Elias MD ? 01/12/2020 ??8:13 AM Procedure: ?? Neuraxial Block Primary Anesthetic Type: Spinal The patient was greeted. The sedation pl an, its benefits, risks and alternatives were discussed with the pat ient. ??The patient has consented to the procedure. ??The medical history and chart were reviewed. ??The timeout was performed. Start time: 01/12/2020 7:35 AM End time: 01/12/2020 8:40 AM Patient Location: Block Room Baseline Information (PKV-blwn-bvpezroq entry for database use): Addiction History: ??No Chronic Pain: ??Yes On opioids (any route) for 4 weeks or mo re: ??No Anxiety: ??No Depression: ??No Mood Disorder: ??No COPD: ??No CAD: ??No HTN: ??No DM: ??No Patient Prep Position: Sitting Prep: Hand Hygiene, Hat, Mask, Sterile G loves, Chlorhexidine and Patient Draped Injection technique: single-shot Skin Anesthetic Lidocaine 1% ??2 ml Procedure Technique Level of needle insertion: L4-5 Needle approach: midline Needle Type: [place] Gauge: 25 Needle length: 3.5 in Number of attempts: 1 Medications: Date/Time: ??01/12/2020 7:40 AM BUpivacaine 0.5%, 3 mL EPINEPHrine 1mg/mL, 3 mcg Events/Notes Events: ??None Resident/FORM LAYER: ?Stephen Elias MD Second Resident/FORM LAYER: Fellow: ? Attending Physician: ? St erika Weeks MD ~~~~~~~~~~~~~~~~~~~~~~~~~~~~~~~~~~~~~~~~ ~~~~~~~~~~~~~~~~~~~~ Akhil Weeks MD CPHT [facility] documented in this encounter Visit Diagnoses Not on filedocumented in this encounter Administered Medications Inactive Administered Medications - up to 3 most recent administrations Medication Order MAR Action Action Date Dose Rate Site BUpivacaine (PF) (MARCAINE) 0.5 % Given 01/12/2020 7:40 AM EDT 3 mLs (5 mg/mL) injection Starting on Charlette 01/12/20 at 0740, Until Charlette 4 at 0740, Anesthesia Intra-op, Routine ceFAZolin (Ancef) 2g in dextrose 5% 100 mL (2 x Given 01/12/2020 7:53 AM EDT 2 g 1g/50mL premix bags) IV 2 g, Intravenous, EVERY 3 HOURS, 1 [...] (Intra-Procedure), Indication for (Active or Suspected): Prophylaxis dexamethasone (DECADRON) injection Given 01/12/2020 7:52 AM EDT 8 mg PRN, Starting on Charlette 01/12/20 at 0752, Until Charlette 01/12/20 at 1102, Anesthesia Intra-op, Routine dexmedetomidine (PRECEDEX) injection Given 01/12/2020 10:08 AM EDT 8 mcg PRN, Starting on Charlette 01/12/20 at 0926, Until Charlette 01/12/20 at 1102, Anesthesia Intra-op, Routine Given 01/12/2020 10:00 AM EDT 8 mcg Given 01/12/2020 9:41 AM EDT 8 mcg ePHEDrine 5 mg/mL multi-dose injection Given 01/12/2020 9:51 AM EDT 10 mg PRN, Starting on Charlette 01/12/20 at 0951, Until Charlette 01/12/20 at 1102, Anesthesia Intra-op, Routine EPINEPHrine (Adrenalin) injection Given 01/12/2020 7:40 AM EDT 3 mcg Starting on Charlette 01/12/20 at 0740, Until Charlette 01/12/20 at 0740, Anesthesia Intra-op, Routine lactated ringers infusion New Bag 01/12/2020 7:00 AM EDT 1,000 mL, at 100 mL/hr, Intravenous, CONTINUOUS, Starting on Charlette 01/12/20 at 0645, Until Charlette 01/12/20 at 1311, Day of Surgery (Day of Procedure) lidocaine (PF) (XYLOCAINE) 100 mg/5 mL (2 %) Given 0 7:50 AM EDT 80 mg injection PRN, Starting on Charlette 01/12/20 at 0750, Until Charlette 01/12/20 at 1102, Anesthesia Intra-op, Routine midazolam (PF) (VERSED) multi-dose injec tion Given 01/12/2020 7:47 AM EDT 2 mg Intravenous, PRN, Starting on Charlette 01/12/20 at 0747, Until Charlette 01/12/20 at 1102, Anesthesia Intra-op, Routine ondansetron (ZOFRAN) injection Given 01/12/2020 9:48 AM EDT 8 mg PRN, Starting on Charlette 01/12/20 at 0948, Until Charlette 01/12/20 at 1102, Anesthesia Intra-op, Routine propofol (DIPRIVAN) infusion Rate/Dose 01/12/2020 100 mcg/kg/min 60.1 mL/hr Intravenous, CONTINUOUS PRN, Change 10:06 AM EDT Starting on Charlette 01/12/20 at 0750, Until Charlette 01/12/20 at 1102, Anesthesia Intra-op, Routine Rate/Dose Change 01/12/2020 10:02 AM EDT 50 mcg/kg/min 30.1 mL/hr Rate/Dose Change 01/12/2020 9:55 AM EDT 30 mcg/kg/min 18 mL/hr tranexamic acid (CYKLOKAPRON) 1,463 mg in New Bag 2019 7:53 AM EDT 1,463 mg sodium chloride 0.9% 114.63 mL 1,463 mg (rounded from 1,462.5 mg = 15 mg/kg/dose ? 97.5 kg), Intravenous, ONCE, 1 dose, On Charlette 01/12/20 at 0630, Administer over 30 Minutes, Day of Surgery (Day of Procedure) documented in this encounter Care Teams Runner Out Relationship Specialty Start Date End Date Coty Montes MD PCP - General Internal Medicine 01/12/20 07/18/20 [address] [place] [id number] documented as of this encounter
--- OUTSIDE RECORDS SUMMARY | 2022-07-01 13:47 | XMS_ITS | Encounter Summary ---
:1955 Author Organization [facility] [place] [address] Care Team Providers Name Role Phone Coty Montes MD Primary Care Provider Reason for Visit Reason Comments Follow-up L REGGIE REV 01.12.20(Wound chec k) Encounter Details Date Type Department Care Team Description 01/26/2020 Office Visit Orthopaedics at [facility] Jack Lewis, Failure of left [facility] total hip Drive [facility] arthroplasty, [place] [address] [address] subsequent encounter [phone] ORTHOPAEDIC SURG [place], [place] [address] (Wo rk) Social History Tobacco [...] Sign Reading Time Taken Comments Blood Pressure 163/79 01/26/2020 9:23 AM EDT Pulse 68 01/26/2020 9:23 AM EDT Temperature - - Respiratory Rate - - Oxygen Saturation - - Inhaled Oxygen Concentration - - Weight 99.3 kg (219 lb) 01/26/2020 9:23 AM EDT weighed Height 180.3 cm (5' 11) 01/26/2020 9:23 AM EDT Body Mass Index 30.54 01/26/2020 9:23 AM EDT documented in this encounter Progress Notes Becky Post RN - 01/26/2020 9:30 AM EDT Incisonal care and teaching today completed under Dr Lewis's direction. Patient denies any metal or silver allergy. Incision cleansed with wound spray, Aquacel AG strip placed over incisional line and covered with Mepilex border. Plan for patient to change dressing in two days to observe the incision and surrounding skin and then change every 5 days until healed. Education provided on incisional care, dressing of the site, and signs and symptoms to report with verbalized understanding. Patient identifies his spouse as being able to assist in completing prescribed incisional care. Encouraged the patient to contact this office for any questions or concerns. Planned appointment with Dr Lewis on 02/07. documented in this encounter Plan of Treatment Upcoming Encounters Date Type Specialty Care Team Description 07/08/2022 Office Visit Radiation Oncology Shelley Kimble, BOILERMAKER APPRENTICE [facility] RADIATION [place], [place] [address] (Wo rk) documented as of this encounter Visit Diagnoses Diagnosis Failure of left total hip arthroplasty, subsequent encounter documented in this encounter Care Teams Perioperative Nurse Relationship Specialty Start Date End Date Coty Montes MD PCP - General Internal Medicine 01/12/20 07/18/20 [address] [place] [address] documented as of this encounter
--- OUTSIDE RECORDS SUMMARY | 2022-07-01 13:47 | XMS_ITS | Encounter Summary ---
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, subsequent encounter; [place] [address] [address] [address] Failure of left total hip arthroplasty, subsequent encounter [phone] ORTHOPAEDIC SURG [place], [place] [address] (Wo rk) Social History Tobacco [...] Sign Reading Time Taken Comments Blood Pressure 128/78 02/08/2020 2:41 PM EDT Pulse 72 02/08/2020 2:41 PM EDT Temperature - - Respiratory Rate - - Oxygen Saturation - - Inhaled Oxygen Concentration - - Weight 98.9 kg (218 lb) 02/08/2020 2:41 PM EDT Height 180.3 cm (5' 11) 02/08/2020 2:41 PM EDT Body Mass Index 30.4 02/08/2020 2:41 PM EDT documented in this encounter Progress Notes Jack Lewis MD - 02/08/2020 2:30 PM EDT Arthroplasty/Orthopaedic History: 1. 01/12/[address] Lewis HPI: Dominick Castro is a very pleasant 64 y.o. year-old male and is now 4 weeks post left total hip revision The patient has been doing very well. His wound has now fully healed and there is no furtherdrainage. Pain is controlled without any medications.. No fevers, chills, nausea, vomiting, or symptoms of infection. Dominick has been ambulating with no assistive device and has finished with PT. He is not taking narcotic pain medicine. He does notice the extra length in his left leg Anticoagulation status ASA 81mg BID for 30 days discussed stop date 02/11/20 ROS: Denies: fever, chills, night sweats, nausea, or vomiting BP 128/78 Pulse 72 Ht 180.3 cm (5' 11) Wt 98.9 kg (218 lb) BMI 30.40 kg/m?? Physical Exam: Well-appearing male in no acute distress. Alert and Oriented x 3 and answers all questions appropriately. The incision is well healed, with no signs of infection. Hip Exam: Left Leg Length: Longer leg: left Limb Length discrepancy: 0.5cm Motion: Flexion contracture: 0 Total degrees of Flexion: 100 Total degrees of Abduction: 30 Total degrees of Ext Rotation: 20 Total degrees of Internal Rotation: 10 Gait Abnormality: Normal Pulses Palpable: Left PT: Yes Left DP: Yes Motor/Sensory: Left Distal Motor: Normal Distal Sensory: Normal Hip Abductors: 5 Trendelenburg test: negative X-RAYS: Multiple radiographic views were obtained at my request and reviewed with the patient. X-rays show a well-placed prosthesis with no evidence of fracture, subsidence, loosening, or periprosthetic complication. Questionnaire Responses: [facility] Surgical Postop Visit 02/08/2020 PROMIS-10 General Health [...] Choose Same Treatment Again Definitely yes [facility] Response 02/08/2020 HOOS JR Scores 70.43 Spine [facility] Response 02/08/2020 HOOS JR Scores 70.43 ASSESSMENT/PLAN: Mr. Castro is a 64 y.o. year old male status post left total hip revision. Doing well postoperatively. Continue weightbearing as tolerated and working on strength and endurance. 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 He would like to have this revised in the fall. We discussed the appropriate precautions surrounding dental prophylaxis; according to the AAOS Appropriate Use Criteria we do not recommend antibiotic use prior to dental procedures for Dominick. If Dominick has any changes in health status we recommend he contact our office prior to dental procedures for updated recommendations All questions were answered. Signed: Jack Lewis MD 02/09/2020 documented in this encounter Plan of Treatment Upcoming Encounters Date Type Specialty Care Team Description 07/08/2022 Office Visit Radiation Oncology Shelley Kimble APRN [facility] RADIATION ON[facility]WARN[facility] [place] [address] (Wo rk) documented as of this encounter Procedures Procedure Name Priority Date/Time Associated Diagnosis Comme nts TOTAL HIP REVISION Routine 02/08/2020 4:23 PM EDT ARTHROPLASTY, COMPLETE documented in this encounter Results APTT (07/18/2020 1:14 PM EST) athologist Signature PTT 32 25 - 37 sec [facility] Comment: The PTT is NOT appropriate for heparin m onitoring. Use the Anti-Xa level for heparin monitoring (HEP UFH) or LMWH mon itoring (HEP LMW). A PTT less than 37 seconds generally indicates adequate hem ostasis. Specimen Anatomical Collection Method Collection Time Receive d Time (Source) Location / / Volume Laterality Blood specimen 07/18/2020 1:14 PM 020 1:33 (specimen) EST PM EST Resulting Agency Comment Spec In Lab Jack Lewis MD HEMATOLOGY ORDERABLES Performing Organization Address City/[facility] [place] [address] Prothrombin Time (07/18/2020 1:14 PM EST) athologist Signature PT 12.1 9.4 - 12.5 [facility] LAB[facility]ATORY INR 1.1 [facility] Comment: An INR <2.0 indicates adequate procoagul ant activity for hemostasis in most patients without underlying bleeding dis orders, though the INR may not adequately reflect hemostatic capacity i n patients with liver disease and synthetic impairment. The recommended ta rget INR range for therapeutic anticoagulation is 2.0 ? 3.0 for most applications, though lower and higher ranges may be appropriate depending on c linical circumstances. Specimen Anatomical Collection Method Collection Time Receive d Time (Source) Location / / Volume Laterality Blood specimen 07/18/2020 1:14 PM 020 1:33 (specimen) EST PM EST Resulting Agency Comment Spec In Lab Jack Lewis MD HEMATOLOGY ORDERABLES Performing Organization Address City/[facility]/ZIP [facility] [place] [address] Basic Metabolic Panel (non-fasting) (07/18/2020 1:14 PM EST) athologist Signature Glucose Lvl 91 65 - 199 [facility] mg/dL [facility] Comment: Diabetes: >=200 mg/dL plus symp toms BUN 14 10 - 20 mg/dL [facility] Creatinine 1.07 0.80 - 1.50 mg/dL [facility] Sodium 137 135 - 145 mmol/L [facility] Potassium 4.0 3.5 - 5.0 mmol/L [facility] Comment: Please note: ??Patients with WBC >100,00 0 may have falsely elevated Potassium levels. ??For accurate Potassium quantif ication in these patients send serum separator tube (gold top) for subsequent determinations. ??Contact the Clinical Chemistry Laboratory if there are any qu estions. Chloride 102 98 - 107 mmol/L [facility] CO2 24 22 - 31 mmol/L [facility] Anion Gap 11 5 - 15 mmol/L [facility] Calcium 9.3 8.5 - 10.5 mg/dL [facility] Estimated GFR 72 >=60 mL/min/1.73 m?? [facility] Comment: The eGFR was calculated using the CKD-EP I equation. As with all creatinine based estimates of kidney function, eGFR values calculated with the CKD-EPI equation are not accurate in patients wi th acute kidney failure, extremes of body mass or the acutely ill. http://[employer]/[facility] eGFR 84 >=60 mL/min/1.73 m?? [facility] Comment: The eGFR was calculated using the CKD-EP I equation. As with all creatinine based estimates of kidney function, eGFR values calculated with the CKD-EPI equation are not accurate in patients wi th acute kidney failure, extremes of body mass or the acutely ill. 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
--- OUTSIDE RECORDS SUMMARY | 2022-07-01 13:47 | XMS_ITS | Encounter Summary ---
:1955 Author Organization [facility] [place] [address] Care Team Providers Name Role Phone Coty Montes MD Primary Care Provider Encounter Details Date Type Department Care Team Description 02/08/2020 Hospital Encounter X[place] [facility] Jack Lewis, Failure of left [address] [place] [address] Dr SANDERSON total hip [facility] arthropla sty, [id number] [address] pratt [phone] ORTHOPAEDIC encounter SURGERY [place], [place] [address] Social History Tobacco Use Types [...] for Pain for up to 40 doses. aspirin EC 81 mg Take 1 tablet by 60 tablet 0 01/13/2020 Tablet, Delayed Release mouth 2 times daily (E.C.) for 30 days. gabapentin (Neurontin) Take 1 capsule by 30 capsule 0 201902/12/2020 300 mg Capsule mouth nightly for 30 days. documented as of this encounter Plan of Treatment Upcoming Encounters Date Type Specialty Care Team Description 07/08/2022 Office Visit Radiation Oncology Shelley Kimble, ICE SKATING INSTRUCTOR [facility] RADIATION ONCWARNER [place], [place] [address] (Wo rk) documented as of this encounter Procedures Procedure Name Priority Date/Time Associated Diagnosis Comme nts XR PELVIS AND HIP 2 Routine 02/08/2020 1:34 PM Failure of left Results for this VIEWS LEFT EDT total hip procedure are i n arthroplasty, the results subsequent encounter section . documented in this encounter Results XR Pelvis [...] encounter documented in this encounter Care Teams Tobacco Checkout Clerk Relationship Specialty Start Date End Date Coty Montes MD PCP - General Internal Medicine 01/12/20 07/18/20 [address] [place] [address] documented as of this encounter
--- OUTSIDE RECORDS SUMMARY | 2022-07-01 13:47 | XMS_ITS | Encounter Summary ---
:1955 [address] [facility] [place] [address] Care Team Providers Name Role Phone Coty Montes MD Primary Care Provider Encounter Details Date Type Department Care Team Description 04/16/2020 Telephone Orthopaedics at [facility] [place] Jack Lewis MD [place] [phone] ORTHOPAEDIC SURGERY [phone] [place], [place] [address] (Wo rk) Social History [...] Notes Telephone Encounter - Jennifer Lynn - 04/16/2020 11:03 AM EDT I called and left a message for patient to call [phone] directly and schedule surgery with Dr. lewisfor July. documented in this encounter Plan of Treatment Upcoming Encounters Date Type Specialty Care Team Description 07/08/2022 Office Visit Radiation Oncology Shelley Kimble, HEAT TREATING FURNACE TENDER [facility] RADIATION ONCWARNER [place], [place] [address] (Wo rk) documented as of this encounter Visit Diagnoses Not on filedocumented in this encounter Care Teams Professor Of Engineering Relationship Specialty Start Date End Date Coty Montes MD PCP - General Internal Medicine 01/12/20 07/18/20 [address] [place] [address] documented as of this encounter
--- OUTSIDE RECORDS SUMMARY | 2022-07-01 13:47 | XMS_ITS | Encounter Summary ---
:1955 Author Organization [employer] [place] [address] Care Team Providers Name Role Phone Grover [...] Expiration Date Visits Requ ested Visits Authorized [id number] 1 1 Encounter Details Date Type Department Care Team Description 07/26/2020 Surgery Main Operating Room Keshia Lewis MD @TOTAL HIP REVISION [facility] ER DR ARTHROPLASTY, COMPLETE [facility] ORTHOPAEDIC SURGERY (WRVU 30.28) [place], [place] [address] [place] [address] [phone] Social History Tobacco Use Types Packs/Day Years [...] Sign Reading Time Taken Comments Blood Pressure 152/82 07/26/2020 11:18 AM EST Pulse 61 07/26/2020 11:18 AM EST Temperature 36.3 ??C (97.3 ??F) 07/26/2020 11:18 AM EST Respiratory Rate 18 07/26/2020 11:18 AM EST Oxygen Saturation 97% 07/26/2020 11:18 AM EST Inhaled Oxygen Concentration - - Weight 98 kg (216 lb) 07/26/2020 11:18 AM EST Height 180.3 cm (5' 10.98) 07/26/2020 11:18 AM EST Body Mass Index 30.14 07/26/2020 11:18 AM EST documented in this encounter Discharge Summaries Thom Siegel PA - 07/27/2020 11:25 AM EST Discharge Summary Patient Name: Dominick Castro Patient Age: 64 y.o. Language: Cymraes Race: White Ethnicity: Not nor Admit date: 07/26/2020 Discharge date and time: 07/27/2020 Attending Physician: Jack Lewis MD Discharge Physician: Jack Lewis MD Follow-up Recommendations for Providers: See discharge instructions for additional details. Future Appointments Date Time Provider Department Center 08/22/2020 10:00 AM [facility] DX ROOM 3 Xray [facility] Rad 08/22/2020 11:00 AM Jack Lewis MD [facility] ORTH 3C [facility] Inpatient Provider Contact Information: Jack Lewis MD Orthopedics: [phone] After hours and weekends, call [facility] [employer] Faculty, , and have the Orthopedic resident paged. [...] signed by: Darling De La Garza MD, [facility] ([phone]), at 07/26/2020 10:08 PM Xr Femur 2 [...] signed by: Darling De La Garza MD, [facility] ([phone]), at 07/26/2020 10:08 PM Pending Studies and [...] bowel movement. You can also take an oscr-cwy-cbvskyq medication, Miralax if needed to combat constipation. [...] as much as possible. Call your doctor ([phone]) if you develop: 1. Fever greater than 100.5 2. Severe nausea or vomiting 3. Increasing pain that is not controlled by pain medications 4. Increasing redness, swelling, or drainage from incisions 5. Change in sensation FOLLOW-UP APPOINTMENTS: 1. You will have follow-up appointments at [facility] as indicated below in Future Appointment and Orders. 2. You will need to have x-rays prior to your follow-up appointment on 08/22/2020. Please come to Radiology, desk , 1 hour BEFORE that appointment for these x-rays. Future Appointments Date Time Provider Department Center 08/22/2020 10:00 AM [facility] DX ROOM 3 Xray [facility] 08/22/2020 11:00 AM Jack Lewis MD [facility] ORTH [address] [place] [address] If you have questions or concerns: Thursday [...] Provider Department Dept Phone 08/22/2020 10:00 AM [facility] DX ROOM 3 XRay at [facility] Arrive at: [facility] [phone] Please go to [facility] ([place] Location). 08/22/2020 11:00 AM Jack Lewis MD Orthopaedics at [facility] Arrive at: [facility] [phone] Future Orders Complete By Expires Referral to Home Health - at DISCHARGE [YHQ0066 CPT(R)] As directed Process Instructions: Scheduling Instructions: Comments: DOCUMENTATION FOR VNA SERVICES (INCLUDING PATIENTS WITH MEDICARE COVERAGE BEING DISCHARGED HOME WITH VNA SERVICES AND/OR HOSPICE SERVICES) PATIENT'S LOCATION: Dominick Castro Discharge to own home: ??[address] [facility] [address] Setter Helper's Name: self/patient In discussion with the attending physician, it is certified that this patient is under their care and that they, or a nurse practitioner, clinical nurse specialist or physician's advertising assistant manager who is working directly with them, had [...] for home health services. HOME HEALTH AGENCY: [facility] [employer] PHONE: [phone] FAX: [phone] Long Term(SN) eval if indicated on admission visit Activity: [...] patient'sPCP: Grover Herman MD [address] [place] [address] All VNA agencies which cover patient's residence area have been reviewed, either verbally or in writing, and patient/family have chosen the indicated home health agency. Questions: Agency name and contact information: [facility] Patient location post discharge: home What services are requested: Physical Therapy Start date: Responsible MD post discharge contact info: PCP Primary Care Provider: Grover Herman MD [phone] Discharge References/Attachments None documented in this encounter [...] bowel movement. You can also take an hbxn-dsv-livbusj medication, Miralax if needed to combat constipation. [...] as much as possible. Call your doctor ([phone]) if you develop: 1. Fever greater than 100.5 2. Severe nausea or vomiting 3. Increasing pain that is not controlled by pain medications 4. Increasing redness, swelling, or drainage from incisions 5. Change in sensation FOLLOW-UP APPOINTMENTS: 1. You will have follow-up appointments at [facility] as indicated below in Future Appointment and Orders. 2. You will need to have x-rays prior to your follow-up appointment on 08/22/2020. Please come to Radiology, desk , 1 hour BEFORE that appointment for these x-rays. Future Appointments Date Time Provider Department Center 08/22/2020 10:00 AM [facility] DX ROOM 3 Xray [facility] Rad 08/22/2020 11:00 AM Jack Lewis MD [facility] ORTH 3C [facility] If you have questions or concerns: Thursday [...] printed info reviewed with pnt Seen by patient case manager VNA set up Bobbi Hutchinson RN - 07/27/2020 11:02 AM EST This author reviewed a list of Home Health Agencies/DME vendors which serve their preferred geographic area. Affiliations were reviewed with them and they were educated about their right to choose where referrals are placed. Patient requests referral to [facility] PHONE: [phone] FAX: [phone] Expected date of discharge: today Harriett Vizcaino [...] Time Provider Department Center 08/22/2020 10:00 AM [facility] DX ROOM 3 Xray [facility] Rad 08/22/2020 11:00 AM Jack Lewis MD [facility] ORTH 3C [facility] Silvana Block MD - 07/26/2020 9:30 PM [...] tablet ??? sodium chloride 0.9% 100 mL/hr (07/26/201851) OBJECTIVE: Temp: [36.3 ??C (97.3 ??F)-36.7 ??C [...] Time Provider Department Center 08/22/2020 10:00 AM [facility] DX ROOM 3 MH Xray [facility] Rad 08/22/2020 11:00 AM Jack Lewis MD [facility] ORTH 3C [facility] Dominique Cuellar, RN - 07/26/2020 6:41 PM EST Pt to [...] arrival. Post op labs collected and sent. 2995 - Portable XR at bedside. documented in this encounter H&P Notes Jack Lewis MD - 07/26/2020 12:17 PM EST H&P reviewed. No changes noted. Respiratory effort at baseline. Patient appears well perfused. Proceed as planned. documented in this encounter Nursing Notes Lorrie Marlow, RN - 07/26/2020 8:37 PM EST 1952-Pt was sitting up in bed looking for his cell phone in his bag when he stated he was feeling lightheaded and nauseous. His HR went to 39 and BP was 71/39. MD Armenta paged and made aware and was coming to the bedside. MD Escobars at the bedside and gave ephedrine and 1L LR bolus with good effect.Pt states he was feeling better. 0545-MD Armenta made aware of Na 133 and Ca 7.9 this morning documented in this encounter Miscellaneous Notes Op Note - Jack Lewis MD - 07/27/2020 12:43 PM EST [facility] Operative Note Patient Name: Dominick Castro : [id number] MR#: [id number] Case Date: 07/26/2020 - 07/27/2020 Surgeon: Surgeon(s) [...] [address] Jonh Christensen utilizing modular dlghv-ex-xwgos bearings. Approximately 2 years ago imaging was [...] and a sed rate of 6 mm/h. [place] and chromium were both elevated with a chromium of 1.7 ng/mL and a cobalt of 5.6 ng/mL. Given the paqsb-xz-dhewv articulations, his elevated metal ions, and new [...] to the presence of his retained right welgm-ms-fdops hip. We also discussed potential need for [...] and this was marked with a green siletz tribe per [facility] protocol. The patient was brought to the [...] bone and soft tissue. Flexible chisels and mariajose instruments were passed around the femoral stem [...] 1 of the anti-rotation notches on the Columbia cup and the liner was easily removed. [...] attention returned to the femur. ?? Reverse [place] curettes were used to meticulously debride the [...] Osuna taper was appropriately engaged according to hand trucker instructions. The locking bolt was inserted and [...] Implant Name Type Inv. Item Serial No. Painting Technician Lot No. LRB No. Used Action WIRE FIXATION [id number] ANT CERV [facility] [id number] - [id number] IMPLANTS WIRE FIXATION [id number] ANT CERV FUSN SS ([id number]) PRAVEEN BIOMET - PRAVEEN BIO Right 3 Implanted LINER ACET HIP [id number] STND POLY PINNACLE ALTREX ([id number]) (AUTOREQ) - [id number] IMPLANTS LINER ACET HIP [id number] STND POLY PINNACLE ALTREX ([id number]) (AutoReq) Mobileum NABOR [id number] Right 1 Implanted STEM FEMORAL MODULAR HIP [id number] DISTAL STRAIGHT PRSFT TI ([id number]) (AUTOREQ) - [id number] IMPLANTSSTEM FEMORAL MODULAR HIP [id number] DISTAL STRAIGHT PRSFT TI ([id number]) (AutoReq) [employer] NABOR [id number] Right 1 Implanted HEAD FEMORAL HIP 40MM +1.5MM OFFSET 12/14 TPR CERAMIC ([id number]) (AUTOREQ) - [id number] IMPLANTS HEADFEMORAL HIP 40MM +1.5MM OFFSET 12/14 TPR CERAMIC ([id number]) (AutoReq) [employer]OR [id number] Right 1 Implanted STEM FEMORAL CONE BODY HIP [id number] PROX POR OFST TI RECLAIM ([id number]) (AUTOREQ) - [id number] IMPLANTS STEM FEMORAL CONE BODY HIP [id number] PROX POR OFST TI RECLAIM ([id number]) (AutoReq) [employer] NABOR [id number] Right 1 Implanted GRAFT BONE FILLER [id number] FROZEN CHIPS READIGRAFT ([id number]) (AutoReq) - [id number] IMPLANTS GRAFTBONE FILLER [id number] FROZEN CHIPS READIGRAFT ([id number]) (AutoReq) [facility] [id number] Right 1 Implanted Plan of Care - [...] 30.28) performed by Jack Lewis MD at [facility] MAIN OR Social History: Patient lives w/ [...] Baseline ADL/Mobility: Independent 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 Precautions/Special Considerations: TDWB RLE, fall, enhanced hip [...] precautions. Pt donned underpants/pants w/ use of medical laboratory technicians, initial verbal cue for modified technique. Pt [...] instrument andmeasurable assessment of functional outcome. Pager: [phone] Lincoln Philip OT 07/27/2020 Occupational Therapy Rehabilitation Department Plan [...] 30.28) performed by Jack Lewis MD at [facility] MAIN OR Social History: Home setup: Pt [...] outdoors, camping and hunting. 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 Diagnosis & [...] in this evaluation. Time IN / OUT: 1874-7946 Total Evaluation Minutes, Physical Therapy: 39(eval + GTx1) Luli Perez PT DPT 07/27/2020 Pager: [phone] Physical Therapy Inpatient Rehabilitation Department Brief Op Note - Jack Lewis MD - 07/26/2020 5:23 PM EST Brief Operative Note Patient Name: Dominick Castro : [id number] MR#: [id number] Case Date: 07/26/2020 Surgeon: Surgeon(s) and Role: [...] RIGHT hip synovium eD-H Order Id number [id number] Disposition: aroused from sedation, and taken to the recovery room in a stable condition Condition: doing well without problems Seth Crenshwa MD was critical for patient positioning and [...] Visit Radiation Oncology Shelley Kimble APRN [facility] RADIATION [place], [place] [address] (Wo rk) documented as of [...] (ABNORMAL) Differential, Automated (07/27/2020 4:10 AM EST) [facility] Method Time Signature Neutrophils % 79.7 % [facility]OR[facility] Neutr Abs (ANC) 7.96 (H) 1.70 - [facility] 6.10 [facility] x10(3)/[facility] LABORATORY Lymphocytes % 12.8 % [facility] Lymphocytes Abs 1.3 0.9 - 3.2 [facility] x10(3)/[facility] LABORATORY Monocytes % 6.8 % [facility] Monocyte Abs 0.7 0.3 - 0.9 [facility] x10(3)/[facility] LABORATORY Eosinophils % 0.1 % [facility] Eosinophils Abs 0.0 0.0 - 0.4 [facility] x10(3)/[facility] LABORATORY Basophils % 0.2 % [facility] Basophils Abs 0.0 0.0 - 0.1 [facility] x10(3)/[facility] LABORATORY Immature Gran % 0.40 % [facility] Comment: Immature granulocytes(IG's)percentage an d absolute count will include metamyelocytes, myelocytes, and promyelo cytes. Blood smears from CBCs yielding IG's will be scanned manually for concor dance. If this scan disagrees with the automated IG or if promyelocytes are not ed, a manual differential will be performed. Sarai Gran Abs 0.04 0.00 - 0.04 x10(3)/[facility] MAR Y [facility] LABORATORY Specimen Anatomical Collection Method Collection Time Receive d Time (Source) Location / / Volume Laterality Blood specimen 07/27/2020 4:10 AM 020 4:26 (specimen) EST AM EST Resulting Agency Comment Spec In Lab Silvana Block MD HEMATOLOGY ORDERABLES Performing Organization Address City/State/ZIP Code Phon e Number [place] [id number] (ABNORMAL) Hemogram (07/27/2020 4:10 AM EST) Analysis Performed At Patho logist Time Signature WBC 10.0 (H) 4.0 - 9.5 [facility] x10(3)/[facility] LABORATORY RBC 3.60 (L) 4.58 - [facility] 5.54 [facility] x10(6)/[facility] LABORATORY Hemoglobin 11.0 (L) 13.7 - [facility] 16.[facility] gm/dL [facility] LABOR[facility] Hematocrit 32.9 (L) 40.5 - [facility] 48.5 % [facility] MCV 91.4 82.9 - [facility] 93.1 fL [facility] MCH 30.6 27.5 - [facility] 32.1 pg [facility] MCHC 33.4 32.0 - [facility] 35.7 gm/dL [facility] Platelets 164 145 - 357 [facility] x10(3)/[facility] LABORATORY RDWSD 47.0 (H) 36.0 - [facility] 45.0 [facility] LABORATORY RDWCV 14.0 (H) 11.4 - [facility] 13.8 % [facility] MPV 12.2 7.6 - 12.9 [facility] LABORATORY nRBC % Auto 0.0 % [facility] nRBC Abs Auto 0.000 0.000 - [facility] 0.000 [facility] x10(3)/[facility] LABORATORY Specimen Anatomical Collection Method Collection Time Receive d Time (Source) Location / / Volume Laterality Blood specimen 07/27/2020 4:10 AM 020 4:26 (specimen) EST AM EST Resulting Agency Comment Spec In Lab Silvana Block MD HEMATOLOGY ORDERABLES Performing Organization Address City/State/[place] [address] (ABNORMAL) Basic Metabolic Panel (non-fasting) (07/27/2020 4:10 AM EST) P athologist Signature Glucose Lvl 167 65 - 199 [facility] mg/dL [facility] Comment: Diabetes: >=200 mg/dL plus symp toms BUN 14 10 - 20 mg/dL [facility] LAB[facility] Creatinine 1.00 0.80 - 1.50 mg/dL [facility] Sodium 133 (L) 135 - 145 mmol/L [facility] Potassium 3.9 3.5 - 5.0 mmol/L [facility] Comment: Please note: ??Patients with WBC >100,00 0 may have falsely elevated Potassium levels. ??For accurate Potassium quantif ication in these patients send serum separator tube (gold top) for subsequent determinations. ??Contact the Clinical Chemistry Laboratory if there are any qu estions. Chloride 102 98 - 107 mmol/L [facility] CO2 24 22 - 31 mmol/L [facility] Anion Gap 7 5 - 15 mmol/L [facility] Calcium 7.9 (L) 8.5 - 10.5 mg/dL [facility] Estimated GFR 79 >=60 mL/min/1.73 m?? [facility] Comment: The eGFR was calculated using the CKD-EP I equation. As with all creatinine based estimates of kidney function, eGFR values calculated with the CKD-EPI equation are not accurate in patients wi th acute kidney failure, extremes of body mass or the acutely ill. http://[facility] eGFR 91 >=60 mL/min/1.73 m?? [facility] Comment: The eGFR was calculated using the CKD-EP I equation. As with all creatinine based estimates of kidney function, eGFR values calculated with the CKD-EPI equation are not accurate in patients wi th acute kidney failure, extremes of body mass or the acutely ill. http://[facility]nkf Specimen Anatomical Collection Method Collection Time Receive d Time (Source) Location / / Volume Laterality Blood specimen 07/27/2020 4:10 AM 020 4:26 (specimen) EST AM EST Resulting Agency Comment Spec In Lab Jack Lewis MD CHEMISTRY ORDERABLES Performing Organization Address City/State/ZIP Code Phon e Number [place] [phone] XR Femur 2 views [...] signed by: Darling De La Garza MD, [facility] ([phone]), at 07/26/2020 10:08 PM Narrative 07/26/2020 10:08 [...] signed by: Darling De La Garza MD, [facility] ([phone]), at 07/26/2020 10:08 PM Walter Crenshaw MD [...] signed by: Darling De La Garza MD, [facility] ([phone]), at 07/26/2020 10:08 PM Narrative 07/26/2020 10:08 [...] this report, please contact e number below. Walter Crenshaw MD IMG DX ORDERABLES (ABNORMAL) Hemogram (07/26/2020 6:27 PM EST) Analysis Performed At Patho logist Time Signature WBC 10.4 (H) 4.0 - 9.[address] [facility] x10(3)/[facility] LABORATORY RBC 4.31 (L) 4.58 - [facility] 5.54 [facility] x10(6)/[facility] LABORATORY Hemoglobin 13.0 (L) 13.7 - [facility] 16.5 gm/dL [facility] LABORATORY Hematocrit 38.9 (L) 40.5 - [facility] 48.5 % [facility] LABOR[facility]ORY MCV 90.3 82.9 - [facility] 93.1 [facility] LABORATORY MCH 30.2 27.5 - [facility] 32.1 pg [facility] MCHC 33.4 32.0 - [facility] 35.7 gm/dL [facility] Platelets 178 145 - 357 [facility] x[facility](3[facility] LABORATORY RDWSD 46.5 (H) 36.0 - [facility] 45.0 [facility] LABORATORY RDWCV 13.9 (H) 11.4 - [facility] 13.8 % [facility] LABOR[facility] MPV 11.8 7.6 - 12.9 [facility] LABORATORY nRBC % Auto 0.0 % [facility] nRBC Abs Auto 0.000 0.000 - [facility] 0.000 [facility] x10(3)/[facility] LABORATORY Specimen Anatomical Collection Method Collection Time Receive d Time (Source) Location / / Volume Laterality Blood specimen 07/26/2020 6:27 PM 020 6:32 (specimen) EST PM EST Resulting Agency Comment Spec In Lab Walter Crenshaw MD HEMATOLOGY ORDERABLES Performing Organization Address City/State/[place] [address] [facility] [address] Surgical Pathology Report (07/26/2020 2:46 PM EST) Component Value Ref Test Analysis Performed At [facility] gist Range Method Time Signature Surgical [id number] ? Location: PACU; [facility]; [facility] Pathology [place] Report The signing pathologist has (i) examined the relevant preparation(s) for the [facility] specimen(s) and (ii) rendered or confirmed the [...] Jose Nguyen Verified: ??07/30/2020 ?Pathologist Performed at: ??-[facility] Dept. of Pathology, [place], [place] ADDITIONAL STUDIES Special stains Block: A3 [...] yellow orange to red-brown fibrofatty tissue. Sections/Processing: Technology Solutions Architect sections in 3 cassettes labeled A1-A3. ??shb Specimen (Source) Anatomical Collection Method Collection Time Re ceived Time Location / / Volume Laterality 07/26/2020 2:46 PM EST Jack Lewis MD PATHOLOGY/CYTOLOGY ORDERABLE S Performing Organization Address City/[facility] [address]/[place] [address] Specimen to Pathology (07/26/2020 2:46 PM EST) Specimen Anatomical Collection Method Collection Time Receive d Time (Source) Location / / Volume Laterality AP Specimen 07/26/2020 2:46 PM 0 2:46 EST PM EST Narrative [facility] - 07/26/2020 2:46 PM EST Specimen requisition ordered. ??Separate Pathology report to follow Jack Lewis MD PATHOLOGY/CYTOLOGY ORDERABLE S Performing Organization Address City/[facility] [address]/[place] [address] Anaerobic Culture (07/26/2020 2:35 PM EST) [facility] Method Time Signature Anaerobic No anaerobic [facility] Culture organisms [facility] LABORATORY Specimen Anatomical Collection Method Collection Time Receive d Time (Source) Location / / Volume Laterality Joint fluid RIGHT HIP REGION 07/26/2020 2:35 PM 07/26 2:55 specimen STRUCTURE / EST PM EST (specimen) Unknown Resulting Agency Comment Spec In Lab Jack Lewis MD MICROBIOLOGY - GENERAL ORDER [place]IG[place] Performing Organization Address City/[facility] [address]/[place] [address] Joint Culture (07/26/2020 2:35 PM EST) Component Value Ref Test Analysis Performed At [facility] [employer] Range Method Time Signature Joint Culture No growth at 14 PA days. [facility] LABORATORY Gram Stain Cytocentrifuge Gram Stain performed PA Neutrophils seen [place] No microorganisms seen. [facility] LABORATORY Specimen Anatomical Collection Method Collection Time Receive d Time (Source) Location / / Volume Laterality Joint fluid RIGHT HIP REGION 07/26/2020 2:35 PM 07/26 2:55 specimen STRUCTURE / EST PM EST (specimen) Unknown Resulting Agency Comment Spec In Lab Jack Lewis MD MICROBIOLOGY - GENERAL ORDER BRIGIDA Performing Organization Address City/State/[place] [address] Cell Count Body Fluid Hip, Right (07/26/2020 2:35 PM EST) [facility] Method Time Signature Spec Type BF Hip, Right [facility] Color BF Red [facility] Appearance BF Hazy [facility] WBC BF Ct 1,928 /[facility] LABORATORY Comment: Counts may be inaccurate due [...] context for interpretation. Polymorph % 60 % [facility] Comment: Polymorphonuclear cell percent and absol angie values may contain Neutrophils, Eosinophils, and Basophils. Body fluid s mear will be scanned manually for concordance. Mononuc % 40 % [facility] Comment: Mononuclear cell percent and absolute va lues may contain Lymphocytes and Monocytes. Body fluid smear will be scan anthony manually for concordance. Polymorph BF ABS 1,157 /[facility] LABORATORY Comment: Polymorphonuclear cell percent and absol angie values may contain Neutrophils, Eosinophils, and Basophils. Body fluid s mear will be scanned manually for concordance. Mononuc ABS 771 /[facility] LABORATORY Comment: Mononuclear cell percent and absolute [...] AND STOOLS ORDER BRIGIDA Performing Organization Address City/[facility] [address]/[place] [address] SCAN DOC: IMPLANTABLE DEVICES (07/26/2020 12:00 AM EST) Narrative 07/26/2020 12:00 AM EST This result has an attachment that is no t available. Ordered by an unspecified provider. Scanning Provider MEDIA MGR SCAN EXT ORDR/RSLT documented in this encounter Visit Diagnoses Not on filedocumented in this encounter Admitting Diagnoses Diagnosis History [...] Given 07/26/2020 9:13 PM EST 81 mg BUpivacaine (PF) (MARCAINE) Given 07/26/2020 3:16 PM EST 50 mLs 19- Surgical Site 0.25 % (2.5 mg/mL) injection ONCE PRN, Starting on Charlette 07/26/20 at 1516, Until Thu07/27/20 at 1443, Intra-Operative (Intra-Procedure), Routine celecoxib (CeleBREX) capsule 200 mg Given 07/27/2020 8:11 AM EST 200 mg 200 mg, Oral, 2 TIMES DAILY, First dose on Charlette 07/26/20 at 2100, Until Discontinued, Routine Given 07/26/2020 9:13 PM EST 200 mg cloNIDine injection Given 07/26/2020 3:19 PM EST 50 mcg 19- S urgical Site ONCE PRN, Starting on Charlette 07/26/20 at 1519, Until Thu07/27/20 at 1443, Intra-Operative (Intra-Procedure), Routine gabapentin (Neurontin) capsule 300 mg 300 mg, Oral, NIGHTLY, First dose on 07/28/20 at 2 100, Until Discontinued, Routine gabapentin (Neurontin) capsule 600 mg Given 07/26/2020 9:14 PM EST 600 mg 600 mg, Oral, NIGHTLY, 2 doses, First dose on Charlette 07/26/20 at 2100, Last dose on Thu07/27/20 at 2100, Routine ketorolac (Toradol) (30 mg/mL) Given 07/26/2020 3:19 PM EST 30 m g 19- Surgical Site injection ONCE PRN, Starting on Charlette 07/26/20 at 1519, Until Thu07/27/20 at 1443, Intra-Operative (Intra-Procedure), Routine multivitamin with minerals (THERA-M) tablet Given 07/15 [...] Oral, EVERY 4 HOURS PRN, Starting on Chralette 07/26/20 at 1844, Until Thu07/27/20 at 1443, [...] Charlette 07/26/20 at 2100, Until Discontinued, Routine senna-docusate (Pericolace) 8.6-50 mg per Given 2019 8:12 AM EST 2 tablets tablet 2 tablet 2 tablet, Oral, 2 TIMES DAILY, First dose on Charlette 07/26/20 at 2100, Until Discontinued, Routine sodium chloride 0.9% Rate/Dose Verify 07/27/2020 6:33 AM 100 mL/hr 1 00 mL/hr infusion EST 100 mL/hr, Intravenous, CONTINUOUS, Starting on Charlette 07/26/20 at 1915, Until Thu07/27/20 at 1443, Recovery (Recovery-Hospital Unit) Rate/Dose Verify 07/27/2020 4:00 AM EST 100 mL/hr 100 mL/hr Rate/Dose Verify 07/27/2020 2:56 AM EST 100 mL/hr 100 mL/hr documented in this encounter Active and Recently Administered Medications Times are shown in EST. Scheduled Medication Order 07/25/2020 07/26/2020 07/27/2020 acetaminophen (Tylenol) tablet 1,000 mg 2234 (Given - Provider: Virginia Lopez RN) 07 (Given - Provider: Lorrie Marlow RN) 1,000 [...] 2112 (Given - Provider: Lorrie Marlow RN) 08 (Given - Provider: Harriett Gallegos, CHAZ) 81 [...] on 07/28/20 at 2100, Until Discontinued, Routine gabapentin (Neurontin) capsule 600 mg(Linked Group 1) 2113 (Given - Provider: Lorrie Marlow RN) 600 mg, Oral, NIGHTLY, 2 doses, First do se on Thu07/26/20 at 2100, Last dose on Thu07/27/20 at 2100, Routine lactated Ringers 1,000 mL IV bolus (COMPLETED) 1999 (New Bag - Provider: Lorrie Marlow RN) Intravenous, ONCE, 1 dose, Thu07/26/20 at 2044 multivitamin with minerals (THERA-M) tablet 1 tablet 1999 (Not Given - Provider: Lorrie Marlow RN - Reason: Patient/family refused) 811 (Given - Provider: Harriett Gallegos, CHAZ) 1 tablet, Oral, DAILY, First dose on Thu07/26/20 at 1999, Until Discontinued, Routine pantoprazole EC (Protonix) tablet 20 mg 2114 (Given - Provider: Lorrie Marlow RN) 811 (Given - Provider: Harriett Gallegos RN) 20 mg, Oral, DAILY, First dose on Thu at 1999, Until Discontinued, DO NOT CRUSH OR OPEN, Routine polyethylene glycoL (Miralax) packet 17 g 2099 (Not Given - Provider: Lorrie Marlow RN - Reason: Patient/family refused) 813 (Given - Provider: Harriett Gallegos RN) 17 g, Oral, 2 TIMES DAILY, First dose on Thu07/26/20 at 2099, Until Discontinued, Routine senna-docusate (Pericolace) 8.6-50 mg per tablet 2 tablet 2099 (Not Given - Provider: Lorrie Marlow RN - Reason: Patient/family refused) 811 (Given - Provider: Harriett Gallegos, CHAZ) 2 tablet, Oral, 2 TIMES DAILY, First dos e on Thu07/26/20 at 2099, Until Discontinued, Routine sodium chloride 0.9 % (flush) flush 5 mL 2099 (Not Given - Provider: Lorrie Marlow [...] Routine ketorolac (Toradol) (30 mg/mL) injection (CANCELED) 151 (Given - Provider: Jack Lewis MD [...] mg 19 17 (Given - Provider: Lorrie Marlow RN)1944 (Given - Provider: Lorrie Marlow, CHAZ)2235 (Given - Provider: Virginia Lopez, CHAZ)2353 (Given - Provider: Lorrie Marlow RN) 0407 (Given - Provider: Lorrie Marlow RN)0815 (Given - Provider: Harriett Gallegos, RN)1237 (Given - Provider: Harriett Gallegos, RN) 5-15 mg, Oral, EVERY 4 HOURS [...] St arting Charlette 07/26/20 at 1920, Until 07/27/20 at 1443, Nausea
May repeat times one in 30 minutes if ineffective. If multiple antiemetics ar e ordered, use ondansetron first
Re covery (Recovery-Hospital Unit) documented in this encounter Care Teams Caustic Mixer Relationship Specialty Start Date End Date Grover Herman MD PCP - General Family Medicine 07/19/20 [address] [place] [address] documented as of this encounter
--- OUTSIDE RECORDS SUMMARY | 2022-07-01 13:47 | XMS_ITS | Encounter Summary ---
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 Incision is drainage scant serous fluid, not soaking dressing. Redness is not spreading and is itchy. Pain has been well controlled and only slightly increased after stopping his narcotics over the weekend. No fevers or chills. Keflex 500mg QID rx sent to his pharmacy for 10 day course. Patient instructed to send updated woundand dressing photos on Thursday AM for assessment. documented in this encounter Plan of Treatment Upcoming Encounters Date Type Specialty Care Team Description 07/08/2022 Office Visit Radiation Oncology Lamin Shelley Terry, GROOVER RUNNER [facility] RADIATION ONCWARNER [place], [place] [address] (Wo rk) documented as of this encounter Procedures Procedure Name Priority Date/Time Associated Diagnosis Comme nts EKG 12-LEAD Routine 07/18/2020 12:46 PM Results for this EST procedure are i n the results section . documented in this encounter Results EKG 12 Lead (07/18/2020 12:46 PM EST) Component Value Ref Range Test Analysis Performed Pathologis t Method Time At Signature Ventricular rate 55 BPM MUSE SYSTEM Atrial Rate 55 BPM MUSE SYSTEM P-R Interval 150 ms MUSE SYSTEM QRS Duration 90 ms MUSE SYSTEM Q-T Interval 442 ms MUSE SYSTEM QTC Calculated 422 ms MUSE SYSTEM (Bezet) Calculated P [place] 38 degrees MUSE SYSTEM Calculated R [place] 54 degrees MUSE SYSTEM Calculated T [place] 46 degrees MUSE SYSTEM INTERPRETATION Sinus bradycardia MUSE SY STEM Otherwise normal ECG When compared with ECG of 12-JAN-2020 17:00, Vent. rate has decreased BY ??29 BPM Nonspecific T wave abnormality no longer evident in Lateral leads Confirmed by Annia Cadena ([id number]) on 07/19/2020 9:01:18 A M Specimen Anatomical Collection Method Collection Time Receive d Time (Source) Location / / Volume Laterality 07/18/2020 12:46 07/19/2020 9:01 PM EST AM EST Unknown ECG ORDERABLES Performing Organization Address City/State/ZIP Code Phon e Number MUSE SYSTEM documented in this encounter Visit Diagnoses Diagnosis Failure of left total hip arthroplasty, subsequent encounter documented in this encounter Care Teams Arson And Bomb Investigator Relationship Specialty Start Date End Date Coty Montes MD PCP - General Internal Medicine 01/12/20 07/18/20 [address] [place] [address] documented as of this encounter
--- OUTSIDE RECORDS SUMMARY | 2022-07-01 13:47 | XMS_ITS | Encounter Summary ---
:1955 Author Organization [place] [address] Care Team Providers Name Role Phone Coty Montes MD Primary Care Provider Encounter Details Date Type Department Care Team Description 04/12/2020 Telephone Orthopaedics at [facility] [place] [place] [address] Social History Tobacco Use Types Packs/Day [...] this encounter Miscellaneous Notes Telephone Encounter - Marlene Mason - 04/12/2020 12:33 PM EDT I stated myself or someone else would call her back. I advised my supervisor matrix of the call and she said she would handle it further. documented in this encounter Plan of Treatment Upcoming Encounters Date Type Specialty Care Team Description 07/08/2022 Office Visit Radiation Oncology Shelley Kimble, CITY PLANNING ENGINEER [facility] RADIATION ONCWARNER [place], [place] [address] (Wo rk) documented as of this encounter Visit Diagnoses Not on filedocumented in this encounter Care Teams Project Hire Relationship Specialty Start Date End Date Coty Montes MD PCP - General Internal Medicine 01/12/20 07/18/[address] [place] [id number] documented as of this encounter
--- OUTSIDE RECORDS SUMMARY | 2022-07-01 13:47 | XMS_ITS | Encounter Summary ---
:1955 Author Organization [facility] [place] [address] Care Team Providers Name Role Phone Coty Montes MD Primary Care Provider Encounter Details Date Type Department Care Team Description 07/18/2020 Clinical [place] [address] Social History Tobacco Use Types Packs/Day [...] documented as of this encounter Progress Notes Dominick Kent RN - 07/18/2020 12:30 PM EST PAT questionnaire reviewed with patient while in Pre Admission testing. Pre- operative instruction booklet reviewed. Patient verbalizes a good understanding of all information reviewed. PLAN: Testing: Labs and ekg Special medication instructions: None Procedure date: 07/26/20 Dr. Debbie Hernandez 1 bottle given to patient with instructions to drink 3 hours prior to surgery. documented in this encounter Plan of Treatment Upcoming Encounters Date Type Specialty Care Team Description 07/08/2022 Office Visit Radiation Oncology Shelley Kimble, MATERIAL PLANNING ANALYST [facility] RADI[facility] ONCWARNER [place], [place] [address] (Wo rk) documented as of this encounter Visit Diagnoses Not on filedocumented in this encounter Care Teams Cooker Chip Relationship Specialty Start Date End Date Coty Montes MD PCP - General Internal Medicine 01/12/20 07/18/20 [address] [place] [address] documented as of this encounter
--- OUTSIDE RECORDS SUMMARY | 2022-07-01 13:47 | XMS_ITS | Encounter Summary ---
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 HEMOGRAM Routine 07/18/2020 1:14 PM Hip pain, rig ht Results for this EST History of total procedure a re in hip arthroplasty, the result s right section. Mechanical loosening of internal right hip prosthetic joint, subsequent encounter DIFFERENTIAL, AUTOMATED Routine 07/18/2020 1:14 PM Hip p ain, right Results for this EST History of total procedure a re in hip arthroplasty, the result s right section. Mechanical loosening of internal right hip prosthetic joint, subsequent encounter HC VENIPUNCTURE Routine 07/18/2020 1:14 PM Hip pain, rig ht EST History of total hip arthroplasty, right Mechanical loosening of internal right hip prosthetic joint, subsequent encounter ABO/RH TYPING Routine 07/18/2020 1:14 PM Hip pain, rig ht Results for this EST History of total procedure a re in hip arthroplasty, the result s right section. Mechanical loosening of internal right hip prosthetic joint, subsequent encounter HC PARTIAL Routine 07/18/2020 1:14 PM Hip pain, rig ht Results for this THROMBOPLASTIN TIME EST History of total proc edure are in hip arthroplasty, the result s right section. Mechanical loosening of internal right hip prosthetic joint, subsequent encounter HC PROTHROMBIN TIME Routine 07/18/2020 1:14 PM Hip pain, right Results for this EST History of total procedure a re in hip arthroplasty, the result s right section. Mechanical loosening of internal right hip prosthetic joint, subsequent encounter HC CBC,PLT & AUTO DIFF Routine 07/18/2020 1:14 PM Hip pa in, right EST History of total hip arthroplasty, right Mechanical loosening of internal right hip prosthetic joint, subsequent encounter ANTIBODY SCREEN Routine 07/18/2020 1:14 PM Hip pain, rig ht Results for this EST History of total procedure a re in hip arthroplasty, the result s right section. Mechanical loosening of internal right hip prosthetic joint, subsequent encounter BASIC METABOLIC PANEL Routine 07/18/2020 1:14 PM Hip jack n, right Results for this (NON-FASTING) EST History of total procedure are in hip arthroplasty, the result s right section. Mechanical loosening of internal right hip prosthetic joint, subsequent encounter documented in this encounter Results ABORH Recheck Status (07/18/2020 1:14 PM EST) [facility] Method Time Signature ABORH Type Completed [facility] LABORATORY Specimen Anatomical Collection Method Collection Time Receive d Time (Source) Location / / Volume Laterality Blood specimen 07/18/2020 1:14 PM 020 1:24 (specimen) EST PM EST Resulting Agency Comment Spec In Lab Jack Lewis MD BLOOD BANK ORDERABLES Performing Organization Address City/State/ZIP Code Phon e Number [facility] [place] [address] Differential, Automated (07/18/2020 1:14 PM EST) P athologist Signature Neutrophils % 48.6 % [facility] Neutr Abs (ANC) 3.18 1.70 - [facility] 6.10 [facility] x10(3)/[facility] LABORATORY Lymphocytes % 41.7 % [facility] Lymphocytes Abs 2.7 0.9 - 3.2 [facility] x10(3)/[facility] LABORATORY Monocytes % 8.0 % [facility] Monocyte Abs 0.5 0.3 - 0.9 [facility] x10(3)/[facility] LABORATORY Eosinophils % 0.9 % [facility] Eosinophils Abs 0.1 0.0 - 0.4 [facility] x10(3)/[facility] LABORATORY Basophils % 0.6 % [facility] Basophils Abs 0.0 0.0 - 0.1 [facility] x10(3)/[facility] LABORATORY Immature Gran % 0.20 % [facility] Comment: Immature granulocytes(IG's)percentage an d absolute count will include metamyelocytes, myelocytes, and promyelo cytes. Blood smears from CBCs yielding IG's will be scanned manually for concor dance. If this scan disagrees with the automated IG or if promyelocytes are not ed, a manual differential will be performed. Sarai Gran Abs 0.01 0.00 - 0.04 x10(3)/[facility] LABORATORY Specimen Anatomical Collection Method Collection Time Receive d Time (Source) Location / / Volume Laterality Blood specimen 07/18/2020 1:14 PM 020 1:33 (specimen) EST PM EST Resulting Agency Comment Spec In Lab Jack Lewis MD HEMATOLOGY ORDERABLES Performing Organization Address City/State/[place] [address] (ABNORMAL) Hemogram (07/18/2020 1:14 PM EST) Analysis Performed At Path logist Time Signature WBC 6.5 4.0 - 9.5 [facility] x[facility](3[facility] LABORATORY RBC 4.93 4.58 - [facility] 5.54 [facility] x10(6)/[facility] LABORATORY Hemoglobin 14.9 13.7 - [facility] 16.5 gm/dL [facility] LABORATORY Hematocrit 44.9 40.5 - [facility] 48.5 % [facility] LABORATORY MCV 91.1 82.9 - [facility] 93.1 [facility] LABORATORY MCH 30.2 27.5 - [facility] ROBERT 32.1 pg [facility] LABORATORY MCHC 33.2 32.0 - [facility] ROBERT 35.7 gm/dL [facility] LABORATORY Platelets 199 145 - 357 [facility] x10(3)/[facility] LABORATORY RDWSD 49.0 (H) 36.0 - [facility] 45.0 [facility] LABORATORY RDWCV 14.6 (H) 11.4 - [facility] ROBERT 13.8 % [facility] LABORATORY MPV 12.2 7.6 - 12.9 [facility] ROBERT [facility] LABORATORY nRBC % Auto 0.0 % [facility] nRBC Abs Auto 0.000 0.000 - [facility] ROBERT 0.000 [facility] x10(3)/[facility] LABORATORY Specimen Anatomical Collection Method Collection Time Receive d Time (Source) Location / / Volume Laterality Blood specimen 07/18/2020 1:14 PM 020 1:33 (specimen) EST PM EST Resulting Agency Comment Spec In Lab Jack Lewis MD HEMATOLOGY ORDERABLES Performing Organization Address City/State/[place] [address] Antibody screen (07/18/2020 1:14 PM EST) [facility] Method Time Signature Ab Screen Negative [facility] LABORATORY Expires at 07/29/2020 [facility] 2359 on: [facility] LABORATORY Specimen Anatomical Collection Method Collection Time Receive d Time (Source) Location / / Volume Laterality Blood specimen 07/18/2020 1:14 PM 020 1:24 (specimen) EST PM EST Resulting Agency Comment Spec In Lab Jack Lewis MD BLOOD BANK ORDERABLES Performing Organization Address City/[facility]/ZIP Code Phon e Number [address] ABO/Rh Typing (07/18/2020 1:14 PM EST) P athologist Signature ABORh Type O Pos [facility] Specimen Anatomical Collection Method Collection Time Receive d Time (Source) Location / / Volume Laterality Blood specimen 07/18/2020 1:14 PM 020 1:24 (specimen) EST PM EST Resulting Agency Comment Spec In Lab Jack Lewis MD BLOOD BANK ORDERABLES Performing Organization Address City/[facility] [place] [address] APTT (07/18/2020 1:14 PM EST) P athologist Signature PTT 32 25 - 37 sec [facility] Comment: The PTT is NOT appropriate [...] Lewis MD HEMATOLOGY ORDERABLES Performing Organization Address City/[facility]/ZIP [facility] [place] [address] Prothrombin Time (07/18/2020 1:14 PM EST) P athologist Signature PT 12.1 9.4 - 12.5 [facility] LABORATORY INR 1.1 [facility] Comment: An INR <2.0 indicates adequate [...] Organization Address City/State/[place] [address] Basic Metabolic Panel (non-fasting) (07/18/2020 1:14 PM EST) P athologist Signature Glucose Lvl 91 65 - 199 [facility] mg/dL [facility] LABORATORY Comment: Diabetes: >=200 mg/dL plus symp toms BUN 14 10 - 20 mg/dL [facility] LABORATORY Creatinine 1.07 0.80 - 1.50 mg/dL [facility] LABORATORY Sodium 137 135 - 145 mmol/L [facility] LABORATORY Potassium 4.0 3.5 - 5.0 mmol/L [facility] LABORATORY Comment: Please note: ??Patients with WBC >100,00 0 may have falsely elevated Potassium levels. ??For accurate Potassium quantif ication in these patients send serum separator tube (gold top) for subsequent determinations. ??Contact the Clinical Chemistry Laboratory if there are any qu estions. Chloride 102 98 - 107 mmol/L [facility] CO2 24 22 - 31 mmol/L [facility] Anion Gap 11 5 - 15 mmol/L [facility] LABORATORY Calcium 9.3 8.5 - 10.5 mg/dL [facility] LABORATORY Estimated GFR 72 >=60 mL/min/1.73 m?? [facility] Comment: The eGFR was calculated using the CKD-EP I equation. As with all creatinine based estimates of kidney function, eGFR values calculated with the CKD-EPI equation are not accurate in patients wi th acute kidney failure, extremes of body mass or the acutely ill. [email or web address] [place]kf eGFR 84 >=60 mL/min/1.73 m?? [facility] Comment: The eGFR was calculated using the CKD-EP I equation. As with all creatinine based estimates of kidney function, eGFR values calculated with the CKD-EPI equation are not accurate in patients wi th acute kidney failure, extremes of body mass or the acutely ill. [email or web address] Specimen Anatomical Collection Method Collection Time Receive d Time (Source) Location / / Volume Laterality Blood specimen 07/18/2020 1:14 PM 020 1:33 (specimen) EST PM EST Resulting Agency Comment Spec In Lab Jack Lewis MD CHEMISTRY ORDERABLES Performing Organization Address City/State/[place] [address] documented in this encounter Visit Diagnoses Diagnosis Hip pain, right Pain in joint, pelvic region and thigh History of total hip arthroplasty, right Mechanical loosening of internal right h ip prosthetic joint, subsequent encounter documented in this encounter Care Teams Security System Analyst Relationship Specialty Start Date End Date Coty Montes MD PCP - General Internal Medicine 01/12/20 07/18/20 [address] [place] [address] documented as of this encounter
--- OUTSIDE RECORDS SUMMARY | 2022-07-01 13:47 | XMS_ITS | Encounter Summary ---
:1955 [place] [address] Care Team Providers Name Role Phone Grover [...] Expiration Date Visits Requ ested Visits Authorized [id number] 1 1 Encounter Details Date Type Department Care Team Description 07/23/2020 Public Health Public Health [facility] [place] COVID-[place] [address] Social History Tobacco Use Types Packs/Day [...] 07/08/2022 Office Visit Radiation Oncology Shelley Kimble, IUSS ACOUSTIC ANALYST [facility] [address] [place], [place] [address] (Wo rk) documented as of this encounter Procedures Procedure Name Priority Date/Time Associated Diagnosis Comme nts COVID-19 PCR STAT 07/23/2020 11:15 AM COVID-19 ruled out Re sults for this EST procedure are i n the results section . documented in this encounter Results COVID-19 PCR (07/23/2020 11:15 AM EST) [facility] Method Time Signature SARS-CoV-2 Not Detected Not Detected PA RNA [facility] Comment: This result should be interpreted in com bination with the clinical observations, patient history and epidem iological information in making a final diagnosis. For testing of asymptomatic i ndividuals, assay performance characteristics and clinical utility hav e not been evaluated. Testing for SARS-CoV-2 (Severe acute respiratory syn drome coronavirus 2, formerly known as 2019 novel coronavirus or 2019-nCoV) to aid in the diagnosis of COVID-19 is performed using the [employer] RealTime SARS -CoV-2 Assay as authorized by the FDA Emergency Use Authorization (EUA). This EUA assay is intended for In-vitro Diagnostic (IVD) use with respiratory sp ecimens such as nasopharyngeal swabs collected from individuals during the ac te-moak phase of infection. This assay is performed based on the instructions for use provided by [employer] and additional guidance provided by CDC and FDA. Testing is performed in the [facility] within the Department of Pathology and Laboratory Medicine at [facility], certified under the Clinical Laboratory Improvement Amendments of 1988 (CLIA), 42 U.S.C. 263a, to perform high complexi ty tests. Assay performance has been verified according to clinical laborator y regulatory requirements for use with specimens collected from individuals reanna pected of COVID-19. Test results are provided above. A result of ? Not Detected? indicates that the viral RNA target is not present above the limit of detect ion, but does not preclude SARS-CoV-2 infection. False negative results may oc cur if a specimen is improperly collected, transported or handled; if am plification inhibitors are present; or if inadequate numbers of viral particles are present in the specimen. When a diagnostic test is negative, the possibi lity of a false negative result should be considered in the context of a patien t? s recent exposures and the presence of clinical signs and symptoms consisten t with COVID-19. A result of ? Detected? indicates that RNA from SARS-CoV-2 was d etected and the patient is infected. As required or requested by public health [facility], positive specimens may be sent for additional testing. Positive an d negative predictive values for this test are highly dependent on disease pre valence. A result of ? Invalid? indicates that neither the viral RNA tar gets nor the internal control target was detected. An invalid result suggests the presence of inhibitors. Recollection and re-testing is recommend ed in the case of an invalid result. CDC COVID-19 criteria for testing on hum an specimens and clinical management guidance information are available at [facility] Coronavirus Disease 2019 (COVID-19) webpage under ? Information for Healthcare Professionals? (https://www.cdc.gov/coronavirus/2019-nc ov/hcp/index.html) Additional information about this and ot her EUA tests can be found in provider and patient fact sheets at the following FDA website: https://www.fda.gov/medical-devices/zzoygfsfumw-bzfhmqi-1815-vtxwn-93-nrsslvhwc- ddo-zznqguyfmngkef-epphueq-devices/lvkwj-cjthdjxvzcf-zdab SARS-Cov-2 RNA Source [employer] [facility] Specimen (Source) Anatomical Collection Method Collection Time Re ceived Time Location / / Volume Laterality Nasopharyngeal swab 07/23/2020 11:15 11/0 05/2020 (specimen) AM EST 11:15 AM EST Comment: Symptoms->Asymptomatic Resulting Agency Comment Spec In Lab Jack Lewis MD MICROBIOLOGY - GENERAL ORDER [place] Performing Organization Address City/State/[place] [address] documented in this encounter Visit Diagnoses Diagnosis COVID-19 ruled out documented in this encounter Care Teams Cylinder Batcher Relationship Specialty Start Date End Date Grover Herman MD PCP - General Family Medicine 07/19/20 [address] [place] [address] documented as of this encounter
--- OUTSIDE RECORDS SUMMARY | 2022-07-01 13:47 | XMS_ITS | Encounter Summary ---
:1955 Author Organization [facility] [place] [address] Care Team Providers Name Role Phone Coty Montes MD Primary Care Provider Reason for Visit Auth/Cert Specialty Diagnoses / Procedures Referred By Contact Refer red To Contact Diagnoses Broken internal left hip prosthesis, sequela Failed Left REGGIE Procedures PRO REVISE TOTAL HIP REPLACEMENT @TOTAL HIP REVISION ARTHROPLASTY, COMPLETE (WRVU 30.) MODIFIER RECLAIM DEPUY Referral ID Status Reason Start Date Expiration Date Visits Requ ested Visits Authorized [id number] 1 1 Encounter Details Date Type Department Care Team Description 01/12/2020 Surgery Main Operating Room Keshia [place] MD @TOTAL HIP REVISION [facility] ER DR ARTHROPLASTY, COMPLETE [facility] ORTHOPAEDIC SURGERY (WRVU 30.) [place], [place] [address] [place] [address] [phone] Social History Tobacco Use Types Packs/Day Years [...] Sign Reading Time Taken Comments Blood Pressure 116/67 01/12/2020 11:15 AM EDT Pulse 68 01/12/2020 11:15 AM EDT Temperature 36.4 ??C (97.5 ??F) 01/12/2020 11:00 AM EDT Respiratory Rate 13 01/12/2020 11:15 AM EDT Oxygen Saturation 97% 01/12/2020 11:15 AM EDT Inhaled Oxygen Concentration - - Weight - - Height - - Body Mass Index - - documented in this encounter Discharge Summaries Thom Siegel PA - 01/13/2020 12:07 PM EDT Discharge Summary Patient Name: Dominick Castro Patient Age: 64 y.o. Language: Bulgarian Race: White Ethnicity: Not nor Admit date: 01/12/2020 Discharge date and time: 01/13/2020 Attending Physician: Jack [place] MD Discharge Physician: Jack [place] MD Follow-up Recommendations for Providers: See discharge instructions for additional details. Future Appointments Date Time Provider Department Center 02/08/2020 1:30 PM [facility] DX ROOM 6 Xray [facility] Rad 02/08/2020 2:30 PM Jack [place] MD [facility] ORTH 3C [facility] Inpatient Provider Contact Information: Jack [place] MD Orthopedics: [phone] After hours and weekends, call [facility] Shearing Machine Operator, , and have the Orthopedic resident paged. [...] [address] Jonh Christensen utilizing modular fnlzs-ev-saiiz bearings. Approximately 2 years ago imaging was [...] and a sed rate of 6 mm/h. Ethan and chromium were both elevated with a chromium of 1.7 ng/mL and a cobalt of 5.6 ng/mL. Given the xohic-vk-wpnch articulations, his elevated metal ions, and new pain I recommended revision of his left total hiparthroplasty. We discussed risks of revision arthroplasty including infection, limb length discrepancy, hip instability, fracture, and continued metal ion generation due to the presence of his retainedright cqxis-su-tzgpc hip. We also discussed potential need for [...] bowel movement. You can also take an gqgc-vdy-wechsyk medication, Miralax if needed to combat constipation. [...] as much as possible. Call your doctor ([phone]) if you develop: 1. Fever greater than 100.5 2. Severe nausea or vomiting 3. Increasing pain that is not controlled by pain medications 4. Increasing redness, swelling, or drainage from incisions 5. Change in sensation FOLLOW-UP APPOINTMENTS: 1. You will have follow-up appointments at [facility] as indicated below in Future Appointment and Orders. 2. You will need to have x-rays prior to your follow-up appointment on 02/08/20. Please come to Radiology, desk 3T, 1 hour BEFORE that appointment for these x-rays. Future Appointments Date Time Provider Department Center 02/08/2020 1:30 PM [facility] DX ROOM 6 Xray [facility] Rad 02/08/2020 2:30 PM Jack [place] MD [facility] ORTH 3C [facility] If you have questions or concerns: Thursday [...] Provider Department Dept Phone 02/08/2020 1:30 PM [facility] DX ROOM 6 XRay at [facility] Arrive at: Director Of Enrollment Area 3T [phone] Please go to Director Of Enrollment Area 3T ([place] Location). 02/08/2020 2:30 PM Jack [place] MD Orthopaedics at [facility] Arrive at: Director Of Enrollment Area 3C [phone] Future Orders Complete By Expires XR Pelvis and Hip 2 Views Left [[id number] Custom] 02/11/2020 08/12/2020 Process Instructions: Scheduling Instructions: Questions: Where will study be performed?: [facility] Radiology Portable exam?: Reason for exam and clinical history: s/p revision L REGGIE 01/12/20, assess hardware location Clinical information / houser questions: Stat read required?: Date of injury if applicable: Requested Time: Referral to Home Health - at DISCHARGE [ZXL8594 CPT(R)] As directed Process Instructions: Scheduling Instructions: Comments: DOCUMENTATION FOR VNA SERVICES (INCLUDING PATIENTS WITH MEDICARE COVERAGE BEING DISCHARGED HOME WITH VNA SERVICES AND/OR HOSPICE SERVICES) PATIENT'S LOCATION: Dominick Juno Castro Discharge to own home: [address] [place] [phone] Addiction Social Worker's Name: self/patient In discussion with the attending physician, it is certified that this patient is under their care and that they, or a nurse practitioner, clinical nurse specialist or physician's digital marketing assistant who is working directly with them, [...] for home health services. HOME HEALTH AGENCY: [facility]. PHONE: [phone] FAX: [phone] Care Home(SN) eval if indicated on admission visit Activity: [...] this patient'sPCP: Coty Montes MD [address] [place] [address] All VNA agencies which cover patient's residence area have been reviewed, either verbally or in writing, and patient/family have chosen the indicated home health agency. Questions: [facility] Patient location post discharge: home What services are requested: Physical Therapy Start date: 01/14/2020 Responsible MD post discharge contact info: PCP Primary Care Provider: Coty Montes MD [phone] Discharge References/Attachments None documented in this encounter [...] bowel movement. You can also take an ihvk-iql-ymmxtid medication, Miralax if needed to combat constipation. [...] as much as possible. Call your doctor ([phone]) if you develop: 1. Fever greater than 100.5 2. Severe nausea or vomiting 3. Increasing pain that is not controlled by pain medications 4. Increasing redness, swelling, or drainage from incisions 5. Change in sensation FOLLOW-UP APPOINTMENTS: 1. You will have follow-up appointments at [facility] as indicated below in Future Appointment and Orders. 2. You will need to have x-rays prior to your follow-up appointment on 02/08/20. Please come to Radiology, desk 3T, 1 hour BEFORE that appointment for these x-rays. Future Appointments Date Time Provider Department Center 02/08/2020 1:30 PM [facility] DX ROOM 6 Xray [facility] Rad 02/08/2020 2:30 PM Jack [place] MD [facility] ORTH 3C [facility] If you have questions or concerns: Thursday [...] as of this encounter Progress Notes Tanvir Pratt RN - 01/13/2020 1:35 PM EDT Patient [...] Time Provider Department Center 02/08/2020 1:30 PM [facility] DX ROOM 6 MH Xray [facility] Rad 02/08/2020 2:30 PM Jack [place] MD [facility] ORTH 3C [facility] Pramod Collins MD - 01/12/2020 4:27 PM [...] Time Provider Department Center 02/08/2020 1:30 PM [facility] DX ROOM 6 MH Xray [facility] Rad 02/08/2020 2:30 PM Jack [place] MD [facility] ORTH 3C [facility] Joselo Madrid - 01/12/2020 1:37 PM EDT [...] walks without devices and 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 alsohelps run this company. 2 children at home, [...] At rest 3/10 L hip With activity 4/10 same Vital Signs: At Rest With Activity [...] in this evaluation. 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 Precautions/Special Considerations: WBAT LLE, fall, enhanced hip [...] educated on use of sock aid and informatics educator, ptdonned socks, underpants, and pants w/ use [...] Total Evaluation Minutes, Occupational Therapy: 48(eval + sc) 2017 OT Evaluation Code Rationale: [...] instrument andmeasurable assessment of functional outcome. Pager: [phone] Lincoln Philip OT 01/13/2020 Occupational Therapy Rehabilitation [...] staff Living Situation: will be staying at: [address] [place] [address] [address] [facility] [phone] Supports: spouse Ele, son and daughter ( will be staying with patient at home) DME:tbd, used crutches after previous surgery Home Health: VNA for PT This author reviewed a list of Home Health Agencies/DME vendors which serve their preferred geographic area. Affiliations were reviewed with them and they were educated about their right to choose where referrals are placed. Patient requests referral to [facility] PHONE: [phone] FAX: [phone] Expected date of discharge: 01/13/2020 Assessment: Patient with no apparent or limited RNCM/SW needs at this time. No housing, transportation, insurance, resources concerns identified at this time. Supports in place to achieve a safe post-hospital transition. No identified barriers to accessing necessary care and/or follow-up after discharge. Plan: Patient to d/c to home via private car ( spouse to drive when medically ready. levelman/Account Auditor will continue to follow patient???s progress and remain available if situation changes for coordination of care, psychosocial support and/or discharge planning. Bobbi Carlos RN Pager [phone] Plan of Care - Francisca Ravi RN [...] [place] MD - 01/12/2020 11:08 AM EDT [facility] Operative Note Patient Name: Dominick Castro : [id number] MR#: [id number] Case Date: 01/12/2020 Surgeon: Surgeon(s) and Role: [...] [address] Jonh Christensen utilizing modular uzmou-ie-viucf bearings. Approximately 2 years ago imaging was [...] and a sed rate of 6 mm/h. Ethan and chromium were both elevated with a chromium of 1.7 ng/mL and a cobalt of 5.6 ng/mL. Given the xmvfy-tp-uolri articulations, his elevated metal ions, and new pain I recommended revision of his left total hip arthroplasty. We discussed risks of revision arthroplasty including infection, limb length discrepancy, hip instability, fracture, and continued metal ion generation due to the presence of his retained right qsyso-zh-ouhnf hip. We also discussed potential need for [...] and this was marked with a green rincon per [facility] protocol. The patient was broughtto the operating [...] 1 of the derotation notches on the Vickery cup and the liner was easily removed. [...] Osuna taper was appropriately engaged according to professor of environmental studies instructions. The locking bolt was inserted and [...] Implant Name Type Inv. Item Serial No. Hydrostatic Tubing Tester Lot No. LRB No. Used Action LINER,PINN,ACET,NEUT,40X58 ([id number]) (AutoReq) - [id number] IMPLANTS LINER,PINN,ACET,NEUT,40X58 ([id number]) (AutoReq) Semmx NABOR [id number] Left 1 Implanted STEM,REC,DIST,TPR,[id number] ([id number]) (AUTOREQ) - [id number] IMPLANTS STEM,REC,DIST,TPR,[id number] ([id number]) (AutoReq) Semmx NABOR [id number] Left 1 Implanted CONE,BODY,RECLAIM,PRX,24X85 ([id number]) (AUTOREQ) - [id number] IMPLANTS CONE,BODY,RECLAIM,PRX,24X85 ([id number]) (AutoReq) [employer] KARLO NABOR [id number] Left 1 Implanted HEAD,DLTA,CRMC,+1.5,12/14,40MM ([id number]) (AUTOREQ) - [id number] IMPLANTS HEAD,DLTA,CRMC,+1.5,12/14,40MM ([id number]) (AutoReq) [employer] KARLO NABOR [id number] Left 1 Implanted BONE,CRUSHED,CANCELLOUS,30CC ([id number]) (AutoReq) - [id number] IMPLANTS BONE,CRUSHED,CANCELLOUS,30CC ([id number]) (AutoReq) [facility] [id number] Left 1 Implanted Attestation: Case Date: 01/12/2020 I was present and I participated during the entire procedure (does not need to include opening and closing). Jack [place] MD 01/12/2020 Brief Op Note - Andrea Pena MD - 01/12/2020 10:59 AM EDT Brief Operative Note Patient Name: Dominick Castro : [id number] MR#: [id number] Case Date: 01/12/2020 Surgeon: Surgeon(s) and Role: [...] head and acetabular liner. DeP[employer] Reclaim [id number] stem, ceramic 40mm +1.5 12/14 taper femoral head, and [id number] poly liner placed. Metaphysis packed with cancellous [...] Operative Note Patient Name: Dominick Castro : [id number] MR#: [id number] Case Date: 01/12/2020 Surgeon: Surgeon(s) and Role: [...] Visit Radiation Oncology Shelley Kimble, [facility] RADIATION [place] [address] (Wo rk) documented as of [...] (ABNORMAL) Differential, Automated (01/13/2020 5:25 AM EDT) [facility] Method Time Signature Neutrophils % 77.6 % [facility] LABORATORY Neutr Abs (ANC) 9.66 (H) 1.70 - [facility] 6.10 [facility] x10(3)/[facility] LABORATORY Lymphocytes % 11.7 % [facility] Lymphocytes Abs 1.5 0.9 - 3.2 [facility] x10(3)/[facility] LABORATORY Monocytes % 10.2 % [facility] Monocyte Abs 1.3 (H) 0.3 - 0.9 [facility] x10(3)/[facility] LABORATORY Eosinophils % 0.0 % [facility] Eosinophils Abs 0.0 0.0 - 0.4 [facility] x10(3)/[facility] LABORATORY Basophils % 0.2 % [facility] Basophils Abs 0.0 0.0 - 0.1 [facility] x10(3)/[facility] LABORATORY Immature Gran % 0.30 % [facility] Comment: Immature granulocytes(IG's)percentage an d absolute count will include metamyelocytes, myelocytes, and promyelo cytes. Blood smears from CBCs yielding IG's will be scanned manually for concor dance. If this scan disagrees with the automated IG or if promyelocytes are not ed, a manual differential will be performed. Sarai Gran Abs 0.04 0.00 - 0.04 x10(3)/[facility] LABORATORY Specimen Anatomical Collection Method Collection Time Receive d Time (Source) Location / / Volume Laterality Blood specimen 01/13/2020 5:25 AM 020 6:09 (specimen) EDT AM EDT Resulting Agency Comment Spec In Lab Andrea Pena MD HEMATOLOGY ORDERABLES Performing Organization Address City/State/[place] [address] (ABNORMAL) Hemogram (01/13/2020 5:25 AM EDT) Analysis Performed At Patho logist Time Signature WBC 12.4 (H) 4.0 - 9.5 [facility] x10(3)/[facility] LABORATORY RBC 3.98 (L) 4.58 - [facility] 5.54 [facility] x10(6)/[facility] LABORATORY Hemoglobin 12.0 (L) 13.7 - [facility] 16.5 gm/dL [facility] LABORATORY Hematocrit 37.0 (L) 40.5 - [facility] ROBERT 48.5 % [facility] LABORATORY MCV 93.0 82.9 - [facility] ROBERT 93.1 [facility] LABORATORY MCH 30.2 27.5 - [facility] ROBERT 32.1 pg [facility] LABORATORY MCHC 32.4 32.0 - [facility] 35.7 gm/dL [facility] LABORATORY Platelets 175 145 - 357 [facility] x10(3)/[facility] LABORATORY RDWSD 44.7 36.0 - [facility] ROBERT 45.0 [facility] LABORATORY RDWCV 13.2 11.4 - [facility] ROBERT 13.8 % [facility] LABORATORY MPV 12.7 7.6 - 12.9 [facility] LABORATORY nRBC % Auto 0.0 % [facility] LABORATORY nRBC Abs Auto 0.000 0.000 - [facility] 0.000 [facility] x10(3)/[facility] LABORATORY Specimen Anatomical Collection Method Collection Time Receive d Time (Source) Location / / Volume Laterality Blood specimen 01/13/2020 5:25 AM 020 6:09 (specimen) EDT AM EDT Resulting Agency Comment Spec In Lab Andrea Pena MD HEMATOLOGY ORDERABLES Performing Organization Address City/State/[place] [address] (ABNORMAL) Basic Metabolic Panel (non-fasting) (01/13/2020 5:25 AM EDT) P athologist Signature Glucose Lvl 136 65 - 199 [facility] mg/dL [facility] LABOR[facility]ORY Comment: Diabetes: >=200 mg/dL plus symp toms BUN 14 10 - 20 mg/dL [facility] LABORATORY Creatinine 0.87 0.80 - 1.50 mg/dL [facility] LABORATORY Sodium 140 135 - 145 mmol/L [facility] LABORATORY Potassium 4.2 3.5 - 5.0 mmol/L [facility] LABORATORY Comment: Please note: ??Patients with WBC >100,00 0 may have falsely elevated Potassium levels. ??For accurate Potassium quantif ication in these patients send serum separator tube (gold top) for subsequent determinations. ??Contact the Clinical Chemistry Laboratory if there are any qu estions. Chloride 105 98 - 107 mmol/L [facility]OR[facility]ORY CO2 23 22 - 31 mmol/L [facility]OR[facility] Anion Gap 12 5 - 15 mmol/L [facility] LABORATORY Calcium 8.4 (L) 8.5 - 10.5 mg/dL [facility] LABORATORY Estimated GFR 91 >=60 mL/min/1.73 m?? [facility] LABOR[facility]ORY Comment: The eGFR was calculated using the CKD-EP I equation. As with all creatinine based estimates of kidney function, eGFR values calculated with the CKD-EPI equation are not accurate in patients wi th acute kidney failure, extremes of body mass or the acutely ill. http://[employer]/[facility] eGFR 105 >=60 mL/min/1.73 m?? [facility] LABOR[facility]ORY Comment: The eGFR was calculated using the CKD-EP I equation. As with all creatinine based estimates of kidney function, eGFR values calculated with the CKD-EPI equation are not accurate in patients wi th acute kidney failure, extremes of body mass or the acutely ill. http://[employer]/[facility] Specimen Anatomical Collection Method Collection Time Receive d Time (Source) Location / / Volume Laterality Blood specimen 01/13/2020 5:25 AM 020 6:09 (specimen) EDT AM EDT Resulting Agency Comment Spec In Lab Jack [place] MD CHEMISTRY ORDERABLES Performing Organization Address City/[facility] [place] [address] EKG 12 Lead (01/12/2020 5:00 PM EDT) Component Value Ref Range Test Analysis Performed Pathologis t Method Time At Signature Ventricular rate 84 BPM MUSE SYSTEM Atrial Rate 84 BPM MUSE SYSTEM P-R Interval 172 ms MUSE SYSTEM QRS Duration 72 ms MUSE SYSTEM Q-T Interval 386 ms MUSE SYSTEM QTC Calculated 456 ms MUSE SYSTEM (Bezet) Calculated P Pinon 48 degrees MUSE SYSTEM Calculated R Pinon 42 degrees MUSE SYSTEM Calculated T Pinon 46 degrees MUSE SYSTEM INTERPRETATION Normal sinus [...] [place] MD ECG ORDERABLES Performing Organization Address City/[facility]/ZIP [facility] Phon e Number MUSE SYSTEM (ABNORMAL) Basic Metabolic Panel (non-fasting) (01/12/2020 2:57 PM EDT) athologist Signature Glucose Lvl 170 65 - 199 [facility] mg/dL [facility] LABORATORY Comment: Diabetes: >=200 mg/dL plus symp toms BUN 16 10 - 20 mg/dL [facility] LABORATORY Creatinine 0.88 0.80 - 1.50 mg/dL [facility] LABORATORY Sodium 136 135 - 145 mmol/L [facility] LABORATORY Potassium 3.8 3.5 - 5.0 mmol/L [facility] LABORATORY Comment: Please note: ??Patients with WBC >100,00 0 may have falsely elevated Potassium levels. ??For accurate Potassium quantif ication in these patients send serum separator tube (gold top) for subsequent determinations. ??Contact the Clinical Chemistry Laboratory if there are any qu estions. Chloride 103 98 - 107 mmol/L [facility] CO2 21 (L) 22 - 31 mmol/L [facility] Anion Gap 12 5 - 15 mmol/L [facility] LABOR[facility]ORY Calcium 8.3 (L) 8.5 - 10.5 mg/dL [facility] LABORATORY Comment: result rechecked- Estimated GFR 90 >=60 mL/min/1.73 m?? [facility] Comment: The eGFR was calculated using the CKD-EP I equation. As with all creatinine based estimates of kidney function, eGFR values calculated with the CKD-EPI equation are not accurate in patients wi th acute kidney failure, extremes of body mass or the acutely ill. http://[employer]/[facility] eGFR 104 >=60 mL/min/1.73 m?? [facility] Comment: The eGFR was calculated using the CKD-EP I equation. As with all creatinine based estimates of kidney function, eGFR values calculated with the CKD-EPI equation are not accurate in patients wi th acute kidney failure, extremes of body mass or the acutely ill. http://[email or web address] Specimen Anatomical Collection Method Collection Time Receive d Time (Source) Location / / Volume Laterality Blood specimen 01/12/2020 2:57 PM 020 3:29 (specimen) EDT PM EDT Resulting Agency Comment Spec In Lab Jack [place] MD CHEMISTRY ORDERABLES Performing Organization Address City/State/ZIP Code Phon e Number [address] (ABNORMAL) Hemogram (01/12/2020 2:57 PM EDT) Analysis Performed At Patho logist Time Signature WBC 14.8 (H) 4.0 - 9.5 [facility] ROBERT x10(3)/[facility] LABORATORY RBC 4.42 (L) 4.58 - [place] 5.54 [facility] x10(6)/[facility] LABORATORY Hemoglobin 13.6 (L) 13.7 - [facility] ROBERT 16.5 gm/dL [facility] LABORATORY Hematocrit 39.3 (L) 40.5 - [place] 48.5 % [facility] LABORATORY MCV 88.9 82.9 - [facility] ROBERT 93.1 [facility] LABORATORY MCH 30.8 27.5 - [place] 32.1 pg [facility] LABORATORY MCHC 34.6 32.0 - [place] 35.7 gm/dL [facility] LABORATORY Platelets 172 145 - 357 [facility] x10(3)/[facility] LABORATORY RDWSD 42.5 36.0 - [place] 45.0 [facility] LABORATORY RDWCV 12.9 11.4 - [place] 13.8 % [facility] LABORATORY MPV 12.8 7.6 - 12.[address] [facility] [address] nRBC % Auto 0.0 % [facility] LABORATORY nRBC Abs Auto 0.000 0.000 - [place] 0.000 [facility] x10(3)/[facility] LABORATORY Specimen Anatomical Collection Method Collection Time Receive d Time (Source) Location / / Volume Laterality Blood specimen 01/12/2020 2:57 PM 020 3:29 (specimen) EDT PM EDT Resulting Agency Comment Spec In Lab Jack [place] MD HEMATOLOGY ORDERABLES Performing Organization Address City/State/ZIP Code Phon e Number [address] EKG 12 Lead (01/12/2020 2:48 PM EDT) Component Value Ref Range Test Analysis Performed Pathologis t Method Time At Signature Ventricular rate 63 BPM MUSE SYSTEM Atrial Rate 63 BPM MUSE SYSTEM P-R Interval 164 ms MUSE SYSTEM QRS Duration 72 ms MUSE SYSTEM Q-T Interval 418 ms MUSE SYSTEM QTC Calculated 427 ms MUSE SYSTEM (Bezet) Calculated P Pinon 8 degrees MUSE SYSTEM Calculated R Pinon 41 degrees MUSE SYSTEM Calculated T Pinon 46 degrees MUSE SYSTEM INTERPRETATION Poor data quality, interpretation may be adversel y affected MUSE SYSTEM Baseline wander Normal sinus rhythm Nonspecific ST abnormality Abnormal ECG Recommend repeat ECG Confirmed by MD Ruba, Leo Amaral ([id number]) on 01/12/2020 3:16:0 7 PM Specimen Anatomical [...] report, please contact th e number below. Jack Lewis MD IMG DX ORDERABLES Surgical Pathology Report (01/12/2020 8:46 AM EDT) Component Value Ref Test Analysis Performed At [facility] Method Time Signature Surgical [id number] ? Location: 3WST; 0311; [facility] Report The signing pathologist has [...] SANDERSON, Frederick Verified: ??01/20/2020 ?Hematopathologist Performed at: ??-[facility] Dept. of [place]ology, [place], [place] DISCUSSION Sections show necrosis, fibr in deposition with underlying hemosiderin and tight perivascular lymphocytic ag gregates. The [id number] hip replacement is noted. The findings are [...] cut surface is red-yellow and hard. Sections/Processing: Dry End Operator sections in 5 cassettes as follows: ?A1-A4: ??Dry End Operator soft tissue sections ?A5: ??Dry End Operator bone section ??MJA Specimen (Source) Anatomical Collection Method Collection Time Re ceived Time Location / / Volume Laterality 01/12/2020 8:46 AM EDT Jack Lewis MD PATHOLOGY/CYTOLOGY ORDERABLE S Performing Organization Address City/State/[facility] [place] [address] Specimen to Pathology (01/12/2020 8:46 AM EDT) Specimen Anatomical Collection Method Collection Time Receive d Time (Source) Location / / Volume Laterality AP Specimen 01/12/2020 8:46 AM 0 8:46 EDT AM EDT Narrative [facility]OR[facility] ORY - 01/12/2020 8:46 AM EDT Specimen requisition ordered. ??Separate Pathology report to follow Jack Lewis MD PATHOLOGY/CYTOLOGY ORDERABLE S Performing Organization Address City/State/[place] [address] Anaerobic Culture (01/12/2020 8:35 AM EDT) Patholo gist Method Time Signature Anaerobic No anaerobic [facility] Culture organisms [facility] LABORATORY Specimen Anatomical Collection Method Collection Time Receive d Time (Source) Location / / Volume Laterality Hip joint 01/12/2020 8:35 AM 0 9:09 synovial fluid EDT AM EDT (specimen) Comment: LEFT HIP FLUID Resulting Agency Comment Spec In Lab Jack Lewis MD MICROBIOLOGY - GENERAL ORDER BRIGIDA Performing Organization Address City/[facility]/ZIP Code Phon e Number [address] Body Fluid Culture, Aerobic (01/12/2020 8:35 AM EDT) Component Value Ref Test Analysis Performed At Patholo gist Range Method Time Signature Body Fluid No growth PA Culture [facility] Gram Stain Cytocentrifuge Gram Stain performed [facility] No Neutrophils seen. TYLER No microorganisms seen. [facility] LABORATORY Specimen Anatomical Collection Method Collection Time Receive d Time (Source) Location / / Volume Laterality Hip joint 01/12/2020 8:35 AM 0 9:08 synovial fluid EDT AM EDT (specimen) Comment: LEFT HIP FLUID Resulting Agency Comment Spec In Lab Jack Lewis MD MICROBIOLOGY - GENERAL ORDER BRIGIDA Performing Organization Address City/State/[place] [address] Cell Count Body Fluid Hip, Left (01/12/2020 8:35 AM EDT) Patholo gist Method Time Signature Spec Type BF Hip, Left [facility] Color BF Brown [facility] Appearance BF Cloudy [facility] WBC BF [address] /[facility] LABORATORY Comment: Body Fluid was manually performed [...] for interpretation. Polymorph % Not Measured % [facility] Comment: Polymorphonuclear cell percent and absol lower [place] values may contain Neutrophils, Eosinophils, and Basophils. Body fluid s mear will be scanned manually for concordance. Mononuc % Not Measured % [facility] LABORATORY Comment: Mononuclear cell percent and absolute va lues may contain Lymphocytes and Monocytes. Body fluid smear will be scan anthony manually for concordance. Polymorph BF ABS Not Measured /[facility] LABORATORY Comment: Polymorphonuclear cell percent and absol lower [place] values may contain Neutrophils, Eosinophils, and Basophils. Body fluid s mear will be scanned manually for concordance. 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 documented in this encounter Administered Medications Inactive Administered Medications - up to 3 most recent administrations Medication Order MAR Action Action Date Dose Rate Site acetaminophen (Tylenol) tablet Given 01/13/2020 1:07 PM EDT 1,00 0 mg 1,000 mg 1,000 [...] Given 01/12/2020 8:10 PM EDT 81 mg BUpivacaine (PF) (MARCAINE) Given 01/12/2020 10:22 AM 50 mLs 19- Surgical Site 0.25 % (2.5 mg/mL) injection EDT ONCE PRN, Starting on Charlette 01/12/20 at 1022, Until Thu01/13/20 at 1537, Intra-Operative (Intra-Procedure), Routine celecoxib (CeleBREX) capsule 200 mg Given 01/13/2020 8:42 AM EDT 200 mg 200 mg, Oral, 2 TIMES DAILY, First dose on Charlette 01/12/20 at 1200, Until Discontinued, Routine Given 01/12/2020 8:10 PM EDT 200 mg cloNIDine injection Given 01/12/2020 10:21 AM 50 mcg 19- Surg ical Site ONCE PRN, Starting on Charlette EDT 01/12/20 at 1021, Until Thu01/13/20 at 1537, Intra-Operative (Intra-Procedure), Routine gabapentin (Neurontin) capsule 300 [...] at 1537, Pain, Routine ketorolac (TORADOL) injection Given 01/12/2020 10:21 AM 30 mg 19- Surg ical Site ONCE PRN, Starting on Charlette EDT 01/12/20 at 1021, Until Thu01/13/20 at 1537, Intra-Operative (Intra-Procedure), Routine lactated ringers infusion New Bag 01/12/2020 3:48 [...] mg, Oral, DAILY, First dose on Charlette 01/12/20 at 1400, Until Discontinued, DO NOT CRUSH [...] 01/13/2020 acetaminophen (Tylenol) tablet 1,000 mg (COMPLETED) 06 (Given - Provider: Mounika Zapien RN) 1,000 mg, Oral, ONCE, 1 dose, Charlette 0 at 0630, Administer on arrival in Same Day Program, Day of Surgery (Day of Procedure), Routine acetaminophen (Tylenol) tablet 1,000 mg 1401 (Given - Provider: Joselo Madrid)2109 (Given - Provider: Francisca Ravi, CHAZ) 0506 (Given - Provider: Francisca Ravi, CHAZ)1307 (Given - Provider: Tanvir Pratt, CHAZ) 1,000 mg, Oral, EVERY 8 HOURS SCHEDULED, First dose on Charlette 01/12/20 at 1400, Until Discontinued, Maximum dose of acetaminophen is 4000 mg from all sources in 24 hours., Routine aspirin EC tablet 81 mg 1400 (Not Given - Provider: Joselo Madrid - Reason: See comment - Comment: Duplicate order)2009 (Given - Provider: Francisca Ravi, CHAZ) 0842 (Given - Provider: Tanvir Pratt, RN) 81 mg, Oral, 2 TIMES DAILY, First dose o n Charlette 01/12/20 at 1400, Until Discontinued, Routine aspirin EC tablet 81 mg (CANCELED) 1251 (Given - Provider: Harriett Gallegos RN) 81 mg, Oral, 2 TIMES DAILY, First dose o n Charlette 01/12/20 at 1200, Until Discontinued, Routine ceFAZolin (Ancef) 2g in dextrose 5% 100 mL (2 x 1g/50mL premix bags) IV (COMPLETED) 0753 (Given - Provider: Ramy Elias MD) 2 [...] Suspected): Prophylaxis celecoxib (CeleBREX) capsule 200 mg 1200 (Not Given - Provider: Harriett Gallegos RN - Reason: Contraindicated - Comment: Dose given at 0600)2009 (Given - Provider: Francisca Ravi RN) 08 (Given - Provider: Tanvir Pratt RN) 200 [...] mg (COMPLETED) 616 (Given - Provider: Mounika Zapien RN) 300 mg, Oral, ONCE, 1 dose, Charlette 01/12/20 at 0630, Administer on arrival in Same Day Program, Day of Surgery (Day of Procedure), Routine gabapentin (Neurontin) capsule 300 mg(Linked Group 1) 300 mg, Oral, NIGHTLY, First dose on 01/14/20 at 2100, Until Discontinued, Routine gabapentin (Neurontin) [...] Patient/family refused) 0842 (Given - Provider: Tanvir Pratt, CHAZ) 17 g, Oral, 2 TIMES DAILY, First dose on Charlette 01/12/20 at 1400, Until Discontinued, Routine senna-docusate (Pericolace) 8.6-50 mg per tablet 2 tablet 1400 (Not Given - Provider: Joselo Madrid - Reason: Patient/family refused)2008 (Given - Provider: [...] MD)0930 (Anesthesia Volume Adjustment - Provider: Ramy Elias MD)0954 (Anesthesia Volume Adjustment - Provider: Ramy [...] and 30mg Toradol) ONCE PRN, Starting Charlette 01/12/20 at 1022, Until Thu01/13/20 at 1537, Intra- Operative (Intra-Procedure), Routine cloNIDine injection (CANCELED) 1021 (Giv en - Provider: Jack Lewis MD - Comment: mixed with 50ml of 0.25%Bupivicaine and 30mg Toradol) ONCE PRN, Starting Charlette 01/12/20 at 1021, [...] Routine oxyCODONE (Roxicodone) tablet 5-15 mg 11 26 (Given - Provider: Josie L Vincent, RN)1548 (Given - Provider: Joselo Madrid)2009 (Given - Provider: Francisca Ravi, CHAZ) 0507 (Given - Provider: Francisca funez, RN)1307 (Given - Provider: Tanvir Pratt, CHAZ) 5-15 mg, Oral, EVERY 4 HOURS [...] Routine documented in this encounter Care Teams Pharmacy Care Coordinator Relationship Specialty Start Date End Date Coty Montes MD PCP - General Internal Medicine 01/12/20 07/18/20 [address] [place] [address] documented as of this encounter
--- OUTSIDE RECORDS SUMMARY | 2022-07-01 13:48 | XMS_ITS | Encounter Summary ---
:1955 Author Organization [facility] [place] [address] Care Team Providers Name Role Phone Maldonado Ibarra MD Primary Care Provider Encounter Details Date Type Department Care Team Description 10/24/2015 Hospital Encounter Radiology Library at [facility], [place] [address] Social History Tobacco Use Types Packs/Day Years Used Date Never Assessed Alcohol Habits Answer Date Recorded How often do you have a drink containing alcohol? Monthly or less 09/28/2020 How many drinks containing alcohol do you have on a 1 or 2 09/28/2020 typical day when you are drinking? How often do you have six or more drinks on one Never 09/28/2020 occasion? Comment: Not asked Sex Assigned at Date Recorded Not on file documented as of this encounter Medications at Time of Discharge Medication Sig Dispensed Refills Start Date End Date CIS Free Text Med - 0 10/29/201001/03 Aspirin amoxicillin (AMOXIL) 500 2000 MG = 4 0 10/29/2010 01/04/2016 mg capsule Capsule(s), PO, 1 hr prior to procedure documented as of this encounter Plan of Treatment Upcoming Encounters Date Type Specialty Care Team Description 07/08/2022 Office Visit Radiation Oncology Shelley Kimble, GERMINATION WORKER [facility] RADIATION ONCWARNER [place], [place] [address] (Wo rk) documented as of this encounter Procedures Procedure Name Priority Date/Time Associated Diagnosis Comme nts FILM LIBRARY Routine 10/24/2015 12:00 AM Pain Results for this STORAGE ONLY MR EST procedure ar e in SHOULDER the results section. documented in this encounter Results Film Library- Storage only MR Shoulder (10/24/2015 12:00 AM EST) Specimen (Source) Anatomical Location Collection Method / Collectio n Time Received Time / Laterality Volume Narrative [facility] - 01/04/2016 9:45 AM EDT This exam is for storage only and is aut o-finalizing. Dr Castañeda [facility] FILM LIBRARY ORDERABLES Performing Organization Address City/State/ZIP Code Phon e Number [place], [place] documented in this encounter Visit Diagnoses Diagnosis Pain Generalized pain documented in this encounter Care Teams Cheese Supervisor Relationship Specialty Start Date End Date Maldonado Ibarra MD PCP - General 08/06/10 07/23/17 [address] [place] [address] documented as of this encounter
--- OUTSIDE RECORDS SUMMARY | 2022-07-01 13:48 | XMS_ITS | Encounter Summary ---
:1955 Author Organization [facility] [address] Care Team Providers Name Role Phone None Primary Care Provider Unavailable Reason for Visit Auth/Cert Specialty Diagnoses / Procedures Referred By Contact Refer red To Contact Diagnoses Broken internal left hip prosthesis, sequela Failed Left REGGIE Procedures PRO REVISE TOTAL HIP REPLACEMENT @TOTAL HIP REVISION ARTHROPLASTY, COMPLETE (WRVU 30.28) MODIFIER RECLAIM DEPUY Referral ID Status Reason Start Date Expiration Date Visits Requ ested Visits Authorized [id number] 1 1 Encounter Details Date Type Department Care Team Description 01/11/2020 Clinical [place] [address] Social History Tobacco Use Types Packs/Day [...] Sign Reading Time Taken Comments Blood Pressure 163/93 01/11/2020 9:57 AM first blood p ressure EDT 170/100 Pulse 72 01/11/2020 9:57 AM EDT Temperature - - Respiratory Rate - - Oxygen Saturation 97% 01/11/2020 9:57 AM EDT Inhaled Oxygen - - Concentration Weight 100.3 kg (221 lb 3.2 01/11/2020 9:57 AM oz) EDT Height 180.3 cm (5' 11) 01/11/2020 9:57 AM EDT Body Mass Index 30.85 01/11/2020 9:57 AM EDT documented in this encounter Progress Notes Mary Kay Aguilar RN - 01/11/2020 10:20 AM EDT PAT questionnaire reviewed with patient while in Pre Admission testing. Pt has tolerated anesthesia in the past. Pre-operative instruction booklet reviewed. Patient verbalizes a good understanding of all information reviewed. Pt reports blood pressure has been borderline. At PCP request he has been checking it at home. Pt sent me photo of blood pressures, I will scan it into pt's chart. PLAN: Testing: Sent to for labs Special medication instructions: Clearfast 1 bottle given to patient with instructions to drink 3 hours prior to surgery. Procedure date: 01-12-20 Dr Lewis documented in this encounter Plan of Treatment Upcoming Encounters Date Type Specialty Care Team Description 07/08/2022 Office Visit Radiation Oncology Shelley Kimble, MANUFACTURING PROJECT MANAGER [facility] RADIATION ONCWARNER [place], [place] [address] (Wo rk) documented as of this encounter Procedures Procedure Name Priority Date/Time Associated Comments Diagnosis IMPLANTABLE DEVICES 01/11/2020 12:00 Resu lts for this SCAN AM EDT procedure are i n the results section. IMPLANTABLE DEVICES 01/11/2020 12:00 Resu lts for this SCAN AM EDT procedure are i n the results section. documented in this encounter Results SCAN DOC: IMPLANTABLE DEVICES (01/11/2020 12:00 AM EDT) Narrative 01/11/2020 12:00 AM EDT This result has an attachment that is no t available. Ordered by an unspecified provider. Scanning Provider MEDIA MGR SCAN EXT ORDR/RSLT SCAN DOC: IMPLANTABLE DEVICES (01/11/2020 12:00 AM EDT) Narrative 01/11/2020 12:00 AM EDT This result has an attachment that is no t available. Ordered by an unspecified provider. Scanning Provider MEDIA MGR SCAN EXT ORDR/RSLT documented in this encounter Visit Diagnoses Not on filedocumented in this encounter Care Teams Supervisor Sewer Maintenance Relationship Specialty Start Date End Date None PCP - General 07/20/19 01/11/20 None documented as of this encounter
--- OUTSIDE RECORDS SUMMARY | 2022-07-01 13:48 | XMS_ITS | Encounter Summary ---
:1955 Author Organization [facility] [place] [address] Care Team Providers Name Role Phone Maldonado Ibarra MD Primary Care Provider Encounter Details Date Type Department Care Team Description 09/09/2016 Hospital Encounter XRay at [facility] Jack Lewis, Hip joint [address] [place] [address] SANDERSON replacement status [facility] [id number] ORTHOPAEDIC SURGERY [place], [place] [address] Social History Tobacco Use Types Packs/Day Years Used Date Never Smoker Smokeless Tobacco: Never Used Alcohol Use Standard Drinks/Week Comments Yes 0 (1 standard drink = 0.6 oz pure [...] Dispensed Refills Start Date End Date oxyCODONE-acetaminophen Take by mouth as 0 201501/13/2020 (PERCOCET) 5-325 mg needed. For Migraines Tablet and Hip Pain documented as of this encounter Plan of Treatment Upcoming Encounters Date Type Specialty Care Team Description 07/08/2022 Office Visit Radiation Oncology Lamin, Shelley M, PRICE ECONOMIST [facility] RADIATION [place]WARN[place], [place] [address] (Wo rk) documented as of this encounter Procedures Procedure Name Priority Date/Time Associated Diagnosis Comme nts XR PELVIS AND HIP 2 Routine 09/09/2016 8:59 AM Hip joint Re sults for this VIEWS BILATERAL EST replacement status proced ure are in the results section. documented in this encounter Results XR Pelvis w AP & Lat Hip Bilat (09/09/2016 8:59 AM EST) Anatomical Region Laterality Modality Pelvis, Hip Bilateral Digital Radiography Specimen (Source) Anatomical Location Collection Method / Collectio n Time Received Time / Laterality Volume Impressions 09/09/2016 9:11 AM EST Progression of periprosthetic lucencies bilaterally raises concern for loosening. Narrative 09/09/2016 9:11 AM EST EXAMINATION: XR PELVIS W AP AND LAT HIP BILAT CLINICAL HISTORY: check hardware alignme nt TECHNIQUE: AP pelvis, AP and lateral of each hip COMPARISON: October 29, 2010 FINDINGS: Bilateral total hip prostheses are prese nt. The prostheses are well positioned. There has been interval progression of l ucencies surrounding the femoral components bilaterally. No periprostheti c fracture is seen. Procedure Note Og Acosta MD - 09/09/2016 EXAMINATION: XR PELVIS W AP AND LAT HIP BILAT CLINICAL HISTORY: check hardware alignme nt TECHNIQUE: AP pelvis, AP and lateral of each hip COMPARISON: October 29, 2010 FINDINGS: Bilateral total hip prostheses are prese nt. The prostheses are well positioned. There has been interval progression of l ucencies surrounding the femoral components bilaterally. No periprostheti c fracture is seen. IMPRESSION Progression of periprosthetic lucencies bilaterally raises concern for loosening. Jack Lewis MD IMG DX ORDERABLES documented in this encounter Visit Diagnoses Diagnosis Hip joint replacement status Hip joint replacement by other means documented in this encounter Care Teams Counseling Aide Relationship Specialty Start Date End Date Maldonado Ibarra MD PCP - General 08/06/10 07/23/17 [address] [place] [address] documented as of this encounter
--- OUTSIDE RECORDS SUMMARY | 2022-07-01 13:48 | XMS_ITS | Encounter Summary ---
:1955 Author Organization [facility] Address [facility] [address] [place] [address] Care Team Providers Name Role Phone Maldonado Ibarra MD Primary Care Provider Reason for Visit Reason Onset Date Comments Letter Request From Patient 04/15/2016 Encounter Details Date Type Department Care Team Description 04/15/2016 Telephone Orthopaedics at [facility] Raffi Raymond MD Letter Request From [facility] Saida henley [facility] [place] [address] ORTHOPAEDIC SURGERY [place] [id number] Social History Tobacco Use Types Packs/Day Years [...] this encounter Miscellaneous Notes Telephone Encounter - Natalia Mojica - 04/16/2016 3:24 PM EDT LETTERS MAILED Telephone Encounter - Natalia Mojica - 04/15/2016 1:[address] Raymond in agreement with this plan? Telephone Encounter - Dianelys Sesay - 04/15/2016 10:42 AM EDT Patient called back. His date of injury was 09/01, not 08/29, and he would like his claim number is [id number] Telephone Encounter - Dianelys Sesay - 04/15/2016 10:26 AM EDT Name: Dominick Castro Mailing address: [address] [phone] : 1955 Provider Last seen by: KATHE Diagnosis: Right shoulder complete rotator cuff tear Date of Injury: 08/29/2015 Date of Surgery:N/A What type of letter is needed? 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 6 HOURS PER DAY 4 DAYS PER WEEK What do you want your start date to be? 04/21/16 What is an estimate of end date? What restrictions do you need? RIGHT SHOULDER NOT LIFTING ABOVE HEAD, NO LIFTING MORE THAN 25#, NO PUSHING, SOME PULLING OK , TAKE BREAKS 15 MIN LONG EVERY 2 HOURS What activities CAN you do? Would you like to cotton picker operator your letter? MAIL TO HOME ADDRESS [employer] If yes, when & what phone number do I call when done? If no, mailed or faxed? To what address/fax#? [employer] Assigned Risk Services Attn. Dominick [address] [address] [place] [address] To whose attention? documented in this encounter Plan of Treatment Upcoming Encounters Date Type Specialty Care Team Description 07/08/2022 Office Visit Radiation Oncology Shelley Kimble, RIGGING SLINGER [facility] RADIATION ONCWARNER [place], [place] [address] (Wo rk) documented as of this encounter Visit Diagnoses Not on filedocumented in this encounter Care Teams Cake Cutter Machine Relationship Specialty Start Date End Date Maldonado Ibarra MD PCP - General 08/06/10 07/23/17 [address] [place] [address] documented as of this encounter
--- OUTSIDE RECORDS SUMMARY | 2022-07-01 13:48 | XMS_ITS | Encounter Summary ---
:1955 Author Organization [facility] [place] [address] Care Team Providers Name Role Phone Maldonado Ibarra MD Primary Care Provider Encounter Details Date Type Department Care Team Description 09/25/2016 Orders Only Orthopaedics at [facility] [place] [address] Social History Tobacco Use Types Packs/Day [...] Office Visit Radiation Oncology Shelley Kimble APRN [facility] RADIATION ONCWARNER [place], [place] [address] (Wo rk) documented as of this encounter Visit Diagnoses Not on filedocumented in this encounter Care Teams Staffing Branch Manager Relationship Specialty Start Date End Date Maldonado Ibarra MD PCP - General 08/06/10 07/23/17 [address] [place] [address] documented as of this encounter
--- OUTSIDE RECORDS SUMMARY | 2022-07-01 13:48 | XMS_ITS | Encounter Summary ---
:1955 Author Organization [facility] [place] [address] Care Team Providers Name Role Phone Maldonado Ibarra MD Primary Care Provider Reason for Visit Reason Comments Right Shoulder Pain RIght Shoulder Increased Rayna n, DOI: 09/01/15 WC Encounter Details Date Type Department Care Team Description 09/02/2016 Office Visit Orthopaedics at [facility] Raffi Raymond MD Complete tear of One [facility] rot ator cuff [facility] [place] [address] ORTHOPAEDIC [phone] SURGERY [place], [place] [address] Social History Tobacco Use Types [...] Sign Reading Time Taken Comments Blood Pressure 154/73 09/02/2016 10:51 AM EST Pulse 57 09/02/2016 10:51 AM EST Temperature - - Respiratory Rate - - Oxygen Saturation - - Inhaled Oxygen Concentration - - Weight 95.7 kg (211 lb) 09/02/2016 10:51 AM EST stated Height 180.3 cm (5' 11) 09/02/2016 10:51 AM EST stated Body Mass Index 29.43 09/02/2016 10:51 AM EST documented in this encounter Progress Notes Lori Kennedy APRN - 09/02/2016 11:30 AM EST PATIENT NAME: Dominick Castro AGE: 60 y.o. MR#: [id number] DATE OF VISIT: 09/02/2016 DATE OF INJURY/ONSET: 08/28/16 CHIEF COMPLAINT: Right Shoulder Pain F/U HISTORY OF PRESENT ILLNESS Mr. Castro a 60 y.o. 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 His visits, patient was diagnosed with a massive rotator cuff tear and offered continued conservative management with PT and injection therapy versus partial rotator cuff repair versus debridement as a temporizing measure before reverse total shoulder arthroplasty. Patient tried a brief course of physical therapy which made his symptoms worse. Otherwise he has not employed any other interventions aside from use of when necessary Percocet as prescribed by his PCP. Patient hashistory of migraines and cannot take other meds. He states his symptoms are quite persistent and worsening. Has pain at rest and pain with any activity requiring him to try to reach above his head or away from his body. There have been no new injuries. He has not been able to work. He is here today toagain discuss continued current conservative versus surgical management. Outside reports reviewed: none. Patient's medications, allergies, past medical, surgical, social and family histories were reviewed and updated as appropriate. PAST MEDICAL HISTORY: Active Ambulatory Problems Diagnosis Date Noted ??? Rotator cuff tear 01/14/2016 ??? Migraines 09/02/2016 Resolved Ambulatory Problems Diagnosis Date Noted ??? No Resolved Ambulatory Problems No Additional Past Medical History FAMILY HISTORY: Family History Negative family history of: Deep Vein Thrombosis, Thrombosis Social History Occupational History ??? Not on file. Social History Main Topics ??? Smoking status: Never Smoker ??? Smokeless tobacco: Never Used ??? Alcohol use Yes Comment: Occasionally, 0-1 drinks a week ??? Drug use: No ??? 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 Current Outpatient Prescriptions on File Prior to Visit Medication Sig Dispense Refill ??? oxyCODONE-acetaminophen (PERCOCET) 5-325 mg Tablet Take by mouth as needed. For Migraines and Hip Pain 0 No current facility-administered medications on file prior to visit. No Known Allergies ROS: Negative for fever, chills, SOB, chest pain, nausea, vomiting, and diarrhea. PHYSICAL EXAM: Blood pressure 154/73, pulse 57, height 180.3 cm (5' 11), weight 95.7 kg (211 lb). General: alert and oriented. He appears in no acute discomfort and is resting comfortably in a chairin the exam room. Cervical Spine: FROM without any pain or reproduction of pain. Right Shoulder Exam Inspection: No ecchymosis, erythema, or localized swelling over the right shoulder Palpation: Right shoulder is diffusely tender to palpation. The lateral aspect of the humerus extending up into the deltoid is particularly tender. ROM: Forward Flexion: 100?? active, same passive due to discomfort. Abduction: 90 deg active, 110 deg passive. External Rotation: 20??, 30?? passive Internal Rotation: Reaches to belt line. Strength: 3/5 forward flexion, empty can, and internal and external rotation. Resisted range of motion is painful. Orthopedic testing: Unable to perform extensive special testing due to limited range of motion and discomfort Neurological: Normal motor function of the radial, median, ulnar, axillary and musculocutaneous nerves. Normal sensation along radial, median, ulnar, axillary, and lateral antebrachial cutaneous nerve distributions. Radial pulses are 2+ and equal bilaterally with good hand perfusion. RADIOLOGICAL STUDIES: No new studies. MRI of the patient's right shoulder performed at an outside hospital reveals large full-thickness rotator cuff tear of the supra and infraspinous tendons with retraction and mild atrophy. ASSESSMENT/PLAN: Dominick Castro is a 60 y.o. 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 Imaging andexam consistent with massive rotator cuff tear. We discussed possible options as recommended by Dr. Raymond including continued conservative management, subacromial cortisone injection and further physical therapy for symptomatic management, proceeding with shoulder arthroscopy for partial rotator cuff repair versus debridement, or consulting with one of our reverse total shoulder arthroplasty surgeons such as Dr. Dennis. Discussed that if the patient elects to pursue injection, this would preclude him from being able to undergo shoulder arthroscopy. Patient is quite disabled at this point due to his shoulder pain and loss of function. He would like to again consider his options and discuss them with his family. He'll call us back when he knows what how he would like to proceed. documented in this encounter Plan of Treatment Upcoming Encounters Date Type Specialty Care Team Description 07/08/2022 Office Visit Radiation Oncology Shelley Kimble APRN [facility] RADIATION [place], [place] [address] (Wo rk) documented as of this encounter Visit Diagnoses Diagnosis Complete tear of right rotator cuff Complete rupture of rotator cuff documented in this encounter Care Teams Business Center Representative Relationship Specialty Start Date End Date Maldonado Ibarra MD PCP - General 08/06/10 07/23/17 [address] [place] [address] documented as of this encounter
--- OUTSIDE RECORDS SUMMARY | 2022-07-01 13:48 | XMS_ITS | Encounter Summary ---
:1955 Author Organization [facility] [place] [address] Care Team Providers Name Role Phone None Primary Care Provider Unavailable Encounter Details Date Type Department Care Team Description 07/20/2019 Hospital Encounter [facility] [place] [facility] Debbie Jack Eun, History of total [address] [place] [address] [facility] hip arthroplasty, [facility] bilateral [phone] ORTHOPAEDIC SURGERY [place], [place] [address] Social History Tobacco Use Types [...] mg Capsule mouth nightly for 30 days. celecoxib (CeleBREX) Take 1 capsule by 60 capsule 0 01/13/20 20 01/13/2020 200 mg Capsule mouth 2 times daily for 30 days. polyethylene glycol Take 17 g by mouth 0 01/13/20 20 02/08/2020 (Miralax) 17 gram daily as needed (For Powder in Packet constipation) for up to 30 days. omeprazole (PriLOSEC) Take 1 capsule by 42 capsule 0 020 02/08/2020 20 mg Capsule, Delayed mouth daily for 42 Release(E.C.) days. oxyCODONE (Roxicodone) Take 1-2 tablets by 42 tablet 0 0509/201902/08/2020 5 mg Tablet mouth every 4 hours as needed for Pain for up to 42 doses. senna (Senna) 8.6 mg Take 1 tablet by 0 0 02/08/2020 Tablet mouth 2 times daily as needed for Constipation for up to 30 days. naproxen (NAPROSYN) 500 Take 1 tablet by 84 tablet 0 201902/08/2020 mg Tablet mouth 2 times daily (with meals) for 42 days. meloxicam (MOBIC) 15 mg take 1 tablet by 0 201801/11/2020 Tablet mouth once daily oxyCODONE-acetaminophen Take by mouth as 0 201501/13/2020 (PERCOCET) 5-325 mg needed. For Migraines Tablet and Hip Pain documented as of this encounter Plan of Treatment Upcoming Encounters Date Type Specialty Care Team Description 07/08/2022 Office Visit Radiation Oncology Shelley Kimble, MEDICAL TECHNOLOGIST [facility] RAD[facility] [place], [place] [address] (Wo rk) documented as of this encounter Procedures Procedure Name Priority Date/Time Associated Diagnosis Comme nts XR PELVIS AND HIP 2 Routine 07/20/2019 10:19 AM History of tot al hip Results for this VIEWS BILATERAL EST arthroplasty, procedure a re in bilateral the results section. documented in this encounter Results XR Pelvis and Hip 2 Views Bilateral (07/20/2019 10:19 AM EST) Anatomical Region Laterality Modality Pelvis, Hip Bilateral Digital Radiography Specimen (Source) Anatomical Location Collection Method / Collectio n Time Received Time / Laterality Volume Impressions 07/20/2019 11:59 AM EST 1. ??Bilateral total hip arthroplasties are intact without dislocation. Unremarkable appearance of the acetabula r components. 2. ??Extensive bilateral periprosthetic lucencies in the femoral stems, left greater than right. This has progressed on the left and is stable on the right. Findings are concerning for small partic le disease or loosening. Thank you for letting us participate in the care of this patient. For questions regarding this report, please contact e number below. ? Narrative 07/20/2019 11:59 AM EST EXAMINATION: XR PELVIS AND HIP 2 VIEWS BILATERAL CLINICAL HISTORY: L>R femer/hip pain; s/ p bilat REGGIE 2007 (Fermin) TECHNIQUE: AP pelvis, AP and frog-leg view of the c hest COMPARISON: 09/09/2016 FINDINGS: Left: Prosthetic femoral head is well ce ntered within the acetabular component. Smoothly lobular periprosthetic lucencie s throughout the proximal femur have increased, most notable along the arvin medial portion of the femoral stem on the frog-leg view, and medially on the A P view. No lucency is noted along the tip of the stem. There is no acute fract ure. Right: Prosthetic femoral head is well-s eated centrally within the acetabular component. Smoothly lobular periprosthet ic lucencies surrounding the proximal two thirds of the femoral stem are uncha nged. There is no lucency along the distal portion of the stem. Heterotopic ossification about both hip joints is unchanged. Pubic symphysis is normal. There is no focal osseous lesion . Procedure Note Nadia Ann MD - 07/20/2019Formatt ing of this note might be different from the original. EXAMINATION: XR PELVIS AND HIP 2 VIEWS B ILATERAL CLINICAL HISTORY: L>R femer/hip pain; s/ p bilat REGGIE 2007 ([place]in) TECHNIQUE: AP pelvis, AP and frog-leg view of the c hest COMPARISON: 09/09/2016 FINDINGS: Left: Prosthetic femoral head is well ce ntered within the acetabular component. Smoothly lobular periprosthetic lucencie s throughout the proximal femur have increased, most notable along the arvin medial portion of the femoral stem on the frog-leg view, and medially on the A P view. No lucency is noted along the tip of the stem. There is no acute fract ure. Right: Prosthetic femoral head is well-s eated centrally within the acetabular component. Smoothly lobular periprosthet ic lucencies surrounding the proximal two thirds of the femoral stem are uncha nged. There is no lucency along the distal portion of the stem. Heterotopic ossification about both hip joints is unchanged. Pubic symphysis is normal. There is no focal osseous lesion . IMPRESSION 1. Bilateral total hip arthroplasties ar e intact without dislocation. Unremarkable appearance of the acetabula r components. 2. Extensive bilateral periprosthetic negrita cencies in the femoral stems, left greater than right. This has progressed on the left and is stable on the right. Findings are concerning for small partic le disease or loosening. Thank you for letting us participate in the care of this patient. For questions regarding this report, please contact e number below. Jack Lewis MD IMG DX ORDERABLES documented in this encounter Visit Diagnoses Diagnosis History of total hip arthroplasty, bilat eral documented in this encounter Care Teams Chemist Biological Relationship Specialty Start Date End Date None PCP - General 07/20/19 01/11/20 None documented as of this encounter
--- OUTSIDE RECORDS SUMMARY | 2022-07-01 13:48 | XMS_ITS | Encounter Summary ---
:1955 Author Organization [facility] [place] [address] Care Team Providers Name Role Phone Maldonado Ibarra MD Primary Care Provider Encounter Details Date Type Department Care Team Description 10/17/2016 Orders Only Orthopaedics at [facility] Jack Lewis, Pain of both hip [facility] [place] [address] ORTHOPAEDIC SURG [place], [place] [address] (Wo rk) Social History Tobacco [...] Office Visit Radiation Oncology Shelley Kimble APRN [facility] RAD[facility]ATION [place], [place] [address] (Wo rk) documented as of this encounter Visit Diagnoses Diagnosis Pain of both hip joints documented in this encounter Care Teams Team Sports Sales Associate Relationship Specialty Start Date End Date Maldonado Ibarra MD PCP - General 08/06/10 07/23/17 [address] [place] [address] documented as of this encounter
--- OUTSIDE RECORDS SUMMARY | 2022-07-01 13:48 | XMS_ITS | Encounter Summary ---
:1955 Author Organization [facility] [place] [address] Care Team Providers Name Role Phone None Primary Care Provider Unavailable Reason for Visit Reason Onset Date Comments Pre Procedure Call 10/31/2019 Encounter Details Date Type Department Care Team Description 10/31/2019 Telephone Orthopaedics at [facility] Jack Lewis MD Pre Procedure Call [facility] [place] [phone] ORTHOPAEDIC SURGERY [phone] [place] [id number] (Wo rk) Social History Tobacco Use Types [...] this encounter Miscellaneous Notes Telephone Encounter - Mary Kay Parada - 10/31/2019 12:23 PM EST I called and left a message for patient to call [phone] directly and schedule surgery with Dr. Zaidi December. documented in this encounter Plan of Treatment Upcoming Encounters Date Type Specialty Care Team Description 07/08/2022 Office Visit Radiation Oncology Shelley Kimble, NETWORK DESKTOP SUPPORT SPECIALIST [facility] [place], [place] [address] (Wo rk) documented as of this encounter Visit Diagnoses Not on filedocumented in this encounter Care Teams Integration Consultant Relationship Specialty Start Date End Date None PCP - General 07/20/19 01/11/20 None documented as of this encounter
--- OUTSIDE RECORDS SUMMARY | 2022-07-01 13:48 | XMS_ITS | Encounter Summary ---
:1955 Author Organization [facility] [place] [address] Care Team Providers Name Role Phone None Primary Care Provider Unavailable Reason for Visit Reason Comments Follow-up XR, L>R femer/hip pain; s/p bilat REGGIE 2007 ([place]) - consult with MD Consultation (Routine) - Closed Specialty Diagnoses / Procedures Referred By Contact Refer red To Contact Orthopaedics Diagnoses L>R upper leg/hip pain; s/p bilat REGGIE 2007 ([place]) None Jack Lewis MD None [facility] ORTHOPAEDIC SURG [place], [place] [address] Phone: Fax: Referral ID Status Reason Start Date Expiration Date Visits V isits Requested Authorized [id number] Closed Consult, 07/12/2019 07/11/2020 1 1 Test & Treat Encounter Details Date Type Department Care Team Description 07/20/2019 Office Visit Orthopaedics at [facility] Jack Lewis, Hip pain, bilateral; [facility] History of total hip arthroplasty, [place] [address] ORTHOPAEDIC SURG [place], [place] [address] (Wo rk) Social History Tobacco [...] Sign Reading Time Taken Comments Blood Pressure 164/83 07/20/2019 10:32 AM EST Pulse 60 07/20/2019 10:32 AM EST Temperature - - Respiratory Rate - - Oxygen Saturation - - Inhaled Oxygen Concentration - - Weight 97.5 kg (215 lb) 07/20/2019 10:32 AM EST Height 180.3 cm (5' 11) 07/20/2019 10:32 AM EST Body Mass Index 29.99 07/20/2019 10:32 AM EST documented in this encounter Progress Notes Juan José Gray MD - 07/20/2019 11:00 AM EST Arthroplasty/Orthopaedic History: 1. 07/31/2008 Bilateral metal on metal total hip arthroplasty Dr. Christensen using Carey [employer] Nephew SL-Plus stems and bilateral Gypsum acetabular components with Ultamet liners. HPI: Dominick Castro is a very pleasant 63 y.o. year-old male and is now 12 years post bilateral metal on metal total hip replacements. The patient has been doing well. Pain is controlled with current analgesics. Medication(s) being used: ibuprofen (OTC).. No fevers, chills, nausea, vomiting, or symptoms of infection. Dominick has been ambulating with no assistive device and working with PT. He is not taking narcotic pain medicine. He reports that he has had very minimal hip pain for the past 10 years, however over the last year he has had progressively increasing thigh pain, left more so than right. He finds it when ever he is doing a tensing type movement, taking a hard step, or quickly turning it will occur. He also notes significant startup pain particularly when he gets up for the first few steps in the morning. Denies fevers or chills and has had no problems with his incision. Denies significant limp or Trendelenburg gait. He has no significant groin pain or back pain and notes that majority of his pain is in his thigh. ROS: Denies: fever, chills, night sweats, nausea, or vomiting BP 164/83 (BP Location (NBP): Right arm, Patient Position: Sitting, BP Cuff Sizes: Large Adult (32-43 cm)) Pulse 60 Ht 180.3 cm (5' 11) Wt 97.5 kg (215 lb) BMI 29.99 kg/m?? Physical Exam: Well-appearing male in no acute distress. Alert and Oriented x 3 and answers all questions appropriately. The incision is well healed, with no signs of infection. I have made the following determinations: Post Op Right Hip Exam: Leg length: Longer leg: equal Limb Length discrepancy: 0cm Motion: Flexion contracture: 0 Total degrees of Flexion:120 Total degrees of Abduction:40 Total degrees of Ext Rotation: 30 Total degrees of Internal Rotation: 10 Gait Abnormality: Normal Pulses Palpable: Right PT: Yes Right DP:Yes Motor/Sensory: Right Distal Motor: Normal Distal Sensory: Normal Hip Abductors 5 Trendelenburg test: negative Post Op Left Hip Exam: Leg Length: Longer leg: equal Limb Length discrepancy: 0cm Motion: Flexion contracture: 0 Total degrees of Flexion: 110 Total degrees of Abduction: 30 Total degrees of Ext Rotation: 30 Total degrees of Internal Rotation: 0 Gait Abnormality: Normal Pulses Palpable: Left PT: Yes Left DP: Yes Motor/Sensory: Left Distal Motor: Normal Distal Sensory: Normal Hip Abductors: 5 Pain with SLR but 5/5 strength Trendelenburg test: negative X-RAYS: Multiple radiographic views were obtained at my request and reviewed with the patient. X-rays show a bilateral metal metal total hip arthroplasty. There is significant osteolysis around the bilateral femoral components with cortical thickening in the diaphysis, left more so than right. There is slight progression since previous x-rays in 2017. There is not appear to be any denzel fracture linealthough I'm concerned about the degree of his bone loss. Both acetabular components appears to be well fixed and there is no osteolysis present. Questionnaire Responses: [facility] Surgical Postop Visit 07/20/2019 PROMIS-10 General Health Good PROMIS-10 Quality of Life Good PROMIS-10 Physical Health Good PROMIS-10 Mental Health Good PROMIS-10 Social Activity Good PROMIS-10 Everyday Activities Moderately PROMIS-10 Pain 7 PROMIS-10 Fatigue None PROMIS-10 Social Roles Good PROMIS-10 Anxious or Depressed Rarely PROMIS PHYSICAL HEALTH SCORE 42.3 PROMIS MENTAL HEALTH SCORE 45.8 HOOS JR Scores 55.99 Problems with surgical incision/wound after surgery No Gone to ER since knee surgery No Admitted to hospital since recent ortho surgery No Additional surgery on same body part No REGGIE Grade 3 Pain in other HIP Moderate Back pain at this moment None Satisfaction with Treatment Satisfied Choose Same Treatment Again Definitely yes Orthopeadics [facility] Response 07/20/2019 HOOS JR Scores 55.99 Spine [facility] Response 07/20/2019 HOOS JR Scores 55.99 ASSESSMENT/PLAN: Mr. Castro is a 63 y.o. year old male status post bilateral total hip replacement.Doing well postoperatively. Continue weightbearing as tolerated and working on range of motion. Due to the radiographic evidence of bone loss in his femoral components as well as his startup pain, I'm concerned that at this point his femoral stems are now loose. We discussed that although not currently dangerous, there is a possibility that is the stems continue to loosen he may ultimately end up with a fracture. We discussed the use of a walking stick to minmize this risk. Previously his inflammatory markers were normal, however as it is been several years and we would like to repeat those to ruleout infection. We discussed the risks and benefits of revision surgery which would entail evaluationof the acetabular component to confirm that is not loose followed by replacement of the metal liner and then evaluation of the femoral component and likely revision to a long stem. Specifically, the risks of revision total hip arthroplasty were identified to include, but are not limited to the following: infection, bleeding with possible need for blood transfusion, nerve injury (specifically althoughrarely the femoral and sciatic nerves), problems with surgery (aseptic loosening, polyethylene wear,dislocation, periprosthetic fracture, leg length discrepancy), problems with recovery (incomplete resolution of pain, VTE, major medical complications, even the rmote possibility of ) and problemswith anesthesia. Further discussion was undertaken with the patient about the details of surgical preparation, treatment, and postoperative rehabilitation including medical clearance, the hospital course, and the postoperative rehabilitation involved. 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 He provided him with a phone number for the surgical schedulers and he will schedule these at his convenience as well as preop medical optimization and a return to clinic for a pre-op vist. All questions were answered. Signed: Juan José Gray MD 07/20/2019 Jack Garcia MD - 07/20/2019 11:00 AM EST I performed a history and physical examination of the patient and discussed the management plan withJuan José Gray MD. I also discussed the different treatment options, as well as the risks and benefits of each with the patient and questions were answered. I reviewed the note and agree with the documented findings and plan of care. ?? Dominick Castro is a 63-year-old male with bilateral modular onqkl-jg-bnywi hip replacements with DePuy Gypsum cups and Carey [employer] Nephew SL stems done via posterior approach and a simultaneous bilateral fashion [place] [address] Jonh Christensen. I previously saw him in 2016 where imaging was concerningfor a lytic bone process in the setting of negative inflammatory markers and significantly elevated metal ion levels. MRI demonstrated a fluid collection around the left hip. The right hip is essentially without imaging findings on metal reduced MRI. At the time the patient was largely asymptomatic and decided to pursue watchful waiting. Over the past several months he has been having increasing leftthigh pain and presents today for further evaluation. He reports that pain is primarily during initiation of walking and getting up from a seated position. Pain is present in the groin and the mid thigh. It typically dissipates after he has been up and going. He also has some discomfort if he has beensitting for long period of time. Clinical exam today shows a patient in no acute distress with a mildly antalgic gait favoring the left side. Leg lengths are equal and supine. Left hip range of motion is well-preserved save for restricted internal rotation. Skin over the left hip is intact. Imaging today again demonstrates significant erosive bony changes in the proximal femur in Gruen zones 1-3 6 and 7. Gruen zones 4 and 5 appear to be without lucency. There is a substantial periosteal reaction with cortical thickening around the distal stem. I do not see any substantial osteolytic proce ss around the acetabulum and any other Gruen zones. Inflammatory markers were checked again today And are reassuring with a CRP of 2.0 mg/L and an ESR of 6 both of which are stable from 3 years ago. I reviewed the imagingfindings with the patient and compared them to previous imaging. 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 I think the likelihood of an infection is low given his normal inflammatory markers. His pain that would be concerning for loosening or at least stress concentration at the distal stem. We discussed revision total hip arthroplasty with revision of his femoral stem to a modular diaphyseal fitting conical stem and conversion of his modular metal liner toa ceramic on polyethylene bearing. We discussed potential complications of this revision surgery including fracture, persistent pain or weakness, potential need for wide debridement of necrotic tissue due to metallosis, hip instability, and need for further surgery. The patient given his continuing pain is interested in pursuing revision surgery on the left side. Orders were placed today and the patient will call to schedule surgery at his convenience. Jack Lewis MD 07/20/2019 documented in this encounter Plan of Treatment Upcoming Encounters Date Type Specialty Care Team Description 07/08/2022 Office Visit Radiation Oncology Shelley Kimble APRN [facility] [address] (Wo rk) documented as of this encounter Procedures Procedure Name Priority Date/Time Associated Diagnosis Comme nts TOTAL HIP REVISION Routine 07/20/2019 1:36 PM EST ARTHROPLASTY, COMPLETE documented in this encounter Results APTT (01/11/2020 11:01 AM EDT) P athologist Signature PTT 34 25 - 37 sec [facility] Comment: The PTT is NOT appropriate for heparin m onitoring. Use the Anti-Xa level for heparin monitoring (HEP UFH) or LMWH mon itoring (HEP LMW). A PTT less than 37 seconds generally indicates adequate hem ostasis. Specimen Anatomical Collection Method Collection Time Receive d Time (Source) Location / / Volume Laterality Blood specimen 01/11/2020 11:01 0 (specimen) AM EDT 11:08 AM EDT Resulting Agency Comment Spec In Lab Jack Lewis MD HEMATOLOGY ORDERABLES Performing Organization Address City/[facility]/[place] [address] Prothrombin Time (01/11/2020 11:01 AM EDT) P athologist Signature PT 11.7 9.4 - 12.5 [facility] LABORATORY INR 1.0 [facility] Comment: An INR <2.0 indicates [...] Location / / Volume Laterality Blood specimen 01/11/2020 11:01 0 (specimen) AM EDT 11:08 AM EDT Resulting Agency Comment Spec In Lab Jack Lewis MD HEMATOLOGY ORDERABLES Performing Organization Address City/[facility]/[place] [address] (ABNORMAL) Basic Metabolic Panel (non-fasting) (01/11/2020 11:01 AM EDT) P athologist Signature Glucose Lvl 100 65 - 199 [facility] mg/dL [facility] Comment: Diabetes: >=200 mg/dL plus symp toms BUN 15 10 - 20 mg/dL [facility] Creatinine 0.70 (L) 0.80 - 1.50 mg/dL [facility] Sodium 139 135 - 145 mmol/L [facility] Potassium 3.9 3.5 - 5.0 mmol/L [facility] Comment: Please note: ??Patients with WBC >100,00 0 may have falsely elevated Potassium levels. ??For accurate Potassium quantif ication in these patients send serum separator tube (gold top) for subsequent determinations. ??Contact the Clinical Chemistry Laboratory if there are any qu estions. Chloride 102 98 - 107 mmol/L [facility] CO2 22 22 - 31 mmol/L [facility] Anion Gap 15 5 - 15 mmol/L [facility] Calcium 9.4 8.5 - 10.5 mg/dL [facility] Estimated GFR 99 >=60 mL/min/1.73 m?? [facility] Comment: The eGFR was calculated using the CKD-EP I equation. As with all creatinine based estimates of kidney function, eGFR values calculated with the CKD-EPI equation are not accurate in patients wi th acute kidney failure, extremes of body mass or the acutely ill. [email or web address] eGFR 115 >=60 mL/min/1.73 m?? [facility] Comment: The eGFR was calculated using the CKD-EP I equation. As with all creatinine based estimates of kidney function, eGFR values calculated with the CKD-EPI equation are not accurate in patients wi th acute kidney failure, extremes of body mass or the acutely ill. [email or web address] Specimen Anatomical Collection Method Collection Time Receive d Time (Source) Location / / Volume Laterality Blood specimen 01/11/2020 11:01 0 (specimen) AM EDT 11:08 AM EDT Resulting Agency Comment Spec In Lab Jack Lewis MD CHEMISTRY ORDERABLES Performing Organization Address City/[facility]/ZIP Code Phon e Number [address] CRP, acute inflammation (07/20/2019 11:47 AM EST) P athologist Signature CRP 2.0 <=4.9 mg/L [facility] Specimen Anatomical Collection Method Collection Time Receive d Time (Source) Location / / Volume Laterality Blood specimen 07/20/2019 11:47 9 (specimen) AM EST 12:16 PM EST Resulting Agency Comment Spec In Lab Juan José Gray MD CHEMISTRY ORDERABLES Performing Organization Address City/[facility]/[place] [address] Sedimentation rate (07/20/2019 11:47 AM EST) P athologist Signature Sed Rate 6 0 - 15 [facility] mm/hr [facility] Specimen Anatomical Collection Method Collection Time Receive d Time (Source) Location / / Volume Laterality Blood specimen 07/20/2019 11:47 9 (specimen) AM EST 12:16 PM EST Resulting Agency Comment Spec In Lab Juan José Gray MD HEMATOLOGY ORDERABLES Performing Organization Address City/State/[place] [address] documented in this encounter Visit Diagnoses Diagnosis Hip pain, bilateral Pain in joint, pelvic region and thigh History of total hip arthroplasty, bilat eral documented in this encounter Care Teams Senior Capital Markets Specialist Relationship Specialty Start Date End Date None PCP - General 07/20/19 01/11/20 None documented as of this encounter
--- OUTSIDE RECORDS SUMMARY | 2022-07-01 13:48 | XMS_ITS | Encounter Summary ---
:1955 Author Organization [facility] [place] [address] Care Team Providers Name Role Phone Maldonado Ibarra MD Primary Care Provider Reason for Visit Reason Comments [facility] Encounter Details Date Type Department Care Team Description 09/09/2016 Office Visit Orthopaedics at [facility] Jack Lewis, Hip pain, left; [facility] Hip pain, right; [facility] History of total hip arthrop lasty, bilateral, 2007, [place] [address] ORTHOPAEDIC SURG [place], [place] [address] (Wo rk) Social History Tobacco [...] Sign Reading Time Taken Comments Blood Pressure 169/99 09/09/2016 9:20 AM EST Pulse 71 09/09/2016 9:20 AM EST Temperature - - Respiratory Rate - - Oxygen Saturation - - Inhaled Oxygen Concentration - - Weight 93.9 kg (207 lb) 09/09/2016 9:20 AM EST Height 180.3 cm (5' 11) 09/09/2016 9:20 AM EST Body Mass Index 28.87 09/09/2016 9:20 AM EST documented in this encounter Progress Notes Jack Lewis MD - 09/09/2016 9:30 AM EST Images from the original note were not included. Department of Orthopaedics Division of Adult Joint Reconstructive Surgery ARTHROPLASTY HISTORY/PREVIOUS HIP SURGERY: 1. 07/31/2008 Bilateral total hip arthroplasty Dr. Christensen using Carey and nephew SL-Plus stems and bilateral [place] acetabular components with Ultamet liners. Subjective: Dominick Castro is a 60 y.o. male who presents with bilateral hip and leg pain. He has not been seenin follow-up for his bilateral arthroplasty since 2010. He reports over the last year to use been having increasing proximal thigh pain which is most pronounced when he has a double clutch such as after a trip and catch. He notices pain in both hips approximately 5-6 cm distal to the groin crease. Pain is not worse when caring a heavy load even up to 50-60 pounds. He also has some lateral thigh pain around the proximal greater trochanter that is usually worst when he rolls over or twists and pivots.He does not have any pain or discomfort when seated. He is able to walk unlimited distance without pain. 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 He is also currently being evaluated for a rotator cuff tear in the upper extremity clinic here at . He has not noticed any other changes in his health recently such as fevers, chills, cough, or colds. He has not had any increasing confusion or other cognitive complaints. Prior to the onset of the symptoms he had no issues with his hips. Both surgeries were uncomplicated and done on the same day. He went immediately home from the hospital and was mobilizing without assistive devices within a week after surgery. REVIEW OF SYSTEMS: Dominick denies fevers, chills, night sweats, nausea, or vomiting. His review of systems is otherwise negative ??14 systems reviewed except as noted in the history of present illness. He does not endorse a history of DVT/PE or clotting disorder. QUESTIONNAIRE RESPONSES: General Health, Prior Treatments, PreExisting Condition, Health Habits, About You 09/09/2016 PROMIS-10 General Health Good PROMIS-10 Quality of Life Good PROMIS-10 Physical Health Good PROMIS-10 Mental Health Good PROMIS-10 Social Activity Good PROMIS-10 Everyday Activities Moderately PROMIS-10 Pain 3 PROMIS-10 Fatigue None PROMIS-10 Social Roles Very Good PROMIS-10 Anxious or Depressed Rarely PROMIS PHYSICAL SCORE (range 16-68) 47.7 PROMIS MENTAL SCORE (range 21-68) 45.8 HOOS JR Scores 61.82 REGGIE Grade 7 [facility] Response 09/09/2016 HOOS JR Scores 61.82 Spine [facility] Response 09/09/2016 HOOS JR Scores 61.82 Family history: Negative for rheumatoid arthritis or gout. ALLERGIES No Known Allergies Allergies to metals: None. SOCIAL HISTORY: reports that he has never smoked. He has never used smokeless tobacco. He reports that he drinks alcohol. He reports that he does not use illicit drugs. 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 Rotator cuff tear M75.100 ??? Migraines G43.909 ??? History of total hip arthroplasty Z96.649 Objective: BP (!) 169/99 Pulse 71 Ht 180.3 cm (5' 11) Wt 93.9 kg (207 lb) BMI 28.87 kg/m2 General : alert, appears stated age and cooperative Gait: Normal. The patient can bear weight on the injured extremity. I have made the following determinations: Hip Exam: Left Prior surgery on this joint:Yes Leg Length: Longer leg: equal Limb Length discrepancy: 0cm Motion: Flexion contracture: 0 Total degrees of Flexion: 100 Total degrees of Abduction: 40 Total degrees of Ext Rotation: 20 Total degrees of Internal Rotation: 5 Gait Abnormality: Normal Radiographic evidence of joint damage: [0= normal; 1=minimal ; 2= some osteophytes , some narrowing ; 3= moderate osteophytes, significant narrowing, mild deformity; 4= large osteophytes, marked narrowing, obvious deformity]: See below Skin Integrity: Normal Pulses Palpable: Left PT: Yes Left DP: Yes Motor/Sensory: Left Distal Motor: Normal Distal Sensory: Normal Hip Abductors: 5 Trendelenburg test: Negative I have made the following determinations: Hip Exam: Right Prior surgery on this joint: Yes Leg length: Longer leg: equal Limb Length discrepancy: 0cm Motion: Flexion contracture: 0 Total degrees of Flexion:100 Total degrees of Abduction:40 Total degrees of Ext Rotation: 10 Total degrees of Internal Rotation: 5 Gait Abnormality: Normal Radiographic evidence of joint damage: [0= normal; 1=minimal ; 2= some osteophytes , some narrowing ; 3= moderate osteophytes, significant narrowing, mild deformity; 4= large osteophytes, marked narrowing, obvious deformity]: See below Skin Integrity: Normal Pulses Palpable: Right PT: Yes Right DP:Yes Motor/Sensory: Right Distal Motor: Normal Distal Sensory: Normal Hip Abductors: 5 Trendelenburg test: negative Imaging: X-rays of the AP pelvis and bilateral AP and lateral hips were reviewed today. These are compared imaging from 2011. The acetabular femoral components appear to be in well-maintained position with no interval changes. There is however the development of significant osteolytic scalloping around the proximal femoral components down to approximately the junction of the middle and distal third of the implant. There is a moderate cortical reaction present on the left hip. No other changes noted. Assessment: Mr. Castro is a 60 y.o. year old male with bilateral total hip replacements with dkouz-ts-eloov articulations ever done in 2007. He has not had x-rays or possibly 5 years and new images taken today demonstrate significant cortical scalloping around the proximal femoral stems. I believe that his thighpain is likely due to modulus mismatch between the stem and remaining femoral bone. I think it is necessary to rule out loosening of the femoral stem with a bone scan as well as rule out infection without inflammatory markers. I do think that my primary concern is for metal sensitivity reaction with ALVAL. Plan: At this point I will order blood work including inflammatory markers and cobalt and chromium levels.I will also order a bone scan. If the inflammatory markers are elevated he would require an aspiration of the joint. I like to see him back in clinic after the bone scan has been done for further discussion of next us. I had a long discussion with him today regarding potential planning. I do think that his thigh pain is due to the proximal cortical bone loss. In the event that his inflammatory and metal ion levels are elevated but the bone scan does not demonstrate any significant potential loosening of think it would be reasonable to try head and liner exchange with bone grafting of his proximal femur. It appears that the either the stems are loose then femoral stem revision along with liner exchange should be recommended. I'll see him back after his blood work and bone scan has been completed. Jack Lewis MD documented in this encounter Plan of Treatment Upcoming Encounters Date Type Specialty Care Team Description 07/08/2022 Office Visit Radiation Oncology Lamin Shelley Terry, WARP SCOURING VAT TENDER [facility] RADIATION ONCWARNER [place], [place] [address] (Wo rk) documented as of this encounter Procedures Procedure Name Priority Date/Time Associated Comments Diagnosis COBALT LVL Routine 09/09/2016 10:02 Hip pain, left Results for this AM EST Hip pain, right procedure are in History of total the results hip arthroplasty, section. bilateral, 2007Dr. Christensen HEMOGRAM STAT 09/09/2016 10:02 Hip pain, left Results for this AM EST Hip pain, right procedure are in History of total the results hip arthroplasty, section. bilateral, 2007Dr. Christensen DIFFERENTIAL, STAT 09/09/2016 10:02 Hip pain, left Results for this AUTOMATED AM EST Hip pain, right procedure are in History of total the results hip arthroplasty, section. bilateral 2007Dr. Christensen CHROMIUM LEVEL Routine 09/09/2016 10:02 Hip pain, left Results for this AM EST Hip pain, right procedure are in History of total the results hip arthroplasty, section. bilateral, 2007Dr. Christensen SEDIMENTATION RATE STAT 09/09/2016 10:02 Hip pain, le ft Results for this AM EST Hip pain, right procedure are in History of total the results hip arthroplasty, section. bilateral, 2007Dr. Christensen CBC (WITH DIFF) STAT 09/09/2016 10:02 Hip pain, left AM EST Hip pain, right History of total hip arthroplasty, bilateral, 2007Dr. Christensen CRP, CARDIAC RISK (HS STAT 09/09/2016 10:02 Hip pain, left Results for this CRP) AM EST Hip pain, right procedure are in History of total the results hip arthroplasty, section. bilateral 2007Dr. Christensen documented in this encounter Results Differential, Automated (09/09/2016 10:02 AM EST) athologist Signature Neutrophils % 47.2 % [facility] Neutr Abs (ANC) 2.88 1.70 - [facility] 6.10 [facility] x10(3)/[facility] LABORATORY Lymphocytes % 41.9 % [facility] Lymphocytes Abs 2.6 0.9 - 3.2 [facility] x10(3)/[facility] LABORATORY Monocytes % 9.0 % [facility] Monocyte Abs 0.6 0.3 - 0.9 [facility] x10(3)/[facility] LABORATORY Eosinophils % 0.7 % [facility] Eosinophils Abs 0.0 0.0 - 0.4 [facility] x10(3)/[facility] LABORATORY Basophils % 0.7 % [facility] Basophils Abs 0.0 0.0 - 0.1 [facility] x10(3)/[facility] LABORATORY Immature Gran % 0.50 % [facility] Comment: Immature granulocytes(IG's)percentage an d absolute count will include metamyelocytes, myelocytes, and promyelo cytes. Blood smears from CBCs yielding IG's will be scanned manually for concor dance. If this scan disagrees with the automated IG or if promyelocytes are not ed, a manual differential will be performed. Sarai Gran Abs 0.03 0.00 - 0.04 x10(3)/[facility] LABORATORY Specimen Anatomical Collection Method Collection Time Receive d Time (Source) Location / / Volume Laterality Blood specimen 09/09/2016 10:02 6 (specimen) AM EST 10:04 AM EST Resulting Agency Comment Spec In Lab Jack Lewis MD HEMATOLOGY ORDERABLES Performing Organization Address City/State/[place] [address] Hemogram (09/09/2016 10:02 AM EST) athologist Signature WBC 6.1 4.0 - 9.5 [facility] x10(3)/[facility] LABORATORY RBC 5.12 4.58 - [facility] 5.54 [facility] x10(6)/[facility] LABORATORY Hemoglobin 15.9 13.7 - [facility] 16.5 gm/dL [facility] Hematocrit 45.4 40.5 - [facility] 48[facility] % [facility] MCV 88.7 82.9 - [facility] 93.1 [facility] LABORATORY MCH 31.1 27.5 - [facility] 32.1 pg [facility] MCHC 35.0 32.0 - [facility] 35.7 gm/dL [facility] Platelets 213 145 - 357 [facility] x10(3)/[facility] LABORATORY RDWSD 42.2 36.0 - [facility] 45.0 [facility] RDWCV 12.9 11.4 - [facility] 13.8 % [facility] MPV 11.4 7.6 - 12.9 [facility] LABORATORY nRBC % Auto 0.0 % [facility] nRBC Abs Auto 0.000 0.000 - [facility] 0.000 [facility] x10(3)/[facility] LABORATORY Specimen Anatomical Collection Method Collection Time Receive d Time (Source) Location / / Volume Laterality Blood specimen 09/09/2016 10:02 6 (specimen) AM EST 10:04 AM EST Resulting Agency Comment Spec In Lab Jack Lewis MD HEMATOLOGY ORDERABLES Performing Organization Address City/State/[place] [address] (ABNORMAL) Chromium level (09/09/2016 10:02 AM EST) P athologist Signature Chromium 1.7 (H) <0.3 ng/mL [facility] Comment: ADDITIONAL INFORMATIO N This test was developed and its performa nce characteristics determined by [facility] in a manner co nsistent with CLIA requirements. This test has not been fei ared or approved by the U.S. Food and Drug Administration. Test Performed by: [facility] [address] [place] [id number] [employer] Supervisor: Ramy Peter II, M.D., Ph.D. Specimen Anatomical Collection Method Collection Time Receive d Time (Source) Location / / Volume Laterality Blood specimen 09/09/2016 10:02 6 (specimen) AM EST 11:39 AM EST Resulting Agency Comment Spec In Lab Jack Lewis MD CHEMISTRY ORDERABLES Performing Organization Address City/[facility]/ZIP Code Phon e Number [address] (ABNORMAL) [place] Lvl (09/09/2016 10:02 AM EST) P athologist Signature [place] Lvl 5.6 (H) ng/mL [facility] Comment: REFERENCE VALUE------ 0.0-0.9 <10 (MoM implant) ADDITIONAL INFORMATIO N This test was developed and its performa nce characteristics determined by [facility] in a manner co nsistent with CLIA requirements. This test has not been fei ared or approved by the U.S. Food and Drug Administration. Test Performed by: [facility] [address] [place] [id number] [employer] Supervisor: Ramy Peter II, M.D., Ph.D. Specimen Anatomical Collection Method Collection Time Receive d Time (Source) Location / / Volume Laterality Blood specimen 09/09/2016 10:02 6 (specimen) AM EST 11:39 AM EST Resulting Agency Comment Spec In Lab Jack Lewis MD CHEMISTRY ORDERABLES Performing Organization Address City/[facility]/[place]IP [place] [address] Sedimentation rate (09/09/2016 10:02 AM EST) P athologist Signature Sed Rate 7 0 - 15 [facility] mm/hr [facility] Specimen Anatomical Collection Method Collection Time Receive d Time (Source) Location / / Volume Laterality Blood specimen 09/09/2016 10:02 6 (specimen) AM EST 10:04 AM EST Resulting Agency Comment Spec In Lab Jack Lewis MD HEMATOLOGY ORDERABLES Performing Organization Address City/State/[place] [address] CRP, cardiac risk (HS CRP) (09/09/2016 10:02 AM EST) athologist Signature CRP High Sens 2.0 mg/L [facility] Comment: For cardiac risk assessment, two values (fasting or nonfasting sample acceptable) taken at least 2 weeks apart , should be averaged to provide a more reliable estimate of marker level. This laboratory will be using the recomm endations from the AHA/CDC Scientific Statement for interpretations of future risks of cardiovascular events: ?<1.0 mg/L: low risk ?1.0 to 3.0 mg/L: moderate ri sk ?>3.0 mg/L: high ris k ?>10.0 mg/L: Acute I nflammation Note: CRP values >10 mg/L indicate an ac walk[place] river inflammatory condition or infection. The >10 mg/L value should not be used for cardiac risk assessment and a repeat specimen should be collecte d at least two weeks after resolution of the acute inflammatory condition. References: 1. Nya JOSE et. al. ??AHA/CDC Scientif ic Statement: Markers of Inflammation and Cardiovascular Disease. ??Circulation 2003; 107:499-511 2. Jerardo PM. ??Clinical applications of C-reactive protein for cardiovascular disease detection and pre vention. ??Circulation 2003; 107:363-369 CRP Cardiac Risk Moderate Risk [facility] Specimen Anatomical Collection Method Collection Time Receive d Time (Source) Location / / Volume Laterality Blood specimen 09/09/2016 10:02 6 (specimen) AM EST 10:04 AM EST Resulting Agency Comment Spec In Lab Jack Lewis MD CHEMISTRY ORDERABLES Performing Organization Address City/State/ZIP Code Phon e Number [place] [phone] documented in this encounter Visit Diagnoses Diagnosis Hip pain, left Pain in joint, pelvic region and thigh Hip pain, right Pain in joint, pelvic region and thigh History of total hip arthroplasty, eric ramírez, 2007, Dr. Christensen documented in this encounter Care Teams Internal Control Analyst Relationship Specialty Start Date End Date Maldonado Ibarra MD PCP - General 08/06/10 07/23/17 [address] [place] [address] documented as of this encounter
--- OUTSIDE RECORDS SUMMARY | 2022-07-01 13:48 | XMS_ITS | Encounter Summary ---
:1955 Author Organization [facility] [place] [address] Care Team Providers Name Role Phone Nestor Quiroga MD Primary Care Provider Encounter Details Date Type Department Care Team Description 08/13/2017 Telephone Orthopaedics at [facility] Jack Lewis MD [facility] [place] [phone] ORTHOPAEDIC SURGERY [phone] [place] [id number] (Wo rk) Social History Tobacco Use Types [...] this encounter Miscellaneous Notes Telephone Encounter - Jack Lewis MD - 08/13/2017 11:48 AM EST Date of encounter: 08/13/2017 I spoke with Dominick Castro regarding the results of his bilateral hip MRIs. Briefly, Mr. Castro underwent bilateral total hip arthroplasty with Dr. Carlito Christensen on 07/31/2008. His hip reconstruction was done using a Carey [employer] Nephew SL+ stem with a DePuy Brandon 100 series size 58 cup and a rfeym-je-kozej ultamet cobalt chrome liner with a 40 mm +5 head. His postoperative course was uncomplicated.He presented to my clinic last August with vague complaints of bilateral thigh pain and x-rays demonstrated significant osteolysis around the proximal femoral stems bilaterally. No apparent osteolysis is present in the acetabular side. Metal ion levels were checked which are concerning for a cobalt level of 5.6 and a chromium level of 1.7. Inflammatory markers were otherwise normal. He finally underwent MRI of bilateral hips looking for soft tissue adverse reaction or ALVAL/pseudotumor last month.On the right there does not appear to be any significant effusion or pseudotumor formation. On the left side there is a visible joint effusion around the left hip joint. There does not appear to be anyinflammation in the abductors or soft tissues around the hip joint itself. Speaking to on the phone today he continues to have some vague discomfort which is worse on the leftside. Pain is primarily in the groin and proximal thigh. He does not specifically endorse start up pain or pain that is worse with carrying a load. He describes it as a tuning fork sensation. I reviewed with him his x-rays from last July demonstrating proximal femoral bone loss, his elevated metal ion levels, his normal inflammatory markers, and the presence of his rqlhu-ad-yfzis hip arthroplasty bearing. At this point I think the prudent course of action due to his symptoms and the presence of an effusion on MRI would be to proceed with revision of his left hip first with conversion of his rggmh-md-cakub articulation to a highly cross-linked polyethylene liner with a ceramic head. We would test the stability of the femoral stem and if the stem was well fixed we would leave it unlikely bone graft the proximal femur. If the femoral stem was loose we would revise it to a reclaim. I reviewed that I do not think that his recovery would necessarily be particularly lengthy especially for able to retain the ingrown prosthesis. My expectation would be that he would be other drive again within a month after the surgery. Barring any unforeseen fracture we would let him bear full weight with posterior hip precautions. Again the primary risk of most revision hip surgery with retained implants would be instability. He is going to consider his options and will call if he would like to schedule surgery to proceed with revision of his left total hip arthroplasty. documented in this encounter Plan of Treatment Upcoming Encounters Date Type Specialty Care Team Description 07/08/2022 Office Visit Radiation Oncology Shelley Kimble, SURVEILLANCE CAMERA TECHNICIAN [facility] RADIATION ONCWARNER [place], [place] [address] (Wo rk) documented as of this encounter Visit Diagnoses Diagnosis History of total hip arthroplasty, bilat eral documented in this encounter Care Teams Senior Product Development Manager Relationship Specialty Start Date End Date Nestor Quiroga MD PCP - General Family Medicine 07/24/17 08/24/18 [address] [place] [address] documented as of this encounter
--- OUTSIDE RECORDS SUMMARY | 2022-07-01 13:48 | XMS_ITS | Encounter Summary ---
:1955 Author Organization [facility] [address] Care Team Providers Name Role Phone None [...] Expiration Date Visits Requ ested Visits Authorized [id number] 1 1 Encounter Details Date Type Department Care Team Description 01/11/2020 Laboratory Appointment Lab 3L [place] Hip pain, bilateral; [facility] History of total hip arthrop lasty, [place] [id number] Social History Tobacco Use Types Packs/Day Years [...] Office Visit Radiation Oncology Shelley Kimble, [facility] RADIATION ONCWARNER [place], [place] [address] (Wo rk) documented as of this encounter Procedures Procedure Name Priority Date/Time Associated Comments Diagnosis ABORH RECHECK STATUS Routine 01/11/2020 11:01 Res ults for this AM EDT procedure are i n the results section. HEMOGRAM Routine 01/11/2020 11:01 Hip pain, Results for this AM EDT bilateral procedure are in History of total the results hip arthroplasty, section. bilateral DIFFERENTIAL, AUTOMATED Routine 01/11/2020 11:01 Hip pain, Results for this AM EDT bilateral procedure are in History of total the results hip arthroplasty, section. bilateral HC VENIPUNCTURE Routine 01/11/2020 11:01 Hip pain, AM EDT bilateral History of total hip arthroplasty, bilateral ABO/RH TYPING Routine 01/11/2020 11:01 Hip pain, Results fo r this AM EDT bilateral procedure are in History of total the results hip arthroplasty, section. bilateral HC PARTIAL Routine 01/11/2020 11:01 Hip pain, Results for this THROMBOPLASTIN TIME AM EDT bilateral procedure are in History of total the results hip arthroplasty, section. bilateral HC PROTHROMBIN TIME Routine 01/11/2020 11:01 Hip pain, Resu lts for this AM EDT bilateral procedure are in History of total the results hip arthroplasty, section. bilateral HC CBC,PLT & AUTO DIFF Routine 01/11/2020 11:01 Hip pain, AM EDT bilateral History of total hip arthroplasty, bilateral ANTIBODY SCREEN Routine 01/11/2020 11:01 Hip pain, Results for this AM EDT bilateral procedure are in History of total the results hip arthroplasty, section. bilateral BASIC METABOLIC PANEL Routine 01/11/2020 11:01 Hip pain, Re sults for this (NON-FASTING) AM EDT bilateral procedure are in History of total the results hip arthroplasty, section. bilateral documented in this encounter Results ABORH Recheck Status (01/11/2020 11:01 AM EDT) [facility] Method Time Signature ABORH Type Completed [facility] LABORATORY Specimen Anatomical Collection Method Collection Time Receive d Time (Source) Location / / Volume Laterality Blood specimen 01/11/2020 11:01 0 (specimen) AM EDT 11:06 AM EDT Resulting Agency Comment Spec In Lab Jack Lewis MD BLOOD BANK ORDERABLES Performing Organization Address City/State/ZIP Code Phon e Number [address] Differential, Automated (01/11/2020 11:01 AM EDT) P athologist Signature Neutrophils % 52.4 % [facility] LABORATORY Neutr Abs (ANC) 3.03 1.70 - [facility] 6.10 [facility] x10(3)/[facility] LABORATORY Lymphocytes % 36.7 % [facility] LABORATORY Lymphocytes Abs 2.1 0.9 - 3.2 [facility] x10(3)/[facility] LABORATORY Monocytes % 9.0 % [facility] LABORATORY Monocyte Abs 0.5 0.3 - 0.9 [facility] x10(3)/[facility] LABORATORY Eosinophils % 0.9 % [facility] LABORATORY Eosinophils Abs 0.0 0.0 - 0.4 [facility] x10(3)/[facility] LABORATORY Basophils % 0.5 % [facility] LABORATORY Basophils Abs 0.0 0.0 - 0.1 [facility] x10(3)/[facility] LABORATORY Immature Gran % 0.50 % [facility] LABORATORY Comment: Immature granulocytes(IG's)percentage an d absolute count will include metamyelocytes, myelocytes, and promyelo cytes. Blood smears from CBCs yielding IG's will be scanned manually for concor dance. If this scan disagrees with the automated IG or if promyelocytes are not ed, a manual differential will be performed. Sarai Gran Abs 0.03 0.00 - 0.04 x10(3)/[facility] LABORATORY Specimen Anatomical Collection Method Collection Time Receive d Time (Source) Location / / Volume Laterality Blood specimen 01/11/2020 11:01 0 (specimen) AM EDT 11:08 AM EDT Resulting Agency Comment Spec In Lab Jack Lewis MD HEMATOLOGY ORDERABLES Performing Organization Address City/State/ZIP Code Phon e Number [address] Hemogram (01/11/2020 11:01 AM EDT) P athologist Signature WBC 5.8 4.0 - 9.5 [facility] x10(3)/[facility] LABORATORY RBC 5.14 4.58 - [facility] 5.54 [facility] x10(6)/[facility] LABORATORY Hemoglobin 15.6 13.7 - [facility] 16.5 gm/dL [facility] LABORATORY Hematocrit 46.4 40.5 - [facility] 48.5 % [facility] LABORATORY MCV 90.3 82.9 - [facility] 93.1 [facility] LABORATORY MCH 30.4 27.5 - [facility] 32.1 pg [facility] LABORATORY MCHC 33.6 32.0 - [facility] 35.7 gm/dL [facility] LABORATORY Platelets 198 145 - 357 [facility] x10(3)/[facility] LABORATORY RDWSD 42.1 36.0 - [facility] 45.0 [facility] LABORATORY RDWCV 12.8 11.4 - [facility] 13.8 % [facility] LABORATORY MPV 12.8 7.6 - 12.9 [facility] LABORATORY nRBC % Auto 0.0 % [facility] LABORATORY nRBC Abs Auto 0.000 0.000 - [facility] 0.000 [facility] x10(3)/[facility] LABORATORY Specimen Anatomical Collection Method Collection Time Receive d Time (Source) Location / / Volume Laterality Blood specimen 01/11/2020 11:01 0 (specimen) AM EDT 11:08 AM EDT Resulting Agency Comment Spec In Lab Jack Lewis MD HEMATOLOGY ORDERABLES Performing Organization Address City/State/[place] [address] Antibody screen (01/11/2020 11:01 AM EDT) Patholo gist Method Time Signature Ab Screen Negative [facility] LABORATORY Expires at 01/14/2020 PA ROBERT 1550 on: [facility] LABORATORY Specimen Anatomical Collection Method Collection Time Receive d Time (Source) Location / / Volume Laterality Blood specimen 01/11/2020 11:01 0 (specimen) AM EDT 11:06 AM EDT Resulting Agency Comment Spec In Lab Jack Lewis MD BLOOD BANK ORDERABLES Performing Organization Address City/State/ZIP Code Phon e Number [address] ABO/Rh Typing (01/11/2020 11:01 AM EDT) athologist Signature ABORh Type O Pos [facility] LABORATORY Specimen Anatomical Collection Method Collection Time Receive d Time (Source) Location / / Volume Laterality Blood specimen 01/11/2020 11:01 0 (specimen) AM EDT 11:06 AM EDT Resulting Agency Comment Spec In Lab Jack Lewis MD BLOOD BANK ORDERABLES Performing Organization Address City/[facility]/[place] [address] (ABNORMAL) Basic Metabolic Panel (non-fasting) (01/11/2020 11:01 AM EDT) athologist Signature Glucose Lvl 100 65 - 199 [facility] mg/dL [facility] LABORATORY Comment: Diabetes: >=200 mg/dL plus symp toms BUN 15 10 - 20 mg/dL [facility] LABORATORY Creatinine 0.70 (L) 0.80 - 1.50 mg/dL [facility] LABORATORY Sodium 139 135 - 145 mmol/L [facility] LABORATORY Potassium 3.9 3.5 - 5.0 mmol/L [facility] LABORATORY Comment: Please note: ??Patients with WBC >100,00 0 may have falsely elevated Potassium levels. ??For accurate Potassium quantif ication in these patients send serum separator tube (gold top) for subsequent determinations. ??Contact the Clinical Chemistry Laboratory if there are any qu estions. Chloride 102 98 - 107 mmol/L [facility] LABORATORY CO2 22 22 - 31 mmol/L [facility] LABORATORY Anion Gap 15 5 - 15 mmol/L [facility] LABORATORY Calcium 9.4 8.5 - 10.5 mg/dL [facility] LABORATORY Estimated GFR 99 >=60 mL/min/1.73 m?? [facility] LABORATORY Comment: The eGFR was calculated using the CKD-EP I equation. As with all creatinine based estimates of kidney function, eGFR values calculated with the CKD-EPI equation are not accurate in patients wi th acute kidney failure, extremes of body mass or the acutely ill. [email or web address]/[facility] eGFR 115 >=60 mL/min/1.73 m?? [facility] LABORATORY Comment: The eGFR was calculated using the CKD-EP I equation. As with all creatinine based estimates of kidney function, eGFR values calculated with the CKD-EPI equation are not accurate in patients wi th acute kidney failure, extremes of body mass or the acutely ill. [email or web address]/[facility] Specimen Anatomical Collection Method Collection Time Receive d Time (Source) Location / / Volume Laterality Blood specimen 01/11/2020 11:01 0 (specimen) AM EDT 11:08 AM EDT Resulting Agency Comment Spec In Lab Jack Lewis MD CHEMISTRY ORDERABLES Performing Organization Address City/State/[place] [address] Prothrombin Time (01/11/2020 11:01 AM EDT) athologist Signature PT 11.7 9.4 - 12.5 [facility] LABORATORY INR 1.0 [facility] LABORATORY Comment: An INR <2.0 indicates [...] Organization Address City/State/ZIP Code Phon e Number [facility] [place] [address] APTT (01/11/2020 11:01 AM EDT) P athologist Signature PTT 34 25 - 37 sec [facility] LABORATORY Comment: The PTT is NOT [...] Organization Address City/State/[place] [address] documented in this encounter Visit Diagnoses Diagnosis Hip pain, bilateral Pain in joint, pelvic region and thigh History of total hip arthroplasty, bilat eral documented in this encounter Care Teams Statistical Developer Relationship Specialty Start Date End Date None PCP - General 07/20/19 01/11/20 None documented as of this encounter
--- OUTSIDE RECORDS SUMMARY | 2022-07-01 13:48 | XMS_ITS | Encounter Summary ---
:1955 Author Organization [facility] [place] [address] Care Team Providers Name Role Phone Maldonado Ibarra MD Primary Care Provider Encounter Details Date Type Department Care Team Description 10/29/2010 Follow-Up Orthopaedics at [facility] Venkata Camilo [place] [address] ORTHOPAEDIC SURGERY [phone] [place], [place] [address] (Wo rk) Social History Tobacco [...] Office Visit Radiation Oncology Shelley Kimble APRN [facility] RADIATION ONCWARNER [place], [place] [address] (Wo rk) documented as of this encounter Visit Diagnoses Not on filedocumented in this encounter Care Teams Furniture Installer Relationship Specialty Start Date End Date Maldonado Ibarra MD PCP - General 08/06/10 07/23/17 [address] [place] [address] documented as of this encounter
--- OUTSIDE RECORDS SUMMARY | 2022-07-01 13:48 | XMS_ITS | Encounter Summary ---
:1955 Author Organization [facility] [place] [address] Care Team Providers Name Role Phone Maldonado Ibarra MD Primary Care Provider Reason for Referral Diagnostic Test (Routine) - Closed Specialty Diagnoses / Procedures Referred By Contact Refer red To Contact Radiology Diagnoses Hip pain, right Jack Lewis MD [facility] Rad Mri Procedures MRI Hip wo Contrast Right (Generic) [facility] [place] [address] [place] [address] Referral ID Status Reason Start Date Expiration Date Visits V isits Requested Authorized [id number] Closed Specialty 09/25/2016 09/25/2017 1 1 Service Requested Diagnostic Test (Routine) - Specialty Diagnoses / Procedures Referred By Contact Refer red To Contact Radiology Diagnoses Hip pain, left Jack Lewis MD [facility] Rad Mri Procedures MRI Hip wo Contrast Left (Generic) [facility] [place] [address] [place] [address] Referral ID Status Reason Start Date Expiration Visits Visits Date Requested Authorized [id number] Specialty 09/25/2016 09/25/2017 1 1 Service Requested Encounter Details Date Type Department Care Team Description 09/25/2016 Orders Only Orthopaedics at [facility] Jack Lewis, Hip pain, left; [facility] Hip pain, right; [facility] History of total [place], [place] [phone] ORTHOPAEDIC SURG [place]ER[place] FRIAS [place] [address] (Wo rk) Social History Tobacco Use [...] Oncology Shelley Kimble APRN [facility] RADIATION ONCOLO [place] [address] (Wo rk) documented as of this encounter Results MRI Hip wo Contrast Right (Generic) (07/24/2017 5:44 PM EST) Anatomical Region Laterality Modality Hip Right Magnetic Resonance Specimen (Source) Anatomical Location Collection Method / Collectio n Time Received Time / Laterality Volume Impressions 07/27/2017 11:26 AM EST 1. 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 2. ??Loculated left hip joint effusion c oncerning for pseudotumor. If clinically indicated, correlation with fluid sampli ng could be obtained. I have personally reviewed the image(s) and the residents interpretation and agree with the findings, JAMIE ROBIN at 11:26 AM Narrative 07/27/2017 11:26 AM EST EXAMINATION: MRI HIP WO CONTRAST RIGHT (GENERIC), MRI HIP WO CONTRAST LEFT (GENERIC) CLINICAL HISTORY: [id number] hip art hroplasties with pain; assess for pseudotumor TECHNIQUE: MRI of the right hip and left hip was pe rformed without intravenous contrast including T2-weighted and STIR sequences in 3 planes. 3 sequences include the entirety of the pelvis COMPARISON: MRI of the left hip dated 07/24/2017. Ra diographs of the right hip dated 09/09/2016 10/29/2010, 10/23/2009, 9, 10/30/2007, 07/31/2008, 07/05/2008, 06/17/2007. FINDINGS: There are bilateral total hip arthroplas ties. 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 There is a left hip joint effusion with a loculated fluid extending superiorly away from the hip j oint. This is concerning for pseudotumor. If clinically indicated, co rrelation with fluid sampling could be obtained. No other fluid collection or s oft tissue mass seen. No evidence of fracture. No dislocation. No muscle edema. No tendon tear. There is degenerative disc disease and d egenerative facet arthropathy of the partly imaged lower lumbar spine, most p ronounced at L5/S1. There is extensive sigmoid diverticulosis. The prostate pro trudes into the urinary bladder base, and there is diffuse mild urinary bladde r wall thickening that could reflect chronic urinary bladder outlet obstructi on. Procedure Note Jamie Robin MD - 07/27/2017Formatting o f this note might be different from the original. EXAMINATION: MRI HIP WO CONTRAST RIGHT ( GENERIC), MRI HIP WO CONTRAST LEFT (GENERIC) CLINICAL HISTORY: [id number] hip art hroplasties with pain; assess for pseudotumor TECHNIQUE: MRI of the right hip and left hip was pe rformed without intravenous contrast including T2-weighted and STIR sequences in 3 planes. 3 sequences include the entirety of the pelvis COMPARISON: MRI of the left hip dated 07/24/2017. Ra diographs of the right hip dated 09/09/2016 10/29/2010, 10/23/2009, 9, 10/30/2007, 07/31/2008, 07/05/2008, 06/17/2007. FINDINGS: There are bilateral total hip arthroplas ties. 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 There is a left hip joint effusion with a loculated fluid extending superiorly away from the hip j oint. This is concerning for pseudotumor. If clinically indicated, co rrelation with fluid sampling could be obtained. No other fluid collection or s oft tissue mass seen. No evidence of fracture. No dislocation. No muscle edema. No tendon tear. There is degenerative disc disease and d egenerative facet arthropathy of the partly imaged lower lumbar spine, most p ronounced at L5/S1. There is extensive sigmoid diverticulosis. The prostate pro trudes into the urinary bladder base, and there is diffuse mild urinary bladde r wall thickening that could reflect chronic urinary bladder outlet obstructi on. IMPRESSION 1. 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 2. Loculated left hip joint effusion con cerning for pseudotumor. If clinically indicated, correlation with fluid sampli ng could be obtained. I have personally reviewed the image(s) and the residents interpretation and agree with the findings, JAMIE ROBIN at 11:26 AM Jack Lewis MD IMG MRI ORDERABLES MRI Hip wo Contrast Left (Generic) (07/24/2017 5:44 PM EST) Anatomical Region Laterality Modality Hip Left Magnetic Resonance Specimen (Source) Anatomical Location Collection Method / Collectio n Time Received Time / Laterality Volume Impressions 07/27/2017 11:26 AM EST 1. 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 2. ??Loculated left hip joint effusion c oncerning for pseudotumor. If clinically indicated, correlation with fluid sampli ng could be obtained. I have personally reviewed the image(s) and the residents interpretation and agree with the findings, JAMIE ROBIN at 11:26 AM Narrative 07/27/2017 11:26 AM EST EXAMINATION: MRI HIP WO CONTRAST RIGHT (GENERIC), MRI HIP WO CONTRAST LEFT (GENERIC) CLINICAL HISTORY: [id number] hip art hroplasties with pain; assess for pseudotumor TECHNIQUE: MRI of the right hip and left hip was pe rformed without intravenous contrast including T2-weighted and STIR sequences in 3 planes. 3 sequences include the entirety of the pelvis COMPARISON: MRI of the left hip dated 07/24/2017. Ra diographs of the right hip dated 09/09/2016 10/29/2010, 10/23/2009, 9, 10/30/2007, 07/31/2008, 07/05/2008, 06/17/2007. FINDINGS: There are bilateral total hip arthroplas ties. 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 There is a left hip joint effusion with a loculated fluid extending superiorly away from the hip j oint. This is concerning for pseudotumor. If clinically indicated, co rrelation with fluid sampling could be obtained. No other fluid collection or s oft tissue mass seen. No evidence of fracture. No dislocation. No muscle edema. No tendon tear. There is degenerative disc disease and d egenerative facet arthropathy of the partly imaged lower lumbar spine, most p ronounced at L5/S1. There is extensive sigmoid diverticulosis. The prostate pro trudes into the urinary bladder base, and there is diffuse mild urinary bladde r wall thickening that could reflect chronic urinary bladder outlet obstructi on. Procedure Note Jamie Robin MD - 07/27/2017Formatting o f this note might be different from the original. EXAMINATION: MRI HIP WO CONTRAST RIGHT ( GENERIC), MRI HIP WO CONTRAST LEFT (GENERIC) CLINICAL HISTORY: [id number] hip art hroplasties with pain; assess for pseudotumor TECHNIQUE: MRI of the right hip and left hip was pe rformed without intravenous contrast including T2-weighted and STIR sequences in 3 planes. 3 sequences include the entirety of the pelvis COMPARISON: MRI of the left hip dated 07/24/2017. Ra diographs of the right hip dated 09/09/2016 10/29/2010, 10/23/2009, 9, 10/30/2007, 07/31/2008, 07/05/2008, 06/17/2007. FINDINGS: There are bilateral total hip arthroplas ties. 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 There is a left hip joint effusion with a loculated fluid extending superiorly away from the hip j oint. This is concerning for pseudotumor. If clinically indicated, co rrelation with fluid sampling could be obtained. No other fluid collection or s oft tissue mass seen. No evidence of fracture. No dislocation. No muscle edema. No tendon tear. There is degenerative disc disease and d egenerative facet arthropathy of the partly imaged lower lumbar spine, most p ronounced at L5/S1. There is extensive sigmoid diverticulosis. The prostate pro trudes into the urinary bladder base, and there is diffuse mild urinary bladde r wall thickening that could reflect chronic urinary bladder outlet obstructi on. IMPRESSION 1. 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 2. Loculated left hip joint effusion con cerning for pseudotumor. If clinically indicated, correlation with fluid sampli ng could be obtained. I have personally reviewed the image(s) and the residents interpretation and agree with the findings, JAMIE ROBIN at 11:26 AM Jack Lewis MD IMG MRI ORDERABLES documented in this encounter Visit Diagnoses Diagnosis Hip pain, left Pain in joint, pelvic region and thigh Hip pain, right Pain in joint, pelvic region and thigh History of total hip arthroplasty, bilat eral Hip pain, left Pain in joint, pelvic region and thigh Hip pain, right Pain in joint, pelvic region and thigh documented in this encounter Care Teams Residential Pest Control Technician Relationship Specialty Start Date End Date Maldonado Ibarra MD PCP - General 08/06/10 07/23/17 [address] [place] [address] documented as of this encounter
--- OUTSIDE RECORDS SUMMARY | 2022-07-01 13:48 | XMS_ITS | Encounter Summary ---
:1955 Author Organization [facility] [address] Care Team Providers Name Role Phone Nestor Quiroga MD Primary Care Provider Encounter Details Date Type Department Care Team Description 08/05/2017 Telephone Orthopaedics at [facility] [place] [address] Social History Tobacco Use Types Packs/Day [...] Telephone Encounter - Nikki Forbes RN - 08/05/2017 11:17 AM EST Patient called requesting results from MRI, advised that Dr. Lewis was not in this week however I would sent him a message concerning this and Dr. Lewis would call him with results documented in this encounter Plan of Treatment Upcoming Encounters Date Type Specialty Care Team Description 07/08/2022 Office Visit Radiation Oncology Shelley Kimble, FABRIC COATING SUPERVISOR [facility] RADIATION ONCWARNER [facility], [place] [address] (Wo rk) documented as of this encounter Visit Diagnoses Not on filedocumented in this encounter Care Teams Chrome Polisher Relationship Specialty Start Date End Date Nestor Quiroga MD PCP - General Family Medicine 07/24/17 08/24/18 [address] [place] [address] documented as of this encounter
--- OUTSIDE RECORDS SUMMARY | 2022-07-01 13:48 | XMS_ITS | Encounter Summary ---
:1955 Author Organization [facility] [place] [address] Care Team Providers Name Role Phone None Primary Care Provider Unavailable Reason for Visit Reason Comments Pre-op Exam Case reg 01/12/20 Rev L REGGIE Auth/Cert Specialty Diagnoses / Procedures Referred By Contact Refer red To Contact Diagnoses Broken internal left hip prosthesis, sequela Failed Left REGGIE Procedures PRO REVISE TOTAL HIP REPLACEMENT @TOTAL HIP REVISION ARTHROPLASTY, COMPLETE (WRVU 30.28) MODIFIER RECLAIM DEPUY Referral ID Status Reason Start Date Expiration Date Visits Requ ested Visits Authorized [id number] 1 1 Encounter Details Date Type Department Care Team Description 01/11/2020 Office Visit Orthopaedics at [facility] Jack Lewis, Failure of left [facility] total hip Drive [facility] arthroplasty, [place] [address] [address] paz [phone] ORTHOPAEDIC SURG [place], [place] [address] (Wo rk) Social History Tobacco [...] Time Taken Comments Blood Pressure 163/93 01/11/2020 1:52 PM EDT Pulse 72 01/11/2020 1:52 PM EDT Temperature - - Respiratory Rate - - Oxygen Saturation 97% 01/11/2020 1:52 PM EDT Inhaled Oxygen Concentration - - Weight 100.2 kg (221 lb) 01/11/2020 1:52 PM EDT Height 180.3 cm (5' 11) 01/11/2020 1:52 PM EDT Body Mass Index 30.82 01/11/2020 1:52 PM EDT documented in this encounter Progress Notes Becky Post RN - 01/11/2020 2:00 PM EDT Arthroplasty History/Previous Hip Surgery: 1. 07/31/2008 Bilateral metal on metal total hip arthroplasty Dr. Christensen ??using [employer] SL-Plus stems and bilateral [place] acetabular components with Ultamet??liners. ?? This note is recorded by Becky Post RN acting as a scribe for Dr. Bjorn Lewis. PREOPERATIVE VISIT Interval History: Dominick Castro is a pleasant 64 y.o. year old male with a failed LEFT hip replacement being seen today to discuss a LEFT total hip arthroplasty revision. His history and physical exam were reviewed in detail. His history in regards to his hip was once again discussed and is outlined in a previous note. He states the hip pain and disability is worse since their previous visit. They have reviewed their options and at this point are expressing a desire to proceed with surgery. He does not endorse a history of DVT/PE or clotting Physical Exam: Exam is previously documented in my note and is essentially unchanged. Clinical Leg Length Discrepancy - 0 cm Inspection of his skin on the operative side demonstrates No skin breakdown. Significant Medical Comorbidities Patient Active Problem List Diagnosis Code ??? Rotator cuff tear M75.100 ??? Migraines G43.909 ??? 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 Relevant Lab Studies Lab Results Component Value Date WBC 5.8 01/11/2020 HGB 15.6 01/11/2020 HCT 46.4 01/11/2020 PLATELET 198 01/11/2020 CREATININE 0.70 (L) 01/11/2020 BUN 15 01/11/2020 NA 139 01/11/2020 K 3.9 01/11/2020 CRP 2.0 07/20/2019 SEDRATE 6 07/20/2019 INR 1.0 01/11/2020 No results for input(s): HA1C in the last 7068 hours. No results for input(s): ALBUMIN in the last 168 hours. Estimated Creatinine Clearance: 126.9 mL/min (A) (based on SCr of 0.7 mg/dL (L)). O Pos No results found for: SPGRAVITYUA, PHUADIP, PROTEINUADIP, GLUCOSEU, KETONESUA, UROBILIUADIP, BLOODUADIP, NITRATEUA, LEUKOESTERUA, WBCUA, BILIRUBINUA Questionnaire Response [facility] Surgical Preop Visit 07/20/2019 PROMIS-10 General Health Good PROMIS-10 Quality of Life Good PROMIS-10 Physical Health Good PROMIS-10 Mental Health Good PROMIS-10 Social Activity Good PROMIS-10 Everyday Activities Moderately PROMIS-10 Pain 7 PROMIS-10 Fatigue None PROMIS-10 Social Roles Good PROMIS-10 Anxious or Depressed Rarely PROMIS PHYSICAL SCORE (range 16-68) 42.3 PROMIS MENTAL SCORE (range 21-68) 45.8 HOOS JR Scores 55.99 REGGIE Grade 3 Pain in other HIP Moderate Back pain at this moment None [facility] Response 07/20/2019 HOOS JR Scores 55.99 Spine [facility] Response 07/20/2019 HOOS JR Scores 55.99 Radiographic Analysis Together, we reviewed the preop radiographs obtained previously. The xrays demonstrate significant proximal femoral bone loss with likely loosening of the left femoral stem. Last CRP was 2.0 on 07/2019. Co 5.6 and Chromium 1.7 08/02. Assessment and Plan: This is a pleasant 64 y.o. year-old male who presents for a preoperative appointment today for LEFT hip revision. I had a long discussion with him regarding the risks and benefits of total hip arthroplasty revision surgery. I indicated that in my opinion, this is the treatment option most likely to res tore a more normal, pain-free level of function and that we have exhausted reasonable non-operative alternatives. I discussed how I perform the procedure and the surgical plan. All of their questions were answered. Mr. Castro expressed a desire to pursue this option. We then discussed in great detail the risks associated with the proposed surgery. These included butwere not limited to: bleeding (which may or may not require transfusion), infection, damage to nerves or blood vessels, deep venous thrombosis, pulmonary embolus, prosthetic failure, loosening, prosthetic fracture, femur or pelvic fracture, dislocation, leg-length inequality, persistent pain, need forfuture surgery, medical complications (including cardiac, respiratory and neurologic complications),anaesthetic complications, and . The patient seemed to understand the nature of this procedure's risks. We also discussed the likely benefit of improved stride length, improved range of motion, decreased pain, decreased need for pain medications and decrease functional limitations. The patient isaware that it would take on average 2 days in the hospital, followed by approximately 12-18 months to full rehabilitation. I did review the history and physical today which says the patient is cleared for surgery and has nospecific recommendations for further testing. I reviewed the labs and did not identify anything thatwould warrant surgical delay. We discussed DNR status and he is a Full Code We reviewed options for postoperative DVT prophylaxis, [...] he would NOT refuse a blood transfusion. Opioid PDMP 01/11/2020 [place] PDMP Query Date 01/11/2020 [place] PDMP Query Date 01/11/2020 [place] PDMP Query Date 01/11/2020 Dominick Castro will be prescribed a prescription opioid for the treatment of acute post-operative pain related to Orthopedic surgery. Dominick Castro will be advised to take the smallest dose possible to control their pain and as their pain improves to take smaller doses and increase the time between doses. In addition to this medication, non-opioid medications will be prescribed for adjunct treatment of their pain. Non-pharmacological treatment such as ice, elevation and activity modification will be recommended as appropriate. The Acute Opioid Therapy Informed Consent form has been completed and sent to medical records for scanning to chart. Patient has Narcotic Agreement with [facility] with Dr Leroy. Notified [place] that Dr. Lewis will manage the patient's pain management/meds for the next month and then Dr Leroy is to resume responsibility following. We discussed with them the possible discharge scenarios including going home versus needing to go toa rehab facility depending on how well their mobility progresses post-operatively. TJA Clotting and Bleeding Assessment Genetic predisposition [...] provided: Yes Patient demonstrated appropriate understanding of pre-op chlorhexideine wash and mupirocin ointment use after instructions provided: Yes General Assessment Total joint preparedness for surgery: No Patient understands when to call the office pre-op and post-op: Verbalizes understanding Assistive device(s) used pre-op: None Patient currently on narcotics: Yes Patient has narcotic agreement signed: Yes (see comment)(Dr Leroy- [facility]) Prep for Surgery Advance Directive: Has one (will bring in copy) Recommend referral to Patient Financial Services: No Living arrangement: House Home layout: One level, Stairs to enter w/ rails, Able to live on main level Number of stairs within home: 10 Who will provide post-op care and support: (- Ele) Who will provide transportation home: -Ele Patient's desired discharge disposition: home with VNA Top 3 nursing choice facilities: no preference VNA preference: No preference Outpatient PT preference: [facility] Discharge barriers and challenges: None Will the patient require VNA services post-op: Yes; the patient/caregivers were provided with a listof VNA's which serve their preferred geographic location and they were educated about their right tochoose where referrals are placed. Selection: [place]: No preference Any remaining questions were solicited from the patient and answered. Mr. Castro wishes to proceed accordingly and informed consent was subsequently obtained for a LEFT total hip arthroplasty REVISION. Expedited Discharge Candidate?: no Recommendations from Dr. Condon: Orders per Dr. Jack Lewis We discussed using Celebrex while in house. We discussed using Naprosyn for 6 weeks after surgery for post-operative pain management. I ensured that the patient has the needed samples of hibiclens washto use both the night before and the morning of the anticipated surgery. I have personally evaluated the patient and agree with the above note as recorded by CHAZ Pastor MD 01/11/2020 documented in this encounter Plan of Treatment Upcoming Encounters Date Type Specialty Care Team Description 07/08/2022 Office Visit Radiation Oncology Shelley Kimble, DIVE MASTER [facility] RADIATION ONCWARNER [place], [place] [address] (Wo rk) documented as of this encounter Visit Diagnoses Diagnosis Failure of left total hip arthroplasty, sequela documented in this encounter Care Teams Truck Rental Manager Relationship Specialty Start Date End Date None PCP - General 07/20/19 01/11/20 None documented as of this encounter
--- OUTSIDE RECORDS SUMMARY | 2022-07-01 13:48 | XMS_ITS | Encounter Summary ---
:1955 Author Organization [facility] Address [address] [facility] [place] [address] Care Team Providers Name Role Phone Maldonado Ibarra MD Primary Care Provider Reason for Visit Reason Onset Date Comments Appointment 01/03/2016 Missing Images Encounter Details Date Type Department Care Team Description 01/03/2016 Telephone Orthopaedics at [facility] Raffi Raymond MD Appointment (Missing One [facility] D rive [facility] Images) [place] [address] ORTHOPAEDIC SURGERY [place], [place] [address] Social History Tobacco Use Types [...] this encounter Miscellaneous Notes Telephone Encounter - Precious Lion - 01/03/2016 4:07 PM EDT LM for patient letting him know we had not received a disk of images from [facility]. Requestedhe bring one with him to his appt tomorrow and have it uploaded prior to the appt. documented in this encounter Plan of Treatment Upcoming Encounters Date Type Specialty Care Team Description 07/08/2022 Office Visit Radiation Oncology Shelley Kimble, MECHANICAL TEST ENGINEER [facility] ER RADIATION ONCWARNER [place], [place] [address] (Wo rk) documented as of this encounter Visit Diagnoses Not on filedocumented in this encounter Care Teams Strainer Cleaner Relationship Specialty Start Date End Date Maldonado Ibarra MD PCP - General 08/06/10 07/23/17 [address] [place] [address] documented as of this encounter
--- OUTSIDE RECORDS SUMMARY | 2022-07-01 13:48 | XMS_ITS | Encounter Summary ---
:1955 Author Organization [facility] [place] [address] Care Team Providers Name Role Phone Nestor Quiroga MD Primary Care Provider Reason for Referral Diagnostic Test (Routine) - Closed Specialty Diagnoses / Procedures Referred By Contact Refer red To Contact Radiology Diagnoses Hip pain, right Jakc Lewis MD [facility] Rad Mri Procedures MRI Hip wo Contrast Right (Generic) [facility] [place] [address] [place] [address] Referral ID Status Reason Start Date Expiration Date Visits V isits Requested Authorized [id number] Closed Specialty 09/25/2016 09/25/2017 1 1 Service Requested iagnostic Test (Routine) - Specialty Diagnoses / Procedures Referred By Contact Refer red To Contact Radiology Diagnoses Hip pain, left Jack Lewis MD [facility] Rad Mri Procedures MRI Hip wo Contrast Left (Generic) [facility] [place] [address] [place] [address] Referral ID Status Reason Start Date Expiration Visits Visits Date Requested Authorized [id number] Specialty 09/25/2016 09/25/2017 1 1 Service Requested Reason for Visit Diagnostic Test (Routine) - Closed Specialty Diagnoses / Procedures Referred By Contact Refer red To Contact Radiology Diagnoses Hip pain, right Jack Lewis MD [facility] Rad Mri Procedures MRI Hip wo Contrast Right (Generic) [facility] Drive [place] [address] [place] [address] Referral ID Status Reason Start Date Expiration Date Visits V isits Requested Authorized [id number] Closed Specialty 09/25/2016 09/25/2017 1 1 Service Requested Encounter Details Date Type Department Care Team Description 07/24/2017 Hospital Encounter MRI at [facility] Jack Lewis, Hip pain, left; [facility] Hip pain, [place] [address] ORTHOPAEDIC [phone] SURGERY [place], [place] [address] Social History Tobacco Use Types [...] Office Visit Radiation Oncology Shelley Kimble APRN [facility] RADIATION ONCWARNER [place], [place] [address] (Wo rk) documented as of this encounter Procedures Procedure Name Priority Date/Time Associated Diagnosis Comme nts MRI HIP RIGHT WO Routine 07/24/2017 5:44 PM Hip pain, right Re sults for this CONTRAST EST procedure are i n the results section. MRI HIP LEFT WO Routine 07/24/2017 5:44 PM Hip pain, left Resu lts for this CONTRAST EST procedure are i n the results section. documented in this encounter Results MRI Hip wo Contrast [...] interpretation and agree with the findings, JAMIE HACKETT at 11:26 AM Narrative 07/27/2017 11:26 AM EST EXAMINATION: MRI HIP WO CONTRAST RIGHT (GENERIC), MRI HIP WO CONTRAST LEFT (GENERIC) CLINICAL HISTORY: [id number] hip art hroplasties with pain; assess for [...] bladder outlet obstructi on. Procedure Note Jamie Hackett MD - 07/27/2017Formatting o f this note might be different from the original. EXAMINATION: MRI HIP WO CONTRAST RIGHT ( GENERIC), MRI HIP WO CONTRAST LEFT (GENERIC) CLINICAL HISTORY: mzuxh-bk-eoixp hip art hroplasties with pain; assess for [...] interpretation and agree with the findings, JAMIE HACKETT at 11:26 AM Jack Lewis MD IMG [...] interpretation and agree with the findings, JAMIE HACKETT at 11:26 AM Narrative 07/27/2017 11:26 AM EST EXAMINATION: MRI HIP WO CONTRAST RIGHT (GENERIC), MRI HIP WO CONTRAST LEFT (GENERIC) CLINICAL HISTORY: qpzjh-[id number]-bulve hip art hroplasties with pain; assess for [...] bladder outlet obstructi on. Procedure Note Jamie Hackett MD - 07/27/2017Formatting o f this note might be different from the original. EXAMINATION: MRI HIP WO CONTRAST RIGHT ( GENERIC), MRI HIP WO CONTRAST LEFT (GENERIC) CLINICAL HISTORY: [id number] hip art hroplasties with pain; assess for [...] interpretation and agree with the findings, JAMIE HACKETT at 11:26 AM Jack Lewis MD IMG MRI ORDERABLES documented in this encounter Visit Diagnoses Diagnosis Hip pain, left Pain in joint, pelvic region and thigh Hip pain, right Pain in joint, pelvic region and thigh documented in this encounter Care Teams Keno Writer / Runner Relationship Specialty Start Date End Date Nestor Quiroga MD PCP - General Family Medicine 07/24/17 08/24/18 [address] [place] [address] documented as of this encounter
--- OUTSIDE RECORDS SUMMARY | 2022-07-01 13:48 | XMS_ITS | Encounter Summary ---
:1955 Author Organization [facility] [place] [address] Care Team Providers Name Role Phone None Primary Care Provider Unavailable Encounter Details Date Type Department Care Team Description 12/16/2019 Telephone Orthopaedics at [facility] Jack Lewis [place] [facility] [place] [address] ORTHOPAEDIC SURGERY [phone] [place], [place] [address] (Wo rk) Social History Tobacco [...] Notes Telephone Encounter - Jennifer Lynn - 12/16/2019 9:09 AM EDT I spoke with patient about delaying his/her surgery, Patient is fine and understands the process. documented in this encounter Plan of Treatment Upcoming Encounters Date Type Specialty Care Team Description 07/08/2022 Office Visit Radiation Oncology Shelley Kimble, PRESS OPERATOR APPRENTICE [facility] RADIATION ONCWARNER [place], [place] [address] (Wo rk) documented as of this encounter Visit Diagnoses Not on filedocumented in this encounter Care Teams Ordering Machine Operator Relationship Specialty Start Date End Date None PCP - General 07/20/19 01/11/20 None documented as of this encounter
--- OUTSIDE RECORDS SUMMARY | 2022-07-01 13:48 | XMS_ITS | Encounter Summary ---
:1955 Author Organization [facility] [place] [address] Care Team Providers Name Role Phone Nestor Quiroga MD Primary Care Provider Encounter Details Date Type Department Care Team Description 07/10/2017 Orders Only Orthopaedics at [facility] Jack Lewis [place] [address] ORTHOPAEDIC SURGERY [phone] [place], [place] [address] (Wo rk) Social History Tobacco [...] Office Visit Radiation Oncology Shelley Kimble APRN [facility] RADIATION ONCWARNER [place], [place] [address] (Wo rk) documented as of this encounter Visit Diagnoses Not on filedocumented in this encounter Care Teams Representative Government Relations Relationship Specialty Start Date End Date Nestor Quiroga MD PCP - General Family Medicine 07/24/17 08/24/18 [address] [place] [address] documented as of this encounter
--- OUTSIDE RECORDS SUMMARY | 2022-07-01 13:48 | XMS_ITS | Encounter Summary ---
:1955 Author Organization [facility] [place] [address] Care Team Providers Name Role Phone Maldonado Ibarra MD Primary Care Provider Encounter Details Date Type Department Care Team Description 09/05/2016 Orders Only Orthopaedics at [facility] Jack Lewis, Hip joint replacement [facility] [place] [address] ORTHOPAEDIC SURG [place], [place] [address] (Wo rk) Social History Tobacco [...] Office Visit Radiation Oncology Shelley Kimble APRN [facility] RADIATION ONCWARNER [place], [place] [address] (Wo rk) documented as of this encounter Results XR Pelvis w AP [...] status Hip joint replacement by other means Hip joint replacement status Hip joint replacement by other means documented in this encounter Care Teams Fruit Harvester Relationship Specialty Start Date End Date Maldonado Ibarra MD PCP - General 08/06/10 07/23/17 [address] [place] [address] documented as of this encounter
--- OUTSIDE RECORDS SUMMARY | 2022-07-01 13:48 | XMS_ITS | Encounter Summary ---
:1955 Author Organization [facility] [place] [address] Care Team Providers Name Role Phone None Primary Care Provider Unavailable Encounter Details Date Type Department Care Team Description 07/20/2019 Laboratory Appointment Lab 3L Padma Forde Hip pain, bilateral; [facility] History of total hip arthrop lasty, [place] [address] Social History Tobacco Use Types Packs/Day Years [...] Office Visit Radiation Oncology Shelley Kimble APRN [facility] RADIATION ONCWARNER [place], [place] [address] (Wo rk) documented as of this encounter Procedures Procedure Name Priority Date/Time Associated Diagnosis Comme nts HC C-REACTIVE STAT 07/20/2019 11:47 AM Hip pain, bi lateral Results for this PROTEIN EST History of total hip procedu re are in arthroplasty, the results bilateral section. HC STAT 07/20/2019 11:47 AM Hip pain, bi lateral Results for this ESR-SEDIMENTATION EST History of total hip pr ocedure are in RATE, BLOOD arthroplasty, the results bilateral section. documented in this encounter Results Sedimentation rate (07/20/2019 11:47 AM EST) P athologist Signature Sed Rate 6 0 - 15 [facility] mm/hr [facility] Specimen Anatomical Collection Method Collection Time Receive d Time (Source) Location / / Volume Laterality Blood specimen 07/20/2019 11:47 9 (specimen) AM EST 12:16 PM EST Resulting Agency Comment Spec In Lab Juan José Gray MD HEMATOLOGY ORDERABLES Performing Organization Address City/[facility]/[place] [address] CRP, acute inflammation (07/20/2019 11:47 AM EST) athologist Signature CRP 2.0 <=4.9 mg/L [facility] Specimen Anatomical Collection Method Collection Time Receive d Time (Source) Location / / Volume Laterality Blood specimen 07/20/2019 11:47 9 (specimen) AM EST 12:16 PM EST Resulting Agency Comment Spec In Lab Juan José Gray MD CHEMISTRY ORDERABLES Performing Organization Address City/[facility] [place] [address] documented in this encounter Visit Diagnoses Diagnosis Hip pain, bilateral Pain in joint, pelvic region and thigh History of total hip arthroplasty, bilat eral documented in this encounter Care Teams Supervisor [employer] Relationship Specialty Start Date End Date None PCP - General 07/20/19 01/11/20 None documented as of this encounter
--- OUTSIDE RECORDS SUMMARY | 2022-07-01 13:48 | XMS_ITS | Encounter Summary ---
:1955 Author Organization [facility] [place] [address] Care Team Providers Name Role Phone None Primary Care Provider Unavailable Reason for Visit Reason Comments Pre-op Exam 01/12/2020 L REGGIE revision Auth/Cert Specialty Diagnoses / Procedures Referred By Contact Refer red To Contact Diagnoses Broken internal left hip prosthesis, sequela Failed Left REGGIE Procedures PRO REVISE TOTAL HIP REPLACEMENT @TOTAL HIP REVISION ARTHROPLASTY, COMPLETE (WRVU 30.28) MODIFIER RECLAIM DEPUY Referral ID Status Reason Start Date Expiration Date Visits Requ ested Visits Authorized [id number] 1 1 Encounter Details Date Type Department Care Team Description 01/11/2020 Office Visit Orthopaedics at [facility] [place], Preop examination; [facility] Ronnie Haq MD Failure of left total hip arthroplasty[place] [address] CENTER [phone] ORTHOPAEDIC SURGERY [place], [place] [address] Social History Tobacco Use Types [...] Time Taken Comments Blood Pressure 163/93 01/11/2020 11:42 AM EDT Pulse 72 01/11/2020 11:42 AM EDT Temperature - - Respiratory Rate - - Oxygen Saturation 97% 01/11/2020 11:42 AM EDT Inhaled Oxygen Concentration - - Weight 100.2 kg (221 lb) 01/11/2020 11:42 AM EDT Height 180.3 cm (5' 11) 01/11/2020 11:42 AM EDT Body Mass Index 30.82 01/11/2020 11:42 AM EDT documented in this encounter Progress Notes Ronnie Condon MD - 01/11/2020 11:40 AM EDT CC: Dominick Castro is a 64 y.o. male new patient to the perioperative clinic with the following problems and medications that is being seen in the clinic for consultation at the request of his surgeon Dr. 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 Patient Active Problem List Diagnosis Code ??? Rotator cuff tear M75.100 ??? Migraines G43.909 ??? 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 oxyCODONE-acetaminophen (PERCOCET) 5-325 mg Tablet Take by mouth as needed. For Migraines and Hip Pain 0 No current facility-administered medications for this visit. Social History Occupational History ??? Not on [...] chest pain, palpitations and leg swelling. Gastrointestinal: Negative for abdominal pain, anal bleeding and blood in stool. Endocrine: Negative for polydipsia and polyphagia. Genitourinary: Negative for dysuria, flank pain and hematuria. Skin: Negative for pallor and rash. Allergic/Immunologic: Negative for environmental allergies and immunocompromised state. Neurological: Negative for syncope and speech difficulty. Hematological: Negative for adenopathy. Does not bruise/bleed easily. Psychiatric/Behavioral: Negative for confusion, decreased concentration and dysphoric mood. Allergies: No Known Allergies Physical Exam: Last Set of Vitals and Range over past 24 hours: Last value Range last 24 hrs Heart Rate Heart Rate: 72 Heart Rate: [72] Blood Pressure BP: (!) 163/93 BP: (163)/(93) SpO2 SpO2: 97 % SpO2: [97 %] Estimated body mass index is 30.82 kg/m?? as calculated from the following: Height as of this encounter: 180.3 cm (5' 11). Weight as of this encounter: 100.2 kg (221 lb). Physical Exam Constitutional: He is oriented [...] no edema. He has no drift with left hip flexion or ankle dorsiflexion. Neurological: He is alert and oriented to person, place, and time. He exhibits no resting or intentional tremors, dystonia or dysmetria. Skin: Skin is warm and dry. He is not diaphoretic. No pallor. Psychiatric: He has a normal mood and affect. His behavior is normal. Judgment and thought content normal. Lab Results Component Value Date WBC 5.8 01/11/2020 RBC 5.14 01/11/2020 HGB 15.6 01/11/2020 HCT 46.4 01/11/2020 MCV 90.3 01/11/2020 MCH 30.4 01/11/2020 MCHC 33.6 01/11/2020 PLATELET 198 01/11/2020 RDWCV 12.8 01/11/2020 Lab Results Component Value Date NA 139 01/11/2020 K 3.9 01/11/2020 CL 102 01/11/2020 CO2 22 01/11/2020 BUN 15 01/11/2020 CREATININE 0.70 (L) 01/11/2020 GLUCOSE 100 01/11/2020 CALCIUM 9.4 01/11/2020 ESTGFR 99 01/11/2020 Lab Results Component Value Date PT 11.7 01/11/2020 INR 1.0 01/11/2020 PTT 34 01/11/2020 Lab Results Component Value Date CRP 2.0 07/20/2019 SEDRATE 6 07/20/2019 Estimated Creatinine Clearance: 126.9 mL/min (A) (based on SCr of 0.7 mg/dL (L)). Xray - 1. Bilateral total hip arthroplasties are intact without dislocation. Unremarkable appearance of the acetabular components. 2. Extensive bilateral periprosthetic lucencies in the femoral stems, left greater than right. This has progressed on the left and is stable on the right. Findings are concerning for small particle disease or loosening. A/P 1. Preop examination 2. Failure of left total hip arthroplasty, sequela He elects to proceed with left REGGIE revision to address MoM sequelae and also pain. He anticipates staging the other in the future since it has been bothering him lately. 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, in [place] also, daughter age 26 visually impaired with microcephaly) and based on the ACC/AHA 2014 guideline [...] 07/08/2022 Office Visit Radiation Oncology Shelley Kimble, CORROSION CONTROL FITTER [facility] RADIATION ONCWARNER [place], [place] [address] (Wo rk) documented as of this encounter Visit Diagnoses Diagnosis Preop examination Preoperative examination, unspecified Failure of left total hip arthroplasty, sequela documented in this encounter Care Teams Advertising Coordinator Relationship Specialty Start Date End Date None PCP - General 07/20/19 01/11/20 None documented as of this encounter
--- OUTSIDE RECORDS SUMMARY | 2022-07-01 13:48 | XMS_ITS | Encounter Summary ---
:1955 Author Organization [facility] [place] [address] Care Team Providers Name Role Phone Maldonado Ibarra MD Primary Care Provider Encounter Details Date Type Department Care Team Description 09/27/2015 Hospital Encounter Radiology Library at [facility], [place] [address] Social History Tobacco Use Types Packs/Day [...] 07/08/2022 Office Visit Radiation Oncology Shelley Kimble, MATHEMATICS EDUCATION PROFESSOR [facility] RADIATION ONCWARNER [place], [place] [address] (Wo rk) documented as of this encounter Procedures Procedure Name Priority Date/Time Associated Diagnosis Comme nts FILM LIBRARY Routine 09/27/2015 12:00 AM Pain Results for this STORAGE ONLY DX EST procedure ar e in SHOULDER the results section. documented in this encounter Results Film Library- Storage only DX Shoulder (09/27/2015 12:00 AM EST) Specimen (Source) Anatomical Location Collection Method / Collectio n Time Received Time / Laterality Volume Narrative [facility] [place] 2] - 01/04/2016 9:46 AM EDT This exam is for storage only and is aut o-finalizing. Dr Castañeda [facility] FILM LIBRARY ORDERABLES Performing Organization Address City/State/ZIP Code Phon e Number [place], [place] documented in this encounter Visit Diagnoses Diagnosis Pain Generalized pain documented in this encounter Care Teams Business Banker Relationship Specialty Start Date End Date Maldonado Ibarra MD PCP - General 08/06/10 07/23/17 [address] [place] [address] documented as of this encounter
--- OUTSIDE RECORDS SUMMARY | 2022-07-01 13:48 | XMS_ITS | Encounter Summary ---
:1955 Author Organization [facility] [place] [address] Care Team Providers Name Role Phone Maldonado Ibarra MD Primary Care Provider Encounter Details Date Type Department Care Team Description 10/29/2010 Procedure visit [address] [address] Social History Tobacco Use Types Packs/Day Years [...] 07/08/2022 Office Visit Radiation Oncology Shelley Kimble, JOB DEVELOPER [facility] RADIATION ONCWARNER [place], [place] [address] (Wo rk) documented as of this encounter Visit Diagnoses Not on filedocumented in this encounter Care Teams Real Estate Transaction Manager Relationship Specialty Start Date End Date Maldonado Ibarra MD PCP - General 08/06/10 07/23/17 [address] [place] [address] documented as of this encounter
--- OUTSIDE RECORDS SUMMARY | 2022-07-01 13:48 | XMS_ITS | Encounter Summary ---
:1955 Author Organization [facility] [place] [address] Care Team Providers Name Role Phone Maldonado Ibarra MD Primary Care Provider Reason for Visit Reason Onset Date Comments Bumped Appointment 09/02/2016 Encounter Details Date Type Department Care Team Description 09/02/2016 Telephone Orthopaedics at [facility] [place] Raffi Raymond MD [place] [address] ORTHOPAEDIC SURG [place], [place] [address] (Wo rk) Social History Tobacco [...] Notes Telephone Encounter - Cecilia Willson - 09/02/2016 11:27 AM EST Patient arrived for appointment. Telephone Encounter - Maura Rosa Erika - 09/02/2016 8:36 AM EST Left messages for patient and looking to reschedule patient's appt with Dr. Raymond for today - hehas had to cancel clinic due to illness. Patient could be rescheduled, or if he would like to proceed with surgery please route message to Maura so I can start coordinating. documented in this encounter Plan of Treatment Upcoming Encounters Date Type Specialty Care Team Description 07/08/2022 Office Visit Radiation Oncology Shelley Kimble, CHEMICAL OPERATIONS SPECIALIST [facility] ER RADIATION ONCBOCA [place], [place] [address] (Wo rk) documented as of this encounter Visit Diagnoses Not on filedocumented in this encounter Care Teams Account Receivable Clerk Relationship Specialty Start Date End Date Maldonado Ibarra MD PCP - General 08/06/10 07/23/17 [address] [place] [address] documented as of this encounter
--- OUTSIDE RECORDS SUMMARY | 2022-07-01 13:54 | XMS_ITS | Encounter Summary ---
:1955 Author Organization [facility] Address [address] [place] [address] Care Team Providers Name Role Phone Grover Herman MD Primary Care Provider Encounter Details Date Type Department Care Team Description 08/21/[address] [facility] Outr Resulting Lab, Pathology & Laboratory Provider [facility] [address] [place] [address] Social History Tobacco Use Types Packs/Day Years Used Date Never Smoker Smokeless Tobacco: Never Used Sex Assigned at Date Recorded Not on file documented as of this encounter Plan of Treatment Not on filedocumented as of this encounter Procedures Procedure Name Priority Date/Time Associated Diagnosis Comme nts SYPHILIS SEROLOGY Routine 08/21/2021 13:03 Result s for this EST procedure are i n the results section. HERPES SIMPLEX Routine 08/21/2021 13:03 Results f or this VIRUS (HSV) TYPE 1 EST procedure are in & 2 AB, IGG the results section. documented in this encounter Results SYPHILIS SEROLOGY (08/21/2021 13:03 EST) Pathologist Sig nature Syphilis Serology Negative Negative [facility] Specimen Blood - Venous blood (substance) Performing Organization Address [facility] Code Phon e Number [facility] [address] [place] [address] SERVICES (ABNORMAL) HERPES SIMPLEX VIRUS (HSV) TYPE 1 & 2 AB, IGG (08/21/2021 13:03 EST) HSV Type 1 Ab, IgG Positive Negative [facility] (A)Comment: LABORATORY SERVICES Indicates the presence of detectable IGG Antibody to HSV1 HSV Type 2 Ab, IgG Positive Negative [facility] (A)Comment: LABORATORY SERVICES Indicates the presence of detectable IGG antibody to HSV 2 Specimen Blood - Venous blood (substance) Performing Organization Address City/[facility] Phon e Number [facility] [address] [place] [address] SERVICES documented in this encounter Visit Diagnoses Not on filedocumented in this encounter Care Teams Layboy Operator Relationship Specialty Start Date End Date Grover Herman MD PCP - General 06/06/[address] [place] [address] documented as of this encounter
--- OUTSIDE RECORDS SUMMARY | 2022-07-01 13:54 | XMS_ITS | Encounter Summary ---
:1955 Author Organization [facility] Address [address] [place] [address] Care Team Providers Name Role Phone Grover Herman MD Primary Care Provider Encounter Details Date Type Department Care Team Description 08/15/2021 Lab Requisition [facility] Farheen Cruz N eoplasm of Pathology & [place] uncertain behavior Laboratory Medicine [address] [place] [address] [address] [place] [address] Social History Tobacco Use Types Packs/Day Years Used Date Never Smoker Smokeless Tobacco: Never Used Sex Assigned at Date Recorded Not on file documented as of this encounter Discharge Disposition Disposition Code Departure Means Destination Home or Self Care documented in this encounter Plan of Treatment Not on filedocumented as of this encounter Procedures Procedure Name Priority Date/Time Associated Diagnosis Comme nts SURGICAL PATHOLOGY Today 08/14/2021 11:19 Neoplasm of Resul ts for this EST uncertain behavior procedure are in of skin the results section. documented in this encounter Results SURGICAL PATHOLOGY (08/14/2021 11:19 EST) Note to Patient The following [facility] MEDICAL pathology results have CENTER been interpreted by LABORATORY your pathologist and SERVICES may be available to you before your health provider has had the opportunity to review them. Please allow time for your provider to receive these results and explore management options, if applicable. Final Diagnosis A. 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 See microscopic. [facility] LABORATORY B. SKIN OF BACK, RIGHT SUPERIOR UPPER, SHAVE BIOPSY: SERVICES -Architecturally disordered junctional nevus with moderate cytologic atypia, encompassed within the examined sections. See microscopic. Attestation By the signature below, [facility] MEDICAL Elec tronically the attending physician CENTER sign ed by Kelvin, certifies that they LABORATORY Aundrea Stewart MD on have 1) personally SERVICES 08/16/2021 at 1311 conducted a gross and/or microscopic examination of the described specimen(s), and/or personally interpreted the results of laboratory testing of the described specimen(s), and 2) personally rendered or confirmed the above diagnosis. Microscopic The shave biopsy from the cl avicular neck shows a broad and atypical junctional melanocytic proliferation. Single cell growth and nested melanocytes are noted along the junction. Cytologic atypia is not [facility] Description ed. A dermal component is se en comprised of small nests. A SOX-10 ALK PHOS (SP267, Cell Filmaka) is performed and shows the breadth of the lesion, single cell scatter involving a peripheral edge. CENTER LABORATORY The shave biopsy from the ba ck shows a broad junctional melanocytic proliferation. Individual melanocytes are seen along the junction. Upward migration is not appreciated. A SOX-10 ALK PHOS (SP267, Cell [employer]in) is performed and sh ows individual cell scatter along the junction with scattered upward migration. Confluent growth is not seen. The lesion appears encompassed within the examined sections.. Organizational Effectiveness Consultant slides of thi s case were reviewed at the intradepartmental consultation conference. NOTE: One or more of the re agents used in immunoperoxidase testing in this case may not have been cleared or approved by the U.S. Food and Drug Administration (FDA). The FDA has determined that such cl earance or approval is not n ecessary. These tests are used for clinical purpose Clinical History A. 1.2 cm dark irregular mac ule; DDx: atypical nevus vs other; B. 6 mm dark irregular macule; DDx: atypical nevus vs other; clinical diagnosis code: D48.5 [facility] Gross Description A. [facility] Received in formalin leighton d with proper patient identification (initials M, J) and right clavicular neck is a shave biopsy of an ill-defined brown macule (1.2 x 0.8 x 0.1 cm). The specimen is inked, trisected and submitted in A1. [facility]ENTER LABORATORY B. SERVICES Received in formalin leighton d with proper patient identification (initials M, J) and right superior upper back is a shave biopsy of an ill-defined dark brown granular macule (0.5 x 0.4 x 0.1 cm). The specimen is inked, bisected and submitted in B1. GINNY MCKINNEY([facility]) 08/15/2021 8:15 Performing Lab [facility] HOSPITAL LAB [facility] Scanned Images [facility] Specimen Tissue - Skin (tissue) specimen (specime n) Tissue specimen (specimen) - Skin (tissu e) specimen (specimen) Performing Organization Address City/State/ZIP Code Phon e Number [facility] [address] [place] [address] SERVICES documented in this encounter Visit Diagnoses Diagnosis Neoplasm of uncertain behavior of skin documented in this encounter Care Teams Percussion Instructor Relationship Specialty Start Date End Date Grover Herman MD PCP - General 06/06/[address] [place] [address] documented as of this encounter
--- OUTSIDE RECORDS SUMMARY | 2022-07-01 13:54 | XMS_ITS | Encounter Summary ---
:1955 Author Organization [facility] Address [address] [place] [address] Care Team Providers Name Role Phone Grover Herman MD Primary Care Provider Encounter Details Date Type Department Care Team Description 07/25/2020 Results Only Imaging [facility] - Dominick Lujan MD [facility] [address] [facility] [address] [place] [address] [place], [place] [phone] (Wo rk) Social History Tobacco Use Types Packs/Day Years Used Date Never Smoker Smokeless Tobacco: Never Used Sex Assigned at Date Recorded Not on file documented as of this encounter Plan of Treatment Not on filedocumented as of this encounter Procedures Procedure Name Priority Date/Time Associated Diagnosis Comme nts NM BONE WHOLE BODY 07/25/2020 17:14 Resul ts for this EST procedure are i n the results section. CT ABDOMEN PELVIS W 07/25/2020 9:51 EST R esults for this CONTRAST procedure are i n the results section. documented in this encounter Results NM BONE WHOLE BODY (07/25/2020 17:14 EST) Specimen Narrative [facility] RAD[facility] - 07/25/2020 17:14 EST ? EXAM: NUCLEAR MEDICINE/BONE SCAN - WHOLE ??EX. D/ (1232) ? CLINICAL INFORMATION: ? C61 HIGH RISK PROSTATE CANCER ? R/O METASTATIC DISEASE ? PROCEDURE INFORMATION: ? Exam: NM Bone and/or Joint, Whole Body ? Exam date and time: 07/25/2020 12 :32 PM ? Age: 64 years old ? 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 cancer, R/O metastatic disease ? TECHNIQUE: ? Imaging protocol: Nuclear bone sc an was obtained. ? Views: Anterior and posterior who le body; Frontal ? Radiopharmaceutical: 21mCi Tc-99m MDP, IV ? Time of imaging post radiopharmac eutical administration: 2 hours ? COMPARISON: ? No relevant prior studies availab le. ? FINDINGS: ? Bones/joints: The bone scan shows normal distribution of ? radiopharmaceutical throughout th e visualized osseous ? structures. Symmetrical distribut ion of increased ? radiopharmaceutical in bilateral shoulder joints, most likely ? osteo arthritic changes. ? Soft tissues: There is radiopharm aceutical in the left renal ? pelvis. Clinical correlation mild hydronephrosis ? IMPRESSION: ? No evidence for metastatic diseas e. ? Small amount of radiopharmaceutic al in the left renal pelvis. ? Correlation with mild hydronephro sis. ? REPORT SIGNED IN OTHER VENDOR SYSTEM 07/25/2020 ?Reported B y: Moreno Myers MD ? CC: ? Transcribed Date/Time: 07/25/2020 (1714) ? Medical Lab Director: ? Printed Date/Time: 07/25/2020 (17 14) ? PAGE 1 ? Carrie d Report ? Procedure Note Moreno Myers DO - 08/06/2020 EXAM: NUCLEAR MEDICINE/BONE SCAN - WHOL E EX. D/ (1232) CLINICAL INFORMATION: C61 HIGH RISK PROSTATE CANCER R/O METASTATIC DISEASE PROCEDURE INFORMATION: Exam: NM Bone and/or Joint, Whole Body Exam date and time: 07/25/2020 12:32 PM Age: 64 years old Clinical indication: Condition or disea se; Metastatic of secondary malignancy of bone; Patient H X: C61 high risk prostate cancer, R/O metastatic disease TECHNIQUE: Imaging protocol: Nuclear bone scan was obtained. Views: Anterior and posterior whole bod y; Frontal Radiopharmaceutical: 21mCi Tc-99m MDP, IV Time of imaging post radiopharmaceutica l administration: 2 hours COMPARISON: No relevant prior studies available. FINDINGS: Bones/joints: The bone scan shows shelley l distribution of radiopharmaceutical throughout the visu alized osseous structures. Symmetrical distribution of increased radiopharmaceutical in bilateral should er joints, most likely osteo arthritic changes. Soft tissues: There is radiopharmaceuti amee in the left renal pelvis. Clinical correlation mild hydro nephrosis IMPRESSION: No evidence for metastatic disease. Small amount of radiopharmaceutical in the left renal pelvis. Correlation with mild hydronephrosis. REPORT SIGNED IN OTHER VENDOR SYSTEM 07/25/2020 Reported By: Moreno Myers MD CC: Transcribed Date/Time: 07/25/2020 (0482 ) Medical Lab Director: Printed Date/Time: 07/25/2020 (5292) PAGE 1 Signed Report Performing Organization Address City/State/ZIP Code Phon e Number [facility] RAD[facility] CT ABDOMEN PELVIS W CONTRAST (07/25/2020 9:51 EST) Specimen Narrative [facility] - 07/25/2020 9:51 EST ? EXAM: CAT SCAN/ABDOMEN PELVIS WITH CONTRA EX. D/ (0923) ? CLINICAL INFORMATION: ? C61 HIGH RISK PROSTATE CANCER ? R/O METASTATIC DISEASE ? PROCEDURE INFORMATION: ? Exam: CT Abdomen And Pelvis With Contrast ? Exam date and time: 07/25/2020 9: 23 AM ? Age: 64 years old ? Clinical indication: Other: Prost ate CA; Prior surgery; Surgery ? date: 6+ months; Additional info: C61 high risk prostate cancer, ? R/O metastatic disease ? TECHNIQUE: ? Imaging protocol: Computed tomogr aphy of the abdomen and pelvis ? with intravenous contrast. ? Radiation optimization: All CT sc ans at this facility use at ? least one of these dose optimizat ion techniques: automated ? exposure control; mA and/or kV ad justment per patient size ? (includes targeted exams where do se is matched to clinical ? indication); or iterative reconst ruction. ? Contrast material: OMNIPAQUE 350; Contrast volume: 100 ml; ? Contrast route: INTRAVENOUS (IV); ? COMPARISON: ? No relevant prior studies availab le. ? FINDINGS: ? Liver: Mild fatty infiltration of the liver. ? Gallbladder and bile ducts: Shelley l. No calcified stones. No ? ductal dilation. ? Pancreas: Normal. No ductal dilat ion. ? Spleen: Normal. No splenomegaly. ? Adrenal glands: Normal. No mass. ? Kidneys and ureters: Parapelvic c ysts and extrarenal pelves are ? seen in both kidneys with no evid ence of hydronephrosis. ? Stomach and bowel: Moderately sev ere generalized colonic ? diverticulosis is present, with n o evidence of acute ? diverticulitis. ? Appendix: No evidence of appendic itis. ? Intraperitoneal space: Unremarkab le. No free air. No significant ? fluid collection. ? Vasculature: Unremarkable. No abd ominal aortic aneurysm. ? Lymph nodes: Unremarkable. No enl arged lymph nodes. No evidence ? of soft tissue metastatic disease . ? Urinary bladder: Unremarkable as visualized. ? 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 causing metallic CT artifact whic h obscures most of the prostate ? region. The prostate gland is par tially visible but appears at ? the upper limits of normal size m easuring 4.8 cm transversely. ? Bones/joints: Mild chronic degene rative vertebral body endplate ? osteophytic disease is seen in th e mid to lower thoracic spine. ? Chronic degenerative discovertebr al disease is additionally seen ? in the lumbar spine with endplate osteophytosis and diminished ? disc height at multiple levels, e specially at L5/S1. ? Soft tissues: Unremarkable. ? PAGE 1 ? Carrie d Report ? (CONTINUED) ? IMPRESSION: ? 1. Bilateral total hip arthroplas ties are present causing ? metallic CT artifact which obscur es most of the prostate region. ? The prostate gland is partially v isible but appears at the upper ? limits of normal size measuring 4 .8 cm transversely. ? 2. Parapelvic cysts and extrarena l pelves are seen in both ? kidneys with no evidence of hydro nephrosis. ? 3. Mild fatty infiltration of the liver. ? 4. Moderately severe generalized colonic diverticulosis is ? present, with no evidence of acut e diverticulitis. ? 5. Mild chronic degenerative vert ebral body endplate osteophytic ? disease is seen in the mid to low er thoracic spine. Chronic ? degenerative discovertebral disea se is additionally seen in the ? lumbar spine with endplate osteop hytosis and diminished disc ? height at multiple levels, especi ally at L5/S1. No evidence of ? bony metastatic disease. ? REPORT SIGNED IN OTHER VENDOR SYSTEM 07/25/2020 ?Reported B y: Mihir Ferrara MD ? CC: ? Transcribed Date/Time: 07/25/2020 (950) ? Medical Lab Director: ? Printed Date/Time: 07/25/2020 () ? PAGE 2 ? Carrie d Report ? Procedure Note Mihir Ferrara MD - 08/06/2020 EXAM: CAT SCAN/ABDOMEN PELVIS WITH CONT RA EX. D/ (09) CLINICAL INFORMATION: C61 HIGH RISK PROSTATE CANCER R/O METASTATIC DISEASE PROCEDURE INFORMATION: Exam: CT Abdomen And Pelvis With Contra st Exam date and time: 07/25/2020 9:23 AM Age: 64 years old Clinical indication: Other: Prostate CA ; Prior surgery; Surgery date: 6+ months; Additional info: C61 h igh risk prostate cancer, R/O metastatic disease TECHNIQUE: Imaging protocol: Computed tomography o f the abdomen and pelvis with intravenous contrast. Radiation optimization: All CT scans at this facility use at least one of these dose optimization te chniques: automated exposure control; mA and/or kV adjustme nt per patient size (includes targeted exams where dose is matched to clinical indication); or iterative reconstructio n. Contrast material: OMNIPAQUE 350; Contr ast volume: 100 ml; Contrast route: INTRAVENOUS (IV); COMPARISON: No relevant prior studies available. FINDINGS: Liver: Mild fatty infiltration of the l iver. Gallbladder and bile ducts: Normal. No calcified stones. No ductal dilation. Pancreas: Normal. No ductal dilation. Spleen: Normal. No splenomegaly. Adrenal glands: Normal. No mass. Kidneys and ureters: Parapelvic cysts a nd extrarenal pelves are seen in both kidneys with no evidence o f hydronephrosis. Stomach and bowel: Moderately severe ge neralized colonic diverticulosis is present, with no evid ence of acute diverticulitis. Appendix: No evidence of appendicitis. Intraperitoneal space: Unremarkable. No free air. No significant fluid collection. Vasculature: Unremarkable. No abdominal aortic aneurysm. Lymph nodes: Unremarkable. No enlarged lymph nodes. No evidence of soft tissue metastatic disease. Urinary bladder: Unremarkable as visual ized. Reproductive: Bilateral total hip arthr oplasties are present causing metallic CT artifact which obsc ures most of the prostate region. The prostate gland is partially visible but appears at the upper limits of normal size measuri ng 4.8 cm transversely. Bones/joints: Mild chronic degenerative vertebral body endplate osteophytic disease is seen in the mid to lower thoracic spine. Chronic degenerative discovertebral dis ease is additionally seen in the lumbar spine with endplate osteo phytosis and diminished disc height at multiple levels, especia lly at L5/S1. Soft tissues: Unremarkable. PAGE 1 Signed Report (CONTINUED) IMPRESSION: 1. Bilateral total hip arthroplasties a re present causing metallic CT artifact which obscures mos t of the prostate region. The prostate gland is partially visible but appears at the upper limits of normal size measuring 4.8 cm transversely. 2. Parapelvic cysts and extrarenal pelv es are seen in both kidneys with no evidence of hydronephro sis. 3. Mild fatty infiltration of the liver . 4. Moderately severe generalized coloni c diverticulosis is present, with no evidence of acute dive rticulitis. 5. Mild chronic degenerative vertebral body endplate osteophytic disease is seen in the mid to lower tho racic spine. Chronic degenerative discovertebral disease is additionally seen in the lumbar spine with endplate osteophytosi s and diminished disc height at multiple levels, especially a t L5/S1. No evidence of bony metastatic disease. REPORT SIGNED IN OTHER VENDOR SYSTEM 07/25/2020 Reported By: Mihir Ferrara MD CC: Transcribed Date/Time: 07/25/2020 (950 ) Medical Lab Director: Printed Date/Time: 07/25/2020 (950) PAGE 2 Signed Report Performing Organization Address City/State/ZIP Code Phon e Number [facility] documented in this encounter Visit Diagnoses Not on filedocumented in this encounter Care Teams Equipment Driver Relationship Specialty Start Date End Date Grover Herman MD PCP - General 06/06/20 [address] [facility] [address] [place] [address] documented as of this encounter
--- OUTSIDE RECORDS SUMMARY | 2022-07-01 13:54 | XMS_ITS | Encounter Summary ---
:1955 Author Organization [facility] Address [address] [place] [address] Care Team Providers Name Role Phone Grover Herman MD Primary Care Provider Encounter Details Date Type Department Care Team Description 09/12/[address] [facility] Juan José Arrington, lanocytic nevi of Pathology & PA scalp and neck Laboratory Medicine [address] [place] [id number] Social History Tobacco Use Types Packs/Day Years [...] Associated Diagnosis Comme nts SURGICAL PATHOLOGY Today 09/12/2021 11:46 Melanocytic nevi o f Results for this EST scalp and neck procedure are in the results section. documented in this encounter Results SURGICAL PATHOLOGY (09/12/2021 11:46 EST) Note to Patient The following [facility] MEDICAL pathology results CENTER have been interpreted LABORATORY by your pathologist SERVICES and may be available to you before your health provider has had the opportunity to review them. Please allow time for your provider to receive these results and explore management options, if applicable. Final Diagnosis A. SKIN OF NECK, RIGHT CLAVICULAR, EXCISION: [facility] - Epidermal reparative change and dermal scar. See com ment. CENTER - No residual atypical nevus identified. LABORATORY SERVICES Diagnosis Comment The patient's prior [facility] MEDICAL biopsy ([id number]) CENTER has been reviewed in LABORATORY conjunction with the SERVICES current specimen. Attestation By the signature [facility] Electronic[facility] l[facility] below, the attending CENTER signed by Vickey, physician certifies LABORATORY Sherly vasquez MD on that they have 1) SERVICES 09/16/2021 a t 1036 personally conducted a gross and/or microscopic examination of the described specimen(s), and/or personally interpreted the results of laboratory testing of the described specimen(s), and 2) personally rendered or confirmed the above diagnosis. Clinical History 1.5 cm pink scar at [facility] biopsy site; DDx: CENTER Severely atypical LABORATORY nevus; Notes: Please SERVICES check margins, previous accession [id number]; clinical diagnosis code: D22.4 Gross Description A. [facility] Received in formalin leighton d with proper patient identification (initials M, J) and right clavicular neck is an unoriented elliptical excision of oshea wrinkled skin (4.5 x 1.7 cm, excised to a depth o CENTER f 0.9 cm). There is a pink w ell-healed scar (1.4 x 0.4 cm) located on the skin surface. The margins are inked blue. The specimen is serially sectioned and entirely submitted as A1 tips, reverse en face and A2-A6 central sections. LABORATORY SERVICES GINNY JACOBS(ASCP) 09/12/2021 16:59 Performing Lab [facility] LABORATORY SERVICES Scanned Images [facility] LABORATORY SERVICES Specimen Tissue - Skin (tissue) specimen (specime n) Performing Organization Address City/State/ZIP Code Phon e Number [facility] LABORATORY [address] [place] [address] SERVICES documented in this encounter Visit Diagnoses Diagnosis Melanocytic nevi of scalp and neck Benign neoplasm of scalp and skin of nec k documented in this encounter Care Teams Cyber Security Analyst Relationship Specialty Start Date End Date Grover Herman MD PCP - General 06/06/[address] [place] [address] 6 [place], [place] [address] documented as of this encounter
--- OUTSIDE RECORDS SUMMARY | 2022-07-01 13:54 | XMS_ITS | Encounter Summary ---
:1955 Author Organization [facility] Address [address] [place] [address] Care Team Providers Name Role Phone Grover Herman MD Primary Care Provider Encounter Details Date Type Department Care Team Description 09/11/2021 Lab Requisition [facility] Outr Resulting Lab, Pathology & Laboratory Provider [facility] [address] [place] [id number] Social History Tobacco Use Types Packs/Day Years Used Date Never Smoker Smokeless Tobacco: Never Used Sex Assigned at Date Recorded Not on file documented as of this encounter Plan of Treatment Not on filedocumented as of this encounter Procedures Procedure Name Priority Date/Time Associated Diagnosis Comme nts HOLD SST Today 09/11/2021 12:57 Results for this EST procedure are i n the results section. HOLD SST Today 09/11/2021 12:57 Results for this EST procedure are i n the results section. HEPATITIS C AB W Today 09/11/2021 12:57 Results for this REFLEX TO HCV RNA EST procedure are in BY PCR the results section. HEPATITIS A Today 09/11/2021 12:57 Results for this ANTIBODY IGM EST procedure are i n the results section. HEPATITIS A TOTAL Today 09/11/2021 12:57 Result s for this ANTIBODY W REFLEX EST procedure are in the results section. HEPATITIS B SURFACE Today 09/11/2021 12:57 Resu lts for this ANTIBODY EST procedure are i n the results section. HEPATITIS B SURFACE Today 09/11/2021 12:57 Resu lts for this ANTIGEN EST procedure are i n the results section. documented in this encounter Results HEPATITIS A ANTIBODY IGM (09/11/2021 12:57 EST) Pathologist Sig nature Hepatitis A Antibody, Negative Negative [facility] IgM LABORATORY SERVICES Specimen Blood - Venous blood (substance) Narrative [facility] LABORATORY SERVICES - 09/12/2021 11:52 EST The results of this assay can be falsely lowered due to the consumption of Biotin. Performing Organization Address [facility] Code Phon e Number [facility] LABORATORY [address] [place] [address] SERVICES HOLD SST (09/11/2021 12:57 EST) Pathologist Sig nature Hold Hold [facility] LABORATOR Y SERVICES Specimen Blood - Venous blood (substance) Performing Organization Address [facility] Code Phon e Number [facility] LABORATORY [address] [place] [address] SERVICES HOLD SST (09/11/2021 12:57 EST) Pathologist Sig nature Hold Hold [facility] LABORATOR Y SERVICES Specimen Blood - Venous blood (substance) Performing Organization Address [facility] Phon e Number [facility] LABORATORY [address] [place] [address] SERVICES HEPATITIS B SURFACE ANTIBODY (09/11/2021 12:57 EST) Hep B Surface Ab, <3.1 See Note [facility] Quantitative Comment: mIU/mL CENTER LABORATORY Reference Range for Hep B Surface Ab, Quant: SERVICES Positive: >= 10.0 mIU/mL Negative: ??< 10.0 mIU/mL Patient is presumed to not be immune to infection with Hepatitis B Virus. Hep B Surface Ab, Negative See Note [facility] Qualitative Comment: CENTER LABORATORY Reference Range for Hep B Surface Ab, Qual: SERVICES Unvaccinated: ??Negative Vaccinated: ??Positive Specimen Blood - Venous blood (substance) Performing Organization Address [facility] Phon e Number [facility] LABORATORY [address] [place] [address] SERVICES HEPATITIS B SURFACE ANTIGEN (09/11/2021 12:57 EST) Pathologist Sig nature Hep B Surface Ag Negative Negative [facility] LABORATORY SERVICES Specimen Blood - Venous blood (substance) Performing Organization Address [facility] Phon e Number [facility] LABORATORY [address] [place] [address] SERVICES HEPATITIS C AB W REFLEX TO HCV RNA BY PCR (09/11/2021 12:57 EST) Pathologist Sig nature Hep C Antibody Negative Negative [facility] LABORAT ORY SERVICES Specimen Blood - Venous blood (substance) Performing Organization Address [facility]/ZIP Code Phon e Number [facility] LABORATORY [address] [place] [address] SERVICES (ABNORMAL) HEPATITIS A TOTAL ANTIBODY W REFLEX (09/11/2021 12:57 EST) Pathologist Sig nature Hepatitis A Positive (A) Negative [facility] Antibody, Total LABORATORY SERVICES Specimen Blood - Venous blood (substance) Narrative [facility] LABORATORY SERVICES - 09/12/2021 10:37 EST The result of this assay can be falsely elevated (Positive) due to the consumption of Biotin. Performing Organization Address City/[facility] Code Phon e Number [facility] LABORATORY [address] [place] [address] SERVICES documented in this encounter Visit Diagnoses Not on filedocumented in this encounter Care Teams Supervisor Coke Handling Relationship Specialty Start Date End Date Grover Herman MD PCP - General 06/06/[address] [place] [address] 6 [place] [address] documented as of this encounter
--- OUTSIDE RECORDS SUMMARY | 2022-07-01 13:54 | XMS_ITS | Encounter Summary ---
:1955 Author Organization [facility] Address [address] [place] [address] Care Team Providers Name Role Phone Grover Herman MD Primary Care Provider Encounter Details Date Type Department Care Team Description 08/21/2021 Lab Requisition [facility] Outr Resulting Lab, Pathology & Laboratory Provider [facility] [address] [place] [address] Social History Tobacco Use Types Packs/Day Years Used Date Never Smoker Smokeless Tobacco: Never Used Sex Assigned at Date Recorded Not on file documented as of this encounter Plan of Treatment Not on filedocumented as of this encounter Procedures Procedure Name Priority Date/Time Associated Diagnosis Comme nts ANTI NUCLEAR AB Routine 08/21/2021 13:03 Results for this (STUART), IFA EST procedure are i n the results section. documented in this encounter Results ANTI NUCLEAR AB (STUART), IFA (08/21/2021 13:03 EST) STUART Interpretation NegativeComment: Negative [facility] No titer LABORATORY SERVICES performed, STUART Screen is negative. Specimen Blood - Venous blood (substance) Narrative [facility] LABORATORY SERVICES - 08/28/2021 14:58 EST Results were obtained with the INOVA NOV A Lite HEp-2 STUART Kit by indirect immunofluorescence. Performing Organization Address City/State/ZIP Code Phon e Number [facility] LABORATORY [address] [place] [address] SERVICES documented in this encounter Visit Diagnoses Not on filedocumented in this encounter Care Teams Tension Worker Relationship Specialty Start Date End Date Grover Herman MD PCP - General 06/06/[address] [place] [address] documented as of this encounter
--- OUTSIDE RECORDS SUMMARY | 2022-07-01 13:54 | XMS_ITS | Clinical Summary ---
:1955 Author Organization [facility] Address [address] [place] [address] Care Team Providers Name Role Phone Grover Herman MD Primary Care Provider Allergies No known active allergies Medications Medication Sig Dispensed Refills Start Date End Date Status oxyCODONE-acetaminoph Take 1 Tab by mouth 0 Active en (PERCOCET) 5-325 every 8 hours as mg per tablet needed for Pain. sulfamethoxazole-trim Take 1 Tab by mouth 6 Tab 0 06/15/20 20 Active ethoprim (BACTRIM DS) 2 times daily. 800-160 mg per Start the day tabletIndications: before your Preventive antibiotic procedure in the morning. Surgical History Surgery Date Site/Laterality Comments TOTAL HIP ARTHROPLASTY 09/14/2006 - 09/13/2007 Bilateral REVISION TOTAL HIP ARTHROPLASTY 12/14/2019 - 01/12/2020 Left Social History Tobacco Use Types Packs/Day Years Used Date Never Smoker Smokeless Tobacco: Never Used Sex Assigned at Date Recorded Not on file Last Filed Vital Signs Vital Sign Reading Time Taken Comments Blood Pressure 141/87 07/17/2020 1523 EST Pulse 71 07/17/2020 1523 EST Temperature 36.1 ??C (96.9 ??F) 07/17/2020 1523 EST Respiratory Rate - - Oxygen Saturation - - Inhaled Oxygen Concentration - - Weight - - Height - - Body Mass Index - - Plan of Treatment Health Maintenance Due Date Last Done Comments COVID-19 Vaccine (1) 11/18/1960 Fall Risk Screening 11/18/2019 Hepatitis C Screen Completed 09/11/2021 Insurance Payer Benefit Plan / Subscriber ID Effective Phone Address T ype Group Dates CIGNA CIGNA [id number] 2020-Pres [phone] [address] Cign a HEALTHCARE TPA ent [phone] [place] [address] MEDICARE MEDICARE A [id number] 2019-Pres [phone] [address] Med icare GL ent [phone] [place] [address] ULTRA ULTRA BENEFITS [id number] 2014-Pres [address] [place] [address] Dominick Castro Personal/Family Self 1955 [address]Home) [place] [address] Dominick Castro Personal/Family Self 1955 [address]Home) [place] [address] Care Teams Spindle Carver Relationship Specialty Start Date End Date Grover Herman MD PCP - General 06/06/20 [address] [facility] [address] [place] [address]
--- OUTSIDE RECORDS SUMMARY | 2022-07-01 13:54 | XMS_ITS | Encounter Summary ---
:1955 Author Organization [facility] Address [address] [facility] [place] [address] Care Team Providers Name Role Phone Grover Herman MD Primary Care Provider Reason for Visit Reason Comments New Patient Visit elevated PSA Encounter Details Date Type Department Care Team Description 06/15/2020 Office Visit [facility] - Dominick Lujan MD Pre-operative laboratory examination (Pr imary Dx); [facility] U[facility] Clinic [address] Preventive antibiotic; [address] [facility] [address] Elevated PSA, between 10 and less than 2 0 ng/[place] [address] [place], [place] [phone] Social History Tobacco Use Types Packs/Day Years Used Date Never Smoker Smokeless Tobacco: Never Used Sex Assigned at Date Recorded Not on file documented as of this encounter Ordered Prescriptions Prescription Sig Dispensed Refills Start Date End Date sulfamethoxazole-trimetho Take 1 Tab by mouth 2 6 Tab 0 06/15/2020 prim (BACTRIM DS) 800-160 times daily. Start the mg per tabletIndications: day before your Preventive antibiotic procedure in the morning. documented in this encounter Progress Notes Dominick Lujan MD - 06/15/2020 0845 EDT Chief Complaint: Chief Complaint Patient presents with ??? New Patient Visit elevated PSA Reason for Consult: Urology was asked to see Dominick at the request of Grover Herman for evaluation of elevated psa. HPI: Dominick is a 64 y.o. male with new finding of PSA of approx 11. States he has not had prior PSA levels. No previous instrumentation. No FHx prostate CA. Stable stream. No dysuria or hematuria. No prior UTI. 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 Due to have bilat THR coming up. Feels well: noc/o otherwise. There is no problem list on file for this patient. PMH PSH No past medical history on file. Past Surgical History: Procedure Laterality Date ??? REVISION TOTAL HIP ARTHROPLASTY Left 12/2019 ??? TOTAL HIP ARTHROPLASTY Bilateral 2006 Social History Family History Social History Tobacco Use ??? Smoking status: Never Smoker ??? Smokeless tobacco: Never Used Substance Use Topics ??? Alcohol use: Not on file No family history on file. Medications Current Outpatient Medications: ??? oxyCODONE-acetaminophen (PERCOCET) 5-325 mg per tablet, Take 1 Tab by mouth every 8 hours as needed for Pain., Disp: , Rfl: Allergies No Known Allergies Review of Systems: Review of Systems Constitutional: Negative. HENT: Negative. Eyes: Negative. Respiratory: Negative. Cardiovascular: Negative. Gastrointestinal: Negative. Genitourinary: Negative. Musculoskeletal: Positive for joint pain. Skin: Negative. Neurological: Negative. Endo/Heme/Allergies: Negative. Psychiatric/Behavioral: Negative. Objective/Physical Exam: Vital Signs: There were no vitals taken for this visit. Exam: Constitutional: Alert, in no distress. Respiratory: Respirations unlabored. Cardiovascular: Pulse regular. Gastrointestinal: Abdomen soft, non tender. Renal: No CVA tenderness. Genital: Uncircumcised phallus with patent meatus at the tip, no plaques. Testes descended bilaterally without masses. Rectal: 50 gm: firm right base Musculoskeletal: Extremities warm without edema. Skin: Skin warm and dry. Neuro: alert and oriented Data Review: NA Labs: PSA: No results found for: PSA Other Studies: N/A Impression: Elevated PSA and abnormal JOSE. We reviewed the implications of these findings. I suggestprostate biopsy. Discussed risks bleeding, infection, sepsis, pain. He understands PSA elevation maybe related to benign causes but given the abnormal prostate exam, he is in agreement about further evaluation. Will schedule for TRUS/biopsy Suggestions/Recommendations: As above Dominick Lujan MD FACS Violet Navarro RN - 06/15/2020 7609 EDT Pt is referred by Dr. Grover Herman of [facility], for PSA of 10.97. JOSE: moderate diffusely enlarged with no nodules. documented in this encounter Plan of Treatment Not on filedocumented as of this encounter Visit Diagnoses Diagnosis Pre-operative laboratory examination - P rimary Pre-procedural laboratory examination Preventive antibiotic Encounter for long-term (current) use of antibiotics Elevated PSA, between 10 and less than 2 0 ng/ml Elevated prostate specific antigen (PSA) documented in this encounter Historical Medications This list may reflect changes made after this encounter. Medication Sig Dispensed Refills Start Date End Date oxyCODONE-acetaminophen Take 1 Tab by mouth 0 (PERCOCET) 5-325 mg per every 8 hours as tablet needed for Pain. added in this encounter Care Teams Streetcar Motorman Relationship Specialty Start Date End Date Grover Herman MD PCP - General 06/06/[address] [place] [address] documented as of this encounter
--- OUTSIDE RECORDS SUMMARY | 2022-07-01 13:54 | XMS_ITS | Encounter Summary ---
:1955 Author Organization [facility] Address [address] [place] [address] Care Team Providers Name Role Phone Grover Herman MD Primary Care Provider Encounter Details Date Type Department Care Team Description 08/21/2021 Lab Requisition [facility] Outr Resulting Lab, Pathology & Laboratory Provider [facility] [address] [place] [address] Social History Tobacco Use Types Packs/Day Years Used Date Never Smoker Smokeless Tobacco: Never Used Sex Assigned at Date Recorded Not on file documented as of this encounter Plan of Treatment Not on filedocumented as of this encounter Procedures Procedure Name Priority Date/Time Associated Diagnosis Comme nts ACUTE HEPATITIS Routine 08/20/2021 19:10 Results for this PROFILE EST procedure are i n the results section. documented in this encounter Results ACUTE HEPATITIS PROFILE (08/20/2021 19:10 EST) Hep B Surface Ag Negative Negative [facility] SERVICES Hep C Antibody Negative Negative [facility] Hepatitis A NegativeComment: The Negative [facility] Antibody, IgM results of this LABORATORY assay can be falsely SERVICES lowered due to the consumption of Biotin. Hepatitis B Core Negative Negative [facility] Ab, Total LABORATORY SERVICES Specimen Blood - Venous blood (substance) Performing Organization Address City/State/ZIP Code Phon e Number [facility] [address] [place] [address] SERVICES documented in this encounter Visit Diagnoses Not on filedocumented in this encounter Care Teams Shake Packer Relationship Specialty Start Date End Date Grover Herman MD PCP - General 06/06/[address] [place] [address] documented as of this encounter
--- OUTSIDE RECORDS SUMMARY | 2022-07-01 13:54 | XMS_ITS | Encounter Summary ---
:1955 Author Organization [facility] Address [address] [place] [address] Care Team Providers Name Role Phone Grover Herman MD Primary Care Provider Encounter Details Date Type Department Care Team Description 08/21/2021 Lab Requisition [facility] Outr Resulting Lab, Pathology & Laboratory Provider [facility] [address] [place] [address] Social History Tobacco Use Types Packs/Day Years Used Date Never Smoker Smokeless Tobacco: Never Used Sex Assigned at Date Recorded Not on file documented as of this encounter Plan of Treatment Not on filedocumented as of this encounter Procedures Procedure Name Priority Date/Time Associated Diagnosis Comme nts CMV IGG Routine 08/21/2021 13:03 EST Results for this procedure are i n the results section . documented in this encounter Results CMV IGG (08/21/2021 13:03 EST) CMV Antibody, IgG NegativeComment: See Note [facility] Absence of LABORATORY detectable CMV IgG SERVICES antibodies. A negative result generally indicates that the patient is susceptible to CMV. Specimen Blood - Venous blood (substance) Performing Organization Address City/State/ZIP Code Phon e Number [facility] [address] [place] [address] SERVICES documented in this encounter Visit Diagnoses Not on filedocumented in this encounter Care Teams Electric Blanket Packer Relationship Specialty Start Date End Date Grover Herman MD PCP - General 06/06/20 [address] [facility] [address] [place], [place] [phone] documented as of this encounter
--- OUTSIDE RECORDS SUMMARY | 2022-07-01 13:54 | XMS_ITS | Encounter Summary ---
:1955 Author Organization [facility] Address [address] [place] [address] Care Team Providers Name Role Phone Grover Herman MD Primary Care Provider Encounter Details Date Type Department Care Team Description 07/25/2020 Results Only [facility] Dominick Lujan MD Urology Clinic [address] [facility] [address] [facility] [address] [place] [address] [place] [address] (Wo rk) Social History Tobacco Use Types Packs/Day Years Used Date Never Smoker Smokeless Tobacco: Never Used Sex Assigned at Date Recorded Not on file documented as of this encounter Plan of Treatment Not on filedocumented as of this encounter Procedures Procedure Name Priority Date/Time Associated Diagnosis Comme nts CREATININE Routine 07/25/2020 8:29 EST Results for this procedure are i n the results section . documented in this encounter Results CREATININE (07/25/2020 8:29 EST) CREATININE 0.72 0.66 - 1.25 [facility] mg/dL [facility] eGFR >60 [facility] Comment: [facility]ENTER [facility] Chronic renal impairment is defined as GFR <60 Multiply result by 1.210 for patients . Specimen Narrative [facility] - 020 8:54 EST Does PT Have a Latex Allergy? NO Performing Organization Address City/State/ZIP Code Phon e Number [facility] [address] [place] [address] documented in this encounter Visit Diagnoses Not on filedocumented in this encounter Care Teams Deckhand Oyster Dredge Relationship Specialty Start Date End Date Grover Herman MD PCP - General 06/06/[address] [place], [place] [phone] documented as of this encounter
--- OUTSIDE RECORDS SUMMARY | 2022-07-01 13:54 | XMS_ITS | Encounter Summary ---
:1955 Author Organization [facility] Address [address] [place] [address] Care Team Providers Name Role Phone Grover Herman MD Primary Care Provider Encounter Details Date Type Department Care Team Description 07/17/2020 Results Only [facility] Marlen Lujan MD Urology Clinic [address] [facility] [address] [facility] [address] [place] [address] [place] [address] (Wo rk) Social History Tobacco Use Types Packs/Day Years Used Date Never Smoker Smokeless Tobacco: Never Used Sex Assigned at Date Recorded Not on file documented as of this encounter Plan of Treatment Not on filedocumented as of this encounter Procedures Procedure Name Priority Date/Time Associated Diagnosis Comme [facility] SURGICAL PATHOLOGY Routine 07/17/2020 Results f or this procedure are i n the results section . documented in this encounter Results SURGICAL PATHOLOGY (07/17/2020) Specimen Narrative [facility] - 020 17:39 EST Name: MARLEN CASTRO ? : [birth year] ?Age/Sex: 64/M ?Unit#: [id number] ? Loc: LAB.OPX ? Status: REG REF ?? Reg Date: 07/17/20 ? Pt.Phone Number : ? Specimen: [id number] ? STA TUS: SOUT ?Spec Date:07/17/20 ? Physician Copies: ?Marlen Lujan MD ? Tissues: A ?? Prostate biopsy (RIGHT MED IAL BASE) ? B ?? Prostate biopsy (RIGHT MEDIAL MID) ? C ?? Prostate biopsy (RIGHT MEDIAL APEX) ? D ?? Prostate biopsy (RIGHT LATERAL BASE) ? E ?? Prostate biopsy (RIGHT LATERAL MID) ? F ?? Prostate biopsy (RIGHT LATERAL APEX) ? G ?? Prostate biopsy (LEFT MEDIAL BASE) ? H ?? Prostate biopsy (LEFT MEDIAL MID) ? I ?? Prostate biopsy (LEFT MEDIAL APEX) ? J ?? Prostate biopsy (LEFT LATERAL BASE) ? K ?? Prostate biopsy (LEFT LATERAL MID) ? L ?? Prostate biopsy (LEFT LATERAL APEX) ? CPT: 23076 ?? Units: 12 ?FINAL DIAGNOSIS ? A. ??PROSTATE, RIGHT MEDIAL BASE, CORE NEEDLE BIOPSY; ? - Prostatic adenocarcinoma, acina r type. ? - [place] score: ??4 + 3 = 7 ( Grade group 3). ?- Percentage of pattern 4 : ??80% ? - Tumor involves approximately 20% of submitted core, continuously. ? - Intraductal carcinoma: ??Not identified. ? - Perineural invasion: ??Not i dentified. ? B. ??PROSTATE, RIGHT MEDIAL MID, CORE NEEDLE BIOPSY; ? - Prostatic adenocarcinoma, acina r type. ? - Laurie score: ??3 + 4 = 7 ( Grade group 2). ?- Percentage of pattern 4 : ??45% ? - Tumor involves approximately 100% of submitted core, discontinuously. ? - Intraductal carcinoma: ??Not identified. ? - Perineural invasion: ??Not i dentified. ? C. ??PROSTATE, RIGHT MEDIAL APEX, CORE NEEDLE BIOPSY; ? - Prostatic adenocarcinoma, acina r type. ? - [place] score: ??3 + 4 = 7 ( Grade group 2). ?- Percentage of pattern 4 : ??10% ? - Tumor involves approximately 15% of submitted core, continuously. ? - Intraductal carcinoma: ??Not identified. ? - Perineural invasion: ??Not i dentified. ? D. ??PROSTATE, RIGHT LATERAL BASE , CORE NEEDLE BIOPSY; ? - Prostatic adenocarcinoma, acina r type. ? - [place] score: ??3 + 4 = 7 ( Grade group 2). Patient: MARLEN CASTRO ? #[id number] ? (Continued) Specimen: [id number] ? Rec eived: 07/17/20-1240 ?(Continued) ?FINAL DIAGNOSIS ? (Continued) ?- Percentage of pattern 4 : ??20% ? - Tumor involves approximately 50% of submitted core, continuously. ? - Intraductal carcinoma: ??Not identified. ? - Perineural invasion: ??Not i dentified. ? E. ??PROSTATE, RIGHT LATERAL MID, CORE NEEDLE BIOPSY; ? - Prostatic adenocarcinoma, acina r type. ? - [place] score: ??3 + 4 = 7 ( Grade group 2). ?- Percentage of pattern 4 : ??30% ? - Tumor involves approximately 30% of submitted core, continuously. ? - High-grade prostatic intraep ithelial neoplasia, focal. ? - Intraductal carcinoma: ??Not identified. ? - Perineural invasion: ??Not i dentified. ? F. ??PROSTATE, RIGHT LATERAL APEX , CORE NEEDLE BIOPSY; ? - Benign prostate tissue. ? G. ??PROSTATE, LEFT MEDIAL BASE, CORE NEEDLE BIOPSY; ? - Benign prostate tissue. ? H. ??PROSTATE, LEFT MEDIAL MID, C ORE NEEDLE BIOPSY; ? - Benign prostate tissue. ? I. ??PROSTATE, LEFT MEDIAL APEX, CORE NEEDLE BIOPSY; ? - Prostatic adenocarcinoma, acina r type. ? - Laurie score: ??3 + 3 = 6 ( Grade group 1). ? - Tumor involves approximately 15% of submitted core, continuously. ? - Intraductal carcinoma: ??Not identified. ? - Perineural invasion: ??Not i dentified. ? J. ??PROSTATE, LEFT LATERAL BASE, CORE NEEDLE BIOPSY; ? - Prostatic adenocarcinoma, acina r type. ? - Laurie score: ??3 + 4 = 7 ( Grade group 2). ?- Percentage of pattern 4 : ??10% ? - Tumor involves approximately 15% of submitted core, continuously. ? - High-grade prostatic intraep ithelial neoplasia, focal. ? - Intraductal carcinoma: ??Not identified. ? - Perineural invasion: ??Not i dentified. ? K. ??PROSTATE, LEFT LATERAL MID, CORE NEEDLE BIOPSY; ? - Benign prostate tissue. ? L. ??PROSTATE, LEFT LATERAL APEX, CORE NEEDLE BIOPSY; ? - Benign prostate tissue. Patient: MARLEN CASTRO ? #[id number] ? (Continued) Specimen: [id number] ? Rec eived: 07/17/20-1241 ?(Continued) ?COMMENT ? Intradepartmental review was obtained. ??A preliminary assessment of these results were electronically communicate d to Dr. Lujan on 07/18/20 through [employer] system. ? GROSS DESCRIPTION ? A. Received in formalin labeled w ith proper patient identification (initials ? M,J) and right medial base is a oshea cylindrical tissue, 1.4 x 0.1 cm, ? entirely submitted in A. DIMITRIS/MELISSA/db ? B. Received in formalin labeled w ith proper patient identification (initials ? M,J) and right medial mid is a oshea cylindrical tissue, 1.8 x 0.1 cm, entirely ? submitted in B. DIMITRIS/MELISSA/db ? C. Received in formalin labeled w ith proper patient identificatino (initials ? M,J) and right medial apex is a oshea cylindrical tissue, 1.8 x 0.1 cm, ? entirely submitted in C. MB/KF/db ? D. Received in formalin labeled w ith proper patient identification (initials ? M,J) and right lateral base is a oshea cylindrical tissue, 1.5 x 0.1 cm, ? entirely submitted in D. MB/KF/db ? E. Received in formalin labeled w ith proper patient identification (initials ? M,J) and right lateral mid is a oshea cylindrical tissue, 1.4 x 0.1 cm, ? entirely submitted in E. MB/KF/db ? F. Received in formalin labeled w ith proper patient identification (initials ? M,J) and right lateral apex is a oshea cylindrical tissue, 1.4 x 0.1 cm, ? entirely submitted in F. MB/KF/db ? G. Received in formalin labeled w ith proper patient identification ? (initials M,J) and left medial b ase is a oshea-colon cylindrical tissue, 1.7 x ? 0.1 cm, entirely submitted in G. MB/KF/db ? H. Received in formalin labeled w ith proper patient identification (initials ? M,J) and left medial mid is a t an cylindrical tissue, 1.8 x 0.1 cm, entirely ? submitted in H. MB/KF/db ? I. Received in formalin labeled w ith proper patient identification (initials ? M,J) and left medial apex is a oshea cylindrical tissue, 1.7 x 0.1 cm, entirely ? submitted in I. MB/KF/db Patient: MARLEN CASTRO ? #[id number] ? (Continued) Specimen: [id number] ? Rec eived: 07/17/20-1240 ?(Continued) ? GROSS DESCRIPTION ?(Continued) ? J. Received in formalin labeled w ith proper patient identification (initials ? M,J) and left lateral base is a oshea cylindrical tissue, 2.0 x 0.1 cm, ? entirely submitted in J. MB/KF/db ? K. Received in formalin labeled w ith proper patient identification (initials ? M,J) and left lateral mid is ta n cylindrical tissue, 1.5 x 0.1 cm, entirely ? submitted in K. MB/KF/db ? L. Received in formalin labeled w ith proper patient identification (initials ? M,J) and left lateral apex is a oshea cylindrical tissue, 0.5 x 0.1 cm, ? entirely submitted in L. MB/KF/db ? and ?? PREOP DX/CLINICAL HISTORY ?ELEVAED PSA Signed ____(signature on file)____ James Brooks 07/18/20 ? By the signature above, the attending ph ysician certifies that he/she has personally conducted a gross and/or microscopic exa mination of the described specimens and rendered or confirmed the above diagnosi s. Test Performed by [facility], [address] [place] [id number] Loss Prevention Lead: Luzmaria Forbes MD PHD Performing Organization Address City/State/ZIP Code Phon e Number [facility] [address] [place] [address] documented in this encounter Visit Diagnoses Not on filedocumented in this encounter Care Teams Waiver Analyst Relationship Specialty Start Date End Date Grover Herman MD PCP - General 06/06/[address] [id number] documented as of this encounter
--- OUTSIDE RECORDS SUMMARY | 2022-07-01 13:54 | XMS_ITS | Encounter Summary ---
:1955 Author Organization [facility] Address [address] [place] [address] Care Team Providers Name Role Phone Grover Herman MD Primary Care Provider Reason for Visit Reason Comments Biopsy prostate Biopsy Encounter Details Date Type Department Care Team Description 07/17/2020 Office Visit [facility] - Dominick Lujan MD Elevated PSA, between [facility] [address] 10 and less than [address] ng/ml (Primary Dx) [place] [address] [place], [place] [phone] Social History Tobacco Use Types Packs/Day [...] - documented in this encounter Progress Notes Viktor Silver - 07/17/2020 1030 EST SERVICE DATE: 07/17/20 SURGEON: Dominick Lujan MD PROCEDURE PERFORMED: Transrectal ultrasound-guided prostate biopsy INDICATION FOR PROCEDURE: PSA of 11 with normal JOSE. After risks of bleeding, infection, sepsis and failure to diagnose an existing prostate cancer were reviewed, informed consent was obtained. 3 days of Bactrim DS BID was initiated yesterday. Gentamicin injection administered one hour ago. 340B medication, 80 mg gentamicin given IM, no wastage. NARRATIVE: The patient was prepped and draped in the left lateral position. The 7.5 MHz Yasmeen [id number] ultrasound probe was passed without difficulty. Real-time axial and sagittal viewings were obtained. The prostate volume was calculated at 30 cubic centimeters. A 22-gauge spinal needle, under real-time ultrasound, was utilized to inject 5 mL of 1% plain lidocaine at the base of both seminal vesicles for procedural analgesia. Utilizing real-time ultrasound and the automatic biopsy device, a total of 12 core biopsies of the prostate were obtained (2 from the base, middle and apex on each side). The biopsies were sent in formalin for pathologic analysis. The patient tolerated the procedure well and was discharged with printed instructions. He will complete the course of ciprofloxacin and contact us with any fevers, chills or significant gross hematuria. He will follow up to discuss the biopsy results. Procedure Time Out: Procedure: Prostate Biopsy Date & Time: 07/17/20 Patient Identified: Dominick Castro , 1955 Agreement on procedure to be done was verified. Correct Patient Position verified. Allergies were verified. Accurate Procedure Consent Form verified and signed.Procedure Side and Site verified. Time Out Team Members: Dr. Dominick Lujan & Viktor Silver MA/LINDA. Due to computer system disruption, additional clinical information for this visit is Scanned Note. For patients, please refer to guidance in [employer] on how to locate information. Generally this information will appear as a scanned documents saved in My Documents activity. documented in this encounter Plan of Treatment Not on filedocumented as of this encounter Visit Diagnoses Diagnosis Elevated PSA, between 10 and less than 2 0 ng/ml - Primary Elevated prostate specific antigen (PSA) documented in this encounter Care Teams School Custodian Relationship Specialty Start Date End Date Grover Herman MD PCP - General 06/06/20 [address] [facility] [address] [place] [address] documented as of this encounter
[2022-07-02 11:24] LABS: PSA, Ultrasensitive 0.48 ng/mL (<= 4.5)
[2022-07-04 12:14] LABS: Testosterone, Total 313 ng/dL (240-950)
== END 2022-07-01 13:15 | disposition home or self-care (01) ==
LOC: LBO 13:42
PROVIDERS: PCP Registered Nurse; Visit Provider Nurse Practitioner Family
DX: C61 Malignant neoplasm of prostate (principal)
CPT/HCPCS: 36415; 80053; 84153; 84403; 85025

== ENCOUNTER 2022-11-05 17:00 | Emergency (ER) | payer BC, SELFPAY ==
[2022-11-05 17:14] VITALS: BP 167/92; PULSE 69; RESP 16; TEMP 37.1; O2SAT 96
--- NOTE | 2022-11-05 17:15 | DI.CT_ITS ---
Exam(s) CT ABDOMEN PELVIS WO EXAM: CT ABDOMEN PELVIS WO CLINICAL HISTORY: left flank pain, eval kidney stone. TECHNIQUE: Imaging Protocol: Axial computed tomography images with coronal and sagittal reformatted images were created and reviewed. COMPARISON: CT CT ABDOMEN PELVIS W from 05/06/2022 FINDINGS: ABDOMEN: Lung Bases: There is scarring or atelectasis in the lung bases. Coronary artery calcification is pre sent. Liver: There is fatty infiltration of the liver. No measurable mass. Gallbladder and biliary tract: Status post cholecystectomy. No biliary ductal dilatation. Pancreas: Normal density, no abnormal calcifications or inflammatory process. Spleen: Normal. Kidneys: Normal size, contour and axis.No radiodense stones or obstructive uropathy. There are again seen simple parapelvic cysts bilaterally. No follow-up is recommended. Adrenal glands: No mass is seen. Lymph nodes: Within normal limits. Abdominal Aorta: Abdominal portion non-dilated. Atherosclerosis is present. PELVIS: Bladder:Symmetric distention, no gross wall thickening. Portions of the urinary bladder not viewed se condary to artifact from the patient's bilateral total hip replacements. Bowel: There is diverticulosis seen in the colon but no evidence of acute diverticulitis. Appendix i s unremarkable. There is a small hiatal hernia. There is no evidence of bowel obstruction. Peritoneal cavity: No ascites, collection or mesenteric inflammatory response. No free air. Reproductive organs: Prostatic seeds are present. Bones: There are bilateral total hip replacements. Age-appropriate degenerative changes are seen in the spine. Soft Tissues: Within normal limits. IMPRESSION: No evidence of nephrolithiasis or hydronephrosis. The distal right and left ureters are obscured as are portion of the urinary bladder secondary to the artifact from the patient's bilateral hip prosthe ses. RADIATION DOSE DELIVERED: 977.79mGy.cm Total DLP DATA REPOSITORY: All CT scans at this facility are submitted to the National Radiology Data Registry (NRDR) Dose Index Registry (DIR) with the [employer] (ACR). RADIATION OPTIMIZATION: All CT scans at this facility use at least one of these dose optimization te chniques: automated exposure control; mA and/or kV adjustment per patient size (includes targeted exa ms where dose is matched to clinical indication); or iterative reconstruction.
[2022-11-05] MEDS: Ketorolac 15 MG/ML VIAL IVP (17:47)
[2022-11-05] MEDS: Normal Saline 500 ML IV (17:47)
[2022-11-05 17:58] LABS: Abs Immature Grans 0.01 10^3/uL (0.0-0.06); Absolute Basophil Count 0.04 10^3/uL (0.0-0.2); Absolute Lymphocyte Count 1.07 10^3/uL (1.2-3.4); Absolute Neutrophil Count 3.37 10^3/uL (1.2-6.7); Basophils % 0.8; Eosinophils % 1.9; HGB 15.2 g/dL (13.5-17.5); Immature Grans % 0.2; Lymphocytes % 20.6; MCH 30.3 pg (27.0-33.0); MCHC 33.8 % (32.0-36.0); MCV 90 fL (80-95); MPV 11.9 fL (8.0-11.0); Monocytes % 11.6; Neutrophils % 64.9; Platelet Count 198 10^3/uL (130-400); RBC 5.01 10^6/uL (4.36-5.78); RDW 13.3 % (11.8-14.1); WBC 5.19 10^3/uL (4.4-10.8)
[2022-11-05 18:04] LABS: Bilirubin Negative (Negative); Blood Negative (Negative); Clarity Clear (Clear); Glucose Negative (Negative); Ketones Negative (Negative); Leukocyte Esterase Negative (Negative); Nitrite Negative (Negative); Specific Gravity >= 1.030 (1.005-1.025); Urobilinogen 0.2 mg/dL (Up to 0.2)
[2022-11-05 18:09] LABS: ALT 47 U/L (16-63); AST 19 U/L (15-37); Albumin 3.9 g/dL (3.4-5.0); Alkaline Phosphatase 89 U/L (46-116); Anion Gap 9.9 mmol/L (3-11); BUN 15 mg/dL (7-18); Bilirubin, Total 0.2 mg/dL (0.2-1.0); CO2 25.1 mmol/L (21.0-32.0); CREATININE 0.9 mg/dL (0.70-1.30); Calcium 8.3 mg/dL (8.5-10.1); Chloride 105 mmol/L (98-107); Estimated GFR 93.61 (mL/min/1.73m2); Glucose 136 mg/dL (74-106); Potassium 3.4 mmol/L (3.5-5.1); Sodium 140 mmol/L (136-145); Total Protein 7.1 g/dL (6.4-8.2)
--- NOTE | 2022-11-05 18:16 | ED.GENADUL_ITS ---
Discharge Plan Disposition Patient Disposition: Home Condition: Good Discharge Details Clinical Impression: Abdominal pain, LLQ Primary Care Provider: Kellen Nair ED Provider: Wayne Glasgow Home Meds and New Rx's Prescriptions: Continued oxycodone-acetaminophen [Percocet] 5-325 mg Tablet 1 tab PO TID tamsulosin [Flomax] 0.4 mg Capsule 0.4 mg PO DAILY amlodipine 5 mg tablet 5 mg PO DAILY Qty: 30 0RF Discharge Instructions Instructions: Abdominal Pain (ED) Additional Instructions: At this time your work-up has returned reassuring. Please continue to monitor your symptoms closely. If you notice any change or transition of your symptoms, please return immediately for reassessment. If you notice any worsening of your symptoms, or any new symptoms such as vomiting, diarrhea, fever, chills, shortness of breath, chest pain, numbness, weakness, or fainting , please return immediately to the emergency department for reevaluation. Please follow up with your primary care provider as soon as possible for reassessment and reevaluation. As always, it was a pleasure participating in your medical care today. Referrals: Kellen Nair, [employer] SALESPERSON [Primary Care Provider] - Medical Decision Making This is a pleasant 66-year-old male with a past medical history of kidney stone, previous prostate cancer who did receive radioactive seeds and directed radiation, cholecystectomy, presents today for evaluation of left flank pain. Is been present for the last 4 to 5 days. It was gradual in onset, and gradually worsened, eventually it became constant and somewhat severe with peaks and troughs of severity. He denies any genital tenderness or pain. He denies any right-sided abdominal pain. He denies any chest pain or shortness of breath. No fever or chills. No blood in his urine. No diarrhea or hematochezia. No other complaints at this time. Patient is made worse with certain movements. Symptoms are not improved with. No other complaints at this time. He does not recall what his previous kidney stones felt like. Physical exam demonstrates a well-appearing male. Nontender genitals. Mild left CVA and left-sided abdominal tenderness. Differential is highest for diverticulitis or kidney stone. We will start with Toradol, get a CT scan, monitor closely and reassess. 8:[address] scan results has returned, no clear evidence of kidney stone at this time. Urinalysis is negative for any blood. No evidence of infection. On reassessment patient is feeling improved after Toradol. Renal function notably stable, urinalysis negative, no white count bandemia or left shift. Without any significant abnormality noted on CT scan, symptoms appear notably nonsurgical noncritical at this time thankfully. EKG was performed, no evidence of STEMI. Patient is notably in the left lower quadrant though, there is no chest pain whatsoever. I had a long discussion with the patient about the findings, as well as the potential sources of the pain. I have recommended that the patient continue to monitor symptoms closely and if it does worsen he should return immediately for reassessment. Discussed red flags for which to return. Patient and feel comfortable going home at this time. I have extensively reviewed the treatment plan and discharge instructions with the patient. I have addressed all patient concerns at this time. The patient was made aware of what symptoms to monitor for that would warrant a return to the emergency department. Discussed the plan with the patient, they demonstrate verbal understanding and agreement with our assessment and plan at this time. The documentation in this chart was dictated using [employer] dictation software. Please excuse any dictation errors. FINDINGS: Lungs: Minimal dependent subsegmental atelectasis. Liver: Fatty liver with no gross masses on noncontrast imaging. Gallbladder and bile ducts: Cholecystectomy. Pancreas: No gross pathology in the pancreas on noncontrast imaging. Spleen: No splenomegaly or focal lesions. Adrenal glands: No mass. Kidneys and ureters: Benign-appearing renal cysts and probable cysts. Parapelvic cysts right and left kidney. The distal most right and left ureter are obscured. Minor dilation of the left renal pelvis without definite calyceal dilation, favoring a benign extrarenal pelvis similar to prior. No right hydronephrosis. Stomach and bowel: Colonic diverticulosis without diverticulitis. No gross pathology in the small bowel without IV contrast. Appendix: No evidence of appendicitis. Intraperitoneal space: No free air. No significant fluid collection. Vasculature: No abdominal aortic aneurysm. Lymph nodes: No significantly enlarged lymph nodes. Urinary bladder: Unremarkable as visualized. Reproductive: Postsurgical changes in the prostate gland partially obscured by artifact in the pelvis. Bones/joints: Right and left total hip arthroplasty, intact as visualized. Degenerative changes in the spine. No acute fracture or subluxation. Soft tissues: No suspicious lesions. IMPRESSION: The distal most right and left ureter are obscured. No stones in the visualized ureters. Minor dilation of the left renal pelvis without definite calyceal dilation, favoring a benign extrarenal pelvis similar to prior. Incidental findings as above. Thank you for allowing us to participate in the care of your patient. Dictated and Authenticated by: Mag Mendez MD 11/05/2022 7:01 PM Eastern Time ([place] & [place]) HPI General Date/Time Provider Initiated Documentation: 11/05/22 17:27 . HPI Narrative: This is a pleasant 66-year-old male with a past medical history of kidney stone, previous prostate cancer who did receive radioactive seeds and directed radiation, cholecystectomy, presents today for evaluation of left flank pain. Is been present for the last 4 to 5 days. It was gradual in onset, and gradually worsened, eventually it became constant and somewhat severe with peaks and troughs of severity. He denies any genital tenderness or pain. He denies any right-sided abdominal pain. He denies any chest pain or shortness of breath. No fever or chills. No blood in his urine. No diarrhea or hematochezia. No other complaints at this time. Patient is made worse with certain movements. Symptoms are not improved with. No other complaints at this time. He does not recall what his previous kidney stones felt like. Related Data Home Medications Medication Instructions Recorded Confirmed oxycodone-acetaminophen 5 mg-325 1 tab PO TID 08/20/21 11/05/22 mg tablet (Percocet) tamsulosin 0.4 mg capsule (Flomax) 0.4 mg PO DAILY 08/20/21 11/05/22 amlodipine 5 mg tablet 5 mg PO DAILY #30 tabs 08/22/21 11/05/22 Previous Rx's Medication Instructions Recorded amlodipine 5 mg tablet 5 mg PO DAILY #30 tabs 08/22/21 Allergies Allergy/AdvReac Type Severity Reaction Status Date / Time gluten AdvReac Intermediate Unverified 11/05/22 17:18 General Stated Complaint: Abd Prob BIPIN: 3 Review of Systems All systems reviewed & are unremarkable except as noted in HPI and below PFSH All Active Problems (Updated 11/05/22 @ 20:34 by Wayne Glasgow DO) Abdominal pain, LLQ (Acute) Hypertension (Chronic) Discharge planning issues (Acute) DVT prophylaxis (Acute) Hepatitis (Acute) Medical History Celiac disease Prostate cancer Social History Smoking/Tobacco Use Status: Never Smoking risk assessment performed?: Yes Alcohol Intake: never Substance use type: does not use Do you feel safe at home: No Do you feel safe in your relationship?: No Exam Narrative Exam Narrative: 1.Const: Well-nourished, Well-developed, appearing stated age 2.Eyes: PERRL, no conjunctival injection, and symmetrical lids. 3.ENT: Atraumatic external nose and ears. Moist MM. Neck: Symmetric, trachea midline, No thyromegaly. 4.CVS: +S1/S2, No murmurs or gallops. Peripheral pulses 2+ and equal in all extremities. Brisk capillary refill in all extremities. 5.RESP: Unlabored respiratory effort. Clear to auscultation bilaterally. No wheezes rales or rhonchi 6.GI: Soft, Nontender/Nondistended, No hepatosplenomegaly. No guarding or rebound. Minimal left-sided CVA tenderness. Minimal reproducibility for left- sided pain though. 7.MSK: Normocephalic/Atraumatic, Extremities w/o deformity or ttp No cyanosis or clubbing, Normal movement of all extremities 8.Skin: Warm, Dry. No rashes or lesions. 9.Neuro: improvement engineer II-XII grossly intact. Sensation grossly intact, no focal neurologic deficits. 10.Psych: (AAO) x3. Appropriate mood and affect Course Vital Signs Vital signs: Vital Signs Temperature 37.1 C 11/05/22 17:14 Pulse 69 11/05/22 17:14 Respiratory Rate 16 11/05/22 17:14 Blood Pressure 167/92 H 11/05/22 17:14 Pulse Oximetry 96 11/05/22 17:14 Temperature 37.1 C 11/05/22 17:14 Temperature Source Skin 11/05/22 17:14 Pulse 69 11/05/22 17:14 Respiratory Rate 16 11/05/22 17:14 Blood Pressure 167/92 H 11/05/22 17:14 Blood Pressure Position Sitting 11/05/22 17:14 Pulse Oximetry 96 11/05/22 17:14 Oxygen Delivery Method Room Air 11/05/22 17:14 Oxygen Flow Rate 0 11/05/22 17:14 Pain Level 4 11/05/22 17:47 Comment tylenol 1.5 hours 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 modeler 11/05/22 17:14 Lab/Test Results Lab/Test Results: Laboratory Tests Range/Units 11/05/22 11/05/22 11/05/22 17:48 17:48 17:50 WBC (4.4-10.8) 10^3/uL 5.19 RBC (4.36-5.78) 10^6/uL 5.01 Hgb (13.5-17.5) g/dL 15.2 Hct (40.0-50.0) % 45.0 MCV (80-95) fL 90 MCH (27.0-33.0) pg 30.3 MCHC (32.0-36.0) % 33.8 RDW (11.8-14.1) % 13.3 Plt Count (130-400) 10^3/uL 198 MPV (8.0-11.0) fL 11.9 H Immature Gran % 0.2 Neutrophils % 64.9 Lymphocytes % 20.6 Monocytes % 11.6 Eosinophils % 1.9 Basophils % 0.8 Nucleated RBC % (0.0-0.3) % 0.0 Absolute Neutrophils (1.2-6.7) 10^3/uL 3.37 Absolute Lymphocytes (1.2-3.4) 10^3/uL 1.07 L Absolute Monocytes (0.1-0.8) 10^3/uL 0.60 Absolute Eosinophils (0.0-0.7) 10^3/uL 0.10 Absolute Basophils (0.0-0.2) 10^3/uL 0.04 Sodium (136-145) mmol/L 140 Potassium (3.5-5.1) mmol/L 3.4 L Chloride (98-107) mmol/L 105 Carbon Dioxide (21.0-32.0) mmol/L 25.1 Anion Gap (3-11) mmol/L 9.9 BUN (7-18) mg/dL 15 Creatinine (0.70-1.30) mg/dL 0.9 Est GFR (CKD-EPI 2020) (mL/min/1.73m2) 93.61 Glucose (74-106) mg/dL 136 H Calcium (8.5-10.1) mg/dL 8.3 L Total Bilirubin (0.2-1.0) mg/dL 0.2 AST (15-37) U/L 19 ALT (16-63) U/L 47 Alkaline Phosphatase (46-116) U/L 89 Total Protein (6.4-8.2) g/dL 7.1 Albumin (3.4-5.0) g/dL 3.9 Urine Color (Yellow) Yellow Urine Clarity (Clear) Clear Urine pH (5-8) 6.0 Ur Specific [place] (1.005-1.025) >= 1.030 H Urine Protein (Negative) mg/dL Negative Urine Ketones (Negative) mg/dL Negative Urine Blood (Negative) Negative Urine Nitrite (Negative) Negative Urine Bilirubin (Negative) Negative Urine Urobilinogen (Up to 0.2) mg/dL 0.2 Ur Leukocyte Esterase (Negative) Negative Urine Glucose (Negative) mg/dL Negative
--- NOTE | 2022-11-05 19:02 | DI.VRAD_ITS ---
PROCEDURE INFORMATION: Exam: CT Abdomen And Pelvis Without Contrast Exam date and time: 11/05/2022 18:25 Age: 66 years old Clinical indication: Other: Left flank pain, eval kidney stone TECHNIQUE: Imaging protocol: Computed tomography of the abdomen and pelvis without contrast. COMPARISON: CT ABDOMEN PELVIS W 05/06/2022 09:06 FINDINGS: Lungs: Minimal dependent subsegmental atelectasis. Liver: Fatty liver with no gross masses on noncontrast imaging. Gallbladder and bile ducts: Cholecystectomy. Pancreas: No gross pathology in the pancreas on noncontrast imaging. Spleen: No splenomegaly or focal lesions. Adrenal glands: No mass. Kidneys and ureters: Benign-appearing renal cysts and probable cysts. Parapelvic cysts right and left kidney. The distal most right and left ureter are obscured. Minor dilation of the left renal pelvis without definite calyceal dilation, favoring a benign extrarenal pelvis similar to prior. No right hydronephrosis. Stomach and bowel: Colonic diverticulosis without diverticulitis. No gross pathology in the small bowel without IV contrast. Appendix: No evidence of appendicitis. Intraperitoneal space: No free air. No significant fluid collection. Vasculature: No abdominal aortic aneurysm. Lymph nodes: No significantly enlarged lymph nodes. Urinary bladder: Unremarkable as visualized. Reproductive: Postsurgical changes in the prostate gland partially obscured by artifact in the pelvis. Bones/joints: Right and left total hip arthroplasty, intact as visualized. Degenerative changes in the spine. No acute fracture or subluxation. Soft tissues: No suspicious lesions. IMPRESSION: The distal most right and left ureter are obscured. No stones in the visualized ureters. Minor dilation of the left renal pelvis without definite calyceal dilation, favoring a benign extrarenal pelvis similar to prior. Incidental findings as above. Dictated and Authenticated by: Mag Mendez MD. Ordering:ROSHAN Black MD
--- NOTE | 2022-11-05 19:30 | RT.EKG_ITS ---
APPROVED REPORT Exam: Resting ECG Reason for Exam: chest pain Patient Location: E HR:53 bpm ECG Measurements Heart Rate 53 AXIS WV 164 P 58 QRSd 97 QRS 75 QT 454 T 47 QTc 428 Conclusion Sinus bradycardia...rate< [address] elevation, lateral leads...ST >0.06mV, I aVL V5 V6 Physician: no stemi, no recip depressions, minimal less than 1mm elevation in V4 and V5
== END 2022-11-05 20:40 | disposition home or self-care (01) ==
PROVIDERS: Emergency Provider Student in an Organized Health Care Education/Training Program; PCP Registered Nurse
DX: R10.32 Left lower quadrant pain (principal); C61 Malignant neoplasm of prostate; I10 Essential (primary) hypertension; Z90.49 Acquired absence of other specified parts of digestive tract
CPT/HCPCS: 80053; 93005; 96361; 96374; 99284; 74176; 81003; 85025; 93010; 99285; J1885

== ENCOUNTER 2022-12-18 15:01 | Outpatient (CLI) | payer BC, SELFPAY ==
[2022-12-18 15:01] LABS: Abs Immature Grans 0.01 10^3/uL (0.0-0.06); Absolute Basophil Count 0.05 10^3/uL (0.0-0.2); Absolute Eosinophil Count 0.07 10^3/uL (0.0-0.7); Absolute Lymphocyte Count 1.28 10^3/uL (1.2-3.4); Absolute Monocyte Count 0.32 10^3/uL (0.1-0.8); Absolute Neutrophil Count 2.64 10^3/uL (1.2-6.7); Basophils % 1.1; Eosinophils % 1.6; HCT 44.7 % (40.0-50.0); HGB 15.8 g/dL (13.5-17.5); Immature Grans % 0.2; Lymphocytes % 29.3; MCH 31.5 pg (27.0-33.0); MCHC 35.3 % (32.0-36.0); MCV 89 fL (80-95); MPV 11.6 fL (8.0-11.0); Monocytes % 7.3; Neutrophils % 60.5; Platelet Count 185 10^3/uL (130-400); RBC 5.01 10^6/uL (4.36-5.78); RDW 13.5 % (11.8-14.1); RDW-SD 44.2 fL; WBC 4.37 10^3/uL (4.4-10.8)
[2022-12-18 16:02] LABS: ALT 54 U/L (16-63); AST 24 U/L (15-37); Alkaline Phosphatase 68 U/L (46-116); Anion Gap 11.2 mmol/L (3-11); BUN 19 mg/dL (7-18); Bilirubin, Total 0.5 mg/dL (0.2-1.0); CO2 23.8 mmol/L (21.0-32.0); Calcium 8.8 mg/dL (8.5-10.1); Chloride 104 mmol/L (98-107); Estimated GFR 81.98 (mL/min/1.73m2); Glucose 154 mg/dL (74-106); Potassium 3.4 mmol/L (3.5-5.1); Sodium 139 mmol/L (136-145); Total Protein 7.3 g/dL (6.4-8.2)
[2022-12-24 22:42] LABS: Testosterone, Bioavailable 46 ng/dL (40-168); Testosterone, Free 7.24 ng/dL (3.47-13.0); Testosterone, Total 264 ng/dL (240-950)
== END 2022-12-18 15:02 | disposition home or self-care (01) ==
LOC: LBO 15:02
PROVIDERS: PCP Registered Nurse; Visit Provider Nurse Practitioner Family
DX: C61 Malignant neoplasm of prostate (principal)
CPT/HCPCS: 36415; 80053; 84153; 84402; 84403; 84410; 85025

== ENCOUNTER 2023-10-13 15:24 | Outpatient (CLI) | payer BC, SELFPAY ==
[2023-10-13 14:05] LABS: TSH (W/Ref FT4) 1.05 uIU/mL (0.36-3.74)
== END 2023-10-13 15:25 | disposition home or self-care (01) ==
LOC: LBO 15:24
PROVIDERS: PCP Family Medicine; Visit Provider Family Medicine
DX: E04.9 Nontoxic goiter, unspecified (principal)
CPT/HCPCS: 36415; 84443

== ENCOUNTER 2023-12-07 10:14 | Outpatient (CLI) | payer BC, SELFPAY ==
[2023-12-09 11:10] LABS: PSA, Ultrasensitive 0.18 ng/mL (<= 4.5)
== END 2023-12-07 10:15 | disposition home or self-care (01) ==
LOC: LBO 10:14
PROVIDERS: PCP Family Medicine; Visit Provider Radiology Radiation Oncology
DX: C61 Malignant neoplasm of prostate (principal)
CPT/HCPCS: 36415; 84153

== ENCOUNTER 2024-12-13 15:54 | Outpatient (CLI) | payer OTHER, SELFPAY ==
[2024-12-14 18:56] LABS: PSA, Ultrasensitive 0.21 ng/mL (<= 6.5)
== END 2024-12-13 15:55 | disposition home or self-care (01) ==
LOC: LBO 15:55
PROVIDERS: PCP Family Medicine; Visit Provider Colon & Rectal Surgery
DX: C61 Malignant neoplasm of prostate (principal)
CPT/HCPCS: 36415; 84153

== ENCOUNTER 2025-06-13 03:09 | Outpatient (CLI) | payer OTHER, SELFPAY | END 2025-06-13 03:10 | disposition home or self-care (01) | LOC: LBO 03:09 | PROVIDERS: PCP Family Medicine; Visit Provider Physician Assistant | DX: C61 Malignant neoplasm of prostate (principal) | CPT/HCPCS: 36415; 84153 ==